=== PATIENT | male | born 1970 | race Caucasian/White ===

== ENCOUNTER → 2017-02-21 | Outpatient (CLI) | payer OTHER ==
--- NOTE | 2017-02-21 12:41 | US ---
EXAMINATION TYPE: US venous doppler duplex LE LT DATE OF EXAM: 02/21/2017 12:27 PM COMPARISON: NONE CLINICAL HISTORY: L03.116 CELLULITIS OF LOWER EXT,R60.9 EDEMA. SIDE PERFORMED: Left TECHNIQUE: The lower extremity deep venous system is examined utilizing real time linear array sonog brandy with graded compression, doppler sonography and color-flow sonography. VESSELS IMAGED: External Iliac Vein (EIV) Common Femoral Vein Deep Femoral Vein Greater Saphenous Vein * Femoral Vein Popliteal Vein Small Saphenous Vein * Proximal Calf Veins (* superficial vessels) Also, looked at varices in calf. All were compressible. * Note: attempted to call Number provided, office closed. Left Leg: Grayscale, color doppler, spectral doppler imaging performed of the deep veins of the left lower extr emity. There is normal flow, compressibility, vascular waveforms. IMPRESSION: No ultrasound evidence for acute DVT in the left lower extremity.
== END | disposition home or self-care (01) ==
LOC: RADUSWWP 11:55
PROVIDERS: ATTEND Family Medicine
DX: R60.9 Edema, unspecified (principal); L03.116 Cellulitis of left lower limb
CPT/HCPCS: 80048; 85025

== ENCOUNTER 2017-02-22 14:12 | Observation (INO) | payer OTHER ==
--- NOTE | 2017-02-22 14:55 | ED ---
Extremity Problem HPI - General Chief complaint: Extremity Problem,Nontraumatic Stated complaint: Cellulitis Time Seen by Provider: 02/22/17 14:38 Source: patient, RN notes reviewed Mode of arrival: ambulatory Limitations: no limitations - History of Present Illness Initial comments: Patient is a 46-year-old male presents to the emergency room for evaluation of left leg cellulitis. Patient states he noticed yesterday a red streak going up his anterior bland. Patient states he went to his primary care provider and they did blood work and a venous Doppler ultrasound. Patient states ultrasound was negative for a DVT. Patient states he was supposed to be placed on antibiotics but they never called into the pharmacy. Patient states today he noticed that the redness is starting to circumferentiate around his ankle. Patient states that the area is very warm to touch. Patient denies history of cellulitis. Patient denies history of MRSA or any other type of skin infection. Patient denies injuring the area. Patient states he's had a low- grade fever over the past 3 days. Patient states he had nausea and vomiting yesterday. Patient denies numbness or tingling in his toes. Patient denies calf pain. - Related Data Home Medications Medication Instructions Recorded Confirmed No Known Home Medications [No 02/22/17 02/22/17 Known Home Medications] Allergies Allergy/AdvReac Type Severity Reaction Status Date / Time No Known Allergies Allergy Verified 02/22/17 14:49 Review of Systems ROS Statement: Those systems with pertinent positive or pertinent negative responses have been documented in the HPI. ROS Other: All systems not noted in ROS Statement are negative. Past Medical History Past Medical History: No Reported History History of Any Multi-Drug Resistant Organisms: None Reported Past Surgical History: No Surgical Hx Reported Past Psychological History: No Psychological Hx Reported Smoking Status: Former smoker Past Alcohol Use History: None Reported Past Drug Use History: None Reported General Exam - General Exam Comments Initial Comments: Laying in exam room, no distress. Limitations: no limitations General appearance: alert, in no apparent distress Head exam: Present: atraumatic, normocephalic, normal inspection Eye exam: Present: normal appearance ENT exam: Present: normal exam Neck exam: Present: normal inspection Respiratory exam: Present: normal lung sounds bilaterally. Absent: respiratory distress Cardiovascular Exam: Present: regular rate, normal rhythm, normal heart sounds Extremities exam: Present: full ROM, other (Erythema and redness over the anterior bland radiating from the ankle to the inferior portion of the knee, erythema circumferentially radiating around the ankle.). Absent: tenderness Back exam: Present: normal inspection Neurological exam: Present: alert, oriented X3, CN II-XII intact Psychiatric exam: Present: normal affect, normal mood Skin exam: Present: warm, dry, intact Course Vital Signs 02/22/17 02/22/17 14:24 16:25 Temperature 98.6 F 98.0 F Pulse Rate 103 H 89 Respiratory 20 20 Rate Blood Pressure 133/83 137/72 O2 Sat by Pulse 96 98 Oximetry Medical Decision Making - Medical Decision Making Patient is a 46-year-old male presents emergency room for evaluation of left leg cellulitis. Patient states that he was have worsened since yesterday. Patient's WBC is actually lower than it was yesterday. Due to symptoms of spreading, will start patient on Vanco and have him admitted for further evaluation. Case discussed with Dr. Hay. Dr. Hay discussed case with Dr. Hoff who agreed to admit patient. - Lab Data Result diagrams: 02/22/17 15:15 02/22/17 15:15 Lab Results 02/22/17 02/22/17 02/22/17 Range/Units 15:15 15:15 15:15 WBC 11.0 H (3.8-10.6) k/uL RBC 5.56 (4.30-5.90) m/uL Hgb 16.0 (13.0-17.5) gm/dL Hct 46.4 (39.0-53.0) % MCV 83.4 (80.0-100.0) fL MCH 28.8 (25.0-35.0) pg MCHC 34.5 (31.0-37.0) g/dL RDW 13.4 (11.5-15.5) % Plt Count 138 L (150-450) k/uL Neutrophils % 80 % Lymphocytes % 14 % Monocytes % 4 % Eosinophils % 2 % Basophils % 0 % Neutrophils # 8.7 H (1.3-7.7) k/uL Lymphocytes # 1.5 (1.0-4.8) k/uL Monocytes # 0.4 (0-1.0) k/uL Eosinophils # 0.2 (0-0.7) k/uL Basophils # 0.0 (0-0.2) k/uL Sodium 138 (137-145) mmol/L Potassium 3.7 (3.5-5.1) mmol/L Chloride 106 (98-107) mmol/L Carbon Dioxide 22 (22-30) mmol/L Anion Gap 10 mmol/L BUN 13 (9-20) mg/dL Creatinine 1.02 (0.66-1.25) mg/dL Est GFR (MDRD) Af Amer >60 (>60 ml/min/1.73 sqM) Est GFR (MDRD) Non-Af >60 (>60 ml/min/1.73 sqM) Glucose 148 H (74-99) mg/dL Plasma Lactic Acid Milind 0.9 (0.7-2.0) mmol/L Calcium 8.5 (8.4-10.2) mg/dL Total Bilirubin 0.8 (0.2-1.3) mg/dL AST 26 (17-59) U/L ALT 36 (21-72) U/L Alkaline Phosphatase 71 (38-126) U/L Total Protein 6.5 (6.3-8.2) g/dL Albumin 3.5 (3.5-5.0) g/dL Disposition Clinical Impression: Left leg cellulitis Disposition: ADMITTED IP TO THIS [facility] Condition: Stable Decision Date: 02/22/17
[2017-02-22 15:25] LABS: Basophils % (A) 0 %; CH 29.2; CHCM 35.1; Eosinophils # (A) 0.2 k/uL (0-0.7); Eosinophils % (A) 2 %; HCT 46.4 % (39.0-53.0); HDW 2.52; Luc # (Auto) 0.13; Luc % (Auto) 1; Lymphocytes # (A) 1.5 k/uL (1.0-4.8); Lymphocytes % (A) 14 %; MCH 28.8 pg (25.0-35.0); MCHC 34.5 g/dL (31.0-37.0); MCV 83.4 fL (80.0-100.0); Mean Platelet Volume 7.2; Monocytes # (A) 0.4 k/uL (0-1.0); Monocytes % (A) 4 %; Neutrophils # (A) 8.7 k/uL (1.3-7.7); Neutrophils % (A) 80 %; RBC 5.56 m/uL (4.30-5.90); RDW 13.4 % (11.5-15.5); WBC (Perox) 10.26
[2017-02-22 15:38] LABS: ALT 36 U/L (21-72); AST 26 U/L (17-59); Alkaline Phosphatase 71 U/L (38-126); Anion Gap 10 mmol/L; Blood Urea Nitrogen 13 mg/dL (9-20); Calcium 8.5 mg/dL (8.4-10.2); Carbon Dioxide 22 mmol/L (22-30); Chloride 106 mmol/L (98-107); Glucose 148 mg/dL (74-99); Non-African American GFR(MDRD) >60 (>60 ml/min/1.73 sqM); Potassium 3.7 mmol/L (3.5-5.1); Sodium 138 mmol/L (137-145); Total Bilirubin 0.8 mg/dL (0.2-1.3); Total Protein 6.5 g/dL (6.3-8.2)
[2017-02-22] MEDS ORDERED: VANCOMYCIN IV PER PHARMACY 1 EACH MISC MISCELLANE PRN (16:00)
[2017-02-22] MEDS ORDERED: KETOROLAC 30 MG/ML 1 ML VIAL IVP PRN ×2 (16:02→18:52)
[2017-02-22] MEDS ORDERED: NALOXONE 0.4 MG/ML 1 ML VIAL IV PRN (16:02)
[2017-02-22] MEDS ORDERED: ACETAMINOPHEN TAB 325 MG TAB PO PRN (16:02)
[2017-02-22] MEDS ORDERED: ONDANSETRON 4 MG/2 ML VIAL IVP PRN (16:02)
[2017-02-22] MEDS ORDERED: VANCOMYCIN 2,000 MG in SODIUM CHLORIDE 0.9% 500 ML IVPB STA (16:04)
[2017-02-22] MEDS: SODIUM CHLORIDE 0.9% 1,000 ML IV SCH (18:40)
[2017-02-22] MEDS ORDERED: ALPRAZolam 0.25 MG TAB PO PRN (18:51)
[2017-02-22] MEDS ORDERED: TEMAZEPAM 15 MG CAP PO PRN (18:51)
[2017-02-22 20:01] VITALS: BMI 35.9
[2017-02-22] MEDS: IBUPROFEN 400 MG TAB PO PRN (21:01)
[2017-02-22] MEDS: HEPARIN SODIUM,PORCINE 5,000 UNIT/ML 1 ML VIAL SQ SCH (23:14)
[2017-02-22] MEDS: ceFAZolin 2 GM in SODIUM CHLORIDE 0.9% 100 ML IVPB SCH (23:23)
[2017-02-23] MEDS ORDERED: VANCOMYCIN 1,750 MG in SODIUM CHLORIDE 0.9% 250 ML IVPB SCH ×2
[2017-02-23] MEDS: SODIUM CHLORIDE 0.9% 1,000 ML IV SCH ×2 (04:09→14:24)
[2017-02-23 06:56] LABS: Basophils % (A) 1 %; CH 29.6; CHCM 34.7; Eosinophils # (A) 0.4 k/uL (0-0.7); Eosinophils % (A) 4 %; HCT 45.9 % (39.0-53.0); HDW 2.54; HGB 15.4 gm/dL (13.0-17.5); Luc # (Auto) 0.23; Luc % (Auto) 3; Lymphocytes # (A) 2.2 k/uL (1.0-4.8); Lymphocytes % (A) 25 %; MCH 28.7 pg (25.0-35.0); MCHC 33.5 g/dL (31.0-37.0); MCV 85.8 fL (80.0-100.0); Mean Platelet Volume 7.5; Monocytes # (A) 0.5 k/uL (0-1.0); Monocytes % (A) 6 %; Neutrophils # (A) 5.6 k/uL (1.3-7.7); Neutrophils % (A) 62 %; RBC 5.34 m/uL (4.30-5.90); RDW 14.9 % (11.5-15.5); WBC 8.9 k/uL (3.8-10.6); WBC (Perox) 9.06
[2017-02-23 07:18] LABS: Anion Gap 7 mmol/L; Blood Urea Nitrogen 13 mg/dL (9-20); Calcium 8.4 mg/dL (8.4-10.2); Carbon Dioxide 21 mmol/L (22-30); Chloride 109 mmol/L (98-107); Glucose 97 mg/dL (74-99); Non-African American GFR(MDRD) >60 (>60 ml/min/1.73 sqM); Potassium 3.9 mmol/L (3.5-5.1); Sodium 137 mmol/L (137-145)
[2017-02-23 07:52] LABS: Hemoglobin A1C 5.7 % (4.2-6.1)
[2017-02-23] MEDS: ceFAZolin 2 GM in SODIUM CHLORIDE 0.9% 100 ML IVPB SCH ×2 (08:42→16:10)
[2017-02-23] MEDS: HEPARIN SODIUM,PORCINE 5,000 UNIT/ML 1 ML VIAL SQ SCH ×2 (08:44→21:43)
[2017-02-23] MEDS: PANTOPRAZOLE 40 MG TABLET PO SCH (08:44)
[2017-02-23] MEDS: HYDROcodone/APAP 5-325MG 1 EACH TAB PO PRN ×2 (09:32→16:05)
--- NOTE | 2017-02-23 10:28 | HP ---
HISTORY AND PHYSICAL DATE OF SERVICE: 02/22/2002. CHIEF COMPLAINT: Pain and swelling of the left leg. HISTORY: This 46-year-old gentleman with past medical history of no significant illness, nicotine dependence, being followed by Dr. 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 In December the patient had an episode of cellulitis treated with antibiotics and improved significantly on the left leg. Currently for the last couple of days the patient was noted to have pain, redness, and swelling of the left leg. The patient came to [facility] and was admitted for further evaluation. The patient also had some nausea, vomiting, and abdominal symptoms also. Ultrasound was negative for DVT. There is no history of fevers or rigors. No history of headache, loss of consciousness, or seizures at this time. PAST MEDICAL HISTORY: History of a cellulitis, history of nicotine dependence. MEDICATIONS: None prior to admission. ALLERGIES: None. FAMILY HISTORY: No h/o stroke or mi in the family. SOCIAL HISTORY: Previous history of smoking. No alcohol. REVIEW OF SYSTEMS: ENT: No diminished vision or hearing. CARDIOVASCULAR: No angina. RESPIRATORY: No cough or hemoptysis. GI: No nausea. : No dysuria. NERVOUS SYSTEM: No numbness or weakness. MUSCULOSKELETAL: As mentioned. HEMATOLOGY: No anemia. ENDOCRINE: No history of diabetes or hypothyroidism. CONSTITUTIONAL: As mentioned. HEMATOLOGY: Negative. PSYCHIATRY: As mentioned earlier. PHYSICAL EXAMINATION: VITAL SIGNS: The patient is alert and oriented x3. Pulse is 89, blood pressure 137/72, respiratory rate 20, temperature 98 degrees, pulse ox 98% on room air. HEENT: Conjunctivae normal. NECK: No JVD. CARDIOVASCULAR: S1 and S2 muffled. LUNGS: Breath sounds diminished at the bases. No rhonchi no crackles. ABDOMEN: Soft, nontender. No mass palpable. EXTREMITIES: Left leg has significant dryness of skin as well as erythema, tenderness, and warmth to the touch in the right mid part of the leg circumferentially. Otherwise pulses normal. NERVOUS SYSTEM: Higher functions as mentioned. Moves all limbs equally. No focal motor or sensory defects. SKIN: As mentioned. LABS: WBC 11, platelets 130. ASSESSMENT: 1. Acute left leg cellulitis with systemic inflammatory response syndrome. 2. Mild thrombocytopenia. 3. Increased random blood sugar. 4. History of nicotine dependence. RECOMMENDATIONS AND DISCUSSION: In this 46-year-old gentleman who presented with multiple complex medical issues , we will monitor the patient closely. Continue the current management and start on broad- spectrum IV antibiotics. Otherwise I would also recommend repeat labs. Symptomatic treatment of the same. DVT prophylaxis. Otherwise I would also recommend a hemoglobin A1c. Symptomatic treatment for pain. Otherwise prognosis is guarded because of multiple complex medical issues. Further recommendations to follow. EMIR / KYLEEN: [id number] / MTDYvan
[2017-02-23] MEDS: IBUPROFEN 400 MG TAB PO PRN (12:58)
--- NOTE | 2017-02-23 21:33 | PN ---
PROGRESS NOTE DATE OF SERVICE: 02/23/2017 This is a progress note. INTERVAL HISTORY: This 46-year-old gentleman admitted with left leg cellulitis and SARS is being closely monitored. The erythema is slightly better and distribution of pain and warmth over the area on the left leg cellulitis. No chest pain. No palpitations. No fever. PHYSICAL EXAM: Alert, oriented times three. Pulse 88, blood pressure 110/60, respiration 18, temperature 97.9, pulse ox 94% room air. HEENT: Conjunctivae normal. Neck: No jugular venous distention. CARDIOVASCULAR: S1, S2. Respiratory: Breath sounds diminished in the bases. No rhonchi. No crackles. ABDOMEN: Soft, nontender. No mass palpable. Legs no edema. No swelling. Central nervous system: No focal deficits. Left leg erythema, tenderness and evidence cellulitis present. LABS: WBC 8.2, hemoglobin 15.1, platelets 140. ASSESSMENT: 1. Acute left leg cellulitis with severe acute respiratory syndrome. 2. Mild thrombocytopenia. 3. Increased random blood sugar. 4. History of nicotine dependence. RECOMMENDATIONS AND DISCUSSION: 1. Recommend to continue current medications. 2. Continue with broad-spectrum IV antibiotics. 3. I would also recommend Silvadene for local application also. 4. Guarded prognosis. 5. Further recommendations to follow. MMODL / IJN: [id number] /
[2017-02-24] MEDS: ceFAZolin 2 GM in SODIUM CHLORIDE 0.9% 100 ML IVPB SCH ×4 (00:17→23:36)
[2017-02-24] MEDS: SODIUM CHLORIDE 0.9% 1,000 ML IV SCH ×3 (03:21→18:19)
[2017-02-24 07:35] LABS: Anion Gap 8 mmol/L; Blood Urea Nitrogen 12 mg/dL (9-20); Calcium 8.3 mg/dL (8.4-10.2); Carbon Dioxide 23 mmol/L (22-30); Chloride 106 mmol/L (98-107); Glucose 97 mg/dL (74-99); Non-African American GFR(MDRD) >60 (>60 ml/min/1.73 sqM); Potassium 3.9 mmol/L (3.5-5.1); Sodium 137 mmol/L (137-145)
[2017-02-24] MEDS: PANTOPRAZOLE 40 MG TABLET PO SCH (07:35)
[2017-02-24] MEDS: HEPARIN SODIUM,PORCINE 5,000 UNIT/ML 1 ML VIAL SQ SCH ×3 (09:05→23:47)
[2017-02-24] MEDS: IBUPROFEN 400 MG TAB PO PRN (15:06)
--- NOTE | 2017-02-24 19:09 | P.PN ---
Subjective Date of service 02/24/2017. Personal being dictated for Dr. Hoff. Interval history: This a 46-year-old gentleman admitted with left leg cellulitis , and multiple other medical issues. Maintained on antibiotics, Silvadene dressings with improvement noted. Denies chest pain, palpitations. Afebrile. Objective - Vital Signs Vital signs: Vital Signs Temp 98.3 F 02/24/17 15:00 Pulse 88 02/24/17 16:00 Resp 14 02/24/17 16:00 BP 137/71 02/24/17 15:00 Pulse Ox 95 02/24/17 15:00 Intake & Output 02/24/17 02/24/17 02/25/17 06:59 18:59 06:59 Intake Total 800 240 Output Total 2 Balance 800 238 Intake: Oral 800 240 Output: Urine 2 Other: Voiding Method Toilet Toilet # Voids 1 1 - Exam PHYSICAL EXAM: VITAL SIGNS: As above GENERAL: During up in bed, no acute distress HEENT: Conjunctivae normal. eyes normal. NECK: No JVD. No thyroid enlargement. No LNs CARDIOVASCULAR: S1, S2 muffled. No murmur RESPIRATION: Breath sounds diminished in the bases. No rhonchi or crackles. No bronchial breathing. ABDOMEN: Soft, nontender . No guarding. no masses palpable. No ascites, No hepatosplenomegaly.Bowel sounds heard. LEGS: No edema. no swelling PSYCHIATRY: Alert and oriented -3, mood and affect normal. NERVOUS SYSTEM: Cranial N 2-12 grossly normal. Moves all 4 limbs. Diffuse weakness No focal deficits. No sensory deficit. No signs of cerebellar dysfucntion. Skin: Left leg cellulitis erythema,tenderness improving Joints: No active swelling. No inflammation. Lymphatic system. No LN neck axilla or groin. - Labs CBC & Chem 7: 02/23/17 06:09 02/24/17 06:44 Labs: Abnormal Lab Results - Last 24 Hours (Table) 02/24/17 Range/Units 06:44 Calcium 8.3 L (8.4-10.2) mg/dL Microbiology - Last 24 Hours (Table) 02/22/17 16:00 Blood Culture - Preliminary Blood No Growth after 48 hours Assessment and Plan Plan: 1. Acute left leg cellulitis with SIRS. 2. [ Mild thrombocytopenia]. 3. [] History of nicotine dependence.]. Plan: Continue on current medication regime ,monitoring and symptomatic treatment. Maintain antibiotics, Silvadene dressings as ordered. Discharge planning in progress for tomorrow. The impression and plan of care has been dictated as directed. : I performed a H&P examination of this patient and discussed the same with the dictator. I agree with the dictator's note. Any additional findings/opinions/ etc. will be noted.
[2017-02-24 22:22] VITALS: RESP 16
[2017-02-25 07:36] VITALS: BP 145/88; PULSE 83; TEMP 98
[2017-02-25] MEDS: ceFAZolin 2 GM in SODIUM CHLORIDE 0.9% 100 ML IVPB SCH (07:36)
[2017-02-25] MEDS: HEPARIN SODIUM,PORCINE 5,000 UNIT/ML 1 ML VIAL SQ SCH (07:37)
[2017-02-25] MEDS: PANTOPRAZOLE 40 MG TABLET PO SCH (07:37)
[2017-02-25] MEDS: SODIUM CHLORIDE 0.9% 1,000 ML IV SCH (07:38)
[2017-02-25 08:32] LABS: Anion Gap 7 mmol/L; Blood Urea Nitrogen 15 mg/dL (9-20); Calcium 8.5 mg/dL (8.4-10.2); Carbon Dioxide 25 mmol/L (22-30); Chloride 106 mmol/L (98-107); Glucose 106 mg/dL (74-99); Non-African American GFR(MDRD) >60 (>60 ml/min/1.73 sqM); Potassium 4.4 mmol/L (3.5-5.1); Sodium 138 mmol/L (137-145)
--- NOTE | 2017-02-25 16:23 | P.DS ---
Providers Date of admission: 02/22/17 16:57 Expected date of discharge: 02/25/17 Attending physician: Nalini Hoff Primary care physician: Nicholas Holder [facility] Course: Final Diagnoses: 1. Acute left leg cellulitis with SIRS. 2. [Mild thrombocytopenia]. 3. History of nicotine dependence.]. Hospital course:This a 46-year-old gentleman admitted with left leg cellulitis, and multiple other medical issues. Maintained on antibiotics, Silvadene dressings with significant clinical improvement. Patient is being discharged home in a stable condition with guarded prognosis. The impression and plan of care has been dictated as directed as a scribe. Dr.: I performed a H&P examination of this patient and discussed the same with the dictator. I agree with the dictator's note. Any additional findings/opinions/ etc. will be noted. Patient Condition at Discharge: Stable Plan - Discharge Summary New Discharge Prescriptions: New Cephalexin [Keflex] 500 mg PO Q6HR #28 cap HYDROcodone/APAP 5-325MG [[place] 5-325] 1 each PO Q4HR PRN #20 tab PRN Reason: Moderate Pain Pantoprazole [Protonix] 40 mg PO AC-BRKFST #30 tab SILVER sulfADIAZINE CREAM [Silvadene Cream] 1 applic TOPICAL DAILY #50 gm Discharge Medication List Cephalexin [Keflex] 500 mg PO Q6HR #28 cap 02/24/17 [Rx] HYDROcodone/APAP 5-325MG [[place] 5-325] 1 each PO Q4HR PRN #20 tab 02/24/17 [Rx] Pantoprazole [Protonix] 40 mg PO AC-BRKFST #30 tab 02/24/17 [Rx] SILVER sulfADIAZINE CREAM [Silvadene Cream] 1 applic TOPICAL DAILY #50 gm [Rx] Follow up Appointment(s)/Referral(s): Nicholas Holder DO [Primary Care Provider] - 03/03/17 8:20 am Ambulatory/Diagnostic Orders: Complete Blood Count w/diff [LAB.AMB] Time Frame: 3 Days, Location: Determined By Patient Patient Instructions/Handouts: Cephalexin (By mouth), Silver Sulfadiazine (On the skin), Hydrocodone/Acetaminophen (By mouth), Pantoprazole (By mouth), Cellulitis (DC) Activity/Diet/Wound Care/Special Instructions: Diet: Cardiac Activity: Limited until follow up Silvadene Amrik wrap change daily. Discharge Disposition: HOME SELF-CARE
== END 2017-02-25 15:30 | disposition home or self-care (01) ==
LOC: EC 14:12 → 5MS5E 16:57
PROVIDERS: ADMIT Hospitalist; ATTEND Hospitalist
DX: L03.116 Cellulitis of left lower limb (principal); Z87.891 Personal history of nicotine dependence; D69.6 Thrombocytopenia, unspecified
CPT/HCPCS: 96366 ×3; 96367; 96372 ×3; 96365; 99284; 36415; 80053; 80048 ×3; 83036; 83605; 85025 ×2; 87040; G0378 ×4; J3370 ×2; J1644 ×3; J0690 ×4

== ENCOUNTER 2018-04-08 09:00 | Observation (INO) | payer OTHER ==
[2018-04-08] MEDS ORDERED: MECLIZINE 12.5 MG TAB PO STA (11:20)
[2018-04-08 11:40] LABS: Basophils # (A) 0.1 k/uL (0-0.2); Basophils % (A) 1 %; Eosinophils # (A) 0.3 k/uL (0-0.7); Eosinophils % (A) 4 %; HCT 49.7 % (39.0-53.0); HGB 16.8 gm/dL (13.0-17.5); Lymphocytes # (A) 2.1 k/uL (1.0-4.8); Lymphocytes % (A) 27 %; MCH 28.5 pg (25.0-35.0); MCHC 33.8 g/dL (31.0-37.0); MCV 84.4 fL (80.0-100.0); Monocytes # (A) 0.4 k/uL (0-1.0); Monocytes % (A) 5 %; Neutrophils % (A) 62 %; Platelet Count 189 k/uL (150-450); RBC 5.89 m/uL (4.30-5.90)
[2018-04-08 11:45] LABS: ALT 24 U/L (21-72); AST 21 U/L (17-59); Albumin 3.4 g/dL (3.5-5.0); Alkaline Phosphatase 76 U/L (38-126); Anion Gap 6 mmol/L; Blood Urea Nitrogen 15 mg/dL (9-20); Calcium 8.8 mg/dL (8.4-10.2); Carbon Dioxide 24 mmol/L (22-30); Chloride 109 mmol/L (98-107); Glucose 104 mg/dL (74-99); Magnesium 2.1 mg/dL (1.6-2.3); Potassium 4.6 mmol/L (3.5-5.1); Sodium 139 mmol/L (137-145); Total Bilirubin 0.6 mg/dL (0.2-1.3); Total Protein 6.3 g/dL (6.3-8.2)
--- NOTE | 2018-04-08 12:58 | ED ---
General Adult HPI - General Chief complaint: Dizziness Stated complaint: DIZZINESS Time Seen by Provider: 04/08/18 10:07 Source: patient, RN notes reviewed, old records reviewed Mode of arrival: wheelchair Limitations: no limitations - History of Present Illness Initial comments: 47-year-old male patient presents to ED with new onset dizziness. Patient says that he felt dizziness during his sleep last night, and woke up dizziness this morning. Patient states the dizziness is worse when he moves his head side to side. Patient has no other complaints besides dizziness. Patient reports no cardiac history. She reports no chronic health conditions. She takes no medications. Systemic: Pt denies fatigue, myalgia, fever/chills, rash. Pt denies weakness, night sweats, weight loss. Neuro: Pt denies headache, visual disturbances, syncope or pre-syncope. HEENT: Pt denies ocular discharge or irritation, otalgia, rhinorrhea, pharyngitis or notable lymphadenopathy. Cardiopulmonary: Pt denies chest pain, SOB, heart palpitations. Abdominal/GI: Pt denies abdominal pain, n/v/d. : Pt denies dysuria, burning w/ urination, frequency/urgency. MSK: Pt denies myalgia, loss of strength or function in extremities. - Related Data Home Medications Medication Instructions Recorded Confirmed Calcium Carbonate [Tums] 1,500 mg PO TID PRN 04/08/18 04/08/18 Allergies Allergy/AdvReac Type Severity Reaction Status Date / Time No Known Allergies Allergy Verified 04/08/18 09:17 Review of Systems ROS Statement: Those systems with pertinent positive or pertinent negative responses have been documented in the HPI. ROS Other: All systems not noted in ROS Statement are negative. Past Medical History Past Medical History: No Reported History History of Any Multi-Drug Resistant Organisms: None Reported Past Surgical History: No Surgical Hx Reported Past Anesthesia/Blood Transfusion Reactions: No Reported Reaction Past Psychological History: No Psychological Hx Reported Smoking Status: Current every day smoker Past Alcohol Use History: None Reported Past Drug Use History: None Reported General Exam - General Exam Comments Initial Comments: Constitutional: NAD, AOX3, Pt has pleasant affect. HEENT: NC/AT, trachea midline, neck supple, no lymphadenopathy. Posterior pharynx non erythematous, without exudates. External ears appear normal, without discharge. Mucous membranes moist. Eyes PERRLA. Extraocular movements intact, no nystagmus. There is no scleral icterus. No pallor noted. Cardiopulmonary: RRR, II/ systolic murmur noted in right upper sternal border , no JVD noted. Lungs CTAB in anterior and posterior fontanez. No peripheral edema. Abdominal exam: Abdomen soft and non-distended. Abdomen non-tender to palpation in all 4 quadrants. Bowel sounds active in LLQ. No hepatosplenomegaly. Neuro: Cranial nerves II through XII grossly intact. Limitations: no limitations Course Vital Signs 04/08/18 09:03 Temperature 97.6 F Pulse Rate 78 Respiratory 18 Rate Blood Pressure 138/94 O2 Sat by Pulse 95 Oximetry Medical Decision Making - Medical Decision Making Initial EKG of patient displayed some P wave inversion. No other old EKGs available for comparison. Troponin negative. ECG and BMP unremarkable. Murmur noted in right upper sternal border not previously identified. Physical exam otherwise benign. Patient dizziness much improved with Antivert. Patient no longer experiencing nausea. Patient to be admitted into observation for continued monitoring. - Lab Data Result diagrams: 04/08/18 11:16 04/08/18 11:16 Lab Results 04/08/18 04/08/18 Range/Units 11:16 11:16 WBC 8.0 (3.8-10.6) k/uL RBC 5.89 (4.30-5.90) m/uL Hgb 16.8 (13.0-17.5) gm/dL Hct 49.7 (39.0-53.0) % MCV 84.4 (80.0-100.0) fL MCH 28.5 (25.0-35.0) pg MCHC 33.8 (31.0-37.0) g/dL RDW 13.0 (11.5-15.5) % Plt Count 189 (150-450) k/uL Neutrophils % 62 % Lymphocytes % 27 % Monocytes % 5 % Eosinophils % 4 % Basophils % 1 % Neutrophils # 5.0 (1.3-7.7) k/uL Lymphocytes # 2.1 (1.0-4.8) k/uL Monocytes # 0.4 (0-1.0) k/uL Eosinophils # 0.3 (0-0.7) k/uL Basophils # 0.1 (0-0.2) k/uL Sodium 139 (137-145) mmol/L Potassium 4.6 (3.5-5.1) mmol/L Chloride 109 H (98-107) mmol/L Carbon Dioxide 24 (22-30) mmol/L Anion Gap 6 mmol/L BUN 15 (9-20) mg/dL Creatinine 0.93 (0.66-1.25) mg/dL Est GFR (CKD-EPI)AfAm >90 (>60 ml/min/1.73 sqM) Est GFR (CKD-EPI)NonAf >90 (>60 ml/min/1.73 sqM) Glucose 104 H (74-99) mg/dL Calcium 8.8 (8.4-10.2) mg/dL Magnesium 2.1 (1.6-2.3) mg/dL Total Bilirubin 0.6 (0.2-1.3) mg/dL AST 21 (17-59) U/L ALT 24 (21-72) U/L Alkaline Phosphatase 76 (38-126) U/L Total Protein 6.3 (6.3-8.2) g/dL Albumin 3.4 L (3.5-5.0) g/dL - EKG Data -: EKG Interpreted by Me EKG Comments: Inverted P and T waves in lead 3. Ventricular rate 67. MI interval 178 QRS 100 QT/QTc 438/462QT prolongation. Normal sinus rhythm When compared to previous EKG there are: previous EKG unavailable Disposition Clinical Impression: Dizziness, nonspecific, Abnormal EKG Disposition: ADMITTED IP TO THIS HOSP Condition: Good Instructions: Vertigo (ED), Dizziness (ED) Additional Instructions: Admit to observation unit. Is patient prescribed a controlled substance at d/c from ED?: No Referrals: Shan Arnold MD [Primary Care Provider] - 1-2 days Time of Disposition: 14:00 Decision to Admit Reason: Admit from EC
[2018-04-08] MEDS ORDERED: NITROGLYCERIN SL TABS 0.4 MG TAB SUBLINGUAL PRN (14:04)
[2018-04-08 16:12] VITALS: BMI 34.7
[2018-04-08 17:34] LABS: Creatine Kinase MB 0.8 ng/mL (0.0-2.4); Troponin I 0.016 ng/mL (0.000-0.034)
[2018-04-08] MEDS ORDERED: ACETAMINOPHEN TAB 325 MG TAB PO PRN (20:02)
[2018-04-09 01:24] LABS: Creatine Kinase MB 0.8 ng/mL (0.0-2.4); Troponin I 0.033 ng/mL (0.000-0.034)
[2018-04-09 02:46] LABS: Cholesterol 172 mg/dL (<200); HDL Cholesterol 30 mg/dL (40-60); LDL Cholesterol,Calculated 109 mg/dL (0-99); Triglycerides 165 mg/dL (<150)
[2018-04-09 03:20] VITALS: RESP 18
[2018-04-09] MEDS ORDERED: ASPIRIN 325 MG TAB PO SCH (09:00)
[2018-04-09] MEDS ORDERED: LOSARTAN 25 MG TAB PO SCH (12:15)
--- NOTE | 2018-04-09 15:18 | P.CRDCN ---
History of Present Illness History of present illness: Mr. Munoz is a pleasant 47-year-old male with history of hypertension and is currently untreated and he has a heavy smoker. He denies history of coronary artery disease, dyslipidemia or diabetes mellitus. 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 We've been asked to see him in consultation secondary to abnormal EKG. He states he woke up this morning feeling acutely dizzy and the room was spinning. He also felt nauseated. He never vomited. He denies having chest pain, shortness of breath, palpitations or diaphoresis. The dizziness persisted and he was unable to ambulate with bracing himself. Once coming to ED he was given antivert and his symptoms improved immensely. He denies any further dizziness since receiving antivert. He is seen and examined sitting up in bed with his spouse at the bedside in no acute distress. Blood pressures have been fluctuating and elevated as high as 180 systolic on admission 138/94. EKG on arrival reveals sinus mechanism with non-specific T-wave inversions noted inferior leads and non-specific ST abnormalities. No old for comparison. Laboratory data reviewed, hemoglobin 16.8 platelets 189, sodium 139, potassium 4.6, magnesium 2.1, creatinine 0.93, cardiac enzymes negative 3, LDL 109, HDL 30, triglycerides 165 and total cholesterol 172. At the time of my exam: CONSTITUTIONAL: Denies fever. Denies chills. EYES: Denies blurred vision. Denies vision changes. Denies eye pain. EARS, NOSE, MOUTH & THROAT: Denies headache. Denies sore throat. Denies ear pain. CARDIOVASCULAR: Denies chest pain. Denies shortness of breath. Denies orthopnea. Denies PND. Denies palpitations. RESPIRATORY: Denies cough. GASTROINTESTINAL: Denies abdominal pain. Denies diarrhea. Denies constipation. Denies nausea. Denies vomiting. MUSCULOSKELETAL: Denies myalgias. INTEGUMENTARY: Denies pruitis. Denies rash. NEUROLOGIC: Denies numbness. Denies tingling. Denies weakness. PSYCHIATRIC: Denies anxiety. Denies depression. ENDOCRINE: Denies fatigue. Denies weight change. Denies polydipsia. Denies polyurina. GENITOURINARY: Denies burning, hematuria or urgency with micturation. HEMATOLOGIC: Denies history of anemia. Denies bleeding. Blood pressure 131/82 heart rate 70 afebrile maintaining oxygen saturation on room air GENERAL: This is a 47-year-old male in no apparent distress at the time of my examination. HEENT: Head is atraumatic, normocephalic. Pupils are equal, round. Sclerae anicteric. Conjunctivae are clear. Mucous membranes of the mouth are moist. Neck is supple. There is no jugular venous distention. No carotid bruit is heard. LUNGS: Clear to auscultation no wheezes, rales or rhonchi. No chest wall tenderness is noted on palpation or with deep breathing. HEART: Regular rate and rhythm with systolic ejection murmur at the base, no rubs or gallops. S1 and S2 heard. ABDOMEN: Soft, nontender. Bowel sounds are heard. No organomegaly noted. EXTREMITIES: No evidence of peripheral edema and no calf tenderness noted. VASCULAR: Radial and dorsalis pedis pulses palpated, no evidence of clubbing. NEUROLOGIC: Patient is awake, alert and oriented x3. ASSESSMENT Vertigo, resolved with Antivert. Hypertension, untreated Abnormal EKG with T-wave inversions Chronic nicotine dependence PLAN An acute coronary event has been ruled out. Obtain 2-D echocardiogram and Doppler study to assess cardiac structure and function. Add on losartan 25 mg daily for blood pressure control. Suggest further evaluation of his vertigo possible CT of his brain or neurology evaluation. Further recommendations to follow based upon clinical course. Thank you kindly for this consultation. Nurse Practitioner note has been reviewed, I agree with a documented findings and plan of care. Patient was seen and examined. Past Medical History Past Medical History: No Reported History History of Any Multi-Drug Resistant Organisms: None Reported Past Surgical History: No Surgical Hx Reported Additional Past Surgical History / Comment(s): left leg cellulitis 2017. Past Anesthesia/Blood Transfusion Reactions: No Reported Reaction Past Psychological History: No Psychological Hx Reported Smoking Status: Current every day smoker Past Alcohol Use History: None Reported Additional Past Alcohol Use History / Comment(s): pt smokes 1.5 packs a day. Past Drug Use History: None Reported Medications and Allergies Home Medications Medication Instructions Recorded Confirmed Type Calcium Carbonate [Tums] 1,500 mg PO TID PRN 04/08/18 04/08/18 History Allergies Allergy/AdvReac Type Severity Reaction Status Date / Time No Known Allergies Allergy Verified 04/08/18 09:17 Physical Exam Vitals: Vital Signs Temp Pulse Pulse Pulse Pulse Pulse Resp 04/09/18 12:00 98.0 F 70 18 04/09/18 07:30 97.7 F 70 18 04/09/18 04:00 18 04/09/18 03:19 98.3 F 70 18 04/08/18 23:43 16 04/08/18 23:42 98.2 F 68 16 04/08/18 20:00 16 04/08/18 19:31 98.2 F 64 16 04/08/18 17:03 73 80 66 04/08/18 16:00 16 04/08/18 15:48 98.9 F 74 18 04/08/18 15:30 64 16 04/08/18 14:30 71 16 BP BP BP BP BP Pulse Ox 04/09/18 12:00 131/82 97 04/09/18 07:30 139/80 95 04/09/18 04:00 04/09/18 03:19 151/78 97 04/08/18 23:43 04/08/18 23:42 159/85 94 L 04/08/18 20:00 04/08/18 19:31 147/79 98 04/08/18 17:03 146/88 142/92 149/83 04/08/18 16:00 04/08/18 15:48 179/87 98 04/08/18 15:30 104/72 95 04/08/18 14:30 123/87 Intake and Output 04/08/18 04/09/18 04/09/18 22:59 06:59 14:59 Intake Total 676 Balance 676 Intake: Oral 476 Other 200 Other: Voiding Method Toilet Toilet Toilet # Voids 1 Weight 100.698 kg Results 04/08/18 11:16 04/08/18 11:16 Cardiac Enzymes 04/08/18 04/08/18 Range/Units 16:45 23:59 CK-MB (CK-2) 0.8 0.8 (0.0-2.4) ng/mL Troponin I 0.016 0.033 (0.000-0.034) ng/mL Lipids 04/08/18 Range/Units 11:16 Triglycerides 165 H (<150) mg/dL Cholesterol 172 (<200) mg/dL HDL Cholesterol 30 L (40-60) mg/dL Current Medications Generic Name Dose Route Start Last Admin Trade Name Freq PRN Reason Stop Dose Admin Acetaminophen 650 mg 04/08/18 20:02 Tylenol Tab PO Q4HR PRN Fever and/ or MILD Pain Aspirin 81 mg 04/10/18 09:00 Aspirin PO DAILY BETHANY Losartan Potassium 25 mg 04/09/18 12:15 04/09/18 12:56 Cozaar PO 25 mg DAILY BETHANY Administration Nitroglycerin 0.4 mg 04/08/18 14:04 Nitrostat SUBLINGUAL Q5M PRN Chest Pain Intake and Output 04/08/18 04/09/18 04/09/18 22:59 06:59 14:59 Intake Total 676 Balance 676 Intake: Oral 476 Other 200 Other: Voiding Method Toilet Toilet Toilet # Voids 1 Weight 100.698 kg 04/08/18 11:16 04/08/18 11:16
[2018-04-09 16:18] VITALS: BP 123/74; PULSE 71; TEMP 98.3
--- NOTE | 2018-04-09 17:42 | HP ---
HISTORY AND PHYSICAL CHIEF COMPLAINT: Dizziness. HISTORY OF PRESENT ILLNESS: This is the first known admission for this 47-year-old white male. He is overweight. He woke up in the morning with dizziness. Whenever he moved his head or turned it from side to side, he had vertigo. He had no chest pain, shortness of breath, diaphoresis, etc. He came to the emergency room, where it was determined by the ER physician that he should be admitted for observation. He does have a family history of heart disease. REVIEW OF SYSTEMS: He has had no diplopia, change in the vision or the hearing, neurologic changes, cough, hemoptysis, pleurisy, sputum production, history of hypertension, murmurs, rheumatic fever, orthopnea, PND, abdominal pain, nausea, vomiting, hematemesis, melena, hematochezia, jaundice, hematuria, frequency, urgency, renal disease, diabetes, etc. He had no shortness of breath or diaphoresis. He had no chest pain. Past medical history, family history, and personal and social histories reveal that he is NOT ALLERGIC TO ANY MEDICATION and not taking any. He has had no surgery. His family history is significant in that his father had heart disease and his mother had a carotid stenosis. He smokes more than a pack a day but does not use any drugs and he does not drink. He has never been told that he is diabetic, has hypertension or hyperlipidemia. PHYSICAL EXAMINATION: Blood pressure is 138/80 with a pulse of 80, respirations 16. He is afebrile. In general he appeared to be overweight, in no acute distress. Skin color is normal. Skin is warm and dry. Lymph nodes are not enlarged. Head, ears, eyes, nose, mouth and throat are normal. Neck veins are not distended. Thyroid is not enlarged. Chest is clear. Cardiac exam is normal and the abdomen soft and nontender. Extremities are normal. Neurologically he is intact. IMPRESSION: 1. Vertigo. 2. Labyrinthitis. PLAN: 1. Bed rest. 2. IV fluids. 3. Serial EKGs and enzymes. MMODL / IJN: [id number] /
--- NOTE | 2018-04-09 19:38 | ECHOF ---
Referral Reason:ekg abnormalities MEASUREMENTS -------- HEIGHT: 170.2 cm WEIGHT: 100.7 kg BP: IVSd: 1.6 cm (0.6 - 1.1) LVIDd: 4.4 cm (3.9 - 5.3) LVPWd: 1.6 cm (0.6 - 1.1) IVSs: 1.9 cm LVIDs: 3.2 cm LVPWs: 1.9 cm LA Diam: 3.8 cm (2.7 - 3.8) Ao Diam: 2.8 cm (2.0 - 3.7) LA Diam: 3.9 cm (2.7 - 3.8) AV Cusp: 2.4 cm (1.5 - 2.6) EPSS: 1.2 cm MV E Nader: 0.44 m/s MV DecT: 210 ms MV A Nader: 0.63 m/s MV E/A Ratio: 0.70 AV maxP.59 mmHg AV meanP.56 mmHg AR PHT: 312 ms RAP: 5.00 mmHg RVSP: 28.07 mmHg MV EF SLOPE: 85.05 mm/s (70 - 150) MV EXCURSION: 1.15 cm (> 18.000) FINDINGS -------- Sinus rhythm. This was a technically adequate study. The left ventricular size is normal. There is moderate concentric left ventricular hypertrophy. The right ventricle is normal in size. The left atrial size is normal. The right atrial size is normal. There is mild aortic valve sclerosis. There is [id number] aortic regurgitation. There is mo derate aortic stenosis present. Peak/mean gradient across the Aortic Valve is 40.59mmHg / 22.56mmHg . Functionally bicuspid aortic valve. Aortic valve is functionally bicuspid and is mildly thicken ed. Mild mitral annular calcification present. No mitral regurgitation. Mild tricuspid regurgitation present. There is no evidence of pulmonary hypertension. The right v entricular systolic pressure, as measured by Doppler, is 28.07mmHg. There is no pulmonic regurgitation present. The aortic root size is normal. There is no pericardial effusion. CONCLUSIONS -------- 1. Sinus rhythm. 2. The left ventricular size is normal. 3. There is moderate concentric left ventricular hypertrophy. 4. The right ventricle is normal in size. 5. The left atrial size is normal. 6. The right atrial size is normal. 7. There is mild aortic valve sclerosis. 8. There is [id number] aortic regurgitation. 9. There is moderate aortic stenosis present. 10. Peak/mean gradient across the Aortic Valve is 40.59mmHg / 22.56mmHg. 11. Functionally bicuspid aortic valve. 12. Aortic valve is functionally bicuspid and is mildly thickened. 13. Mild mitral annular calcification present. 14. No mitral regurgitation. 15. Mild tricuspid regurgitation present. 16. There is no evidence of pulmonary hypertension. 17. The right ventricular systolic pressure, as measured by Doppler, is 28.07mmHg. 18. There is no pulmonic regurgitation present. 19. The aortic root size is normal. 20. There is no pericardial effusion. [employer] SALES ADVISOR: Ashley Cope RDCS
--- NOTE | 2018-04-09 21:25 | DS ---
DISCHARGE SUMMARY CHIEF COMPLAINT: Labyrinthitis. HISTORY OF PRESENT ILLNESS AND PHYSICAL EXAM: Details of this man's history and physical can be found in the initial workup. LABORATORY STUDIES: While he was in a hospital he had laboratory studies, details of which can be found in the laboratory section of his chart. COURSE IN THE HOSPITAL: After admission, he was placed on bedrest, started on intravenous fluids and he had serial EKGs and enzymes. These were all normal. He had no further difficulties or abnormalities while he was in the hospital. It was felt he could go home. He will follow up in the office where further workup will be carried out. FINAL DIAGNOSES: 1. Labyrinthitis. 2. Family history of heart disease. OPERATIONS: None. CONSULTATIONS: Cardiology. He is improved. EMIR / ASHLEE: [id number] /
[2018-04-10] MEDS ORDERED: ASPIRIN 81 MG PO SCH (09:00)
== END 2018-04-09 16:41 | disposition home or self-care (01) ==
LOC: EC 09:00 → 1SOBS 15:23
PROVIDERS: ADMIT Family Medicine; ATTEND Family Medicine
DX: H83.09 Labyrinthitis, unspecified ear (principal); R94.31 Abnormal electrocardiogram [ECG] [EKG]; I10 Essential (primary) hypertension; R01.1 Cardiac murmur, unspecified; F17.210 Nicotine dependence, cigarettes, uncomplicated; E66.3 Overweight; Z68.34 Body mass index [BMI] 34.0-34.9, adult; Z86.19 Personal history of other infectious and parasitic diseases; Z82.49 Family history of ischemic heart disease and other diseases of the circulatory system
CPT/HCPCS: 99285; 36415; 93306; 80061; 80053; 82550; 82553; 83735; 84484; 85025; G0378 ×2

== ENCOUNTER 2019-01-19 05:55 | Observation (INO) | payer OTHER ==
[2019-01-19] MEDS ORDERED: SODIUM CHLORIDE 0.9% 1,000 ML IV STA (06:15)
--- NOTE | 2019-01-19 06:40 | ED ---
Chest Pain HPI <Amaury Reddy - Last Filed: 01/19/19 08:24> - General Source: patient Mode of arrival: wheelchair Limitations: no limitations <Kirstin Acosta - Last Filed: 01/19/19 12:56> - General Chief Complaint: Chest Pain Stated Complaint: Chest pain Time Seen by Provider: 01/19/19 06:06 - History of Present Illness Initial Comments: Patient is a 48-year-old male presenting to the emergency Department with complaints of left-sided chest pain 3 hours. Patient states he was having trouble sleeping and woke up about 3 AM with left-sided chest pain. Patient states he also feels slightly short of breath. Patient admits to having cough, chest congestion for the last 1-2 weeks. Patient denies any fevers, chills. Patient states the pain is staying in the left side of his chest. No radiation. 6/10 pain scale. Patient denies any history of heart disease. Patient denies any other significant past medical history. Patient denies taking medication for anything. Patient does admit to smoking about a pack a day. Admits to family history of mother and father with heart disease. Patient denies any nausea, vomiting, abdominal pain. (Kirstin Acosta) - Related Data Home Medications Medication Instructions Recorded Confirmed No Known Home Medications 01/19/19 01/19/19 Allergies Allergy/AdvReac Type Severity Reaction Status Date / Time No Known Allergies Allergy Verified 01/19/19 07:24 Review of Systems ROS Other: All systems not noted in ROS Statement are negative. <Amaury Reddy - Last Filed: 01/19/19 08:24> ROS Other: All systems not noted in ROS Statement are negative. <Kirstin Acosta - Last Filed: 01/19/19 12:56> ROS Statement: Those systems with pertinent positive or pertinent negative responses have been documented in the HPI. EKG Findings - EKG Comments: EKG Findings:: Ventricular rate 68, AZ interval 174, QTC 444. Normal sinus rhythm. No acute ST segment elevations. No T-wave inversions. Q wave noted in lead 3. <Kirstin Acosta - Last Filed: 01/19/19 12:56> Past Medical History Past Medical History: No Reported History History of Any Multi-Drug Resistant Organisms: None Reported Past Surgical History: No Surgical Hx Reported Additional Past Surgical History / Comment(s): left leg cellulitis 2017. Past Anesthesia/Blood Transfusion Reactions: No Reported Reaction Past Psychological History: No Psychological Hx Reported Smoking Status: Current every day smoker Past Alcohol Use History: None Reported Past Drug Use History: None Reported <Kirstin Acosta - Last Filed: 01/19/19 12:56> General Exam Limitations: no limitations <Kirstin Acosta - Last Filed: 01/19/19 12:56> - General Exam Comments Initial Comments: GENERAL: Well-appearing, well-nourished and in no acute distress. HEAD: Atraumatic, normocephalic. EYES: Pupils equal round and reactive to light, extraocular movements intact, sclera anicteric, conjunctiva are normal. ENT: TMs normal, nares patent, oropharynx clear without exudates. Moist mucous membranes. NECK: Normal range of motion, supple without lymphadenopathy or JVD. LUNGS: Breath sounds clear to auscultation bilaterally and equal. Mild wheezes in the upper left lobe. No rales or rhonchi. HEART: Regular rate and rhythm without murmurs, rubs or gallops. No pain with palpation of the sternum. ABDOMEN: Soft, nontender, normoactive bowel sounds. No guarding, no rebound. No masses appreciated. : Deferred EXTREMITIES: Normal range of motion, no pitting or edema. No clubbing or cyanosis. NEUROLOGICAL: Cranial nerves II through XII grossly intact. Normal speech, normal gait. PSYCH: Normal mood, normal affect. SKIN: Warm, Dry, normal turgor, no rashes or lesions noted. (Kirstin Acosta) Course Vital Signs 01/19/19 01/19/19 01/19/19 05:59 07:03 07:30 Temperature 97.8 F Pulse Rate 69 68 70 Respiratory 20 18 20 Rate Blood Pressure 173/99 144/74 155/82 O2 Sat by Pulse 97 98 99 Oximetry 01/19/19 08:32 Temperature Pulse Rate 65 Respiratory 20 Rate Blood Pressure 98/62 O2 Sat by Pulse 99 Oximetry Chest Pain MDM <Amaury Reddy - Last Filed: 01/19/19 08:24> <Kirstin Acosta - Last Filed: 01/19/19 12:56> - Nabor MARTÍNEZt, personally saw and examined the patient. I have reviewed and agree with the PA findings, including all diagnostic interpretations and treatment plans as written unless otherwise stated. I was present for the negron portions of any procedures performed and the inclusive time noted for any critical care statement. Chest x-ray showed possible pneumonia started the patient on Rocephin because of this. Because of the patient's history and EKG changes I started the patient on heparin and I did a repeat EKG. I also call cardiology and Dr. Amaya cardiology came down immediately to see the patient and Dr. Amaya and he agreed to admit the patient. I wrote admitting orders I continued heparin Nitropaste and aspirin on the floor. EKG shows a marked sinus bradycardia at 45 bpm AZ interval is 206 QRS is 98 QT interval 46 QTC is 420. Recent EKG shows some biphasic T waves in 3 and aVF that were there earlier and some inverted T waves in V5 and V6 that are more pronounced now than before and also some ST segment depression in 1 and aVL. (Amaury Reddy) Patient is a 48-year-old male presenting with left-sided chest pain 3 hours. Patient denies radiation but states the pain has been consistent and was having trouble sleeping last night. Patient denies any significant past medical history. Patient is a poor historian and does not seem to have regular physicals. Patient's exam is within normal limits. CBC, CMP are within normal limits. Lactic acid 1.2. Troponin did come back high at 0.116. Chest x-ray shows some segmental changes in the left region and left lower lobe. Possible pneumonia over atelectasis. Patient was given aspirin and nitro. Case discussed with Dr. Reddy. (Kirstin Acosta) Critical Care Time Critical Care Time: Yes Total Critical Care Time: 30 <Amaury Reddy - Last Filed: 01/19/19 08:24> Disposition Time of Disposition: 08:26 <Amaury Reddy - Last Filed: 01/19/19 08:24> Is patient prescribed a controlled substance at d/c from ED?: No Decision Date: 01/19/19 Decision Time: 08:30 <Kirstin Acosta - Last Filed: 01/19/19 12:56> Clinical Impression: Non-STEMI (non-ST elevated myocardial infarction) Disposition: ADMITTED IP TO THIS HOSP Condition: Good
[2019-01-19 06:42] LABS: Basophils # (A) 0.1 k/uL (0-0.2); Basophils % (A) 1 %; Eosinophils # (A) 0.4 k/uL (0-0.7); Eosinophils % (A) 4 %; HCT 46.8 % (39.0-53.0); HGB 16.2 gm/dL (13.0-17.5); Lymphocytes # (A) 2.7 k/uL (1.0-4.8); Lymphocytes % (A) 27 %; MCH 28.9 pg (25.0-35.0); MCHC 34.6 g/dL (31.0-37.0); MCV 83.4 fL (80.0-100.0); Mean Platelet Volume 7.1; Monocytes # (A) 0.5 k/uL (0-1.0); Monocytes % (A) 4 %; Neutrophils # (A) 6.4 k/uL (1.3-7.7); Neutrophils % (A) 63 %; Platelet Count 205 k/uL (150-450); RBC 5.61 m/uL (4.30-5.90); RDW 12.7 % (11.5-15.5); WBC 10.1 k/uL (3.8-10.6)
[2019-01-19 06:47] LABS: ALT 22 U/L (21-72); AST 21 U/L (17-59); African American GFR (CKD) >90 (>60 ml/min/1.73 sqM); Albumin 3.8 g/dL (3.5-5.0); Alkaline Phosphatase 91 U/L (38-126); Anion Gap 9 mmol/L; Blood Urea Nitrogen 12 mg/dL (9-20); Calcium 8.8 mg/dL (8.4-10.2); Carbon Dioxide 23 mmol/L (22-30); Chloride 107 mmol/L (98-107); Glucose 125 mg/dL (74-99); Potassium 3.8 mmol/L (3.5-5.1); Sodium 139 mmol/L (137-145); Total Bilirubin 0.5 mg/dL (0.2-1.3); Total Protein 6.7 g/dL (6.3-8.2)
[2019-01-19 06:58] LABS: Partial Thromboplastin Time 28.8 sec (22.0-30.0); Prothrombin Time 10.3 sec (9.0-12.0)
--- NOTE | 2019-01-19 07:07 | XR ---
EXAM: XR Chest, 2 Views CLINICAL HISTORY: ITS.REASON XR Reason: Pain TECHNIQUE: Frontal and lateral views of the chest. COMPARISON: 12/15/2015 FINDINGS: Lungs: There is subsegmental changes in the left perihilar region and left lower lobe. Diminished lung volumes are similar to the previous exam. Pleural space: Unremarkable. No pneumothorax. Heart: Unremarkable. No cardiomegaly. Mediastinum: Unremarkable. The trachea is midline. Bones/joints: Unremarkable. IMPRESSION: There is subsegmental changes in the left perihilar region and left lower lobe. Favor subsegmental pneumonia over atelectasis. Please correlate clinically. No large pleural effusion or pneumothorax.
[2019-01-19] MEDS ORDERED: ASPIRIN 81 MG PO STA (07:29)
[2019-01-19] MEDS ORDERED: HEPARIN SODIUM,PORCINE 5,000 UNIT/ML 1 ML VIAL IV ONE (08:02)
[2019-01-19] MEDS ORDERED: cefTRIAXone IN SWFI 1,000 MG/10 ML SYRINGE IVP STA (08:03)
[2019-01-19] MEDS ORDERED: HEPARIN SOD,PORK IN 0.45% NACL 25,000 UNIT in 0.45% NACL 1 250ML.BAG IV SCH (08:15)
[2019-01-19] MEDS ORDERED: NITROGLYCERIN SL TABS 0.4 MG TAB SUBLINGUAL PRN ×3 (08:31→10:21)
[2019-01-19] MEDS ORDERED: ALPRAZolam 0.25 MG TAB PO PRN (08:32)
[2019-01-19] MEDS ORDERED: ASPIRIN 325 MG TAB PO STA (08:32)
[2019-01-19] MEDS ORDERED: ALPRAZolam 0.5 MG TAB PO PRN (08:32)
[2019-01-19] MEDS ORDERED: ATORVASTATIN 80 MG TAB PO STA (08:32)
--- NOTE | 2019-01-19 08:35 | P.CRDCN ---
History of Present Illness Consult date: 01/19/19 Chief complaint: Chest pain History of present illness: This is a 48-year-old gentleman with no significant past medical history but significant history of smoking presented to the emergency room complaining of chest discomfort. The chest discomfort started last night and continued throughout the night. He described the discomfort as a pressure on the left upper chest as a pressure on the chest with radiation to the left arm and it was associated with sweating and shortness of breath. No nausea or vomiting, dizziness or lightheadedness, or syncope. 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 The EKG showed sinus rhythm with ST changes in the inferolateral leads was not accessed on the previous EKG when he presented initiated in the emergency room. The first set of cardiac enzymes came in to be abnormal. Clinically the patient continues to have a chest discomfort. Because of that, I decided to pursue with a heart catheterization to rule out severe underlying coronary artery disease, giving the ongoing chest discomfort as well as the dynamic EKG changes which is concerning for severe coronary artery disease. Please note that the patient does have any significant family history of coronary artery disease and also he is a smoker. Past Medical History Past Medical History: No Reported History History of Any Multi-Drug Resistant Organisms: None Reported Past Surgical History: No Surgical Hx Reported Additional Past Surgical History / Comment(s): left leg cellulitis 2017. Past Anesthesia/Blood Transfusion Reactions: No Reported Reaction Past Psychological History: No Psychological Hx Reported Smoking Status: Current every day smoker Past Alcohol Use History: None Reported Past Drug Use History: None Reported Medications and Allergies Home Medications Medication Instructions Recorded Confirmed Type No Known Home Medications 01/19/19 01/19/19 History Allergies Allergy/AdvReac Type Severity Reaction Status Date / Time No Known Allergies Allergy Verified 01/19/19 07:24 Physical Exam Vitals: Vital Signs Temp Pulse Resp BP Pulse Ox 01/19/19 07:30 70 20 155/82 99 01/19/19 07:03 68 18 144/74 98 01/19/19 05:59 97.8 F 69 20 173/99 97 Intake and Output 01/18/19 01/19/19 01/19/19 22:59 06:59 14:59 Other: Weight 104.326 kg - Constitutional General appearance: no acute distress - Respiratory Respiratory: bilateral: CTA - Cardiovascular Rhythm: regular Heart sounds: normal: S1, S2 Abnormal Heart Sounds: systolic murmur Results 01/19/19 06:16 01/19/19 06:16 Cardiac Enzymes 01/19/19 01/19/19 Range/Units 06:16 06:16 AST 21 (17-59) U/L Troponin I 0.116 H* (0.000-0.034) ng/mL Coagulation 01/19/19 Range/Units 06:16 PT 10.3 (9.0-12.0) sec APTT 28.8 (22.0-30.0) sec CBC 01/19/19 Range/Units 06:16 WBC 10.1 (3.8-10.6) k/uL RBC 5.61 (4.30-5.90) m/uL Hgb 16.2 (13.0-17.5) gm/dL Hct 46.8 (39.0-53.0) % Plt Count 205 (150-450) k/uL Comprehensive Metabolic Panel 01/19/19 Range/Units 06:16 Sodium 139 (137-145) mmol/L Potassium 3.8 (3.5-5.1) mmol/L Chloride 107 (98-107) mmol/L Carbon Dioxide 23 (22-30) mmol/L BUN 12 (9-20) mg/dL Creatinine 0.93 (0.66-1.25) mg/dL Glucose 125 H (74-99) mg/dL Calcium 8.8 (8.4-10.2) mg/dL AST 21 (17-59) U/L ALT 22 (21-72) U/L Alkaline Phosphatase 91 (38-126) U/L Total Protein 6.7 (6.3-8.2) g/dL Albumin 3.8 (3.5-5.0) g/dL Current Medications Generic Name Dose Route Start Last Admin Trade Name Freq PRN Reason Stop Dose Admin Heparin Sodium/Sodium Chloride 250 mls @ 10 mls/hr 01/19/19 08:15 01/19/19 08:23 25,000 unit/ Sodium Chloride IV 9.585 units/kg/hr .Q24H BETHANY 10 mls/hr Administration Protocol 9.585 UNITS/KG/HR Intake and Output 01/18/19 01/19/19 01/19/19 22:59 06:59 14:59 Other: Weight 104.326 kg 01/19/19 06:16 01/19/19 06:16 Assessment and Plan Assessment: Assessment #1 acute non-ST deviation myocardial infarction #2 significant history of smoking #3 significant family history of CAD Plan #1 antiplatelet and high intensity statin #2 an echocardiogram was Doppler #3 proceed with coronary angiogram Thank you for allowing us participate in his care and we will continue following up with the patient
[2019-01-19 09:00] LABS: Basophils # (A) 0.1 k/uL (0-0.2); Basophils % (A) 1 %; Eosinophils # (A) 0.3 k/uL (0-0.7); Eosinophils % (A) 3 %; HCT 44.5 % (39.0-53.0); HGB 14.8 gm/dL (13.0-17.5); Lymphocytes # (A) 2.2 k/uL (1.0-4.8); Lymphocytes % (A) 25 %; MCH 28.1 pg (25.0-35.0); MCHC 33.4 g/dL (31.0-37.0); Mean Platelet Volume 7.3; Monocytes # (A) 0.4 k/uL (0-1.0); Monocytes % (A) 4 %; Neutrophils % (A) 66 %; Platelet Count 181 k/uL (150-450); RBC 5.29 m/uL (4.30-5.90); RDW 12.7 % (11.5-15.5); WBC 9.1 k/uL (3.8-10.6)
[2019-01-19] MEDS ORDERED: IV FLUID CONTINUATION 1,000 ML IV ONE (09:11)
[2019-01-19 09:15] LABS: ALT 25 U/L (21-72); AST 19 U/L (17-59); African American GFR (CKD) >90 (>60 ml/min/1.73 sqM); Albumin 3.4 g/dL (3.5-5.0); Alkaline Phosphatase 89 U/L (38-126); Anion Gap 8 mmol/L; Blood Urea Nitrogen 10 mg/dL (9-20); Calcium 7.9 mg/dL (8.4-10.2); Carbon Dioxide 23 mmol/L (22-30); Chloride 109 mmol/L (98-107); Glucose 125 mg/dL (74-99); Magnesium 1.9 mg/dL (1.6-2.3); Potassium 3.8 mmol/L (3.5-5.1); Sodium 140 mmol/L (137-145); Total Bilirubin 0.4 mg/dL (0.2-1.3); Total Protein 6.2 g/dL (6.3-8.2)
[2019-01-19 09:23] LABS: INR 1.1 (<1.2); Prothrombin Time 11.4 sec (9.0-12.0)
[2019-01-19] MEDS ORDERED: MIDAZOLAM (PF) 2 MG/2 ML VIAL IV ONE ×3 (09:29→09:31)
[2019-01-19] MEDS ORDERED: LIDOCAINE 1% INJ 10MG/ML (20 ML MDV) SQ ONE ×2 (09:29)
[2019-01-19] MEDS: VERAPAMIL SYRINGE (5 MG/10 ML) INTRAARTER ONE ×2 (09:30→10:15)
[2019-01-19 09:32] LABS: Partial Thromboplastin Time 162.2 sec (22.0-30.0)
[2019-01-19] MEDS ORDERED: CLOPIDOGREL 75 MG TAB PO ONE (09:46)
[2019-01-19] MEDS ORDERED: BIVALIRUDIN BOLUS 250 MG/50 ML IV ONE (09:47)
[2019-01-19] MEDS ORDERED: BIVALIRUDIN 250 MG in SODIUM CHLORIDE 0.9% 50 ML IV ONE (09:49)
[2019-01-19] MEDS ORDERED: ATROPINE SULFATE 0.1 MG/ML 10ML SYRINGE IVP ONE ×2 (09:51→09:53)
[2019-01-19] MEDS ORDERED: NITROGLYCERIN 1000MCG/10ML SYRINGE IV ONE (09:55)
[2019-01-19] MEDS: NITROGLYCERIN 1000MCG/10ML SYRINGE INTRACORON ONE ×2 (09:55→10:05)
[2019-01-19] MEDS ORDERED: IOPAMIDOL-370 125ML BTL INJ ONE (09:57)
[2019-01-19] MEDS ORDERED: SODIUM CHLORIDE 0.9% 1,000 ML IV ONE (10:09)
[2019-01-19] MEDS ORDERED: IOPAMIDOL-370 100ML BTL INJ ONE (10:17)
[2019-01-19] MEDS ORDERED: MAG HYDROX/AL HYDROX/SIMETH 30 ML CUP PO PRN (10:21)
[2019-01-19] MEDS ORDERED: ATROPINE SULFATE 0.1 MG/ML 10ML SYRINGE IV PRN (10:21)
[2019-01-19] MEDS ORDERED: RX INFO: IV CONTRAST WAS GIVEN 1 EACH MISC MISCELLANE PRN (10:21)
[2019-01-19] MEDS ORDERED: ZOLPIDEM 5 MG TAB PO PRN (10:21)
[2019-01-19] MEDS ORDERED: SODIUM CHLORIDE 0.9% 1,000 ML IV SCH (10:30)
--- NOTE | 2019-01-19 11:00 | CC ---
CARDIAC CATHETERIZATION REPORT CARDIAC CATHETERIZATION AND PERCUTANEOUS CORONARY INTERVENTION: DATE OF SERVICE: January 19, 2019 PERFORMING PHYSICIAN: Lazaro Sandy MD, supervisor building maintenance. PROCEDURE PERFORMED: 1. Selective right and left coronary angiogram. 2. Aspiration thrombectomy from the right coronary artery. 3. Successful stenting of the proximal right coronary artery using 3.0 x 18 Xience drug-eluting stent which was post dilated using 3.5 mm NC balloon with an excellent angiographic result. 4. Successful stenting of the mid right coronary artery using 4.0 x 12 mm Xience SALINA with an excellent angiographic result as well. 5. Left heart catheterization. INDICATION: This is a 48-year-old gentleman with history of smoking and significant family history of coronary artery disease, presented to the emergency room with chest discomfort and was ruled in for acute non ST elevation myocardial infarction. The decision was made towards a heart catheterization to rule out severe underlying coronary artery disease. APPROACH: Right radial artery. COMPLICATION: None. LEVEL OF SEDATION: Moderate with sedation length of 38 minutes. PROCEDURE DESCRIPTION: After obtaining an informed consent, the patient was brought to cardiac labor relations worker. The right radial artery was cannulated using micropuncture technique, the micropuncture wire passed easily then I placed a 6-S[place] sheath in the right radial artery and subsequently I gave the patient 2 mg of verapamil IA. I did not give any heparin because the patient received heparin in the emergency room just immediately before he was brought to the cardiac labor relations worker. I did selective right and left coronary angiogram using JR4 and JL3.5 catheters. After that I did intervene on the right coronary artery. Please see separate paragraph for that. After that I did left heart catheterization as well. The procedure was completed without any complication. SELECTIVE CORONARY ANGIOGRAM: 1. The right coronary artery is 100% occluded in the proximal portion. 2. The left main is angiographically normal. It bifurcates into left circumflex and left anterior descending artery. 3. The left circumflex is a large caliber vessel. It is a nondominant vessel. The proximal circumflex appeared to be normal and gives rise into first and second obtuse marginal branches both appear to have mild disease only. The circumflex distally in the mid and distal portion appeared to be angiographically normal. 4. The LAD: The proximal LAD appeared to be normal. It gives rise into a diagonal branch which seems to be normal. The mid LAD is normal and gives rise into second diagonal branch which seems to be normal and the LAD distally appeared to be normal as well. HEMODYNAMICS: The left ventricular end-diastolic pressure was 8 to 12 mmHg without significant gradient across the aortic valve. PCI OF THE RCA: Anticoagulation was initiated using Angiomax after I checked the ACT and came subtherapeutic. After that, I did engage the RCA using JR4 guide. I did wire the right coronary artery using a run-through wire. After that I did aspiration thrombectomy with extraction of white thrombus from the right coronary artery. After that I did balloon angioplasty using 2.5 x 15 mm balloon before I deployed in the proximal right coronary artery 3.0 x 18 mm Xience drug-eluting stent where the stent was positioned under fluoroscopy guidance and deployed under its nominal pressure. After that, the following angiogram showed the lesion distal to the stent seems to be hazy and concerning and because of that I decided to cover that lesion with a stent so I deployed 4.0 x 12 mm Xience drug-eluting stent with about 2 mm overlap between the first and second stents. The second stent was deployed under 12 atmospheres for 20 seconds. The area of overlap between the 2 stents was dilated using the stent balloon. The following angiogram showed excellent angiographic results and the procedure was completed without any complication. CONCLUSION: 1. Acute non ST elevation myocardial infarction. 2. Occluded right coronary artery in the proximal portion. 3. Successful stenting of the proximal and mid right coronary artery with an excellent angiographic results and reduction of stenosis from 100% to 0%. 4. Mild disease involving the left coronary system. POSTPROCEDURE MANAGEMENT: 1. Maximize medical treatment. 2. Risk factors modifications. 3. Follow up with the patient. MMODL / IJN: [id number] /
--- NOTE | 2019-01-19 13:19 | ECHOF ---
Referral Reason:chest pain MEASUREMENTS -------- HEIGHT: 170.2 cm WEIGHT: 104.3 kg BP: IVSd: 1.3 cm (0.6 - 1.1) LVIDd: 3.9 cm (3.9 - 5.3) LVPWd: 1.9 cm (0.6 - 1.1) IVSs: 2.0 cm LVIDs: 2.9 cm LVPWs: 2.2 cm RVIDd: 2.7 cm (< 3.3) Ao Diam: 2.5 cm (2.0 - 3.7) LA Diam: 2.9 cm (2.7 - 3.8) AV Cusp: 1.7 cm (1.5 - 2.6) EPSS: 1.8 cm MV E Nader: 0.70 m/s MV DecT: 179 ms MV A Nader: 0.80 m/s MV E/A Ratio: 0.88 AV maxP.45 mmHg AV meanP.57 mmHg AR PHT: 436 ms RAP: 5.00 mmHg RVSP: 10.90 mmHg MV EF SLOPE: 46.16 mm/s (70 - 150) MV EXCURSION: 11.80 mm (> 18.000) FINDINGS -------- Sinus rhythm. This was a technically difficult study with suboptimal views. The left ventricular size is normal. There is mild concentric left ventricular hypertrophy. Overa ll left ventricular systolic function is normal with, an EF between 55 - 60 %. The right ventricle is normal in size. The left atrial size is normal. The right atrial size is normal. Lumason used Interatrial and interventricular septum intact. Aortic valve is trileaflet and is mildly thickened. There is mild aortic stenosis present. Peak/m shruthi gradient across the Aortic Valve is 28.45mmHg / 16.57mmHg. AOV is possible Bicuspid. The mitral valve is normal. There is trace mitral regurgitation. Trace tricuspid regurgitation present. Right ventricular systolic pressure is normal at < 35 mmHg. There is no pulmonic regurgitation present. The aortic root size is normal. IVC Not well visulized. There is no pericardial effusion. CONCLUSIONS -------- 1. Sinus rhythm. 2. This was a technically difficult study with suboptimal views. 3. The left ventricular size is normal. 4. There is mild concentric left ventricular hypertrophy. 5. Overall left ventricular systolic function is normal with, an EF between 55 - 60 %. 6. The right ventricle is normal in size. 7. The left atrial size is normal. 8. The right atrial size is normal. 9. Lumason used 10. Interatrial and interventricular septum intact. 11. Aortic valve is trileaflet and is mildly thickened. 12. There is mild aortic stenosis present. 13. Peak/mean gradient across the Aortic Valve is 28.45mmHg / 16.57mmHg. 14. AOV is possible Bicuspid. 15. The mitral valve is normal. 16. There is trace mitral regurgitation. 17. Trace tricuspid regurgitation present. 18. Right ventricular systolic pressure is normal at < 35 mmHg. 19. There is no pulmonic regurgitation present. 20. The aortic root size is normal. 21. IVC Not well visulized. 22. There is no pericardial effusion. X RAY NURSE: Yvonne Rincon RDCS
[2019-01-19 14:40] VITALS: BMI 36.0
--- NOTE | 2019-01-19 19:33 | HP ---
HISTORY AND PHYSICAL CHIEF COMPLAINT: Chest pain. HISTORY OF PRESENT ILLNESS: This 48-year-old white male presented to the emergency room with chest pain which was somewhat atypical and in other ways typical. He had a slightly elevated troponin. He has been in fairly good health and has not had any problems with hypertension, heart disease, diabetes, etc. Right after he was evaluated, he was taken to the dairy and food laboratory assistant. Review of systems was not obtained. He was going to surgery. Past medical history, family history, and personal and social histories reveal that he has NO ALLERGIES and he is not taking any medications. He has been hospitalized in the past for treatment of cellulitis of the leg, but no other significant health problems. He does smoke and he drinks alcohol occasionally. He has heart disease in his family as well as diabetes. PHYSICAL EXAMINATION: Blood pressure 120/78, pulse of 80, respirations 16. He is afebrile. In general he appeared to be well developed, well nourished, and in no acute distress. He was overweight. Head, ears, eyes, nose, mouth and throat were normal. Chest was clear. Cardiac exam was normal. Abdomen was soft, nontender. Extremities were normal. Neurologically he was intact. He is admitted to the hospital with diagnoses: 1. Chest pain. 2. Family history of heart disease. PLAN: 1. Bed rest. 2. IV fluids. 3. Serial EKGs and enzymes. 4. Cardiology consult. He is going to the dairy and food laboratory assistant. EMIR / ASHLEE: [id number] /
[2019-01-20 07:22] LABS: African American GFR (CKD) >90 (>60 ml/min/1.73 sqM); Cholesterol 139 mg/dL (<200); HDL Cholesterol 26 mg/dL (40-60); LDL Cholesterol,Calculated 80 mg/dL (0-99); Triglycerides 164 mg/dL (<150)
[2019-01-20] MEDS: CLOPIDOGREL 75 MG TAB PO SCH (08:13)
[2019-01-20] MEDS ORDERED: ASPIRIN 325 MG TAB PO SCH (09:00)
[2019-01-20] MEDS: METOPROLOL SUCCINATE (ER) 25 MG TAB.ER.24H PO SCH (17:07)
--- NOTE | 2019-01-20 19:46 | PN ---
PROGRESS NOTE CHIEF COMPLAINT: Acute UT. HISTORY OF PRESENT ILLNESS: This gentleman is doing well. He feels well. He has not had any chest pain, shortness of breath, palpitations etc. PHYSICAL EXAM: Chest is clear and he has a loud grade 3/6 systolic murmur heard toward the apex. S4 cannot be detected. Abdomen is soft, nontender. Extremities: Normal. IMPRESSION: 1. Acute myocardial infarction. 2. Cardiac murmur. PLAN: Progress activity and he can be discharged when cleared by Cardiology. MMODL / IJN: [id number] /
[2019-01-20 20:21] LABS: Hemoglobin A1C 5.7 % (4.0-6.0)
[2019-01-20] MEDS ORDERED: ATORVASTATIN 80 MG TAB PO SCH (21:00)
[2019-01-21] MEDS: METOPROLOL SUCCINATE (ER) 25 MG TAB.ER.24H PO SCH (09:00)
[2019-01-21] MEDS: CLOPIDOGREL 75 MG TAB PO SCH (09:00)
[2019-01-21] MEDS ORDERED: ASPIRIN 81 MG PO SCH (09:00)
[2019-01-21 09:02] VITALS: BP 125/73; PULSE 74; RESP 16; TEMP 98
[2019-01-21] MEDS ORDERED: NICOTINE 21MG/24HR PATCH TRANSDERM STA (10:49)
--- NOTE | 2019-01-21 12:46 | P.PN ---
Subjective Progress Note Date: 01/21/19 This is a 48-year-old gentleman with no significant past medical history but significant history of smoking presented to the emergency room complaining of chest discomfort. The chest discomfort started last night and continued throughout the night. He described the discomfort as a pressure on the left u pper chest as a pressure on the chest with radiation to the left arm and it was associated with sweating and shortness of breath. No nausea or vomiting, dizziness or lightheadedness, or syncope. No history of coronary artery disease or congestive heart failure or cardiac arrhythmia and the patient never seen by any email marketing processor in the past. The EKG showed sinus rhythm with ST changes in the inferolateral leads was not accessed on the previous EKG when he presented initiated in the emergency room. The first set of cardiac enzymes came in to be abnormal. Clinically the patient continues to have a chest discomfort. was taken to the cardiac catheterization lab where he underwent successful stenting of the proximal right coronary artery and successful stenting of the mid right coronary artery. He was seen and examined this morning, denied any chest pain or difficulty in breathing. A cardiogram with Doppler study was performed which revealed mild aortic stenosis with possible bicuspid aortic valve. Objective - Vital Signs Vital signs: Vital Signs Temp 98 F 01/21/19 08:00 Pulse 74 01/21/19 08:00 Resp 16 01/21/19 08:00 BP 125/73 01/21/19 08:00 Pulse Ox 94 L 01/21/19 08:00 Intake & Output 01/20/19 01/21/19 01/21/19 18:59 06:59 18:59 Intake Total 940 236 Balance 940 236 Weight 103.9 kg Intake: Oral 940 236 Other: Voiding Method Urinal Toilet Toilet Urinal Urinal # Voids 1 1 - Exam PHYSICAL EXAMINATION: GENERAL: 88-year-old gentleman in no acute distress at the time of my examination HEENT: Head is atraumatic, normocephalic. Pupils equal, round. Sclera anicteric. Conjunctiva are clear. Mucous membranes of the mouth are moist. Neck is supple. There is no elevated jugular venous pressure. No carotid bruit is heard. HEART EXAMINATION: [Heart S1 S2 1 systolic ejection murmur is heard. CHEST EXAMINATION:[Lungs are clear to auscultation and precussion. No chest wall tenderness is noted on palpation or with deep breathing.] ABDOMEN: [Soft, nontender. Bowel sounds are heard. No organomegaly noted] EXTREMITIES:[2+ peripheral pulses with no evidence of peripheral edema and no calf tenderness noted] right radial site clean and dry, good distal pulse. NEUROLOGIC [atient is awake, alert and oriented X3. . - Labs CBC & Chem 7: 01/19/19 08:45 01/20/19 06:32 Labs: Microbiology - Last 24 Hours (Table) 01/19/19 08:10 Blood Culture - Preliminary Blood No Growth after 48 hours Assessment and Plan Plan: Assessment #1 acute non-ST deviation myocardial infarction, status post successful stenting of the RCA #2 significant history of smoking #3 significant family history of CAD 4 hyperlipidemia Plan Patient may be discharged home today from cardiology's perspective, we will make him a follow-up appointment to see Dr. Diaz in the office post discharge. We will also start the patient on a nicotine patch. He will be discharged home on dual antiplatelet therapy in the form of aspirin and Plavix, along with Lipitor, metoprolol, and soon as needed for chest pain. DNP note has been reviewed, I agree with a documented findings and plan of care. Patient was seen and examined.
--- NOTE | 2019-01-22 02:24 | DS ---
DISCHARGE SUMMARY CHIEF COMPLAINT: Chest pain. HISTORY OF PRESENT ILLNESS AND PHYSICAL EXAM: Details of this man's history and physical can be found in the initial workup. LABORATORY STUDIES: While he was in the hospital, he had laboratory studies, details of which can be found laboratory section of his chart. COURSE IN HOSPITAL: After admission, he was placed on bedrest, started intravenous fluids and taken to the hatchery laborer. He underwent stenting of 2 vessels. Postoperatively he did well. He was stable enough to go home on the . He will go home on light activity about the house and he will follow up with us in the next few days. His cardiac murmur will be addressed as well. FINAL DIAGNOSES: 1. Acute myocardial infarction. 2. Cardiac murmur. OPERATIONS: Cardiac cath. CONSULTATIONS: Cardiology. He is improved. MMODL / IJN: [id number] /
[2019-01-22] MEDS ORDERED: NICOTINE 21MG/24HR PATCH TRANSDERM SCH (09:00)
== END 2019-01-21 14:14 | disposition home or self-care (01) ==
LOC: EC 05:55 → 3SCARD 08:31 → INTOOBSV 08:31 → 3SCARD 11:54 → UNDODISIN 01-21 14:14
PROVIDERS: ADMIT Family Medicine; ATTEND Family Medicine
PROC: 4A023N7 Measurement of Cardiac Sampling and Pressure, Left Heart, Percutaneous Approach (ICD-10-PCS; 2019-01-19)
PROC: B2111ZZ Fluoroscopy of Multiple Coronary Arteries using Low Osmolar Contrast (ICD-10-PCS; 2019-01-19)
PROC: 027035Z Dilation of Coronary Artery, One Artery with Two Drug-eluting Intraluminal Devices, Percutaneous Approach (ICD-10-PCS; principal; 2019-01-19 08:56)
PROC: 02C03ZZ Extirpation of Matter from Coronary Artery, One Artery, Percutaneous Approach (ICD-10-PCS; 2019-01-19 08:56)
DX: I21.4 Non-ST elevation (NSTEMI) myocardial infarction (principal); E78.5 Hyperlipidemia, unspecified; F17.210 Nicotine dependence, cigarettes, uncomplicated; I25.10 Atherosclerotic heart disease of native coronary artery without angina pectoris; Z87.2 Personal history of diseases of the skin and subcutaneous tissue; Z82.49 Family history of ischemic heart disease and other diseases of the circulatory system; Z83.3 Family history of diabetes mellitus; R01.1 Cardiac murmur, unspecified; I35.0 Nonrheumatic aortic (valve) stenosis
CPT/HCPCS: 96376; 96361; 96374; 96375; 99291; 36415; 93005; 93458; 85347; 80061; 80053; 82565; 83605; 83735; 84484; 85025; 85610; 85730; 87040; 83036; 71046; G0378 ×3; C8929; C9600; C1887; C1725 ×2; C1769 ×3; C1894 ×2; C1874; J1644 ×2; J2001; J0461; J0696; J0583; Q9967 ×2; J2250; 93306

== ENCOUNTER 2019-05-09 11:39 | Inpatient (IN) | payer OTHER ==
--- NOTE | 2019-05-09 12:01 | ED ---
General Adult HPI - General Chief complaint: Skin/Abscess/Foreign Body Stated complaint: Cellulitits Time Seen by Provider: 05/09/19 11:48 Source: patient, RN notes reviewed Mode of arrival: ambulatory Limitations: no limitations - History of Present Illness Initial comments: Patient is a pleasant 48-year-old male presenting to the emergency Department with complaints of cellulitis left leg. Patient has had similar episodes 3-4 times previously. Patient states symptoms started this time 4-5 days ago. Patient was started on antibiotics 2 days ago. Patient saw his doctor 2 days ago as well as yesterday. Symptoms continue to worsen. Patient had subjective fever. She did not take his temperature. No other area of involvement. No calf pain or swelling. - Related Data Previous Rx's Medication Instructions Recorded Aspirin 81 mg PO DAILY #30 chew 01/21/19 Atorvastatin [Lipitor] 80 mg PO HS #30 tab 01/21/19 Clopidogrel [Plavix] 75 mg PO DAILY #30 tab 01/21/19 Metoprolol Succinate (ER) [Toprol 25 mg PO DAILY #30 tab.er.24h 01/21/19 XL] Nicotine 21Mg/24Hr Patch [Habitrol] 1 patch TRANSDERM DAILY #30 patch 01/21/19 Nitroglycerin Sl Tabs [Nitrostat] 0.4 mg SUBLINGUAL Q5M PRN #25 tab 01/21/19 Allergies Allergy/AdvReac Type Severity Reaction Status Date / Time No Known Allergies Allergy Verified 05/09/19 11:46 Review of Systems ROS Statement: Those systems with pertinent positive or pertinent negative responses have been documented in the HPI. ROS Other: All systems not noted in ROS Statement are negative. Constitutional: Reports: as per HPI, fever Eyes: Denies: eye pain ENT: Denies: ear pain Respiratory: Denies: cough Cardiovascular: Denies: chest pain Endocrine: Denies: fatigue Gastrointestinal: Denies: abdominal pain Genitourinary: Denies: dysuria Musculoskeletal: Denies: back pain Skin: Reports: as per HPI, rash Past Medical History Past Medical History: No Reported History Additional Past Medical History / Comment(s): Bronchitis, gastric ulcer as a teen, 2017 L leg cellulitis, chronic low back pain, vertigo-thought d/t prescription bifocals. History of Any Multi-Drug Resistant Organisms: None Reported Past Surgical History: No Surgical Hx Reported, Heart Catheterization With Stent Additional Past Surgical History / Comment(s): Egd, colonoscopy Past Anesthesia/Blood Transfusion Reactions: No Reported Reaction Past Psychological History: No Psychological Hx Reported Smoking Status: Current every day smoker Past Alcohol Use History: None Reported Past Drug Use History: None Reported - Past Family History Father Family Medical History: Coronary Artery Disease (CAD), Myocardial Infarction (NM) Additional Family Medical History / Comment(s): Father of NM at the age of 71 yrs. Sister(s) Additional Family Medical History / Comment(s): Sister has a heart murmur. General Exam Limitations: no limitations General appearance: alert, in no apparent distress Head exam: Present: atraumatic Eye exam: Present: normal appearance, PERRL ENT exam: Present: normal oropharynx Neck exam: Present: normal inspection Respiratory exam: Present: normal lung sounds bilaterally Cardiovascular Exam: Present: regular rate, normal rhythm Expanded Peripheral pulses: 2+: Dorsalis Pedis (L) GI/Abdominal exam: Present: soft. Absent: tenderness Extremities exam: Absent: calf tenderness Neurological exam: Present: alert Psychiatric exam: Present: normal affect, normal mood Skin exam: Present: erythema (Left anterior bland cellulitis from the ankle to the knee. There is also medial involvement on the lower section.) Course Vital Signs 05/09/19 05/09/19 11:43 12:19 Temperature 98.2 F Pulse Rate 92 81 Respiratory 18 16 Rate Blood Pressure 137/77 111/75 O2 Sat by Pulse 95 95 Oximetry Medical Decision Making - Medical Decision Making Patient reevaluated. Patient and family updated. Case discussed in detail with Dr. Arnold who will admit his patient. He recommends IV Kefzol every 8 hours. No consults at this time. - Lab Data Result diagrams: 05/09/19 12:20 05/09/19 12:20 Lab Results 05/09/19 05/09/19 05/09/19 Range/Units 12:20 12:20 12:20 WBC 8.5 (3.8-10.6) k/uL RBC 5.23 (4.30-5.90) m/uL Hgb 15.5 (13.0-17.5) gm/dL Hct 44.3 (39.0-53.0) % MCV 84.7 (80.0-100.0) fL MCH 29.7 (25.0-35.0) pg MCHC 35.1 (31.0-37.0) g/dL RDW 12.7 (11.5-15.5) % Plt Count 175 (150-450) k/uL Neutrophils % 63 % Lymphocytes % 23 % Monocytes % 7 % Eosinophils % 3 % Basophils % 2 % Neutrophils # 5.3 (1.3-7.7) k/uL Lymphocytes # 1.9 (1.0-4.8) k/uL Monocytes # 0.6 (0-1.0) k/uL Eosinophils # 0.3 (0-0.7) k/uL Basophils # 0.2 (0-0.2) k/uL Sodium 138 (137-145) mmol/L Potassium 4.0 (3.5-5.1) mmol/L Chloride 107 (98-107) mmol/L Carbon Dioxide 20 L (22-30) mmol/L Anion Gap 11 mmol/L BUN 17 (9-20) mg/dL Creatinine 1.05 (0.66-1.25) mg/dL Est GFR (CKD-EPI)AfAm >90 (>60 ml/min/1.73 sqM) Est GFR (CKD-EPI)NonAf 84 (>60 ml/min/1.73 sqM) Glucose 137 H (74-99) mg/dL Plasma Lactic Acid Milind 1.1 (0.7-2.0) mmol/L Calcium 8.6 (8.4-10.2) mg/dL Total Bilirubin 0.9 (0.2-1.3) mg/dL AST 31 (17-59) U/L ALT 42 (21-72) U/L Alkaline Phosphatase 82 (38-126) U/L Total Protein 6.6 (6.3-8.2) g/dL Albumin 3.6 (3.5-5.0) g/dL - Radiology Data Radiology results: image reviewed (X-ray left tib-fib shows some soft tissue swelling and subcutaneous edema consistent with cellulitis.) Disposition Clinical Impression: Left leg cellulitis Disposition: ADMITTED IP TO THIS HOSP Is patient prescribed a controlled substance at d/c from ED?: No Referrals: Shan Arnold MD [Primary Care Provider] - 1-2 days Decision Time: 13:05
--- NOTE | 2019-05-09 12:27 | XR ---
EXAMINATION TYPE: XR tibia fibula 2 views LT DATE OF EXAM: 05/09/2019 COMPARISON: NONE HISTORY: 48-year-old male left lower leg cellulitis, pain TECHNIQUE: 2 views there is FINDINGS: There is soft tissue swelling and reticulations within the subcutaneous adipose of the mid to distal left leg. No underlying acute fracture. No periostitis or osteolysis. IMPRESSION: Soft tissue swelling and subcutaneous edema along the mid to distal left leg suggest cellulitis. No u nderlying acute osseous abnormality seen. No retained radiopaque foreign body material.
[2019-05-09 12:33] LABS: Basophils # (A) 0.2 k/uL (0-0.2); Basophils % (A) 2 %; Eosinophils # (A) 0.3 k/uL (0-0.7); Eosinophils % (A) 3 %; HCT 44.3 % (39.0-53.0); HGB 15.5 gm/dL (13.0-17.5); Lymphocytes # (A) 1.9 k/uL (1.0-4.8); Lymphocytes % (A) 23 %; MCH 29.7 pg (25.0-35.0); MCHC 35.1 g/dL (31.0-37.0); MCV 84.7 fL (80.0-100.0); Mean Platelet Volume 6.4; Monocytes # (A) 0.6 k/uL (0-1.0); Monocytes % (A) 7 %; Neutrophils # (A) 5.3 k/uL (1.3-7.7); Neutrophils % (A) 63 %; Platelet Count 175 k/uL (150-450); RBC 5.23 m/uL (4.30-5.90); RDW 12.7 % (11.5-15.5); WBC 8.5 k/uL (3.8-10.6)
[2019-05-09 12:41] LABS: ALT 42 U/L (21-72); AST 31 U/L (17-59); African American GFR (CKD) >90 (>60 ml/min/1.73 sqM); Albumin 3.6 g/dL (3.5-5.0); Alkaline Phosphatase 82 U/L (38-126); Anion Gap 11 mmol/L; Blood Urea Nitrogen 17 mg/dL (9-20); Calcium 8.6 mg/dL (8.4-10.2); Carbon Dioxide 20 mmol/L (22-30); Chloride 107 mmol/L (98-107); Glucose 137 mg/dL (74-99); Non-African American GFR(CKD) 84 (>60 ml/min/1.73 sqM); Sodium 138 mmol/L (137-145); Total Bilirubin 0.9 mg/dL (0.2-1.3); Total Protein 6.6 g/dL (6.3-8.2)
[2019-05-09] MEDS ORDERED: ACETAMINOPHEN TAB 325 MG TAB PO PRN (13:06)
[2019-05-09] MEDS ORDERED: NALOXONE 0.4 MG/ML 1 ML VIAL IV PRN (13:06)
[2019-05-09] MEDS: SODIUM CHLORIDE 0.9% 1,000 ML IV SCH ×2 (13:22→22:44)
[2019-05-09 20:52] LABS: Appearance,Urine Clear (Clear); Bilirubin,Urine Negative (Negative); Blood,Urine Negative (Negative); Color,Urine Yellow; Glucose,Urine (UA) Negative (Negative); Hyaline Casts,Urine 1 /lpf (0-2); Ketones,Urine Trace (Negative); Leukocyte Esterase,Urine Negative (Negative); Mucus,Urine Few /hpf; Nitrite,Urine Negative (Negative); PH, Urine 5.5 (5.0-8.0); Protein,Urine 1+ (Negative); RBC,Urine 1 /hpf (0-5); Specific Gravity,Urine 1.036 (1.001-1.035); Squamous Epithelial Cell,Urine <1 /hpf (0-4); Urobilinogen,Urine <2.0 mg/dL (<2.0)
[2019-05-10] MEDS: SODIUM CHLORIDE 0.9% 1,000 ML IV SCH ×3 (06:24→15:04)
[2019-05-10 10:09] LABS: Basophils % (A) 1 %; Eosinophils # (A) 0.2 k/uL (0-0.7); Eosinophils % (A) 3 %; HCT 38.6 % (39.0-53.0); Lymphocytes # (A) 1.4 k/uL (1.0-4.8); Lymphocytes % (A) 21 %; MCHC 33.8 g/dL (31.0-37.0); MCV 85.8 fL (80.0-100.0); Mean Platelet Volume 6.8; Monocytes # (A) 0.5 k/uL (0-1.0); Monocytes % (A) 7 %; Neutrophils # (A) 4.4 k/uL (1.3-7.7); Neutrophils % (A) 65 %; Platelet Count 143 k/uL (150-450); RDW 12.7 % (11.5-15.5); WBC 6.7 k/uL (3.8-10.6)
[2019-05-10] MEDS ORDERED: NITROGLYCERIN SL TABS 0.4 MG TAB SUBLINGUAL PRN (11:30)
--- NOTE | 2019-05-10 13:56 | HP ---
HISTORY AND PHYSICAL CHIEF COMPLAINT: Progressive cellulitis of the left lower extremity. HISTORY OF PRESENT ILLNESS: This 48-year-old white male has been in the hospital in the past for cellulitis left leg. He came to the office last week with a small amount of redness in the left bland. He was started on a cephalosporin and 2 to 3 days later came back and it was not any better. He had also then developed an area of redness, tenderness and induration on the posterior right lower leg. He has had no chills or fever. He was switched to clindamycin, but it grew worse over the weekend and he came to the emergency room. REVIEW OF SYSTEMS: He has had no chills, chest pain, shortness of breath, cough, hemoptysis, murmurs, rheumatic fever, abdominal pain, nausea, vomiting, hematemesis, melena, hematochezia, colitis, diverticulosis, diverticulitis, hemorrhoids, jaundice, hepatitis, cirrhosis, hematuria, frequency, urgency, dysuria, etc. PAST MEDICAL HISTORY, FAMILY HISTORY, PERSONAL AND SOCIAL HISTORIES Reveal he is not allergic to any medication. He is on metoprolol succinate 50 mg once a day, lisinopril 5 mg once a day, Nitrostat p.r.n., nicotine patch, clopidogrel 75 mg once a day, atorvastatin 80 mg once a day and aspirin 81 mg a day. The remainder of his history is significant in that he still continues to smoke. He drinks occasionally. PHYSICAL EXAMINATION: Blood pressure 130/70, pulse 64, respirations 16. He is afebrile. In general he appeared to be slightly overweight, in no acute distress. Skin color is normal, skin is warm, dry. Lymph nodes are not enlarged. Head, ears, eyes, nose, mouth, and throat were normal, neck veins not distended. Thyroid is not enlarged. Chest is clear and cardiac exam is normal. The abdomen is soft, nontender. The left lower leg was inflamed, tender and slightly edematous both in the bland and the calf. Pulses were good. Foot was normal with good pulses. No sign of infection. Neurologically he is intact. IMPRESSION: Cellulitis of the left lower leg. PLAN: 1. Bed rest. 2. Elevation. 3. IV fluids and antibiotics. MMODL / IJN: [id number] /
--- NOTE | 2019-05-10 13:59 | PN ---
PROGRESS NOTE DATE OF SERVICE: 05/10/2019 CHIEF COMPLAINT: Cellulitis left leg. HISTORY OF PRESENT ILLNESS: This gentleman does not feel like the leg is doing any better since he has come in. He still has redness and tenderness in the anterior left bland as well as posterior right lower leg. Pulses were good in the feet. Neurologically he is intact. IMPRESSION: Cellulitis of the left lower leg. PLAN: Continue with IV fluids and antibiotics and elevation. MMODL / IJN: [id number] /
[2019-05-10 22:28] VITALS: RESP 20
[2019-05-11 05:55] VITALS: BP 112/62; PULSE 75; TEMP 98.8
[2019-05-11] MEDS: SODIUM CHLORIDE 0.9% 1,000 ML IV SCH (06:58)
[2019-05-11] MEDS ORDERED: ASPIRIN 81 MG PO SCH (09:00)
[2019-05-11] MEDS ORDERED: CLOPIDOGREL 75 MG TAB PO SCH (09:00)
[2019-05-11] MEDS ORDERED: METOPROLOL SUCCINATE (ER) 25 MG TAB.ER.24H PO SCH (09:00)
[2019-05-11] MEDS ORDERED: LISINOPRIL 5 MG TAB PO SCH (09:00)
--- NOTE | 2019-05-11 12:27 | DS ---
DISCHARGE SUMMARY CHIEF COMPLAINT: Cellulitis of the left leg. HISTORY OF PRESENT ILLNESS AND PHYSICAL EXAM: Details of this man's history and physical can be found in the initial workup. LABORATORY STUDIES: While he was in a hospital he had laboratory studies, details of which can be found in the laboratory section of his chart. COURSE IN HOSPITAL: After admission he was placed on bedrest, started on intravenous fluids and IV antibiotics. Cellulitis improved . It was felt that he could probably benefit from a few more days in the hospital on IV antibiotics, but he had to leave and he was discharged home on Keflex 500 mg q.i.d. and he will come into the office in one day. FINAL DIAGNOSIS: Cellulitis of the left lower extremity. OPERATIONS: None. CONSULTATION: None. He is improved. MMTIAL / ASHLEE: [id number] /
[2019-05-11] MEDS ORDERED: CEPHALEXIN 500 MG CAP PO SCH (13:00)
== END 2019-05-11 11:28 | disposition home or self-care (01) | DRG 603 ==
LOC: EC 11:39 → 4MS4W 13:06 → OBSVTOIN 05-11 08:36
PROVIDERS: ADMIT Family Medicine; ATTEND Family Medicine
DX: L03.116 Cellulitis of left lower limb (principal); Z79.02 Long term (current) use of antithrombotics/antiplatelets; F17.200 Nicotine dependence, unspecified, uncomplicated; Z79.82 Long term (current) use of aspirin; Z82.49 Family history of ischemic heart disease and other diseases of the circulatory system; Z87.11 Personal history of peptic ulcer disease; Z95.5 Presence of coronary angioplasty implant and graft; Z79.899 Other long term (current) drug therapy
CPT/HCPCS: 36415; 80053; 81001; 83605; 85025; 87040; 99284

== ENCOUNTER 2021-03-26 19:59 | Inpatient (IN) | payer OTHER ==
[2021-03-26] MEDS ORDERED: MORPHINE SULFATE 4 MG/ML SYRINGE IV STA (21:27)
[2021-03-26] MEDS ORDERED: ASPIRIN 81 MG PO STA (21:27)
[2021-03-26 21:46] LABS: Basophils # (A) 0.1 k/uL (0-0.2); Basophils % (A) 1 %; Eosinophils # (A) 0.5 k/uL (0-0.7); Eosinophils % (A) 4 %; HCT 49.5 % (39.0-53.0); HGB 16.7 gm/dL (13.0-17.5); Lymphocytes # (A) 2.6 k/uL (1.0-4.8); Lymphocytes % (A) 22 %; MCH 29.2 pg (25.0-35.0); MCHC 33.7 g/dL (31.0-37.0); MCV 86.8 fL (80.0-100.0); Mean Platelet Volume 7.3; Monocytes # (A) 0.6 k/uL (0-1.0); Monocytes % (A) 5 %; Neutrophils % (A) 67 %; Platelet Count 201 k/uL (150-450); RBC 5.71 m/uL (4.30-5.90); RDW 12.9 % (11.5-15.5); WBC 11.9 k/uL (3.8-10.6)
[2021-03-26 22:02] LABS: INR 0.9 (<1.2); Partial Thromboplastin Time 26.5 sec (22.0-30.0); Prothrombin Time 9.8 sec (9.0-12.0)
[2021-03-26 22:17] LABS: ALT 27 U/L (4-49); AST 26 U/L (17-59); African American GFR (CKD) >90 (>60 ml/min/1.73 sqM); Albumin 3.9 g/dL (3.5-5.0); Alkaline Phosphatase 108 U/L (38-126); Anion Gap 8 mmol/L; Blood Urea Nitrogen 13 mg/dL (9-20); Carbon Dioxide 21 mmol/L (22-30); Chloride 106 mmol/L (98-107); Glucose 135 mg/dL (74-99); Magnesium 2.2 mg/dL (1.6-2.3); Non-African American GFR(CKD) >90 (>60 ml/min/1.73 sqM); Potassium 4.1 mmol/L (3.5-5.1); Sodium 135 mmol/L (137-145); Total Bilirubin 0.5 mg/dL (0.2-1.3); Total Protein 6.7 g/dL (6.3-8.2)
--- NOTE | 2021-03-26 22:22 | XR ---
EXAMINATION TYPE: XR chest 2V DATE OF EXAM: 03/26/2021 COMPARISON: NONE TECHNIQUE: PA and lateral views submitted. HISTORY: Chest pain. FINDINGS: The lungs are clear and there is no pneumothorax, pleural effusion, or focal pneumonia. Interstitia l pattern noted. Heart size normal. IMPRESSION: 1. Correlate for interstitial pneumonia. Venous congestion not excluded..
--- NOTE | 2021-03-26 23:09 | ED ---
General Adult HPI - General Chief complaint: Chest Pain Stated complaint: Chest Pain Time Seen by Provider: 03/26/21 21:14 Source: patient, RN notes reviewed, old records reviewed Mode of arrival: ambulatory Limitations: no limitations - History of Present Illness Initial comments: Patient was evaluated when he was placed in a room.Patient is a 50-year-old male with past medical history remarkable for multiple rights coronary artery cardiac stents who presents emergency Department complaining of a pleuritic left-sided axillary and back pain that has been ongoing for one day. Describes the pain as achy/stretching. Endorses very mild dyspnea associated this this. Patient does have a history of COPD as well as tobacco use. Denies any fevers, chills, cough, sick contacts. He is vaccinated for COVID-19. Denies any history of blood clots. He is compliant with his medications. Denies any abdominal pain, nausea, vomiting. States that the pain is somewhat reproducible on movement of his left arm, however is not reproducible on palpation. He presents tonight for further evaluation. He is on aspirin and Plavix at home. No other blood th inners. - Related Data Home Medications Medication Instructions Recorded Confirmed lisinopriL [Prinivil] 5 mg PO DAILY 05/09/19 03/26/21 Metoprolol Succinate [Toprol XL] 50 mg PO DAILY 03/26/21 03/26/21 Previous Rx's Medication Instructions Recorded Aspirin 81 mg PO DAILY #30 chew 01/21/19 Atorvastatin [Lipitor] 80 mg PO HS #30 tab 01/21/19 Clopidogrel [Plavix] 75 mg PO DAILY #30 tab 01/21/19 Nitroglycerin Sl Tabs [Nitrostat] 0.4 mg SUBLINGUAL Q5M PRN #25 tab 01/21/19 Allergies Allergy/AdvReac Type Severity Reaction Status Date / Time No Known Allergies Allergy Verified 03/26/21 21:49 Review of Systems ROS Statement: Those systems with pertinent positive or pertinent negative responses have been documented in the HPI. Review of Systems: CONST: Denies fever EYES: Denies blurry vision ENT: Denies nasal congestion C/V: Endorses chest pain, axillary pain, left shoulder pain RESP: Endorses mild dyspnea GI: Denies abdominal pain : Denies dysuria SKIN: Denies rash. MSK: Denies joint pain. NEURO: Denies headache ROS Other: All systems not noted in ROS Statement are negative. Past Medical History Past Medical History: No Reported History Additional Past Medical History / Comment(s): Bronchitis, gastric ulcer as a teen, 2016 L leg cellulitis, chronic low back pain, vertigo History of Any Multi-Drug Resistant Organisms: None Reported Past Surgical History: Heart Catheterization With Stent Additional Past Surgical History / Comment(s): Egd, colonoscopy Past Anesthesia/Blood Transfusion Reactions: No Reported Reaction Date of Last Stent Placement:: February of 2019 Past Psychological History: No Psychological Hx Reported Smoking Status: Current every day smoker Past Alcohol Use History: None Reported Past Drug Use History: None Reported - Past Family History Father Family Medical History: Coronary Artery Disease (CAD), Myocardial Infarction (DE) Additional Family Medical History / Comment(s): Father of [place] at the age of 71 yrs. Sister(s) Additional Family Medical History / Comment(s): Sister has a heart murmur. General Exam - General Exam Comments Initial Comments: General: Appears in no acute distress. HEAD: Normal with no signs of head trauma. EYES: PERRLA, EOMI, conjunctiva normal, no discharge. ENT: Hearing grossly intact, normal oropharynx. RESPIRATORY: Clear breath sounds bilaterally. No wheezes, rales, or rhonchi. C/V: Regular rate and rhythm. S1 and S2 auscultated, no edema, peripheral pulses 2+ and intact throughout. Patient's axillary, scapular pain is no nreproducible on palpation. ABD: Abd is soft, nontender, nondistended EXT: Normal range of motion, no obvious deformity SKIN: No rashes or lesions observed on exposed skin. NEURO: Alert and oriented 4. No focal deficits. Limitations: no limitations Course Vital Signs 03/26/21 03/26/21 03/26/21 20:09 21:43 22:20 Temperature 97.5 F L Pulse Rate 84 81 74 Respiratory 22 18 18 Rate Blood Pressure 112/69 119/81 102/69 O2 Sat by Pulse 92 L 96 96 Oximetry Medical Decision Making - Medical Decision Making Based on the patient's presentation and physical exam, is a 50-year-old male with a history of CAD multiple cardiac stents presenting with pleuritic left axillary and shoulder pain. He states he had mild dyspnea and symptoms started this morning. No history of blood clots. However I am concerned based on his symptoms for possible pulmonary embolism. Therefore we will obtain a d-dimer in addition to screening cardiac labs including troponin, EKG, chest x-ray. He will be connected to continuous cardiac monitoring. He was given an aspirin as well as morphine for analgesia. Patient was in agreement with this plan. Patient's EKG shows no signs of acute ischemia or acute changes compared to prior EKGs. Patient's chest x-ray reveals possible interstitial disease, however he has no cough, fevers. Laboratory studies were remarkable for mild leukocytosis of 11.9. Patient's d-dimer is elevated to 0.88. Troponin is indeterminate at 0.017, which does appear to be his baseline based on prior values. I spoke with the patient and explained To him the results of his imaging and laboratory studies. He states that his symptoms are somewhat improved, now his pain is down from a 5 to a 1. I did recommend that due to the elevated d-dimer we obtain a CT angiogram to rule the possibility of pulmonary embolus and he was in agreement this plan. CT angiogram was remarkable for findings concerning for small left upper lobe range pulmonary embolism. There is also COPD with suspected venous congestion or pneumonitis. There is also pulmonary nodule in the right upper lobe. I discussed the results of the imaging with the patient and explained that due to the area suspicious for pulmonary embolism aligning with the area where he is having pleuritic chest pain I did recommend that we treat him for his pulmonary embolus and with a heparin drip and admitted him to the hospital for further evaluation. He was in agreement with this plan. We will trend his troponins of the initial was indeterminate. I will order a cardiac echo. Cardiology as well as pulmonology (Dr. Ley) will be consulted for evaluation tomorrow as the patient is otherwise hemodynamically stable. He was started on a heparin drip. I spoke with the admitting physician under Dr. Arnold who was in agreement with this plan. Patient was therefore admitted in serious condition to telemetry bed. - Lab Data Result diagrams: 03/26/21 21:34 03/26/21 21:34 Lab Results 03/26/21 03/26/21 03/26/21 Range/Units 21:34 21:34 21:34 WBC 11.9 H (3.8-10.6) k/uL RBC 5.71 (4.30-5.90) m/uL Hgb 16.7 (13.0-17.5) gm/dL Hct 49.5 (39.0-53.0) % MCV 86.8 (80.0-100.0) fL MCH 29.2 (25.0-35.0) pg MCHC 33.7 (31.0-37.0) g/dL RDW 12.9 (11.5-15.5) % Plt Count 201 (150-450) k/uL MPV 7.3 Neutrophils % 67 % Lymphocytes % 22 % Monocytes % 5 % Eosinophils % 4 % Basophils % 1 % Neutrophils # 8.0 H (1.3-7.7) k/uL Lymphocytes # 2.6 (1.0-4.8) k/uL Monocytes # 0.6 (0-1.0) k/uL Eosinophils # 0.5 (0-0.7) k/uL Basophils # 0.1 (0-0.2) k/uL PT 9.8 (9.0-12.0) sec INR 0.9 (<1.2) APTT 26.5 (22.0-30.0) sec D-Dimer 0.88 H (<0.60) mg/L FEU Sodium 135 L (137-145) mmol/L Potassium 4.1 (3.5-5.1) mmol/L Chloride 106 (98-107) mmol/L Carbon Dioxide 21 L (22-30) mmol/L Anion Gap 8 mmol/L BUN 13 (9-20) mg/dL Creatinine 0.96 (0.66-1.25) mg/dL Est GFR (CKD-EPI)AfAm >90 (>60 ml/min/1.73 sqM) Est GFR (CKD-EPI)NonAf >90 (>60 ml/min/1.73 sqM) Glucose 135 H (74-99) mg/dL Calcium 9.0 (8.4-10.2) mg/dL Magnesium 2.2 (1.6-2.3) mg/dL Total Bilirubin 0.5 (0.2-1.3) mg/dL AST 26 (17-59) U/L ALT 27 (4-49) U/L Alkaline Phosphatase 108 (38-126) U/L Troponin I (0.000-0.034) ng/mL Total Protein 6.7 (6.3-8.2) g/dL Albumin 3.9 (3.5-5.0) g/dL 03/26/21 Range/Units 21:34 WBC (3.8-10.6) k/uL RBC (4.30-5.90) m/uL Hgb (13.0-17.5) gm/dL Hct (39.0-53.0) % MCV (80.0-100.0) fL MCH (25.0-35.0) pg MCHC (31.0-37.0) g/dL RDW (11.5-15.5) % Plt Count (150-450) k/uL MPV Neutrophils % % Lymphocytes % % Monocytes % % Eosinophils % % Basophils % % Neutrophils # (1.3-7.7) k/uL Lymphocytes # (1.0-4.8) k/uL Monocytes # (0-1.0) k/uL Eosinophils # (0-0.7) k/uL Basophils # (0-0.2) k/uL PT (9.0-12.0) sec INR (<1.2) APTT (22.0-30.0) sec D-Dimer (<0.60) mg/L FEU Sodium (137-145) mmol/L Potassium (3.5-5.1) mmol/L Chloride (98-107) mmol/L Carbon Dioxide (22-30) mmol/L Anion Gap mmol/L BUN (9-20) mg/dL Creatinine (0.66-1.25) mg/dL Est GFR (CKD-EPI)AfAm (>60 ml/min/1.73 sqM) Est GFR (CKD-EPI)NonAf (>60 ml/min/1.73 sqM) Glucose (74-99) mg/dL Calcium (8.4-10.2) mg/dL Magnesium (1.6-2.3) mg/dL Total Bilirubin (0.2-1.3) mg/dL AST (17-59) U/L ALT (4-49) U/L Alkaline Phosphatase (38-126) U/L Troponin I 0.017 (0.000-0.034) ng/mL Total Protein (6.3-8.2) g/dL Albumin (3.5-5.0) g/dL - EKG Data -: EKG Interpreted by Me EKG Comments: 12-lead Electrocardiogram Interpretation Note EKG was reviewed and interpreted by myself. 12-lead ECG performed at 2018 is interpreted by me as revealing normal sinus rhythm at a rate of 84 beats per minute. [place] is normal. IA interval is 164 ms, QRS duration is 92 ms, QTc is 449 ms.. There were no ST or T wave abnormalities to suggest myocardial ischemia or injury. R wave progression across the precordium was satisfactory. By my interpretation this EKG is non-diagnostic for acute ischemia. Disposition Clinical Impression: Pulmonary embolism, History of coronary artery disease Disposition: ADMITTED IP TO THIS HOSP Condition: Serious
--- NOTE | 2021-03-26 23:10 | CT ---
EXAMINATION TYPE: CT chest angio for PE DATE OF EXAM: 03/26/2021 COMPARISON: None HISTORY: elevated d-dimer CT DLP: 637.3 mGycm Automated exposure control for dose reduction was used. CONTRAST: CT Chest for pulmonary embolism performed with with IV Contrast, patient injected with 80 mL of Isovu e 370. FINDINGS: LUNGS: There are emphysematous changes with patchy groundglass infiltrates bilaterally. There is a no dule seen in the right upper lobe measuring approximately 7 mm. No sizable pleural effusion or pneumo thorax. A degree of chronic interstitial pulmonary fibrosis or lung disease suspected. Subpleural pun ctate calcification axial image 32. MEDIASTINUM: Artifact and suboptimal enhancement limits the exam. There is no evidence of central pul monary embolism. Artifact limits the secondary and distal branches. Could not exclude a left upper lo be small pulmonary artery embolism on axial image 60 correlate clinically. There is shotty lymphadeno marquita in the mediastinum including the subcarinal region and hilum. Heart is enlarged and there is atherosclerotic change of the aorta. Atherosclerotic change of the pul monary arteries. OTHER: Hypertrophic and degenerative changes of the spine noted. IMPRESSION: 1. No central pulmonary embolism. However, a small left upper lobe branch pulmonary embolism cannot b e excluded on axial image 60. Correlate clinically. 2. COPD with groundglass areas of infiltrate correlate for pneumonitis or venous congestion. 3. Shotty mediastinal and hilar lymphadenopathy. 4. There is a 7 mm right upper lobe pulmonary nodule 3 month follow-up CT scan recommended.
[2021-03-26] MEDS ORDERED: HEPARIN SODIUM 1,000 UN/ML (10ML VL) IV PRN (23:24)
[2021-03-26] MEDS ORDERED: HEPARIN SODIUM 1,000 UN/ML (10ML VL) IV ONE (23:24)
[2021-03-26] MEDS ORDERED: ACETAMINOPHEN TAB 325 MG TAB PO PRN (23:30)
[2021-03-26] MEDS ORDERED: NALOXONE 0.4 MG/ML 1 ML VIAL IV PRN (23:30)
[2021-03-26] MEDS ORDERED: KETOROLAC 15 MG/ML 1 ML VIAL IVP PRN (23:30)
[2021-03-26] MEDS ORDERED: MORPHINE SULFATE 4 MG/ML SYRINGE IV PRN (23:30)
[2021-03-27] MEDS: HEPARIN SOD,PORK IN 0.45% NACL 25,000 UNIT in 0.45% NACL 1 250ML.BAG IV SCH ×3 (00:08→22:50)
[2021-03-27] MEDS: CLOPIDOGREL 75 MG TAB PO SCH (08:05)
[2021-03-27] MEDS: METOPROLOL SUCCINATE (ER) 50 MG TAB.ER.24H PO SCH (08:05)
[2021-03-27] MEDS: lisinopriL 5 MG TAB PO SCH (08:05)
[2021-03-27] MEDS ORDERED: ASPIRIN 81 MG PO SCH (09:00)
[2021-03-27 09:17] LABS: Basophils # (A) 0.1 k/uL (0-0.2); Basophils % (A) 1 %; Eosinophils # (A) 0.6 k/uL (0-0.7); Eosinophils % (A) 6 %; HCT 45.7 % (39.0-53.0); HGB 15.9 gm/dL (13.0-17.5); Lymphocytes # (A) 3.4 k/uL (1.0-4.8); Lymphocytes % (A) 34 %; MCH 29.6 pg (25.0-35.0); MCHC 34.8 g/dL (31.0-37.0); MCV 85.1 fL (80.0-100.0); Mean Platelet Volume 7.7; Monocytes # (A) 0.5 k/uL (0-1.0); Monocytes % (A) 5 %; Neutrophils # (A) 5.3 k/uL (1.3-7.7); Neutrophils % (A) 53 %; Platelet Count 202 k/uL (150-450); RBC 5.37 m/uL (4.30-5.90); RDW 13.4 % (11.5-15.5); WBC 10.1 k/uL (3.8-10.6)
[2021-03-27] MEDS ORDERED: NITROGLYCERIN SL TABS 0.4 MG TAB SUBLINGUAL PRN (09:45)
[2021-03-27] MEDS ORDERED: ALPRAZolam 0.5 MG TAB PO PRN (09:45)
[2021-03-27] MEDS ORDERED: ALPRAZolam 0.25 MG TAB PO PRN (09:45)
--- NOTE | 2021-03-27 10:11 | P.CRDCN ---
History of Present Illness Consult date: 03/27/21 History of present illness: HISTORY OF PRESENT ILLNESS: This is a 50 year old male with a past medical history significant for coronary artery disease with PCI to RCA in 2019, hypertension, and hyperlipidemia. Patient used to follow with Dr. Sandy but has not seen him in awhile. We have been asked to see the patient in consultation for PE. Patient examined at the bedside. Patient states yesterday he began having pain in between his shoulder blades that radiated to his left axillary area. He also reports some mild shortness of breath. Patient states he had about 3 episodes yesterday of this discomfort. He states the pain occurred while he was at rest. He states the pain would resolve on its own. Patient denies chest pain or pressure this morning. He denies SOB. Patient states he is unsure of exactly what medications he is taking at home. He also reports there are days where he does not take his medications. EKG reveals sinus mechanism with nonspecific ST-T wave changes Chest xray correlate for interstitial pneumonia. Venous congestion not excluded. Chest CTA: no central pulmonary embolism. However a small left upper lobe bran ch pulmonary embolism cannot be excluded. Laboratory data: WBC 10.1. Hemoglobin 15.9. Platelet count 202. D-dimer 0.88. Sodium 135. Potassium 4.1. BUN 13. Creatinine 0.96. Magnesium 2.2. troponin 0.017. 0.022. 0.029. Current home cardiac medications include lisinopril 5 mg daily, metoprolol succinate 50 mg daily, Plavix 75 mg daily, Lipitor 80 mg daily, aspirin 81 mg daily Most recent echocardiogram obtained in January 2019 revealed ejection fraction 55-60%, mild aortic stenosis, trace mitral regurgitation, trace tricuspid regurgitation Cardiac catheterization history: January 2018 with aspiration thrombectomy from the right coronary artery, successful stenting of the proximal right coronary artery and successful stenting of the mid right coronary artery REVIEW OF SYSTEMS: At the time of my exam: CONSTITUTIONAL: Denies fever or chills. HEENT: Denies blurred vision, vision changes, or eye pain. Denies hemoptysis CARDIOVASCULAR: Denies chest pain. Denies orthopnea. Denies PND. Denies palpitations RESPIRATORY: Denies shortness of breath. GASTROINTESTINAL: Denies abdominal pain. Denies nausea or vomiting. HEMATOLOGIC: Denies bleeding disorders. GENITOURINARY: Denies any blood in urine. SKIN: Denies pruitis. Denies rash. PHYSICAL EXAM: VITAL SIGNS: Reviewed. GENERAL: Well-developed in no acute distress. HEENT: Head is normocephalic. Pupils are equal, round. Sclerae anicteric. Mucous membranes of the mouth are moist. Neck supple. No JVD or thyromegaly LUNGS: Respirations even and unlabored. Lungs essentially clear to auscultation bilaterally. HEART: Regular rate and rhythm. S1 and S2 heard. systolic murmur noted. ABDOMEN: Soft. Nondistended. Nontender. EXTREMITIES: Normal range of motion. No clubbing or cyanosis. Peripheral pulses intact. No lower extremity edema NEUROLOGIC: Awake and alert. Oriented x 3. ASSESSMENT: Possible unstable angina Possible small left upper lobe branch pulmonary embolism Coronary artery disease with previous PCI to RCA 2018 Hypertension Hyperlipidemia Nicotine dependence PLAN: Obtain 2D echo to assess cardiac structure and function Continue IV heparin Await pulmonary evaluation Continue additional cardiac medications Patient to undergo cardiac cath tomorrow with Dr. Sandy pending pulmonary evaluation and clearance Further recommendations pending patient course Nurse practitioner note has been reviewed by physician. Signing provider agrees with the documented findings, assessment, and plan of care. Past Medical History Past Medical History: Coronary Artery Disease (CAD), Myocardial Infarction (MS) Additional Past Medical History / Comment(s): Bronchitis, gastric ulcer as a teen, 2016 L leg cellulitis, chronic low back pain, vertigo Last Myocardial Infarction Date:: February 2019 History of Any Multi-Drug Resistant Organisms: None Reported Past Surgical History: Heart Catheterization With Stent Additional Past Surgical History / Comment(s): Egd, colonoscopy Past Anesthesia/Blood Transfusion Reactions: No Reported Reaction Date of Last Stent Placement:: February of 2019 Past Psychological History: No Psychological Hx Reported Smoking Status: Current every day smoker Past Alcohol Use History: None Reported Additional Past Alcohol Use History / Comment(s): Pt started smoking in 1979 and is a ppd smoker. Past Drug Use History: None Reported - Past Family History Father Family Medical History: Coronary Artery Disease (CAD), Myocardial Infarction (MS) Additional Family Medical History / Comment(s): Father of [place] at the age of 71 yrs. Sister(s) Additional Family Medical History / Comment(s): Sister has a heart murmur. Medications and Allergies Home Medications Medication Instructions Recorded Confirmed Type Aspirin 81 mg PO DAILY #30 chew 01/21/19 03/26/21 Rx Atorvastatin [Lipitor] 80 mg PO HS #30 tab 01/21/19 03/26/21 Rx Clopidogrel [Plavix] 75 mg PO DAILY #30 tab 01/21/19 03/26/21 Rx Nitroglycerin Sl Tabs [Nitrostat] 0.4 mg SUBLINGUAL Q5M PRN #25 tab 01/21/19 03/26/21 Rx lisinopriL [Prinivil] 5 mg PO DAILY 05/09/19 03/26/21 History Metoprolol Succinate [Toprol XL] 50 mg PO DAILY 03/26/21 03/26/21 History Allergies Allergy/AdvReac Type Severity Reaction Status Date / Time No Known Allergies Allergy Verified 03/26/21 21:49 Physical Exam Vitals: Vital Signs Temp Pulse Pulse Resp BP BP Pulse Ox 03/27/21 08:00 97.9 F 68 18 124/66 97 03/27/21 04:00 97.9 F 75 16 116/58 98 03/27/21 01:00 98.0 F 75 16 122/67 97 03/26/21 22:20 74 18 102/69 96 03/26/21 21:43 81 18 119/81 96 03/26/21 20:09 97.5 F L 84 22 112/69 92 L Intake and Output 03/26/21 03/27/21 03/27/21 22:59 06:59 14:59 Intake Total 10 357 Balance 10 357 Intake: IV 10 Invasive Line 1 10 Oral 357 Other: Voiding Method Toilet Toilet # Voids 1 Weight 108.862 kg 107.5 kg Results 03/27/21 08:03 03/26/21 21:34 Cardiac Enzymes 03/26/21 03/26/21 03/27/21 Range/Units 21:34 21:34 00:16 AST 26 (17-59) U/L Troponin I 0.017 0.022 (0.000-0.034) ng/mL 03/27/21 Range/Units 08:03 AST (17-59) U/L Troponin I 0.029 (0.000-0.034) ng/mL Coagulation 03/26/21 Range/Units 21:34 PT 9.8 (9.0-12.0) sec APTT 26.5 (22.0-30.0) sec CBC 03/26/21 03/27/21 Range/Units 21:34 08:03 WBC 11.9 H 10.1 (3.8-10.6) k/uL RBC 5.71 5.37 (4.30-5.90) m/uL Hgb 16.7 15.9 (13.0-17.5) gm/dL Hct 49.5 45.7 (39.0-53.0) % Plt Count 201 202 (150-450) k/uL Comprehensive Metabolic Panel 03/26/21 Range/Units 21:34 Sodium 135 L (137-145) mmol/L Potassium 4.1 (3.5-5.1) mmol/L Chloride 106 (98-107) mmol/L Carbon Dioxide 21 L (22-30) mmol/L BUN 13 (9-20) mg/dL Creatinine 0.96 (0.66-1.25) mg/dL Glucose 135 H (74-99) mg/dL Calcium 9.0 (8.4-10.2) mg/dL AST 26 (17-59) U/L ALT 27 (4-49) U/L Alkaline Phosphatase 108 (38-126) U/L Total Protein 6.7 (6.3-8.2) g/dL Albumin 3.9 (3.5-5.0) g/dL Current Medications Generic Name Dose Route Start Last Admin Trade Name Freq PRN Reason Stop Dose Admin Acetaminophen 650 mg 03/26/21 23:30 Acetaminophen Tab 325 Mg Tab PO Q6HR PRN Mild Pain or Fever > 100.5 Alprazolam 0.25 mg 03/27/21 09:45 Alprazolam 0.25 Mg Tab PO Q6HR PRN Mild Anxiety Alprazolam 0.5 mg 03/27/21 09:45 Alprazolam 0.5 Mg Tab PO Q6HR PRN Moderate Anxiety Aspirin 81 mg 03/27/21 09:00 03/27/21 08:05 Aspirin 81 Mg PO 81 mg DAILY [facility] Administration Aspirin 325 mg 03/28/21 07:00 Aspirin 325 Mg Tab PO 03/28/21 07:01 ONCE ONE Atorvastatin Calcium 80 mg 03/27/21 21:00 Atorvastatin 80 Mg Tab PO [facility] Atorvastatin Calcium 80 mg 03/28/21 07:00 Atorvastatin 80 Mg Tab PO 03/28/21 07:01 ONCE ONE Clopidogrel Bisulfate 75 mg 03/27/21 09:00 03/27/21 08:05 Clopidogrel 75 Mg Tab PO 75 mg DAILY [facility] Administration Heparin Sodium (Porcine) 0 unit 03/26/21 23:24 Heparin Sodium 1,000 Un/Ml (10ml Vl) IV PER PROTOCOL PRN Low PTT Protocol Heparin Sodium/Sodium Chloride 250 mls @ 19.595 mls/hr 03/26/21 23:30 03/27/21 00:08 25,000 unit/ Sodium Chloride IV 18 units/kg/hr .[id number] [facility] 19.595 mls/hr Administration Protocol 18 UNITS/KG/HR Sodium Chloride 1,000 ml/ IV 1,000 mls @ 107.5 mls/hr 03/27/21 23:00 Solution IV .[id number] [facility] 1 ML/KG/HR Heparin Sodium (Porcine) 10, 1,001 mls @ 999 mls/hr 03/28/21 07:00 000 unit/ Sodium Chloride IRRIGATION 03/28/21 23:00 ONCE PRN INTRA-OP Heparin Sodium (Porcine) 2,500 250.5 mls @ 250 mls/hr 03/28/21 07:00 unit/ Sodium Chloride IRRIGATION 03/28/21 23:00 ONCE PRN INTRA-OP Lisinopril 5 mg 03/27/21 09:00 03/27/21 08:05 Lisinopril 5 Mg Tab PO 5 mg DAILY [facility] Administration Metoprolol Succinate 50 mg 03/27/21 09:00 03/27/21 08:05 Metoprolol Succinate (Er) 50 Mg Tab.Er.24h PO 50 mg DAILY [facility] Administration Morphine Sulfate 4 mg 03/26/21 23:30 Morphine Sulfate 4 Mg/Ml Syringe IV Q4HR PRN Severe Pain Naloxone HCl 0.2 mg 03/26/21 23:30 Naloxone 0.4 Mg/Ml 1 Ml Vial IV Q2M PRN Opioid Reversal Nitroglycerin 0.4 mg 03/27/21 09:45 Nitroglycerin Sl Tabs 0.4 Mg Tab SUBLINGUAL Q5M PRN Chest Pain Intake and Output 03/26/21 03/27/21 03/27/21 22:59 06:59 14:59 Intake Total 10 357 Balance 10 357 Intake: IV 10 Invasive Line 1 10 Oral 357 Other: Voiding Method Toilet Toilet # Voids 1 Weight 108.862 kg 107.5 kg 03/27/21 08:03 03/26/21 21:34
--- NOTE | 2021-03-27 12:18 | ECHOF ---
Referral Reason:left pulmonary embolism MEASUREMENTS -------- HEIGHT: 170.2 cm WEIGHT: 107.0 kg BP: IVSd: 1.4 cm (0.6 - 1.1) LVIDd: 4.5 cm (3.9 - 5.3) LVPWd: 1.7 cm (0.6 - 1.1) IVSs: 1.6 cm LVIDs: 3.7 cm LVPWs: 1.6 cm Ao Diam: 3.0 cm (2.0 - 3.7) AV Cusp: 1.7 cm (1.5 - 2.6) LA Diam: 4.4 cm (2.7 - 3.8) MV EXCURSION: 20.694 mm (> 18.000) MV EF SLOPE: 103 mm/s (70 - 150) EPSS: 0.3 cm MV E Nader: 0.49 m/s MV DecT: 247 ms MV A Nader: 0.58 m/s MV E/A Ratio: 0.85 AV maxP.58 mmHg AV meanP.76 mmHg RAP: 5.00 mmHg RVSP: 13.49 mmHg FINDINGS -------- Sinus rhythm. This was a technically adequate study. The left ventricular size is normal. There is moderate concentric left ventricular hypertrophy. O verall left ventricular systolic function is low-normal with, an EF between 50 - 55 %. Basal inferi or LV wall motion is hypokinetic. The right ventricle is normal in size. The left atrial size is normal. The right atrial size is normal. The aortic valve was not well visualized. There is mild aortic regurgitation. There is moderate-t o-severe aortic stenosis present. Peak/mean gradient across the Aortic Valve is 71.58mmHg / 42.76mm Hg. The valve opening appears fair but there is turbulence and high gradient. Mild mitral annular calcification present. Mild mitral regurgitation is present. Mild tricuspid regurgitation present. Right ventricular systolic pressure is normal at < 35 mmHg. There is mild pulmonary hypertension. The pulmonic valve was not well visualized. CONCLUSIONS -------- 1. The left ventricular size is normal. 2. There is moderate concentric left ventricular hypertrophy. 3. Overall left ventricular systolic function is low-normal with, an EF between 50 - 55 %. 4. Basal inferior LV wall motion is hypokinetic. 5. The right ventricle is normal in size. 6. The left atrial size is normal. 7. The right atrial size is normal. 8. The aortic valve was not well visualized. 9. There is mild aortic regurgitation. 10. Peak/mean gradient across the Aortic Valve is 71.58mmHg / 42.76mmHg. 11. Mild mitral annular calcification present. 12. Mild mitral regurgitation is present. 13. There is mild pulmonary hypertension. 14. The pulmonic valve was not well visualized. BED WORKER: Ashley Cope RDCS
--- NOTE | 2021-03-27 15:57 | P.CNPUL ---
History of Present Illness Consult date: 03/27/21 Requesting physician: Shan Arnold Reason for consult: chest pain, pulmonary embolism, abnormal CXR/CT Chief complaint: Rule out pulmonary embolism. History of present illness: Pulmonary/critical care consultation dated 03/27/2021 50-year-old male, seen in the emergency department, on 03/26/2021. The patient apparently presented with chest, shoulder, and arm pain. He does have a past medical history positive for cardiac stents, and complained of sharp pleuritic type chest pain, noted particularly in the shoulder and arm area. It also appeared to be in his back. The patient apparently complained of mild shortness of breath as well. He denied any fever, chills, cough, or contact with any sick individuals. He also denied all abdominal and genitourinary complaints. In part of the workup, the patient had a CT angiogram, and we were asked to comment as to whether or not the patient had a pulmonary embolism. Current vital signs are very stable including her room air saturation of 97%, blood pressure 124/66, heart rate 68, respiratory rate 18, with a normal temperature. Lab data includes a white count of 10.1, normal hemoglobin, hematocrit, and platelet count. D-dimer was 0.88. Sodium was 135, potassium 4.1, chlorides 106, CO2 21, anion gap 8, E1 13, and creatinine 0.96. Troponins were 0.017 0.022 and 0.029. Chest x-ray showed some mild interstitial changes. CT angiogram showed no central pulmonary emboli, but there may be a small left upper lobe branch pul monary embolism on one of the images. In addition, there was some mediastinal and hilar adenopathy, a 7 mm right upper lobe pulmonary nodule, and some groundglass infiltrates, consistent with either pneumonitis or venous congestion. Review of Systems REVIEW OF SYSTEMS: CONSTITUTIONAL: [Negative.] NEUROLOGIC: [ Negative.] HEENT: [ Negative.] CARDIAC: Chest pain. PULMONARY: Minimal shortness of breath. GI: [Negative.] : [Negative.] RHEUMATOLOGIC: [ Negative.] IMMUNOLOGIC: [ Negative.] ENDOCRINE: [Negative. ] DERMATOLOGIC: [Negative.] Past Medical History Past Medical History: Coronary Artery Disease (CAD), Myocardial Infarction (SD) Additional Past Medical History / Comment(s): Bronchitis, gastric ulcer as a teen, 2016 L leg cellulitis, chronic low back pain, vertigo Last Myocardial Infarction Date:: February 2019 History of Any Multi-Drug Resistant Organisms: None Reported Past Surgical History: Heart Catheterization With Stent Additional Past Surgical History / Comment(s): Egd, colonoscopy Past Anesthesia/Blood Transfusion Reactions: No Reported Reaction Date of Last Stent Placement:: February of 2019 Past Psychological History: No Psychological Hx Reported Smoking Status: Current every day smoker Past Alcohol Use History: None Reported Additional Past Alcohol Use History / Comment(s): Pt started smoking in 1979 and is a ppd smoker. Past Drug Use History: None Reported - Past Family History Father Family Medical History: Coronary Artery Disease (CAD), Myocardial Infarction (SD) Additional Family Medical History / Comment(s): Father of SD at the age of 71 yrs. Sister(s) Additional Family Medical History / Comment(s): Sister has a heart murmur. Medications and Allergies Home Medications Medication Instructions Recorded Confirmed Type Aspirin 81 mg PO DAILY #30 chew 01/21/19 03/26/21 Rx Atorvastatin [Lipitor] 80 mg PO HS #30 tab 01/21/19 03/26/21 Rx Clopidogrel [Plavix] 75 mg PO DAILY #30 tab 01/21/19 03/26/21 Rx Nitroglycerin Sl Tabs [Nitrostat] 0.4 mg SUBLINGUAL Q5M PRN #25 tab 01/21/19 03/26/21 Rx lisinopriL [Prinivil] 5 mg PO DAILY 05/09/19 03/26/21 History Metoprolol Succinate [Toprol XL] 50 mg PO DAILY 03/26/21 03/26/21 History Allergies Allergy/AdvReac Type Severity Reaction Status Date / Time No Known Allergies Allergy Verified 03/26/21 21:49 Physical Exam Osteopathic Statement: *. No significant issues noted on an osteopathic structural exam other than those noted in the History and Physical/Consult. Vitals: Vital Signs Temp Pulse Pulse Resp BP BP Pulse Ox 03/27/21 08:00 97.9 F 68 18 124/66 97 03/27/21 04:00 97.9 F 75 16 116/58 98 03/27/21 01:00 98.0 F 75 16 122/67 97 03/26/21 22:20 74 18 102/69 96 03/26/21 21:43 81 18 119/81 96 03/26/21 20:09 97.5 F L 84 22 112/69 92 L Intake and Output 03/27/21 03/27/21 03/27/21 06:59 14:59 22:59 Intake Total 10 727.000 Balance 10 727.000 Intake: IV 10 Invasive Line 1 10 Intake, IV Titration 250.000 Amount Heparin Sod,Pork in 0.45% 250.000 NaCl 25,000 unit In 0.45 % NaCl 1 250ml.bag @ 18 UNITS/KG/HR 19.595 mls/hr IV .[id number] [facility] Rx#: [id number] Oral 477 Other: Voiding Method Toilet Toilet # Voids 1 1 Weight 107.5 kg No acute distress, oriented 3. Currently on room air. Saturations 97-98%. HEENT examination is grossly unremarkable. Neck supple. Full range of motion. No adenopathy thyromegaly or neck vein distention. Cardiovascular examination reveals regular rhythm rate. S1-S2 normal. No S3 or S4. No discernible murmur noted. Heart rate 60 bpm. Lungs reveal scattered mild rhonchi. No wheezes or crackles. Breath sounds equal bilaterally. The patient is not demonstrating any respiratory difficulty or distress. Abdomen soft bowel sounds are heard. No masses or tenderness. Extremities are intact. No cyanosis clubbing or edema. No pain or tenderness. Skin is without rash or lesion. Neurologic examination is brief but nonfocal. Results - Laboratory Findings CBC and BMP: 03/27/21 08:03 03/26/21 21:34 PT/INR, D-dimer PT 9.8 sec (9.0-12.0) 03/26/21 21:34 INR 0.9 (<1.2) 03/26/21 21:34 D-Dimer 0.88 mg/L FEU (<0.60) H 03/26/21 21:34 Abnormal lab findings: Abnormal Labs 03/26/21 03/26/21 03/26/21 21:34 21:34 21:34 WBC 11.9 H Neutrophils # 8.0 H APTT D-Dimer 0.88 H Sodium 135 L Carbon Dioxide 21 L Glucose 135 H 03/27/21 08:03 WBC Neutrophils # APTT 135.5 H* D-Dimer Sodium Carbon Dioxide Glucose - Diagnostic Findings Chest x-ray: image reviewed CT scan - chest: image reviewed Assessment and Plan Assessment: Possible small left upper lobe subsegmental pulmonary embolism. Chest pain, currently being evaluated by cardiology, with possible catheterization down the road. History of hyperlipidemia. History of coronary artery disease, status post catheterization with PCI. History of hypertension. History of ongoing tobacco use with nicotine addiction. Plan: Plan dated 03/27/2021. The computed tomography scan was reviewed, and in my opinion, it's hard to imagine, a clot, in the left upper lobe, but certainly, there are no large central pulmonary emboli. That should not preclude the cardiology service from proceeding with catheterization. We will continue to follow and make r ecommendations where appropriate. Some recent data would suggest that there is no need to treat the small subsegmental pulmonary emboli. Dopplers of the lower extremities would be beneficial in my opinion. Time with Patient: Greater than 30
--- NOTE | 2021-03-27 18:22 | HP ---
HISTORY AND PHYSICAL CHIEF COMPLAINT: Left-sided chest pain. HISTORY OF PRESENT ILLNESS: This is another admission for this 50-year-old white male. He presented to the emergency room with left lateral chest wall pain. He had a minimally elevated D-dimer and a CTA was probably normal. He has had a history of recurrent episodes of cellulitis of the left lower extremity. He had no associated radiation of the pain, diaphoresis, nausea, syncope, significant shortness of breath, etc. REVIEW OF SYSTEMS: Otherwise normal. He has had no pleuritic component to the pain, hemoptysis, palpitations, abdominal pain, nausea, vomiting, hematemesis, renal failure, urinary complaints, etc. Past medical history, family history, personal and social histories reveal that he is not allergic to any medication. He has a history of hypertension and ADHD. MEDICATIONS: Ibuprofen 800 mg, 81 mg of aspirin, lisinopril 5 mg, clopidogrel 75 once a day, atorvastatin 80 once a day, sildenafil, metoprolol succinate 50 mg once a day, vitamin D. He has had no surgery. He is a smoker. PHYSICAL EXAMINATION: Blood pressure 120/66, pulse 78, respirations of 18. He is afebrile. In general, he appeared to be slightly overweight in no acute distress. Skin color is normal. Skin is warm, dry. Lymph nodes are not enlarged. Head, ears, eyes, nose, mouth and throat were normal. Neck veins are not distended. Thyroid not enlarged. Chest is clear. There are no rubs. Cardiac exam is normal. Normal sinus rhythm and no murmurs or extra sounds. Abdomen is soft and nontender without visceromegaly or masses. Bowel sounds present. Extremities normal. Neurologically he is intact. IMPRESSION: 1. Left lateral chest wall pain, probably due to pleurisy. 2. Slightly elevated D-dimer. 3. Hypertension. PLAN: 1. Bedrest. 2. IV fluids. 3. Serial EKGs and enzymes. 4. Consult with Cardiology, pulmonology. MMODL / IJN: [id number] /
--- NOTE | 2021-03-27 18:28 | PN ---
PROGRESS NOTE DATE OF SERVICE: 03/27/2021. CHIEF COMPLAINT: Chest pain. HISTORY OF PRESENT ILLNESS: This gentleman feels fine today and the pain is gone. He has had no shortness of breath. Troponin is normal. PHYSICAL EXAMINATION: Chest is clear. Cardiac exam is normal. Abdomen is soft, nontender. IMPRESSION: Left lateral chest wall pain. PLAN: He can probably go home, but he understands that he is being taken for cardiac cath tomorrow. MMODL / IJN: [id number] /
[2021-03-27] MEDS ORDERED: ATORVASTATIN 80 MG TAB PO SCH (21:00)
[2021-03-27] MEDS: SODIUM CHLORIDE 0.9% 1,000 ML in EMPTY BAG 1 BAG IV SCH (22:49)
[2021-03-28] MEDS ORDERED: HEPARIN SODIUM,PORCINE 2,500 UNIT in SODIUM CHLORIDE 0.9% 250 ML IRRIGATION PRN (07:00)
[2021-03-28] MEDS ORDERED: ASPIRIN 325 MG TAB PO ONE (07:00)
[2021-03-28] MEDS ORDERED: ATORVASTATIN 80 MG TAB PO ONE (07:00)
[2021-03-28] MEDS ORDERED: HEPARIN SODIUM,PORCINE 10,000 UNIT in SODIUM CHLORIDE 0.9% 1,000 ML IRRIGATION PRN (07:00)
[2021-03-28] MEDS: CLOPIDOGREL 75 MG TAB PO SCH (08:33)
[2021-03-28] MEDS: METOPROLOL SUCCINATE (ER) 50 MG TAB.ER.24H PO SCH (08:34)
[2021-03-28] MEDS: lisinopriL 5 MG TAB PO SCH (08:34)
[2021-03-28] MEDS ORDERED: LIDOCAINE 1% INJ 10MG/ML (20 ML MDV) ONE (11:06)
[2021-03-28] MEDS ORDERED: HEPARIN SODIUM 1,000 UN/ML (10ML VL) ONE (11:06)
[2021-03-28] MEDS ORDERED: VERAPAMIL 2.5 MG/ML 2 ML AMP ONE (11:07)
[2021-03-28] MEDS ORDERED: IV FLUID CONTINUATION 1,000 ML IV ONE (11:20)
[2021-03-28] MEDS ORDERED: MIDAZOLAM 2 MG/2 ML VIAL IV ONE (11:30)
[2021-03-28] MEDS ORDERED: LIDOCAINE 1% INJ 10MG/ML (20 ML MDV) SQ ONE (11:34)
[2021-03-28] MEDS ORDERED: VERAPAMIL SYRINGE (5 MG/10 ML) INTRAARTER ONE (11:36)
[2021-03-28] MEDS ORDERED: IOPAMIDOL-370 125ML BTL INJ ONE (11:48)
[2021-03-28] MEDS ORDERED: RX INFO: IV CONTRAST WAS GIVEN 1 EACH MISC MISCELLANE PRN (11:55)
[2021-03-28] MEDS ORDERED: SODIUM CHLORIDE 0.9% 1,000 ML IV SCH (12:00)
--- NOTE | 2021-03-28 13:23 | P.PN ---
Subjective Progress Note Date: 03/28/21 Principal diagnosis: Chest pain 50-year-old male, seen in the emergency department, on 03/26/2021. The patient apparently presented with chest, shoulder, and arm pain. He does have a past medical history positive for cardiac stents, and complained of sharp pleuritic type chest pain, noted particularly in the shoulder and arm area. It also appeared to be in his back. The patient apparently complained of mild shortness of breath as well. He denied any fever, chills, cough, or contact with any sick individuals. He also denied all abdominal and genitourinary complaints. In part of the workup, the patient had a CT angiogram, and we were asked to comment as to whether or not the patient had a pulmonary embolism. Current vital signs are very stable including her room air saturation of 97%, blood pressure 124/66, heart rate 68, respiratory rate 18, with a normal temperature. Lab data includes a white count of 10.1, normal hemoglobin, hematocrit, and platelet count. D-dimer was 0.88. Sodium was 135, potassium 4.1, chlorides 106, CO2 21, anion gap 8, E1 13, and creatinine 0.96. Troponins were 0.017 0.022 and 0.029. Chest x-ray showed some mild interstitial changes. CT angiogram showed no central pulmonary emboli, but there may be a small left upper lobe branch pulmonary embolism on one of the images. In addition, there was some mediastinal and hilar adenopathy, a 7 mm right upper lobe pulmonary nodule, and some groundglass infiltrates, consistent with either pneumonitis or venous congestion. The patient is seen today 03/28/2021 in follow-up. He is currently resting comfortably in bed. Awake and alert in no acute distress or continues to mainta in O2 saturations in the 90s on room air. He did undergo cardiac catheterization today and reported as no significant blockage according to staff. To be treated medically. Remain off heparin. No significant PE. Objective - Vital Signs Vital signs: Vital Signs Temp 97.9 F 03/28/21 11:00 Pulse 76 03/28/21 11:00 Resp 16 03/28/21 11:00 BP 113/62 03/28/21 11:00 Pulse Ox 97 03/28/21 11:00 Intake & Output 03/27/21 03/28/21 03/28/21 18:59 06:59 18:59 Intake Total 1019.253 67.221 308.936 Balance 1019.253 67.221 308.936 Weight 108.5 kg Intake: IV 150 Intake, IV Titration 302.253 67.221 158.936 Amount Heparin Sod,Pork in 0.45% 302.253 67.221 158.936 NaCl 25,000 unit In 0.45 % NaCl 1 250ml.bag @ 18 UNITS/KG/HR 19.595 mls/hr IV .[id number] [facility] [place] Rx#: [id number] Oral 717 Other: Voiding Method Toilet Toilet Toilet # Voids 1 1 - Exam GENERAL EXAM: Alert, pleasant 50-year-old gentleman, on room air, comfortable in no apparent distress. HEAD: Normocephalic. EYES: Normal reaction of pupils, equal size. NOSE: Clear with pink turbinates. THROAT: No erythema or exudates. NECK: No masses, no JVD. CHEST: No chest wall deformity. LUNGS: Equal air entry with no crackles, wheeze, rhonchi or dullness. CVS: S1 and S2 normal with no audible murmur, regular rhythm. ABDOMEN: No hepatosplenomegaly, normal bowel sounds, no guarding or rigidity. SPINE: No scoliosis or deformity SKIN: No rashes CENTRAL NERVOUS SYSTEM: No focal deficits, tone is normal in all 4 extremities. EXTREMITIES: There is no peripheral edema. No clubbing, no cyanosis. Peripheral pulses are intact. - Labs CBC & Chem 7: 03/27/21 08:03 03/26/21 21:34 Labs: Abnormal Lab Results - Last 24 Hours (Table) 03/27/21 Range/Units 18:10 APTT 58.4 H (22.0-30.0) sec Assessment and Plan Assessment: 1 Possible small left upper lobe subsegmental pulmonary embolism. No anticoagulation recommended at this time 2 Chest pain, currently being evaluated by cardiology, no significant stenosis per cardiac catheterization 3 History of hyperlipidemia 4 History of coronary artery disease, status post catheterization with PCI 5 History of hypertension 6 History of ongoing tobacco use with nicotine addiction Plan: The patient was seen and evaluated by Dr. Jil Lomax for discharge from the pulmonary standpoint No anticoagulation recommended, doubt PE Educated regarding the importance of complete smoking cessation I, the cosigning physician, performed a history & physical examination of the patient. Lungs sounds are clear. Maintaining good O2 saturations in the 90s on room air. I discussed the assessment and plan of care with my nurse practitioner, Chloe Ghosh. I attest to the above note as dictated by her.
--- NOTE | 2021-03-28 15:21 | CC ---
CARDIAC CATHETERIZATION REPORT DATE OF SERVICE: March 28, 2021. PERFORMING PHYSICIAN: Lazaro Sandy M.D. PROCEDURE PERFORMED: Selective right and left coronary angiogram. INDICATION: Acute pyv-[id number] myocardial infarction. COMPLICATION: None. LEVEL OF SEDATION: Moderate with sedation length of 16 minutes. PROCEDURE DESCRIPTION: After obtaining informed consent, the patient was brought to the cardiac engineer geophysical laboratory. The right radial artery was cannulated using micropuncture technique and a micropuncture wire passed easily. Then I placed a 6-Filipino sheath at the right radial artery. I gave the patient 2 mg of verapamil IA and 6000 units of heparin IV. Selective right and left coronary angiogram performed with JR4 and JL3.5 catheters. Left heart catheterization was not performed. The procedure was completed without any complication. SELECTIVE CORONARY ANGIOGRAM: 1. The RCA is a large caliber vessel. It is a dominant vessel. The proximal RCA has about 30% disease. The mid RCA is stented and the stent is patent. The RCA distally bifurcates into PDA and PLV branches and both appeared to be angiographically normal. 2. The left main is angiographically normal. Bifurcates into left circumflex and left anterior descending artery. 3. The left circumflex is a large caliber vessel. It is a nondominant vessel. The left circumflex appeared to be angiographically normal. It gives rise into first and second obtuse marginal branches. Both appeared to be angiographically normal. 4. The LAD is angiographically normal. It gives rise into first and second diagonal branches, both appeared to be angiographically normal. CONCLUSION: 1. Patent stent in the mid RCA. 2. Mild disease involving the proximal RCA appeared to be in the range of 30%. 3. Normal left coronary system. POSTPROCEDURE MANAGEMENT: Medical treatment and follow up with the patient. MMODL / IJN: [id number] /
[2021-03-28] MEDS: SODIUM CHLORIDE 0.9% 1,000 ML in EMPTY BAG 1 BAG IV SCH ×2 (20:06→20:12)
--- NOTE | 2021-03-28 20:39 | PN ---
PROGRESS NOTE DATE OF SERVICE: 03/28/2021 CHIEF COMPLAINT: Chest pain. HISTORY OF PRESENT ILLNESS: Currently been stable. He has had no further pain. He is going for cardiac cath. PHYSICAL EXAMINATION: Chest is clear. Cardiac exam is normal. Abdomen is soft, nontender. IMPRESSION: Left lateral chest wall pain. PLAN: Await further evaluation by Cardiology. MMODL / IJN: [id number] /
[2021-03-29] MEDS ORDERED: ASPIRIN 81 MG PO SCH (09:00)
[2021-03-29 09:57] VITALS: BP 115/71; PULSE 72; RESP 15; TEMP 98
[2021-03-29] MEDS: CLOPIDOGREL 75 MG TAB PO SCH (09:57)
[2021-03-29] MEDS: METOPROLOL SUCCINATE (ER) 50 MG TAB.ER.24H PO SCH (09:57)
[2021-03-29] MEDS: lisinopriL 5 MG TAB PO SCH (09:57)
--- NOTE | 2021-03-29 12:02 | P.PN ---
Subjective Progress Note Date: 03/29/21 HISTORY OF PRESENT ILLNESS: This is a 50 year old male with a past medical history significant for coronary artery disease with PCI to RCA in 2019, hypertension, and hyperlipidemia. Patient used to follow with Dr. Sandy but has not seen him in awhile. We have been asked to see the patient in consultation for PE. Patient examined at the bedside. Patient states yesterday he began having pain in between his shoulder blades that radiated to his left axillary area. He also reports some mild shortness of breath. Patient states he had about 3 episodes yesterday of this discomfort. He states the pain occurred while he was at rest. He states the pain would resolve on its own. Patient denies chest pain or pressure this morning. He denies SOB. Patient states he is unsure of exactly what medications he is taking at home. He also reports there are days where he does not take his medications. EKG reveals sinus mechanism with nonspecific ST-T wave changes Chest xray correlate for interstitial pneumonia. Venous congestion not excluded. Chest CTA: no central pulmonary embolism. However a small left upper lobe branch pulmonary embolism cannot be excluded. Laboratory data: WBC 10.1. Hemoglobin 15.9. Platelet count 202. D-dimer 0.88. Sodium 135. Potassium 4.1. BUN 13. Creatinine 0.96. Magnesium 2.2. troponin 0.017. 0.022. 0.029. Current home cardiac medications include lisinopril 5 mg daily, metoprolol succinate 50 mg daily, Plavix 75 mg daily, Lipitor 80 mg daily, aspirin 81 mg daily Most recent echocardiogram obtained in January 2019 revealed ejection fraction 55-60%, mild aortic stenosis, trace mitral regurgitation, trace tricuspid regurgitation Cardiac catheterization history: January 2018 with aspiration thrombectomy from the right coronary artery, successful stenting of the proximal right coronary artery and successful stenting of the mid right coronary artery 03/29/2021 Patient underwent cardiac catheterization revealing patent stent to the RCA. Mild disease of the proximal RCA with a 30% lesion. Medical management was inez mmended. Patient examined this morning at the bedside. Patient denies chest pain or pressure. He denies shortness of breath. Echocardiogram completed revealed ejection fraction 50-55%. Vital signs are stable. PHYSICAL EXAM: VITAL SIGNS: Reviewed. GENERAL: Well-developed in no acute distress. HEENT: Head is normocephalic. Pupils are equal, round. Sclerae anicteric. Mucous membranes of the mouth are moist. Neck supple. No JVD or thyromegaly LUNGS: Respirations even and unlabored. Lungs essentially clear to auscultation bilaterally. HEART: Regular rate and rhythm. S1 and S2 heard. systolic murmur noted. ABDOMEN: Soft. Nondistended. Nontender. EXTREMITIES: Normal range of motion. No clubbing or cyanosis. Peripheral pulses intact. No lower extremity edema. Right radial cath site with pulse present. NEUROLOGIC: Awake and alert. Oriented x 3. ASSESSMENT: Possible unstable angina Possible small left upper lobe branch pulmonary embolism Coronary artery disease with previous PCI to RCA 2018 Hypertension Hyperlipidemia Nicotine dependence PLAN: Continue current cardiac medications Patient is stable for discharge home today from a cardiac standpoint. Patient to follow up on an outpatient basis with Dr. Sandy Nurse practitioner note has been reviewed by physician. Signing provider agrees with the documented findings, assessment, and plan of care. Objective - Vital Signs Vital signs: Vital Signs Temp 98.0 F 03/29/21 09:55 Pulse 72 03/29/21 09:55 Resp 15 03/29/21 09:55 BP 115/71 03/29/21 09:55 Pulse Ox 96 03/29/21 09:55 Intake & Output 03/28/21 03/29/21 03/29/21 18:59 06:59 18:59 Intake Total 1128.936 240 Balance 1128.936 240 Weight 109.5 kg Intake: IV 150 Intake, IV Titration 258.936 Amount Heparin Sod,Pork in 0.45% 158.936 NaCl 25,000 unit In 0.45 % NaCl 1 250ml.bag @ 18 UNITS/KG/HR 19.595 mls/hr IV .[id number] [facility] Rx#: [id number] Sodium Chloride 0.9% 1, 100 000 ml @ 75 mls/hr IV . [id number] [facility] Rx#:[id number] Oral 720 240 Other: Voiding Method Toilet Toilet Toilet # Voids 3 2 - Labs CBC & Chem 7: 03/27/21 08:03 03/26/21 21:34
[2021-03-29] MEDS: SODIUM CHLORIDE 0.9% 1,000 ML in EMPTY BAG 1 BAG IV SCH (12:55)
--- NOTE | 2021-03-29 13:32 | P.PN ---
Subjective Progress Note Date: 03/29/21 Principal diagnosis: Chest pain. Chest pain 50-year-old male, seen in the emergency department, on 03/26/2021. The patient apparently presented with chest, shoulder, and arm pain. He does have a past medical history positive for cardiac stents, and complained of sharp pleuritic type chest pain, noted particularly in the shoulder and arm area. It also appeared to be in his back. The patient apparently complained of mild shortness of breath as well. He denied any fever, chills, cough, or contact with any sick individuals. He also denied all abdominal and genitourinary complaints. In part of the workup, the patient had a CT angiogram, and we were asked to comment as to whether or not the patient had a pulmonary embolism. Current vital signs are very stable including her room air saturation of 97%, blood pressure 124/66, heart rate 68, respiratory rate 18, with a normal temperature. Lab data includes a white count of 10.1, normal hemoglobin, hematocrit, and platelet count. D-dimer was 0.88. Sodium was 135, potassium 4.1, chlorides 106, CO2 21, anion gap 8, E1 13, and creatinine 0.96. Troponins were 0.017 0.022 and 0.029. Chest x-ray showed some mild interstitial changes. CT angiogram showed no central pulmonary emboli, but there may be a small left upper lobe branch pulmonary embolism on one of the images. In addition, there was some mediastinal and hilar adenopathy, a 7 mm right upper lobe pulmonary nodule, and some groundglass infiltrates, consistent with either pneumonitis or venous congestion. The patient is seen today 03/28/2021 in follow-up. He is currently resting comfortably in bed. Awake and alert in no acute distress or continues to maintain O2 saturations in the 90s on room air. He did undergo cardiac catheterization today and reported as no significant blockage according to staff. To be treated medically. Remain off heparin. No significant PE. Progress note dated 03/29/2021. The patient was initially seen for chest pain. He was thought to have a pulmonary embolism. The patient underwent cardiac catheterization. That was normal. The patient's initial presentation was that of chest pain, pleuritic in nature. Clinically he is doing well. He denies being short of breath. Denies any additional chest pain. No new laboratory data to speak of. Discharge planning is underway. Objective - Vital Signs Vital signs: Vital Signs Temp 98.0 F 03/29/21 09:55 Pulse 72 03/29/21 09:55 Resp 15 03/29/21 09:55 BP 115/71 03/29/21 09:55 Pulse Ox 96 03/29/21 09:55 Intake & Output 03/28/21 03/29/21 03/29/21 18:59 06:59 18:59 Intake Total 1128.936 240 Balance 1128.936 240 Weight 109.5 kg Intake: IV 150 Intake, IV Titration 258.936 Amount Heparin Sod,Pork in 0.45% 158.936 NaCl 25,000 unit In 0.45 % NaCl 1 250ml.bag @ 18 UNITS/KG/HR 19.595 mls/hr IV .[id number] [facility] Rx#: [id number] Sodium Chloride 0.9% 1, 100 000 ml @ 75 mls/hr IV . [id number] [facility] Rx#:[id number] Oral 720 240 Other: Voiding Method Toilet Toilet Toilet # Voids 3 2 - Exam No acute distress, oriented 3. Room air saturation is 96-97%. No respiratory distress, use of accessory muscles, or conversational dyspnea. HEENT examination is grossly unremarkable. Neck supple. Full range of motion. No adenopathy thyromegaly or neck vein distention. Cardiovascular examination reveals regular rhythm rate. S1-S2 normal. No S3 or S4. No discernible murmur noted. Heart rate 72 bpm. Lungs reveal clear breath sounds. Breath sounds are equal bilaterally. No adventitious lung sounds including wheezes rhonchi or crackles. Abdomen soft bowel sounds are heard. No masses or tenderness. Extremities are intact. No cyanosis clubbing or edema. Skin is without rash or lesion. Neurologic examination is brief but nonfocal. - Labs CBC & Chem 7: 03/27/21 08:03 03/26/21 21:34 Assessment and Plan Assessment: Doubt small left upper lobe subsegmental pulmonary embolism. Chest pain, currently being evaluated by cardiology, status post cardiac catheterization showing patent stent in the mid RCA, and mild disease involving the proximal RCA, and a normal left coronary system. History of hyperlipidemia. History of coronary artery disease, status post catheterization with PCI. History of hypertension. History of ongoing tobacco use with nicotine addiction. Plan: Plan dated 03/27/2021. The computed tomography scan was reviewed, and in my opinion, it's hard to imagine, a clot, in the left upper lobe, but certainly, there are no large central pulmonary emboli. That should not preclude the cardiology service from proceeding with catheterization. We will continue to follow and make recommendations where appropriate. Some recent data would suggest that there is no need to treat the small subsegmental pulmonary emboli. Dopplers of the lower extremities would be beneficial in my opinion. Plan dated 03/29/2021. The patient's cardiac catheterization was reviewed. The patient is apparently being possibly evaluated for discharge by the primary service and by cardiology. We do not think that the abnormality noted in the left upper lobe is of any significance. The patient denies any shortness of breath or any additional chest pain. We will continue to follow make recommendations where appropriate. Prognosis is good. Time with Patient: Less than 30
--- NOTE | 2021-03-29 20:08 | DS ---
DISCHARGE SUMMARY CHIEF COMPLAINT: Left lateral chest wall pain. HISTORY OF PRESENT ILLNESS AND PHYSICAL EXAMINATION: Details of this man's history and physical can be found in the initial workup. LABORATORY STUDIES: While he was in the hospital, he had laboratory studies, details of which can be found in the laboratory section of his chart. COURSE IN THE HOSPITAL: After admission, he was placed on bedrest, started on intravenous fluids and seen by Cardiology. Cardiac exam is normal. His D-dimer is elevated and he might have had a small left lateral upper lobe embolus. He was taken to the [facility] and he had no new or additional coronary artery lesions. It is felt that he could go home on March 29 and he will go home on light activity about the house and his usual diet. He will be placed on apixaban 10 mg twice a day for 21 days and then drop down to 5 mg twice a day. This will be in addition to his aspirin and clopidogrel. FINAL DIAGNOSES: 1. Left upper lobe pulmonary embolism. 2. Coronary artery disease. 3. Hypertension. OPERATIONS: Cardiac cath. CONSULTATIONS: Cardiology. He is improved. MMODL / IJN: [id number] /
[2021-03-29] MEDS ORDERED: APIXABAN 5 MG TAB PO SCH (21:00)
[2021-03-29] MEDS ORDERED: ATORVASTATIN 80 MG TAB PO SCH (21:00)
== END 2021-03-29 14:50 | disposition home or self-care (01) | DRG 176 ==
LOC: EC 19:59 → 3SCARD 23:30
PROVIDERS: ADMIT Family Medicine; ATTEND Family Medicine
PROC: B2111ZZ Fluoroscopy of Multiple Coronary Arteries using Low Osmolar Contrast (ICD-10-PCS; 2021-03-28)
PROC: 4A023N7 Measurement of Cardiac Sampling and Pressure, Left Heart, Percutaneous Approach (ICD-10-PCS; principal; 2021-03-28 11:30)
DX: I26.99 Other pulmonary embolism without acute cor pulmonale (principal); I10 Essential (primary) hypertension; Z20.822 Contact with and (suspected) exposure to COVID-19; E78.5 Hyperlipidemia, unspecified; F17.200 Nicotine dependence, unspecified, uncomplicated; I25.10 Atherosclerotic heart disease of native coronary artery without angina pectoris; Z95.5 Presence of coronary angioplasty implant and graft; Z87.11 Personal history of peptic ulcer disease; Z82.49 Family history of ischemic heart disease and other diseases of the circulatory system; Z79.899 Other long term (current) drug therapy; Z79.82 Long term (current) use of aspirin; Z79.02 Long term (current) use of antithrombotics/antiplatelets; Z79.01 Long term (current) use of anticoagulants; G89.29 Other chronic pain; J44.9 Chronic obstructive pulmonary disease, unspecified; I25.2 Old myocardial infarction; D72.829 Elevated white blood cell count, unspecified; R09.1 Pleurisy; M54.50 Low back pain, unspecified
CPT/HCPCS: 36415; 71046; 71275; 80053; 83735; 84484; 85025; 85379; 85610; 85730; 87635; 93005; 93306; 93454; 94760; 99285

== ENCOUNTER 2021-10-01 09:32 | Inpatient (IN) | payer BC, OTHER ==
[2021-10-01] MEDS ORDERED: ASPIRIN 81 MG PO STA (09:46)
[2021-10-01] MEDS ORDERED: NITROGLYCERIN OINT 1 INCH/GM PACKET TOPICAL STA (09:46)
--- NOTE | 2021-10-01 09:51 | ED ---
General Adult HPI - General Chief complaint: Chest Pain Stated complaint: chest pain Time Seen by Provider: 10/01/21 09:40 Source: patient, RN notes reviewed Mode of arrival: wheelchair Limitations: no limitations - History of Present Illness Initial comments: Patient is a pleasant 50-year-old male presenting to the emergency Department with chest discomfort. Onset of symptoms was a past several days. Symptoms are mostly noticed at work while walking steps. Patient has mild discomfort in his chest with associated palpitations. Patient does become somewhat short of breath. Patient has had some sweating. No nausea. Patient does have previous cardiac stent history however symptoms were not quite similar to this. Symptoms are mild at this time. No radiation. No leg pain or leg swelling. - Related Data Home Medications Medication Instructions Recorded Confirmed lisinopriL [Prinivil] 5 mg PO DAILY 05/09/19 03/26/21 Metoprolol Succinate [Toprol XL] 50 mg PO DAILY 03/26/21 03/26/21 Previous Rx's Medication Instructions Recorded Aspirin 81 mg PO DAILY #30 chew 01/21/19 Atorvastatin [Lipitor] 80 mg PO HS #30 tab 01/21/19 Clopidogrel [Plavix] 75 mg PO DAILY #30 tab 01/21/19 Nitroglycerin Sl Tabs [Nitrostat] 0.4 mg SUBLINGUAL Q5M PRN #25 tab 01/21/19 Apixaban [Eliquis] 10 mg PO BID #60 tab 03/29/21 Allergies Allergy/AdvReac Type Severity Reaction Status Date / Time No Known Allergies Allergy Verified 10/01/21 09:38 Review of Systems ROS Statement: Those systems with pertinent positive or pertinent negative responses have been documented in the HPI. ROS Other: All systems not noted in ROS Statement are negative. Constitutional: Denies: fever Eyes: Denies: eye pain ENT: Denies: ear pain Respiratory: Reports: as per HPI Cardiovascular: Reports: as per HPI, chest pain, palpitations Endocrine: Denies: fatigue Gastrointestinal: Denies: abdominal pain, nausea Genitourinary: Denies: urgency Musculoskeletal: Denies: back pain Skin: Denies: rash Neurological: Denies: weakness Past Medical History Past Medical History: Coronary Artery Disease (CAD), Myocardial Infarction (DE) Additional Past Medical History / Comment(s): Bronchitis, gastric ulcer as a teen, 2017 L leg cellulitis, chronic low back pain, vertigo Last Myocardial Infarction Date:: February 2019 History of Any Multi-Drug Resistant Organisms: None Reported Past Surgical History: Heart Catheterization With Stent Additional Past Surgical History / Comment(s): Egd, colonoscopy Past Anesthesia/Blood Transfusion Reactions: No Reported Reaction Date of Last Stent Placement:: February of 2019 Past Psychological History: No Psychological Hx Reported Smoking Status: Current every day smoker Past Alcohol Use History: None Reported Past Drug Use History: None Reported - Past Family History Father Family Medical History: Coronary Artery Disease (CAD), Myocardial Infarction (DE) Additional Family Medical History / Comment(s): Father of [place] at the age of 71 yrs. Sister(s) Additional Family Medical History / Comment(s): Sister has a heart murmur. General Exam Limitations: no limitations General appearance: alert, in no apparent distress Head exam: Present: normocephalic Eye exam: Present: normal appearance Neck exam: Present: normal inspection Respiratory exam: Present: normal lung sounds bilaterally. Absent: chest wall tenderness Cardiovascular Exam: Present: regular rate, normal rhythm, normal heart sounds Expanded Peripheral pulses: 2+: Radial (R), Radial (L), Posterior Tibialis (R), Posterior Tibialis (L), Dorsalis Pedis (R), Dorsalis Pedis (L) GI/Abdominal exam: Present: soft. Absent: tenderness Extremities exam: Present: normal inspection. Absent: pedal edema, calf tenderness Neurological exam: Present: alert Psychiatric exam: Present: normal affect, normal mood Skin exam: Present: normal color Course Vital Signs 10/01/21 09:35 Temperature 97.9 F Pulse Rate 91 Respiratory 18 Rate Blood Pressure 138/88 O2 Sat by Pulse 96 Oximetry EKG Findings - EKG Comments: EKG Findings:: Sinus rhythm rate 84. MS 183. QRS 94. QT 365. QTC 406. Normal axis. Normal QRS. Nonspecific ST-T. Medical Decision Making - Medical Decision Making Patient reevaluated and resting comfortably in bed. Computed tomography scan will be ordered. Patient updated on results and plan. Dr. malgorzata david paged for admission covering Dr. Salbador lopez. - Lab Data Result diagrams: 10/01/21 09:54 10/01/21 09:54 Lab Results 10/01/21 10/01/21 10/01/21 Range/Units 09:54 09:54 09:54 WBC 7.9 (3.8-10.6) k/uL RBC 5.48 (4.30-5.90) m/uL Hgb 15.9 (13.0-17.5) gm/dL Hct 47.4 (39.0-53.0) % MCV 86.5 (80.0-100.0) fL MCH 29.0 (25.0-35.0) pg MCHC 33.5 (31.0-37.0) g/dL RDW 13.5 (11.5-15.5) % Plt Count 190 (150-450) k/uL MPV 7.5 Neutrophils % 57 % Lymphocytes % 31 % Monocytes % 4 % Eosinophils % 5 % Basophils % 1 % Neutrophils # 4.5 (1.3-7.7) k/uL Lymphocytes # 2.4 (1.0-4.8) k/uL Monocytes # 0.3 (0-1.0) k/uL Eosinophils # 0.4 (0-0.7) k/uL Basophils # 0.1 (0-0.2) k/uL PT 10.0 (9.0-12.0) sec INR 0.9 (<1.2) APTT 26.8 (22.0-30.0) sec D-Dimer 0.75 H (<0.60) mg/L FEU Sodium 136 L (137-145) mmol/L Potassium 4.0 (3.5-5.1) mmol/L Chloride 107 (98-107) mmol/L Carbon Dioxide 21 L (22-30) mmol/L Anion Gap 8 mmol/L BUN 15 (9-20) mg/dL Creatinine 0.87 (0.66-1.25) mg/dL Est GFR (CKD-EPI)AfAm >90 (>60 ml/min/1.73 sqM) Est GFR (CKD-EPI)NonAf >90 (>60 ml/min/1.73 sqM) Glucose 121 H (74-99) mg/dL Calcium 8.5 (8.4-10.2) mg/dL Magnesium 1.9 (1.6-2.3) mg/dL Total Bilirubin 0.6 (0.2-1.3) mg/dL AST 27 (17-59) U/L ALT 32 (4-49) U/L Alkaline Phosphatase 108 (38-126) U/L Troponin I (0.000-0.034) ng/mL Total Protein 6.7 (6.3-8.2) g/dL Albumin 3.8 (3.5-5.0) g/dL 10/01/21 Range/Units 09:54 WBC (3.8-10.6) k/uL RBC (4.30-5.90) m/uL Hgb (13.0-17.5) gm/dL Hct (39.0-53.0) % MCV (80.0-100.0) fL MCH (25.0-35.0) pg MCHC (31.0-37.0) g/dL RDW (11.5-15.5) % Plt Count (150-450) k/uL MPV Neutrophils % % Lymphocytes % % Monocytes % % Eosinophils % % Basophils % % Neutrophils # (1.3-7.7) k/uL Lymphocytes # (1.0-4.8) k/uL Monocytes # (0-1.0) k/uL Eosinophils # (0-0.7) k/uL Basophils # (0-0.2) k/uL PT (9.0-12.0) sec INR (<1.2) APTT (22.0-30.0) sec D-Dimer (<0.60) mg/L FEU Sodium (137-145) mmol/L Potassium (3.5-5.1) mmol/L Chloride (98-107) mmol/L Carbon Dioxide (22-30) mmol/L Anion Gap mmol/L BUN (9-20) mg/dL Creatinine (0.66-1.25) mg/dL Est GFR (CKD-EPI)AfAm (>60 ml/min/1.73 sqM) Est GFR (CKD-EPI)NonAf (>60 ml/min/1.73 sqM) Glucose (74-99) mg/dL Calcium (8.4-10.2) mg/dL Magnesium (1.6-2.3) mg/dL Total Bilirubin (0.2-1.3) mg/dL AST (17-59) U/L ALT (4-49) U/L Alkaline Phosphatase (38-126) U/L Troponin I 0.025 (0.000-0.034) ng/mL Total Protein (6.3-8.2) g/dL Albumin (3.5-5.0) g/dL Disposition Clinical Impression: Chest pain Disposition: ADMITTED IP TO THIS HOSP Is patient prescribed a controlled substance at d/c from ED?: No Referrals: Nicholas Holder DO [Primary Care Provider] - 1-2 days Time of Disposition: 11:03
--- NOTE | 2021-10-01 10:09 | XR ---
EXAMINATION TYPE: XR chest 2V DATE OF EXAM: 10/01/2021 COMPARISON: X-ray dated 03/26/2021 HISTORY: Chest pain TECHNIQUE: Frontal and lateral views of the chest are obtained. FINDINGS: Prominent interstitial lung markings, appreciated previously and could be related to interstitial anthony ma or mild fibrotic changes/interstitial lung disease. Possible subtle small infiltration in the left lower lung zone. Grossly unremarkable lungs otherwise. No sizable pleural effusion or definite pneumothorax. No gross cardiomegaly. No gross aggressive bone lesion. IMPRESSION: As above.
[2021-10-01 10:10] LABS: Basophils # (A) 0.1 k/uL (0-0.2); Basophils % (A) 1 %; Eosinophils # (A) 0.4 k/uL (0-0.7); Eosinophils % (A) 5 %; HCT 47.4 % (39.0-53.0); HGB 15.9 gm/dL (13.0-17.5); Lymphocytes # (A) 2.4 k/uL (1.0-4.8); Lymphocytes % (A) 31 %; MCHC 33.5 g/dL (31.0-37.0); MCV 86.5 fL (80.0-100.0); Mean Platelet Volume 7.5; Monocytes # (A) 0.3 k/uL (0-1.0); Monocytes % (A) 4 %; Neutrophils # (A) 4.5 k/uL (1.3-7.7); Neutrophils % (A) 57 %; Platelet Count 190 k/uL (150-450); RBC 5.48 m/uL (4.30-5.90); RDW 13.5 % (11.5-15.5); WBC 7.9 k/uL (3.8-10.6)
[2021-10-01 10:18] LABS: ALT 32 U/L (4-49); AST 27 U/L (17-59); African American GFR (CKD) >90 (>60 ml/min/1.73 sqM); Albumin 3.8 g/dL (3.5-5.0); Alkaline Phosphatase 108 U/L (38-126); Anion Gap 8 mmol/L; Blood Urea Nitrogen 15 mg/dL (9-20); Calcium 8.5 mg/dL (8.4-10.2); Carbon Dioxide 21 mmol/L (22-30); Chloride 107 mmol/L (98-107); Glucose 121 mg/dL (74-99); INR 0.9 (<1.2); Magnesium 1.9 mg/dL (1.6-2.3); Non-African American GFR(CKD) >90 (>60 ml/min/1.73 sqM); Partial Thromboplastin Time 26.8 sec (22.0-30.0); Sodium 136 mmol/L (137-145); Total Bilirubin 0.6 mg/dL (0.2-1.3); Total Protein 6.7 g/dL (6.3-8.2)
[2021-10-01] MEDS ORDERED: NITROGLYCERIN SL TABS 0.4 MG TAB SUBLINGUAL PRN ×2 (11:03→14:40)
--- NOTE | 2021-10-01 11:52 | CT ---
EXAMINATION TYPE: CT angio chest DATE OF EXAM: 10/01/2021 COMPARISON: CT dated 03/26/2021 HISTORY: Chest Pain CT DLP: 627 mGy.cm. Automated Exposure Control for Dose Reduction was Utilized. TECHNIQUE AND CONTRAST: CTA scan of the thorax is performed with IV Contrast, patient injected with 78 mL of Isovue 370, pulm onary angiogram protocol. MIP Images are created on an independent workstation and reviewed. FINDINGS: Suboptimal CTA with artifactual images and venous contamination. No definite filling defect within th e pulmonary trunk, main pulmonary arteries, lobar and segmental branches to suggest pulmonary embolis m. Subsegmental branches are suboptimally assessed. The pulmonary trunk measures 3.2 cm which may sug gest pulmonary hypertension. Coronary and arterial atherosclerotic calcifications. No sizable pericar dial or pleural effusion. Stable enlarged hilar and mediastinal lymph nodes measuring up to 18 mm in subcarinal group without i nterval progression. Stable 8mm nodule along the transverse fissure. Persistent prominent interstitia l lung markings with diffuse subtle pulmonary infiltration, groundglass opacities and peripheral reti culations, not significantly progressed compared to the previous CT scan. Patent trachea and main bro nchi. Bulky spleen. No gross aggressive bone lesion. IMPRESSION: No major or central pulmonary embolism with the limitation of the artifactual CT scan. Slightly dilat ed pulmonary trunk which may suggest a pulmonary hypertension. The above described pulmonary changes are persistent yet stable and nonspecific. Underlying chronic i nflammatory/infectious process (including atypical infection) or interstitial lung disease cannot be excluded. Recommend clinical correlation, pulmonology consultation and further workup. Other incident al findings as described above.
[2021-10-01] MEDS: NITROGLYCERIN OINT 1 INCH/GM PACKET TOPICAL SCH ×3 (12:23→23:21)
[2021-10-01] MEDS ORDERED: ALBUTEROL NEBULIZED 2.5 MG/3 ML INHALATION PRN (14:40)
--- NOTE | 2021-10-01 15:18 | P.HPIM ---
History of Present Illness H&P Date: 10/01/21 History of Presenting Illness: Patient is a very pleasant 50-year-old male with a past medical history of CAD with previous stents on aspirin and Plavix, hypertension, hyperlipidemia, previous PE on anticoagulation with Eliquis, and chronic low back pain. Patient presented to the emergency department with a chief complaint of chest pain. Patient reports he has been experiencing intermittent chest discomfort on and off for the past week. Patient states today he woke up feeling just fine and drove to work. Patient reports by the time he got to work he was feeling some slight tightness in his chest. Patient states he takes the stairs 5 flights every day to get to his job and this morning he was not even able to get up 1 flight. Patient reports he felt significant tightness throughout his chest, shortness of breath and became diaphoretic. Patient reports he then felt almost a "big thud" in his heart accompanied by a really cold sensation in his chest. Pt states this is when he knew he needed to be evaluated so he left work and drove himself to the hospital. Pt states that he also recently had COVID infection back in July and has since been having problems with shortness of breath with exertion. Patient denies any recent fevers, chills, lightheadedness , dizziness, palpitations, abdominal pain, nausea, vomiting, or experiencing any numbness/tingling/weakness in his extremities. Patient denies missing any of his medications including aspirin, Plavix, and Eliquis. This was seen and fully evaluated in the emergency department. EKG was completed showing normal sinus rhythm at 84 bpm, no ST elevation showing no signs of acute ischemia. Chest x-ray negative for acute cardiopulmonary process showing prominent interstitial lung marking possibly secondary to fibrotic changes/interstitial lung disease (patient did recently recover from Covid 19 virus infection). Initial troponin was 0.025 with repeat troponin of 0.029. CBC and CMP were unremarkable. D- dimer elevated at 0.75. CTA chest negative for pulmonary emboli revealing a slightly dilated pulmonary trunk possibly suggestive of pulmonary hypertension (Patient reports he underwent an echocardiogram at [facility] last week, will send for results). Patient admitted under our services with consultation to cardiology. Review of systems: Pertinent positives and negatives as discussed in HPI, a complete review of systems was performed and all other systems are negative. Physical exam: Vital signs reviewed and stable. General: Nontoxic, no distress and appears stated age. Derm: Skin warm and dry, normal coloration for ethnicity. Head: Atraumatic, normocephalic and symmetric. Eyes: EOMs intact, no lid lag, and anicteric sclera Mouth: no lip lesions, mucus membranes moist Cardiovascular: regular rate and rhythm with normal S1S2, no murmur, positive posterior tibial pulses bilaterally, and cap refill < 2 seconds. Lungs: Respirations even, regular, and unlabored on room air. Lungs CTA bilaterally, no rhonchi, no rales, no wheezing, and no accessory muscle usage. Abdominal: soft, nontender to palpation, no guarding, no appreciable organomegaly Ext: ROM intact. No gross muscle atrophy, no edema, no contractures Neuro: Speech clear, face symmetrical and CN II-XII grossly intact with no noted focal neuro deficits Psych: Alert and oriented to person, place, time, and situation. Appropriate and pleasant affect. Assessment and Plan of Care: Chest pain, rule out acute coronary event -Cardiology consult, appreciate further recommendations -Telemetry monitoring -Trend troponins -Cardiac diet, NPO at midnight -Aspirin, Plavix, atorvastatin,lisinopril, losartan, and metoprolol -Lipid profile with a.m. labs. -Echocardiogram completed 1 week ago at [facility], will send for results -Continue anticoagulation with Eliquis. Hypertension Monitor vital signs and continue daily medication regimen. Hyperlipidemia Continue daily medication regimen with atorvastatin 80 mg nightly. Lipid profile with a.m. labs. History of PE on anticoagulation with Eliquis Continue anticoagulation with Eliquis. The patient is admitted with an anticipated less than 2 midnight stay for evaluation of chest pain. CODE STATUS: Full code DVT prophylaxis: Eliquis Discussed with: Patient and patient's Anticipated discharge date: 1-[address]: Home A total of 40 minutes was spent on the care of this complex patient more than 50% of the time was spent in counseling and care coordination. Ricardo Mcgovern NP rendered care for this patient independently, reviewed the findings and plan as documented in the note above. I did not physically speak with or examine the patient on this date. Past Medical History Past Medical History: Coronary Artery Disease (CAD), Myocardial Infarction (CT) Additional Past Medical History / Comment(s): Bronchitis, gastric ulcer as a teen, 2017 L leg cellulitis, chronic low back pain, vertigo Last Myocardial Infarction Date:: February 2019 History of Any Multi-Drug Resistant Organisms: None Reported Past Surgical History: Heart Catheterization With Stent Additional Past Surgical History / Comment(s): Egd, colonoscopy Past Anesthesia/Blood Transfusion Reactions: No Reported Reaction Date of Last Stent Placement:: February of 2019 Past Psychological History: No Psychological Hx Reported Smoking Status: Current every day smoker Past Alcohol Use History: None Reported Past Drug Use History: None Reported - Past Family History Father Family Medical History: Coronary Artery Disease (CAD), Myocardial Infarction (CT) Additional Family Medical History / Comment(s): Father of [place] at the age of 71 yrs. Sister(s) Additional Family Medical History / Comment(s): Sister has a heart murmur. Mother Family Medical History: Cancer Medications and Allergies Home Medications Medication Instructions Recorded Confirmed Type Aspirin 81 mg PO DAILY #30 chew 01/21/19 10/01/21 Rx Atorvastatin [Lipitor] 80 mg PO HS #30 tab 01/21/19 10/01/21 Rx Clopidogrel [Plavix] 75 mg PO DAILY #30 tab 01/21/19 10/01/21 Rx Nitroglycerin Sl Tabs [Nitrostat] 0.4 mg SUBLINGUAL Q5M PRN #25 tab 01/21/19 10/01/21 Rx lisinopriL [Prinivil] 5 mg PO DAILY 05/09/19 10/01/21 History Metoprolol Succinate [Toprol XL] 50 mg PO DAILY 03/26/21 10/01/21 History Albuterol Inhaler [Ventolin Hfa 2 puff INHALATION RT-QID PRN 10/01/21 10/01/21 History Inhaler] Apixaban [Eliquis] 5 mg PO DAILY 10/01/21 10/01/21 History Ergocalciferol [Vitamin D2 (1250 1,250 mcg PO MO 10/01/21 10/01/21 History Mcg = 72451 Iu)] Losartan [Cozaar] 25 mg PO DAILY 10/01/21 10/01/21 History Allergies Allergy/AdvReac Type Severity Reaction Status Date / Time No Known Allergies Allergy Verified 10/01/21 11:08 Physical Exam Osteopathic Statement: *. No significant issues noted on an osteopathic structural exam other than those noted in the History and Physical/Consult. Vitals: Vital Signs Temp Pulse Resp BP Pulse Ox 10/01/21 09:35 97.9 F 91 18 138/88 96 Intake and Output 09/30/21 10/01/21 10/01/21 22:59 06:59 14:59 Other: Weight 108.409 kg Results CBC & Chem 7: 10/01/21 09:54 10/01/21 09:54 Labs: Abnormal Lab Results - Last 24 Hours (Table) 10/01/21 10/01/21 Range/Units 09:54 09:54 D-Dimer 0.75 H (<0.60) mg/L FEU Sodium 136 L (137-145) mmol/L Carbon Dioxide 21 L (22-30) mmol/L Glucose 121 H (74-99) mg/dL
[2021-10-01] MEDS: ERGOCALCIFEROL 1,250 MCG (50,000 IU) CAPSULE PO SCH ×2 (15:19→18:58)
[2021-10-01] MEDS: ATORVASTATIN 80 MG TAB PO SCH (21:12)
[2021-10-02] MEDS: NITROGLYCERIN OINT 1 INCH/GM PACKET TOPICAL SCH ×2 (06:01→12:55)
[2021-10-02] MEDS ORDERED: HEPARIN SODIUM,PORCINE 10,000 UNIT in SODIUM CHLORIDE 0.9% 1,000 ML IRRIGATION PRN (07:00)
[2021-10-02] MEDS ORDERED: HEPARIN SODIUM,PORCINE 2,500 UNIT in SODIUM CHLORIDE 0.9% 250 ML IRRIGATION PRN (07:00)
[2021-10-02] MEDS ORDERED: lisinopriL 5 MG TAB PO SCH (09:00)
[2021-10-02] MEDS ORDERED: ASPIRIN 325 MG TAB PO SCH (09:00)
[2021-10-02] MEDS ORDERED: APIXABAN 5 MG TAB PO SCH (09:00)
[2021-10-02] MEDS ORDERED: ALPRAZolam 0.5 MG TAB PO PRN (09:09)
[2021-10-02] MEDS ORDERED: ALPRAZolam 0.25 MG TAB PO PRN (09:09)
[2021-10-02] MEDS: LOSARTAN 25 MG TAB PO SCH (09:22)
[2021-10-02] MEDS: METOPROLOL SUCCINATE (ER) 50 MG TAB.ER.24H PO SCH (09:22)
[2021-10-02] MEDS: CLOPIDOGREL 75 MG TAB PO SCH (09:22)
[2021-10-02] MEDS: ASPIRIN 81 MG PO SCH (09:22)
--- NOTE | 2021-10-02 10:20 | P.CRDCN ---
History of Present Illness History of present illness: This is a 50 year old male with a past medical history significant for coronary artery disease with PCI to RCA in 2019, hypertension, hyperlipidemia, pulmonary embolism, Covid-19 in July. Patient used to follow with Dr. Sandy. We have been asked to see the patient in consultation for chest pain. Patient presents to the ER with complaints of chest discomfort. Started yesterday early afternoon at work. He describes as a tightness, pressure and pounding. It is located in the left side of his chest and mid sternal area of his chest. He states that he began to have chest tightness after he walked 5 flight of stairs. He states the pain continued and was intermittent throughout the day. He has associated shortness of breath and some diaphoresis. He felt a pounding in his chest and had a cold sensation across his chest. He presented to the emergency department for further evaluation. He denies any leg numbness, dizziness, syncope and near syncope, nausea, vomiting. He did have a Lexiscan stress test scheduled on 09/28/2021 in the office however he missed this appointment. He did recently undergo echocardiogram in the office on 09/21/2021 which revealed EF 50%, moderate LVH, mild mitral regurgitation and moderate to severe aortic stenosis with a peak/mean gradient of 56 mmHg/35 mmHg, mild tricuspid regurgitation, mild pulmonary hypertension. DIAGNOSTICS -EKG reveals sinus mechanism HR 84, with nonspecific ST-T wave abnormalities, occasional PVCs. Prior EKG in 2020 with similar findings -Chest CT revealed no major central pulmonary embolism, etc. dilated pulmonary trunk with may suggest pulmonary hypertension, coronary arterial atherosclerotic calcifications. Persistent prominent interstitial lung markings, groundglass opacities, peripheral deterioration not significantly progressed compared to previous computed tomography scan -Laboratory data: CBC unremarkable, D-dimer 0.75, Sodium 136, K 4.0, BUN 15 sCr 0.87, Mag 1.9, Troponin negative x2-->0.04-->0.039 -Current home cardiac medications include lisinopril 5 mg daily, metoprolol succinate 50 mg daily, Plavix 75 mg daily, Lipitor 80 mg daily, aspirin 81 mg daily, losartan 25mg daily -Recent cardiac catheterization 03/28/21 revealed patent stent in the mid RCA, mild disease involving the proximal RCA 30%, normal left coronary system. Left heart catheterization was not performed. -Cardiac catheterization January 2018 with aspiration thrombectomy from the right coronary artery, successful stenting of the proximal right coronary artery and successful stenting of the mid right coronary artery REVIEW OF SYSTEMS: At the time of my exam: CONSTITUTIONAL: Denies fever or chills. HEENT: Denies blurred vision, vision changes, or eye pain. Denies hemoptysis CARDIOVASCULAR: Denies chest pain. Denies orthopnea. Denies PND. Denies palpitations RESPIRATORY: Denies shortness of breath. GASTROINTESTINAL: Denies abdominal pain. Denies nausea or vomiting. HEMATOLOGIC: Denies bleeding disorders. GENITOURINARY: Denies any blood in urine. SKIN: Denies pruitis. Denies rash. PHYSICAL EXAM: VITAL SIGNS: Reviewed. GENERAL: Well-developed in no acute distress. HEENT: Head is normocephalic. Pupils are equal, round. Sclerae anicteric. Mucous membranes of the mouth are moist. Neck supple. No JVD or thyromegaly LUNGS: Respirations even and unlabored. Lungs essentially clear to auscultation bilaterally. HEART: Regular rate and rhythm. S1 and S2 heard. Systolic murmur noted at base. ABDOMEN: Soft. Nondistended. Nontender. EXTREMITIES: Normal range of motion. No clubbing or cyanosis. Peripheral pulses intact. No lower extremity edema NEUROLOGIC: Awake and alert. Oriented x 3. ASSESSMENT: NSTEMI History of pulmonary embolism Coronary artery disease with previous PCI to RCA 2018 Hypertension Hyperlipidemia Nicotine dependence PLAN: Hold Eliquis and start IV heparin Continue Aspirin, statin, Plavix, Lisinopril, losartan, metoprolol succinate PRN nitroglycerin and Nitroglycerin ointment ordered Recommend cardiac catheterization, patient is agreeable. Cardiac catheterization tomorrow with Dr. Jin secondary to patient taking Eliquis. NPO after midnight I have discussed the risks, benefits and alternative therapies for the above- mentioned procedure and for both sedation/analgesia as well as necessary blood product administration, if indicated, as they pertain to this patient. The patient has indicated understanding and acceptance of the risks and procedures discussed. Questions have been answered appropriately and he is agreeable to move forward with the above-stated procedure. Further recommendations based on clinical course Nurse practitioner note has been reviewed by physician. Signing provider agrees with the documented findings, assessment, and plan of care. Past Medical History Past Medical History: Coronary Artery Disease (CAD), Myocardial Infarction ([place]) Additional Past Medical History / Comment(s): Bronchitis, gastric ulcer as a teen, 2017 L leg cellulitis, chronic low back pain, vertigo Last Myocardial Infarction Date:: February 2019 History of Any Multi-Drug Resistant Organisms: None Reported Past Surgical History: Heart Catheterization With Stent Additional Past Surgical History / Comment(s): Egd, colonoscopy Past Anesthesia/Blood Transfusion Reactions: No Reported Reaction Date of Last Stent Placement:: February of 2019 Past Psychological History: No Psychological Hx Reported Smoking Status: Current every day smoker Past Alcohol Use History: None Reported Past Drug Use History: None Reported - Past Family History Father Family Medical History: Coronary Artery Disease (CAD), Myocardial Infarction ([place]) Additional Family Medical History / Comment(s): Father of [place] at the age of 71 yrs. Sister(s) Additional Family Medical History / Comment(s): Sister has a heart murmur. Mother Family Medical History: Cancer Medications and Allergies Home Medications Medication Instructions Recorded Confirmed Type Aspirin 81 mg PO DAILY #30 chew 01/21/19 10/01/21 Rx Atorvastatin [Lipitor] 80 mg PO HS #30 tab 01/21/19 10/01/21 Rx Clopidogrel [Plavix] 75 mg PO DAILY #30 tab 01/21/19 10/01/21 Rx Nitroglycerin Sl Tabs [Nitrostat] 0.4 mg SUBLINGUAL Q5M PRN #25 tab 01/21/19 10/01/21 Rx lisinopriL [Prinivil] 5 mg PO DAILY 05/09/19 10/01/21 History Metoprolol Succinate [Toprol XL] 50 mg PO DAILY 03/26/21 10/01/21 History Albuterol Inhaler [Ventolin Hfa 2 puff INHALATION RT-QID PRN 10/01/21 10/01/21 History Inhaler] Apixaban [Eliquis] 5 mg PO DAILY 10/01/21 10/01/21 History Ergocalciferol [Vitamin D2 (1250 1,250 mcg PO MO 10/01/21 10/01/21 History Mcg = 82476 Iu)] Losartan [Cozaar] 25 mg PO DAILY 10/01/21 10/01/21 History Allergies Allergy/AdvReac Type Severity Reaction Status Date / Time No Known Allergies Allergy Verified 10/01/21 11:08 Physical Exam Vitals: Vital Signs Temp Pulse Resp BP Pulse Ox 10/01/21 09:35 97.9 F 91 18 138/88 96 Intake and Output 09/30/21 10/01/21 10/01/21 22:59 06:59 14:59 Other: Weight 108.409 kg Results 10/01/21 09:54 10/01/21 09:54 Cardiac Enzymes 10/01/21 10/01/21 Range/Units 09:54 09:54 AST 27 (17-59) U/L Troponin I 0.025 (0.000-0.034) ng/mL Coagulation 10/01/21 Range/Units 09:54 PT 10.0 (9.0-12.0) sec APTT 26.8 (22.0-30.0) sec CBC 10/01/21 Range/Units 09:54 WBC 7.9 (3.8-10.6) k/uL RBC 5.48 (4.30-5.90) m/uL Hgb 15.9 (13.0-17.5) gm/dL Hct 47.4 (39.0-53.0) % Plt Count 190 (150-450) k/uL Comprehensive Metabolic Panel 10/01/21 Range/Units 09:54 Sodium 136 L (137-145) mmol/L Potassium 4.0 (3.5-5.1) mmol/L Chloride 107 (98-107) mmol/L Carbon Dioxide 21 L (22-30) mmol/L BUN 15 (9-20) mg/dL Creatinine 0.87 (0.66-1.25) mg/dL Glucose 121 H (74-99) mg/dL Calcium 8.5 (8.4-10.2) mg/dL AST 27 (17-59) U/L ALT 32 (4-49) U/L Alkaline Phosphatase 108 (38-126) U/L Total Protein 6.7 (6.3-8.2) g/dL Albumin 3.8 (3.5-5.0) g/dL Current Medications Generic Name Dose Route Start Last Admin Trade Name Freq PRN Reason Stop Dose Admin Aspirin 325 mg 10/02/21 09:00 Aspirin 325 Mg Tab PO DAILY BETHANY Nitroglycerin 0.4 mg 10/01/21 11:03 Nitroglycerin Sl Tabs 0.4 Mg Tab SUBLINGUAL Q5M PRN Chest Pain Nitroglycerin 1 inch 10/01/21 12:00 Nitroglycerin Oint 1 Inch/Gm Packet TOPICAL Q6HR BETHANY Sodium Chloride 10 ml 10/01/21 21:00 Sodium Chloride 0.9% Flush 10 Ml Syringe IV BID BETHANY Intake and Output 09/30/21 10/01/21 10/01/21 22:59 06:59 14:59 Other: Weight 108.409 kg Patient Weight 10/02/21 06:59 Weight 108.409 kg 10/01/21 09:54 10/01/21 09:54
[2021-10-02] MEDS: HEPARIN SOD,PORK IN 0.45% NACL 25,000 UNIT in 0.45% NACL 1 250ML.BAG IV SCH (11:07)
[2021-10-02 11:32] LABS: INR 0.9 (<1.2); Partial Thromboplastin Time 26.4 sec (22.0-30.0); Prothrombin Time 10.3 sec (9.0-12.0)
[2021-10-02] MEDS ORDERED: SODIUM CHLORIDE 0.9% 1,000 ML IV ONE (13:55)
--- NOTE | 2021-10-02 14:43 | P.PN ---
Subjective Progress Note Date: 10/02/21 Hospital course: Patient is a very pleasant 50-year-old male with a past medical history of CAD with previous stents on aspirin and Plavix, hypertension, hyperlipidemia, previous PE on anticoagulation with Eliquis, and chronic low back pain. Patient presented to the emergency department with a chief complaint of chest pain. Patient reports he has been experiencing intermittent chest discomfort on and off for the past week. Patient states today he woke up feeling just fine and d rove to work. Patient reports by the time he got to work he was feeling some slight tightness in his chest. Patient states he takes the stairs 5 flights every day to get to his job and this morning he was not even able to get up 1 flight. Patient reports he felt significant tightness throughout his chest, shortness of breath and became diaphoretic. Patient reports he then felt almost a "big thud" in his heart accompanied by a really cold sensation in his chest. Pt states this is when he knew he needed to be evaluated so he left work and drove himself to the hospital. Pt states that he also recently had COVID infection back in July and has since been having problems with shortness of breath with exertion. Patient denies any recent fevers, chills, lightheadedness, dizziness, palpitations, abdominal pain, nausea, vomiting, or experiencing any numbness/tingling/weakness in his extremities. Patient denies missing any of his medications including aspirin, Plavix, and Eliquis. This was seen and fully evaluated in the emergency department. EKG was completed showing normal sinus rhythm at 84 bpm, no ST elevation showing no signs of acute ischemia. Chest x-ray negative for acute cardiopulmonary process showing prominent interstitial lung marking possibly secondary to fibrotic changes/interstitial lung disease (patient did recently recover from Covid 19 virus infection). Initial troponin was 0.025 with repeat troponin of 0.029. CBC and CMP were unremarkable. D-dimer elevated at 0.75. CTA chest negative for pulmonary emboli revealing a slightly dilated pulmonary trunk possibly suggestive of pulmonary hypertension (Patient reports he underwent an echocardiogram at [facility] last week, will send for results). Patient admitted under our services with consultation to cardiology. Physical exam: Patient was monitored throughout the night. Troponins increased from 0.025- 0.029, 0.040, and 0.039. Patient diagnosed as NSTEMI and was evaluated by cardiology. Eliquis held at this time and patient was started on IV anticoagulant with heparin with plans to undergo cardiac catheterization tomorrow morning. Upon assessment at bedside this morning patient reports feeling great this morning and denies having any chest pain, palpitations, shortness of breath, or experiencing any numbness/tingling/weakness in his extremities. Patient was updated on plan and all questions answered at this time. Lipid profile resulting showing elevated triglycerides of 288.0, LDL is 57.60 and low HDL of 29.40. Patient does take atorvastatin 80 mg nightly and fenofibrate was added in addition to his daily medication regimen to aid in lowering triglyceride levels. Vital signs reviewed and stable. General: Nontoxic, no distress and appears stated age. Derm: Skin warm and dry, normal coloration for ethnicity. Head: Atraumatic, normocephalic and symmetric. Eyes: EOMs intact, no lid lag, and anicteric sclera Mouth: no lip lesions, mucus membranes moist Cardiovascular: regular rate and rhythm with normal S1S2, systolic murmur positive posterior tibial pulses bilaterally, and cap refill < 2 seconds. Lungs: Respirations even, regular, and unlabored on room air. Lungs CTA bilaterally, no rhonchi, no rales, no wheezing, and no accessory muscle usage. Abdominal: soft, nontender to palpation, no guarding, no appreciable organomegaly Ext: ROM intact. No gross muscle atrophy, no edema, no contractures Neuro: Speech clear, face symmetrical and CN II-XII grossly intact with no noted focal neuro deficits Psych: Alert and oriented to person, place, time, and situation. Appropriate and pleasant affect. Assessment and Plan of Care: NSTEMI -Cardiology following, plans for cardiac catheterization tomorrow morning. -Telemetry monitoring -Troponins increased from 0.025-0.029, 0.040, and 0.039 -Cardiac diet, NPO at midnight -Aspirin, Plavix, atorvastatin,lisinopril, losartan, and metoprolol -Lipid profile revealed hypertriglyceridemia with triglycerides of 288, fenofibrate added on to daily medication regimen with atorvastatin 80 mg nightly. -Echocardiogram completed in office at [facility] reported EF of 50% with moderate left ventricular hypertrophy, mild mitral regurgitation, moderate to severe aortic stenosis, mild tricuspid regurgitation, and mild pulmonary hypertension. -Eliquis was held and patient started on heparin infusion with plans to undergo cardiac catheterization tomorrow morning.. Hypertension Monitor vital signs and continue daily medication regimen. Hyperlipidemia Continue daily medication regimen with atorvastatin 80 mg nightly. Lipid profile revealed hypertriglyceridemia with triglycerides of 288.0. Pat ient started on fenofibrate in addition to daily atorvastatin. History of PE on anticoagulation with Eliquis Resume anticoagulation with Eliquis once off of heparin infusion and when cleared by cardiology. CODE STATUS: Full code DVT prophylaxis: Heparin Discussed with: Patient and patient's Anticipated discharge date: 1-[address]: Home A total of 38 minutes was spent on the care of this complex patient more than 50% of the time was spent in counseling and care coordination. Objective - Vital Signs Vital signs: Vital Signs Temp 98.3 F 10/02/21 13:40 Pulse 76 10/02/21 14:28 Resp 18 10/02/21 14:28 BP 100/63 10/02/21 14:28 Pulse Ox 96 10/02/21 13:40 Intake & Output 10/01/21 10/02/21 10/02/21 18:59 06:59 18:59 Intake Total 0 Balance 0 Weight 108.409 kg Intake: Oral 0 Other: Voiding Method Toilet # Voids 1 1 - Labs CBC & Chem 7: 10/01/21 09:54 10/01/21 09:54 Labs: Abnormal Lab Results - Last 24 Hours (Table) 10/01/21 10/01/21 10/01/21 Range/Units 09:54 15:27 19:04 Troponin I 0.040 H* 0.039 H* (0.000-0.034) ng/mL Triglycerides 288.00 H (0.00-149.00) mg/dL VLDL Cholesterol, Calc 57.60 H (5.00-40.00) mg/dL HDL Cholesterol 29.40 L (40.00-60.00) mg/dL
[2021-10-02] MEDS: HEPARIN SODIUM 1,000 UN/ML (10ML VL) IV PRN (17:17)
[2021-10-02] MEDS: ATORVASTATIN 80 MG TAB PO SCH (20:10)
[2021-10-03] MEDS: HEPARIN SODIUM 1,000 UN/ML (10ML VL) IV PRN ×2 (00:42→07:44)
[2021-10-03] MEDS: SODIUM CHLORIDE 0.9% 1,000 ML in EMPTY BAG 1 BAG IV SCH ×2 (00:44→08:07)
[2021-10-03 06:59] LABS: Basophils # (A) 0.1 k/uL (0-0.2); Basophils % (A) 1 %; Eosinophils # (A) 0.5 k/uL (0-0.7); Eosinophils % (A) 7 %; HCT 45.5 % (39.0-53.0); HGB 15.1 gm/dL (13.0-17.5); Lymphocytes % (A) 37 %; MCH 29.3 pg (25.0-35.0); MCHC 33.3 g/dL (31.0-37.0); MCV 88.1 fL (80.0-100.0); Mean Platelet Volume 7.6; Monocytes # (A) 0.3 k/uL (0-1.0); Monocytes % (A) 4 %; Neutrophils % (A) 49 %; Platelet Count 186 k/uL (150-450); RBC 5.16 m/uL (4.30-5.90); RDW 13.6 % (11.5-15.5); WBC 8.2 k/uL (3.8-10.6)
[2021-10-03 07:06] VITALS: RESP 18
[2021-10-03 07:11] LABS: African American GFR (CKD) >90 (>60 ml/min/1.73 sqM); Anion Gap 3 mmol/L; Blood Urea Nitrogen 10 mg/dL (9-20); Calcium 8.1 mg/dL (8.4-10.2); Carbon Dioxide 23 mmol/L (22-30); Chloride 111 mmol/L (98-107); Glucose 114 mg/dL (74-99); Non-African American GFR(CKD) >90 (>60 ml/min/1.73 sqM); Potassium 4.3 mmol/L (3.5-5.1); Sodium 137 mmol/L (137-145)
[2021-10-03] MEDS: HEPARIN SOD,PORK IN 0.45% NACL 25,000 UNIT in 0.45% NACL 1 250ML.BAG IV SCH (07:42)
[2021-10-03] MEDS ORDERED: VERAPAMIL 2.5 MG/ML 2 ML AMP ONE (08:07)
[2021-10-03] MEDS: CLOPIDOGREL 75 MG TAB PO SCH (08:14)
[2021-10-03] MEDS: LOSARTAN 25 MG TAB PO SCH (08:14)
[2021-10-03] MEDS: METOPROLOL SUCCINATE (ER) 50 MG TAB.ER.24H PO SCH (08:14)
[2021-10-03] MEDS: ASPIRIN 81 MG PO SCH (08:14)
[2021-10-03] MEDS ORDERED: IV FLUID CONTINUATION 1,000 ML IV ONE ×2 (08:25)
[2021-10-03] MEDS ORDERED: fentaNYL (PF) 50 MCG/ML 2 ML AMP ONE (08:34)
[2021-10-03] MEDS ORDERED: HEPARIN SODIUM 1,000 UN/ML (10ML VL) ONE (08:34)
[2021-10-03] MEDS ORDERED: MIDAZOLAM 2 MG/2 ML VIAL IV ONE (08:47)
[2021-10-03] MEDS ORDERED: LIDOCAINE 1% INJ 10MG/ML (20 ML MDV) SQ ONE (08:47)
[2021-10-03] MEDS ORDERED: VERAPAMIL SYRINGE (5 MG/10 ML) INTRAARTER ONE (08:48)
[2021-10-03] MEDS ORDERED: fentaNYL (PF) 50 MCG/ML 2 ML AMP IV ONE (08:56)
[2021-10-03] MEDS ORDERED: FENOFIBRATE 160 MG TAB PO SCH (09:00)
[2021-10-03] MEDS ORDERED: IOPAMIDOL-370 125ML BTL INJ ONE (09:10)
[2021-10-03] MEDS ORDERED: RX INFO: IV CONTRAST WAS GIVEN 1 EACH MISC MISCELLANE PRN (09:19)
--- NOTE | 2021-10-03 09:23 | P.PCN ---
Date of Procedure: 10/03/21 Operative Findings: CARDIAC CATHETERIZATION PERFORMING PHYSICIAN: Lazaro Sandy MD, RPVI PROCEDURE PERFORMED: 1. Selective right and left coronary angiogram 2. Ultrasound-guided access of the right radial artery INDICATION: This is a 50-year-old gentleman with history of coronary artery disease and prior stenting of the RCA presented to the hospital with chest discomfort and ruled in for acute coronary event COMPLICATION: None APPROACH: Right radial artery LEVEL OF SEDATION: Moderate with a sedation length of 16 minutes PROCEDURE DESCRIPTION: After obtaining an informed consent, the patient was brought to cardiac organic lab worker. Local anesthesia was performed using lidocaine subcutaneously. The right radial artery was cannulated using Seldinger technique, the guidewire passed easily, following that we advanced a 5-[place] sheath dilator assembly, the wire and dilator were removed and sheath was flushed. Following that, 2 mg of verapamil. Selective right and left coronary angiogram using a 6-[place] JR4 and JL 3.5 catheters. The procedure was completed there was no complication. SELECTIVE CORONARY ANGIOGRAM: The right coronary artery: Is a large caliber vessel and dominant vessel. The proximal RCA has disease appears to be in the range of 30-40% only. The mid RCA is a stented and the stent is patent. The RCA distally bifurcates into PDA and PLV branches and both appeared to be angiographically normal. Left main: It is angiographically normal. Bifurcates into a CXR and LAD The left circumflex: Is a large caliber vessel nondominant vessel. The proximal circumflex is ang iographically normal. It gives rises into the first obtuse marginal branch which bifurcates into 2 subbranches. First OM is angiographically normal. The circumflex distally appears to have mild disease only The left anterior descending artery: Is a large caliber vessel. The LAD is angiographically normal. Gives rises into the first and second diagonal branches both appeared to be angiographically normal. CONCLUSION: 1. Mild disease involving the proximal RCA. Patent stent in the mid RCA 2. Normal left-sided filling pressure POSTPROCEDURE MANAGEMENT: Medical treatment and follow-up with the patient
[2021-10-03 09:24] VITALS: TEMP 97.6
[2021-10-03] MEDS ORDERED: SODIUM CHLORIDE 0.9% 1,000 ML IV SCH (09:30)
[2021-10-03 10:19] LABS: INR 0.93 (0.90-1.11); Prothrombin Time 10.5 sec (9.9-11.9)
[2021-10-03 13:08] VITALS: BP 128/69; PULSE 82
--- NOTE | 2021-10-03 19:24 | P.DS ---
Providers Date of admission: 10/02/21 11:46 Expected date of discharge: 10/03/21 Attending physician: Ciarra Joseph DO Consults: 10/01/21 11:03 Consult Physician Urgent Consulting Provider: Lazaro Sandy Consult Reason/Comments: cp Do you want consulting provider notified?: Yes Primary care physician: ERNESTO Javed Hospital Course: Discharge Diagnosis: Chest pain, acute coronary event ruled out Hypertension, Monitor vital signs and continue daily medication regimen. Hyperlipidemia, continue daily medication regimen with atorvastatin 80 mg nightly and fenofibrate also added to daily medication regimen secondary to elevated triglycerides of 280.00 History of PE on anticoagulation with Eliquis, Continue anticoagulation with Eliquis. Hospital Course: Patient is a very pleasant 50-year-old male with a past medical history of CAD with previous stents on aspirin and Plavix, hypertension, hyperlipidemia, previous PE on anticoagulation with Eliquis, and chronic low back pain. Patient presented to the emergency department with a chief complaint of chest pain. Patient reports he has been experiencing intermittent chest discomfort on and off for the past week. Patient states today he woke up feeling just fine and drove to work. Patient reports by the time he got to work he was feeling some slight tightness in his chest. Patient states he takes the stairs 5 flights every day to get to his job and this morning he was not even able to get up 1 flight. Patient reports he felt significant tightness throughout his chest, shortness of breath and became diaphoretic. Patient reports he then felt almost a "big thud" in his heart accompanied by a really cold sensation in his chest. Pt states this is when he knew he needed to be evaluated so he left work and drove himself to the hospital. Pt states that he also recently had COVID infection back in July and has since been having problems with shortness of breath with exertion. Patient denies any recent fevers, chills, lightheadedness, dizziness, palpitations, abdominal pain, nausea, vomiting, or experiencing any numbness/tingling/weakness in his extremities. Patient denies missing any of his medications including aspirin, Plavix, and Eliquis. This was seen and fully evaluated in the emergency department. EKG was completed showing normal sinus rhythm at 84 bpm, no ST elevation showing no signs of acute ischemia. Chest x-ray negative for acute cardiopulmonary process showing prominent interstitial lung marking possibly secondary to fibrotic changes/interstitial lung disease (patient did recently recover from Covid 19 virus infection). Initial troponin was 0.025 with repeat troponin of 0.029. CBC and CMP were unremarkable. D-dimer elevated at 0.75. CTA chest negative for pulmonary emboli revealing a slightly dilated pulmonary trunk possibly suggestive of pulmonary hypertension (Patient reports he underwent an echocardiogram at [facility] last week, will send for results). Patient admitted under our services with consultation to cardiology. Troponins trended throughout the night resulting at 0.025, 0.029, 0.040, and 0.039. Patient underwent cardiac catheterization revealing mild disease involving the proximal RCA with a patent stent in the mid RCA and normal left-sided filling pressures. Cardiology recommended outpatient follow-up and continued medical treatment. Patient's chest pain and fully subsided and he denies having any other complaints or concerns at this time. Patient is medically stable for discharge home and to follow up outpatient with PCP and cardiology as recommended. Review of systems: Pertinent positives and negatives as discussed in HPI, a complete review of systems was performed and all other systems are negative. Physical exam: Vital signs reviewed and stable. General: Nontoxic, no distress and appears stated age. Derm: Skin warm and dry, normal coloration for ethnicity. Head: Atraumatic, normocephalic and symmetric. Eyes: EOMs intact, no lid lag, and anicteric sclera Mouth: no lip lesions, mucus membranes moist Cardiovascular: regular rate and rhythm with normal S1S2, no murmur, positive posterior tibial pulses bilaterally, and cap refill < 2 seconds. Lungs: Respirations even, regular, and unlabored on room air. Lungs CTA bilaterally, no rhonchi, no rales, no wheezing, and no accessory muscle usage. Abdominal: soft, nontender to palpation, no guarding, no appreciable organomegaly Ext: ROM intact. No gross muscle atrophy, no edema, no contractures Neuro: Speech clear, face symmetrical and CN II-XII grossly intact with no noted focal neuro deficits Psych: Alert and oriented to person, place, time, and situation. Appropriate and pleasant affect. A total of 38 minutes of time were spent preparing this complex discharge summary. Pt was discharged on 10/03/21 at 11:24 AM Patient Condition at Discharge: Stable Plan - Discharge Summary Discharge Rx Participant: No New Discharge Prescriptions: New Fenofibrate [Lofibra] 160 mg PO DAILY 30 Days #30 tab Continue Aspirin 81 mg PO DAILY #30 chew Atorvastatin [Lipitor] 80 mg PO HS #30 tab Nitroglycerin Sl Tabs [Nitrostat] 0.4 mg SUBLINGUAL Q5M PRN #25 tab PRN Reason: Chest Pain Clopidogrel [Plavix] 75 mg PO DAILY #30 tab Metoprolol Succinate [Toprol XL] 50 mg PO DAILY Ergocalciferol [Vitamin D2 (1250 Mcg = 17532 Iu)] 1,250 mcg PO MO Albuterol Inhaler [Ventolin Hfa Inhaler] 2 puff INHALATION RT-QID PRN PRN Reason: Shortness Of Breath Apixaban [Eliquis] 5 mg PO DAILY Losartan [Cozaar] 25 mg PO DAILY Discontinued lisinopriL [Prinivil] 5 mg PO DAILY Discharge Medication List Aspirin 81 mg PO DAILY #30 chew 01/21/19 [Rx] Atorvastatin [Lipitor] 80 mg PO HS #30 tab 01/21/19 [Rx] Clopidogrel [Plavix] 75 mg PO DAILY #30 tab 01/21/19 [Rx] Nitroglycerin Sl Tabs [Nitrostat] 0.4 mg SUBLINGUAL Q5M PRN #25 tab 01/21/19 [Rx] Metoprolol Succinate [Toprol XL] 50 mg PO DAILY 03/26/21 [History] Albuterol Inhaler [Ventolin Hfa Inhaler] 2 puff INHALATION RT-QID PRN 10/01/21 [History] Apixaban [Eliquis] 5 mg PO DAILY 10/01/21 [History] Ergocalciferol [Vitamin D2 (1250 Mcg = 03140 Iu)] 1,250 mcg PO MO 10/01/21 [History] Losartan [Cozaar] 25 mg PO DAILY 10/01/21 [History] Fenofibrate [Lofibra] 160 mg PO DAILY 30 Days #30 tab 10/03/21 [Rx] Follow up Appointment(s)/Referral(s): Nicholas Holder DO [Doctor of Osteopathic Medicine] - 1-2 days Gonzales Jin MD [STAFF PHYSICIAN] - 10/10/21 3:30 pm Patient Instructions/Handouts: *Surgery [facility] - After Heart Catheterization - [employer] Instructions Activity/Diet/Wound Care/Special Instructions: Activity: As tolerated. Take breaks as needed. Diet: Heart healthy and carb consistent diet. Avoid salts, or foods with hidden salts such as canned or boxed foods and frozen dinners. Extra salt makes your heart work harder and traps the fluid in your body for longer. Special Instructions: Take all of your medications as directed and remember to keep all of your doctor's appointments and follow-up as needed. It is very important for you to follow up with cardiology as you'll need to undergo a transesophageal echocardiogram (YASH) which after discussion with cardiology is planned to be done on an outpatient basis. Thank you for allowing us to participate in your care, it was truly a pleasure having you for our patient!!! Discharge Disposition: HOME SELF-CARE
[2021-10-04] MEDS ORDERED: APIXABAN 5 MG TAB PO SCH (09:00)
== END 2021-10-03 14:27 | disposition home or self-care (01) | DRG 287 ==
LOC: EC 09:32 → 6NMEDSUR 11:03 → OBSVTOIN 10-02 11:46
PROVIDERS: ADMIT Internal Medicine; ATTEND Internal Medicine
PROC: B2111ZZ Fluoroscopy of Multiple Coronary Arteries using Low Osmolar Contrast (ICD-10-PCS; principal; 2021-10-03 08:30)
PROC: 4A023N7 Measurement of Cardiac Sampling and Pressure, Left Heart, Percutaneous Approach (ICD-10-PCS; principal; 2021-10-03 08:30)
DX: R07.9 Chest pain, unspecified (principal); Z28.311 Partially vaccinated for COVID-19; F17.210 Nicotine dependence, cigarettes, uncomplicated; E78.5 Hyperlipidemia, unspecified; I10 Essential (primary) hypertension; I25.10 Atherosclerotic heart disease of native coronary artery without angina pectoris; I25.2 Old myocardial infarction; E78.1 Pure hyperglyceridemia; M54.9 Dorsalgia, unspecified; I27.20 Pulmonary hypertension, unspecified; I08.3 Combined rheumatic disorders of mitral, aortic and tricuspid valves; G89.29 Other chronic pain; I49.3 Ventricular premature depolarization; Z86.16 Personal history of COVID-19; Z79.01 Long term (current) use of anticoagulants; Z79.02 Long term (current) use of antithrombotics/antiplatelets; Z79.82 Long term (current) use of aspirin; Z79.899 Other long term (current) drug therapy; Z82.49 Family history of ischemic heart disease and other diseases of the circulatory system; Z86.711 Personal history of pulmonary embolism; Z87.11 Personal history of peptic ulcer disease; Z95.5 Presence of coronary angioplasty implant and graft; Z98.890 Other specified postprocedural states; Z80.9 Family history of malignant neoplasm, unspecified
CPT/HCPCS: 36415; 71046; 71275; 80048; 80053; 80061; 83735; 84484; 85025; 85379; 85610; 85730; 93005; 93454; 99285

== ENCOUNTER 2021-10-15 06:17 | Day surgery (SDC) | payer BC, OTHER ==
[2021-10-11 15:36] VITALS: BMI 37.9
[2021-10-15 06:50] VITALS: TEMP 98.2
[2021-10-15] MEDS ORDERED: SODIUM CHLORIDE 0.9% 500 ML 500 ML IV ONE (06:50)
[2021-10-15] MEDS ORDERED: fentaNYL (PF) 50 MCG/ML 2 ML AMP ONE (07:14)
[2021-10-15] MEDS: BENZOCAINE SPRAY 1 CAN MUCOUS MEM ONE ×2 (07:40→07:46)
[2021-10-15] MEDS ORDERED: MIDAZOLAM 2 MG/2 ML VIAL IV ONE (07:46)
[2021-10-15] MEDS: fentaNYL (PF) 50 MCG/ML 2 ML AMP IV ONE ×2 (07:46→07:51)
[2021-10-15 07:57] VITALS: RESP 26
[2021-10-15 08:58] VITALS: BP 144/75; PULSE 79
--- NOTE | 2021-10-15 10:24 | ECHOT ---
TRANSESOPHAGEAL ECHOCARDIOGRAM INDICATION: Aortic stenosis. PROCEDURE NOTE: After obtaining informed consent, transesophageal echocardiogram was performed in left lateral position using an Omniplane probe. Local and IV sedation were obtained with Xylocaine spray, 2 mg of Versed and 50 mcg of fentanyl. The patient tolerated the procedure well without any obvious immediate complications. Patient received moderate conscious sedation. Total sedation time was 9 minutes. FINDINGS: 1. Aortic valve seems to be a bicuspid valve, heavily calcified with moderate to severe restriction in leaflet mobility. By planimetry, the valve area seems to be around 1.2 cm2, consistent with moderate aortic stenosis. There is mild to moderate aortic regurgitation noted. 2. Left atrium appears enlarged. Right atrium and right ventricle seen within normal limits. 3. Aortic root is not aneurysmally dilated. 4. Left ventricle has normal size and systolic function. 5. Mitral valve is anatomically normal. There is mild mitral regurgitation noted. There is mild tricuspid regurgitation noted. 6. Interatrial septum: There is no evidence of [id number] shunt by color-flow Doppler or [id number] shunt by agitated saline contrast study. CONCLUSIONS: 1. Normal LV systolic function. 2. Moderate aortic stenosis with mild to moderate aortic regurgitation involving a heavily calcified bicuspid aortic valve. 3. Aortic root measures within normal limits. MMODL / IJN: [id number] /
== END 2021-10-15 09:08 | disposition home or self-care (01) ==
LOC: CATHCVL 06:17
PROVIDERS: ATTEND Internal Medicine Cardiovascular Disease
DX: I35.0 Nonrheumatic aortic (valve) stenosis (principal); I34.0 Nonrheumatic mitral (valve) insufficiency; I07.1 Rheumatic tricuspid insufficiency
CPT/HCPCS: 93312; 93320; 93325; J2250; J3010

== ENCOUNTER → 2021-12-31 | Outpatient (CLI) | payer OTHER, BC ==
--- NOTE | 2021-12-31 09:06 | CT ---
EXAMINATION TYPE: CT chest w con CT DLP: 793 mGycm, Automated exposure control for dose reduction was used. DATE OF EXAM: 12/31/2021 8:40 AM COMPARISON: CT 10/01/2021, 03/26/2021. CLINICAL INDICATION:Male, 51 years old with history of R91.8 ABNORMAL FINDING OF LUNG FIELD; TECHNIQUE: Multiple axial images were obtained through the chest. Contrast used:70 ML mL of Isovue 300 with IV Contrast, Oral contrast used: without Oral Contrast FINDINGS: LUNGS/ PLEURA: The lung parenchyma appears unremarkable. Right minor fissure intrafissural lymph nod e. There is no demonstration of air trapping within the right upper lobe anterior segment. There zenobia ins prominent interstitial lung markings with groundglass opacities and peripheral reticulations. The se have not significantly progressed compared to the previous CT scan on 10/01/2021 cord edema to 03/16. AIRWAY: Patent and unremarkable. HEART: Heart is within normal limits for size. There is moderate to severe aortic valve leaflet calci fications. MEDIASTINUM: Stable prevascular, AP window and subcarinal prominent and borderline enlarged lymph nod es. The subcarinal lymph node now measuring 12 mm in short axis previously 18 mm in short axis on 04/2021 and 10/01/2021. VASCULATURE: No aortic aneurysm. Scattered atherosclerosis of the arterial vasculature. MUSCULOSKELETAL: No acute osseous abnormalities, multilevel disc degeneration changes are seen throug hout the spine. SOFT TISSUES/LYMPH NODES: Unremarkable. LOWER NECK: No significant findings. UPPER ABDOMEN: No significant findings. IMPRESSION: 1. Persistent mild air trapping in the anterior aspect of the of the right upper lobe. 2. Stable or decrease in size of mediastinal lymph nodes. 3. Similar increased interstitial lung markings with scattered groundglass opacities and peripheral r eticulation. Findings may represent sequela from prior infection and/or interstitial lung disease yoseph nges. 4. Moderate to severe aortic valve leaflet calcifications.
== END | disposition home or self-care (01) ==
LOC: RADCTMAIN 07:55
PROVIDERS: ATTEND Internal Medicine Critical Care Medicine
DX: J44.9 Chronic obstructive pulmonary disease, unspecified (principal)
CPT/HCPCS: 71260; Q9967

== ENCOUNTER → 2022-01-29 | Outpatient (CLI) | payer OTHER, BC ==
[2022-01-29 08:09] LABS: Partial Thromboplastin Time 24.8 sec (22.0-30.0); Prothrombin Time 10.6 sec (9.0-12.0)
--- NOTE | 2022-01-29 08:29 | US ---
EXAMINATION TYPE: US carotid duplex BILAT DATE OF EXAM: 01/29/2022 COMPARISON: US 2018 CLINICAL HISTORY: I25.10 CAD. Pre op cardiac surgery TECHNIQUE: Carotid duplex ultrasound examination. Indirect Doppler criteria was utilized. FINDINGS: EXAM MEASUREMENTS: RIGHT: Peak Systolic Velocity (PSV) cm/sec ----- Right CCA: 118.9 ----- Right ICA: 71.0 ----- Right ECA: 139.9 ICA/CCA ratio: 0.6 RIGHT: End Diastole cm/sec ----- Right CCA: 20.4 ----- Right ICA: 21.5 ----- Right ECA: 23.6 LEFT: Peak Systolic Velocity (PSV) cm/sec ----- Left CCA: 82.3 ----- Left ICA: 98.8 ----- Left ECA: 112.8 ICA/CCA ratio: 1.2 LEFT: End Diastole cm/sec ----- Left CCA: 16.3 ----- Left ICA: 25.9 ----- Left ECA: 13.2 VERTEBRALS (direction of flow): Right Vertebral: Antegrade Left Vertebral: Antegrade Rhythm: Normal No significant stenosis IMPRESSION: Less than 50% stenosis of bilateral carotid bifurcations. Criteria for Assigning % of Stenosis / Diameter reduction (Estimation based on the indirect measurements of the internal carotid artery velocities (ICA PSV). 1. Normal (no stenosis)=ICA PSV < 125 cm/s: ratio < 2.0: ICA EDV<40 cm/s. 2. Less than 50% stenosis=ICA PSV < 125 cm/s: ratio < 2.0: ICA EDV<40 cm/s. 3. 50 to 69% stenosis=ICA PSV of 125 to 230 cm/s: ration 2.0 ? 4.0: ICA EDV 40-100 cm/s. 4. Greater than 70% stenosis to near occlusion= ICA PSV > 230 cm/s: ratio > 4.0: ICA EDV > 100 cm/s. 5. Near occlusion= ICA PSV velocities may be low or undetectable: variable ratio and ICA EDV. 6. Total occlusion=unable to detect flow.
--- NOTE | 2022-01-29 09:42 | XR ---
EXAMINATION TYPE: XR chest 2V DATE OF EXAM: 01/29/2022 COMPARISON: 10/01/2021 TECHNIQUE: PA and lateral views submitted. HISTORY: Preop FINDINGS: The lungs are clear and there is no pneumothorax, pleural effusion, or focal pneumonia. Coarsened i nterstitium. Heart size normal. Biapical pleural thickening. IMPRESSION: 1. Correlate for bronchitis or interstitial pneumonitis. Chronic interstitial pulmonary lung disease such as fibrosis also in the differential diagnosis.
[2022-01-29 10:56] LABS: Basophils # (A) 0.04 X 10*3/uL (0.00-0.10); Basophils % (A) 0.4 %; Eosinophils # (A) 0.39 X 10*3/uL (0.04-0.35); Eosinophils % (A) 4.3 %; HCT 45.7 % (39.6-50.0); HGB 15.4 g/dL (13.0-17.0); Immature Grans, Automated 0.7 %; Lymphocytes # (A) 3.16 X 10*3/uL (0.90-5.00); Lymphocytes % (A) 35.2 %; MCH 28.6 pg (27.0-32.0); MCHC 33.7 g/dL (32.0-37.0); MCV 84.9 fL (80.0-97.0); Mean Platelet Volume 10.2 fL (9.5-12.2); Monocytes # (A) 0.43 X 10*3/uL (0.20-1.00); Monocytes % (A) 4.8 %; NRBC Per 100 WBC 0 /100 WBCS (0.0-0.0); Neutrophils # (A) 4.91 X 10*3/uL (1.80-7.70); Neutrophils % (A) 54.6 %; Platelet Count 254 X 10*3/uL (140-440); RBC 5.38 X 10*6/uL (4.40-5.60); RDW 13.2 % (11.5-14.5); WBC 8.99 X 10*3/uL (4.50-10.00)
[2022-01-29 11:02] LABS: ALT 21 U/L (10-49); AST 21 U/L (14-35); African American GFR (CKD) 80.7 (60.0-200.0); Albumin 4.1 g/dL (3.8-4.9); Albumin/Globulin Ratio 1.58 (1.60-3.17); Alkaline Phosphatase 78 U/L (41-126); BUN/Creat Ratio 11.33 Ratio (12.00-20.00); Blood Urea Nitrogen 13.6 mg/dL (9.0-27.0); Calcium 8.9 mg/dL (8.7-10.3); Carbon Dioxide 22.7 mmol/L (20.0-27.5); Chloride 104 mmol/L (96-109); Chol/HDL Ratio 4.13 Ratio; Globulin 2.6 g/dL (1.6-3.3); Glucose 191 mg/dL (70-110); Magnesium 2.2 mg/dL (1.5-2.4); Non-African American GFR(CKD) 69.6 (60.0-200.0); Potassium 3.6 mmol/L (3.5-5.5); Sodium 137 mmol/L (135-145); Total Protein 6.7 g/dL (6.2-8.2)
[2022-01-29 11:49] LABS: Hepatitis A Antibody IgM Nonreactive (Nonreactive); Hepatitis B Core IgM Nonreactive (Nonreactive); Hepatitis B Surface Antigen Nonreactive (Nonreactive); Hepatitis C IgG Antibody Nonreactive (Nonreactive)
[2022-01-29 12:18] LABS: Appearance,Urine Clear (Clear); Bilirubin,Urine Negative (Negative); Blood,Urine Negative (Negative); Color,Urine Yellow (Yellow); Ketones,Urine Negative (Negative); Nitrite,Urine Negative (Negative); PH, Urine 5.5 (5.0-8.0); Specific Gravity,Urine 1.018 (1.001-1.030); Urobilinogen,Urine 0.2 (0.2,1.0)
--- NOTE | 2022-01-30 13:49 | US ---
EXAMINATION TYPE: US vein mapping BILAT DATE OF EXAM: 01/29/2022 8:17 AM COMPARISON: NONE CLINICAL HISTORY: I25.10 CAD. Pre op cardiac surgery SIDE PERFORMED: Bilateral TECHNIQUE: Lower extremity saphenous vein is examined and measured utilizing real time linear array sonography. DUPLEX FINDINGS: Greater Saphenous: Color flow seen Measurements in mm: Right Greater Saphenous: Groin: 7.3 x 7.1 mm High Thigh: 7.1 x 7.1 mm Mid Thigh: 5.5 x 6.4 mm Above Knee: 5.0 x 5.3 mm Knee: 4.4 x 4.7 mm Below Knee: 5.2 x 5.1 mm Mid Calf: 4.7 x 4.9 mm At Ankle: 4.1 x 4.2 mm Left Greater Saphenous: Groin: 9.0 x 8.7 mm High Thigh: 6.4 x 7.7 mm Mid Thigh: 6.3 x 7.1 mm Above Knee: 6.2 x 6.6 mm Knee: 6.0 x 6.8 mm Below Knee: 6.1 x 7.4 mm Mid Calf: 4.7 x 5.3 mm At Ankle: 3.8 x 4.7 mm IMPRESSION: 1. Bilateral GSV measurements listed above. 2. Performing surgeon to determine viability as conduit.
== END | disposition home or self-care (01) ==
LOC: RADUSWWP 06:57
PROVIDERS: ATTEND Surgery
DX: I24.0 Acute coronary thrombosis not resulting in myocardial infarction (principal)
CPT/HCPCS: 71046; 80053; 80061; 80074; 81003; 83036; 83735; 84443; 85025; 85610; 85730; 87070; 87086; 93005; 93880; 93970

== ENCOUNTER 2022-01-31 05:35 | Inpatient (IN) | payer BC, OTHER ==
[~2022-01-31 05:35] MED LIST: ALBUMIN HUMAN 25% 50 ML IV ONE; ALBUMIN HUMAN 5% 250 ML IVPB ONE; ALBUMIN HUMAN 5% 500 ML IVPB ONE; ASPIRIN 325 MG TAB PO ONE; ATORVASTATIN 10 MG TAB PO ONE; CALCIUM CHLORIDE 100 MG/ML 10 ML SYRINGE IV ONE; CARDIOPLEGIC SOLN (K+ 16 MEQ/L 1,000 ML with SODIUM BICARB (1 MEQ/ML) 20 ML, LIDOCAINE ... PERFUSION ONE; CHLORHEXIDINE GLUCONATE 15 ML CUP MUCOUS MEM ONE; CLEVIDIPINE BUTYRATE 25 MG in EMPTY BAG 1 BAG IV ONE; HEPARIN SODIUM 1,000 UN/ML (10ML VL) IV ONE; HEPARIN SODIUM,PORCINE 5,000 UNIT in SODIUM CHLORIDE 0.9% 500 ML 500 ML IV ONE; INSULIN REGULAR 100 UNIT in SODIUM CHLORIDE 0.9% 100 ML IV ONE; LACTATED RINGERS 1,000 ML IV ONE; MAGNESIUM SULFATE 16.24 MEQ in EMPTY SYRINGE 1 SYR IV ONE; MANNITOL 25% 12.5 GM/50 ML VIAL IV ONE; METOPROLOL TARTRATE 12.5 MG TAB PO ONE; NITROGLYCERIN SL TABS 0.4 MG TAB SUBLINGUAL ONE; NITROGLYCERIN-D5W PMX 25 MG/250 ML BTL IV ONE; NITROGLYCERIN-D5W PMX 50 MG in DEXTROSE/WATER 1 250ML.BAG IV ONE; NOREPINEPHRINE 4 MG in SODIUM CHLORIDE 0.9% 250 ML IV ONE; PAPAVERINE 360 MG in SODIUM CHLORIDE 0.9% 90 ML IV ONE; PHENYLEPHRINE 10 MG/ML VIAL IV ONE; PHENYLEPHRINE 40 MG in SODIUM CHLORIDE 0.9% 250 ML IV ONE; PROTAMINE SULFATE 10 MG/ML 25 ML VIAL IV ONE; PROTAMINE SULFATE 250 MG in EMPTY BAG 1 BAG IV ONE; SODIUM BICARB 8.4% 50 ML SYR (1 MEQ/ML) IV ONE; SODIUM CHLORIDE 0.9% 1,000 ML IV ONE; TRANEXAMIC ACID 2,000 MG in SODIUM CHLORIDE 0.9% 80 ML IV ONE; ceFAZolin 1,000 MG in SODIUM CHLORIDE 0.9% IRRIGATIO 1,000 ML IRRIGATION ONE; propofoL 1,000 MG/100 ML VIAL IV ONE
[2022-01-31] MEDS ORDERED: LIDOCAINE 1% (10MG/ML) FOR IV START INTRADERMA ONE (06:25)
[2022-01-31 06:40] LABS: Glucose,Whole Blood 110 mg/dL (70-110)
[2022-01-31] MEDS ORDERED: SUCCINYLCHOLINE CHLORIDE 200 MG/10 ML VIAL IV ONE (08:10)
[2022-01-31] MEDS ORDERED: ELECTROLYTE-R (PH 7.4) 1,000 ML IV.SOLN IV ONE (08:10)
[2022-01-31] MEDS ORDERED: TRANEXAMIC ACID IN NACL,ISO-OS 1,000 MG/100 ML BAG ONE (08:10)
[2022-01-31] MEDS ORDERED: fentaNYL (PF) 50 MCG/ML 50 ML VIAL ONE (08:10)
[2022-01-31] MEDS ORDERED: VECURONIUM 10 MG VIAL IV ONE (08:10)
[2022-01-31] MEDS ORDERED: SODIUM CHLORIDE 0.9% 100 ML BAG ONE (08:10)
[2022-01-31] MEDS ORDERED: HEPARIN SODIUM,PORCINE 5,000 UNIT/ML 1 ML VIAL ONE (08:10)
[2022-01-31] MEDS ORDERED: MIDAZOLAM HCL 10 MG/10 ML VIAL ONE (08:10)
[2022-01-31] MEDS ORDERED: PROPOFOL 10 MG/ML 20 ML VIAL IV ONE (08:10)
[2022-01-31] MEDS ORDERED: HEPARIN SODIUM,PORCINE 10,000 UNIT/ML 1 ML VIAL ONE (08:10)
[2022-01-31] MEDS ORDERED: SODIUM CHLORIDE 0.9% IRRIG 1,000 ML BTL IRRIGATION ONE (08:10)
[2022-01-31] MEDS ORDERED: ceFAZolin 1,000 MG VIAL ONE (08:10)
[2022-01-31] MEDS ORDERED: PROTAMINE SULFATE 10 MG/ML 25 ML VIAL IV ONE (08:10)
--- NOTE | 2022-01-31 09:23 | P.PN ---
Progress Note - Text Progress Note Date: 01/29/22 5 meter walk test was completed: #1 2.82 sec #2 3.15 sec #3 3.28 sec Patient tolerated well without difficulty. STS risk score was calculated and discussed with patient. Nasal swab positive for MSSA-placed on mupirocin.
[2022-01-31 09:31] LABS: ABG Base Excess -3.4 mmol/L; ABG Glucose Whole Blood 134 mg/dL (75-99); ABG HCO3 24 mmol/L (21-25); ABG Hematocrit 45 % (34.0-46.0); ABG Ionized Calcium 4.7 mg/dL (4.5-5.3); ABG Lactic Acid Whole Blood 1.2 mmol/L (0.5-1.6); ABG Oxygen Saturation 99.1 % (94-97); ABG PCO2 54 mmHg (35-45); ABG PH 7.26 (7.35-7.45); ABG PO2 194 mmHg (83-108); ABG Potassium Whole Blood 4.1 mmol/L (3.4-4.5); ABG Sodium Whole Blood 138 mmol/L (135-146); ABG TCO2 26 mmol/L (19-24)
[2022-01-31 10:12] LABS: ABG Base Excess -2.1 mmol/L; ABG Glucose Whole Blood 142 mg/dL (75-99); ABG HCO3 24 mmol/L (21-25); ABG Hematocrit 43 % (34.0-46.0); ABG Ionized Calcium 4.6 mg/dL (4.5-5.3); ABG Oxygen Saturation 96.8 % (94-97); ABG PCO2 47 mmHg (35-45); ABG PH 7.32 (7.35-7.45); ABG PO2 89 mmHg (83-108); ABG Potassium Whole Blood 4.5 mmol/L (3.4-4.5); ABG Sodium Whole Blood 137 mmol/L (135-146); ABG TCO2 26 mmol/L (19-24)
[2022-01-31 10:48] LABS: ABG Base Excess -5.1 mmol/L; ABG Glucose Whole Blood 150 mg/dL (75-99); ABG HCO3 23 mmol/L (21-25); ABG Hematocrit 33 % (34.0-46.0); ABG Ionized Calcium 4.4 mg/dL (4.5-5.3); ABG Lactic Acid Whole Blood 1.4 mmol/L (0.5-1.6); ABG Oxygen Saturation 97.2 % (94-97); ABG PCO2 55 mmHg (35-45); ABG PH 7.23 (7.35-7.45); ABG PO2 99 mmHg (83-108); ABG Potassium Whole Blood 5.1 mmol/L (3.4-4.5); ABG Sodium Whole Blood 133 mmol/L (135-146); ABG TCO2 25 mmol/L (19-24)
[2022-01-31 10:57] LABS: ABG Base Excess -5.8 mmol/L; ABG Glucose Whole Blood 162 mg/dL (75-99); ABG HCO3 22 mmol/L (21-25); ABG Hematocrit 33 % (34.0-46.0); ABG Ionized Calcium 4.5 mg/dL (4.5-5.3); ABG Lactic Acid Whole Blood 1.5 mmol/L (0.5-1.6); ABG Oxygen Saturation 99.3 % (94-97); ABG PCO2 52 mmHg (35-45); ABG PH 7.23 (7.35-7.45); ABG PO2 231 mmHg (83-108); ABG Sodium Whole Blood 134 mmol/L (135-146); ABG TCO2 24 mmol/L (19-24)
[2022-01-31 11:10] LABS: ABG Base Excess -5.5 mmol/L; ABG Glucose Whole Blood 161 mg/dL (75-99); ABG HCO3 22 mmol/L (21-25); ABG Hematocrit 33 % (34.0-46.0); ABG Ionized Calcium 4.4 mg/dL (4.5-5.3); ABG Lactic Acid Whole Blood 1.6 mmol/L (0.5-1.6); ABG Oxygen Saturation 99.7 % (94-97); ABG PCO2 49 mmHg (35-45); ABG PH 7.25 (7.35-7.45); ABG PO2 297 mmHg (83-108); ABG Potassium Whole Blood 5.2 mmol/L (3.4-4.5); ABG Sodium Whole Blood 133 mmol/L (135-146); ABG TCO2 23 mmol/L (19-24)
[2022-01-31 11:41] LABS: ABG Base Excess -1.8 mmol/L; ABG Glucose Whole Blood 161 mg/dL (75-99); ABG HCO3 24 mmol/L (21-25); ABG Hematocrit 32 % (34.0-46.0); ABG Ionized Calcium 4.3 mg/dL (4.5-5.3); ABG Lactic Acid Whole Blood 1.8 mmol/L (0.5-1.6); ABG Oxygen Saturation 99.8 % (94-97); ABG PCO2 42 mmHg (35-45); ABG PH 7.36 (7.35-7.45); ABG PO2 257 mmHg (83-108); ABG Potassium Whole Blood 5.5 mmol/L (3.4-4.5); ABG Sodium Whole Blood 134 mmol/L (135-146); ABG TCO2 25 mmol/L (19-24)
[2022-01-31] MEDS ORDERED: IPRATROPIUM-ALBUTEROL 3 ML NEB INHALATION PRN (13:38)
[2022-01-31] MEDS ORDERED: Magnesium Replacement Protocol 1 EACH MISC MISCELLANE PRN (13:38)
[2022-01-31] MEDS ORDERED: AMIODARONE 360 MG in DEXTROSE 5% IN WATER 200 ML IV ONE ×2 (13:38)
[2022-01-31] MEDS ORDERED: DEXMEDETOMIDINE/0.9% NACL(PMX) 400 MCG in EMPTY BAG 1 BAG IV SCH (13:38)
[2022-01-31] MEDS ORDERED: CALCIUM GLUCONATE IN NACL 2 GM in SALINE 1 100ML.BAG IVPB PRN (13:38)
[2022-01-31] MEDS ORDERED: INSULIN REGULAR 100 UNIT in SODIUM CHLORIDE 0.9% 100 ML IV SCH (13:38)
[2022-01-31] MEDS ORDERED: hydrALAZINE HCL 20 MG/ML 1 ML VIAL IVP PRN (13:38)
[2022-01-31] MEDS ORDERED: Potassium Replacement Protocol 1 EACH MISC MISCELLANE PRN (13:38)
[2022-01-31] MEDS ORDERED: ALBUMIN HUMAN 5% 250 ML in EMPTY BAG 1 BAG IVPB PRN (13:38)
[2022-01-31] MEDS ORDERED: BENZOCAINE/MENTHOL LOZENG 1 EACH LOZENGE MUCOUS MEM PRN (13:38)
[2022-01-31] MEDS ORDERED: CLEVIDIPINE BUTYRATE 25 MG in EMPTY BAG 1 BAG IV SCH (13:38)
[2022-01-31] MEDS ORDERED: DEXTROSE 5% IN WATER 100 ML with AMIODARONE 150 MG IV PRN (13:38)
[2022-01-31] MEDS ORDERED: DEXTROSE 50% SYRINGE 50 ML IVP PRN ×2 (13:38)
[2022-01-31 13:39] LABS: Glucose,Whole Blood 137 mg/dL (70-110)
--- NOTE | 2022-01-31 13:41 | P.OP ---
Date of Procedure: 01/31/22 Preoperative Diagnosis: Bicuspid calcific aortic stenosis/insufficiency Postoperative Diagnosis: Same Procedure(s) Performed: Aortic valve replacement with 25 mm On-X mechanical valve, ligation of the left atrial appendage with a 35 mm AtriCure clip, epi-aortic ultrasonography, patch closure of aortotomy with Bovie pericardium. Implants: 25 mm On-X aortic valve, 35 mm AtriCure clip Surgeon: Stan Carroll Accountant Auditor #1: Venkat Sy Accountant Auditor #2: Lucho Hilton Pathology: other (Aortic valve) Condition: stable Disposition: ICU Indications for Procedure: 51-year-old male with severe symptomatic aortic disease including moderate to severe aortic stenosis and moderate aortic insufficiency with documented bicuspid aortic valve. Operative Findings: The ascending aorta was relatively normal by epi-aortic ultrasonography. The aortic valve was bicuspid with fusion of the left and right cusps and heavily calcific through the leaflets and the annulus. After excision of the valve, the annulus sized appropriately for a 25 mm On-X valve. Upon attempting to seat the valve it was very tight. Once the valve was seated the aortotomy extended to the annulus and was quite snug. Was decided to patch the aortotomy in order to avoid any tension and this proceeded without event. Postoperative YASH demonstrated normal ventricular function, trace mitral regurgitation, trace aortic regurgitation between the leaflets, no evidence of paravalvular leak. Following reversal of heparinization with protamine the patient had good hemostasis and required no intraoperative blood transfusion Description of Procedure: Patient was brought to the operating room and placed supine on the operating table. Monitoring lines been placed in preoperative holding. General anesthesia was induced and YASH probe was placed. The anterior torso and bilateral lower extremities were prepped and draped. Midline sternotomy was performed. The left pleural space was opened widely and the right pleural space was opened minimally. Midline pericardiotomy was performed and the heart was exposed with pericardial sutures. Epi-aortic ultrasonography was performed with findings as noted above. The patient was systemically heparinized for cardiopulmonary bypass. Patient was cannulated for cardiopulmonary bypass with an 8 mm soft flow cannula in the distal ascending aorta and a two-stage venous cannula through the right atrial appendage into the inferior vena cava. Antegrade and retrograde cardioplegia lines were placed in standard fashion. The patient was placed on cardiopulmonary bypass and stabilized. Prolene pursestring suture was placed in the right superior pulmonary vein. Aorta was also clamped and the heart arrested with cold antegrade and retrograde cardioplegia. Left atrial vent was placed through the pursestring in the right superior pulmonary vein. Dissection was carried out at the base of the left atrial appendage to completely free of and a 35 mm AtriCure clip was placed at the base of the left atrial appendage. Transverse a total aortotomy was performed and carried down into the noncoronary cusp sinus of Valsalva. The aortic valve was explored with findings as noted above. The valve was excised and the annulus was decalcified. Circumferential sutures of 2-0 Tycron were placed with pledgets on the ventricular side to allow a supra-annular implantation of the valve. The annulus was sized and a 25 mm On-X mechanical valve was chosen and brought up on the field. Annular sutures were passed through the sewing ring of the valve and the valve was seated. The seating was quite tight we were able to sew down the left and right coronary sinuses without difficulty. On trying to seat the noncoronary sinus one of the sutures pulled out and was retrieved along with its pledgeted. We ultimately were able to seat the valve and placed the broken suture with a 4-0 Prolene placed through the aorta through the valve sewing ring and back out the aorta and tied externally. In seating the valve, the aorta to 4 down to the level of the annulus. The valve was noted to have seated well and the leaflets both removed without any difficulty. There was no obstruction to the coronary ostia. There was concern that if we try to close the aorta primarily it might be very tight and might leak and it was decided to patch the closure with bovine pericardium. No B pericardium was washed on the back field and brought up onto the table. A strip 1.2 cm and width was created and was sewn into the base of the aortotomy adjacent to the sewing ring of the valve at the annular level. Suture was then used to close the entire aortotomy with running 4-0 Prolene suture in single layer. On completion, the patient was placed in Trendelenburg and the left atrial vent was removed and the pursestring tied. Clamp was removed. The patient required a single defibrillation and a single conversion from A. fib into sinus rhythm and then remained stable. Atrial and ventricular pacing wires were replaced and the retrograde coronary sinus line was removed. Heart was de- aired under YASH guidance with a 16-gauge Angiocath in the apex of the left ventricle. This was oversewn with a 6-0 Prolene suture and then the aortic vent line was removed and the 4-0 Prolene suture tied. The patient was weaned from cardioplegic bypass without the use of inotropic support. Once from cardioplegic bypass and stable the patient was decannulated in standard fashion and heparin was reversed with protamine. Good hemostasis resulted. The left pleural space was drained with a 32-Albanian chest tube in the mediastinum with a 36-Albanian chest tube. Chest was irrigated with antibiotic solution prior to closure. Sternum was closed with 4 sternal wires and 3 cable-plates. An auxiliary plate was placed in the manubrium and 2 box plates on the sternal body. Fascia was closed with 0 Ethibond. Cutaneous and subcuticular layers were closed in layers with Vicryl suture. There is no significant drainage from the chest tubes. Patient was hemodynamically stable. He required no blood transfusions. Final YASH notes are described above but demonstrated only trivial AI trivial MR and no paravalvular leak with good ventricular function.
[2022-01-31 13:55] LABS: ABG Base Excess -2.9 mmol/L; ABG HCO3 25 mmol/L (21-25); ABG Oxygen Saturation 98.4 % (94-97); ABG PCO2 61 mmHg (35-45); ABG PH 7.22 (7.35-7.45); ABG PO2 116 mmHg (83-108); ABG TCO2 27 mmol/L (19-24); Allen Test Performed? Yes
[2022-01-31 13:59] LABS: Basophils # (A) 0.1 k/uL (0-0.2); Basophils % (A) 1 %; Eosinophils # (A) 0.1 k/uL (0-0.7); Eosinophils % (A) 1 %; HCT 40.2 % (39.0-53.0); HGB 13.2 gm/dL (13.0-17.5); Lymphocytes # (A) 1.9 k/uL (1.0-4.8); Lymphocytes % (A) 11 %; MCH 29.1 pg (25.0-35.0); MCHC 32.9 g/dL (31.0-37.0); MCV 88.4 fL (80.0-100.0); Mean Platelet Volume 7.7; Monocytes # (A) 0.7 k/uL (0-1.0); Monocytes % (A) 4 %; Neutrophils # (A) 14.2 k/uL (1.3-7.7); Neutrophils % (A) 83 %; Platelet Count 231 k/uL (150-450); RBC 4.54 m/uL (4.30-5.90); RDW 13.2 % (11.5-15.5)
[2022-01-31 14:03] LABS: Glucose,Whole Blood 135 mg/dL (70-110)
[2022-01-31 14:09] LABS: INR 1.1 (<1.2); Partial Thromboplastin Time 34.1 sec (22.0-30.0); Prothrombin Time 11.3 sec (9.0-12.0)
--- NOTE | 2022-01-31 14:11 | XR ---
EXAMINATION TYPE: XR chest 1V portable DATE OF EXAM: 01/31/2022 CLINICAL HISTORY: Postopen cardiac surgery. TECHNIQUE: Single AP portable supine view of the chest is obtained. COMPARISON: Chest x-ray from 2 days earlier FINDINGS: There is new endotracheal tube at the inferior clavicular margin approximately 3 to 4 cm a amber the maryanne. There is new orogastric tube projecting below diaphragm. There is new right internal jugular Whitfield-Charisma catheter with tip projecting into the right lower lobe pulmonary artery. There is new mediastinal drainage catheter along with left-sided chest tube. Overlying sternal wires along wit h left atrial appendage clipping and cardiac metallic valve are identified. Cyst and low lung volumes and diminished inspiration with increased markings bilaterally. No visualiz ed pneumothorax. More prominent cardiac silhouette. Osseous structures are intact. IMPRESSION: 1. There are new tubes and lines as detailed above. No pneumothorax seen bilaterally. 2. New mild to moderate interstitial edema.
[2022-01-31 14:19] LABS: Ionized Calcium 4.8 mg/dL (4.5-5.3)
[2022-01-31] MEDS: LACTATED RINGERS 1,000 ML IV SCH (14:22)
[2022-01-31 14:26] LABS: ALT 18 U/L (4-49); AST 49 U/L (17-59); African American GFR (CKD) >90 (>60 ml/min/1.73 sqM); Alkaline Phosphatase 62 U/L (38-126); Anion Gap 9 mmol/L; Blood Urea Nitrogen 12 mg/dL (9-20); Carbon Dioxide 21 mmol/L (22-30); Chloride 108 mmol/L (98-107); Glucose 126 mg/dL (74-99); Magnesium 3.7 mg/dL (1.6-2.3); Non-African American GFR(CKD) 82 (>60 ml/min/1.73 sqM); Potassium 5.1 mmol/L (3.5-5.1); Sodium 138 mmol/L (137-145); Total Bilirubin 0.4 mg/dL (0.2-1.3); Total Protein 4.9 g/dL (6.3-8.2)
--- NOTE | 2022-01-31 14:58 | P.CNPUL ---
History of Present Illness Consult date: 01/31/22 Requesting physician: Stan Carroll Reason for consult: other Chief complaint: Bicuspid calcific aortic stenosis History of present illness: This is a 51-year-old male with history of aortic stenosis and aortic insufficiency. Patient has been having symptoms of dyspnea on exertion that began 6 months to a year ago but got progressively worse and is significantly worse after the diagnosis of COVID 19 in June 2021. Despite recovering from COVID-19 he remained severely dyspneic with activity and could barely climb one flight of stairs. Transesophageal echocardiogram demonstrated a bicuspid aortic valve and surface echocardiography has shown moderate to severe stenosis. Patient does have a history of CAD with a previous stent placement to the RCA in 2019. Repeat heart catheterization showed no significant stenosis with patent stent in the RCA. Medical history includes hypertension, hyperlipidemia, history of pulmonary embolism on Eliquis. Patient was referred to cardiac jason gail, and patient opted for a mechanical valve. Today on 01/31/2022 patient underwent aortic valve replacement with a 25 mm mechanical valve, ligation of the left atrial appendage, patch closure of the aortotomy. Patient is seen in the postoperative period in the intensive care unit, sedated, and intubated, on assist control mode of ventilation with a rate of 12, tidal arms 500, FiO2 100% and PEEP of 10. Hemodynamically patient is stable, not on any vasopressor support, he is in sinus mechanism, left pleural and mediastinal chest tubes with scant amount of sanguinous output, to wall suction. He is on Diprivan at 25 mics per kilo per minute, and lactated Ringer's at 50 ML per hour, PEEP p ressures 45/33, CVP is 29, cardiac output is 4.9 and cardiac index is 2.2. Postoperative blood gas has been reviewed and show pO2 116, pCO2 of 61, and pH of 7.22. Chest x-ray showed ET tube approximately 3-4 cm above the maryanne, Montfort-Charisma catheter in the right lower lobe pulmonary artery, no pneumothorax bilaterally, new mild to moderate interstitial edema. Postop blood work is pending. Review of Systems All systems: negative Constitutional: Denies chills, Denies fever Eyes: denies blurred vision, denies pain Ears, nose, mouth and throat: Denies headache, Denies sore throat Cardiovascular: Denies chest pain, Denies shortness of breath Respiratory: Reports dyspnea, Denies cough Gastrointestinal: Denies abdominal pain, Denies diarrhea, Denies nausea, Denies vomiting Musculoskeletal: Denies myalgias Integumentary: Denies pruritus, Denies rash Neurological: Denies numbness, Denies weakness Psychiatric: Denies anxiety, Denies depression Endocrine: Denies fatigue, Denies weight change Past Medical History Past Medical History: Coronary Artery Disease (CAD), COPD, Diabetes Mellitus, GERD/Reflux, Hyperlipidemia, Hypertension, Myocardial Infarction (OR), Osteoarthritis (OA), Pulmonary Embolus (PE) Additional Past Medical History / Comment(s): Bronchitis, gastric ulcer as a teen, hx. L leg cellulitis but not currently, chronic low back pain, vertigo, ?hx. of PE but discrepancy between & morteza if had, just had sleep study for possible sleep apnea, possible diabetes, states recent elevated HgbA1C Last Myocardial Infarction Date:: September 2021 History of Any Multi-Drug Resistant Organisms: None Reported Past Surgical History: Heart Catheterization With Stent Additional Past Surgical History / Comment(s): Egd, colonoscopy, YASH Past Anesthesia/Blood Transfusion Reactions: No Reported Reaction Date of Last Stent Placement:: February of 2019 Smoking Status: Current every day smoker - Past Family History Father Family Medical History: Coronary Artery Disease (CAD), Myocardial Infarction (OR) Additional Family Medical History / Comment(s): Father of OR at the age of 71 yrs. Sister(s) Family Medical History: No Reported History Additional Family Medical History / Comment(s): Sister has a heart murmur. Mother Family Medical History: Cancer Medications and Allergies Home Medications Medication Instructions Recorded Confirmed Type Aspirin 81 mg PO DAILY #30 chew 01/21/19 01/29/22 Rx Atorvastatin [Lipitor] 80 mg PO HS #30 tab 01/21/19 01/29/22 Rx Clopidogrel [Plavix] 75 mg PO DAILY #30 tab 01/21/19 01/29/22 Rx Nitroglycerin Sl Tabs [Nitrostat] 0.4 mg SUBLINGUAL Q5M PRN #25 tab 01/21/19 01/29/22 Rx Metoprolol Succinate [Toprol XL] 50 mg PO DAILY 03/26/21 01/29/22 History Albuterol Inhaler [Ventolin Hfa 2 puff INHALATION RT-QID PRN 10/01/21 01/29/22 History Inhaler] Ergocalciferol [Vitamin D2 (1250 1,250 mcg PO MO 10/01/21 01/29/22 History Mcg = 40563 Iu)] Losartan [Cozaar] 25 mg PO DAILY 10/01/21 01/29/22 History Fenofibrate [Lofibra] 160 mg PO DAILY 30 Days #30 tab 10/03/21 01/29/22 Rx lisinopriL [Zestril] 5 mg PO DAILY 01/29/22 01/29/22 History Fluticasone/Umeclidin/Vilanter 1 inhalation INHALATION DAILY 01/30/22 01/30/22 History [Trelegy Ellipta 100-62.5-25] Mupirocin [Mupirocin 2%] 1 applic NASAL BID #1 tub 01/30/22 Rx Allergies Allergy/AdvReac Type Severity Reaction Status Date / Time No Known Allergies Allergy Verified 01/29/22 09:21 Physical Exam Vitals: Vital Signs Temp Pulse Pulse Resp BP BP Pulse Ox 01/31/22 14:10 82 16 93 L 01/31/22 14:00 86 16 96 01/31/22 13:50 85 12 97 01/31/22 13:40 97.3 F L 77 12 97 01/31/22 06:06 97.9 F 73 16 140/79 130/69 97 FiO2 01/31/22 14:10 80 01/31/22 14:00 100 01/31/22 13:50 100 01/31/22 13:40 100 01/31/22 06:06 Intake and Output 01/30/22 01/31/22 01/31/22 22:59 06:59 14:59 Intake Total 100 131 Output Total 2136 Balance Intake: IV 100 81 0.9 ns pressure bag 9 cardiac outpt 20 Intake, IV Titration 50 Amount Lactated Ringers 1,000 ml 50 @ 50 mls/hr IV .Q20H [facility] Rx#:[id number] Output: Chest Tube Drainage 41 Chest Tube Left Pleural/ 41 Mediastinal Urine 595 Estimated Blood Loss 1500 Other: Weight 114.2 kg ABP, PAP, CO, CI - Last 8 Hours Arterial Blood Pressure 92/52 Arterial Blood Pressure 106/73 Arterial Blood Pressure 105/56 Pulmonary Artery Pressure 35/23 Pulmonary Artery Pressure 47/30 Pulmonary Artery Pressure 43/30 Pulmonary Artery Pressure 45/16 Cardiac Output 4.9 Cardiac Index 2.2 GENERAL EXAM: Sedated, intubated, 51-year-old white male, comfortable in no apparent distress. HEAD: Normocephalic/atraumatic. EYES: Normal reaction of pupils, equal size. Conjunctiva pink, sclera white. NOSE: Clear with pink turbinates. THROAT: No erythema or exudates. NECK: No masses, no JVD, no thyroid enlargement, no adenopathy. CHEST: No chest wall deformity. Symmetrical expansion. Midsternal incision is clean dry and intact, left pleural and mediastinal chest tube in place, with scant amount of sanguinous output in the Pleur-evac LUNGS: Equal air entry with no crackles, wheeze, rhonchi or dullness. CVS: Regular rate and rhythm, normal S1 and S2, no gallops, no murmurs, no rubs ABDOMEN: Soft, nontender. No hepatosplenomegaly, normal bowel sounds, no guarding or rigidity. EXTREMITIES: No clubbing, no edema, no cyanosis, 2+ pulses and upper and lower extremities. MUSCULOSKELETAL: Muscle strength and tone normal. SPINE: No scoliosis or deformity SKIN: No rashes CENTRAL NERVOUS SYSTEM: Sedated, intubated No focal deficits, tone is normal in all 4 extremities. Results - Laboratory Findings CBC and BMP: 01/31/22 13:40 01/31/22 13:40 ABG ABG pH 7.22 (7.35-7.45) L 01/31/22 13:50 ABG pCO2 61 mmHg (35-45) H 01/31/22 13:50 ABG pO2 116 mmHg (83-108) H 01/31/22 13:50 ABG O2 Saturation 98.4 % (94-97) H 01/31/22 13:50 PT/INR, D-dimer PT 11.3 sec (9.0-12.0) 01/31/22 13:40 INR 1.1 (<1.2) 01/31/22 13:40 Abnormal lab findings: Abnormal Labs 01/29/22 01/31/22 01/31/22 07:25 09:34 10:15 WBC Neutrophils # APTT ABG pH 7.26 L 7.32 L ABG pCO2 54 H 47 H ABG pO2 194 H ABG Total CO2 26 H 26 H ABG O2 Saturation 99.1 H ABG Hematocrit ABG Sodium ABG Potassium ABG Ionized Calcium ABG Glucose 134 H 142 H ABG Lactic Acid Hemoglobin Chloride Carbon Dioxide Glucose POC Glucose (mg/dL) Calcium Magnesium Total Protein Albumin Arterial Blood Potassium Arterial Blood Glucose 134 H 142 H Crossmatch See Detail 01/31/22 01/31/22 01/31/22 10:51 11:00 11:13 WBC Neutrophils # APTT ABG pH 7.23 L 7.23 L 7.25 L ABG pCO2 55 H 52 H 49 H ABG pO2 231 H 297 H ABG Total CO2 25 H ABG O2 Saturation 97.2 H 99.3 H 99.7 H ABG Hematocrit 33 L 33 L 33 L ABG Sodium 133 L 134 L 133 L ABG Potassium 5.1 H 5.0 H 5.2 H ABG Ionized Calcium 4.4 L 4.4 L ABG Glucose 150 H 162 H 161 H ABG Lactic Acid Hemoglobin 10.8 L 10.7 L 10.8 L Chloride Carbon Dioxide Glucose POC Glucose (mg/dL) Calcium Magnesium Total Protein Albumin Arterial Blood Potassium 5.1 H 5.0 H 5.2 H Arterial Blood Glucose 150 H 162 H 161 H Crossmatch 01/31/22 01/31/22 01/31/22 11:43 13:38 13:40 WBC 17.0 H Neutrophils # 14.2 H APTT ABG pH ABG pCO2 ABG pO2 257 H ABG Total CO2 25 H ABG O2 Saturation 99.8 H ABG Hematocrit 32 L ABG Sodium 134 L ABG Potassium 5.5 H ABG Ionized Calcium 4.3 L ABG Glucose 161 H ABG Lactic Acid 1.8 H Hemoglobin 10.4 L Chloride Carbon Dioxide Glucose POC Glucose (mg/dL) 137 H Calcium Magnesium Total Protein Albumin Arterial Blood Potassium 5.5 H Arterial Blood Glucose 161 H Crossmatch 01/31/22 01/31/22 01/31/22 13:40 13:40 13:50 WBC Neutrophils # APTT 34.1 H ABG pH 7.22 L ABG pCO2 61 H ABG pO2 116 H ABG Total CO2 27 H ABG O2 Saturation 98.4 H ABG Hematocrit ABG Sodium ABG Potassium ABG Ionized Calcium ABG Glucose ABG Lactic Acid Hemoglobin Chloride 108 H Carbon Dioxide 21 L Glucose 126 H POC Glucose (mg/dL) Calcium 8.0 L Magnesium 3.7 H Total Protein 4.9 L Albumin 3.0 L Arterial Blood Potassium Arterial Blood Glucose Crossmatch 01/31/22 14:01 WBC Neutrophils # APTT ABG pH ABG pCO2 ABG pO2 ABG Total CO2 ABG O2 Saturation ABG Hematocrit ABG Sodium ABG Potassium ABG Ionized Calcium ABG Glucose ABG Lactic Acid Hemoglobin Chloride Carbon Dioxide Glucose POC Glucose (mg/dL) 135 H Calcium Magnesium Total Protein Albumin Arterial Blood Potassium Arterial Blood Glucose Crossmatch - Diagnostic Findings Chest x-ray: report reviewed, image reviewed Assessment and Plan Plan: Assessment: #1. Assessment: #1. Symptomatic calcific bicuspid aortic stenosis and insufficiency, status post aortic valve replacement with a mechanical valve, ligation of the left atrial appendage on 01/31/2022 #2. Routine ventilator management #3. History of hypertension #4. History of hyperlipidemia #5. Obesity with BMI of 39.4 kg/m #6. History of COVID19 infection #7. Coronary artery disease with previous stenting of the RCA Plan: Patient was seen and evaluated at the bedside Chest x-ray and blood gas reviewed Labs reviewed Ventilator adjustments have been made Continue weaning FiO2 per protocol Allow the patient to wake up and proceed with spontaneous breathing trials and extubation if weaning parameters are satisfactory Continue breathing treatments every 4 hours [id number] while on the vent and 4 times a day after extubation Incentive spirometer to the bedside Continue close hemodynamic monitoring GI and DVT prophylaxis and prophylactic antibiotics per cardiology and CT surgery Daily labs, and chest x-rays Anticoagulation initiation timing per CT surgery We'll continue to closely following the patient in the intensive care unit along with CT surgery and cardiology I have personally seen and examined the patient, performed the documentation and the assessment and plan as written. Number of minutes spent on the visit: [15] Time with Patient: Greater than 30
[2022-01-31 15:03] LABS: Glucose,Whole Blood 130 mg/dL (70-110)
[2022-01-31] MEDS ORDERED: IPRATROPIUM-ALBUTEROL 3 ML NEB INHALATION SCH (16:00)
[2022-01-31 16:06] LABS: Glucose,Whole Blood 133 mg/dL (70-110)
[2022-01-31] MEDS: HEPARIN SODIUM,PORCINE/PF 5,000 UNIT/0.5 ML SYRINGE SQ SCH (16:40)
[2022-01-31 16:58] LABS: Glucose,Whole Blood 142 mg/dL (70-110)
[2022-01-31 17:01] LABS: ABG Base Excess -3.1 mmol/L; ABG HCO3 24 mmol/L (21-25); ABG Oxygen Saturation 95.5 % (94-97); ABG PCO2 52 mmHg (35-45); ABG PH 7.27 (7.35-7.45); ABG PO2 79 mmHg (83-108); ABG TCO2 25 mmol/L (19-24); Allen Test Performed? Yes
[2022-01-31 17:22] LABS: Basophils % (A) 0 %; Eosinophils % (A) 0 %; HCT 39.2 % (39.0-53.0); HGB 13.3 gm/dL (13.0-17.5); Lymphocytes # (A) 1.6 k/uL (1.0-4.8); Lymphocytes % (A) 12 %; MCH 30.3 pg (25.0-35.0); MCHC 33.9 g/dL (31.0-37.0); MCV 89.5 fL (80.0-100.0); Mean Platelet Volume 7.9; Monocytes # (A) 0.6 k/uL (0-1.0); Monocytes % (A) 4 %; Neutrophils # (A) 11.4 k/uL (1.3-7.7); Neutrophils % (A) 82 %; Platelet Count 221 k/uL (150-450); RBC 4.38 m/uL (4.30-5.90); RDW 13.7 % (11.5-15.5); WBC 13.8 k/uL (3.8-10.6)
[2022-01-31] MEDS: KETOROLAC 15 MG/ML 1 ML VIAL IVP SCH (17:43)
[2022-01-31] MEDS: ACETAMINOPHEN IV (For NPO) 1,000 MG in EMPTY BAG 1 BAG IVPB SCH ×2 (17:43→23:20)
[2022-01-31] MEDS ORDERED: KETOROLAC 15 MG/ML 1 ML VIAL IVP SCH (18:00)
[2022-01-31 18:07] LABS: ABG Base Excess -3.7 mmol/L; ABG HCO3 23 mmol/L (21-25); ABG Oxygen Saturation 96.3 % (94-97); ABG PCO2 46 mmHg (35-45); ABG PO2 80 mmHg (83-108); ABG TCO2 24 mmol/L (19-24); Allen Test Performed? Yes
[2022-01-31 18:08] LABS: Glucose,Whole Blood 155 mg/dL (70-110)
[2022-01-31] MEDS ORDERED: MUPIROCIN 2% OINT 22 GM TUBE NASAL ONE (18:30)
[2022-01-31 19:00] LABS: Glucose,Whole Blood 155 mg/dL (70-110)
[2022-01-31 20:06] LABS: Glucose,Whole Blood 158 mg/dL (70-110)
[2022-01-31 20:25] LABS: Basophils % (A) 0 %; Eosinophils % (A) 0 %; HCT 38.1 % (39.0-53.0); HGB 12.7 gm/dL (13.0-17.5); Lymphocytes # (A) 0.9 k/uL (1.0-4.8); Lymphocytes % (A) 7 %; MCH 29.3 pg (25.0-35.0); MCHC 33.3 g/dL (31.0-37.0); Mean Platelet Volume 7.7; Monocytes # (A) 0.6 k/uL (0-1.0); Monocytes % (A) 5 %; Neutrophils # (A) 11.1 k/uL (1.3-7.7); Neutrophils % (A) 88 %; Platelet Count 187 k/uL (150-450); RBC 4.33 m/uL (4.30-5.90); RDW 13.3 % (11.5-15.5); WBC 12.6 k/uL (3.8-10.6)
[2022-01-31] MEDS: IPRATROPIUM-ALBUTEROL 3 ML NEB INHALATION SCH (20:43)
[2022-01-31] MEDS: ATORVASTATIN 80 MG TAB PO SCH (21:00)
[2022-01-31 21:22] LABS: ABG HCO3 23 mmol/L (21-25); ABG Oxygen Saturation 97.1 % (94-97); ABG PCO2 42 mmHg (35-45); ABG PH 7.34 (7.35-7.45); ABG PO2 83 mmHg (83-108); ABG TCO2 24 mmol/L (19-24); Allen Test Performed? Yes
[2022-01-31 21:24] LABS: Glucose,Whole Blood 159 mg/dL (70-110)
[2022-01-31] MEDS: AMIODARONE 450 MG in DEXTROSE 5% IN WATER 250 ML IV SCH ×2 (22:18)
[2022-01-31 22:19] LABS: Glucose,Whole Blood 141 mg/dL (70-110)
[2022-01-31 23:28] LABS: Glucose,Whole Blood 146 mg/dL (70-110)
[2022-02-01 00:04] LABS: Glucose,Whole Blood 144 mg/dL (70-110)
[2022-02-01] MEDS: HEPARIN SODIUM,PORCINE/PF 5,000 UNIT/0.5 ML SYRINGE SQ SCH ×3 (00:14→16:10)
[2022-02-01] MEDS: KETOROLAC 15 MG/ML 1 ML VIAL IVP SCH ×2 (00:15→06:38)
[2022-02-01] MEDS: MUPIROCIN 2% OINT 22 GM TUBE NASAL SCH ×3 (00:33→20:25)
[2022-02-01 01:10] LABS: Glucose,Whole Blood 149 mg/dL (70-110)
[2022-02-01] MEDS ORDERED: HYDROcodone/APAP 5-325MG 1 EACH TAB PO PRN (01:29)
[2022-02-01 02:16] LABS: Glucose,Whole Blood 146 mg/dL (70-110)
[2022-02-01 03:02] LABS: Glucose,Whole Blood 143 mg/dL (70-110)
[2022-02-01 04:06] LABS: Glucose,Whole Blood 137 mg/dL (70-110)
[2022-02-01 04:25] LABS: Basophils % (A) 0 %; Eosinophils % (A) 0 %; HCT 37.4 % (39.0-53.0); HGB 12.4 gm/dL (13.0-17.5); Lymphocytes # (A) 1.1 k/uL (1.0-4.8); Lymphocytes % (A) 10 %; MCH 29.6 pg (25.0-35.0); MCHC 33.1 g/dL (31.0-37.0); MCV 89.4 fL (80.0-100.0); Mean Platelet Volume 8.2; Monocytes # (A) 0.5 k/uL (0-1.0); Monocytes % (A) 5 %; Neutrophils # (A) 9.7 k/uL (1.3-7.7); Neutrophils % (A) 85 %; Platelet Count 164 k/uL (150-450); RBC 4.18 m/uL (4.30-5.90); RDW 13.7 % (11.5-15.5); WBC 11.4 k/uL (3.8-10.6)
[2022-02-01 05:59] LABS: Ionized Calcium 4.6 mg/dL (4.5-5.3)
[2022-02-01 06:01] LABS: Albumin 3.4 g/dL (3.5-5.0); Calcium 7.8 mg/dL (8.4-10.2); Magnesium 2.8 mg/dL (1.6-2.3); Potassium 4.6 mmol/L (3.5-5.1); Total Bilirubin 0.4 mg/dL (0.2-1.3); Total Protein 5.3 g/dL (6.3-8.2)
[2022-02-01 06:15] LABS: Glucose,Whole Blood 149 mg/dL (70-110)
[2022-02-01 07:12] LABS: Glucose,Whole Blood 148 mg/dL (70-110)
[2022-02-01] MEDS ORDERED: fentaNYL (PF) 50 MCG/ML 2 ML AMP IVP ONE ×2 (07:15→09:45)
--- NOTE | 2022-02-01 07:39 | P.CRDCN ---
History of Present Illness History of present illness: HISTORY OF PRESENTING ILLNESS Patient is a pleasant 51-year-old male with history of tobacco abuse, CAD status post stenting of the RCA, borderline diabetes mellitus type 2, hypertension, bi cuspid valve with moderate to severe aortic stenosis and moderate aortic insufficiency. He has had progressive dyspnea since June attributed to the aortic valve and therefore evaluated for valve surgery. Heart catheterization showed mild disease of the proximal RCA and a patent stent in the mid RCA. He underwent aortic valve replacement 01/31/2022 with a 25 mm On-X mechanical valve, ligation of the left atrial appendage. He still has mild chest discomfort around the incision. Denies any significant shortness breath. Not on any vasopressors. REVIEW OF SYSTEMS At the time of my exam: CONSTITUTIONAL: Denies fever or chills. CARDIOVASCULAR: Denies chest pain, +chronic shortness of breath, no orthopnea, PND or palpitations. RESPIRATORY: Denies cough. GASTROINTESTINAL: Denies abdominal pain, diarrhea, constipation, nausea or vomiting. MUSCULOSKELETAL: Denies myalgias. NEUROLOGIC: Denies numbness, tingling or weakness. ENDOCRINE: Denies fatigue, weight change, polydipsia or polyurina. GENITOURINARY: Denies burning, hematuria or urgency with micturation. HEMATOLOGIC: Denies history of anemia or bleeding. PHYSICAL EXAMINATION Vital signs reviewed. CONSTITUTIONAL: No apparent distress. HEENT: Head is normocephalic. Pupils are equal, round. Sclerae anicteric. Mucous membranes of the mouth are moist. No JVD. No carotid bruit. CHEST EXAMINATION: Lungs are clear to auscultation. No chest wall tenderness is noted on palpation or with deep breathing. HEART EXAMINATION: Regular rate and rhythm. S1, S2 heard. No murmurs, gallops or rub. ABDOMEN: Soft, nontender. Positive bowel sounds. EXTREMITIES: 2+ peripheral pulses, no lower extremity edema and no calf tenderness. NEUROLOGIC EXAMINATION: Patient is awake, alert and oriented x3. ASSESSMENT 1. Aortic stenosis and aortic insufficiency status post mechanical aortic valve 01/31 2. Hypertension 3. CAD with prior history of RCA stents with only mild disease by recent heart catheterization 4. Borderline diabetes mellitus 2 PLAN Continue supportive care. Patient appears to be progressing well. Aspirin and Plavix. Continue metoprolol and amiodarone for A. fib prophylaxis. Past Medical History Past Medical History: Coronary Artery Disease (CAD), COPD, Diabetes Mellitus, GERD/Reflux, Hyperlipidemia, Hypertension, Myocardial Infarction (ID), Osteoarthritis (OA), Pulmonary Embolus (PE) Additional Past Medical History / Comment(s): Bronchitis, gastric ulcer as a teen, hx. L leg cellulitis but not currently, chronic low back pain, vertigo, ?h x. of PE but discrepancy between & morteza if had, just had sleep study for possible sleep apnea, possible diabetes, states recent elevated HgbA1C Last Myocardial Infarction Date:: September 2021 History of Any Multi-Drug Resistant Organisms: None Reported Past Surgical History: Heart Catheterization With Stent Additional Past Surgical History / Comment(s): Egd, colonoscopy, YASH Past Anesthesia/Blood Transfusion Reactions: No Reported Reaction Date of Last Stent Placement:: February of 2019 Smoking Status: Current every day smoker - Past Family History Father Family Medical History: Coronary Artery Disease (CAD), Myocardial Infarction (ID) Additional Family Medical History / Comment(s): Father of ID at the age of 71 yrs. Sister(s) Family Medical History: No Reported History Additional Family Medical History / Comment(s): Sister has a heart murmur. Mother Family Medical History: Cancer Medications and Allergies Home Medications Medication Instructions Recorded Confirmed Type Aspirin 81 mg PO DAILY #30 chew 01/21/19 01/29/22 Rx Atorvastatin [Lipitor] 80 mg PO HS #30 tab 01/21/19 01/29/22 Rx Clopidogrel [Plavix] 75 mg PO DAILY #30 tab 01/21/19 01/29/22 Rx Nitroglycerin Sl Tabs [Nitrostat] 0.4 mg SUBLINGUAL Q5M PRN #25 tab 01/21/19 01/29/22 Rx Metoprolol Succinate [Toprol XL] 50 mg PO DAILY 03/26/21 01/29/22 History Albuterol Inhaler [Ventolin Hfa 2 puff INHALATION RT-QID PRN 10/01/21 01/29/22 History Inhaler] Ergocalciferol [Vitamin D2 (1250 1,250 mcg PO MO 10/01/21 01/29/22 History Mcg = 30697 Iu)] Losartan [Cozaar] 25 mg PO DAILY 10/01/21 01/29/22 History Fenofibrate [Lofibra] 160 mg PO DAILY 30 Days #30 tab 10/03/21 01/29/22 Rx lisinopriL [Zestril] 5 mg PO DAILY 01/29/22 01/29/22 History Fluticasone/Umeclidin/Vilanter 1 inhalation INHALATION DAILY 01/30/22 01/30/22 History [Trelegy Ellipta 100-62.5-25] Mupirocin [Mupirocin 2%] 1 applic NASAL BID #1 tub 01/30/22 Rx Allergies Allergy/AdvReac Type Severity Reaction Status Date / Time No Known Allergies Allergy Verified 01/29/22 09:21 Physical Exam Vitals: Vital Signs Temp Pulse Resp Pulse Ox FiO2 02/01/22 07:00 78 26 H 92 L 02/01/22 06:30 78 24 94 L 02/01/22 06:24 70 02/01/22 06:00 75 24 93 L 02/01/22 05:30 82 36 H 96 02/01/22 05:00 76 27 H 93 L 02/01/22 04:30 74 16 92 L 02/01/22 04:29 50 02/01/22 04:00 74 18 93 L 02/01/22 03:30 72 18 92 L 02/01/22 03:00 70 16 93 L 02/01/22 02:30 74 19 93 L 02/01/22 02:00 75 14 92 L 02/01/22 01:30 74 17 94 L 02/01/22 01:00 75 16 93 L 02/01/22 00:30 75 16 93 L 02/01/22 00:00 74 17 93 L 01/31/22 23:51 50 01/31/22 23:30 74 19 94 L 01/31/22 23:00 75 25 H 93 L 01/31/22 22:30 78 18 93 L 01/31/22 22:00 75 18 94 L 01/31/22 21:30 76 23 92 L 01/31/22 21:00 80 15 97 01/31/22 20:45 78 50 01/31/22 20:30 79 18 94 L 01/31/22 20:00 80 20 94 L 01/31/22 19:30 85 26 H 94 L 01/31/22 19:00 82 21 95 50 01/31/22 18:30 87 22 95 50 01/31/22 18:21 50 08/18/22 18:14 50 01/31/22 18:00 83 23 92 L 50 01/31/22 17:30 86 23 94 L 50 01/31/22 17:10 50 01/31/22 17:00 87 22 93 L 50 01/31/22 16:38 87 20 01/31/22 16:30 87 22 93 L 60 01/31/22 16:28 89 21 01/31/22 16:15 60 01/31/22 16:00 98.6 F 98 21 92 L 60 01/31/22 15:30 92 17 94 L 60 01/31/22 15:06 70 01/31/22 15:00 87 15 94 L 80 01/31/22 14:30 89 16 94 L 80 01/31/22 14:10 82 16 93 L 80 01/31/22 14:06 80 01/31/22 14:00 86 16 96 100 01/31/22 13:50 85 12 97 100 01/31/22 13:40 97.3 F L 77 12 97 100 01/31/22 13:35 100 Intake and Output 01/31/22 02/01/22 02/01/22 22:59 06:59 14:59 Intake Total 1307.012 765.225 Output Total 553 563 Balance 754.012 202.225 Intake: IV 402 651 0.9 ns pressure bag 72 81 Lactated Ringers 1,000 ml 150 450 @ 50 mls/hr IV .Q20H [facility] Rx#:[id number] cardiac outpt 180 120 Intake, IV Titration 305.012 14.225 Amount Dexmedetomidine/0.9% NaCl 23.934 (Pmx) 400 mcg In Empty Bag 1 bag @ Titrate IV . Q0M [facility] Rx#:[id number] Insulin Regular 100 unit 14.234 14.225 In Sodium Chloride 0.9% 100 ml @ Per Protocol IV .Q0M [facility] Rx#:[id number] Lactated Ringers 1,000 ml 250 @ 50 mls/hr IV .Q20H [facility] Rx#:[id number] propofoL 1,000 mg In 16.844 Empty Bag 1 bag @ Titrate IV .Q0M [facility] Rx#: [id number] Oral 600 100 Output: Chest Tube Drainage 109 272 Chest Tube Left Pleural/ 109 272 Mediastinal Urine 444 291 Other: Voiding Method Indwelling Catheter Indwelling Catheter Weight 119.1 kg ABP, PAP, CO, CI - Last 8 Hours Arterial Blood Pressure 127/66 Arterial Blood Pressure 114/72 Arterial Blood Pressure 110/61 Arterial Blood Pressure 137/56 Arterial Blood Pressure 122/63 Arterial Blood Pressure 123/61 Arterial Blood Pressure 141/63 Arterial Blood Pressure 137/63 Arterial Blood Pressure 97/64 Arterial Blood Pressure 126/64 Arterial Blood Pressure 122/61 Arterial Blood Pressure 118/59 Arterial Blood Pressure 133/61 Arterial Blood Pressure 127/58 Arterial Blood Pressure 119/63 Pulmonary Artery Pressure 29/13 Pulmonary Artery Pressure 30/18 Pulmonary Artery Pressure 30/16 Pulmonary Artery Pressure 45/15 Pulmonary Artery Pressure 35/21 Pulmonary Artery Pressure 31/10 Pulmonary Artery Pressure 33/19 Pulmonary Artery Pressure 27/16 Pulmonary Artery Pressure 29/16 Pulmonary Artery Pressure 30/20 Pulmonary Artery Pressure 30/18 Pulmonary Artery Pressure 29/18 Pulmonary Artery Pressure 32/13 Pulmonary Artery Pressure 33/16 Pulmonary Artery Pressure 32/17 Cardiac Output 5.5 Cardiac Output 5.1 Cardiac Output 6.6 Cardiac Output 5.2 Cardiac Index 2.5 Cardiac Index 2.3 Cardiac Index 3 Cardiac Index 2.3 Results 02/01/22 04:00 02/01/22 04:00 Cardiac Enzymes 01/31/22 02/01/22 Range/Units 13:40 04:00 AST 49 53 (17-59) U/L Coagulation 01/31/22 Range/Units 13:40 PT 11.3 (9.0-12.0) sec APTT 34.1 H (22.0-30.0) sec CBC 01/31/22 01/31/22 01/31/22 Range/Units 13:40 16:53 20:00 WBC 17.0 H 13.8 H 12.6 H (3.8-10.6) k/uL RBC 4.54 4.38 4.33 (4.30-5.90) m/uL Hgb 13.2 13.3 12.7 L (13.0-17.5) gm/dL Hct 40.2 39.2 38.1 L (39.0-53.0) % Plt Count 231 221 187 (150-450) k/uL 02/01/22 Range/Units 04:00 WBC 11.4 H (3.8-10.6) k/uL RBC 4.18 L (4.30-5.90) m/uL Hgb 12.4 L (13.0-17.5) gm/dL Hct 37.4 L (39.0-53.0) % Plt Count 164 (150-450) k/uL Comprehensive Metabolic Panel 01/31/22 02/01/22 Range/Units 13:40 04:00 Sodium 138 135 L (137-145) mmol/L Potassium 5.1 4.6 (3.5-5.1) mmol/L Chloride 108 H 106 (98-107) mmol/L Carbon Dioxide 21 L 21 L (22-30) mmol/L BUN 12 17 (9-20) mg/dL Creatinine 1.06 1.23 (0.66-1.25) mg/dL Glucose 126 H 135 H (74-99) mg/dL Calcium 8.0 L 7.8 L (8.4-10.2) mg/dL AST 49 53 (17-59) U/L ALT 18 21 (4-49) U/L Alkaline Phosphatase 62 58 (38-126) U/L Total Protein 4.9 L 5.3 L (6.3-8.2) g/dL Albumin 3.0 L 3.4 L (3.5-5.0) g/dL Current Medications Generic Name Dose Route Start Last Admin Trade Name Freq PRN Reason Stop Dose Admin Hydrocodone Bitart/Acetaminophen 2 each 02/01/22 01:29 Hydrocodone/Apap 5-325mg 1 Each Tab PO Q4HR PRN Severe Pain Hydrocodone Bitart/Acetaminophen 1 each 02/01/22 01:29 02/01/22 03:18 Hydrocodone/Apap 5-325mg 1 Each Tab PO 1 each Q4HR PRN Administration Moderate Pain Albuterol/Ipratropium 3 ml 01/31/22 13:38 Ipratropium-Albuterol 3 Ml Neb INHALATION RT-Q2H PRN Shortness Of Breath Or Wheezing Albuterol/Ipratropium 3 ml 01/31/22 20:00 01/31/22 20:43 Ipratropium-Albuterol 3 Ml Neb INHALATION 3 ml RT-QID [facility] Administration Amiodarone HCl 400 mg 02/01/22 09:00 Amiodarone 200 Mg Tab PO 02/08/22 09:01 BID [facility] Aspirin 325 mg 02/01/22 09:00 Aspirin 325 Mg Tab PO DAILY [facility] Atorvastatin Calcium 80 mg 01/31/22 21:00 01/31/22 21:00 Atorvastatin 80 Mg Tab PO 80 mg HS [facility] Administration Benzocaine/Menthol 1 each 01/31/22 13:38 Benzocaine/Menthol Lozeng 1 Each Lozenge MUCOUS MEM Q2H PRN Sore Throat Bisacodyl 10 mg 02/01/22 09:00 Bisacodyl 10 Mg Supp RECTAL DAILY PRN Constipation Budesonide/Formoterol Fumarate 2 puff 02/01/22 09:00 Symbicort 80-4.5 Mcg Inhaler INHALATION BID [facility] Clopidogrel Bisulfate 75 mg 02/01/22 09:00 Clopidogrel 75 Mg Tab PO DAILY [facility] Dextrose/Water 25 ml 01/31/22 13:38 Dextrose 50% Syringe 50 Ml IVP PER PROTOCOL PRN Hypoglycemia Protocol Dextrose/Water 50 ml 01/31/22 13:38 Dextrose 50% Syringe 50 Ml IVP PER PROTOCOL PRN Hypoglycemia Protocol Ergocalciferol 1,250 mcg 02/04/22 09:00 Ergocalciferol 1,250 Mcg (50,000 Iu) Capsule PO MO [facility] Fenofibrate 160 mg 02/01/22 09:00 Fenofibrate 160 Mg Tab PO DAILY [facility] Heparin Sodium (Porcine) 5,000 unit 01/31/22 16:00 02/01/22 00:14 Heparin Sodium,Porcine/Pf 5,000 Unit/0.5 Ml Syringe SQ 5,000 unit Q8HR [facility] Administration Hydralazine HCl 10 mg 01/31/22 13:38 Hydralazine Hcl 20 Mg/Ml 1 Ml Vial IVP Q1H PRN Blood Pressure - High Albumin Human 250 ml/ IV 250 mls @ 250 mls/hr 01/31/22 13:38 01/31/22 14:53 Solution IVPB 02/02/22 13:39 250 mls/hr Q1HR PRN Administration For Volume Protocol Lactated Ringer's 1,000 mls @ 50 mls/hr 01/31/22 13:38 01/31/22 14:22 Lactated Ringers IV 50 mls/hr .Q20H [facility] Administration Cefazolin Sodium 2 gm/ Sodium 50 mls @ 100 mls/hr 01/31/22 16:00 02/01/22 00:30 Chloride IVPB 02/01/22 08:29 100 mls/hr Q8HR [facility] Administration Protocol Calcium Gluconate/Sodium 100 mls @ 100 mls/hr 01/31/22 13:38 Chloride 2 gm/ IV Solution IVPB 02/03/22 13:39 ONCE PRN Ionized Calcium less than 4.4 Insulin Human Regular 100 unit 101 mls @ 0 mls/hr 01/31/22 13:38 02/01/22 04:31 / Sodium Chloride IV 2 ml/hr .Q0M [facility] 2 mls/hr Titration Protocol Per Protocol Ketorolac Tromethamine 15 mg 01/31/22 18:00 02/01/22 06:38 Ketorolac 15 Mg/Ml 1 Ml Vial IVP 02/03/22 15:42 15 mg Q6HR [facility] Administration Magnesium Hydroxide 2,400 mg 02/01/22 09:00 Magnesium Hydroxide 2,400 Mg/10 Ml Cup PO BID PRN Constipation Metoclopramide HCl 10 mg 01/31/22 13:38 Metoclopramide 5 Mg/Ml 2 Ml Vial IVP Q4H PRN Nausea And Vomiting Metoprolol Tartrate 25 mg 02/01/22 09:00 Metoprolol Tartrate 25 Mg Tab PO BID [facility] Miscellaneous Information 1 each 01/31/22 13:38 Potassium Replacement Protocol 1 Each Misc MISCELLANE DAILY PRN Per Protocol Protocol Miscellaneous Information 1 each 01/31/22 13:38 Magnesium Replacement Protocol 1 Each Misc MISCELLANE DAILY PRN Per Protocol Protocol Mupirocin 1 applic 01/31/22 21:00 02/01/22 00:33 Mupirocin 2% Oint 22 Gm Tube NASAL 02/03/22 21:01 1 applic BID [facility] Administration Ondansetron HCl 4 mg 01/31/22 13:38 Ondansetron 4 Mg/2 Ml Vial IVP Q6HR PRN Nausea And Vomiting Pantoprazole Sodium 40 mg 02/01/22 09:00 Pantoprazole 40 Mg/10 Ml Vial IVP DAILY [facility] Senna/Docusate Sodium 2 each 02/01/22 21:00 Sennosides-Docusate Sodium 1 Each Tab PO HS [facility] Sodium Chloride 10 ml 01/31/22 21:00 01/31/22 23:21 Sodium Chloride 0.9% Flush 10 Ml Syringe IV Not Given BID [facility] Intake and Output 01/31/22 02/01/22 02/01/22 22:59 06:59 14:59 Intake Total 1307.012 765.225 Output Total 553 563 Balance 754.012 202.225 Intake: IV 402 651 0.9 ns pressure bag 72 81 Lactated Ringers 1,000 ml 150 450 @ 50 mls/hr IV .Q20H [facility] Rx#:[id number] cardiac outpt 180 120 Intake, IV Titration 305.012 14.225 Amount Dexmedetomidine/0.9% NaCl 23.934 (Pmx) 400 mcg In Empty Bag 1 bag @ Titrate IV . Q0M [facility] Rx#:[id number] Insulin Regular 100 unit 14.234 14.225 In Sodium Chloride 0.9% 100 ml @ Per Protocol IV .Q0M [facility] Rx#:[id number] Lactated Ringers 1,000 ml 250 @ 50 mls/hr IV .Q20H [facility] Rx#:[id number] propofoL 1,000 mg In 16.844 Empty Bag 1 bag @ Titrate IV .Q0M [facility] Rx#: [id number] Oral 600 100 Output: Chest Tube Drainage 109 272 Chest Tube Left Pleural/ 109 272 Mediastinal Urine 444 291 Other: Voiding Method Indwelling Catheter Indwelling Catheter Weight 119.1 kg 02/01/22 04:00 02/01/22 04:00
[2022-02-01] MEDS ORDERED: FUROSEMIDE 10 MG/ML 2 ML VIAL IV ONE (08:00)
--- NOTE | 2022-02-01 08:02 | XR ---
EXAMINATION TYPE: XR chest 1V portable DATE OF EXAM: 02/01/2022 COMPARISON: 01/31/2022 HISTORY: Post Operative Cardiac Surgery TECHNIQUE: Single view of the chest is submitted. FINDINGS: Endotracheal tube and NG tube have been removed. SG catheter, mediastinal drains and chest tubes are appropriately placed. Post operative changes of CABG. No sizeable pneumothorax. Scattered Pleural-parenchymal opacities may reflect atelectasis. The heart mildly enlarged. IMPRESSION: 1. Post operative changes of CABG.
[2022-02-01] MEDS: HYDROcodone/APAP 5-325MG 1 EACH TAB PO PRN ×2 (08:14→12:19)
[2022-02-01] MEDS: METOPROLOL TARTRATE 25 MG TAB PO SCH ×2 (08:14→20:24)
[2022-02-01] MEDS: ASPIRIN 325 MG TAB PO SCH (08:14)
[2022-02-01] MEDS: AMIODARONE 200 MG TAB PO SCH ×2 (08:14→20:24)
[2022-02-01] MEDS: FENOFIBRATE 160 MG TAB PO SCH (08:19)
[2022-02-01] MEDS ORDERED: CALCIUM GLUCONATE IN NACL 1 GM in SALINE 1 100ML.BAG IVPB ONE (08:30)
[2022-02-01 08:32] LABS: Glucose,Whole Blood 148 mg/dL (70-110)
[2022-02-01] MEDS: IPRATROPIUM-ALBUTEROL 3 ML NEB INHALATION SCH ×4 (08:35→20:24)
[2022-02-01] MEDS: SYMBICORT 80-4.5 MCG INHALER INHALATION SCH ×2 (08:38→20:24)
[2022-02-01] MEDS ORDERED: MAGNESIUM HYDROXIDE 2,400 MG/10 ML CUP PO PRN (09:00)
[2022-02-01] MEDS ORDERED: CLOPIDOGREL 75 MG TAB PO SCH (09:00)
[2022-02-01] MEDS ORDERED: PANTOPRAZOLE 40 MG/10 ML VIAL IVP SCH (09:00)
[2022-02-01] MEDS ORDERED: METOPROLOL TARTRATE 12.5 MG TAB PO SCH (09:00)
[2022-02-01] MEDS: ONDANSETRON 4 MG/2 ML VIAL IVP PRN (09:28)
--- NOTE | 2022-02-01 09:52 | P.PN ---
Subjective Progress Note Date: 02/01/22 Principal diagnosis: Bicuspid calcific aortic stenosis/insufficiency. Past medical history significant for hypertension, hyperlipidemia, COPD, obstructive sleep apnea without home CPAP use, COVID-19 in June 2021, coronary artery disease with history of stent placement to his right coronary artery in 2018, occasional tobacco use smokes an occasional cigar, family history of coronary artery disease with his father having a myocardial infarction, chronic lower back pain and history of pulmonary embolus in which he was on Eliquis for anticoagulation. POD #1 aortic valve replacement with a 25 mm On-X mechanical valve, ligation of the left atrial appendage with a 35 mm Atricure clip, it aortic ultrasonography, patch closure of aortotomy with bovine pericardium area Postoperative acute blood loss anemia, expected given hemodilution and no pulmonary bypass. The patient was seen and examined in follow-up today 02/01/2022 at his bedside in the intensive care unit. He was successfully extubated at 6:15 PM last evening, was placed on BiPAP 14/6 with FiO2 60% and oxygen saturations 95%. Currently he is on high flow nasal cannula at 15 L with oxygen saturation 92%. He is achieving 1000 mL on his incentive spirometry. He denies any complaints of shortness of breath at this time although is complaining of some surgical type pain to his chest tube insertion site. He rates his pain 6 out of 10 on the pain scale with just sitting still and 10 out of 10 on the pain scale with taking a deep breath. He denies any nausea or vomiting. He remains hemodynamically stable and is currently on no inotropic pressor support. Right IJ Fallbrook-Charisma catheter and Cordis in place with current hemodynamic showing a cardiac output of 5.5, cardiac index 2.5, PA pressures 28/13 and CVP 14 mmHg. Bedside telemetry showing normal sinus rhythm heart rate 78 BPM. Amiodarone drip remains in place at 0.5 mg/m per protocol. Mediastinal and left pleural chest tube remained in place to low continuous wall suction -20 cm H2O. No air leak is present. Draining thin serosanguineous drainage with 250 mL output in the last 8 hours and 360 mL output since surgery. Laboratory results this morning show a WBC count of 11.4, hemoglobin 12.4, hematocrit 37.4, platelets 164, sodium 135, potassium 4.6, chloride 108, CO2 21, BUN 17, creatinine 1.23, glucose 135, calcium 7.8, ionized calcium 4.6 and magnesium 2.8. He is currently sitting up to the bedside chair, is awake, alert, oriented 3 and is in no apparent acute distress. Objective - Vital Signs Vital signs: Vital Signs Temp 98.6 F 02/01/22 08:00 Pulse 70 02/01/22 08:00 Resp 22 02/01/22 08:00 BP 130/69 01/31/22 06:06 Pulse Ox 92 L 02/01/22 08:00 FiO2 70 02/01/22 06:24 Intake & Output 01/31/22 02/01/22 02/01/22 18:59 06:59 18:59 Intake Total 745.288 7543.517 59 Output Total 2470 782 40 Balance -1958.280 909.517 19 Weight 119.1 kg Intake: IV 217 917 59 0.9 ns pressure bag 45 117 9 Lactated Ringers 1,000 ml 600 50 @ 20 mls/hr IV .Q24H [facility] Rx#:[id number] cardiac outpt 120 200 Intake, IV Titration 294.720 74.517 Amount Dexmedetomidine/0.9% NaCl 23.934 (Pmx) 400 mcg In Empty Bag 1 bag @ Titrate IV . Q0M [facility] Rx#:[id number] Insulin Regular 100 unit 3.942 24.517 In Sodium Chloride 0.9% 100 ml @ Per Protocol IV .Q0M [facility] Rx#:[id number] Lactated Ringers 1,000 ml 250 50 @ 20 mls/hr IV .Q24H [facility] Rx#:[id number] propofoL 1,000 mg In 16.844 Empty Bag 1 bag @ Titrate IV .Q0M [facility] Rx#: [id number] Oral 700 Output: Chest Tube Drainage 100 322 20 Chest Tube Left Pleural/ 100 322 20 Mediastinal Urine 870 460 20 Estimated Blood Loss 1500 Other: Voiding Method Indwelling Catheter Indwelling Catheter ABP, PAP, CO, CI - Last Documented Arterial Blood Pressure 125/58 Pulmonary Artery Pressure 27/10 Cardiac Output 5.5 Cardiac Index 2.5 - Exam CONSTITUTIONAL: Sitting up to the bedside chair in the intensive care unit, appears comfortable, cooperative, no apparent acute distress. HEENT: Neck is supple, no JVD, no lymphadenopathy. Right IJ Cordis and Fallbrook- Charisma catheter in place and functioning. RESPIRATORY: Lungs sounds essentially clear throughout, diminished to his bilateral bases. Respirations are symmetrical and nonlabored. Currently on 15 L high flow nasal cannula with oxygen saturations 92%. Able to achieve 1000 mL on his incentive spirometry. Strong cough. CARDIOVASCULAR: Regular rhythm and rate. S1 and S2 present with mechanical valvular click, negative for S3, gallop or murmur. Sternum is stable. Pa lpable peripheral pulses bilaterally, no edema to his bilateral lower extremities. No calf pain or tenderness noted. Heart hugger in place with patient demonstrating appropriate use. Knee-high MICHELLE hose and sequential compression devices in place to his bilateral lower extremities. GASTROINTESTINAL: Abdomen soft, nontender, nondistended. Hypoactive bowel sounds present 4 quadrants. Tolerating diet. Denies passing flatus. No guarding or rigidity. GENITOURINARY: Garcia present draining clear, yellow urine. Urine output 270 mL in the last 8 hours. INTEGUMENTARY: Skin is warm and dry with no evidence of clubbing or cyanosis. Midline sternal incision clean dry and well approximated, covered with dry intact dressing. NEUROLOGIC: Cranial nerves II through XII intact. No focal deficits. MUSKULOSKELETAL: Able to move all extremities, strength equal bilaterally, generalized weakness. PSYCHIATRIC: Alert and oriented to person place and time, appropriate affect, intact judgment and insight. INVASIVE LINES AND TUBES: Mediastinal/left pleural chest tubes present and connected to low continuous wall suction, no air leaks present. Mediastinal/left pleural chest tubes with 250 mL of thin serosanguineous drainage overnight, 360 mL output since surgery. Atrial and ventricular epi cardial pacemaker wires present, connected to generator, VVI backup rate 50 bpm. Right internal jugular Fallbrook/Cordis, right radial arterial line present. Last CO 5.5, CI 2.5, PA 28/13 and CVP 14 mmHg. - Allied health notes Allied health notes reviewed: nursing - Labs CBC & Chem 7: 02/01/22 04:00 02/01/22 04:00 Labs: Abnormal Lab Results - Last 24 Hours (Table) 01/29/22 01/31/22 01/31/22 Range/Units 07:25 09:34 10:15 WBC (3.8-10.6) k/uL RBC (4.30-5.90) m/uL Hgb (13.0-17.5) gm/dL Hct (39.0-53.0) % Neutrophils # (1.3-7.7) k/uL Lymphocytes # (1.0-4.8) k/uL APTT (22.0-30.0) sec ABG pH 7.26 L 7.32 L (7.35-7.45) ABG pCO2 54 H 47 H (35-45) mmHg ABG pO2 194 H (83-108) mmHg ABG Total CO2 26 H 26 H (19-24) mmol/L ABG O2 Saturation 99.1 H (94-97) % ABG Hematocrit (34.0-46.0) % ABG Sodium (135-146) mmol/L ABG Potassium (3.4-4.5) mmol/L ABG Ionized Calcium (4.5-5.3) mg/dL ABG Glucose 134 H 142 H (75-99) mg/dL ABG Lactic Acid (0.5-1.6) mmol/L Hemoglobin (13.0-17.5) gm/dL Sodium (137-145) mmol/L Chloride (98-107) mmol/L Carbon Dioxide (22-30) mmol/L Glucose (74-99) mg/dL POC Glucose (mg/dL) (70-110) mg/dL Calcium (8.4-10.2) mg/dL Magnesium (1.6-2.3) mg/dL Total Protein (6.3-8.2) g/dL Albumin (3.5-5.0) g/dL Arterial Blood Potassium (3.4-4.5) mmol/L Arterial Blood Glucose 134 H 142 H (75-99) mg/dL Crossmatch See Detail 01/31/22 01/31/22 01/31/22 Range/Units 10:51 11:00 11:13 WBC (3.8-10.6) k/uL RBC (4.30-5.90) m/uL Hgb (13.0-17.5) gm/dL Hct (39.0-53.0) % Neutrophils # (1.3-7.7) k/uL Lymphocytes # (1.0-4.8) k/uL APTT (22.0-30.0) sec ABG pH 7.23 L 7.23 L 7.25 L (7.35-7.45) ABG pCO2 55 H 52 H 49 H (35-45) mmHg ABG pO2 231 H 297 H (83-108) mmHg ABG Total CO2 25 H (19-24) mmol/L ABG O2 Saturation 97.2 H 99.3 H 99.7 H (94-97) % ABG Hematocrit 33 L 33 L 33 L (34.0-46.0) % ABG Sodium 133 L 134 L 133 L (135-146) mmol/L ABG Potassium 5.1 H 5.0 H 5.2 H (3.4-4.5) mmol/L ABG Ionized Calcium 4.4 L 4.4 L (4.5-5.3) mg/dL ABG Glucose 150 H 162 H 161 H (75-99) mg/dL ABG Lactic Acid (0.5-1.6) mmol/L Hemoglobin 10.8 L 10.7 L 10.8 L (13.0-17.5) gm/dL Sodium (137-145) mmol/L Chloride (98-107) mmol/L Carbon Dioxide (22-30) mmol/L Glucose (74-99) mg/dL POC Glucose (mg/dL) (70-110) mg/dL Calcium (8.4-10.2) mg/dL Magnesium (1.6-2.3) mg/dL Total Protein (6.3-8.2) g/dL Albumin (3.5-5.0) g/dL Arterial Blood Potassium 5.1 H 5.0 H 5.2 H (3.4-4.5) mmol/L Arterial Blood Glucose 150 H 162 H 161 H (75-99) mg/dL Crossmatch 01/31/22 01/31/22 01/31/22 Range/Units 11:43 13:38 13:40 WBC 17.0 H (3.8-10.6) k/uL RBC (4.30-5.90) m/uL Hgb (13.0-17.5) gm/dL Hct (39.0-53.0) % Neutrophils # 14.2 H (1.3-7.7) k/uL Lymphocytes # (1.0-4.8) k/uL APTT (22.0-30.0) sec ABG pH (7.35-7.45) ABG pCO2 (35-45) mmHg ABG pO2 257 H (83-108) mmHg ABG Total CO2 25 H (19-24) mmol/L ABG O2 Saturation 99.8 H (94-97) % ABG Hematocrit 32 L (34.0-46.0) % ABG Sodium 134 L (135-146) mmol/L ABG Potassium 5.5 H (3.4-4.5) mmol/L ABG Ionized Calcium 4.3 L (4.5-5.3) mg/dL ABG Glucose 161 H (75-99) mg/dL ABG Lactic Acid 1.8 H (0.5-1.6) mmol/L Hemoglobin 10.4 L (13.0-17.5) gm/dL Sodium (137-145) mmol/L Chloride (98-107) mmol/L Carbon Dioxide (22-30) mmol/L Glucose (74-99) mg/dL POC Glucose (mg/dL) 137 H (70-110) mg/dL Calcium (8.4-10.2) mg/dL Magnesium (1.6-2.3) mg/dL Total Protein (6.3-8.2) g/dL Albumin (3.5-5.0) g/dL Arterial Blood Potassium 5.5 H (3.4-4.5) mmol/L Arterial Blood Glucose 161 H (75-99) mg/dL Crossmatch 01/31/22 01/31/22 01/31/22 Range/Units 13:40 13:40 13:50 WBC (3.8-10.6) k/uL RBC (4.30-5.90) m/uL Hgb (13.0-17.5) gm/dL Hct (39.0-53.0) % Neutrophils # (1.3-7.7) k/uL Lymphocytes # (1.0-4.8) k/uL APTT 34.1 H (22.0-30.0) sec ABG pH 7.22 L (7.35-7.45) ABG pCO2 61 H (35-45) mmHg ABG pO2 116 H (83-108) mmHg ABG Total CO2 27 H (19-24) mmol/L ABG O2 Saturation 98.4 H (94-97) % ABG Hematocrit (34.0-46.0) % ABG Sodium (135-146) mmol/L ABG Potassium (3.4-4.5) mmol/L ABG Ionized Calcium (4.5-5.3) mg/dL ABG Glucose (75-99) mg/dL ABG Lactic Acid (0.5-1.6) mmol/L Hemoglobin (13.0-17.5) gm/dL Sodium (137-145) mmol/L Chloride 108 H (98-107) mmol/L Carbon Dioxide 21 L (22-30) mmol/L Glucose 126 H (74-99) mg/dL POC Glucose (mg/dL) (70-110) mg/dL Calcium 8.0 L (8.4-10.2) mg/dL Magnesium 3.7 H (1.6-2.3) mg/dL Total Protein 4.9 L (6.3-8.2) g/dL Albumin 3.0 L (3.5-5.0) g/dL Arterial Blood Potassium (3.4-4.5) mmol/L Arterial Blood Glucose (75-99) mg/dL Crossmatch 01/31/22 01/31/22 01/31/22 Range/Units 14:01 15:01 16:04 WBC (3.8-10.6) k/uL RBC (4.30-5.90) m/uL Hgb (13.0-17.5) gm/dL Hct (39.0-53.0) % Neutrophils # (1.3-7.7) k/uL Lymphocytes # (1.0-4.8) k/uL APTT (22.0-30.0) sec ABG pH (7.35-7.45) ABG pCO2 (35-45) mmHg ABG pO2 (83-108) mmHg ABG Total CO2 (19-24) mmol/L ABG O2 Saturation (94-97) % ABG Hematocrit (34.0-46.0) % ABG Sodium (135-146) mmol/L ABG Potassium (3.4-4.5) mmol/L ABG Ionized Calcium (4.5-5.3) mg/dL ABG Glucose (75-99) mg/dL ABG Lactic Acid (0.5-1.6) mmol/L Hemoglobin (13.0-17.5) gm/dL Sodium (137-145) mmol/L Chloride (98-107) mmol/L Carbon Dioxide (22-30) mmol/L Glucose (74-99) mg/dL POC Glucose (mg/dL) 135 H 130 H 133 H (70-110) mg/dL Calcium (8.4-10.2) mg/dL Magnesium (1.6-2.3) mg/dL Total Protein (6.3-8.2) g/dL Albumin (3.5-5.0) g/dL Arterial Blood Potassium (3.4-4.5) mmol/L Arterial Blood Glucose (75-99) mg/dL Crossmatch 01/31/22 01/31/22 01/31/22 Range/Units 16:53 16:55 16:57 WBC 13.8 H (3.8-10.6) k/uL RBC (4.30-5.90) m/uL Hgb (13.0-17.5) gm/dL Hct (39.0-53.0) % Neutrophils # 11.4 H (1.3-7.7) k/uL Lymphocytes # (1.0-4.8) k/uL APTT (22.0-30.0) sec ABG pH 7.27 L (7.35-7.45) ABG pCO2 52 H (35-45) mmHg ABG pO2 79 L (83-108) mmHg ABG Total CO2 25 H (19-24) mmol/L ABG O2 Saturation (94-97) % ABG Hematocrit (34.0-46.0) % ABG Sodium (135-146) mmol/L ABG Potassium (3.4-4.5) mmol/L ABG Ionized Calcium (4.5-5.3) mg/dL ABG Glucose (75-99) mg/dL ABG Lactic Acid (0.5-1.6) mmol/L Hemoglobin (13.0-17.5) gm/dL Sodium (137-145) mmol/L Chloride (98-107) mmol/L Carbon Dioxide (22-30) mmol/L Glucose (74-99) mg/dL POC Glucose (mg/dL) 142 H (70-110) mg/dL Calcium (8.4-10.2) mg/dL Magnesium (1.6-2.3) mg/dL Total Protein (6.3-8.2) g/dL Albumin (3.5-5.0) g/dL Arterial Blood Potassium (3.4-4.5) mmol/L Arterial Blood Glucose (75-99) mg/dL Crossmatch 01/31/22 01/31/22 01/31/22 Range/Units 18:03 18:06 18:59 WBC (3.8-10.6) k/uL RBC (4.30-5.90) m/uL Hgb (13.0-17.5) gm/dL Hct (39.0-53.0) % Neutrophils # (1.3-7.7) k/uL Lymphocytes # (1.0-4.8) k/uL APTT (22.0-30.0) sec ABG pH 7.30 L (7.35-7.45) ABG pCO2 46 H (35-45) mmHg ABG pO2 80 L (83-108) mmHg ABG Total CO2 (19-24) mmol/L ABG O2 Saturation (94-97) % ABG Hematocrit (34.0-46.0) % ABG Sodium (135-146) mmol/L ABG Potassium (3.4-4.5) mmol/L ABG Ionized Calcium (4.5-5.3) mg/dL ABG Glucose (75-99) mg/dL ABG Lactic Acid (0.5-1.6) mmol/L Hemoglobin (13.0-17.5) gm/dL Sodium (137-145) mmol/L Chloride (98-107) mmol/L Carbon Dioxide (22-30) mmol/L Glucose (74-99) mg/dL POC Glucose (mg/dL) 155 H 155 H (70-110) mg/dL Calcium (8.4-10.2) mg/dL Magnesium (1.6-2.3) mg/dL Total Protein (6.3-8.2) g/dL Albumin (3.5-5.0) g/dL Arterial Blood Potassium (3.4-4.5) mmol/L Arterial Blood Glucose (75-99) mg/dL Crossmatch 01/31/22 01/31/22 01/31/22 Range/Units 20:00 20:03 21:20 WBC 12.6 H (3.8-10.6) k/uL RBC (4.30-5.90) m/uL Hgb 12.7 L (13.0-17.5) gm/dL Hct 38.1 L (39.0-53.0) % Neutrophils # 11.1 H (1.3-7.7) k/uL Lymphocytes # 0.9 L (1.0-4.8) k/uL APTT (22.0-30.0) sec ABG pH 7.34 L (7.35-7.45) ABG pCO2 (35-45) mmHg ABG pO2 (83-108) mmHg ABG Total CO2 (19-24) mmol/L ABG O2 Saturation 97.1 H (94-97) % ABG Hematocrit (34.0-46.0) % ABG Sodium (135-146) mmol/L ABG Potassium (3.4-4.5) mmol/L ABG Ionized Calcium (4.5-5.3) mg/dL ABG Glucose (75-99) mg/dL ABG Lactic Acid (0.5-1.6) mmol/L Hemoglobin (13.0-17.5) gm/dL Sodium (137-145) mmol/L Chloride (98-107) mmol/L Carbon Dioxide (22-30) mmol/L Glucose (74-99) mg/dL POC Glucose (mg/dL) 158 H (70-110) mg/dL Calcium (8.4-10.2) mg/dL Magnesium (1.6-2.3) mg/dL Total Protein (6.3-8.2) g/dL Albumin (3.5-5.0) g/dL Arterial Blood Potassium (3.4-4.5) mmol/L Arterial Blood Glucose (75-99) mg/dL Crossmatch 01/31/22 01/31/22 01/31/22 Range/Units 21:23 22:17 23:26 WBC (3.8-10.6) k/uL RBC (4.30-5.90) m/uL Hgb (13.0-17.5) gm/dL Hct (39.0-53.0) % Neutrophils # (1.3-7.7) k/uL Lymphocytes # (1.0-4.8) k/uL APTT (22.0-30.0) sec ABG pH (7.35-7.45) ABG pCO2 (35-45) mmHg ABG pO2 (83-108) mmHg ABG Total CO2 (19-24) mmol/L ABG O2 Saturation (94-97) % ABG Hematocrit (34.0-46.0) % ABG Sodium (135-146) mmol/L ABG Potassium (3.4-4.5) mmol/L ABG Ionized Calcium (4.5-5.3) mg/dL ABG Glucose (75-99) mg/dL ABG Lactic Acid (0.5-1.6) mmol/L Hemoglobin (13.0-17.5) gm/dL Sodium (137-145) mmol/L Chloride (98-107) mmol/L Carbon Dioxide (22-30) mmol/L Glucose (74-99) mg/dL POC Glucose (mg/dL) 159 H 141 H 146 H (70-110) mg/dL Calcium (8.4-10.2) mg/dL Magnesium (1.6-2.3) mg/dL Total Protein (6.3-8.2) g/dL Albumin (3.5-5.0) g/dL Arterial Blood Potassium (3.4-4.5) mmol/L Arterial Blood Glucose (75-99) mg/dL Crossmatch 02/01/22 02/01/22 02/01/22 Range/Units 00:02 01:07 02:14 WBC (3.8-10.6) k/uL RBC (4.30-5.90) m/uL Hgb (13.0-17.5) gm/dL Hct (39.0-53.0) % Neutrophils # (1.3-7.7) k/uL Lymphocytes # (1.0-4.8) k/uL APTT (22.0-30.0) sec ABG pH (7.35-7.45) ABG pCO2 (35-45) mmHg ABG pO2 (83-108) mmHg ABG Total CO2 (19-24) mmol/L ABG O2 Saturation (94-97) % ABG Hematocrit (34.0-46.0) % ABG Sodium (135-146) mmol/L ABG Potassium (3.4-4.5) mmol/L ABG Ionized Calcium (4.5-5.3) mg/dL ABG Glucose (75-99) mg/dL ABG Lactic Acid (0.5-1.6) mmol/L Hemoglobin (13.0-17.5) gm/dL Sodium (137-145) mmol/L Chloride (98-107) mmol/L Carbon Dioxide (22-30) mmol/L Glucose (74-99) mg/dL POC Glucose (mg/dL) 144 H 149 H 146 H (70-110) mg/dL Calcium (8.4-10.2) mg/dL Magnesium (1.6-2.3) mg/dL Total Protein (6.3-8.2) g/dL Albumin (3.5-5.0) g/dL Arterial Blood Potassium (3.4-4.5) mmol/L Arterial Blood Glucose (75-99) mg/dL Crossmatch 02/01/22 02/01/22 02/01/22 Range/Units 03:00 04:00 04:00 WBC 11.4 H (3.8-10.6) k/uL RBC 4.18 L (4.30-5.90) m/uL Hgb 12.4 L (13.0-17.5) gm/dL Hct 37.4 L (39.0-53.0) % Neutrophils # 9.7 H (1.3-7.7) k/uL Lymphocytes # (1.0-4.8) k/uL APTT (22.0-30.0) sec ABG pH (7.35-7.45) ABG pCO2 (35-45) mmHg ABG pO2 (83-108) mmHg ABG Total CO2 (19-24) mmol/L ABG O2 Saturation (94-97) % ABG Hematocrit (34.0-46.0) % ABG Sodium (135-146) mmol/L ABG Potassium (3.4-4.5) mmol/L ABG Ionized Calcium (4.5-5.3) mg/dL ABG Glucose (75-99) mg/dL ABG Lactic Acid (0.5-1.6) mmol/L Hemoglobin (13.0-17.5) gm/dL Sodium 135 L (137-145) mmol/L Chloride (98-107) mmol/L Carbon Dioxide 21 L (22-30) mmol/L Glucose 135 H (74-99) mg/dL POC Glucose (mg/dL) 143 H (70-110) mg/dL Calcium 7.8 L (8.4-10.2) mg/dL Magnesium 2.8 H (1.6-2.3) mg/dL Total Protein 5.3 L (6.3-8.2) g/dL Albumin 3.4 L (3.5-5.0) g/dL Arterial Blood Potassium (3.4-4.5) mmol/L Arterial Blood Glucose (75-99) mg/dL Crossmatch 02/01/22 02/01/22 02/01/22 Range/Units 04:04 06:14 07:11 WBC (3.8-10.6) k/uL RBC (4.30-5.90) m/uL Hgb (13.0-17.5) gm/dL Hct (39.0-53.0) % Neutrophils # (1.3-7.7) k/uL Lymphocytes # (1.0-4.8) k/uL APTT (22.0-30.0) sec ABG pH (7.35-7.45) ABG pCO2 (35-45) mmHg ABG pO2 (83-108) mmHg ABG Total CO2 (19-24) mmol/L ABG O2 Saturation (94-97) % ABG Hematocrit (34.0-46.0) % ABG Sodium (135-146) mmol/L ABG Potassium (3.4-4.5) mmol/L ABG Ionized Calcium (4.5-5.3) mg/dL ABG Glucose (75-99) mg/dL ABG Lactic Acid (0.5-1.6) mmol/L Hemoglobin (13.0-17.5) gm/dL Sodium (137-145) mmol/L Chloride (98-107) mmol/L Carbon Dioxide (22-30) mmol/L Glucose (74-99) mg/dL POC Glucose (mg/dL) 137 H 149 H 148 H (70-110) mg/dL Calcium (8.4-10.2) mg/dL Magnesium (1.6-2.3) mg/dL Total Protein (6.3-8.2) g/dL Albumin (3.5-5.0) g/dL Arterial Blood Potassium (3.4-4.5) mmol/L Arterial Blood Glucose (75-99) mg/dL Crossmatch - Imaging and Cardiology Chest x-ray: report reviewed, image reviewed Assessment and Plan Assessment: 1. Bicuspid calcific aortic stenosis/insufficiency, status post aortic valve replacement with 25 mm On-X mechanical valve 2. Coronary artery disease status post stent placement to his right coronary artery in 2018 3. History of Hypertension 4. History of Hyperlipidemia, on atorvastatin 80 mg by mouth daily at bedtime on an outpatient basis 5. History of pulmonary embolus, was on Eliquis for anticoagulation on an outpatient basis 6. Chronic obstructive pulmonary disease, with a preoperative FEV1 57% of p redicted value with a base of 2.01 L 7. Severe symptomatic obstructive sleep apnea, currently does not use CPAP therapy at home 8. Chronic ongoing tobacco dependence, smokes an occasional cigar 9. History of COVID-19 in June 2021 10. Morbid obesity with a BMI of 41.1 kg/m 11. Borderline diabetes mellitus type 2 with a preoperative hemoglobin A1c of 6.4%, diet-controlled 12. Family history of coronary artery disease with his father having a myocardial infarction at age 48 Plan: 1. Continue to maximize medical therapy with aspirin, statin, Plavix, and beta milton. Will increase metoprolol tartrate 25 mg by mouth twice a day 2. Discontinue amiodarone drip and start on amiodarone 400 mg by mouth twice a day per protocol. 3. Wean oxygen as tolerated. Encourage incentive spirometry 10 times every hour while awake. Bronchodilators per pulmonology/critical care medicine. Continue Symbicort 804 0.5 g 2 puffs twice a day. 4. Increase activity, ambulate as tolerated. PT/OT/cardiac rehab consulted. 5. Will monitor daily labs and chest x-rays. Electrolyte replacement per protocol. 6. GI and DVT prophylaxis. 7. Pain control with current medication regimen. Discontinue Toradol as his creatinine today is 1.23. 8. Insulin management per primary care service. Borderline diabetic with a preoperative hemoglobin A1c 6.4%. 9. Discontinue [place] Dayna catheter. Connect right IJ Cordis to continuous CVP monitoring. 10. Continue chest tubes for another 24 hours. 11. Continue Garcia catheter for another 24 hours for strict accurate intake and output. Daily weights 12. Continue right radial arterial line for another 24 hours. 13. May ground atrial and ventricular epicardial pacemaker wires. 14. Lasix 20 mg IV 1 now. 15. More recommendations to follow based on patient's clinical course. Time with Patient: Greater than 30
[2022-02-01] MEDS: AMIODARONE 450 MG in DEXTROSE 5% IN WATER 250 ML IV SCH ×2 (10:39)
[2022-02-01 11:48] LABS: Glucose,Whole Blood 152 mg/dL (70-110)
[2022-02-01] MEDS ORDERED: DEXTROSE 50% SYRINGE 50 ML IVP PRN ×2 (11:48)
[2022-02-01] MEDS: LACTATED RINGERS 1,000 ML IV SCH (12:15)
[2022-02-01] MEDS: INSULIN ASPART (NovoLOG) 100 UNIT/ML VIAL SQ SCH ×3 (12:19→20:24)
[2022-02-01 12:33] VITALS: BMI 41.1
--- NOTE | 2022-02-01 13:23 | P.PN ---
Subjective Progress Note Date: 02/01/22 Principal diagnosis: POD #1 aortic valve replacement with a 25 mm On-X mechanical valve, ligation of the left atrial appendage with a 35 mm Atricure clip, it aortic ultrasonography, patch closure of aortotomy with bovine pericardium area Patient was reevaluated today on 02/01/22, patient was successfully extubated at 6:15 p.m. last evening. Initially extubated to BiPAP, and he is now on high flow nasal cannula at 15 L/m. Doing fairly well with incentive spirometry achieving about 1000 mL. Patient continues to have some pain from his chest tube, and he continues to have right IJ Bristow-Charisma catheter and Cordis in place. He is hemodynamically stable, cardiac output is 5.5 and cardiac index is 2.5 his PA pressure 28/13 and CVP is 14. Remains on amiodarone drip at 0.5 mg/m as per protocol. Chest x-ray showed mostly postoperative changes, and scattered pleural parenchymal opacities reflecting mostly atelectasis. Expected. W scan is 13.7 hemoglobin 8.2, basic metabolic profile is normal creatinine is up to 1.23 today, was 1.06 yesterday. Blood sugars were 35 rest of the metabolic panel is normal Objective - Vital Signs Vital signs: Vital Signs Temp 98.3 F 02/01/22 12:00 Pulse 80 02/01/22 12:00 Resp 20 02/01/22 12:00 BP 130/69 01/31/22 06:06 Pulse Ox 93 L 02/01/22 12:00 FiO2 70 02/01/22 06:24 Intake & Output 01/31/22 02/01/22 02/01/22 18:59 06:59 18:59 Intake Total 527.999 6876.517 480 Output Total 2470 782 885 Balance -1958.280 909.517 -405 Weight 119.1 kg 119.1 kg Intake: IV 217 917 230 0.9 ns pressure bag 45 117 30 Lactated Ringers 1,000 ml 600 200 @ 20 mls/hr IV .Q24H [facility] Rx#:[id number] cardiac outpt 120 200 Intake, IV Titration 294.720 74.517 Amount Dexmedetomidine/0.9% NaCl 23.934 (Pmx) 400 mcg In Empty Bag 1 bag @ Titrate IV . Q0M [facility] Rx#:[id number] Insulin Regular 100 unit 3.942 24.517 In Sodium Chloride 0.9% 100 ml @ Per Protocol IV .Q0M [facility] Rx#:[id number] Lactated Ringers 1,000 ml 250 50 @ 20 mls/hr IV .Q24H [facility] Rx#:[id number] propofoL 1,000 mg In 16.844 Empty Bag 1 bag @ Titrate IV .Q0M [facility] Rx#: [id number] Oral 700 250 Output: Chest Tube Drainage 100 322 120 Chest Tube Left Pleural/ 100 322 120 Mediastinal Urine 870 460 515 Emesis 250 Estimated Blood Loss 1500 Other: Voiding Method Indwelling Catheter Indwelling Catheter Indwelling Catheter ABP, PAP, CO, CI - Last Documented Arterial Blood Pressure 117/59 Pulmonary Artery Pressure 27/10 Cardiac Output 5.5 Cardiac Index 2.5 - Exam Physical exam revealed a 51-year-old white male obese in no distress. HEENT: PERRLA, EOMI, anicteric, right IJ cordis noted in place. RESPIRATORY: Symmetrical chest expansion diminished breath sounds at the bases CARDIOVASCULAR: Normal S1 and S2, no S3 gallop, no murmur. Abdomen: Obese soft, nontender, nondistended. Diminished bowel sounds. INTEGUMENTARY: Skin is warm no rashes. Midline incision is clean. NEUROLOGIC: Alert oriented 3 no focal deficit. MUSKULOSKELETAL: No deformities and no limitation in range of motion PSYCHIATRIC: Normal mood affect and normal mental status examination. - Labs CBC & Chem 7: 02/01/22 04:00 02/01/22 04:00 Labs: Abnormal Lab Results - Last 24 Hours (Table) 01/29/22 01/31/22 01/31/22 Range/Units 07:25 13:38 13:40 WBC 17.0 H (3.8-10.6) k/uL RBC (4.30-5.90) m/uL Hgb (13.0-17.5) gm/dL Hct (39.0-53.0) % Neutrophils # 14.2 H (1.3-7.7) k/uL Lymphocytes # (1.0-4.8) k/uL APTT (22.0-30.0) sec ABG pH (7.35-7.45) ABG pCO2 (35-45) mmHg ABG pO2 (83-108) mmHg ABG Total CO2 (19-24) mmol/L ABG O2 Saturation (94-97) % Sodium (137-145) mmol/L Chloride (98-107) mmol/L Carbon Dioxide (22-30) mmol/L Glucose (74-99) mg/dL POC Glucose (mg/dL) 137 H (70-110) mg/dL Calcium (8.4-10.2) mg/dL Magnesium (1.6-2.3) mg/dL Total Protein (6.3-8.2) g/dL Albumin (3.5-5.0) g/dL Crossmatch See Detail 01/31/22 01/31/22 01/31/22 Range/Units 13:40 13:40 13:50 WBC (3.8-10.6) k/uL RBC (4.30-5.90) m/uL Hgb (13.0-17.5) gm/dL Hct (39.0-53.0) % Neutrophils # (1.3-7.7) k/uL Lymphocytes # (1.0-4.8) k/uL APTT 34.1 H (22.0-30.0) sec ABG pH 7.22 L (7.35-7.45) ABG pCO2 61 H (35-45) mmHg ABG pO2 116 H (83-108) mmHg ABG Total CO2 27 H (19-24) mmol/L ABG O2 Saturation 98.4 H (94-97) % Sodium (137-145) mmol/L Chloride 108 H (98-107) mmol/L Carbon Dioxide 21 L (22-30) mmol/L Glucose 126 H (74-99) mg/dL POC Glucose (mg/dL) (70-110) mg/dL Calcium 8.0 L (8.4-10.2) mg/dL Magnesium 3.7 H (1.6-2.3) mg/dL Total Protein 4.9 L (6.3-8.2) g/dL Albumin 3.0 L (3.5-5.0) g/dL Crossmatch 01/31/22 01/31/22 01/31/22 Range/Units 14:01 15:01 16:04 WBC (3.8-10.6) k/uL RBC (4.30-5.90) m/uL Hgb (13.0-17.5) gm/dL Hct (39.0-53.0) % Neutrophils # (1.3-7.7) k/uL Lymphocytes # (1.0-4.8) k/uL APTT (22.0-30.0) sec ABG pH (7.35-7.45) ABG pCO2 (35-45) mmHg ABG pO2 (83-108) mmHg ABG Total CO2 (19-24) mmol/L ABG O2 Saturation (94-97) % Sodium (137-145) mmol/L Chloride (98-107) mmol/L Carbon Dioxide (22-30) mmol/L Glucose (74-99) mg/dL POC Glucose (mg/dL) 135 H 130 H 133 H (70-110) mg/dL Calcium (8.4-10.2) mg/dL Magnesium (1.6-2.3) mg/dL Total Protein (6.3-8.2) g/dL Albumin (3.5-5.0) g/dL Crossmatch 01/31/22 01/31/22 01/31/22 Range/Units 16:53 16:55 16:57 WBC 13.8 H (3.8-10.6) k/uL RBC (4.30-5.90) m/uL Hgb (13.0-17.5) gm/dL Hct (39.0-53.0) % Neutrophils # 11.4 H (1.3-7.7) k/uL Lymphocytes # (1.0-4.8) k/uL APTT (22.0-30.0) sec ABG pH 7.27 L (7.35-7.45) ABG pCO2 52 H (35-45) mmHg ABG pO2 79 L (83-108) mmHg ABG Total CO2 25 H (19-24) mmol/L ABG O2 Saturation (94-97) % Sodium (137-145) mmol/L Chloride (98-107) mmol/L Carbon Dioxide (22-30) mmol/L Glucose (74-99) mg/dL POC Glucose (mg/dL) 142 H (70-110) mg/dL Calcium (8.4-10.2) mg/dL Magnesium (1.6-2.3) mg/dL Total Protein (6.3-8.2) g/dL Albumin (3.5-5.0) g/dL Crossmatch 01/31/22 01/31/22 01/31/22 Range/Units 18:03 18:06 18:59 WBC (3.8-10.6) k/uL RBC (4.30-5.90) m/uL Hgb (13.0-17.5) gm/dL Hct (39.0-53.0) % Neutrophils # (1.3-7.7) k/uL Lymphocytes # (1.0-4.8) k/uL APTT (22.0-30.0) sec ABG pH 7.30 L (7.35-7.45) ABG pCO2 46 H (35-45) mmHg ABG pO2 80 L (83-108) mmHg ABG Total CO2 (19-24) mmol/L ABG O2 Saturation (94-97) % Sodium (137-145) mmol/L Chloride (98-107) mmol/L Carbon Dioxide (22-30) mmol/L Glucose (74-99) mg/dL POC Glucose (mg/dL) 155 H 155 H (70-110) mg/dL Calcium (8.4-10.2) mg/dL Magnesium (1.6-2.3) mg/dL Total Protein (6.3-8.2) g/dL Albumin (3.5-5.0) g/dL Crossmatch 01/31/22 01/31/22 01/31/22 Range/Units 20:00 20:03 21:20 WBC 12.6 H (3.8-10.6) k/uL RBC (4.30-5.90) m/uL Hgb 12.7 L (13.0-17.5) gm/dL Hct 38.1 L (39.0-53.0) % Neutrophils # 11.1 H (1.3-7.7) k/uL Lymphocytes # 0.9 L (1.0-4.8) k/uL APTT (22.0-30.0) sec ABG pH 7.34 L (7.35-7.45) ABG pCO2 (35-45) mmHg ABG pO2 (83-108) mmHg ABG Total CO2 (19-24) mmol/L ABG O2 Saturation 97.1 H (94-97) % Sodium (137-145) mmol/L Chloride (98-107) mmol/L Carbon Dioxide (22-30) mmol/L Glucose (74-99) mg/dL POC Glucose (mg/dL) 158 H (70-110) mg/dL Calcium (8.4-10.2) mg/dL Magnesium (1.6-2.3) mg/dL Total Protein (6.3-8.2) g/dL Albumin (3.5-5.0) g/dL Crossmatch 01/31/22 01/31/22 01/31/22 Range/Units 21:23 22:17 23:26 WBC (3.8-10.6) k/uL RBC (4.30-5.90) m/uL Hgb (13.0-17.5) gm/dL Hct (39.0-53.0) % Neutrophils # (1.3-7.7) k/uL Lymphocytes # (1.0-4.8) k/uL APTT (22.0-30.0) sec ABG pH (7.35-7.45) ABG pCO2 (35-45) mmHg ABG pO2 (83-108) mmHg ABG Total CO2 (19-24) mmol/L ABG O2 Saturation (94-97) % Sodium (137-145) mmol/L Chloride (98-107) mmol/L Carbon Dioxide (22-30) mmol/L Glucose (74-99) mg/dL POC Glucose (mg/dL) 159 H 141 H 146 H (70-110) mg/dL Calcium (8.4-10.2) mg/dL Magnesium (1.6-2.3) mg/dL Total Protein (6.3-8.2) g/dL Albumin (3.5-5.0) g/dL Crossmatch 02/01/22 02/01/22 02/01/22 Range/Units 00:02 01:07 02:14 WBC (3.8-10.6) k/uL RBC (4.30-5.90) m/uL Hgb (13.0-17.5) gm/dL Hct (39.0-53.0) % Neutrophils # (1.3-7.7) k/uL Lymphocytes # (1.0-4.8) k/uL APTT (22.0-30.0) sec ABG pH (7.35-7.45) ABG pCO2 (35-45) mmHg ABG pO2 (83-108) mmHg ABG Total CO2 (19-24) mmol/L ABG O2 Saturation (94-97) % Sodium (137-145) mmol/L Chloride (98-107) mmol/L Carbon Dioxide (22-30) mmol/L Glucose (74-99) mg/dL POC Glucose (mg/dL) 144 H 149 H 146 H (70-110) mg/dL Calcium (8.4-10.2) mg/dL Magnesium (1.6-2.3) mg/dL Total Protein (6.3-8.2) g/dL Albumin (3.5-5.0) g/dL Crossmatch 02/01/22 02/01/22 02/01/22 Range/Units 03:00 04:00 04:00 WBC 11.4 H (3.8-10.6) k/uL RBC 4.18 L (4.30-5.90) m/uL Hgb 12.4 L (13.0-17.5) gm/dL Hct 37.4 L (39.0-53.0) % Neutrophils # 9.7 H (1.3-7.7) k/uL Lymphocytes # (1.0-4.8) k/uL APTT (22.0-30.0) sec ABG pH (7.35-7.45) ABG pCO2 (35-45) mmHg ABG pO2 (83-108) mmHg ABG Total CO2 (19-24) mmol/L ABG O2 Saturation (94-97) % Sodium 135 L (137-145) mmol/L Chloride (98-107) mmol/L Carbon Dioxide 21 L (22-30) mmol/L Glucose 135 H (74-99) mg/dL POC Glucose (mg/dL) 143 H (70-110) mg/dL Calcium 7.8 L (8.4-10.2) mg/dL Magnesium 2.8 H (1.6-2.3) mg/dL Total Protein 5.3 L (6.3-8.2) g/dL Albumin 3.4 L (3.5-5.0) g/dL Crossmatch 02/01/22 02/01/22 02/01/22 Range/Units 04:04 06:14 07:11 WBC (3.8-10.6) k/uL RBC (4.30-5.90) m/uL Hgb (13.0-17.5) gm/dL Hct (39.0-53.0) % Neutrophils # (1.3-7.7) k/uL Lymphocytes # (1.0-4.8) k/uL APTT (22.0-30.0) sec ABG pH (7.35-7.45) ABG pCO2 (35-45) mmHg ABG pO2 (83-108) mmHg ABG Total CO2 (19-24) mmol/L ABG O2 Saturation (94-97) % Sodium (137-145) mmol/L Chloride (98-107) mmol/L Carbon Dioxide (22-30) mmol/L Glucose (74-99) mg/dL POC Glucose (mg/dL) 137 H 149 H 148 H (70-110) mg/dL Calcium (8.4-10.2) mg/dL Magnesium (1.6-2.3) mg/dL Total Protein (6.3-8.2) g/dL Albumin (3.5-5.0) g/dL Crossmatch 02/01/22 02/01/22 Range/Units 08:31 11:46 WBC (3.8-10.6) k/uL RBC (4.30-5.90) m/uL Hgb (13.0-17.5) gm/dL Hct (39.0-53.0) % Neutrophils # (1.3-7.7) k/uL Lymphocytes # (1.0-4.8) k/uL APTT (22.0-30.0) sec ABG pH (7.35-7.45) ABG pCO2 (35-45) mmHg ABG pO2 (83-108) mmHg ABG Total CO2 (19-24) mmol/L ABG O2 Saturation (94-97) % Sodium (137-145) mmol/L Chloride (98-107) mmol/L Carbon Dioxide (22-30) mmol/L Glucose (74-99) mg/dL POC Glucose (mg/dL) 148 H 152 H (70-110) mg/dL Calcium (8.4-10.2) mg/dL Magnesium (1.6-2.3) mg/dL Total Protein (6.3-8.2) g/dL Albumin (3.5-5.0) g/dL Crossmatch Assessment and Plan Assessment: Impression: POD #1 aortic valve replacement with a 25 mm On-X mechanical valve Bicuspid calcific aortic stenosis/insufficiency Benign essential hypertension History of pulmonary embolism Chronic obstructive pulmonary disease FEV1 of 57% Severe obstructive sleep apnea syndrome with AHI of 60 Morbid obesity. History of COVID-19 infection back in June of 2021. Type 2 diabetes. Family history of coronary artery disease. Recommendation: Continue maximal medical therapy including Plavix beta milotn statin and aspirin Transition to oral amiodarone. Continue incentive spirometry Continue oxygen and titrate accordingly Continue GI and DVT prophylaxis. Continue pain management Discontinue unnecessary lines and catheters as soon as possible. Early ambulation. We'll continue to follow Time with Patient: Less than 30
--- NOTE | 2022-02-01 14:02 | P.CONS ---
History of Present Illness - Reason for Consult Consult date: 02/01/22 Medical management Requesting physician: Stan Carroll - Chief Complaint Bicuspid calcified aortic stenosis/insufficiency status post AVR - History of Present Illness This is a 51-year-old gentleman with past medical history of CAD, PA, stenting of RCA ,PE on Eliquis, COPD, obstructive sleep apnea ,diabetes mellitus, gastroesophageal reflux disease, hypertension, hyperlipidemia, nicotine dependence, morbid obesity, Covid June 2021-continued to have progressive exertional shortness of breath, YASH reported normal LV function, moderate aortic stenosis with [id number] aortic regurgitation involving heavily calcified bicuspid aortic valve. Patient is status post Bicuspid calcified aortic stenosis/insufficiency status post AVR, ligation of left atrial appendage, postop day #1, tolerated procedure well. Extubated last night and currently maintaining O2 sats in the 90s on 15 L high flow nasal cannula. Incentive spirometer 7-800. Complains of chest tube discomfort. Chest x-ray reporting postop changes, scattered pleural progression multiple PACs, most likely atelectasis. Afebrile, WBC 11.4, hemoglobin 12.4, platelets 164 creatinine increased to 1.23, blood sugars controlled on insulin drip. CO/CI 5.5/2.5. Transitioned to oral amiodarone. Telemetry sinus rhythm. Review of Systems ROS Statement: Those systems with pertinent positive or pertinent negative responses have been documented in the HPI. ROS Other: All systems not noted in ROS Statement are negative. Past Medical History Past Medical History: Coronary Artery Disease (CAD), COPD, Diabetes Mellitus, GERD/Reflux, Hyperlipidemia, Hypertension, Myocardial Infarction (PA), Osteoarthritis (OA), Pulmonary Embolus (PE) Additional Past Medical History / Comment(s): Bronchitis, gastric ulcer as a teen, hx. L leg cellulitis but not currently, chronic low back pain, vertigo, ?hx. of PE but discrepancy between & rad if had, just had sleep study for possible sleep apnea, possible diabetes, states recent elevated HgbA1C Last Myocardial Infarction Date:: September 2021 History of Any Multi-Drug Resistant Organisms: None Reported Past Surgical History: Heart Catheterization With Stent Additional Past Surgical History / Comment(s): Egd, colonoscopy, YASH Past Anesthesia/Blood Transfusion Reactions: No Reported Reaction Date of Last Stent Placement:: February of 2019 Smoking Status: Current every day smoker - Past Family History Father Family Medical History: Coronary Artery Disease (CAD), Myocardial Infarction (PA) Additional Family Medical History / Comment(s): Father of PA at the age of 71 yrs. Sister(s) Family Medical History: No Reported History Additional Family Medical History / Comment(s): Sister has a heart murmur. Mother Family Medical History: Cancer Medications and Allergies Home Medications Medication Instructions Recorded Confirmed Type Aspirin 81 mg PO DAILY #30 chew 01/21/19 01/29/22 Rx Atorvastatin [Lipitor] 80 mg PO HS #30 tab 01/21/19 01/29/22 Rx Clopidogrel [Plavix] 75 mg PO DAILY #30 tab 01/21/19 01/29/22 Rx Nitroglycerin Sl Tabs [Nitrostat] 0.4 mg SUBLINGUAL Q5M PRN #25 tab 01/21/19 01/29/22 Rx Metoprolol Succinate [Toprol XL] 50 mg PO DAILY 03/26/21 01/29/22 History Albuterol Inhaler [Ventolin Hfa 2 puff INHALATION RT-QID PRN 10/01/21 01/29/22 History Inhaler] Ergocalciferol [Vitamin D2 (1250 1,250 mcg PO MO 10/01/21 01/29/22 History Mcg = 65502 Iu)] Losartan [Cozaar] 25 mg PO DAILY 10/01/21 01/29/22 History Fenofibrate [Lofibra] 160 mg PO DAILY 30 Days #30 tab 10/03/21 01/29/22 Rx lisinopriL [Zestril] 5 mg PO DAILY 01/29/22 01/29/22 History Fluticasone/Umeclidin/Vilanter 1 inhalation INHALATION DAILY 01/30/22 01/30/22 History [Trelegy Ellipta 100-62.5-25] Mupirocin [Mupirocin 2%] 1 applic NASAL BID #1 tub 01/30/22 Rx Allergies Allergy/AdvReac Type Severity Reaction Status Date / Time No Known Allergies Allergy Verified 01/29/22 09:21 Physical Exam Vitals: Vital Signs Temp Pulse Resp Pulse Ox FiO2 02/01/22 12:00 98.3 F 80 20 93 L 02/01/22 11:50 80 02/01/22 11:18 82 32 H 89 L 02/01/22 10:00 78 34 H 90 L 02/01/22 09:00 77 21 90 L 02/01/22 08:49 77 02/01/22 08:40 75 02/01/22 08:00 98.6 F 70 22 92 L 02/01/22 07:30 76 23 92 L 02/01/22 07:00 78 26 H 92 L 02/01/22 06:30 78 24 94 L 02/01/22 06:24 70 02/01/22 06:00 75 24 93 L 02/01/22 05:30 82 36 H 96 02/01/22 05:00 76 27 H 93 L 02/01/22 04:30 74 16 92 L 02/01/22 04:29 50 02/01/22 04:00 74 18 93 L 02/01/22 03:30 72 18 92 L 02/01/22 03:00 70 16 93 L 02/01/22 02:30 74 19 93 L 02/01/22 02:00 75 14 92 L 02/01/22 01:30 74 17 94 L 02/01/22 01:00 75 16 93 L 02/01/22 00:30 75 16 93 L 02/01/22 00:00 74 17 93 L 01/31/22 23:51 50 01/31/22 23:30 74 19 94 L 01/31/22 23:00 75 25 H 93 L 01/31/22 22:30 78 18 93 L 01/31/22 22:00 75 18 94 L 01/31/22 21:30 76 23 92 L 01/31/22 21:00 80 15 97 01/31/22 20:45 78 50 01/31/22 20:30 79 18 94 L 01/31/22 20:00 80 20 94 L 01/31/22 19:30 85 26 H 94 L 01/31/22 19:00 82 21 95 50 01/31/22 18:30 87 22 95 50 01/31/22 18:21 50 01/31/22 18:14 50 01/31/22 18:00 83 23 92 L 50 01/31/22 17:30 86 23 94 L 50 01/31/22 17:10 50 01/31/22 17:00 87 22 93 L 50 01/31/22 16:38 87 20 08/18/22 16:30 87 22 93 L 60 01/31/22 16:28 89 21 01/31/22 16:15 60 01/31/22 16:00 98.6 F 98 21 92 L 60 01/31/22 15:30 92 17 94 L 60 01/31/22 15:06 70 01/31/22 15:00 87 15 94 L 80 01/31/22 14:30 89 16 94 L 80 01/31/22 14:10 82 16 93 L 80 01/31/22 14:06 80 01/31/22 14:00 86 16 96 100 01/31/22 13:50 85 12 97 100 01/31/22 13:40 97.3 F L 77 12 97 100 01/31/22 13:35 100 Intake and Output 01/31/22 02/01/22 02/01/22 22:59 06:59 14:59 Intake Total 1307.012 765.225 480 Output Total 553 563 885 Balance 754.012 202.225 -405 Intake: IV 402 651 230 0.9 ns pressure bag 72 81 30 Lactated Ringers 1,000 ml 150 450 200 @ 20 mls/hr IV .Q24H [facility] Rx#:[id number] cardiac outpt 180 120 Intake, IV Titration 305.012 14.225 Amount Dexmedetomidine/0.9% NaCl 23.934 (Pmx) 400 mcg In Empty Bag 1 bag @ Titrate IV . Q0M [facility] Rx#:[id number] Insulin Regular 100 unit 14.234 14.225 In Sodium Chloride 0.9% 100 ml @ Per Protocol IV .Q0M [facility] Rx#:[id number] Lactated Ringers 1,000 ml 250 @ 20 mls/hr IV .Q24H [facility] Rx#:[id number] propofoL 1,000 mg In 16.844 Empty Bag 1 bag @ Titrate IV .Q0M [facility] Rx#: [id number] Oral 600 100 250 Output: Chest Tube Drainage 109 272 120 Chest Tube Left Pleural/ 109 272 120 Mediastinal Urine 444 291 515 Emesis 250 Other: Voiding Method Indwelling Catheter Indwelling Catheter Indwelling Catheter Weight 119.1 kg 119.1 kg ABP, PAP, CO, CI - Last 8 Hours Arterial Blood Pressure 117/59 Arterial Blood Pressure 118/68 Arterial Blood Pressure 105/61 Arterial Blood Pressure 144/63 Arterial Blood Pressure 125/58 Arterial Blood Pressure 107/60 Arterial Blood Pressure 127/66 Arterial Blood Pressure 114/72 Arterial Blood Pressure 110/61 Arterial Blood Pressure 137/56 Arterial Blood Pressure 122/63 Pulmonary Artery Pressure 27/10 Pulmonary Artery Pressure 29/11 Pulmonary Artery Pressure 29/13 Pulmonary Artery Pressure 30/18 Pulmonary Artery Pressure 30/16 Pulmonary Artery Pressure 45/15 Pulmonary Artery Pressure 35/21 Cardiac Output 5.5 Cardiac Index 2.5 PHYSICAL EXAM: VITAL SIGNS: [As above] GENERAL: Sitting up in chair, no acute distress HEENT: Conjunctivae normal. eyes normal. MMM. Right IJ Cordis/Buxton zack present NECK: Supple, No JVD. No thyroid enlargement. No LNs CARDIOVASCULAR: S1, S2 regular. mechanical click, wearing heart hugger. RESPIRATION: Clear to auscultation, Breath sounds diminished in the bases. No rhonchi or crackles. No bronchial breathing. Left pleural mediastinal chest tubes present. ABDOMEN: Soft, nontender . No guarding. no masses palpable. No ascites, No hepatosplenomegaly.Hypoactive Bowel sounds. LEGS: No edema. no swelling PSYCHIATRY: Alert and oriented X3, mood and affect normal. NERVOUS SYSTEM: Cranial N 2-12 grossly normal. Moves all 4 limbs. Diffuse weakness No focal deficits. Strength and sensation grossly intact.. Skin: Warm and dry, no rash Results CBC & Chem 7: 02/01/22 04:00 02/01/22 04:00 Labs: Abnormal Lab Results - Last 24 Hours (Table) 01/29/22 01/31/22 01/31/22 Range/Units 07:25 13:38 13:40 WBC 17.0 H (3.8-10.6) k/uL RBC (4.30-5.90) m/uL Hgb (13.0-17.5) gm/dL Hct (39.0-53.0) % Neutrophils # 14.2 H (1.3-7.7) k/uL Lymphocytes # (1.0-4.8) k/uL APTT (22.0-30.0) sec ABG pH (7.35-7.45) ABG pCO2 (35-45) mmHg ABG pO2 (83-108) mmHg ABG Total CO2 (19-24) mmol/L ABG O2 Saturation (94-97) % Sodium (137-145) mmol/L Chloride (98-107) mmol/L Carbon Dioxide (22-30) mmol/L Glucose (74-99) mg/dL POC Glucose (mg/dL) 137 H (70-110) mg/dL Calcium (8.4-10.2) mg/dL Magnesium (1.6-2.3) mg/dL Total Protein (6.3-8.2) g/dL Albumin (3.5-5.0) g/dL Crossmatch See Detail 01/31/22 01/31/22 01/31/22 Range/Units 13:40 13:40 13:50 WBC (3.8-10.6) k/uL RBC (4.30-5.90) m/uL Hgb (13.0-17.5) gm/dL Hct (39.0-53.0) % Neutrophils # (1.3-7.7) k/uL Lymphocytes # (1.0-4.8) k/uL APTT 34.1 H (22.0-30.0) sec ABG pH 7.22 L (7.35-7.45) ABG pCO2 61 H (35-45) mmHg ABG pO2 116 H (83-108) mmHg ABG Total CO2 27 H (19-24) mmol/L ABG O2 Saturation 98.4 H (94-97) % Sodium (137-145) mmol/L Chloride 108 H (98-107) mmol/L Carbon Dioxide 21 L (22-30) mmol/L Glucose 126 H (74-99) mg/dL POC Glucose (mg/dL) (70-110) mg/dL Calcium 8.0 L (8.4-10.2) mg/dL Magnesium 3.7 H (1.6-2.3) mg/dL Total Protein 4.9 L (6.3-8.2) g/dL Albumin 3.0 L (3.5-5.0) g/dL Crossmatch 01/31/22 01/31/22 01/31/22 Range/Units 14:01 15:01 16:04 WBC (3.8-10.6) k/uL RBC (4.30-5.90) m/uL Hgb (13.0-17.5) gm/dL Hct (39.0-53.0) % Neutrophils # (1.3-7.7) k/uL Lymphocytes # (1.0-4.8) k/uL APTT (22.0-30.0) sec ABG pH (7.35-7.45) ABG pCO2 (35-45) mmHg ABG pO2 (83-108) mmHg ABG Total CO2 (19-24) mmol/L ABG O2 Saturation (94-97) % Sodium (137-145) mmol/L Chloride (98-107) mmol/L Carbon Dioxide (22-30) mmol/L Glucose (74-99) mg/dL POC Glucose (mg/dL) 135 H 130 H 133 H (70-110) mg/dL Calcium (8.4-10.2) mg/dL Magnesium (1.6-2.3) mg/dL Total Protein (6.3-8.2) g/dL Albumin (3.5-5.0) g/dL Crossmatch 01/31/22 01/31/22 01/31/22 Range/Units 16:53 16:55 16:57 WBC 13.8 H (3.8-10.6) k/uL RBC (4.30-5.90) m/uL Hgb (13.0-17.5) gm/dL Hct (39.0-53.0) % Neutrophils # 11.4 H (1.3-7.7) k/uL Lymphocytes # (1.0-4.8) k/uL APTT (22.0-30.0) sec ABG pH 7.27 L (7.35-7.45) ABG pCO2 52 H (35-45) mmHg ABG pO2 79 L (83-108) mmHg ABG Total CO2 25 H (19-24) mmol/L ABG O2 Saturation (94-97) % Sodium (137-145) mmol/L Chloride (98-107) mmol/L Carbon Dioxide (22-30) mmol/L Glucose (74-99) mg/dL POC Glucose (mg/dL) 142 H (70-110) mg/dL Calcium (8.4-10.2) mg/dL Magnesium (1.6-2.3) mg/dL Total Protein (6.3-8.2) g/dL Albumin (3.5-5.0) g/dL Crossmatch 01/31/22 01/31/22 01/31/22 Range/Units 18:03 18:06 18:59 WBC (3.8-10.6) k/uL RBC (4.30-5.90) m/uL Hgb (13.0-17.5) gm/dL Hct (39.0-53.0) % Neutrophils # (1.3-7.7) k/uL Lymphocytes # (1.0-4.8) k/uL APTT (22.0-30.0) sec ABG pH 7.30 L (7.35-7.45) ABG pCO2 46 H (35-45) mmHg ABG pO2 80 L (83-108) mmHg ABG Total CO2 (19-24) mmol/L ABG O2 Saturation (94-97) % Sodium (137-145) mmol/L Chloride (98-107) mmol/L Carbon Dioxide (22-30) mmol/L Glucose (74-99) mg/dL POC Glucose (mg/dL) 155 H 155 H (70-110) mg/dL Calcium (8.4-10.2) mg/dL Magnesium (1.6-2.3) mg/dL Total Protein (6.3-8.2) g/dL Albumin (3.5-5.0) g/dL Crossmatch 01/31/22 01/31/22 01/31/22 Range/Units 20:00 20:03 21:20 WBC 12.6 H (3.8-10.6) k/uL RBC (4.30-5.90) m/uL Hgb 12.7 L (13.0-17.5) gm/dL Hct 38.1 L (39.0-53.0) % Neutrophils # 11.1 H (1.3-7.7) k/uL Lymphocytes # 0.9 L (1.0-4.8) k/uL APTT (22.0-30.0) sec ABG pH 7.34 L (7.35-7.45) ABG pCO2 (35-45) mmHg ABG pO2 (83-108) mmHg ABG Total CO2 (19-24) mmol/L ABG O2 Saturation 97.1 H (94-97) % Sodium (137-145) mmol/L Chloride (98-107) mmol/L Carbon Dioxide (22-30) mmol/L Glucose (74-99) mg/dL POC Glucose (mg/dL) 158 H (70-110) mg/dL Calcium (8.4-10.2) mg/dL Magnesium (1.6-2.3) mg/dL Total Protein (6.3-8.2) g/dL Albumin (3.5-5.0) g/dL Crossmatch 01/31/22 01/31/22 01/31/22 Range/Units 21:23 22:17 23:26 WBC (3.8-10.6) k/uL RBC (4.30-5.90) m/uL Hgb (13.0-17.5) gm/dL Hct (39.0-53.0) % Neutrophils # (1.3-7.7) k/uL Lymphocytes # (1.0-4.8) k/uL APTT (22.0-30.0) sec ABG pH (7.35-7.45) ABG pCO2 (35-45) mmHg ABG pO2 (83-108) mmHg ABG Total CO2 (19-24) mmol/L ABG O2 Saturation (94-97) % Sodium (137-145) mmol/L Chloride (98-107) mmol/L Carbon Dioxide (22-30) mmol/L Glucose (74-99) mg/dL POC Glucose (mg/dL) 159 H 141 H 146 H (70-110) mg/dL Calcium (8.4-10.2) mg/dL Magnesium (1.6-2.3) mg/dL Total Protein (6.3-8.2) g/dL Albumin (3.5-5.0) g/dL Crossmatch 02/01/22 02/01/22 02/01/22 Range/Units 00:02 01:07 02:14 WBC (3.8-10.6) k/uL RBC (4.30-5.90) m/uL Hgb (13.0-17.5) gm/dL Hct (39.0-53.0) % Neutrophils # (1.3-7.7) k/uL Lymphocytes # (1.0-4.8) k/uL APTT (22.0-30.0) sec ABG pH (7.35-7.45) ABG pCO2 (35-45) mmHg ABG pO2 (83-108) mmHg ABG Total CO2 (19-24) mmol/L ABG O2 Saturation (94-97) % Sodium (137-145) mmol/L Chloride (98-107) mmol/L Carbon Dioxide (22-30) mmol/L Glucose (74-99) mg/dL POC Glucose (mg/dL) 144 H 149 H 146 H (70-110) mg/dL Calcium (8.4-10.2) mg/dL Magnesium (1.6-2.3) mg/dL Total Protein (6.3-8.2) g/dL Albumin (3.5-5.0) g/dL Crossmatch 02/01/22 02/01/22 02/01/22 Range/Units 03:00 04:00 04:00 WBC 11.4 H (3.8-10.6) k/uL RBC 4.18 L (4.30-5.90) m/uL Hgb 12.4 L (13.0-17.5) gm/dL Hct 37.4 L (39.0-53.0) % Neutrophils # 9.7 H (1.3-7.7) k/uL Lymphocytes # (1.0-4.8) k/uL APTT (22.0-30.0) sec ABG pH (7.35-7.45) ABG pCO2 (35-45) mmHg ABG pO2 (83-108) mmHg ABG Total CO2 (19-24) mmol/L ABG O2 Saturation (94-97) % Sodium 135 L (137-145) mmol/L Chloride (98-107) mmol/L Carbon Dioxide 21 L (22-30) mmol/L Glucose 135 H (74-99) mg/dL POC Glucose (mg/dL) 143 H (70-110) mg/dL Calcium 7.8 L (8.4-10.2) mg/dL Magnesium 2.8 H (1.6-2.3) mg/dL Total Protein 5.3 L (6.3-8.2) g/dL Albumin 3.4 L (3.5-5.0) g/dL Crossmatch 02/01/22 02/01/22 02/01/22 Range/Units 04:04 06:14 07:11 WBC (3.8-10.6) k/uL RBC (4.30-5.90) m/uL Hgb (13.0-17.5) gm/dL Hct (39.0-53.0) % Neutrophils # (1.3-7.7) k/uL Lymphocytes # (1.0-4.8) k/uL APTT (22.0-30.0) sec ABG pH (7.35-7.45) ABG pCO2 (35-45) mmHg ABG pO2 (83-108) mmHg ABG Total CO2 (19-24) mmol/L ABG O2 Saturation (94-97) % Sodium (137-145) mmol/L Chloride (98-107) mmol/L Carbon Dioxide (22-30) mmol/L Glucose (74-99) mg/dL POC Glucose (mg/dL) 137 H 149 H 148 H (70-110) mg/dL Calcium (8.4-10.2) mg/dL Magnesium (1.6-2.3) mg/dL Total Protein (6.3-8.2) g/dL Albumin (3.5-5.0) g/dL Crossmatch 02/01/22 02/01/22 Range/Units 08:31 11:46 WBC (3.8-10.6) k/uL RBC (4.30-5.90) m/uL Hgb (13.0-17.5) gm/dL Hct (39.0-53.0) % Neutrophils # (1.3-7.7) k/uL Lymphocytes # (1.0-4.8) k/uL APTT (22.0-30.0) sec ABG pH (7.35-7.45) ABG pCO2 (35-45) mmHg ABG pO2 (83-108) mmHg ABG Total CO2 (19-24) mmol/L ABG O2 Saturation (94-97) % Sodium (137-145) mmol/L Chloride (98-107) mmol/L Carbon Dioxide (22-30) mmol/L Glucose (74-99) mg/dL POC Glucose (mg/dL) 148 H 152 H (70-110) mg/dL Calcium (8.4-10.2) mg/dL Magnesium (1.6-2.3) mg/dL Total Protein (6.3-8.2) g/dL Albumin (3.5-5.0) g/dL Crossmatch Assessment and Plan Assessment: Symptomatic Bicuspid calcified aortic stenosis and insufficiency status post AVR with mechanical valve, ligation of left atrial appendage Acute Hypoxic respiratory failure,post extubation, requiring 15 L high flow nasal cannula Atelactasis, postoperative, expected CAD, history of PA, stents History of COVID June 2021 COPD Obstructive sleep apnea, Diabetes mellitus hemoglobin A1c 6.4 Gastroesophageal reflux disease Hypertension Hyperlipidemia Nicotine dependence Morbid obesity, BMI 41.1 Plan: Continue on current medication regime ,monitoring and symptomatic treatment. Pain management. Aggressive pulmonary toileting with nebulized bronchodilators, incentive spirometer reinforced. Increase ambulation as tolerated. Transition off insulin drip to long acting insulin in addition to sliding scale. The impression and plan of care has been dictated as directed. : I performed a history and examination of this patient, discussed the same with the dictator. I agree with the dictator's note ,documented as a scribe. Any additional findings or plans will be noted.
[2022-02-01] MEDS: HYDROcodone/APAP 7.5-325MG 1 EACH TAB PO PRN ×2 (16:10→20:41)
[2022-02-01 17:43] LABS: Glucose,Whole Blood 127 mg/dL (70-110)
[2022-02-01] MEDS: SENNOSIDES-DOCUSATE SODIUM 1 EACH TAB PO SCH (20:23)
[2022-02-01] MEDS: ATORVASTATIN 80 MG TAB PO SCH (20:24)
[2022-02-01 20:26] LABS: Glucose,Whole Blood 130 mg/dL (70-110)
[2022-02-02] MEDS: HEPARIN SODIUM,PORCINE/PF 5,000 UNIT/0.5 ML SYRINGE SQ SCH ×4 (00:48→23:45)
[2022-02-02] MEDS: HYDROcodone/APAP 7.5-325MG 1 EACH TAB PO PRN ×2 (02:06→20:41)
[2022-02-02] MEDS: ONDANSETRON 4 MG/2 ML VIAL IVP PRN (05:41)
[2022-02-02 06:03] LABS: Basophils % (A) 0 %; Eosinophils # (A) 0.1 k/uL (0-0.7); Eosinophils % (A) 0 %; HCT 39.4 % (39.0-53.0); HGB 12.8 gm/dL (13.0-17.5); Lymphocytes # (A) 1.7 k/uL (1.0-4.8); Lymphocytes % (A) 7 %; MCH 28.5 pg (25.0-35.0); MCHC 32.3 g/dL (31.0-37.0); MCV 88.3 fL (80.0-100.0); Mean Platelet Volume 8.3; Monocytes # (A) 1.2 k/uL (0-1.0); Monocytes % (A) 5 %; Neutrophils % (A) 87 %; Platelet Count 204 k/uL (150-450); RBC 4.47 m/uL (4.30-5.90); RDW 13.5 % (11.5-15.5); WBC 25.1 k/uL (3.8-10.6)
[2022-02-02 06:41] LABS: Glucose,Whole Blood 154 mg/dL (70-110)
[2022-02-02 07:31] LABS: Ionized Calcium 4.7 mg/dL (4.5-5.3)
--- NOTE | 2022-02-02 07:39 | XR ---
EXAMINATION TYPE: XR chest 1V portable DATE OF EXAM: 02/02/2022 5:37 AM COMPARISON: Chest radiographs from 02/01/2022 TECHNIQUE: XR chest 1V portable Frontal view of the chest. CLINICAL INDICATION:Male, 51 years old with history of Post Operative Cardiac Surgery; FINDINGS: Lungs/Pleura: There is no evidence of pleural effusion, focal consolidation, or pneumothorax. Pulmonary vascularity: Unremarkable. Heart/mediastinum: Cardiomediastinal silhouette is enlarged and stable. Musculoskeletal: No acute osseous pathology. Midline sternotomy wires are noted. Other findings: None Lines/Tubes: Interval removal of right IJ central venous catheter Drainage tubes with tips projecting over the mediastinum. Left thoracotomy tube is present without evidence of pneumothorax. IMPRESSION: Postsurgical changes with tubes in place. No evidence of pneumothorax.
[2022-02-02 07:46] LABS: Albumin 3.5 g/dL (3.5-5.0); Calcium 8.3 mg/dL (8.4-10.2); Total Protein 5.6 g/dL (6.3-8.2)
[2022-02-02] MEDS: INSULIN ASPART (NovoLOG) 100 UNIT/ML VIAL SQ SCH ×4 (07:47→20:27)
[2022-02-02] MEDS: INSULIN DETEMIR (LEVEMIR) 100 UNIT/ML SYR SQ SCH (07:48)
[2022-02-02] MEDS: METOCLOPRAMIDE 5 MG/ML 2 ML VIAL IVP PRN (07:59)
[2022-02-02] MEDS: IPRATROPIUM-ALBUTEROL 3 ML NEB INHALATION SCH ×4 (08:04→20:15)
[2022-02-02] MEDS: SYMBICORT 80-4.5 MCG INHALER INHALATION SCH ×2 (08:04→20:16)
[2022-02-02] MEDS: PANTOPRAZOLE 40 MG TABLET PO SCH (08:29)
[2022-02-02] MEDS: AMIODARONE 200 MG TAB PO SCH ×2 (08:29→20:33)
[2022-02-02] MEDS: FENOFIBRATE 160 MG TAB PO SCH (08:29)
[2022-02-02] MEDS: ASPIRIN 325 MG TAB PO SCH (08:29)
[2022-02-02] MEDS: METOPROLOL TARTRATE 25 MG TAB PO SCH ×2 (08:36→20:33)
[2022-02-02] MEDS: MUPIROCIN 2% OINT 22 GM TUBE NASAL SCH ×2 (08:36→20:33)
--- NOTE | 2022-02-02 10:35 | P.PN ---
Subjective Progress Note Date: 02/02/22 Principal diagnosis: POD #2 aortic valve replacement with a 25 mm On-X mechanical valve, ligation of the left atrial appendage with a 35 mm Atricure clip, it aortic ultrasonography, patch closure of aortotomy with bovine pericardium area Patient was reevaluated today on 02/01/22, patient was successfully extubated at 6:15 p.m. last evening. Initially extubated to BiPAP, and he is now on high flow nasal cannula at 15 L/m. Doing fairly well with incentive spirometry achieving about 1000 mL. Patient continues to have some pain from his chest tube, and he continues to have right IJ Lyerly-Charisma catheter and Cordis in place. He is hemodynamically stable, cardiac output is 5.5 and cardiac index is 2.5 his PA pressure 28/13 and CVP is 14. Remains on amiodarone drip at 0.5 mg/m as per protocol. Chest x-ray showed mostly postoperative changes, and scattered pleural parenchymal opacities reflecting mostly atelectasis. Expected. W scan is 13.7 hemoglobin 8.2, basic metabolic profile is normal creatinine is up to 1.23 today, was 1.06 yesterday. Blood sugars were 35 rest of the metabolic panel is normal Reevaluated today on 02/02/22, remains in the ICU, he is presently on BiPAP with IPAP of 14/6/60% O2 saturation is in the mid 90s. He is on IV fluid to KVO. He is postoperative day #2 doing fairly well, he is relatively asymptomatic, improving with his incentive spirometer. Nonetheless his O2 saturation remains marginal on 60% FiO2. Chest x-ray showed postsurgical changes no evidence of active disease noted. Left hemidiaphragm seems to be elevated Objective - Vital Signs Vital signs: Vital Signs Temp 97.9 F 02/02/22 08:00 Pulse 80 02/02/22 10:00 Resp 15 02/02/22 10:00 BP 124/89 02/02/22 10:00 Pulse Ox 89 L 02/02/22 10:00 FiO2 60 02/02/22 09:00 Intake & Output 02/01/22 02/02/22 02/02/22 18:59 06:59 18:59 Intake Total 892 1686 86 Output Total 1335 526 80 Balance -443 1160 6 Weight 119.1 kg 118.9 kg Intake: IV 442 286 86 0.9 ns pressure bag 72 66 6 Lactated Ringers 1,000 ml 370 220 80 @ 20 mls/hr IV .Q24H [facility] Rx#:[id number] Oral 450 1400 Output: Chest Tube Drainage 345 301 Chest Tube Left Pleural/ 200 Mediastinal Chest Tube Mediastinal 85 81 Pleural Catheter Left 60 220 Urine 740 225 80 Emesis 250 Other: Voiding Method Indwelling Catheter Indwelling Catheter Indwelling Catheter ABP, PAP, CO, CI - Last Documented Arterial Blood Pressure 102/63 Pulmonary Artery Pressure 27/10 Cardiac Output 5.5 Cardiac Index 2.5 - Exam Physical exam revealed a 51-year-old white male obese in no distress. Presently on BiPAP HEENT: PERRLA, EOMI, anicteric, right IJ cordis noted in place. RESPIRATORY: Symmetrical chest expansion diminished breath sounds at the bases CARDIOVASCULAR: Normal S1 and S2, no S3 gallop, no murmur. Abdomen: Obese soft, nontender, nondistended. Diminished bowel sounds. INTEGUMENTARY: Skin is warm no rashes. Midline incision is clean. NEUROLOGIC: Alert oriented 3 no focal deficit. MUSKULOSKELETAL: No deformities and no limitation in range of motion PSYCHIATRIC: Normal mood affect and normal mental status examination. - Labs CBC & Chem 7: 02/02/22 05:45 02/02/22 05:45 Labs: Abnormal Lab Results - Last 24 Hours (Table) 02/01/22 02/01/22 02/01/22 Range/Units 11:46 17:42 20:24 WBC (3.8-10.6) k/uL Hgb (13.0-17.5) gm/dL Neutrophils # (1.3-7.7) k/uL Monocytes # (0-1.0) k/uL Sodium (137-145) mmol/L Carbon Dioxide (22-30) mmol/L BUN (9-20) mg/dL Creatinine (0.66-1.25) mg/dL Glucose (74-99) mg/dL POC Glucose (mg/dL) 152 H 127 H 130 H (70-110) mg/dL Calcium (8.4-10.2) mg/dL AST (17-59) U/L Total Protein (6.3-8.2) g/dL 02/02/22 02/02/2222 Range/Units 05:45 05:45 06:39 WBC 25.1 H (3.8-10.6) k/uL Hgb 12.8 L (13.0-17.5) gm/dL Neutrophils # 22.0 H (1.3-7.7) k/uL Monocytes # 1.2 H (0-1.0) k/uL Sodium 134 L (137-145) mmol/L Carbon Dioxide 20 L (22-30) mmol/L BUN 30 H (9-20) mg/dL Creatinine 1.77 H (0.66-1.25) mg/dL Glucose 139 H (74-99) mg/dL POC Glucose (mg/dL) 154 H (70-110) mg/dL Calcium 8.3 L (8.4-10.2) mg/dL AST 87 H (17-59) U/L Total Protein 5.6 L (6.3-8.2) g/dL Assessment and Plan Assessment: Impression: POD #2 aortic valve replacement with a 25 mm On-X mechanical valve Bicuspid calcific aortic stenosis/insufficiency Benign essential hypertension History of pulmonary embolism Chronic obstructive pulmonary disease FEV1 of 57% Severe obstructive sleep apnea syndrome with AHI of 60 Morbid obesity. History of COVID-19 infection back in June of 2021. Type 2 diabetes. Family history of coronary artery disease. Recommendation: Continue Plavix beta milton statin and aspirin Continue amiodarone BiPAP as needed Continue incentive spirometry Continue oxygen and titrate accordingly Continue GI and DVT prophylaxis. ambulation. We'll continue to follow Time with Patient: Less than 30
--- NOTE | 2022-02-02 10:42 | P.PN ---
Subjective Progress Note Date: 02/02/22 Principal diagnosis: Bicuspid calcific aortic stenosis/insufficiency. Past medical history significant for hypertension, hyperlipidemia, COPD, obstructive sleep apnea without home CPAP use, COVID-19 in June 2021, coronary artery disease with history of stent placement to his right coronary artery in 2018, occasional tobacco use smokes an occasional cigar, family history of coronary artery disease with his father having a myocardial infarction, chronic lower back pain and history of pulmonary embolus in which he was on Eliquis for anticoagulation. POD #2 aortic valve replacement with a 25 mm On-X mechanical valve, ligation of the left atrial appendage with a 35 mm Atricure clip, it aortic ultrasonography, patch closure of aortotomy with bovine pericardium area Postoperative acute blood loss anemia, expected given hemodilution and no pulmonary bypass. The patient was seen and examined in follow-up today 02/02/2022 at his bedside in the intensive care unit. Currently he is sitting up to the bedside chair, is awake, alert, oriented 3 and is in no acute apparent distress. Oxygen saturations are 90% on 15 L high flow nasal cannula and he is achieving 1250 mL on his incentive spirometry. According to the patient's night nurse the patient refused to wear BiPAP throughout the night. Bedside telemetry showing normal sinus rhythm heart rate 83 BPM. Mediastinal and left pleural chest tube to remain in place to low continuous wall suction -20 cm H2O. No air leak is present. Draining thin serosanguineous drainage. Mediastinal chest tube drained 140 mL output in the last 24 hours and his left pleural chest tube drained 180 mL output in the last 24 hours. Garcia catheter remains in place for accurate I's and O's. Urine output 195 mL in the last 8 hours. He remains hemodynamically stable and is currently on no inotropic pressor support. Laboratory results this morning show a WBC count of 25.1, hemoglobin 12.8, hematocrit 39.4, platelets 204, sodium 134, potassium 5.0, chloride 102, CO2 20, BUN 30, creatinine 1.77, glucose 139, calcium 8.3, AST 87 and ALT 47. The patient ambulated in the intensive care unit following this morning with standby assistance from 2 nursing staff and tolerated well with some complaints of shortness of breath while walking. Objective - Vital Signs Vital signs: Vital Signs Temp 98.9 F 02/01/22 20:00 Pulse 87 02/02/22 07:00 Resp 20 02/02/22 07:00 BP 103/72 02/02/22 07:00 Pulse Ox 88 L 02/02/22 07:00 FiO2 70 02/01/22 06:24 Intake & Output 02/01/22 02/02/22 02/02/22 18:59 06:59 18:59 Intake Total 892 1686 26 Output Total 1335 526 30 Balance -443 1160 -4 Weight 119.1 kg 118.9 kg Intake: IV 442 286 26 0.9 ns pressure bag 72 66 6 Lactated Ringers 1,000 ml 370 220 20 @ 20 mls/hr IV .Q24H [facility] Rx#:[id number] Oral 450 1400 Output: Chest Tube Drainage 345 301 Chest Tube Left Pleural/ 200 Mediastinal Chest Tube Mediastinal 85 81 Pleural Catheter Left 60 220 Urine 740 225 30 Emesis 250 Other: Voiding Method Indwelling Catheter Indwelling Catheter ABP, PAP, CO, CI - Last Documented Arterial Blood Pressure 102/63 Pulmonary Artery Pressure 27/10 Cardiac Output 5.5 Cardiac Index 2.5 - Exam CONSTITUTIONAL: Sitting up to the bedside chair in the intensive care unit, appears comfortable, cooperative, no apparent acute distress. HEENT: Neck is supple, no JVD, no lymphadenopathy. Right IJ Cordis catheter in place and functioning. RESPIRATORY: Lungs sounds essentially clear throughout, diminished to his bilateral bases, few expiratory wheezes. Respirations are symmetrical and nonlabored. Currently on 15 L high flow nasal cannula with oxygen saturations 90%. Able to achieve 1250 mL on his incentive spirometry. Strong cough. CARDIOVASCULAR: Regular rhythm and rate. S1 and S2 present with mechanical valvular click, negative for S3, gallop or murmur. Sternum is stable. Palpable peripheral pulses bilaterally, no edema to his bilateral lower extremities. No calf pain or tenderness noted. Heart hugger in place with patient demonstrating appropriate use. Knee-high MICHELLE hose and sequential compression devices in place to his bilateral lower extremities. GASTROINTESTINAL: Abdomen soft, nontender, nondistended. Hypoactive bowel sounds present 4 quadrants. Tolerating diet. Passing flatus. No guarding or rigidity. GENITOURINARY: Garcia present draining clear, yellow urine. Urine output 195 mL in the last 8 hours. INTEGUMENTARY: Skin is warm and dry with no evidence of clubbing or cyanosis. Midline sternal incision clean dry and well approximated, covered with dry intact dressing. NEUROLOGIC: Cranial nerves II through XII intact. No focal deficits. MUSKULOSKELETAL: Able to move all extremities, strength equal bilaterally, generalized weakness. PSYCHIATRIC: Alert and oriented to person place and time, appropriate affect, intact judgment and insight. INVASIVE LINES AND TUBES: Mediastinal/left pleural chest tubes present and connected to low continuous wall suction, no air leaks present. Mediastinal chest tube with 140 in the last 24 hours. Left pleural chest tube with 180 mL output in the last 24 hours. Atrial and ventricular epicardial pacemaker wires present and are grounded. Right internal jugular Cordis, and right radial arterial line present. - Allied health notes Allied health notes reviewed: nursing - Labs CBC & Chem 7: 02/02/22 05:45 02/02/22 05:45 Labs: Abnormal Lab Results - Last 24 Hours (Table) 02/01/22 02/01/22 02/01/22 Range/Units 08:31 11:46 17:42 WBC (3.8-10.6) k/uL Hgb (13.0-17.5) gm/dL Neutrophils # (1.3-7.7) k/uL Monocytes # (0-1.0) k/uL Sodium (137-145) mmol/L Carbon Dioxide (22-30) mmol/L BUN (9-20) mg/dL Creatinine (0.66-1.25) mg/dL Glucose (74-99) mg/dL POC Glucose (mg/dL) 148 H 152 H 127 H (70-110) mg/dL Calcium (8.4-10.2) mg/dL AST (17-59) U/L Total Protein (6.3-8.2) g/dL 02/01/22 02/02/22 02/02/22 Range/Units 20:24 05:45 05:45 WBC 25.1 H (3.8-10.6) k/uL Hgb 12.8 L (13.0-17.5) gm/dL Neutrophils # 22.0 H (1.3-7.7) k/uL Monocytes # 1.2 H (0-1.0) k/uL Sodium 134 L (137-145) mmol/L Carbon Dioxide 20 L (22-30) mmol/L BUN 30 H (9-20) mg/dL Creatinine 1.77 H (0.66-1.25) mg/dL Glucose 139 H (74-99) mg/dL POC Glucose (mg/dL) 130 H (70-110) mg/dL Calcium 8.3 L (8.4-10.2) mg/dL AST 87 H (17-59) U/L Total Protein 5.6 L (6.3-8.2) g/dL 02/02/22 Range/Units 06:39 WBC (3.8-10.6) k/uL Hgb (13.0-17.5) gm/dL Neutrophils # (1.3-7.7) k/uL Monocytes # (0-1.0) k/uL Sodium (137-145) mmol/L Carbon Dioxide (22-30) mmol/L BUN (9-20) mg/dL Creatinine (0.66-1.25) mg/dL Glucose (74-99) mg/dL POC Glucose (mg/dL) 154 H (70-110) mg/dL Calcium (8.4-10.2) mg/dL AST (17-59) U/L Total Protein (6.3-8.2) g/dL - Imaging and Cardiology Chest x-ray: report reviewed, image reviewed Assessment and Plan Assessment: 1. Bicuspid calcific aortic stenosis/insufficiency, status post aortic valve replacement with 25 mm On-X mechanical valve 2. Coronary artery disease status post stent placement to his right coronary artery in 2018 3. History of Hypertension 4. History of Hyperlipidemia, on atorvastatin 80 mg by mouth daily at bedtime on an outpatient basis 5. History of pulmonary embolus, was on Eliquis for anticoagulation on an outpatient basis 6. Chronic obstructive pulmonary disease, with a preoperative FEV1 57% of predicted value with a base of 2.01 L 7. Severe symptomatic obstructive sleep apnea, currently does not use CPAP therapy at home 8. Chronic ongoing tobacco dependence, smokes an occasional cigar 9. History of COVID-19 in June 2021 10. Morbid obesity with a BMI of 41.1 kg/m 11. Borderline diabetes mellitus type 2 with a preoperative hemoglobin A1c of 6.4%, diet-controlled 12. Family history of coronary artery disease with his father having a myocardial infarction at age 48 Plan: 1. Continue to maximize medical therapy with aspirin, statin, and beta imlton. Will increase metoprolol tartrate as tolerated. 2. Continue amiodarone 400 mg by mouth twice a day per protocol. 3. Wean oxygen as tolerated. Encourage incentive spirometry 10 times every hour while awake. Bronchodilators per pulmonology/critical care medicine. Continue Symbicort 804 0.5 g 2 puffs twice a day. 4. Increase activity, ambulate as tolerated. PT/OT/cardiac rehab consulted. 5. Will monitor daily labs and chest x-rays. Electrolyte replacement per protocol. 6. GI and DVT prophylaxis. 7. Pain control with current medication regimen. Continue to hold Toradol, avoid nephrotoxic agents. 8. Insulin management per primary care service. Borderline diabetic with a preoperative hemoglobin A1c 6.4%. 9. Discontinue right IJ Cordis. 10. Mediastinal and left pleural chest tube was removed without incident this a.m. 11. Continue Garcia catheter for another 24 hours for strict accurate intake and output. Daily weights. 12. Discontinue right radial arterial line. 13. We will remove his atrial and ventricular epicardial pacemaker wires today. 14. Patient will be started on Coumadin 5 mg by mouth 1 today after all lines and tubes have been discontinued, will stop Plavix and decrease aspirin to 81 mg by mouth daily once we start Coumadin. Goal INR for first 3 months 2.5-2.8, after 3 months goal INR 1.5-2. Daily PT and INR have been ordered. 15. More recommendations to follow based on patient's clinical course. Time with Patient: Greater than 30
[2022-02-02 12:12] LABS: Glucose,Whole Blood 146 mg/dL (70-110)
[2022-02-02] MEDS ORDERED: ALBUMIN HUMAN 5% 250 ML IVPB ONE (12:41)
[2022-02-02 13:17] LABS: INR 1.2 (<1.2); Prothrombin Time 12.6 sec (9.0-12.0)
--- NOTE | 2022-02-02 13:52 | P.PN ---
Subjective HISTORY OF PRESENTING ILLNESS Patient is a pleasant 51-year-old male with history of tobacco abuse, CAD status post stenting of the RCA, borderline diabetes mellitus type 2, hypertension, bicuspid valve with moderate to severe aortic stenosis and moderate aortic insufficiency. He has had progressive dyspnea since June attributed to the aortic valve and therefore evaluated for valve surgery. Heart catheterization showed mild disease of the proximal RCA and a patent stent in the mid RCA. He underwent aortic valve replacement 01/31/2022 with a 25 mm On-X mechanical valve, ligation of the left atrial appendage. He still has mild chest discomfort around the incision. Denies any significant shortness breath. Not on any vasopressors. 02/02 Patient seen and examined. Patient did have mild increase in creatinine up to 1.7. Denies any chest pain or pressure. No shortness breath. White blood cell up to 25.1, blood pressures stable in the 120s over 80s. Coumadin then ordered to start tonight. PHYSICAL EXAMINATION Vital signs reviewed. CONSTITUTIONAL: No apparent distress. HEENT: Head is normocephalic. Pupils are equal, round. Sclerae anicteric. Mucous membranes of the mouth are moist. No JVD. No carotid bruit. CHEST EXAMINATION: Lungs are clear to auscultation. No chest wall tenderness is noted on palpation or with deep breathing. HEART EXAMINATION: Regular rate and rhythm. S1, S2 heard. No murmurs, gallops or rub. ABDOMEN: Soft, nontender. Positive bowel sounds. EXTREMITIES: 2+ peripheral pulses, no lower extremity edema and no calf tenderness. NEUROLOGIC EXAMINATION: Patient is awake, alert and oriented x3. ASSESSMENT 1. Aortic stenosis and aortic insufficiency status post mechanical aortic valve 01/31 2. Hypertension 3. CAD with prior history of RCA stents with only mild disease by recent heart catheterization 4. Borderline diabetes mellitus 2 5. [employer] Aspirin and Plavix. Continue metoprolol and amiodarone for A. fib prophylaxis. Coumadin ordered for tonight. Monitor for any hypotensive episodes with acute kidney injury noted. Further recommendations to follow. Objective - Vital Signs Vital signs: Vital Signs Temp 97.9 F 02/02/22 12:08 Pulse 82 02/02/22 12:08 Resp 16 02/02/22 12:08 BP 122/75 02/02/22 12:08 Pulse Ox 92 L 02/02/22 12:08 FiO2 60 02/02/22 12:08 Intake & Output 02/01/22 02/02/22 02/02/22 18:59 06:59 18:59 Intake Total 892 1686 109 Output Total 1335 526 80 Balance -443 1160 29 Weight 119.1 kg 118.9 kg Intake: IV 442 286 109 0.9 ns pressure bag 72 66 9 Lactated Ringers 1,000 ml 370 220 100 @ 20 mls/hr IV .Q24H [facility] Rx#:[id number] Oral 450 1400 Output: Chest Tube Drainage 345 301 Chest Tube Left Pleural/ 200 Mediastinal Chest Tube Mediastinal 85 81 Pleural Catheter Left 60 220 Urine 740 225 80 Emesis 250 Other: Voiding Method Indwelling Catheter Indwelling Catheter Indwelling Catheter ABP, PAP, CO, CI - Last Documented Arterial Blood Pressure 102/63 Pulmonary Artery Pressure 27/10 Cardiac Output 5.5 Cardiac Index 2.5 - Labs CBC & Chem 7: 02/02/22 05:45 02/02/22 05:45 Labs: Abnormal Lab Results - Last 24 Hours (Table) 02/01/22 02/01/22 02/02/22 Range/Units 17:42 20:24 05:45 WBC 25.1 H (3.8-10.6) k/uL Hgb 12.8 L (13.0-17.5) gm/dL Neutrophils # 22.0 H (1.3-7.7) k/uL Monocytes # 1.2 H (0-1.0) k/uL PT (9.0-12.0) sec INR (<1.2) Sodium (137-145) mmol/L Carbon Dioxide (22-30) mmol/L BUN (9-20) mg/dL Creatinine (0.66-1.25) mg/dL Glucose (74-99) mg/dL POC Glucose (mg/dL) 127 H 130 H (70-110) mg/dL Calcium (8.4-10.2) mg/dL AST (17-59) U/L Total Protein (6.3-8.2) g/dL 02/02/22 02/02/22 02/02/22 Range/Units 05:45 06:39 12:10 WBC (3.8-10.6) k/uL Hgb (13.0-17.5) gm/dL Neutrophils # (1.3-7.7) k/uL Monocytes # (0-1.0) k/uL PT (9.0-12.0) sec INR (<1.2) Sodium 134 L (137-145) mmol/L Carbon Dioxide 20 L (22-30) mmol/L BUN 30 H (9-20) mg/dL Creatinine 1.77 H (0.66-1.25) mg/dL Glucose 139 H (74-99) mg/dL POC Glucose (mg/dL) 154 H 146 H (70-110) mg/dL Calcium 8.3 L (8.4-10.2) mg/dL AST 87 H (17-59) U/L Total Protein 5.6 L (6.3-8.2) g/dL 02/02/22 Range/Units 12:59 WBC (3.8-10.6) k/uL Hgb (13.0-17.5) gm/dL Neutrophils # (1.3-7.7) k/uL Monocytes # (0-1.0) k/uL PT 12.6 H (9.0-12.0) sec INR 1.2 H (<1.2) Sodium (137-145) mmol/L Carbon Dioxide (22-30) mmol/L BUN (9-20) mg/dL Creatinine (0.66-1.25) mg/dL Glucose (74-99) mg/dL POC Glucose (mg/dL) (70-110) mg/dL Calcium (8.4-10.2) mg/dL AST (17-59) U/L Total Protein (6.3-8.2) g/dL
--- NOTE | 2022-02-02 14:35 | P.PN ---
Subjective Progress Note Date: 02/02/22 - Reason for Consult Consult date: 02/01/22 Medical management Requesting physician: Stan Carroll - Chief Complaint Bicuspid calcified aortic stenosis/insufficiency status post AVR - History of Present Illness This is a 51-year-old gentleman with past medical history of CAD, OR, stenting of RCA ,PE on Eliquis, COPD, obstructive sleep apnea ,diabetes mellitus, gastroesophageal reflux disease, hypertension, hyperlipidemia, nicotine dependence, morbid obesity, Covid June 2021-continued to have progressive exertional shortness of breath, YASH reported normal LV function, moderate aortic stenosis with [id number] aortic regurgitation involving heavily calcified bicuspid aortic valve. Patient is status post Bicuspid calcified aortic stenosis/insufficiency status post AVR, ligation of left atrial appendage, postop day #1, tolerated procedure well. Extubated last night and currently maintaining O2 sats in the 90s on 15 L high flow nasal cannula. Incentive spirometer 7-800. Complains of chest tube discomfort. Chest x-ray reporting postop changes, scattered pleural progression multiple PACs, most likely atelectasis. Afebrile, WBC 11.4, hemoglobin 12.4, platelets 164 creatinine increased to 1.23, blood sugars controlled on insulin drip. CO/CI 5.5/2.5. Transitioned to oral amiodarone. Telemetry sinus rhythm. 02/02/2022 Patient is seen today in the ICU with multiple medical consultations following. Patient was maintained on 15L Non-rebreather and being placed on BIpap. Patient cotninues with chest tubes and chest xray shows no pneumothorax. Patient with a spike in wBC to 25 and is being closely monitored. Patient is afebrile. Patient reports shortness of breath and also some chest wall discomfort. Kidney functions worsening and is1.7 today and will continue to closely monitor. Patient is also maintained on oral amiodarone and metoprolol. REcommend chest xr ay and labs in the am. Recommend to continue to monitor accuchecks and continue with sliding scale and long acting. PhYSICAL EXAM: GENERAL: Sitting up in no acute distress on Bipap HEENT: Conjunctivae normal. eyes normal. MMM. NECK: Supple, No JVD. No thyroid enlargement. No LNs CARDIOVASCULAR: S1, S2 regular. mechanical click, wearing heart hugger. RESPIRATION: Clear to auscultation, Breath sounds diminished in the bases. No rhonchi or crackles. No bronchial breathing. Left pleural mediastinal chest tubes present. ABDOMEN: Soft, nontender . No guarding. no masses palpable. No ascites, No hepatosplenomegaly.Hypoactive Bowel sounds. LEGS: No edema. no swelling PSYCHIATRY: Alert and oriented X3, mood and affect normal. NERVOUS SYSTEM: Cranial N 2-12 grossly normal. Moves all 4 limbs. Diffuse weakness No focal deficits. Strength and sensation grossly intact.. Skin: Warm and dry, no rash Assessment: Symptomatic Bicuspid calcified aortic stenosis and insufficiency status post AVR with mechanical valve, ligation of left atrial appendage Acute Hypoxic respiratory failure,post extubation, requiring 15 L high flow nasal cannula and now bipap Atelectasis, postoperative, expected CAD, history of OR, stents History of COVID June 2021 COPD Obstructive sleep apnea, Diabetes mellitus hemoglobin A1c 6.4 Gastroesophageal reflux disease Hypertension Hyperlipidemia Nicotine dependence Morbid obesity, BMI 41.1 GI and DVT prophylaxis Full code Plan: Continue on current medication regimen with cardiology, CT surgery, and pulmonary following. Patient is on oral amidarone and metoprolo. Recommend to continue with accuchecks achs and sliding scale and long acting. Recommend to continue with nebulized bronchodilators, incentive spirometer encouraged and instructed to continue doing at least 10 times per hour. Increase ambulation as tolerated with PT and cardiac rehab. Recommend chest xray and labs in the am. The impression and plan of care has been dictated as directed by nurse practitioner, ERNESTO Hardin. : I performed a history and examination of this patient, discussed the same with the dictator. I agree with the dictator's note ,documented as a scribe. A total of 50% of the visit was spent by me. Objective - Vital Signs Vital signs: Vital Signs Temp 97.9 F 02/02/22 08:00 Pulse 80 02/02/22 08:17 Resp 23 02/02/22 08:00 BP 147/86 02/02/22 08:00 Pulse Ox 89 L 02/02/22 08:00 FiO2 70 02/01/22 06:24 Intake & Output 02/01/22 02/02/22 02/02/22 18:59 06:59 18:59 Intake Total 892 1686 46 Output Total 1335 526 50 Balance -443 1160 -4 Weight 119.1 kg 118.9 kg Intake: IV 442 286 46 0.9 ns pressure bag 72 66 6 Lactated Ringers 1,000 ml 370 220 40 @ 20 mls/hr IV .Q24H [facility] Rx#:[id number] Oral 450 1400 Output: Chest Tube Drainage 345 301 Chest Tube Left Pleural/ 200 Mediastinal Chest Tube Mediastinal 85 81 Pleural Catheter Left 60 220 Urine 740 225 50 Emesis 250 Other: Voiding Method Indwelling Catheter Indwelling Catheter ABP, PAP, CO, CI - Last Documented Arterial Blood Pressure 102/63 Pulmonary Artery Pressure 27/10 Cardiac Output 5.5 Cardiac Index 2.5 - Labs CBC & Chem 7: 02/02/22 05:45 02/02/22 05:45 Labs: Abnormal Lab Results - Last 24 Hours (Table) 02/01/22 02/01/22 02/01/22 Range/Units 11:46 17:42 20:24 WBC (3.8-10.6) k/uL Hgb (13.0-17.5) gm/dL Neutrophils # (1.3-7.7) k/uL Monocytes # (0-1.0) k/uL Sodium (137-145) mmol/L Carbon Dioxide (22-30) mmol/L BUN (9-20) mg/dL Creatinine (0.66-1.25) mg/dL Glucose (74-99) mg/dL POC Glucose (mg/dL) 152 H 127 H 130 H (70-110) mg/dL Calcium (8.4-10.2) mg/dL AST (17-59) U/L Total Protein (6.3-8.2) g/dL 02/02/22 02/02/22 02/02/22 Range/Units 05:45 05:45 06:39 WBC 25.1 H (3.8-10.6) k/uL Hgb 12.8 L (13.0-17.5) gm/dL Neutrophils # 22.0 H (1.3-7.7) k/uL Monocytes # 1.2 H (0-1.0) k/uL Sodium 134 L (137-145) mmol/L Carbon Dioxide 20 L (22-30) mmol/L BUN 30 H (9-20) mg/dL Creatinine 1.77 H (0.66-1.25) mg/dL Glucose 139 H (74-99) mg/dL POC Glucose (mg/dL) 154 H (70-110) mg/dL Calcium 8.3 L (8.4-10.2) mg/dL AST 87 H (17-59) U/L Total Protein 5.6 L (6.3-8.2) g/dL
[2022-02-02 16:52] LABS: Glucose,Whole Blood 150 mg/dL (70-110)
[2022-02-02] MEDS ORDERED: WARFARIN 5 MG TAB PO ONE (18:00)
[2022-02-02 20:15] LABS: Glucose,Whole Blood 118 mg/dL (70-110)
[2022-02-02] MEDS: ATORVASTATIN 80 MG TAB PO SCH (20:32)
[2022-02-02] MEDS: SENNOSIDES-DOCUSATE SODIUM 1 EACH TAB PO SCH (20:33)
[2022-02-03] MEDS: HYDROcodone/APAP 7.5-325MG 1 EACH TAB PO PRN (02:10)
[2022-02-03] MEDS ORDERED: DEXTROSE 5% IN WATER 100 ML with AMIODARONE 150 MG IV ONE ×4 (04:15→10:59)
[2022-02-03 06:18] LABS: Basophils % (A) 0 %; Eosinophils # (A) 0.3 k/uL (0-0.7); Eosinophils % (A) 2 %; HCT 35.7 % (39.0-53.0); HGB 11.5 gm/dL (13.0-17.5); Lymphocytes # (A) 1.8 k/uL (1.0-4.8); Lymphocytes % (A) 11 %; MCH 28.6 pg (25.0-35.0); MCHC 32.3 g/dL (31.0-37.0); MCV 88.5 fL (80.0-100.0); Mean Platelet Volume 8.4; Monocytes # (A) 0.9 k/uL (0-1.0); Monocytes % (A) 5 %; Neutrophils # (A) 13.5 k/uL (1.3-7.7); Neutrophils % (A) 81 %; Platelet Count 183 k/uL (150-450); RBC 4.04 m/uL (4.30-5.90); RDW 13.8 % (11.5-15.5); WBC 16.8 k/uL (3.8-10.6)
[2022-02-03 06:27] LABS: Albumin 3.1 g/dL (3.5-5.0); Calcium 8.5 mg/dL (8.4-10.2); Potassium 4.4 mmol/L (3.5-5.1); Total Bilirubin 0.7 mg/dL (0.2-1.3); Total Protein 5.3 g/dL (6.3-8.2)
[2022-02-03 06:43] LABS: Glucose,Whole Blood 124 mg/dL (70-110)
[2022-02-03 06:51] LABS: INR 1.4 (<1.2); Prothrombin Time 14.3 sec (9.0-12.0)
[2022-02-03] MEDS: INSULIN ASPART (NovoLOG) 100 UNIT/ML VIAL SQ SCH ×4 (06:52→20:41)
[2022-02-03] MEDS ORDERED: MAG HYDROX/AL HYDROX/SIMETH 30 ML CUP PO PRN (06:53)
--- NOTE | 2022-02-03 07:08 | XR ---
EXAMINATION TYPE: XR chest 2V DATE OF EXAM: 02/03/2022 5:58 AM COMPARISON: X-ray 02/02/2022, chest x-ray 02/01/2022 TECHNIQUE: XR chest 2V . CLINICAL INDICATION:Male, 51 years old with history of post op AVR; FINDINGS: Lungs/Pleura: Interval development of predominant perihilar airspace opacities as well as patchy airs pace opacity in the left upper lobe. No evidence for pneumothorax or sizable pleural effusion. Pulmonary vascularity: Unremarkable. Heart/mediastinum: Cardiomediastinal silhouette is enlarged and minimally improved from one day prior . Musculoskeletal: No acute osseous pathology. Midline sternotomy wires are noted and stable. Other findings: None Lines/Tubes: External cardiac leads project over the upper abdomen and lower chest. Interval removal of mediastina l drainage tube and left thoracotomy tube.. IMPRESSION: 1. Bilateral interstitial airspace opacities, new from one day prior and may relate to interstitial e rupali with superimposed infection thought to be less likely. 2. Postsurgical changes redemonstrated. Interval removal of mediastinal drain and thoracotomy tube.
[2022-02-03] MEDS: METOCLOPRAMIDE 5 MG/ML 2 ML VIAL IVP PRN (07:14)
[2022-02-03] MEDS: IPRATROPIUM-ALBUTEROL 3 ML NEB INHALATION SCH ×4 (07:55→19:33)
[2022-02-03] MEDS: SYMBICORT 80-4.5 MCG INHALER INHALATION SCH ×2 (07:55→19:33)
[2022-02-03 08:28] LABS: Glucose,Whole Blood 129 mg/dL (70-110)
[2022-02-03] MEDS: HEPARIN SODIUM,PORCINE/PF 5,000 UNIT/0.5 ML SYRINGE SQ SCH ×2 (08:29→16:27)
[2022-02-03] MEDS: METOPROLOL TARTRATE 25 MG TAB PO SCH ×2 (08:29→20:41)
[2022-02-03] MEDS: PANTOPRAZOLE 40 MG TABLET PO SCH (08:29)
[2022-02-03] MEDS: AMIODARONE 200 MG TAB PO SCH ×2 (08:29→20:40)
[2022-02-03] MEDS: guaiFENesin 600 MG TABLET.ER PO SCH ×2 (08:29→20:41)
[2022-02-03] MEDS: FENOFIBRATE 160 MG TAB PO SCH (08:30)
[2022-02-03] MEDS: ASPIRIN 325 MG TAB PO SCH (08:30)
[2022-02-03] MEDS: MUPIROCIN 2% OINT 22 GM TUBE NASAL SCH ×2 (08:31→20:41)
--- NOTE | 2022-02-03 09:00 | P.PN ---
Subjective Progress Note Date: 02/03/22 Principal diagnosis: Bicuspid calcific aortic stenosis/insufficiency. Past medical history significant for hypertension, hyperlipidemia, COPD, obstructive sleep apnea without home CPAP use, COVID-19 in June 2021, coronary artery disease with history of stent placement to his right coronary artery in 2018, occasional tobacco use smokes an occasional cigar, family history of coronary artery disease with his father having a myocardial infarction, chronic lower back pain and history of pulmonary embolus in which he was on Eliquis for anticoagulation. POD #3 aortic valve replacement with a 25 mm On-X mechanical valve, ligation of the left atrial appendage with a 35 mm Atricure clip, it aortic ultrasonography, patch closure of aortotomy with bovine pericardium area Postoperative acute blood loss anemia, expected given hemodilution and no pulmonary bypass. The patient was seen and examined in follow-up today 02/03/2022 at his bedside in the intensive care unit. Currently sitting up to the bedside chair, was awake, alert, oriented 3 and is in no acute distress. Denies any complaints of pain or shortness of breath at this time although is reporting that he feels somewhat irritable this morning due to some lack of sleep. Oxygen saturations are 93% on 13 L high flow nasal cannula and he is achieving 1000 mL on his incentive spirometry with encouragement. He remained hemodynamically stable and is currently on no inotropic or pressor support. Bedside telemetry showing atrial fibrillation heart rate 93 BPM and he remains on metoprolol tartrate 25 mg by mouth twice a day and amiodarone 400 mg by mouth twice a day. He is also received 2 boluses of 150 mg amiodarone IV piggyback. He reports he has been up ambulating in the hallway of the intensive care unit yesterday 4 and tolerated it well with some complaints of shortness of breath with ambulation. Laboratory results this morning show his WBC count trending down at 16.8, hemoglobin 11.5, hematocrit 35.7, platelets 183, sodium 130, potassium 4.4, BUN 41, creatinine 1.59, glucose 117, calcium 8.5, AST 58 and ALT 45. INR yesterday was 1.2 and he was given a dose of Coumadin 5 mg by mouth 1 and today his INR is 1.4 and his PT is 14.3. He remains afebrile the last 24 hours. Atrial and ventricular epicardial pacemaker wires were removed yesterday without incident. Objective - Vital Signs Vital signs: Vital Signs Temp 98.4 F 02/03/22 04:00 Pulse 92 02/03/22 08:08 Resp 20 02/03/22 07:00 BP 115/74 02/03/22 07:00 Pulse Ox 93 L 02/03/22 07:00 FiO2 60 02/02/22 23:00 Intake & Output 02/02/22 02/03/22 02/03/22 18:59 06:59 18:59 Intake Total 629 640 Output Total 380 540 40 Balance 249 100 -40 Weight 118.7 kg Intake: IV 129 0.9 ns pressure bag 9 Lactated Ringers 1,000 ml 120 @ 20 mls/hr IV .Q24H [facility] Rx#:[id number] Intake, IV Titration 100 Amount Dextrose 5% in Water 100 100 ml @ 618 mls/hr IV .Q10M ONE with Amiodarone 150 mg Rx#:[id number] Oral 500 540 Output: Urine 380 540 40 Other: Voiding Method Indwelling Catheter Indwelling Catheter ABP, PAP, CO, CI - Last Documented Arterial Blood Pressure 102/63 Pulmonary Artery Pressure 27/10 Cardiac Output 5.5 Cardiac Index 2.5 - Exam CONSTITUTIONAL: Sitting up to the bedside chair in the intensive care unit, appears comfortable, cooperative, no apparent acute distress. HEENT: Neck is supple, no JVD, no lymphadenopathy. RESPIRATORY: Lungs sounds essentially clear throughout, diminished to his bilateral bases, few expiratory wheezes. Respirations are symmetrical and nonlabored. Currently on 13 L high flow nasal cannula with oxygen saturations 93%. Able to achieve 1000 mL on his incentive spirometry. Strong cough. CARDIOVASCULAR: Irregular rhythm and controlled rate. S1 and S2 present with mechanical valvular click, negative for S3, gallop or murmur. Sternum is stable. Palpable peripheral pulses bilaterally, trace edema to his bilateral lower extremities. No calf pain or tenderness noted. Heart hugger in place with patient demonstrating appropriate use. Knee-high MICHELLE hose and sequential compression devices in place to his bilateral lower extremities. Bedside telemetry showing atrial fibrillation heart rate 93 BPM. GASTROINTESTINAL: Abdomen soft, nontender, nondistended. Active bowel sounds present 4 quadrants. Tolerating diet. Passing flatus. No guarding or rigidity. GENITOURINARY: Garcia present draining clear, yellow urine. Urine output 365 mL in the last 8 hours. INTEGUMENTARY: Skin is warm and dry with no evidence of clubbing or cyanosis. Midline sternal incision clean dry and well approximated, covered with dry intact dressing. NEUROLOGIC: Cranial nerves II through XII intact. No focal deficits. MUSKULOSKELETAL: Able to move all extremities, strength equal bilaterally. PSYCHIATRIC: Alert and oriented to person place and time, appropriate affect, intact judgment and insight. Irritable. - Allied health notes Allied health notes reviewed: nursing - Labs CBC & Chem 7: 02/03/22 05:40 02/03/22 05:40 Labs: Abnormal Lab Results - Last 24 Hours (Table) 02/02/22 02/02/22 02/02/22 Range/Units 12:10 12:59 16:50 WBC (3.8-10.6) k/uL RBC (4.30-5.90) m/uL Hgb (13.0-17.5) gm/dL Hct (39.0-53.0) % Neutrophils # (1.3-7.7) k/uL PT 12.6 H (9.0-12.0) sec INR 1.2 H (<1.2) Sodium (137-145) mmol/L BUN (9-20) mg/dL Creatinine (0.66-1.25) mg/dL Glucose (74-99) mg/dL POC Glucose (mg/dL) 146 H 150 H (70-110) mg/dL Total Protein (6.3-8.2) g/dL Albumin (3.5-5.0) g/dL 02/02/22 02/03/22 02/03/22 Range/Units 20:14 05:40 05:40 WBC 16.8 H (3.8-10.6) k/uL RBC 4.04 L (4.30-5.90) m/uL Hgb 11.5 L (13.0-17.5) gm/dL Hct 35.7 L (39.0-53.0) % Neutrophils # 13.5 H (1.3-7.7) k/uL PT 14.3 H (9.0-12.0) sec INR 1.4 H (<1.2) Sodium (137-145) mmol/L BUN (9-20) mg/dL Creatinine (0.66-1.25) mg/dL Glucose (74-99) mg/dL POC Glucose (mg/dL) 118 H (70-110) mg/dL Total Protein (6.3-8.2) g/dL Albumin (3.5-5.0) g/dL 02/03/22 02/03/22 02/03/22 Range/Units 05:40 06:41 08:26 WBC (3.8-10.6) k/uL RBC (4.30-5.90) m/uL Hgb (13.0-17.5) gm/dL Hct (39.0-53.0) % Neutrophils # (1.3-7.7) k/uL PT (9.0-12.0) sec INR (<1.2) Sodium 130 L (137-145) mmol/L BUN 41 H (9-20) mg/dL Creatinine 1.59 H (0.66-1.25) mg/dL Glucose 117 H (74-99) mg/dL POC Glucose (mg/dL) 124 H 129 H (70-110) mg/dL Total Protein 5.3 L (6.3-8.2) g/dL Albumin 3.1 L (3.5-5.0) g/dL - Imaging and Cardiology Chest x-ray: report reviewed, image reviewed Assessment and Plan Assessment: 1. Bicuspid calcific aortic stenosis/insufficiency, status post aortic valve replacement with 25 mm On-X mechanical valve 2. Coronary artery disease status post stent placement to his right coronary artery in 2018 3. History of Hypertension 4. History of Hyperlipidemia, on atorvastatin 80 mg by mouth daily at bedtime on an outpatient basis 5. History of pulmonary embolus, was on Eliquis for anticoagulation on an outpatient basis 6. Chronic obstructive pulmonary disease, with a preoperative FEV1 57% of predicted value with a base of 2.01 L 7. Severe symptomatic obstructive sleep apnea, currently does not use CPAP therapy at home 8. Chronic ongoing tobacco dependence, smokes an occasional cigar 9. History of COVID-19 in June 2021 10. Morbid obesity with a BMI of 41.1 kg/m 11. Borderline diabetes mellitus type 2 with a preoperative hemoglobin A1c of 6.4%, diet-controlled 12. Family history of coronary artery disease with his father having a myocardial infarction at age 48 13. Postoperative acute blood loss anemia, expected given hemodilution and cardiopulmonary bypass 14. Acute kidney injury, possibly secondary to hypotension Plan: 1. Continue to maximize medical therapy with aspirin, statin, and beta milton. Will increase metoprolol tartrate as tolerated. 2. Continue amiodarone 400 mg by mouth twice a day per protocol. Amiodarone 150 mg IV piggyback bolus 1 now. 3. Wean oxygen as tolerated. Encourage incentive spirometry 10 times every hour while awake. Bronchodilators per pulmonology/critical care medicine. Continue Symbicort 804 0.5 g 2 puffs twice a day. 4. Increase activity, ambulate as tolerated. PT/OT/cardiac rehab following. 5. Will monitor daily labs and chest x-rays. Electrolyte replacement per protocol. 6. GI and DVT prophylaxis. 7. Pain control with current medication regimen. Avoid nephrotoxic agents. 8. Insulin management per primary care service. Borderline diabetic with a preoperative hemoglobin A1c 6.4%. 9. Start Mucinex 1200 mg by mouth every 12 hours. 10. Remove Garcia catheter. Continue to monitor BUN and creatinine. May b ladder scan every 6 hours and when necessary post void residual. 11. Continue to record strict accurate intake and output. Daily weights. 12. The importance of risk modification including smoking cessation have been discussed with the patient. Smoking cessation education and counseling was provided, patient was strongly encouraged to quit smoking. 13. First postoperative shower today. Shower daily. 14. Coumadin 5 mg by mouth 1 today, INR today was 1.4. He was given Coumadin 5 mg by mouth 1 yesterday for an INR of 1.2. Once his INR is therapeutic we will decrease aspirin to 81 mg by mouth daily and discontinue his subcu heparin. Goal INR for first 3 months 2.5-2.8, after 3 months goal INR 1.5-2. Continue to monitor daily PT and INR. 15. More recommendations to follow based on patient's clinical course. Time with Patient: Greater than 30
[2022-02-03] MEDS ORDERED: FUROSEMIDE 10 MG/ML 4 ML VIAL IV STA (09:08)
--- NOTE | 2022-02-03 11:27 | P.PN ---
Subjective HISTORY OF PRESENTING ILLNESS Patient is a pleasant 51-year-old male with history of tobacco abuse, CAD status post stenting of the RCA, borderline diabetes mellitus type 2, hypertension, bicuspid valve with moderate to severe aortic stenosis and moderate aortic insufficiency. He has had progressive dyspnea since June attributed to the aortic valve and therefore evaluated for valve surgery. Heart catheterization showed mild disease of the proximal RCA and a patent stent in the mid RCA. He underwent aortic valve replacement 01/31/2022 with a 25 mm On-X mechanical valve, ligation of the left atrial appendage. He still has mild chest discomfort around the incision. Denies any significant shortness breath. Not on any vasopressors. 02/02 Patient seen and examined. Patient did have mild increase in creatinine up to 1.7. Denies any chest pain or pressure. No shortness breath. White blood cell up to 25.1, blood pressures stable in the 120s over 80s. Coumadin then ordered to start tonight. 02/03 Patient seen and examined. Patient went into A. fib with mild RVR heart rates in the 100-110 range. He was placed on amiodarone drip. Has noted to be more hyponatremic. Creatinine improving. He was given dose of IV Lasix this morning and chest x-ray shows more fluid congestion. Does admit to similar shortness breath as well as orthopnea. PHYSICAL EXAMINATION Vital signs reviewed. CONSTITUTIONAL: No apparent distress. HEENT: Head is normocephalic. Pupils are equal, round. Sclerae anicteric. Mucous membranes of the mouth are moist. No JVD. No carotid bruit. CHEST EXAMINATION: Lungs are clear to auscultation. No chest wall tenderness is noted on palpation or with deep breathing. HEART EXAMINATION: Regular rate and rhythm. S1, S2 heard. No murmurs, gallops or rub. ABDOMEN: Soft, nontender. Positive bowel sounds. EXTREMITIES: 2+ peripheral pulses, no lower extremity edema and no calf tenderness. NEUROLOGIC EXAMINATION: Patient is awake, alert and oriented x3. ASSESSMENT 1. Aortic stenosis and aortic insufficiency status post mechanical aortic valve 01/31 2. Hypertension 3. CAD with prior history of RCA stents with only mild disease by recent heart catheterization 4. Borderline diabetes mellitus 2 5. BARRON 6. Acute on chronic diastolic heart failure PLAN Remote history of stenting and agree with stopping Plavix and continue aspirin. Coumadin for his mechanical aortic valve. Patient noted to be in A. fib and continue with amiodarone. Additionally appears volume overloaded with chest x- ray showing volume overload as well as worsening hyponatremia. Lasix 40 mg twice a day and monitor response. Check repeat kidney function this afternoon. Further recommendations to follow. Objective - Vital Signs Vital signs: Vital Signs Temp 98.1 F 02/03/22 08:00 Pulse 93 02/03/22 11:22 Resp 24 02/03/22 09:00 BP 121/90 02/03/22 09:00 Pulse Ox 93 L 02/03/22 09:00 FiO2 60 02/02/22 23:00 Intake & Output 02/02/22 02/03/22 02/03/22 18:59 06:59 18:59 Intake Total 629 640 Output Total 380 540 135 Balance 249 100 -135 Weight 118.7 kg Intake: IV 129 0.9 ns pressure bag 9 Lactated Ringers 1,000 ml 120 @ 20 mls/hr IV .Q24H [facility] Rx#:[id number] Intake, IV Titration 100 Amount Dextrose 5% in Water 100 100 ml @ 618 mls/hr IV .Q10M ONE with Amiodarone 150 mg Rx#:[id number] Oral 500 540 Output: Urine 380 540 135 Other: Voiding Method Indwelling Catheter Indwelling Catheter ABP, PAP, CO, CI - Last Documented Arterial Blood Pressure 102/63 Pulmonary Artery Pressure 27/10 Cardiac Output 5.5 Cardiac Index 2.5 - Labs CBC & Chem 7: 02/03/22 05:40 02/03/22 05:40 Labs: Abnormal Lab Results - Last 24 Hours (Table) 02/02/22 02/02/22 02/02/22 Range/Units 12:10 12:59 16:50 WBC (3.8-10.6) k/uL RBC (4.30-5.90) m/uL Hgb (13.0-17.5) gm/dL Hct (39.0-53.0) % Neutrophils # (1.3-7.7) k/uL PT 12.6 H (9.0-12.0) sec INR 1.2 H (<1.2) Sodium (137-145) mmol/L BUN (9-20) mg/dL Creatinine (0.66-1.25) mg/dL Glucose (74-99) mg/dL POC Glucose (mg/dL) 146 H 150 H (70-110) mg/dL Total Protein (6.3-8.2) g/dL Albumin (3.5-5.0) g/dL 02/02/22 02/03/22 02/03/22 Range/Units 20:14 05:40 05:40 WBC 16.8 H (3.8-10.6) k/uL RBC 4.04 L (4.30-5.90) m/uL Hgb 11.5 L (13.0-17.5) gm/dL Hct 35.7 L (39.0-53.0) % Neutrophils # 13.5 H (1.3-7.7) k/uL PT 14.3 H (9.0-12.0) sec INR 1.4 H (<1.2) Sodium (137-145) mmol/L BUN (9-20) mg/dL Creatinine (0.66-1.25) mg/dL Glucose (74-99) mg/dL POC Glucose (mg/dL) 118 H (70-110) mg/dL Total Protein (6.3-8.2) g/dL Albumin (3.5-5.0) g/dL 02/03/22 02/03/22 02/03/22 Range/Units 05:40 06:41 08:26 WBC (3.8-10.6) k/uL RBC (4.30-5.90) m/uL Hgb (13.0-17.5) gm/dL Hct (39.0-53.0) % Neutrophils # (1.3-7.7) k/uL PT (9.0-12.0) sec INR (<1.2) Sodium 130 L (137-145) mmol/L BUN 41 H (9-20) mg/dL Creatinine 1.59 H (0.66-1.25) mg/dL Glucose 117 H (74-99) mg/dL POC Glucose (mg/dL) 124 H 129 H (70-110) mg/dL Total Protein 5.3 L (6.3-8.2) g/dL Albumin 3.1 L (3.5-5.0) g/dL
--- NOTE | 2022-02-03 11:31 | P.PN ---
Subjective Progress Note Date: 02/03/22 Principal diagnosis: POD #3aortic valve replacement with a 25 mm On-X mechanical valve, ligation of the left atrial appendage with a 35 mm Atricure clip, it aortic ultrasonography, patch closure of aortotomy with bovine pericardium area Patient was reevaluated today on 02/01/22, patient was successfully extubated at 6:15 p.m. last evening. Initially extubated to BiPAP, and he is now on high flow nasal cannula at 15 L/m. Doing fairly well with incentive spirometry achieving about 1000 mL. Patient continues to have some pain from his chest tube, and he continues to have right IJ [place]-Char[place] catheter and Cordis in place. He is hemodynamically stable, cardiac output is 5.5 and cardiac index is 2.5 his PA pressure 28/13 and CVP is 14. Remains on amiodarone drip at 0.5 mg/m as per protocol. Chest x-ray showed mostly postoperative changes, and scattered pleural parenchymal opacities reflecting mostly atelectasis. Expected. W scan is 13.7 hemoglobin 8.2, basic metabolic profile is normal creatinine is up to 1.23 today, was 1.06 yesterday. Blood sugars were 35 rest of the metabolic panel is normal Reevaluated today on 02/02/22, remains in the ICU, he is presently on BiPAP with IPAP of 14/6/60% O2 saturation is in the mid 90s. He is on IV fluid to KVO. He is postoperative day #2 doing fairly well, he is relatively asymptomatic, improving with his incentive spirometer. Nonetheless his O2 saturation remains marginal on 60% FiO2. Chest x-ray showed postsurgical changes no evidence of active disease noted. Left hemidiaphragm seems to be elevated Reevaluated today on 02/03/22, patient remains in the ICU, sitting up in the bedside chair, awake, alert oriented 3, in no distress. Patient seems to be doing great. However he remains on 15 L high flow nasal cannula and his chest x-ray is showing evidence of interstitial edema hence I'm recommending a dose of Lasix 40 mg IV push today. His bedside telemetry showing atrial fibrillation rate of 93/m, patient is on metoprolol is also on amiodarone orally. He received 2 boluses of amiodarone 150 mg IV piggyback. Overall the patient is doing well otherwise. WBC count 16.8 hemoglobin is 11.5. Electrolytes are normal BUN is 41 and creatinine 1.59 Objective - Vital Signs Vital signs: Vital Signs Temp 98.1 F 02/03/22 08:00 Pulse 93 02/03/22 11:22 Resp 24 02/03/22 09:00 BP 121/90 02/03/22 09:00 Pulse Ox 93 L 02/03/22 09:00 FiO2 60 02/02/22 23:00 Intake & Output 02/02/22 02/03/22 02/03/22 18:59 06:59 18:59 Intake Total 629 640 Output Total 380 540 135 Balance 249 100 -135 Weight 118.7 kg Intake: IV 129 0.9 ns pressure bag 9 Lactated Ringers 1,000 ml 120 @ 20 mls/hr IV .Q24H [facility] Rx#:[id number] Intake, IV Titration 100 Amount Dextrose 5% in Water 100 100 ml @ 618 mls/hr IV .Q10M ONE with Amiodarone 150 mg Rx#:[id number] Oral 500 540 Output: Urine 380 540 135 Other: Voiding Method Indwelling Catheter Indwelling Catheter ABP, PAP, CO, CI - Last Documented Arterial Blood Pressure 102/63 Pulmonary Artery Pressure 27/10 Cardiac Output 5.5 Cardiac Index 2.5 - Exam Physical exam revealed a 51-year-old white male obese in no distress. On 13 L high flow nasal cannula HEENT: PERRLA, EOMI, anicteric, right IJ cordis noted in place. RESPIRATORY: Diminished breath sounds at the bases no rhonchi no wheezes CARDIOVASCULAR: Irregular irregular rhythm. Normal S1 and S2, no S3 gallop, no murmur. Abdomen: Obese soft, nontender, nondistended. Diminished bowel sounds. INTEGUMENTARY: Skin is warm no rashes. Midline incision is clean. NEUROLOGIC: Alert oriented 3 no focal deficit. MUSKULOSKELETAL: No deformities and no limitation in range of motion PSYCHIATRIC: Normal mood affect and normal mental status examination. - Labs CBC & Chem 7: 02/03/22 05:40 02/03/22 05:40 Labs: Abnormal Lab Results - Last 24 Hours (Table) 02/02/22 02/02/22 02/02/22 Range/Units 12:10 12:59 16:50 WBC (3.8-10.6) k/uL RBC (4.30-5.90) m/uL Hgb (13.0-17.5) gm/dL Hct (39.0-53.0) % Neutrophils # (1.3-7.7) k/uL PT 12.6 H (9.0-12.0) sec INR 1.2 H (<1.2) Sodium (137-145) mmol/L BUN (9-20) mg/dL Creatinine (0.66-1.25) mg/dL Glucose (74-99) mg/dL POC Glucose (mg/dL) 146 H 150 H (70-110) mg/dL Total Protein (6.3-8.2) g/dL Albumin (3.5-5.0) g/dL 02/02/22 02/03/22 02/03/22 Range/Units 20:14 05:40 05:40 WBC 16.8 H (3.8-10.6) k/uL RBC 4.04 L (4.30-5.90) m/uL Hgb 11.5 L (13.0-17.5) gm/dL Hct 35.7 L (39.0-53.0) % Neutrophils # 13.5 H (1.3-7.7) k/uL PT 14.3 H (9.0-12.0) sec INR 1.4 H (<1.2) Sodium (137-145) mmol/L BUN (9-20) mg/dL Creatinine (0.66-1.25) mg/dL Glucose (74-99) mg/dL POC Glucose (mg/dL) 118 H (70-110) mg/dL Total Protein (6.3-8.2) g/dL Albumin (3.5-5.0) g/dL 02/03/22 02/03/22 02/03/22 Range/Units 05:40 06:41 08:26 WBC (3.8-10.6) k/uL RBC (4.30-5.90) m/uL Hgb (13.0-17.5) gm/dL Hct (39.0-53.0) % Neutrophils # (1.3-7.7) k/uL PT (9.0-12.0) sec INR (<1.2) Sodium 130 L (137-145) mmol/L BUN 41 H (9-20) mg/dL Creatinine 1.59 H (0.66-1.25) mg/dL Glucose 117 H (74-99) mg/dL POC Glucose (mg/dL) 124 H 129 H (70-110) mg/dL Total Protein 5.3 L (6.3-8.2) g/dL Albumin 3.1 L (3.5-5.0) g/dL Assessment and Plan Assessment: Impression: POD #3 aortic valve replacement with a 25 mm On-X mechanical valve Bicuspid calcific aortic stenosis/insufficiency Benign essential hypertension History of pulmonary embolism Chronic obstructive pulmonary disease FEV1 of 57% Severe obstructive sleep apnea syndrome with AHI of 60 Morbid obesity. History of COVID-19 infection back in June of 2021. Type 2 diabetes. Family history of coronary artery disease. Recommendation: Continue Plavix beta milton statin and aspirin Continue amiodarone, patient is on oral amiodarone. Gentle diuresis. BiPAP at night or as needed Continue incentive spirometry Continue oxygen and titrate accordingly Continue GI and DVT prophylaxis. ambulation. We'll continue to follow Time with Patient: Less than 30
[2022-02-03 11:53] LABS: Glucose,Whole Blood 248 mg/dL (70-110)
[2022-02-03] MEDS: INSULIN DETEMIR (LEVEMIR) 100 UNIT/ML SYR SQ SCH (11:58)
[2022-02-03] MEDS ORDERED: LACTULOSE 20 GM/30 ML CUP PO ONE (11:59)
[2022-02-03] MEDS: FUROSEMIDE 10 MG/ML 4 ML VIAL IV SCH (16:27)
[2022-02-03 16:33] LABS: Glucose,Whole Blood 123 mg/dL (70-110)
[2022-02-03] MEDS ORDERED: WARFARIN 5 MG TAB PO ONE (18:00)
--- NOTE | 2022-02-03 18:05 | P.PN ---
Subjective Progress Note Date: 02/03/22 - Reason for Consult Consult date: 02/01/22 Medical management Requesting physician: Stan Carroll - Chief Complaint Bicuspid calcified aortic stenosis/insufficiency status post AVR - History of Present Illness This is a 51-year-old gentleman with past medical history of CAD, NM, stenting of RCA ,PE on Eliquis, COPD, obstructive sleep apnea ,diabetes mellitus, gastroesophageal reflux disease, hypertension, hyperlipidemia, nicotine dependence, morbid obesity, Covid June 2021-continued to have progressive exertional shortness of breath, YASH reported normal LV function, moderate aortic stenosis with [id number] aortic regurgitation involving heavily calcified bicuspid aortic valve. Patient is status post Bicuspid calcified aortic stenosis/insufficiency status post AVR, ligation of left atrial appendage, postop day #1, tolerated procedure well. Extubated last night and currently maintaining O2 sats in the 90s on 15 L high flow nasal cannula. Incentive spirometer 7-800. Complains of chest tube discomfort. Chest x-ray reporting postop changes, scattered pleural progression multiple PACs, most likely atelectasis. Afebrile, WBC 11.4, hemoglobin 12.4, platelets 164 creatinine increased to 1.23, blood sugars controlled on insulin drip. CO/CI 5.5/2.5. Transitioned to oral amiodarone. Telemetry sinus rhythm. 02/02/2022 Patient is seen today in the ICU with multiple medical consultations following. Patient was maintained on 15L Non-rebreather and being placed on BIpap. Patient cotninues with chest tubes and chest xray shows no pneumothorax. Patient with a spike in wBC to 25 and is being closely monitored. Patient is afebrile. Patient reports shortness of breath and also some chest wall discomfort. Kidney functions worsening and is1.7 today and will continue to closely monitor. Patient is also maintained on oral amiodarone and metoprolol. REcommend chest xr ay and labs in the am. Recommend to continue to monitor accuchecks and continue with sliding scale and long acting. 02/03/2022 Patient is seen sitting up in the chair in the ICU and currently maintained on 13L via NC. Bipap as needed. Patient has had chest tubes and drains removed and chest xray show bilateral patchy densities and was given a dose of lasix. Patient is continued on sliding scale and long acting and blood sugars have been controlled. Patient not eating much yet. Patient reports to passing gas and voiding but no bowel movement as of yet. Patient is afebrile and denies worsening shortness of breath. Patient reports some chest wall discomfort and continued heart hugger use. IS at the bedside and encouraged to continue using at least 10 times per hour while awake. Patient reports occasional nausea, no vomiting today. Sodium trending down at 130 today and kidney functions are improving. PhYSICAL EXAM: GENERAL: Sitting up in no acute distress on 13L via NC HEENT: Conjunctivae normal. eyes normal. MMM. NECK: Supple, No JVD. No thyroid enlargement. No LNs CARDIOVASCULAR: S1, S2 regular. muffled wearing heart hugger. RESPIRATION: Clear to auscultation, Breath sounds diminished in the bases. No rhonchi or crackles. No bronchial breathing. ABDOMEN: Soft, nontender . No guarding. no masses palpable. No ascites, No hepatosplenomegaly.Hypoactive Bowel sounds. LEGS: No edema. no swelling PSYCHIATRY: Alert and oriented X3, mood and affect normal. NERVOUS SYSTEM: Cranial N 2-12 grossly normal. Moves all 4 limbs. Diffuse weakness No focal deficits. Strength and sensation grossly intact.. Skin: Warm and dry, no rash Assessment: Symptomatic Bicuspid calcified aortic stenosis and insufficiency status post AVR with mechanical valve, ligation of left atrial appendage Acute Hypoxic respiratory failure,post extubation, requiring 13 L high flow nasal cannula with intermittent bipap Atelectasis, postoperative, expected CAD, history of NM, stents History of COVID June 2021 COPD Obstructive sleep apnea, Diabetes mellitus hemoglobin A1c 6.4 Gastroesophageal reflux disease Hypertension Hyperlipidemia Nicotine dependence Morbid obesity, BMI 41.1 GI and DVT prophylaxis Full code Plan: Continue on current medication regimen with cardiology, CT surgery, and pulmonary following. Patient is on oral amidarone and metoprolol. Recommend to continue with accuchecks achs and sliding scale and long acting. Recommend to continue with nebulized bronchodilators, incentive spirometer encouraged and instructed to continue doing at least 10 times per hour. Increase ambulation as tolerated with PT and cardiac rehab. Recommend chest xray and labs in the am. We will continue to follow during hospitalization. Thank you for this consultation. The impression and plan of care has been dictated as directed by nurse practitioner, ERNESTO Hardin. : I performed a history and examination of this patient, discussed the same with the dictator. I agree with the dictator's note ,documented as a scribe. A total of 50% of the visit was spent by me. Objective - Vital Signs Vital signs: Vital Signs Temp 98.1 F 02/03/22 08:00 Pulse 109 H 02/03/22 09:00 Resp 24 02/03/22 09:00 BP 121/90 02/03/22 09:00 Pulse Ox 93 L 02/03/22 09:00 FiO2 60 02/02/22 23:00 Intake & Output 02/02/22 02/03/22 02/03/22 18:59 06:59 18:59 Intake Total 629 640 Output Total 380 540 135 Balance 249 100 -135 Weight 118.7 kg Intake: IV 129 0.9 ns pressure bag 9 Lactated Ringers 1,000 ml 120 @ 20 mls/hr IV .Q24H [facility] Rx#:[id number] Intake, IV Titration 100 Amount Dextrose 5% in Water 100 100 ml @ 618 mls/hr IV .Q10M ONE with Amiodarone 150 mg Rx#:[id number] Oral 500 540 Output: Urine 380 540 135 Other: Voiding Method Indwelling Catheter Indwelling Catheter ABP, PAP, CO, CI - Last Documented Arterial Blood Pressure 102/63 Pulmonary Artery Pressure 27/10 Cardiac Output 5.5 Cardiac Index 2.5 - Labs CBC & Chem 7: 02/03/22 05:40 02/03/22 05:40 Labs: Abnormal Lab Results - Last 24 Hours (Table) 02/02/22 02/02/22 02/02/22 Range/Units 12:10 12:59 16:50 WBC (3.8-10.6) k/uL RBC (4.30-5.90) m/uL Hgb (13.0-17.5) gm/dL Hct (39.0-53.0) % Neutrophils # (1.3-7.7) k/uL PT 12.6 H (9.0-12.0) sec INR 1.2 H (<1.2) Sodium (137-145) mmol/L BUN (9-20) mg/dL Creatinine (0.66-1.25) mg/dL Glucose (74-99) mg/dL POC Glucose (mg/dL) 146 H 150 H (70-110) mg/dL Total Protein (6.3-8.2) g/dL Albumin (3.5-5.0) g/dL 02/02/22 02/03/22 02/03/22 Range/Units 20:14 05:40 05:40 WBC 16.8 H (3.8-10.6) k/uL RBC 4.04 L (4.30-5.90) m/uL Hgb 11.5 L (13.0-17.5) gm/dL Hct 35.7 L (39.0-53.0) % Neutrophils # 13.5 H (1.3-7.7) k/uL PT 14.3 H (9.0-12.0) sec INR 1.4 H (<1.2) Sodium (137-145) mmol/L BUN (9-20) mg/dL Creatinine (0.66-1.25) mg/dL Glucose (74-99) mg/dL POC Glucose (mg/dL) 118 H (70-110) mg/dL Total Protein (6.3-8.2) g/dL Albumin (3.5-5.0) g/dL 02/03/22 02/03/22 02/03/22 Range/Units 05:40 06:41 08:26 WBC (3.8-10.6) k/uL RBC (4.30-5.90) m/uL Hgb (13.0-17.5) gm/dL Hct (39.0-53.0) % Neutrophils # (1.3-7.7) k/uL PT (9.0-12.0) sec INR (<1.2) Sodium 130 L (137-145) mmol/L BUN 41 H (9-20) mg/dL Creatinine 1.59 H (0.66-1.25) mg/dL Glucose 117 H (74-99) mg/dL POC Glucose (mg/dL) 124 H 129 H (70-110) mg/dL Total Protein 5.3 L (6.3-8.2) g/dL Albumin 3.1 L (3.5-5.0) g/dL
[2022-02-03 18:44] LABS: Albumin 3.1 g/dL (3.5-5.0); Calcium 8.2 mg/dL (8.4-10.2); Potassium 3.8 mmol/L (3.5-5.1)
[2022-02-03 20:10] LABS: Glucose,Whole Blood 156 mg/dL (70-110)
[2022-02-03] MEDS: MELATONIN 3 MG TABLET PO SCH (20:40)
[2022-02-03] MEDS: SENNOSIDES-DOCUSATE SODIUM 1 EACH TAB PO SCH (20:40)
[2022-02-03] MEDS: ATORVASTATIN 80 MG TAB PO SCH (20:40)
[2022-02-03] MEDS: ACETAMINOPHEN TAB 325 MG TAB PO PRN (22:32)
[2022-02-04] MEDS: HEPARIN SODIUM,PORCINE/PF 5,000 UNIT/0.5 ML SYRINGE SQ SCH (00:37)
[2022-02-04 06:02] LABS: Basophils % (A) 0 %; Eosinophils # (A) 0.2 k/uL (0-0.7); Eosinophils % (A) 2 %; HCT 33.2 % (39.0-53.0); HGB 10.8 gm/dL (13.0-17.5); Lymphocytes % (A) 18 %; MCH 28.8 pg (25.0-35.0); MCHC 32.6 g/dL (31.0-37.0); MCV 88.3 fL (80.0-100.0); Mean Platelet Volume 8.6; Monocytes # (A) 0.6 k/uL (0-1.0); Monocytes % (A) 5 %; Neutrophils # (A) 8.1 k/uL (1.3-7.7); Neutrophils % (A) 73 %; Platelet Count 180 k/uL (150-450); RBC 3.75 m/uL (4.30-5.90); RDW 13.8 % (11.5-15.5); WBC 11.1 k/uL (3.8-10.6)
[2022-02-04 06:11] LABS: Prothrombin Time 70.8 sec (9.0-12.0)
[2022-02-04 06:28] LABS: Albumin 2.9 g/dL (3.5-5.0); Calcium 8.4 mg/dL (8.4-10.2); Potassium 3.8 mmol/L (3.5-5.1); Total Bilirubin 0.6 mg/dL (0.2-1.3); Total Protein 5.2 g/dL (6.3-8.2)
[2022-02-04 06:35] LABS: Glucose,Whole Blood 139 mg/dL (70-110)
[2022-02-04] MEDS: INSULIN ASPART (NovoLOG) 100 UNIT/ML VIAL SQ SCH ×4 (06:47→20:12)
--- NOTE | 2022-02-04 07:32 | P.PN ---
Subjective Progress Note Date: 02/04/22 Principal diagnosis: Status post aortic valve replacement The patient is a 51-year-old gentleman who underwent recently an aortic valve replacement for severe aortic stenosis/aortic regurgitation and also he is known to have coronary artery disease with prior RCA stenting as well as borderline diabetes as well as chronic kidney disease. The patient was admitted to the hospital with volume overload. He presented with increasing shortness of breath but no symptoms of chest pain or chest discomfort. The patient was seen at this morning. He seems to be overload as well on examination was diminished breathing sounds bilaterally and crackles bilaterally as well. He has mild bilateral lower extremity edema. He is on Lasix IV which I will suggest to continue on continue monitor the kidney function and electrolytes. He is on Coumadin for the mechanical aortic valve. Beside that would continue the current medical regimen and continue following up with the patient. The patient is also on amiodarone for paroxysmal atrial fibrillation which could be contributing to elevated the INR level. He seems to be maintaining normal sinus mechanism. Objective - Vital Signs Vital signs: Vital Signs Temp 98.0 F 02/04/22 00:00 Pulse 86 02/04/22 07:00 Resp 23 02/04/22 07:00 BP 138/87 02/04/22 07:00 Pulse Ox 94 L 02/04/22 07:00 FiO2 60 02/02/22 23:00 Intake & Output 02/03/22 02/04/22 02/04/22 18:59 06:59 18:59 Intake Total 220 500 Output Total 860 1350 0 Balance -640 -850 0 Weight 117 kg Intake: Oral 220 500 Output: Urine 860 1350 0 Other: Voiding Method Toilet Toilet Urinal Urinal # Voids 1 1 ABP, PAP, CO, CI - Last Documented Arterial Blood Pressure 102/63 Pulmonary Artery Pressure 27/10 Cardiac Output 5.5 Cardiac Index 2.5 - Constitutional General appearance: Present: no acute distress - Respiratory Respiratory: bilateral: rhonchi - Cardiovascular Rhythm: regular Heart sounds: normal: S1, S2 Abnormal Heart Sounds: Present: systolic murmur - Labs CBC & Chem 7: 02/04/22 05:27 02/04/22 05:27 Labs: Abnormal Lab Results - Last 24 Hours (Table) 02/03/22 02/03/22 02/03/22 Range/Units 05:40 08:26 11:50 WBC (3.8-10.6) k/uL RBC (4.30-5.90) m/uL Hgb (13.0-17.5) gm/dL Hct (39.0-53.0) % Neutrophils # (1.3-7.7) k/uL PT (9.0-12.0) sec INR (<1.2) Sodium (137-145) mmol/L Chloride (98-107) mmol/L Carbon Dioxide (22-30) mmol/L BUN (9-20) mg/dL Creatinine (0.66-1.25) mg/dL Glucose (74-99) mg/dL POC Glucose (mg/dL) 129 H 248 H (70-110) mg/dL Calcium (8.4-10.2) mg/dL AST (17-59) U/L ALT (4-49) U/L Total Protein (6.3-8.2) g/dL Albumin (3.5-5.0) g/dL Procalcitonin 4.15 H (0.02-0.09) ng/mL 02/03/22 02/03/22 02/03/22 Range/Units 16:32 18:09 20:07 WBC (3.8-10.6) k/uL RBC (4.30-5.90) m/uL Hgb (13.0-17.5) gm/dL Hct (39.0-53.0) % Neutrophils # (1.3-7.7) k/uL PT (9.0-12.0) sec INR (<1.2) Sodium 131 L (137-145) mmol/L Chloride (98-107) mmol/L Carbon Dioxide 21 L (22-30) mmol/L BUN 44 H (9-20) mg/dL Creatinine 1.49 H (0.66-1.25) mg/dL Glucose 132 H (74-99) mg/dL POC Glucose (mg/dL) 123 H 156 H (70-110) mg/dL Calcium 8.2 L (8.4-10.2) mg/dL AST (17-59) U/L ALT (4-49) U/L Total Protein (6.3-8.2) g/dL Albumin 3.1 L (3.5-5.0) g/dL Procalcitonin (0.02-0.09) ng/mL 02/04/22 02/04/22 02/04/22 Range/Units 05:27 05:27 05:27 WBC 11.1 H (3.8-10.6) k/uL RBC 3.75 L (4.30-5.90) m/uL Hgb 10.8 L (13.0-17.5) gm/dL Hct 33.2 L (39.0-53.0) % Neutrophils # 8.1 H (1.3-7.7) k/uL PT 70.8 H (9.0-12.0) sec INR 7.0 H* (<1.2) Sodium 132 L (137-145) mmol/L Chloride 96 L (98-107) mmol/L Carbon Dioxide (22-30) mmol/L BUN 44 H (9-20) mg/dL Creatinine 1.45 H (0.66-1.25) mg/dL Glucose (74-99) mg/dL POC Glucose (mg/dL) (70-110) mg/dL Calcium (8.4-10.2) mg/dL AST 61 H (17-59) U/L ALT 60 H (4-49) U/L Total Protein 5.2 L (6.3-8.2) g/dL Albumin 2.9 L (3.5-5.0) g/dL Procalcitonin (0.02-0.09) ng/mL 02/04/22 Range/Units 06:33 WBC (3.8-10.6) k/uL RBC (4.30-5.90) m/uL Hgb (13.0-17.5) gm/dL Hct (39.0-53.0) % Neutrophils # (1.3-7.7) k/uL PT (9.0-12.0) sec INR (<1.2) Sodium (137-145) mmol/L Chloride (98-107) mmol/L Carbon Dioxide (22-30) mmol/L BUN (9-20) mg/dL Creatinine (0.66-1.25) mg/dL Glucose (74-99) mg/dL POC Glucose (mg/dL) 139 H (70-110) mg/dL Calcium (8.4-10.2) mg/dL AST (17-59) U/L ALT (4-49) U/L Total Protein (6.3-8.2) g/dL Albumin (3.5-5.0) g/dL Procalcitonin (0.02-0.09) ng/mL Assessment and Plan Assessment: Assessment #1 status post aortic valve replacement using mechanical valve #2 CAD with prior stenting of the RCA #3 fluid overload secondary to heart failure with preserved ejection fraction #4 chronic renal disease #5 paroxysmal atrial fibrillation Plan #1 continue moniton the INR #2 continue the current medical regimen #3 I would advise continue IV diuretics. He continues to be fluid overload was evidence of right and left failure #4 monitor the kidney function and electrolytes #5 follow-up with the patient
--- NOTE | 2022-02-04 07:44 | XR ---
EXAMINATION TYPE: XR chest 1V portable DATE OF EXAM: 02/04/2022 6:12 AM COMPARISON: Chest radiographs from 02/03/2022 TECHNIQUE: XR chest 1V portable Portable AP radiograph of the chest. CLINICAL INDICATION:Male, 51 years old with history of Post op AVR; FINDINGS: Lungs/Pleura: Multifocal airspace opacities. No evidence of pneumothorax or pleural effusion. Pulmonary vascularity: Unremarkable. Heart/mediastinum: Cardiomediastinal silhouette is enlarged and stable. Aortic valve replacement yoseph nges. atrial appendage occlusion device is present. Musculoskeletal: No acute osseous pathology. IMPRESSION: Multifocal airspace opacities not significantly changed from one day prior. Findings suggestive of pu lmonary edema.
[2022-02-04] MEDS: FUROSEMIDE 10 MG/ML 4 ML VIAL IV SCH ×2 (08:04→20:14)
[2022-02-04] MEDS: AMIODARONE 200 MG TAB PO SCH ×2 (08:04→20:14)
[2022-02-04] MEDS: PANTOPRAZOLE 40 MG TABLET PO SCH (08:04)
[2022-02-04] MEDS: ERGOCALCIFEROL 1,250 MCG (50,000 IU) CAPSULE PO SCH (08:05)
[2022-02-04] MEDS: guaiFENesin 600 MG TABLET.ER PO SCH (08:05)
[2022-02-04] MEDS: ASPIRIN 81 MG PO SCH (08:05)
[2022-02-04] MEDS: FENOFIBRATE 160 MG TAB PO SCH (08:05)
[2022-02-04] MEDS: METOPROLOL TARTRATE 25 MG TAB PO SCH ×2 (08:05→20:14)
[2022-02-04 08:30] LABS: Prothrombin Time 87.1 sec (9.0-12.0)
[2022-02-04 08:32] LABS: INR 8.5 (<1.2)
[2022-02-04] MEDS: IPRATROPIUM-ALBUTEROL 3 ML NEB INHALATION SCH ×4 (09:05→20:14)
[2022-02-04] MEDS: SYMBICORT 80-4.5 MCG INHALER INHALATION SCH ×2 (09:06→20:14)
--- NOTE | 2022-02-04 09:31 | P.PN ---
Subjective Progress Note Date: 02/04/22 Principal diagnosis: Bicuspid calcific aortic stenosis/insufficiency. Past medical history significant for hypertension, hyperlipidemia, COPD, obstructive sleep apnea without home CPAP use, COVID-19 in June 2021, coronary artery disease with history of stent placement to his right coronary artery in 2018, occasional tobacco use smokes an occasional cigar, family history of coronary artery disease with his father having a myocardial infarction, chronic lower back pain and history of pulmonary embolus in which he was on Eliquis for anticoagulation. POD #4 aortic valve replacement with a 25 mm On-X mechanical valve, ligation of the left atrial appendage with a 35 mm Atricure clip, it aortic ultrasonography, patch closure of aortotomy with bovine pericardium area Postoperative acute blood loss anemia, expected given hemodilution and no pulmonary bypass. Postoperative paroxysmal atrial fibrillation, a known, recurrent after cardiac surgery. The patient was seen and examined today 02/04/2022 at his bedside in the intensive care unit. The patient is sitting up to the bedside chair and reports he slept in the chair last night. Denies any complaints of shortness of breath or pain at this time. He does report that during his walk this morning he did have an episode of shortness of breath. Oxygen saturations are 94% on 4 L nasal cannula and he is achieving 7606-0824 mL on his incentive spirometry with encouragement. He was started on Lasix 40 mg IV twice a day yesterday. The patient did have some episodes of paroxysmal atrial fibrillation yesterday and continues on amiodarone by mouth. Currently his bedside telemetry is showing normal sinus rhythm heart rate 87 BPM. The patient's INR yesterday was 1.4 and was given a dose of Coumadin 5 mg by mouth 1 due to his mechanical On-X aortic valve. Today his INR is 7.0. The patient's other labs show a WBC count of 11.1, hemoglobin 10.8, hematocrit 33.2, platelets 180, sodium 132, potassium 3.8, chloride 96, CO2 25, BUN 44, creatinine 1.45, glucose 98, calcium 8.4, AST 61 and ALT 60. He reports he ambulated several times in the hallway of the ICU yesterday with standby assistance from nursing and therapy staff and had his first postoperative shower. He remains hemodynamically stable and is currently on no inotropic pressor support. The Garcia catheter was removed yesterday and he is urinating without difficulty with 650 mL of urine output in the last 8 hours. Due to the patient's INR of 7.0 he will be In the intensive care unit today for further monitoring. Objective - Vital Signs Vital signs: Vital Signs Temp 96.7 F L 02/04/22 08:00 Pulse 87 02/04/22 09:06 Resp 20 02/04/22 09:00 BP 113/85 02/04/22 09:00 Pulse Ox 95 02/04/22 09:06 FiO2 60 02/02/22 23:00 Intake & Output 02/03/22 02/04/22 02/04/22 18:59 06:59 18:59 Intake Total 220 500 100 Output Total 860 1350 250 Balance -640 -850 -150 Weight 117 kg Intake: Oral 220 500 100 Output: Urine 860 1350 250 Other: Voiding Method Toilet Toilet Urinal Urinal # Voids 1 1 1 ABP, PAP, CO, CI - Last Documented Arterial Blood Pressure 102/63 Pulmonary Artery Pressure 27/10 Cardiac Output 5.5 Cardiac Index 2.5 - Exam CONSTITUTIONAL: Sitting up to the bedside chair in the intensive care unit, appears comfortable, cooperative, no apparent acute distress. HEENT: Neck is supple, no JVD, no lymphadenopathy. RESPIRATORY: Lungs sounds essentially clear throughout, diminished to his bilateral bases, few expiratory wheezes and crackles to his bilateral bases. Respirations are symmetrical and nonlabored. Currently on 4 L nasal cannula with oxygen saturations 94%. Able to achieve 1250 mL -1500 mL on his incentive spirometry. Strong cough. CARDIOVASCULAR: Regular rhythm and rate. S1 and S2 present with mechanical valvular click, negative for S3, gallop or murmur. Sternum is stable. Palpable peripheral pulses bilaterally, trace edema to his bilateral lower extremities. No calf pain or tenderness noted. Heart hugger in place with patient demonstrating appropriate use. Knee-high MICHELLE hose and sequential compression devices in place to his bilateral lower extremities. Bedside telemetry showing normal sinus rhythm with heart rate 87 BPM. GASTROINTESTINAL: Abdomen soft, nontender, nondistended. Active bowel sounds present 4 quadrants. Tolerating diet. Passing flatus. No guarding or rigidi ty. GENITOURINARY: Continues to void. Urine output 650 mL in the last 8 hours. INTEGUMENTARY: Skin is warm and dry with no evidence of clubbing or cyanosis. Midline sternal incision clean dry and well approximated, covered with dry intact dressing. NEUROLOGIC: Cranial nerves II through XII intact. No focal deficits. MUSKULOSKELETAL: Able to move all extremities, strength equal bilaterally. PSYCHIATRIC: Alert and oriented to person place and time, appropriate affect, intact judgment and insight. - Allied health notes Allied health notes reviewed: nursing - Labs CBC & Chem 7: 02/04/22 05:27 02/04/22 05:27 Labs: Abnormal Lab Results - Last 24 Hours (Table) 02/03/22 02/03/22 02/03/22 Range/Units 05:40 11:50 16:32 WBC (3.8-10.6) k/uL RBC (4.30-5.90) m/uL Hgb (13.0-17.5) gm/dL Hct (39.0-53.0) % Neutrophils # (1.3-7.7) k/uL PT (9.0-12.0) sec INR (<1.2) Sodium (137-145) mmol/L Chloride (98-107) mmol/L Carbon Dioxide (22-30) mmol/L BUN (9-20) mg/dL Creatinine (0.66-1.25) mg/dL Glucose (74-99) mg/dL POC Glucose (mg/dL) 248 H 123 H (70-110) mg/dL Calcium (8.4-10.2) mg/dL AST (17-59) U/L ALT (4-49) U/L Total Protein (6.3-8.2) g/dL Albumin (3.5-5.0) g/dL Procalcitonin 4.15 H (0.02-0.09) ng/mL 02/03/22 02/03/22 02/04/22 Range/Units 18:09 20:07 05:27 WBC (3.8-10.6) k/uL RBC (4.30-5.90) m/uL Hgb (13.0-17.5) gm/dL Hct (39.0-53.0) % Neutrophils # (1.3-7.7) k/uL PT 70.8 H (9.0-12.0) sec INR 7.0 H* (<1.2) Sodium 131 L (137-145) mmol/L Chloride (98-107) mmol/L Carbon Dioxide 21 L (22-30) mmol/L BUN 44 H (9-20) mg/dL Creatinine 1.49 H (0.66-1.25) mg/dL Glucose 132 H (74-99) mg/dL POC Glucose (mg/dL) 156 H (70-110) mg/dL Calcium 8.2 L (8.4-10.2) mg/dL AST (17-59) U/L ALT (4-49) U/L Total Protein (6.3-8.2) g/dL Albumin 3.1 L (3.5-5.0) g/dL Procalcitonin (0.02-0.09) ng/mL 02/04/22 02/04/22 02/04/22 Range/Units 05:27 05:27 06:33 WBC 11.1 H (3.8-10.6) k/uL RBC 3.75 L (4.30-5.90) m/uL Hgb 10.8 L (13.0-17.5) gm/dL Hct 33.2 L (39.0-53.0) % Neutrophils # 8.1 H (1.3-7.7) k/uL PT (9.0-12.0) sec INR (<1.2) Sodium 132 L (137-145) mmol/L Chloride 96 L (98-107) mmol/L Carbon Dioxide (22-30) mmol/L BUN 44 H (9-20) mg/dL Creatinine 1.45 H (0.66-1.25) mg/dL Glucose (74-99) mg/dL POC Glucose (mg/dL) 139 H (70-110) mg/dL Calcium (8.4-10.2) mg/dL AST 61 H (17-59) U/L ALT 60 H (4-49) U/L Total Protein 5.2 L (6.3-8.2) g/dL Albumin 2.9 L (3.5-5.0) g/dL Procalcitonin (0.02-0.09) ng/mL 02/04/22 Range/Units 08:01 WBC (3.8-10.6) k/uL RBC (4.30-5.90) m/uL Hgb (13.0-17.5) gm/dL Hct (39.0-53.0) % Neutrophils # (1.3-7.7) k/uL PT 87.1 H (9.0-12.0) sec INR 8.5 H* (<1.2) Sodium (137-145) mmol/L Chloride (98-107) mmol/L Carbon Dioxide (22-30) mmol/L BUN (9-20) mg/dL Creatinine (0.66-1.25) mg/dL Glucose (74-99) mg/dL POC Glucose (mg/dL) (70-110) mg/dL Calcium (8.4-10.2) mg/dL AST (17-59) U/L ALT (4-49) U/L Total Protein (6.3-8.2) g/dL Albumin (3.5-5.0) g/dL Procalcitonin (0.02-0.09) ng/mL - Imaging and Cardiology Chest x-ray: report reviewed, image reviewed Assessment and Plan Assessment: 1. Bicuspid calcific aortic stenosis/insufficiency, status post aortic valve replacement with 25 mm On-X mechanical valve 2. Coronary artery disease status post stent placement to his right coronary artery in 2018 3. History of Hypertension 4. History of Hyperlipidemia, on atorvastatin 80 mg by mouth daily at bedtime on an outpatient basis 5. History of pulmonary embolus, was on Eliquis for anticoagulation on an outpatient basis 6. Chronic obstructive pulmonary disease, with a preoperative FEV1 57% of predicted value with a base of 2.01 L 7. Severe symptomatic obstructive sleep apnea, currently does not use CPAP therapy at home 8. Chronic ongoing tobacco dependence, smokes an occasional cigar 9. History of COVID-19 in June 2021 10. Morbid obesity with a BMI of 41.1 kg/m 11. Borderline diabetes mellitus type 2 with a preoperative hemoglobin A1c of 6.4%, diet-controlled 12. Family history of coronary artery disease with his father having a myocardial infarction at age 48 13. Postoperative acute blood loss anemia, expected given hemodilution and cardiopulmonary bypass 14. Acute kidney injury, possibly secondary to hypotension 15. Postoperative paroxysmal atrial fibrillation, a known common occurrence after cardiac surgery Plan: 1. Continue to maximize medical therapy with low-dose aspirin, statin, and beta milton. Will increase metoprolol tartrate as tolerated. 2. Decrease amiodarone to 200 mg by mouth twice a day. 3. Wean oxygen as tolerated. Encourage incentive spirometry 10 times every hour while awake. Bronchodilators per pulmonology/critical care medicine. Continue Symbicort 804 0.5 g 2 puffs twice a day. 4. Increase activity, ambulate as tolerated. PT/OT/cardiac rehab following. 5. Will monitor daily labs and chest x-rays. Electrolyte replacement per protocol. 6. GI and DVT prophylaxis. 7. Pain control with current medication regimen. Avoid nephrotoxic agents. 8. Insulin management per primary care service. Borderline diabetic with a preoperative hemoglobin A1c 6.4%. 9. Continue Mucinex 1200 mg by mouth every 12 hours. 10. Continue to monitor BUN and creatinine. May bladder scan every 6 hours and when necessary post void residual. 11. Continue to record strict accurate intake and output. Daily weights. 12. The importance of risk modification including smoking cessation have been discussed with the patient. Smoking cessation education and counseling was provided, patient was strongly encouraged to quit smoking. 13. Shower daily. 14. No Coumadin today as his INR is 8.5. He was given Coumadin 5 mg by mouth 1 yesterday for an INR of 1.4. Goal INR for first 3 months 2.5-2.8, after 3 months goal INR 1.5-2. Continue to monitor daily PT and INR. 15. Discontinue subcu heparin. 16. Keep in the intensive care unit today for further monitoring due to his INR of 8.5 17. Continue Lasix 40 mg IV twice a day, and potassium chloride 10 mEq by mouth twice a day while on Lasix. 18. More recommendations to follow based on patient's clinical course. Time with Patient: Greater than 30
[2022-02-04] MEDS: INSULIN DETEMIR (LEVEMIR) 100 UNIT/ML SYR SQ SCH (10:29)
[2022-02-04] MEDS: POTASSIUM CHLORIDE ER 10 MEQ TAB.ER.PRT PO SCH ×2 (10:36→20:14)
--- NOTE | 2022-02-04 10:38 | P.PN ---
Subjective Progress Note Date: 02/04/22 Principal diagnosis: Aortic valve replacement. POD #3aortic valve replacement with a 25 mm On-X mechanical valve, ligation of the left atrial appendage with a 35 mm Atricure clip, it aortic ultrasonography, patch closure of aortotomy with bovine pericardium area Patient was reevaluated today on 02/01/22, patient was successfully extubated at 6:15 p.m. last evening. Initially extubated to BiPAP, and he is now on high flow nasal cannula at 15 L/m. Doing fairly well with incentive spirometry achieving about 1000 mL. Patient continues to have some pain from his chest tube, and he continues to have right IJ [place]-Charisma catheter and Cordis in place. He is hemodynamically stable, cardiac output is 5.5 and cardiac index is 2.5 his PA pressure 28/13 and CVP is 14. Remains on amiodarone drip at 0.5 mg/m as per protocol. Chest x-ray showed mostly postoperative changes, and scattered pleural parenchymal opacities reflecting mostly atelectasis. Expected. W scan is 13.7 hemoglobin 8.2, basic metabolic profile is normal creatinine is up to 1.23 today, was 1.06 yesterday. Blood sugars were 35 rest of the metabolic panel is normal Reevaluated today on 02/02/22, remains in the ICU, he is presently on BiPAP with IPAP of 14/6/60% O2 saturation is in the mid 90s. He is on IV fluid to KVO. He is postoperative day #2 doing fairly well, he is relatively asymptomatic, impr oving with his incentive spirometer. Nonetheless his O2 saturation remains marginal on 60% FiO2. Chest x-ray showed postsurgical changes no evidence of active disease noted. Left hemidiaphragm seems to be elevated Reevaluated today on 02/03/22, patient remains in the ICU, sitting up in the bedside chair, awake, alert oriented 3, in no distress. Patient seems to be doing great. However he remains on 15 L high flow nasal cannula and his chest x-ray is showing evidence of interstitial edema hence I'm recommending a dose of Lasix 40 mg IV push today. His bedside telemetry showing atrial fibrillation rate of 93/m, patient is on metoprolol is also on amiodarone orally. He received 2 boluses of amiodarone 150 mg IV piggyback. Overall the patient is doing well otherwise. WBC count 16.8 hemoglobin is 11.5. Electrolytes are normal BUN is 41 and creatinine 1.59 Progress note dated 02/04/2022. Postop day #4, status post aortic valve replacement for aortic stenosis. The patient had a mechanical valve placed. He is currently on 4 L nasal O2. He's not receiving any IV fluids. His INR this morning was 8.5. Coumadin is on hold. White count 11.1, hemoglobin 10.8, normal platelet count. Sodium 132, potassium 3.8, chlorides 96, CO2 25, BUN 44, creatinine 1.45. Chest x-ray shows diffuse bilateral infiltrates, likely related to fluid overload/CHF. Objective - Vital Signs Vital signs: Vital Signs Temp 96.7 F L 02/04/22 08:00 Pulse 86 02/04/22 09:15 Resp 20 02/04/22 09:00 BP 113/85 02/04/22 09:00 Pulse Ox 95 02/04/22 09:06 FiO2 60 02/02/22 23:00 Intake & Output 02/03/22 02/04/22 02/04/22 18:59 06:59 18:59 Intake Total 220 500 100 Output Total 860 1350 675 Balance -640 -850 -575 Weight 117 kg Intake: Oral 220 500 100 Output: Urine 860 1350 675 Other: Voiding Method Toilet Toilet Urinal Urinal # Voids 1 1 1 ABP, PAP, CO, CI - Last Documented Arterial Blood Pressure 102/63 Pulmonary Artery Pressure 27/10 Cardiac Output 5.5 Cardiac Index 2.5 - Exam No acute distress, oriented 3. No respiratory distress. Currently on 4 L of oxygen. HEENT examination is grossly unremarkable. Neck supple. Full range of motion. No adenopathy thyromegaly or neck vein distention. Cardiovascular examination reveals regular rhythm rate. S1-S2 normal. No S3 or S4. No discernible murmur noted. Heart rate 89 bpm. Lungs reveal mostly clear breath sounds. Minimal to moderate scattered rhonchi. No wheezes or crackles. Breath sounds equal bilaterally. Saturations 93%. Abdomen soft bowel sounds are heard. No masses or tenderness. Extremities are intact. No cyanosis clubbing or edema. Skin is without rash or lesion. Neurologic examination is brief but nonfocal. - Labs CBC & Chem 7: 02/04/22 05:27 02/04/22 05:27 Labs: Abnormal Lab Results - Last 24 Hours (Table) 02/03/22 02/03/22 02/03/22 Range/Units 05:40 11:50 16:32 WBC (3.8-10.6) k/uL RBC (4.30-5.90) m/uL Hgb (13.0-17.5) gm/dL Hct (39.0-53.0) % Neutrophils # (1.3-7.7) k/uL PT (9.0-12.0) sec INR (<1.2) Sodium (137-145) mmol/L Chloride (98-107) mmol/L Carbon Dioxide (22-30) mmol/L BUN (9-20) mg/dL Creatinine (0.66-1.25) mg/dL Glucose (74-99) mg/dL POC Glucose (mg/dL) 248 H 123 H (70-110) mg/dL Calcium (8.4-10.2) mg/dL AST (17-59) U/L ALT (4-49) U/L Total Protein (6.3-8.2) g/dL Albumin (3.5-5.0) g/dL Procalcitonin 4.15 H (0.02-0.09) ng/mL 02/03/22 02/03/22 02/04/22 Range/Units 18:09 20:07 05:27 WBC (3.8-10.6) k/uL RBC (4.30-5.90) m/uL Hgb (13.0-17.5) gm/dL Hct (39.0-53.0) % Neutrophils # (1.3-7.7) k/uL PT 70.8 H (9.0-12.0) sec INR 7.0 H* (<1.2) Sodium 131 L (137-145) mmol/L Chloride (98-107) mmol/L Carbon Dioxide 21 L (22-30) mmol/L BUN 44 H (9-20) mg/dL Creatinine 1.49 H (0.66-1.25) mg/dL Glucose 132 H (74-99) mg/dL POC Glucose (mg/dL) 156 H (70-110) mg/dL Calcium 8.2 L (8.4-10.2) mg/dL AST (17-59) U/L ALT (4-49) U/L Total Protein (6.3-8.2) g/dL Albumin 3.1 L (3.5-5.0) g/dL Procalcitonin (0.02-0.09) ng/mL 02/04/22 02/04/22 02/04/22 Range/Units 05:27 05:27 06:33 WBC 11.1 H (3.8-10.6) k/uL RBC 3.75 L (4.30-5.90) m/uL Hgb 10.8 L (13.0-17.5) gm/dL Hct 33.2 L (39.0-53.0) % Neutrophils # 8.1 H (1.3-7.7) k/uL PT (9.0-12.0) sec INR (<1.2) Sodium 132 L (137-145) mmol/L Chloride 96 L (98-107) mmol/L Carbon Dioxide (22-30) mmol/L BUN 44 H (9-20) mg/dL Creatinine 1.45 H (0.66-1.25) mg/dL Glucose (74-99) mg/dL POC Glucose (mg/dL) 139 H (70-110) mg/dL Calcium (8.4-10.2) mg/dL AST 61 H (17-59) U/L ALT 60 H (4-49) U/L Total Protein 5.2 L (6.3-8.2) g/dL Albumin 2.9 L (3.5-5.0) g/dL Procalcitonin (0.02-0.09) ng/mL 02/04/22 Range/Units 08:01 WBC (3.8-10.6) k/uL RBC (4.30-5.90) m/uL Hgb (13.0-17.5) gm/dL Hct (39.0-53.0) % Neutrophils # (1.3-7.7) k/uL PT 87.1 H (9.0-12.0) sec INR 8.5 H* (<1.2) Sodium (137-145) mmol/L Chloride (98-107) mmol/L Carbon Dioxide (22-30) mmol/L BUN (9-20) mg/dL Creatinine (0.66-1.25) mg/dL Glucose (74-99) mg/dL POC Glucose (mg/dL) (70-110) mg/dL Calcium (8.4-10.2) mg/dL AST (17-59) U/L ALT (4-49) U/L Total Protein (6.3-8.2) g/dL Albumin (3.5-5.0) g/dL Procalcitonin (0.02-0.09) ng/mL Assessment and Plan Assessment: Postop day #4, status post aortic valve replacement, with mechanical valve, for aortic stenosis. Bicuspid aortic valve, aortic stenosis/insufficiency. Hypertension. History of pulmonary embolism. 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 Severe obstructive sleep apnea syndrome, with an apnea/hypoxia index of 60. Obesity. History of coronavirus infection, June 2021. Type 2 diabetes mellitus. Family history of CAD. Plan: Plan dated 02/04/2022. The patient continues to do well. He continues with deep breathing, coughing, clearing of secretions. The patient also continues to use the incentive spirometer, every hour. The patient's INR this morning was 8.5. Either they will hold Coumadin, give the patient some fresh frozen plasma. The patient did not use BiPAP last night. The patient continues on amiodarone. Prognosis is guarded. We will continue to follow and make recommendations along the way. Time with Patient: Less than 30
[2022-02-04 11:17] LABS: Glucose,Whole Blood 129 mg/dL (70-110)
[2022-02-04] MEDS: ACETAMINOPHEN TAB 325 MG TAB PO PRN ×2 (11:22→18:17)
--- NOTE | 2022-02-04 12:56 | P.PN ---
Subjective Progress Note Date: 02/04/22 - History of Present Illness 02/01/22 This is a 51-year-old gentleman with past medical history of CAD, [place], stenting of RCA ,PE on Eliquis, COPD, obstructive sleep apnea ,diabetes mellitus, gastroesophageal reflux disease, hypertension, hyperlipidemia, nicotine dependence, morbid obesity, Covid June 2021-continued to have progressive exertional shortness of breath, YASH reported normal LV function, moderate aortic stenosis with [id number] aortic regurgitation involving heavily calcified bicuspid aortic valve. Patient is status post Bicuspid calcified aortic stenosi s/insufficiency status post AVR, ligation of left atrial appendage, postop day #1, tolerated procedure well. Extubated last night and currently maintaining O2 sats in the 90s on 15 L high flow nasal cannula. Incentive spirometer 7-800. Complains of chest tube discomfort. Chest x-ray reporting postop changes, scattered pleural progression multiple PACs, most likely atelectasis. Afebrile, WBC 11.4, hemoglobin 12.4, platelets 164 creatinine increased to 1.23, blood sugars controlled on insulin drip. CO/CI 5.5/2.5. Transitioned to oral amiodarone. Telemetry sinus rhythm. 02/04/2022 diuresing well on IV push Lasix with 24-hour I&O reflecting a negative fluid balance, weight down 1.7 kg. sitting up in chair, reports pain better controlled. Minimal exertional shortness of breath, slept in the chair last night. Requiring 4 L nasal cannula O2 to maintain O2 sats in the 90s. Chest x-ray reporting multifocal airspace opacity's, suggestive of pulmonary edema, not significantly changed from prior.Creatinine 1.45. Blood sugars controlled. Sodium 132. INR elevated,7, repeated level 8.5. anticoagulated on Coumadin for mechanical aortic valve,continues on amiodarone for paroximal A. fi b, currently sinus rhythm. Afebrile, WBC 11.1. Objective - Vital Signs Vital signs: Vital Signs Temp 96.7 F L 02/04/22 08:00 Pulse 89 02/04/22 10:00 Resp 18 02/04/22 10:00 BP 111/70 02/04/22 10:00 Pulse Ox 93 L 02/04/22 10:00 FiO2 60 02/02/22 23:00 Intake & Output 02/03/22 02/04/22 02/04/22 18:59 06:59 18:59 Intake Total 220 500 100 Output Total 860 1350 1075 Balance -889 -956 -403 Weight 117 kg Intake: Oral 220 500 100 Output: Urine 860 1350 1075 Other: Voiding Method Toilet Toilet Urinal Urinal # Voids 1 1 1 ABP, PAP, CO, CI - Last Documented Arterial Blood Pressure 102/63 Pulmonary Artery Pressure 27/10 Cardiac Output 5.5 Cardiac Index 2.5 - Exam PHYSICAL EXAM: VITAL SIGNS: [As above] GENERAL: Sitting up in chair, no acute distress HEENT: Conjunctivae normal. eyes normal. MMM. NECK: Supple, No JVD. No thyroid enlargement. No LNs CARDIOVASCULAR: S1, S2 regular. mechanical click, wearing heart hugger. RESPIRATION: Equal air entry, Breath sounds diminished in the bases. ABDOMEN: Soft, nontender . No guarding. no masses palpable.+BS LEGS: No edema. no swelling PSYCHIATRY: Alert and oriented X3, mood and affect normal. NERVOUS SYSTEM: Cranial N 2-12 grossly normal. Moves all 4 limbs.No focal deficits. Strength and sensation grossly intact. Skin: Warm and dry, no rash - Labs CBC & Chem 7: 02/04/22 05:27 02/04/22 05:27 Labs: Abnormal Lab Results - Last 24 Hours (Table) 02/03/22 02/03/22 02/03/22 Range/Units 05:40 16:32 18:09 WBC (3.8-10.6) k/uL RBC (4.30-5.90) m/uL Hgb (13.0-17.5) gm/dL Hct (39.0-53.0) % Neutrophils # (1.3-7.7) k/uL PT (9.0-12.0) sec INR (<1.2) Sodium 131 L (137-145) mmol/L Chloride (98-107) mmol/L Carbon Dioxide 21 L (22-30) mmol/L BUN 44 H (9-20) mg/dL Creatinine 1.49 H (0.66-1.25) mg/dL Glucose 132 H (74-99) mg/dL POC Glucose (mg/dL) 123 H (70-110) mg/dL Calcium 8.2 L (8.4-10.2) mg/dL AST (17-59) U/L ALT (4-49) U/L Total Protein (6.3-8.2) g/dL Albumin 3.1 L (3.5-5.0) g/dL Procalcitonin 4.15 H (0.02-0.09) ng/mL 02/03/22 02/04/22 02/04/22 Range/Units 20:07 05:27 05:27 WBC 11.1 H (3.8-10.6) k/uL RBC 3.75 L (4.30-5.90) m/uL Hgb 10.8 L (13.0-17.5) gm/dL Hct 33.2 L (39.0-53.0) % Neutrophils # 8.1 H (1.3-7.7) k/uL PT 70.8 H (9.0-12.0) sec INR 7.0 H* (<1.2) Sodium (137-145) mmol/L Chloride (98-107) mmol/L Carbon Dioxide (22-30) mmol/L BUN (9-20) mg/dL Creatinine (0.66-1.25) mg/dL Glucose (74-99) mg/dL POC Glucose (mg/dL) 156 H (70-110) mg/dL Calcium (8.4-10.2) mg/dL AST (17-59) U/L ALT (4-49) U/L Total Protein (6.3-8.2) g/dL Albumin (3.5-5.0) g/dL Procalcitonin (0.02-0.09) ng/mL 02/04/22 02/04/22 02/04/22 Range/Units 05:27 06:33 08:01 WBC (3.8-10.6) k/uL RBC (4.30-5.90) m/uL Hgb (13.0-17.5) gm/dL Hct (39.0-53.0) % Neutrophils # (1.3-7.7) k/uL PT 87.1 H (9.0-12.0) sec INR 8.5 H* (<1.2) Sodium 132 L (137-145) mmol/L Chloride 96 L (98-107) mmol/L Carbon Dioxide (22-30) mmol/L BUN 44 H (9-20) mg/dL Creatinine 1.45 H (0.66-1.25) mg/dL Glucose (74-99) mg/dL POC Glucose (mg/dL) 139 H (70-110) mg/dL Calcium (8.4-10.2) mg/dL AST 61 H (17-59) U/L ALT 60 H (4-49) U/L Total Protein 5.2 L (6.3-8.2) g/dL Albumin 2.9 L (3.5-5.0) g/dL Procalcitonin (0.02-0.09) ng/mL 02/04/22 Range/Units 11:16 WBC (3.8-10.6) k/uL RBC (4.30-5.90) m/uL Hgb (13.0-17.5) gm/dL Hct (39.0-53.0) % Neutrophils # (1.3-7.7) k/uL PT (9.0-12.0) sec INR (<1.2) Sodium (137-145) mmol/L Chloride (98-107) mmol/L Carbon Dioxide (22-30) mmol/L BUN (9-20) mg/dL Creatinine (0.66-1.25) mg/dL Glucose (74-99) mg/dL POC Glucose (mg/dL) 129 H (70-110) mg/dL Calcium (8.4-10.2) mg/dL AST (17-59) U/L ALT (4-49) U/L Total Protein (6.3-8.2) g/dL Albumin (3.5-5.0) g/dL Procalcitonin (0.02-0.09) ng/mL Assessment and Plan Assessment: Symptomatic Bicuspid calcified aortic stenosis and insufficiency status post AVR with mechanical valve, ligation of left atrial appendage Acute Hypoxic respiratory failure,post extubation, requiring 15 L high flow nasal cannula, improving, currently down to 4 L NC Atelactasis, postoperative, expected Postoperative paroxysmal atrial fibrillation, postop, expected outcome Hypercoagulopathy, on Coumadin, postop CAD, history of [place], stents History of COVID June 2021 COPD Obstructive sleep apnea, Diabetes mellitus hemoglobin A1c 6.4 Gastroesophageal reflux disease Hypertension Hyperlipidemia Nicotine dependence Morbid obesity, BMI 41.1 Plan: Continue on current medication regime ,monitoring and symptomatic treatment. Coumadin on hold today, close monintoring of PT/INR.Aggressive pulmonary toileting with nebulized bronchodilators, incentive spirometer reinforced. Increase ambulation as tolerated. Blood sugars controlled, continue close monitoring of Accu-Cheks. The impression and plan of care has been dictated as directed. : I performed a history and examination of this patient, discussed the same with the dictator. I agree with the dictator's note ,documented as a scribe. Any additional findings or plans will be noted.
[2022-02-04 16:26] LABS: Glucose,Whole Blood 135 mg/dL (70-110)
[2022-02-04 20:06] LABS: Glucose,Whole Blood 119 mg/dL (70-110)
[2022-02-04] MEDS: SENNOSIDES-DOCUSATE SODIUM 1 EACH TAB PO SCH (20:14)
[2022-02-04] MEDS: ATORVASTATIN 80 MG TAB PO SCH (20:14)
[2022-02-04] MEDS: bisacodyL 10 MG SUPP RECTAL PRN (20:29)
[2022-02-04 20:58] LABS: Glucose,Whole Blood 129 mg/dL (70-110)
[2022-02-04] MEDS: MELATONIN 3 MG TABLET PO SCH (21:20)
[2022-02-05] MEDS ORDERED: DEXTROSE 5% IN WATER 100 ML with AMIODARONE 150 MG IV ONE (00:03)
[2022-02-05] MEDS ORDERED: FUROSEMIDE 10 MG/ML 2 ML VIAL IV ONE (00:03)
[2022-02-05] MEDS: ACETAMINOPHEN TAB 325 MG TAB PO PRN ×2 (02:32→16:14)
[2022-02-05] MEDS: bisacodyL 10 MG SUPP RECTAL PRN (06:26)
[2022-02-05] MEDS: INSULIN ASPART (NovoLOG) 100 UNIT/ML VIAL SQ SCH ×4 (06:34→20:05)
[2022-02-05 06:35] LABS: Glucose,Whole Blood 129 mg/dL (70-110)
[2022-02-05 06:51] LABS: Basophils % (A) 0 %; Eosinophils # (A) 0.2 k/uL (0-0.7); Eosinophils % (A) 2 %; HCT 32.5 % (39.0-53.0); HGB 10.8 gm/dL (13.0-17.5); Lymphocytes % (A) 22 %; MCH 28.9 pg (25.0-35.0); MCHC 33.1 g/dL (31.0-37.0); MCV 87.6 fL (80.0-100.0); Mean Platelet Volume 8.8; Monocytes # (A) 0.8 k/uL (0-1.0); Monocytes % (A) 8 %; Neutrophils # (A) 6.1 k/uL (1.3-7.7); Neutrophils % (A) 66 %; Platelet Count 205 k/uL (150-450); RBC 3.71 m/uL (4.30-5.90); RDW 14.1 % (11.5-15.5); WBC 9.2 k/uL (3.8-10.6)
--- NOTE | 2022-02-05 06:52 | P.PN ---
Subjective Progress Note Date: 02/05/22 Principal diagnosis: Aortic valve replacement. POD #3aortic valve replacement with a 25 mm On-X mechanical valve, ligation of the left atrial appendage with a 35 mm Atricure clip, it aortic ultrasonography, patch closure of aortotomy with bovine pericardium area Patient was reevaluated today on 02/01/22, patient was successfully extubated at 6:15 p.m. last evening. Initially extubated to BiPAP, and he is now on high flow nasal cannula at 15 L/m. Doing fairly well with incentive spirometry achieving about 1000 mL. Patient continues to have some pain from his chest tube, and he continues to have right IJ [place]-Charisma catheter and Cordis in place. He is hemodynamically stable, cardiac output is 5.5 and cardiac index is 2.5 his PA pressure 28/13 and CVP is 14. Remains on amiodarone drip at 0.5 mg/m as per protocol. Chest x-ray showed mostly postoperative changes, and scattered pleural parenchymal opacities reflecting mostly atelectasis. Expected. W scan is 13.7 hemoglobin 8.2, basic metabolic profile is normal creatinine is up to 1.23 today, was 1.06 yesterday. Blood sugars were 35 rest of the metabolic panel is normal Reevaluated today on 02/02/22, remains in the ICU, he is presently on BiPAP with IPAP of 14/6/60% O2 saturation is in the mid 90s. He is on IV fluid to KVO. He is postoperative day #2 doing fairly well, he is relatively asymptomatic, impr oving with his incentive spirometer. Nonetheless his O2 saturation remains marginal on 60% FiO2. Chest x-ray showed postsurgical changes no evidence of active disease noted. Left hemidiaphragm seems to be elevated Reevaluated today on 02/03/22, patient remains in the ICU, sitting up in the bedside chair, awake, alert oriented 3, in no distress. Patient seems to be doing great. However he remains on 15 L high flow nasal cannula and his chest x-ray is showing evidence of interstitial edema hence I'm recommending a dose of Lasix 40 mg IV push today. His bedside telemetry showing atrial fibrillation rate of 93/m, patient is on metoprolol is also on amiodarone orally. He received 2 boluses of amiodarone 150 mg IV piggyback. Overall the patient is doing well otherwise. WBC count 16.8 hemoglobin is 11.5. Electrolytes are normal BUN is 41 and creatinine 1.59 Progress note dated 02/04/2022. Postop day #4, status post aortic valve replacement for aortic stenosis. The patient had a mechanical valve placed. He is currently on 4 L nasal O2. He's not receiving any IV fluids. His INR this morning was 8.5. Coumadin is on hold. White count 11.1, hemoglobin 10.8, normal platelet count. Sodium 132, potassium 3.8, chlorides 96, CO2 25, BUN 44, creatinine 1.45. Chest x-ray shows diffuse bilateral infiltrates, likely related to fluid overload/CHF. Progress note dated 02/05/2022. Postop day #5, status post aortic valve replacement for aortic stenosis. The patient is again seen in the intensive care unit, room 265. Currently, he's on 3 L nasal cannula. He did have some atrial fibrillation last night, and was given some amiodarone. He's not receiving any IV fluids. He seems to be relatively stable this morning. Morning labs are currently pending. Morning chest x-ray is currently pending as well. Objective - Vital Signs Vital signs: Vital Signs Temp 98.3 F 02/05/22 04:00 Pulse 118 H 02/05/22 06:08 Resp 23 02/05/22 06:08 BP 129/91 02/05/22 06:08 Pulse Ox 96 02/05/22 06:08 FiO2 60 02/02/22 23:00 Intake & Output 02/04/22 02/04/22 02/05/22 06:59 18:59 06:59 Intake Total 500 994 540 Output Total 1350 1725 2375 Balance -407 -845 -2339 Weight 117 kg 116 kg Intake: Oral 500 994 540 Output: Urine 1350 1725 2375 Other: Voiding Method Toilet Urinal Urinal Urinal # Voids 1 1 1 ABP, PAP, CO, CI - Last Documented Arterial Blood Pressure 102/63 Pulmonary Artery Pressure 27/10 Cardiac Output 5.5 Cardiac Index 2.5 - Exam No acute distress, oriented 3. No respiratory distress. Currently on 3 L of oxygen. HEENT examination is grossly unremarkable. Neck supple. Full range of motion. No adenopathy thyromegaly or neck vein distention. Cardiovascular examination reveals an irregular rhythm and rate. S1-S2 normal. No S3 or S4. No discernible murmur noted. Heart rate 100 bpm. Lungs reveal mostly clear breath sounds. Minimal to moderate scattered rhonchi. No wheezes or crackles. Breath sounds equal bilaterally. Saturations 96 %. Abdomen soft bowel sounds are heard. No masses or tenderness. Extremities are intact. No cyanosis clubbing or edema. Skin is without rash or lesion. Neurologic examination is brief but nonfocal. - Labs CBC & Chem 7: 02/04/22 05:27 02/04/22 05:27 Labs: Abnormal Lab Results - Last 24 Hours (Table) 02/04/22 02/04/22 02/04/22 Range/Units 08:01 11:16 16:23 PT 87.1 H (9.0-12.0) sec INR 8.5 H* (<1.2) POC Glucose (mg/dL) 129 H 135 H (70-110) mg/dL 02/04/22 02/04/22 02/05/22 Range/Units 20:05 20:56 06:33 PT (9.0-12.0) sec INR (<1.2) POC Glucose (mg/dL) 119 H 129 H 129 H (70-110) mg/dL Assessment and Plan Assessment: Postop day #5, status post aortic valve replacement, with mechanical valve, for aortic stenosis. Bicuspid aortic valve, with aortic stenosis/insufficiency. Postoperative atrial fibrillation. Hypertension. History of pulmonary embolism. 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 Severe obstructive sleep apnea syndrome, with an apnea/hypoxia index of 60. Obesity. History of coronavirus infection, June 2021. Type 2 diabetes mellitus. Family history of CAD. Plan: Plan dated 02/04/2022. The patient continues to do well. He continues with deep breathing, coughing, clearing of secretions. The patient also continues to use the incentive spirometer, every hour. The patient's INR this morning was 8.5. Either they will hold Coumadin, give the patient some fresh frozen plasma. The patient did not use BiPAP last night. The patient continues on amiodarone. Prognosis is guarded. We will continue to follow and make recommendations along the way. Plan dated 02/05/2022. The patient did develop some atrial fibrillation last night. He was given amiodarone. He is currently still in atrial fibrillation with a rate of about 100 bpm. His oxygen is at 3 L/m. His respiratory status appears stable. Morning labs in morning chest x-ray currently pending. We will continue to follow make recommendations were appropriate. We do recommend the patient continue to deep breathe, cough, and clear secretions, and use his incentive spirometer, hourly. Time with Patient: Less than 30
--- NOTE | 2022-02-05 06:53 | XR ---
EXAMINATION TYPE: XR chest 2V DATE OF EXAM: 02/05/2022 6:03 AM COMPARISON: Chest radiographs from 02/04/2022. TECHNIQUE: XR chest 2V Frontal and lateral views of the chest. CLINICAL INDICATION:Male, 51 years old with history of post op AVR; FINDINGS: Lungs/Pleura: There is no evidence of pleural effusion or pneumothorax. Improved multifocal intersti tial opacities. Heart/mediastinum: Cardiomediastinal silhouette is enlarged and stable. Postsurgical changes from ao rtic valve repair and left atrial appendage occlusion device. Musculoskeletal: No acute osseous pathology. Midline sternotomy wires are noted and stable. IMPRESSION: Improvement in bilateral interstitial opacities from prior examination.
--- NOTE | 2022-02-05 07:02 | P.PN ---
Subjective Progress Note Date: 02/05/22 Principal diagnosis: Status post aortic valve replacement The patient is a 51-year-old gentleman who underwent recently an aortic valve replacement for severe aortic stenosis/aortic regurgitation and also he is known to have coronary artery disease with prior RCA stenting as well as borderline diabetes as well as chronic kidney disease. The patient was admitted to the hospital with volume overload. He presented with increasing shortness of breath but no symptoms of chest pain or chest discomfort. The patient was seen this morning he is back in atrial fibrillation with overall controlled heart rate. He was given amiodarone IV. Currently he is on amiodarone by mouth as well as beta milton. Clinically he continues to be in fluid overload. Definitely he is better on examination was less wheezing and less crackles. I will suggest continue IV Lasix for additional 24 hours. Reassess the kidney function and electrolytes tomorrow. Reassess the clinical situation tomorrow as well. Beside that I would advise increasing the dose of metoprolol to 25 mg by mouth 3 times a day. If he remains in atrial fibrillation more than 48 hours need to be on oral anticoagulation Objective - Vital Signs Vital signs: Vital Signs Temp 98.3 F 02/05/22 04:00 Pulse 118 H 02/05/22 06:08 Resp 23 02/05/22 06:08 BP 129/91 02/05/22 06:08 Pulse Ox 96 02/05/22 06:08 FiO2 60 02/02/22 23:00 Intake & Output 02/04/22 02/05/22 02/05/22 18:59 06:59 18:59 Intake Total 994 540 Output Total 1725 2375 Balance -731 -1835 Weight 116 kg Intake: Oral 994 540 Output: Urine 1725 2375 Other: Voiding Method Urinal Urinal # Voids 1 1 ABP, PAP, CO, CI - Last Documented Arterial Blood Pressure 102/63 Pulmonary Artery Pressure 27/10 Cardiac Output 5.5 Cardiac Index 2.5 - Constitutional General appearance: Present: no acute distress - Respiratory Respiratory: bilateral: rales - Cardiovascular Rhythm: irregularly irregular - Labs CBC & Chem 7: 02/05/22 05:45 02/04/22 05:27 Labs: Abnormal Lab Results - Last 24 Hours (Table) 02/04/22 02/04/22 02/04/22 Range/Units 08:01 11:16 16:23 RBC (4.30-5.90) m/uL Hgb (13.0-17.5) gm/dL Hct (39.0-53.0) % PT 87.1 H (9.0-12.0) sec INR 8.5 H* (<1.2) POC Glucose (mg/dL) 129 H 135 H (70-110) mg/dL 02/04/22 02/04/22 02/05/22 Range/Units 20:05 20:56 05:45 RBC 3.71 L (4.30-5.90) m/uL Hgb 10.8 L (13.0-17.5) gm/dL Hct 32.5 L (39.0-53.0) % PT (9.0-12.0) sec INR (<1.2) POC Glucose (mg/dL) 119 H 129 H (70-110) mg/dL 02/05/22 Range/Units 06:33 RBC (4.30-5.90) m/uL Hgb (13.0-17.5) gm/dL Hct (39.0-53.0) % PT (9.0-12.0) sec INR (<1.2) POC Glucose (mg/dL) 129 H (70-110) mg/dL Assessment and Plan Assessment: Assessment #1 status post aortic valve replacement using mechanical valve #2 CAD with prior stenting of the RCA #3 fluid overload secondary to heart failure with preserved ejection fraction #4 chronic renal disease #5 paroxysmal atrial fibrillation Plan #1 I would suggest continue the current dose of Lasix IV as #2 I'll suggest increasing the dose of metoprolol as well #3 continue monitor the kidney function and electrolytes #4 follow-up with the patient
[2022-02-05 07:07] LABS: Calcium 7.7 mg/dL (8.4-10.2); Magnesium 2.2 mg/dL (1.6-2.3); Potassium 3.6 mmol/L (3.5-5.1); Total Bilirubin 0.5 mg/dL (0.2-1.3); Total Protein 5.3 g/dL (6.3-8.2)
[2022-02-05 07:30] LABS: Prothrombin Time 107.5 sec (9.0-12.0)
[2022-02-05] MEDS ORDERED: POTASSIUM CHLORIDE ER 20 MEQ TAB.ER PO ONE ×2 (07:30→13:30)
[2022-02-05] MEDS: PANTOPRAZOLE 40 MG TABLET PO SCH (07:45)
[2022-02-05] MEDS: ASPIRIN 81 MG PO SCH (07:46)
[2022-02-05] MEDS: POTASSIUM CHLORIDE ER 10 MEQ TAB.ER.PRT PO SCH (07:46)
[2022-02-05] MEDS: ONDANSETRON 4 MG/2 ML VIAL IVP PRN (07:47)
[2022-02-05] MEDS: FUROSEMIDE 10 MG/ML 4 ML VIAL IV SCH ×2 (07:47→21:02)
[2022-02-05] MEDS: AMIODARONE 200 MG TAB PO SCH ×2 (07:47→21:01)
[2022-02-05 07:56] LABS: INR >10.0 (<1.2)
[2022-02-05] MEDS: INSULIN DETEMIR (LEVEMIR) 100 UNIT/ML SYR SQ SCH (08:13)
[2022-02-05] MEDS: IPRATROPIUM-ALBUTEROL 3 ML NEB INHALATION SCH ×4 (08:22→19:46)
[2022-02-05] MEDS: SYMBICORT 80-4.5 MCG INHALER INHALATION SCH ×2 (08:25→20:01)
[2022-02-05] MEDS ORDERED: METOPROLOL TARTRATE 25 MG TAB PO SCH (09:00)
[2022-02-05] MEDS ORDERED: PHYTONADIONE 2 MG in SODIUM CHLORIDE 0.9% 50 ML IVPB STA (10:53)
[2022-02-05 11:31] LABS: Glucose,Whole Blood 123 mg/dL (70-110)
--- NOTE | 2022-02-05 12:00 | P.PN ---
Subjective Progress Note Date: 02/05/22 - History of Present Illness 02/01/22 This is a 51-year-old gentleman with past medical history of CAD, [place], stenting of RCA ,PE on Eliquis, COPD, obstructive sleep apnea ,diabetes mellitus, gastroesophageal reflux disease, hypertension, hyperlipidemia, nicotine dependence, morbid obesity, Covid June 2021-continued to have progressive exertional shortness of breath, YASH reported normal LV function, moderate aortic stenosis with [id number] aortic regurgitation involving heavily calcified bicuspid aortic valve. Patient is status post Bicuspid calcified aortic stenosi s/insufficiency status post AVR, ligation of left atrial appendage, postop day #1, tolerated procedure well. Extubated last night and currently maintaining O2 sats in the 90s on 15 L high flow nasal cannula. Incentive spirometer 7-800. Complains of chest tube discomfort. Chest x-ray reporting postop changes, scattered pleural progression multiple PACs, most likely atelectasis. Afebrile, WBC 11.4, hemoglobin 12.4, platelets 164 creatinine increased to 1.23, blood sugars controlled on insulin drip. CO/CI 5.5/2.5. Transitioned to oral amiodarone. Telemetry sinus rhythm. 02/04/2022 diuresing well on IV push Lasix with 24-hour I&O reflecting a negative fluid balance, weight down 1.7 kg. sitting up in chair, reports pain better controlled. Minimal exertional shortness of breath, slept in the chair last night. Requiring 4 L nasal cannula O2 to maintain O2 sats in the 90s. Chest x-ray reporting multifocal airspace opacity's, suggestive of pulmonary edema, not significantly changed from prior.Creatinine 1.45. Blood sugars controlled. Sodium 132. INR elevated,7, repeated level 8.5. anticoagulated on Coumadin for mechanical aortic valve,continues on amiodarone for paroximal A. fi b, currently sinus rhythm. Afebrile, WBC 11.1. 02/05/2022 diuresing well, on Lasix IV push with 24-hour I&O reflecting a negative fluid balance, oxygen further weaned down to 2 L nasal cannula. Re ports IS up to 2000. Chest x-ray reporting improvement in bilateral interstitial opacity's from prior exam.Tachycardia, telemetry atrial fibrillation, received amiodarone in addition to beta milton. INR greater than 10, vitamin K ,platelets ordered as per cardiothoracic surgery. Tbili 0.5, AST 53, ALT 54, alk phos 77, Renal function improving. Diet intake 25% this am. Denies nausea or vomiting. Reports positive bowel movement this morning. Denies chills or sweats. Objective - Vital Signs Vital signs: Vital Signs Temp 98.2 F 02/05/22 08:00 Pulse 114 H 02/05/22 11:35 Resp 23 02/05/22 11:05 BP 96/72 02/05/22 11:05 Pulse Ox 93 L 02/05/22 11:05 FiO2 60 02/02/22 23:00 Intake & Output 02/04/22 02/05/22 02/05/22 18:59 06:59 18:59 Intake Total 994 540 50 Output Total 1725 2375 675 Balance -731 -1835 -634 Weight 116 kg Intake: IV 50 Phytonadione 2 mg In 50 Sodium Chloride 0.9% 50 ml @ 100 mls/hr IVPB ONCE STA Rx#:[id number] Oral 994 540 Output: Urine 1725 2375 675 Other: Voiding Method Urinal Urinal Urinal # Voids 1 1 # Bowel Movements 1 ABP, PAP, CO, CI - Last Documented Arterial Blood Pressure 102/63 Pulmonary Artery Pressure 27/10 Cardiac Output 5.5 Cardiac Index 2.5 - Exam PHYSICAL EXAM: VITAL SIGNS: [As above] GENERAL: Sitting up in chair, no acute distress HEENT: Conjunctivae normal. eyes normal. MMM. NECK: Supple, No JVD. No thyroid enlargement. No LNs CARDIOVASCULAR: S1, S2 regular. mechanical click, wearing heart hugger. RESPIRATION: Equal air entry, bilateral bases diminished. ABDOMEN: Soft, nontender . No guarding. no masses palpable.+BS LEGS: No edema. no swelling PSYCHIATRY: Alert and oriented X3, mood and affect normal. NERVOUS SYSTEM: Cranial N 2-12 grossly normal.No focal deficits.Strength and sensation grossly intact. Skin: Warm and dry, no rash - Labs CBC & Chem 7: 02/05/22 05:45 02/05/22 05:45 Labs: Abnormal Lab Results - Last 24 Hours (Table) 02/04/22 02/04/22 02/04/22 Range/Units 16:23 20:05 20:56 RBC (4.30-5.90) m/uL Hgb (13.0-17.5) gm/dL Hct (39.0-53.0) % PT (9.0-12.0) sec INR (<1.2) Sodium (137-145) mmol/L Chloride (98-107) mmol/L BUN (9-20) mg/dL Glucose (74-99) mg/dL POC Glucose (mg/dL) 135 H 119 H 129 H (70-110) mg/dL Calcium (8.4-10.2) mg/dL ALT (4-49) U/L Total Protein (6.3-8.2) g/dL Albumin (3.5-5.0) g/dL 02/05/22 02/05/22 02/05/22 Range/Units 05:45 05:45 05:45 RBC 3.71 L (4.30-5.90) m/uL Hgb 10.8 L (13.0-17.5) gm/dL Hct 32.5 L (39.0-53.0) % PT 107.5 H (9.0-12.0) sec INR >10.0 H* (<1.2) Sodium 132 L (137-145) mmol/L Chloride 94 L (98-107) mmol/L BUN 37 H (9-20) mg/dL Glucose 115 H (74-99) mg/dL POC Glucose (mg/dL) (70-110) mg/dL Calcium 7.7 L (8.4-10.2) mg/dL ALT 54 H (4-49) U/L Total Protein 5.3 L (6.3-8.2) g/dL Albumin 3.0 L (3.5-5.0) g/dL 02/05/22 02/05/22 Range/Units 06:33 11:31 RBC (4.30-5.90) m/uL Hgb (13.0-17.5) gm/dL Hct (39.0-53.0) % PT (9.0-12.0) sec INR (<1.2) Sodium (137-145) mmol/L Chloride (98-107) mmol/L BUN (9-20) mg/dL Glucose (74-99) mg/dL POC Glucose (mg/dL) 129 H 123 H (70-110) mg/dL Calcium (8.4-10.2) mg/dL ALT (4-49) U/L Total Protein (6.3-8.2) g/dL Albumin (3.5-5.0) g/dL Assessment and Plan Assessment: Symptomatic Bicuspid calcified aortic stenosis and insufficiency status post AVR with mechanical valve, ligation of left atrial appendage Acute Hypoxic respiratory failure,post extubation, requiring 15 L high flow nasal cannula, improving, currently down to 4 L NC Atelactasis, postoperative, expected Postoperative paroxysmal atrial fibrillation, postop, expected outcome Hypercoagulopathy, on Coumadin, postop CAD, history of [place], stents History of COVID June 2021 COPD Obstructive sleep apnea, Diabetes mellitus hemoglobin A1c 6.4 Gastroesophageal reflux disease Hypertension Hyperlipidemia Nicotine dependence Morbid obesity, BMI 41.1 Plan: Continue on current medication regime ,monitoring and symptomatic treatment. Anticoagulation on hold, receiving platelets and vitamin K as per CTS. Close monintoring of PT/INR.Maintain aggressive pulmonary toileting with nebulized bronchodilators, incentive spirometer reinforced. Blood sugars controlled, continue close monitoring of Accu-Cheks. The impression and plan of care has been dictated as directed. : I performed a history and examination of this patient, discussed the same with the dictator. I agree with the dictator's note ,documented as a scribe. Any additional findings or plans will be noted.
[2022-02-05] MEDS ORDERED: METOPROLOL TARTRATE 25 MG TAB PO STA (13:00)
[2022-02-05 16:45] LABS: Glucose,Whole Blood 153 mg/dL (70-110)
[2022-02-05 19:56] LABS: Glucose,Whole Blood 129 mg/dL (70-110)
[2022-02-05] MEDS: SENNOSIDES-DOCUSATE SODIUM 1 EACH TAB PO SCH (20:59)
[2022-02-05] MEDS: MELATONIN 3 MG TABLET PO SCH (20:59)
[2022-02-05] MEDS: ATORVASTATIN 80 MG TAB PO SCH (21:00)
[2022-02-05] MEDS: METOPROLOL TARTRATE 50 MG TAB PO SCH (21:00)
[2022-02-05] MEDS: POTASSIUM CHLORIDE ER 20 MEQ TAB.ER PO SCH (21:01)
[2022-02-06] MEDS: ACETAMINOPHEN TAB 325 MG TAB PO PRN ×3 (01:23→15:43)
[2022-02-06 06:32] LABS: Glucose,Whole Blood 352 mg/dL (70-110)
[2022-02-06 06:48] LABS: Glucose,Whole Blood 118 mg/dL (70-110)
[2022-02-06] MEDS: PANTOPRAZOLE 40 MG TABLET PO SCH (07:04)
[2022-02-06] MEDS: INSULIN DETEMIR (LEVEMIR) 100 UNIT/ML SYR SQ SCH (07:04)
[2022-02-06 07:05] LABS: HGB 10.9 gm/dL (13.0-17.5); MCH 28.8 pg (25.0-35.0); MCHC 33.1 g/dL (31.0-37.0); Mean Platelet Volume 8.3; Platelet Count 228 k/uL (150-450); RBC 3.79 m/uL (4.30-5.90); RDW 14.1 % (11.5-15.5); WBC 10.3 k/uL (3.8-10.6)
--- NOTE | 2022-02-06 07:05 | P.PN ---
Subjective Progress Note Date: 02/05/22 Principal diagnosis: Bicuspid calcific aortic stenosis/insufficiency. Past medical history significant for hypertension, hyperlipidemia, COPD, obstructive sleep apnea without home CPAP use, COVID-19 in June 2021, coronary artery disease with history of stent placement to his right coronary artery in 2018, occasional tobacco use smokes an occasional cigar, family history of coronary artery disease with his father having a myocardial infarction, chronic lower back pain and history of pulmonary embolus in which he was on Eliquis for anticoagulation. POD #5 aortic valve replacement with a 25 mm On-X mechanical valve, ligation of the left atrial appendage with a 35 mm Atricure clip, it aortic ultrasonography, patch closure of aortotomy with bovine pericardium area Postoperative acute blood loss anemia, expected given hemodilution and no pulmonary bypass. Postoperative paroxysmal atrial fibrillation, a known, recurrent after cardiac surgery. The patient was seen and examined today 02/05/2022 at his bedside in the intensive care unit. He denies any complaints of pain or shortness of breath at this time. He is sitting up to the bedside chair, is awake, alert, oriented 3 and is in no acute distress. He reports he feels much improved today from yesterday. He remains hemodynamically stable and is currently on no inotropic pressor support. Oxygen saturations are 94% on room air and he is achieving 2000 mL on his incentive spirometry. Bedside telemetry showing atrial fibrillation heart rate 103 bpm, he was given 1 dose of amiodarone 150 mg IV piggyback bolus throughout the night and was given and next her dose of Lasix 20 mg IV 1. The patient reports he had a bowel movement this morning and his urine output in the last 8 hours was 1575 mL. Laboratory results this morning show a WBC count of 9.2, hemoglobin 10.8, hematocrit 32.5, sodium 132, potassium 3.6, chloride 94, CO2 28, BUN 37, creatinine 1.25, glucose 115, calcium 7.7, magnesium 2.2, AST 53 and ALT 54. His INR this morning is greater than 10 and his PT is 107.5. His chest x-ray this morning shows improvement in his multifocal interstitial opacities. The patient has been up walking in the intensive care unit hallway with standby assistance from nursing staff and tolerating well. Objective - Vital Signs Vital signs: Vital Signs Temp 98.3 F 02/05/22 04:00 Pulse 112 H 02/05/22 07:00 Resp 18 02/05/22 07:00 BP 140/97 02/05/22 07:00 Pulse Ox 95 02/05/22 07:00 FiO2 60 02/02/22 23:00 Intake & Output 02/04/22 02/05/22 02/05/22 18:59 06:59 18:59 Intake Total 994 540 Output Total 1725 2375 0 Balance -731 -1835 0 Weight 116 kg Intake: Oral 994 540 Output: Urine 1725 2375 0 Other: Voiding Method Urinal Urinal # Voids 1 1 ABP, PAP, CO, CI - Last Documented Arterial Blood Pressure 102/63 Pulmonary Artery Pressure 27/10 Cardiac Output 5.5 Cardiac Index 2.5 - Exam CONSTITUTIONAL: Sitting up to the bedside chair in the intensive care unit, appears comfortable, cooperative, no apparent acute distress. HEENT: Neck is supple, no JVD, no lymphadenopathy. RESPIRATORY: Lungs sounds essentially clear throughout, diminished to his bilateral bases. No wheezes, rhonchi or crackles. Respirations are symmetrical and nonlabored. Currently on room air with oxygen saturations 94%. Able to achieve 2000 mL on his incentive spirometry. Strong cough. CARDIOVASCULAR: Irregular rhythm and controlled rate. S1 and S2 present with mechanical valvular click, negative for S3, gallop or murmur. Sternum is stable. Palpable peripheral pulses bilaterally, trace edema to his bilateral lower extremities. No calf pain or tenderness noted. Heart hugger in place with patient demonstrating appropriate use. Knee-high MICHELLE hose and sequential compression devices in place to his bilateral lower extremities. Bedside telemetry showing atrial fibrillation with a heart rate of 120 bpm. GASTROINTESTINAL: Abdomen soft, nontender, nondistended. Active bowel sounds present 4 quadrants. Tolerating diet. Passing flatus. No guarding or rigidity. Bowel movement this a.m. GENITOURINARY: Continues to void. Urine output 1575 mL in the last 8 hours. INTEGUMENTARY: Skin is warm and dry with no evidence of clubbing or cyanosis. Midline sternal incision clean dry and well approximated, covered with dry intact dressing. NEUROLOGIC: Cranial nerves II through XII intact. No focal deficits. MUSKULOSKELETAL: Able to move all extremities, strength equal bilaterally. PSYCHIATRIC: Alert and oriented to person place and time, appropriate affect, intact judgment and insight. - Allied health notes Allied health notes reviewed: nursing - Labs CBC & Chem 7: 02/05/22 05:45 02/05/22 11:52 Labs: Abnormal Lab Results - Last 24 Hours (Table) 02/04/22 02/04/22 02/04/22 Range/Units 08:01 11:16 16:23 RBC (4.30-5.90) m/uL Hgb (13.0-17.5) gm/dL Hct (39.0-53.0) % PT 87.1 H (9.0-12.0) sec INR 8.5 H* (<1.2) Sodium (137-145) mmol/L Chloride (98-107) mmol/L BUN (9-20) mg/dL Glucose (74-99) mg/dL POC Glucose (mg/dL) 129 H 135 H (70-110) mg/dL Calcium (8.4-10.2) mg/dL ALT (4-49) U/L Total Protein (6.3-8.2) g/dL Albumin (3.5-5.0) g/dL 02/04/22 02/04/22 02/05/22 Range/Units 20:05 20:56 05:45 RBC 3.71 L (4.30-5.90) m/uL Hgb 10.8 L (13.0-17.5) gm/dL Hct 32.5 L (39.0-53.0) % PT (9.0-12.0) sec INR (<1.2) Sodium (137-145) mmol/L Chloride (98-107) mmol/L BUN (9-20) mg/dL Glucose (74-99) mg/dL POC Glucose (mg/dL) 119 H 129 H (70-110) mg/dL Calcium (8.4-10.2) mg/dL ALT (4-49) U/L Total Protein (6.3-8.2) g/dL Albumin (3.5-5.0) g/dL 02/05/22 02/05/22 Range/Units 05:45 06:33 RBC (4.30-5.90) m/uL Hgb (13.0-17.5) gm/dL Hct (39.0-53.0) % PT (9.0-12.0) sec INR (<1.2) Sodium 132 L (137-145) mmol/L Chloride 94 L (98-107) mmol/L BUN 37 H (9-20) mg/dL Glucose 115 H (74-99) mg/dL POC Glucose (mg/dL) 129 H (70-110) mg/dL Calcium 7.7 L (8.4-10.2) mg/dL ALT 54 H (4-49) U/L Total Protein 5.3 L (6.3-8.2) g/dL Albumin 3.0 L (3.5-5.0) g/dL - Imaging and Cardiology Chest x-ray: report reviewed, image reviewed Assessment and Plan Assessment: 1. Bicuspid calcific aortic stenosis/insufficiency, status post aortic valve replacement with 25 mm On-X mechanical valve 2. Coronary artery disease status post stent placement to his right coronary artery in 2018 3. History of Hypertension 4. History of Hyperlipidemia, on atorvastatin 80 mg by mouth daily at bedtime on an outpatient basis 5. History of pulmonary embolus, was on Eliquis for anticoagulation on an outpatient basis 6. Chronic obstructive pulmonary disease, with a preoperative FEV1 57% of predicted value with a base of 2.01 L 7. Severe symptomatic obstructive sleep apnea, currently does not use CPAP therapy at home 8. Chronic ongoing tobacco dependence, smokes an occasional cigar 9. History of COVID-19 in June 2021 10. Morbid obesity with a BMI of 41.1 kg/m 11. Borderline diabetes mellitus type 2 with a preoperative hemoglobin A1c of 6.4%, diet-controlled 12. Family history of coronary artery disease with his father having a myocardial infarction at age 48 13. Postoperative acute blood loss anemia, expected given hemodilution and cardiopulmonary bypass 14. Acute kidney injury, possibly secondary to hypotension 15. Postoperative paroxysmal atrial fibrillation, a known common occurrence after cardiac surgery Plan: 1. Continue to maximize medical therapy with low-dose aspirin, statin, and beta milton. Will increase metoprolol tartrate 25 mg by mouth 3 times a day. 2. Decrease amiodarone to 200 mg by mouth twice a day. 3. Encourage incentive spirometry 10 times every hour while awake. Bronchodilators per pulmonology/critical care medicine. Continue Symbicort 804 0.5 g 2 puffs twice a day. 4. Increase activity, ambulate as tolerated. PT/OT/cardiac rehab following. 5. Will monitor daily labs and chest x-rays. Electrolyte replacement per protocol. 6. GI and DVT prophylaxis. 7. Pain control with current medication regimen. Avoid nephrotoxic agents. 8. Insulin management per primary care service. Borderline diabetic with a preoperative hemoglobin A1c 6.4%. 9. No Coumadin today as his INR is greater than 10. Goal INR for first 3 months 2-3, after 3 months goal INR 1.5-2. Continue to monitor daily PT and INR. Constance muller has an On-X mechanical aortic valve. 10. Continue to monitor BUN and creatinine. BUN 37 and creatinine 1.25 today. May bladder scan every 6 hours and when necessary post void residual. 11. Continue to record strict accurate intake and output. Daily weights. 12. The importance of risk modification including smoking cessation have been discussed with the patient. Smoking cessation education and counseling was provided, patient was strongly encouraged to quit smoking. 13. Shower daily. 14. Continue Lasix 40 mg IV twice a day, and potassium chloride 10 mEq by mouth twice a day while on Lasix. 15. Keep in the intensive care unit today for further monitoring due to his INR of greater than 10. Vitamin K 2 mg IV piggyback times one has been ordered. 16. More recommendations to follow based on patient's clinical course. Time with Patient: Greater than 30
[2022-02-06] MEDS: INSULIN ASPART (NovoLOG) 100 UNIT/ML VIAL SQ SCH ×4 (07:06→21:16)
[2022-02-06 07:09] LABS: INR 1.7 (<1.2); Prothrombin Time 17.3 sec (9.0-12.0)
[2022-02-06 07:33] LABS: Calcium 8.2 mg/dL (8.4-10.2)
--- NOTE | 2022-02-06 07:42 | P.PN ---
Subjective Progress Note Date: 02/06/22 Principal diagnosis: Aortic valve replacement. POD #3aortic valve replacement with a 25 mm On-X mechanical valve, ligation of the left atrial appendage with a 35 mm Atricure clip, it aortic ultrasonography, patch closure of aortotomy with bovine pericardium area Patient was reevaluated today on 02/01/22, patient was successfully extubated at 6:15 p.m. last evening. Initially extubated to BiPAP, and he is now on high flow nasal cannula at 15 L/m. Doing fairly well with incentive spirometry achieving about 1000 mL. Patient continues to have some pain from his chest tube, and he continues to have right IJ Sullivan-Charisma catheter and Cordis in place. He is hemodynamically stable, cardiac output is 5.5 and cardiac index is 2.5 his PA pressure 28/13 and CVP is 14. Remains on amiodarone drip at 0.5 mg/m as per protocol. Chest x-ray showed mostly postoperative changes, and scattered pleural parenchymal opacities reflecting mostly atelectasis. Expected. W scan is 13.7 hemoglobin 8.2, basic metabolic profile is normal creatinine is up to 1.23 today, was 1.06 yesterday. Blood sugars were 35 rest of the metabolic panel is normal Reevaluated today on 02/02/22, remains in the ICU, he is presently on BiPAP with IPAP of 14/6/60% O2 saturation is in the mid 90s. He is on IV fluid to KVO. He is postoperative day #2 doing fairly well, he is relatively asymptomatic, impr oving with his incentive spirometer. Nonetheless his O2 saturation remains marginal on 60% FiO2. Chest x-ray showed postsurgical changes no evidence of active disease noted. Left hemidiaphragm seems to be elevated Reevaluated today on 02/03/22, patient remains in the ICU, sitting up in the bedside chair, awake, alert oriented 3, in no distress. Patient seems to be doing great. However he remains on 15 L high flow nasal cannula and his chest x-ray is showing evidence of interstitial edema hence I'm recommending a dose of Lasix 40 mg IV push today. His bedside telemetry showing atrial fibrillation rate of 93/m, patient is on metoprolol is also on amiodarone orally. He received 2 boluses of amiodarone 150 mg IV piggyback. Overall the patient is doing well otherwise. WBC count 16.8 hemoglobin is 11.5. Electrolytes are normal BUN is 41 and creatinine 1.59 Progress note dated 02/04/2022. Postop day #4, status post aortic valve replacement for aortic stenosis. The patient had a mechanical valve placed. He is currently on 4 L nasal O2. He's not receiving any IV fluids. His INR this morning was 8.5. Coumadin is on hold. White count 11.1, hemoglobin 10.8, normal platelet count. Sodium 132, potassium 3.8, chlorides 96, CO2 25, BUN 44, creatinine 1.45. Chest x-ray shows diffuse bilateral infiltrates, likely related to fluid overload/CHF. Progress note dated 02/05/2022. Postop day #5, status post aortic valve replacement for aortic stenosis. The patient is again seen in the intensive care unit, room 265. Currently, he's on 3 L nasal cannula. He did have some atrial fibrillation last night, and was given some amiodarone. He's not receiving any IV fluids. He seems to be relatively stable this morning. Morning labs are currently pending. Morning chest x-ray is currently pending as well. Progress note dated 02/06/2022. Postop day #6, status post aortic valve replacement for aortic stenosis. The patient remains on 3 L nasal cannula. He did use BiPAP last night for only 1.5 hours. Not receiving any IV fluids. BiPAP settings were 14/5 and 50%. The patient's INR was elevated, and he did receive vitamin K yesterday. Clinically, he looks reasonably stable. Labs today include a white count 10.3, hemoglobin 10.9, hematocrit 33, platelet count 228,000. PT/INR was 17.3 and 1.7 respectively. That's in the near therapeutic range. Sodium 131, potassium 4, chlorides 94, CO2 27, BUN 39, creatinine 1.21. Calcium is 8.2. Chest x-ray has not yet been done. Objective - Vital Signs Vital signs: Vital Signs Temp 97 F L 02/06/22 04:00 Pulse 80 02/06/22 07:00 Resp 22 02/06/22 07:00 BP 115/87 02/06/22 07:00 Pulse Ox 94 L 02/06/22 06:00 FiO2 50 02/06/22 04:00 Intake & Output 02/05/22 02/06/22 02/06/22 18:59 06:59 18:59 Intake Total 50 1360 Output Total 1525 2750 0 Balance -1475 -1390 0 Weight 116.6 kg Intake: IV 50 Phytonadione 2 mg In 50 Sodium Chloride 0.9% 50 ml @ 100 mls/hr IVPB ONCE STA Rx#:[id number] Oral 1360 Output: Urine 1525 2750 0 Other: Voiding Method Urinal Urinal # Bowel Movements 1 ABP, PAP, CO, CI - Last Documented Arterial Blood Pressure 102/63 Pulmonary Artery Pressure 27/10 Cardiac Output 5.5 Cardiac Index 2.5 - Exam No acute distress, oriented 3. No respiratory distress. Currently on 3 L of oxygen. HEENT examination is grossly unremarkable. Neck supple. Full range of motion. No adenopathy thyromegaly or neck vein distention. Cardiovascular examination reveals a regular rhythm and rate. S1-S2 normal. No S3 or S4. No discernible murmur noted. Heart rate 80 bpm. Lungs reveal mostly clear breath sounds. Minimal to moderate scattered rhonchi. No wheezes or crackles. Breath sounds equal bilaterally. Saturations 94 %. Abdomen soft bowel sounds are heard. No masses or tenderness. Extremities are intact. No cyanosis clubbing or edema. Skin is without rash or lesion. Neurologic examination is brief but nonfocal. - Labs CBC & Chem 7: 02/06/22 06:40 02/06/22 06:40 Labs: Abnormal Lab Results - Last 24 Hours (Table) 02/05/22 02/05/22 02/05/22 Range/Units 05:45 11:31 16:43 RBC (4.30-5.90) m/uL Hgb (13.0-17.5) gm/dL Hct (39.0-53.0) % PT 107.5 H (9.0-12.0) sec INR >10.0 H* (<1.2) Sodium (137-145) mmol/L Chloride (98-107) mmol/L BUN (9-20) mg/dL Glucose (74-99) mg/dL POC Glucose (mg/dL) 123 H 153 H (70-110) mg/dL Calcium (8.4-10.2) mg/dL 02/05/22 02/06/22 02/06/22 Range/Units 19:55 06:31 06:40 RBC (4.30-5.90) m/uL Hgb (13.0-17.5) gm/dL Hct (39.0-53.0) % PT 17.3 H (9.0-12.0) sec INR 1.7 H (<1.2) Sodium (137-145) mmol/L Chloride (98-107) mmol/L BUN (9-20) mg/dL Glucose (74-99) mg/dL POC Glucose (mg/dL) 129 H 352 H (70-110) mg/dL Calcium (8.4-10.2) mg/dL 02/06/22 02/06/22 02/06/22 Range/Units 06:40 06:40 06:46 RBC 3.79 L (4.30-5.90) m/uL Hgb 10.9 L (13.0-17.5) gm/dL Hct 33.0 L (39.0-53.0) % PT (9.0-12.0) sec INR (<1.2) Sodium 131 L (137-145) mmol/L Chloride 94 L (98-107) mmol/L BUN 39 H (9-20) mg/dL Glucose 116 H (74-99) mg/dL POC Glucose (mg/dL) 118 H (70-110) mg/dL Calcium 8.2 L (8.4-10.2) mg/dL Assessment and Plan Assessment: Postop day #6, status post aortic valve replacement, with mechanical valve, for aortic stenosis. Bicuspid aortic valve, with aortic stenosis/insufficiency. Routine postoperative ventilator management. Postoperative atrial fibrillation. Hypertension. History of pulmonary embolism. 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 Severe obstructive sleep apnea syndrome, with an apnea/hypoxia index of 60. Obesity. History of coronavirus infection, June 2021. Type 2 diabetes mellitus. Family history of CAD. Plan: Plan dated 02/04/2022. The patient continues to do well. He continues with deep breathing, coughing, clearing of secretions. The patient also continues to use the incentive spirometer, every hour. The patient's INR this morning was 8.5. Either they will hold Coumadin, give the patient some fresh frozen plasma. The patient did not use BiPAP last night. The patient continues on amiodarone. Prognosis is guarded. We will continue to follow and make recommendations along the way. Plan dated 02/05/2022. The patient did develop some atrial fibrillation last night. He was given amiodarone. He is currently still in atrial fibrillation with a rate of about 100 bpm. His oxygen is at 3 L/m. His respiratory status appears stable. Morning labs in morning chest x-ray currently pending. We will continue to follow make recommendations were appropriate. We do recommend the patient continue to deep breathe, cough, and clear secretions, and use his incentive spirometer, hourly. Plan dated 02/06/2022. Currently, the patient's doing reasonably well. We will continue to follow. Today's postop day #6. He only wore the BiPAP last night for 1.5 hours. Currently on 3 L nasal cannula. She's in a normal sinus rhythm. Labs, x-rays, and medications are all reviewed. Prognosis is guarded. We will continue to follow make recommendations along the way. He needs to continue doing his incentive spirometer, every hour. Time with Patient: Less than 30
[2022-02-06] MEDS: SYMBICORT 80-4.5 MCG INHALER INHALATION SCH ×2 (07:51→19:30)
[2022-02-06] MEDS: IPRATROPIUM-ALBUTEROL 3 ML NEB INHALATION SCH ×4 (07:51→19:30)
--- NOTE | 2022-02-06 08:08 | XR ---
EXAMINATION TYPE: XR chest 1V portable DATE OF EXAM: 02/06/2022 COMPARISON: 02/05/2022 INDICATION: Postoperative TECHNIQUE: Single frontal view of the chest is obtained. FINDINGS: The heart size is mildly prominent. The pulmonary vasculature is prominent. No focal consolidations are evident. Mild bilateral scattered alveolar infiltrate may be present. Cor relate for some congestive heart failure IMPRESSION: 1. Clinical correlation recommended for congestive heart failure.
[2022-02-06] MEDS: POTASSIUM CHLORIDE ER 20 MEQ TAB.ER PO SCH ×2 (08:09→21:13)
[2022-02-06] MEDS: FUROSEMIDE 10 MG/ML 4 ML VIAL IV SCH ×2 (08:10→21:14)
[2022-02-06] MEDS: ASPIRIN 81 MG PO SCH (08:10)
[2022-02-06] MEDS: METOPROLOL TARTRATE 50 MG TAB PO SCH ×2 (08:10→21:14)
[2022-02-06] MEDS: AMIODARONE 200 MG TAB PO SCH ×2 (08:10→21:14)
[2022-02-06] MEDS ORDERED: metOLazone 2.5 MG TAB PO ONE (09:15)
[2022-02-06 11:26] LABS: Glucose,Whole Blood 119 mg/dL (70-110)
--- NOTE | 2022-02-06 11:50 | P.PN ---
Subjective Progress Note Date: 02/06/22 - History of Present Illness 02/01/22 This is a 51-year-old gentleman with past medical history of CAD, MT, stenting of RCA ,PE on Eliquis, COPD, obstructive sleep apnea ,diabetes mellitus, gastroesophageal reflux disease, hypertension, hyperlipidemia, nicotine dependence, morbid obesity, Covid June 2021-continued to have progressive exertional shortness of breath, YASH reported normal LV function, moderate aortic stenosis with [id number] aortic regurgitation involving heavily calcified bicuspid aortic valve. Patient is status post Bicuspid calcified aortic stenosi s/insufficiency status post AVR, ligation of left atrial appendage, postop day #1, tolerated procedure well. Extubated last night and currently maintaining O2 sats in the 90s on 15 L high flow nasal cannula. Incentive spirometer 7-800. Complains of chest tube discomfort. Chest x-ray reporting postop changes, scattered pleural progression multiple PACs, most likely atelectasis. Afebrile, WBC 11.4, hemoglobin 12.4, platelets 164 creatinine increased to 1.23, blood sugars controlled on insulin drip. CO/CI 5.5/2.5. Transitioned to oral amiodarone. Telemetry sinus rhythm. 02/04/2022 diuresing well on IV push Lasix with 24-hour I&O reflecting a negative fluid balance, weight down 1.7 kg. sitting up in chair, reports pain better controlled. Minimal exertional shortness of breath, slept in the chair last night. Requiring 4 L nasal cannula O2 to maintain O2 sats in the 90s. Chest x-ray reporting multifocal airspace opacity's, suggestive of pulmonary edema, not significantly changed from prior.Creatinine 1.45. Blood sugars controlled. Sodium 132. INR elevated,7, repeated level 8.5. anticoagulated on Coumadin for mechanical aortic valve,continues on amiodarone for paroximal A. fi b, currently sinus rhythm. Afebrile, WBC 11.1. 02/05/2022 diuresing well, on Lasix IV push with 24-hour I&O reflecting a negative fluid balance, oxygen further weaned down to 2 L nasal cannula. Re ports IS up to 2000. Chest x-ray reporting improvement in bilateral interstitial opacity's from prior exam.Tachycardia, telemetry atrial fibrillation, received amiodarone in addition to beta milton. INR greater than 10, vitamin K ,platelets ordered as per cardiothoracic surgery. Tbili 0.5, AST 53, ALT 54, alk phos 77, Renal function improving. Diet intake 25% this am. Denies nausea or vomiting. Reports positive bowel movement this morning. Denies chills or sweats. 02/06/2022 required BiPAP for a couple hours during the night, currently maintaining O2 sats in the mid 90s on 3 L nasal cannula. Chest x-ray pending.Sinus rhythm. INR decreased to 1.7 today, post vitamin K yesterday. Re ports increased diet intake with no nausea or vomiting. Blood sugars controlled. BUN 39, creatinine 1.21 .Reports he ambulated yesterday, tolerating exertion well. Objective - Vital Signs Vital signs: Vital Signs Temp 97.9 F 02/06/22 08:00 Pulse 85 02/06/22 08:06 Resp 12 02/06/22 08:00 BP 117/88 02/06/22 08:00 Pulse Ox 96 02/06/22 08:00 FiO2 50 02/06/22 04:00 Intake & Output 02/05/22 02/06/22 02/06/22 18:59 06:59 18:59 Intake Total 50 1360 Output Total 1525 2750 1350 Balance -1475 -1390 -1350 Weight 116.6 kg Intake: IV 50 Phytonadione 2 mg In 50 Sodium Chloride 0.9% 50 ml @ 100 mls/hr IVPB ONCE STA Rx#:[id number] Oral 1360 Output: Urine 1525 2750 1350 Other: Voiding Method Urinal Urinal Urinal # Bowel Movements 1 ABP, PAP, CO, CI - Last Documented Arterial Blood Pressure 102/63 Pulmonary Artery Pressure 27/10 Cardiac Output 5.5 Cardiac Index 2.5 - Exam PHYSICAL EXAM: VITAL SIGNS: [As above] GENERAL: Sitting up in chair, no acute distress. HEENT: Conjunctivae normal. eyes normal. MMM. NECK: Supple, No JVD. No thyroid enlargement. No LNs CARDIOVASCULAR: S1, S2 regular. mechanical click, wearing heart hugger. RESPIRATION: Equal air entry, bilateral bases diminished. ABDOMEN: Soft, nontender . No guarding. no masses palpable.+BS LEGS: No edema. no swelling PSYCHIATRY: Alert and oriented X3, mood and affect normal. NERVOUS SYSTEM: Cranial N 2-12 grossly normal.No focal deficits.Strength and sensation grossly intact. Skin: Warm and dry, no rash - Labs CBC & Chem 7: 02/06/22 06:40 02/06/22 06:40 Labs: Abnormal Lab Results - Last 24 Hours (Table) 02/05/22 02/05/22 02/06/22 Range/Units 16:43 19:55 06:31 RBC (4.30-5.90) m/uL Hgb (13.0-17.5) gm/dL Hct (39.0-53.0) % PT (9.0-12.0) sec INR (<1.2) Sodium (137-145) mmol/L Chloride (98-107) mmol/L BUN (9-20) mg/dL Glucose (74-99) mg/dL POC Glucose (mg/dL) 153 H 129 H 352 H (70-110) mg/dL Calcium (8.4-10.2) mg/dL 02/06/22 02/06/22 02/06/22 Range/Units 06:40 06:40 06:40 RBC 3.79 L (4.30-5.90) m/uL Hgb 10.9 L (13.0-17.5) gm/dL Hct 33.0 L (39.0-53.0) % PT 17.3 H (9.0-12.0) sec INR 1.7 H (<1.2) Sodium 131 L (137-145) mmol/L Chloride 94 L (98-107) mmol/L BUN 39 H (9-20) mg/dL Glucose 116 H (74-99) mg/dL POC Glucose (mg/dL) (70-110) mg/dL Calcium 8.2 L (8.4-10.2) mg/dL 02/06/22 02/06/22 Range/Units 06:46 11:24 RBC (4.30-5.90) m/uL Hgb (13.0-17.5) gm/dL Hct (39.0-53.0) % PT (9.0-12.0) sec INR (<1.2) Sodium (137-145) mmol/L Chloride (98-107) mmol/L BUN (9-20) mg/dL Glucose (74-99) mg/dL POC Glucose (mg/dL) 118 H 119 H (70-110) mg/dL Calcium (8.4-10.2) mg/dL Assessment and Plan Assessment: Symptomatic Bicuspid calcified aortic stenosis and insufficiency status post AVR with mechanical valve, ligation of left atrial appendage Acute Hypoxic respiratory failure,post extubation, requiring 15 L high flow nasal cannula, improving, currently down to 4 L NC Atelactasis, postoperative, expected Postoperative paroxysmal atrial fibrillation, postop, expected outcome Hypercoagulopathy, on Coumadin, postop, status post vitamin K CAD, history of MT, stents History of COVID June 2021 COPD Obstructive sleep apnea, Diabetes mellitus hemoglobin A1c 6.4 Gastroesophageal reflux disease Hypertension Hyperlipidemia Nicotine dependence Morbid obesity, BMI 41.1 Plan: Continue on current medication regime ,monitoring and symptomatic treatment. Chest x-ray pending.Continue aggressive pulmonary toileting with nebulized bronchodilators, incentive spirometer reinforced. Increase ambulation as tolerated. The impression and plan of care has been dictated as directed. : I performed a history and examination of this patient, discussed the same with the dictator. I agree with the dictator's note ,documented as a scribe. Any additional findings or plans will be noted.
--- NOTE | 2022-02-06 12:47 | P.PN ---
Subjective Progress Note Date: 02/06/22 Principal diagnosis: Bicuspid calcific aortic stenosis/insufficiency. Past medical history significant for hypertension, hyperlipidemia, COPD, obstructive sleep apnea without home CPAP use, COVID-19 in June 2021, coronary artery disease with history of stent placement to his right coronary artery in 2018, occasional tobacco use smokes an occasional cigar, family history of coronary artery disease with his father having a myocardial infarction, chronic lower back pain and history of pulmonary embolus in which he was on Eliquis for anticoagulation. POD #6 aortic valve replacement with a 25 mm On-X mechanical valve, ligation of the left atrial appendage with a 35 mm Atricure clip, it aortic ultrasonography, patch closure of aortotomy with bovine pericardium area Postoperative acute blood loss anemia, expected given hemodilution and no pulmonary bypass. Postoperative paroxysmal atrial fibrillation, a known, recurrent after cardiac surgery. The patient was seen and examined in follow-up today 02/06/2022 at his bedside in the intensive care unit. Currently his sitting up to the bedside chair, is awake, alert, oriented 3 and is in no acute apparent distress. His is present at his bedside. Currently the patient denies any complaints of pain or shortness of breath, although reports with ambulation he does get episodes of shortness of breath. Oxygen saturations are 94% on 3 L nasal cannula and he is achieving 2000 mL on his incentive spirometry with encouragement. He remains hemodynamically stable and is currently on no inotropic or pressor support. Bedside telemetry showing normal sinus rhythm heart rate 80 bpm, no further reported episodes of atrial fibrillation. He has been showering daily. He reports he has been up ambulating in the intensive care unit with standby assistance from nursing and therapy staff at least 4 times per day. His INR yesterday was greater than 10 and he was given vitamin K 2 mg IV piggyback times one. Laboratory results this morning show a WBC count of 10.3, hemoglobin 10.9, hematocrit 33.0, platelets 228, sodium 131, potassium 4.0, chloride 94, CO2 27, BUN 39, creatinine 1.21, glucose 116, calcium 8.2, PT 17.3 and INR 1.7. His been afebrile in the last 24 hours. Objective - Vital Signs Vital signs: Vital Signs Temp 97 F L 02/06/22 04:00 Pulse 80 08/24/22 06:00 Resp 8 L 02/06/22 06:00 BP 135/76 02/06/22 06:00 Pulse Ox 94 L 02/06/22 06:00 FiO2 50 02/06/22 04:00 Intake & Output 02/05/22 02/06/22 02/06/22 18:59 06:59 18:59 Intake Total 50 1360 Output Total 1525 2750 Balance -1475 -1390 Weight 116.6 kg Intake: IV 50 Phytonadione 2 mg In 50 Sodium Chloride 0.9% 50 ml @ 100 mls/hr IVPB ONCE STA Rx#:[id number] Oral 1360 Output: Urine 1525 2750 Other: Voiding Method Urinal Urinal # Bowel Movements 1 ABP, PAP, CO, CI - Last Documented Arterial Blood Pressure 102/63 Pulmonary Artery Pressure 27/10 Cardiac Output 5.5 Cardiac Index 2.5 - Exam CONSTITUTIONAL: Sitting up to the bedside chair in the intensive care unit, appears comfortable, cooperative, no apparent acute distress. HEENT: Neck is supple, no JVD, no lymphadenopathy. RESPIRATORY: Lungs sounds essentially clear throughout, scattered expiratory wheezes and rhonchi throughout, diminished to his bilateral bases. Respirations are symmetrical and nonlabored. Currently on 3 L nasal cannula with oxygen saturations 94%. Able to achieve 2000 mL on his incentive spirometry. Strong cough. CARDIOVASCULAR: Regular rhythm and rate. S1 and S2 present with mechanical valv ular click, negative for S3, gallop or murmur. Sternum is stable. Palpable peripheral pulses bilaterally, trace edema to his bilateral lower extremities. No calf pain or tenderness noted. Heart hugger in place with patient demonstrating appropriate use. Knee-high MICHELLE hose and sequential compression devices in place to his bilateral lower extremities. Bedside telemetry showing normal sinus rhythm with a heart rate of 80 bpm. GASTROINTESTINAL: Abdomen soft, nontender, nondistended. Active bowel sounds present 4 quadrants. Tolerating diet. Passing flatus. No guarding or rigidity. Bowel movement yesterday 02/05/2022. GENITOURINARY: Continues to void. Urine output 2200 mL in the last 8 hours. INTEGUMENTARY: Skin is warm and dry with no evidence of clubbing or cyanosis. Midline sternal incision clean dry and well approximated, covered with dry intact dressing. NEUROLOGIC: Cranial nerves II through XII intact. No focal deficits. MUSKULOSKELETAL: Able to move all extremities, strength equal bilaterally. PSYCHIATRIC: Alert and oriented to person place and time, appropriate affect, intact judgment and insight. - Allied health notes Allied health notes reviewed: nursing - Labs CBC & Chem 7: 02/06/22 06:40 02/06/22 06:40 Labs: Abnormal Lab Results - Last 24 Hours (Table) 02/05/22 02/05/22 02/05/22 Range/Units 05:45 05:45 11:31 PT 107.5 H (9.0-12.0) sec INR >10.0 H* (<1.2) Sodium 132 L (137-145) mmol/L Chloride 94 L (98-107) mmol/L BUN 37 H (9-20) mg/dL Glucose 115 H (74-99) mg/dL POC Glucose (mg/dL) 123 H (70-110) mg/dL Calcium 7.7 L (8.4-10.2) mg/dL ALT 54 H (4-49) U/L Total Protein 5.3 L (6.3-8.2) g/dL Albumin 3.0 L (3.5-5.0) g/dL 02/05/22 02/05/22 02/06/22 Range/Units 16:43 19:55 06:31 PT (9.0-12.0) sec INR (<1.2) Sodium (137-145) mmol/L Chloride (98-107) mmol/L BUN (9-20) mg/dL Glucose (74-99) mg/dL POC Glucose (mg/dL) 153 H 129 H 352 H (70-110) mg/dL Calcium (8.4-10.2) mg/dL ALT (4-49) U/L Total Protein (6.3-8.2) g/dL Albumin (3.5-5.0) g/dL 02/06/22 Range/Units 06:46 PT (9.0-12.0) sec INR (<1.2) Sodium (137-145) mmol/L Chloride (98-107) mmol/L BUN (9-20) mg/dL Glucose (74-99) mg/dL POC Glucose (mg/dL) 118 H (70-110) mg/dL Calcium (8.4-10.2) mg/dL ALT (4-49) U/L Total Protein (6.3-8.2) g/dL Albumin (3.5-5.0) g/dL - Imaging and Cardiology Chest x-ray: report reviewed, image reviewed Assessment and Plan Assessment: 1. Bicuspid calcific aortic stenosis/insufficiency, status post aortic valve replacement with 25 mm On-X mechanical valve 2. Coronary artery disease status post stent placement to his right coronary artery in 2018 3. History of Hypertension 4. History of Hyperlipidemia, on atorvastatin 80 mg by mouth daily at bedtime on an outpatient basis 5. History of pulmonary embolus, was on Eliquis for anticoagulation on an outpatient basis 6. Chronic obstructive pulmonary disease, with a preoperative FEV1 57% of predicted value with a base of 2.01 L 7. Severe symptomatic obstructive sleep apnea, currently does not use CPAP therapy at home 8. Chronic ongoing tobacco dependence, smokes an occasional cigar 9. History of COVID-19 in June 2021 10. Morbid obesity with a BMI of 41.1 kg/m 11. Borderline diabetes mellitus type 2 with a preoperative hemoglobin A1c of 6.4%, diet-controlled 12. Family history of coronary artery disease with his father having a myocardial infarction at age 48 13. Postoperative acute blood loss anemia, expected given hemodilution and cardiopulmonary bypass 14. Acute kidney injury, possibly secondary to hypotension 15. Postoperative paroxysmal atrial fibrillation, a known common occurrence after cardiac surgery Plan: 1. Continue to maximize medical therapy with low-dose aspirin, statin, and beta milton. Will increase metoprolol tartrate as tolerated. The metoprolol tartrate was increased to 50 mg by mouth twice a day yesterday a 2021. 2. Continue amiodarone to 200 mg by mouth twice a day. 3. Wean oxygen as tolerated. Encourage incentive spirometry 10 times every hour while awake. Bronchodilators per pulmonology/critical care medicine. Continue Symbicort 804 0.5 g 2 puffs twice a day. 4. Increase activity, ambulate as tolerated. PT/OT/cardiac rehab following. 5. Will monitor daily labs and chest x-rays. Electrolyte replacement per protocol. 6. GI and DVT prophylaxis. 7. Pain control with current medication regimen. Avoid nephrotoxic agents. 8. Insulin management per primary care service. Borderline diabetic with a preoperative hemoglobin A1c 6.4%. 9. INR is 1.7 today and will be given Coumadin2.5 mg by mouth 1 today. Continue to monitor daily PT and INR with goal INR for first 3 months 2-3, after 3 months goal INR 1.5-2. Continue to monitor daily PT and INR. Patient has an On-X mechanical aortic valve. 10. Continue to monitor BUN and creatinine. BUN 39 and creatinine 1.21 today. May bladder scan every 6 hours and when necessary post void residual. 11. Continue to record strict accurate intake and output. Daily weights. 12. The importance of risk modification including smoking cessation have been discussed with the patient. Smoking cessation education and counseling was provided, patient was strongly encouraged to quit smoking. 13. Shower daily. 14. Continue Lasix 40 mg IV twice a day, and potassium chloride 20 mEq by mouth twice a day while on Lasix. He has been placed on a 1500 mL fluid restriction daily. 15. Zaroxolyn 2.5 mg by mouth 1 now. 16. Transfer orders to third floor cardiac stepdown unit at been placed. Discharge planning is in place. 17. More recommendations to follow based on patient's clinical course. Time with Patient: Greater than 30
[2022-02-06] MEDS ORDERED: WARFARIN 2.5 MG TAB PO ONE (18:00)
--- NOTE | 2022-02-06 18:54 | CA ---
Transthoracic Echo Report Name: Ac Munoz Age: 51 Gender: M : 1970 Exam Date: 02/06/2022 11:09 Exam Location: [facility] Ht (in): 67 Wt (lb): 257 Ordering Physician: Syl Araujo MD ([id number]) Attending/Referring Phys: Leather Flesher Jahaira Fine RDCS Procedure CPT: Indications: LV function Cardiac Hx: Technical Quality: Technically difficult study Contrast 1: Lumason Total Dose (mL): 4 Contrast 2: Total Dose (mL): MEASUREMENTS (Male / Female) Normal Values 2D ECHO LV Diastolic Diameter PLAX 4.7 cm 4.2 - 5.9 / 3.9 - 5.3 cm LV Systolic Diameter PLAX 2.8 cm IVS Diastolic Thickness 1.5 cm 0.6 - 1.0 / 0.6 - 0.9 cm LVPW Diastolic Thickness 1.6 cm 0.6 - 1.0 / 0.6 - 0.9 cm LV Relative Wall Thickness 0.7 FINDINGS Left Ventricle Limited study, S/P AV replacement, preserved left ventricular systolic function. Moderately increased left ventricular wall thickness. Left ventricular ejection fraction is estimated at 50-55 %. Abnormal (paradoxical) septal motion consistent with postoperative state. Right Ventricle Right Atrium Left Atrium Mitral Valve Aortic Valve Tricuspid Valve Pulmonic Valve Pericardium Small pericardial effusion. Aorta CONCLUSIONS 1. Left ventricle systolic function borderline normal 2. Small pericardial effusion. Previewed by: Dr. Jeffy Guo MD (Electronically Signed) Final Date: 06 February 2022 18:54
[2022-02-06 21:00] LABS: Glucose,Whole Blood 132 mg/dL (70-110)
[2022-02-06] MEDS: MELATONIN 3 MG TABLET PO SCH (21:13)
[2022-02-06] MEDS: SENNOSIDES-DOCUSATE SODIUM 1 EACH TAB PO SCH (21:13)
[2022-02-06] MEDS: ATORVASTATIN 80 MG TAB PO SCH (21:14)
[2022-02-07] MEDS: ACETAMINOPHEN TAB 325 MG TAB PO PRN ×2 (02:42→13:09)
[2022-02-07 06:54] LABS: HCT 36.5 % (39.0-53.0); MCH 28.8 pg (25.0-35.0); MCHC 32.8 g/dL (31.0-37.0); MCV 87.7 fL (80.0-100.0); Mean Platelet Volume 8.5; Platelet Count 292 k/uL (150-450); RBC 4.17 m/uL (4.30-5.90); RDW 14.2 % (11.5-15.5); WBC 13.2 k/uL (3.8-10.6)
[2022-02-07 06:56] LABS: Glucose,Whole Blood 127 mg/dL (70-110)
[2022-02-07 07:01] LABS: INR 2.6 (<1.2)
[2022-02-07] MEDS: PANTOPRAZOLE 40 MG TABLET PO SCH (07:07)
[2022-02-07] MEDS: INSULIN DETEMIR (LEVEMIR) 100 UNIT/ML SYR SQ SCH (07:07)
[2022-02-07 07:08] LABS: Calcium 8.7 mg/dL (8.4-10.2); Potassium 3.9 mmol/L (3.5-5.1)
[2022-02-07] MEDS: INSULIN ASPART (NovoLOG) 100 UNIT/ML VIAL SQ SCH ×4 (07:08→20:40)
[2022-02-07] MEDS: SYMBICORT 80-4.5 MCG INHALER INHALATION SCH ×2 (08:00→20:53)
[2022-02-07] MEDS: IPRATROPIUM-ALBUTEROL 3 ML NEB INHALATION SCH ×4 (08:00→20:53)
--- NOTE | 2022-02-07 08:11 | XR ---
EXAMINATION TYPE: XR chest 2V DATE OF EXAM: 02/07/2022 COMPARISON: Chest x-ray from one day earlier and older studies. HISTORY: Postoperative open cardiac surgery TECHNIQUE: Frontal and lateral views of the chest are obtained. FINDINGS: Overlying sternal wires along with left atrial appendage clipping and cardiac valvular surg ical change are all redemonstrated. Persistent low lung volumes and mild cardiomegaly with mild central vascular congestion shows slight improvement. Tiny bilateral pleural effusions on lateral view are noted. The osseous structures are intact. IMPRESSION: Low lung volumes and mild cardiomegaly with mild central vascular congestion and tiny bi lateral pleural effusions. Some improvement from one day earlier. Findings consistent with improving CHF exacerbation.
[2022-02-07] MEDS: METOPROLOL TARTRATE 50 MG TAB PO SCH ×2 (08:23→20:28)
[2022-02-07] MEDS: AMIODARONE 200 MG TAB PO SCH ×2 (08:23→20:27)
[2022-02-07] MEDS: ASPIRIN 81 MG PO SCH (08:23)
[2022-02-07] MEDS: POTASSIUM CHLORIDE ER 20 MEQ TAB.ER PO SCH ×4 (08:23→20:29)
[2022-02-07] MEDS: FUROSEMIDE 10 MG/ML 4 ML VIAL IV SCH ×2 (08:24→09:58)
--- NOTE | 2022-02-07 08:44 | PN ---
PROGRESS NOTE SUBJECTIVE: Mr. Munoz is a 51-year-old gentleman status post aortic valve replacement. He has had some volume overload picture. He has been diuresed. He feels better. His breathing is easier. OBJECTIVE: VITAL SIGNS: Stable. He is maintaining sinus rhythm. NECK: JVD 1 cm. No carotid bruit. HEART: S1, S2 with prosthetic valve clicks. LUNGS: Reveal improved air entry without significant rales. ABDOMEN: Unchanged. EXTREMITIES: Exam unchanged. PLAN: To continue IV diuresis for now and hopefully tomorrow, switch him to oral Lasix and increase activity. He is status post aortic valve replacement for a bicuspid aortic valve with a mechanical valve and his volume overload picture has improved remarkably. MMODL / IJN: [id number] /
--- NOTE | 2022-02-07 08:47 | P.PN ---
Subjective Progress Note Date: 02/07/22 Principal diagnosis: Bicuspid calcific aortic stenosis/insufficiency. Past medical history significant for hypertension, hyperlipidemia, COPD, obstructive sleep apnea without home CPAP use, COVID-19 in June 2021, coronary artery disease with history of stent placement to his right coronary artery in 2018, occasional tobacco use smokes an occasional cigar, family history of coronary artery disease with his father having a myocardial infarction, chronic lower back pain and history of pulmonary embolus in which he was on Eliquis for anticoagulation. POD #7 aortic valve replacement with a 25 mm On-X mechanical valve, ligation of the left atrial appendage with a 35 mm Atricure clip, it aortic ultrasonography, patch closure of aortotomy with bovine pericardium area Postoperative acute blood loss anemia, expected given hemodilution and no pulmonary bypass. Postoperative paroxysmal atrial fibrillation, a known, recurrent after cardiac surgery. The patient was seen and examined in follow-up today 02/07/2022 at his bedside in the intensive care unit. Currently he is sitting up to the bedside chair, is awake, alert, oriented 3 and is in no acute distress. Denies any complaints of pain, shortness of breath or nausea at this time. He reports he had a good nig ht sleep and has been walking in the intensive care unit hallway with standby assistance from nursing and therapy staff. He is awaiting a bed on the cardiac stepdown unit. He remains hemodynamically stable and is currently on no inotropic or pressor support. Oxygen saturation are 92% on room air and he is achieving 2000 mL on his incentive spirometry with encouragement. He is been receiving Lasix 40 mg IV twice a day and was given a dose of Zaroxolyn 2.5 mg by mouth 1 yesterday with good diuresis. Bedside telemetry is showing normal sinus rhythm heart rate 85 bpm, no further episodes of atrial fibrillation reported. He is been afebrile the last 24 hours. Laboratory results this [facility] show a WBC count of 13.2, hemoglobin 12.0, hematocrit 36.5, platelets 292, sodium 132, potassium 3.9, chloride 90, CO2 31, BUN 35, creatinine 1.24, glucose 107, calcium 8.7, magnesium 2.0. PT 26.0 and INR 2.6 today, he was given Coumadin 2 mg by mouth 1 yesterday for an INR of 1.7. A limited transthoracic 2-D echocardiogram was completed yesterday which showed a preserved left ventricular systolic function, a left ventricular ejection fraction estimated at 50-55%, an abnormal paradoxical septal wall motion consistent with postoperative state and a small pericardial effusion. Objective - Vital Signs Vital signs: Vital Signs Temp 98.1 F 02/07/22 00:00 Pulse 94 02/07/22 08:11 Resp 29 H 02/07/22 06:00 BP 107/74 02/07/22 04:00 Pulse Ox 95 02/07/22 00:00 FiO2 50 02/07/22 03:53 Intake & Output 02/06/22 02/07/22 02/07/22 18:59 06:59 18:59 Intake Total 400 Output Total 2400 3050 Balance -2400 -2650 Weight 113.3 kg Intake: Oral 400 Output: Urine 2400 3050 Other: Voiding Method Urinal Urinal ABP, PAP, CO, CI - Last Documented Arterial Blood Pressure 102/63 Pulmonary Artery Pressure 27/10 Cardiac Output 5.5 Cardiac Index 2.5 - Exam CONSTITUTIONAL: Sitting up to the bedside chair in the intensive care unit, appears comfortable, cooperative, no apparent acute distress. HEENT: Neck is supple, no JVD, no lymphadenopathy. RESPIRATORY: Lungs sounds essentially clear throughout, diminished to his bilateral bases. Respirations are symmetrical and nonlabored. Currently on room air with oxygen saturations 92%. Able to achieve 2000 mL on his incentive spirometry. Strong cough. CARDIOVASCULAR: Regular rhythm and rate. S1 and S2 present with mechanical valvular click, negative for S3, gallop or murmur. Sternum is stable. Palpable peripheral pulses bilaterally, trace edema to his bilateral lower extremities. No calf pain or tenderness noted. Heart hugger in place with patient demonstrating appropriate use. Knee-high MICHELLE hose and sequential compression devices in place to his bilateral lower extremities. Bedside telemetry showing normal sinus rhythm with a heart rate of 85 bpm. GASTROINTESTINAL: Abdomen soft, nontender, nondistended. Active bowel sounds present 4 quadrants. Tolerating diet. Passing flatus. No guarding or rigidity. Bowel movement 02/05/2022. GENITOURINARY: Continues to void. Urine output 3050 mL in the last 8 hours. INTEGUMENTARY: Skin is warm and dry with no evidence of clubbing or cyanosis. Midline sternal incision clean dry and well approximated, covered with dry intact dressing. NEUROLOGIC: Cranial nerves II through XII intact. No focal deficits. MUSKULOSKELETAL: Able to move all extremities, strength equal bilaterally. PSYCHIATRIC: Alert and oriented to person place and time, appropriate affect, intact judgment and insight. - Allied health notes Allied health notes reviewed: nursing - Labs CBC & Chem 7: 02/07/22 06:11 02/07/22 06:11 Labs: Abnormal Lab Results - Last 24 Hours (Table) 02/06/22 02/06/22 02/07/22 Range/Units 11:24 20:58 06:11 WBC 13.2 H (3.8-10.6) k/uL RBC 4.17 L (4.30-5.90) m/uL Hgb 12.0 L (13.0-17.5) gm/dL Hct 36.5 L (39.0-53.0) % PT (9.0-12.0) sec INR (<1.2) Sodium (137-145) mmol/L Chloride (98-107) mmol/L Carbon Dioxide (22-30) mmol/L BUN (9-20) mg/dL Glucose (74-99) mg/dL POC Glucose (mg/dL) 119 H 132 H (70-110) mg/dL 02/07/22 02/07/22 02/07/22 Range/Units 06:11 06:11 06:54 WBC (3.8-10.6) k/uL RBC (4.30-5.90) m/uL Hgb (13.0-17.5) gm/dL Hct (39.0-53.0) % PT 26.0 H (9.0-12.0) sec INR 2.6 H (<1.2) Sodium 132 L (137-145) mmol/L Chloride 90 L (98-107) mmol/L Carbon Dioxide 31 H (22-30) mmol/L BUN 35 H (9-20) mg/dL Glucose 107 H (74-99) mg/dL POC Glucose (mg/dL) 127 H (70-110) mg/dL - Imaging and Cardiology Chest x-ray: report reviewed, image reviewed Assessment and Plan Assessment: 1. Bicuspid calcific aortic stenosis/insufficiency, status post aortic valve replacement with 25 mm On-X mechanical valve 2. Coronary artery disease status post stent placement to his right coronary artery in 2018 3. History of Hypertension 4. History of Hyperlipidemia, on atorvastatin 80 mg by mouth daily at bedtime on an outpatient basis 5. History of pulmonary embolus, was on Eliquis for anticoagulation on an outpatient basis 6. Chronic obstructive pulmonary disease, with a preoperative FEV1 57% of predicted value with a base of 2.01 L 7. Severe symptomatic obstructive sleep apnea, currently does not use CPAP therapy at home 8. Chronic ongoing tobacco dependence, smokes an occasional cigar 9. History of COVID-19 in June 2021 10. Morbid obesity with a BMI of 41.1 kg/m 11. Borderline diabetes mellitus type 2 with a preoperative hemoglobin A1c of 6.4%, diet-controlled 12. Family history of coronary artery disease with his father having a myocardial infarction at age 48 13. Postoperative acute blood loss anemia, expected given hemodilution and cardiopulmonary bypass 14. Acute kidney injury, possibly secondary to hypotension 15. Postoperative paroxysmal atrial fibrillation, a known common occurrence after cardiac surgery Plan: 1. Continue to maximize medical therapy with low-dose aspirin, statin, and beta milton. Will increase metoprolol tartrate as tolerated. 2. Continue amiodarone to 200 mg by mouth twice a day. 3. Encourage incentive spirometry 10 times every hour while awake. Bronchodilators per pulmonology/critical care medicine. Continue Symbicort 804 0.5 g 2 puffs twice a day. BiPAP management per pulmonary/critical care recommendations. 4. Increase activity, ambulate as tolerated. PT/OT/cardiac rehab following. 5. Will monitor daily labs and chest x-rays. Electrolyte replacement per pr otocol. 6. GI and DVT prophylaxis. 7. Pain control with current medication regimen. Avoid nephrotoxic agents. 8. Insulin management per primary care service. Borderline diabetic with a preoperative hemoglobin A1c 6.4%. 9. INR is 2.6 today and will be given Coumadin 1 mg by mouth 1 today. Con tinue to monitor daily PT and INR with goal INR for first 3 months 2-3, after 3 months goal INR 1.5-2. Continue to monitor daily PT and INR. Patient has an On-X mechanical aortic valve. 10. Continue to monitor BUN and creatinine. BUN 35 and creatinine 1.24 today. 11. Continue to record strict accurate intake and output. Daily weights. 12. The importance of risk modification including smoking cessation have been discussed with the patient. Smoking cessation education and counseling was provided, patient was strongly encouraged to quit smoking. 13. Shower daily. 14. Continue Lasix 40 mg IV daily, and potassium chloride 20 mEq by mouth daily while on Lasix. He has been placed on a 1500 mL fluid restriction daily. 15. Zaroxolyn 2.5 mg by mouth 1 now. 16. Transfer orders to third floor cardiac stepdown unit when bed is available. Discharge planning is in place. 17. More recommendations to follow based on patient's clinical course. Time with Patient: Greater than 30
[2022-02-07] MEDS ORDERED: metOLazone 2.5 MG TAB PO ONE (09:00)
--- NOTE | 2022-02-07 10:11 | P.PN ---
Subjective Progress Note Date: 02/07/22 Principal diagnosis: Aortic valve replacement. POD #3aortic valve replacement with a 25 mm On-X mechanical valve, ligation of the left atrial appendage with a 35 mm Atricure clip, it aortic ultrasonography, patch closure of aortotomy with bovine pericardium area Patient was reevaluated today on 02/01/22, patient was successfully extubated at 6:15 p.m. last evening. Initially extubated to BiPAP, and he is now on high flow nasal cannula at 15 L/m. Doing fairly well with incentive spirometry achieving about 1000 mL. Patient continues to have some pain from his chest tube, and he continues to have right IJ [place]-Charisma catheter and Cordis in place. He is hemodynamically stable, cardiac output is 5.5 and cardiac index is 2.5 his PA pressure 28/13 and CVP is 14. Remains on amiodarone drip at 0.5 mg/m as per protocol. Chest x-ray showed mostly postoperative changes, and scattered pleural parenchymal opacities reflecting mostly atelectasis. Expected. W scan is 13.7 hemoglobin 8.2, basic metabolic profile is normal creatinine is up to 1.23 today, was 1.06 yesterday. Blood sugars were 35 rest of the metabolic panel is normal Reevaluated today on 02/02/22, remains in the ICU, he is presently on BiPAP with IPAP of 14/6/60% O2 saturation is in the mid 90s. He is on IV fluid to KVO. He is postoperative day #2 doing fairly well, he is relatively asymptomatic, impr oving with his incentive spirometer. Nonetheless his O2 saturation remains marginal on 60% FiO2. Chest x-ray showed postsurgical changes no evidence of active disease noted. Left hemidiaphragm seems to be elevated Reevaluated today on 02/03/22, patient remains in the ICU, sitting up in the bedside chair, awake, alert oriented 3, in no distress. Patient seems to be doing great. However he remains on 15 L high flow nasal cannula and his chest x-ray is showing evidence of interstitial edema hence I'm recommending a dose of Lasix 40 mg IV push today. His bedside telemetry showing atrial fibrillation rate of 93/m, patient is on metoprolol is also on amiodarone orally. He received 2 boluses of amiodarone 150 mg IV piggyback. Overall the patient is doing well otherwise. WBC count 16.8 hemoglobin is 11.5. Electrolytes are normal BUN is 41 and creatinine 1.59 Progress note dated 02/04/2022. Postop day #4, status post aortic valve replacement for aortic stenosis. The patient had a mechanical valve placed. He is currently on 4 L nasal O2. He's not receiving any IV fluids. His INR this morning was 8.5. Coumadin is on hold. White count 11.1, hemoglobin 10.8, normal platelet count. Sodium 132, potassium 3.8, chlorides 96, CO2 25, BUN 44, creatinine 1.45. Chest x-ray shows diffuse bilateral infiltrates, likely related to fluid overload/CHF. Progress note dated 02/05/2022. Postop day #5, status post aortic valve replacement for aortic stenosis. The patient is again seen in the intensive care unit, room 265. Currently, he's on 3 L nasal cannula. He did have some atrial fibrillation last night, and was given some amiodarone. He's not receiving any IV fluids. He seems to be relatively stable this morning. Morning labs are currently pending. Morning chest x-ray is currently pending as well. Progress note dated 02/06/2022. Postop day #6, status post aortic valve replacement for aortic stenosis. The patient remains on 3 L nasal cannula. He did use BiPAP last night for only 1.5 hours. Not receiving any IV fluids. BiPAP settings were 14/5 and 50%. The patient's INR was elevated, and he did receive vitamin K yesterday. Clinically, he looks reasonably stable. Labs today include a white count 10.3, hemoglobin 10.9, hematocrit 33, platelet count 228,000. PT/INR was 17.3 and 1.7 respectively. That's in the near therapeutic range. Sodium 131, potassium 4, chlorides 94, CO2 27, BUN 39, creatinine 1.21. Calcium is 8.2. Chest x-ray has not yet been done. Progress note dated 02/07/2022. 51-year-old male, postop day #7, status post aortic valve replacement for aortic stenosis. Currently, he's on room air. He's not receiving any IV fluids. He did use BiPAP for 4 hours last night, with settings of 12/5 and 50%. He appears to be doing much better today. White count 13.2, hemoglobin 12, hematocrit 36.5, and platelet count 292,000. His INR is 2.6. Sodium 132, potassium 3.9, chlorides 90, CO2 31, BUN 35, and creatinine 1.25. Chest x-ray shows improving fluid overload. Objective - Vital Signs Vital signs: Vital Signs Temp 98.1 F 02/07/22 00:00 Pulse 94 02/07/22 08:11 Resp 29 H 02/07/22 06:00 BP 107/74 02/07/22 04:00 Pulse Ox 95 02/07/22 00:00 FiO2 50 02/07/22 03:53 Intake & Output 02/06/22 02/07/22 02/07/22 18:59 06:59 18:59 Intake Total 400 Output Total 2400 3050 Balance -2400 -2650 Weight 113.3 kg Intake: Oral 400 Output: Urine 2400 3050 Other: Voiding Method Urinal Urinal ABP, PAP, CO, CI - Last Documented Arterial Blood Pressure 102/63 Pulmonary Artery Pressure 27/10 Cardiac Output 5.5 Cardiac Index 2.5 - Exam No acute distress, oriented 3. No respiratory distress. Currently on room air . HEENT examination is grossly unremarkable. Neck supple. Full range of motion. No adenopathy thyromegaly or neck vein distention. Cardiovascular examination reveals a regular rhythm and rate. S1-S2 normal. No S3 or S4. No discernible murmur noted. Heart rate 94 bpm. Lungs reveal mostly clear breath sounds. Minimal to moderate scattered rhonchi. No wheezes or crackles. Breath sounds equal bilaterally. Saturations 96 %. Abdomen soft bowel sounds are heard. No masses or tenderness. Extremities are intact. No cyanosis clubbing or edema. Skin is without rash or lesion. Neurologic examination is brief but nonfocal. - Labs CBC & Chem 7: 02/07/22 06:11 02/07/22 06:11 Labs: Abnormal Lab Results - Last 24 Hours (Table) 02/06/22 02/06/22 02/07/22 Range/Units 11:24 20:58 06:11 WBC 13.2 H (3.8-10.6) k/uL RBC 4.17 L (4.30-5.90) m/uL Hgb 12.0 L (13.0-17.5) gm/dL Hct 36.5 L (39.0-53.0) % PT (9.0-12.0) sec INR (<1.2) Sodium (137-145) mmol/L Chloride (98-107) mmol/L Carbon Dioxide (22-30) mmol/L BUN (9-20) mg/dL Glucose (74-99) mg/dL POC Glucose (mg/dL) 119 H 132 H (70-110) mg/dL 02/07/22 02/07/22 02/07/22 Range/Units 06:11 06:11 06:54 WBC (3.8-10.6) k/uL RBC (4.30-5.90) m/uL Hgb (13.0-17.5) gm/dL Hct (39.0-53.0) % PT 26.0 H (9.0-12.0) sec INR 2.6 H (<1.2) Sodium 132 L (137-145) mmol/L Chloride 90 L (98-107) mmol/L Carbon Dioxide 31 H (22-30) mmol/L BUN 35 H (9-20) mg/dL Glucose 107 H (74-99) mg/dL POC Glucose (mg/dL) 127 H (70-110) mg/dL Assessment and Plan Assessment: Postop day #7, status post aortic valve replacement, with mechanical valve, for aortic stenosis. Bicuspid aortic valve, with aortic stenosis/insufficiency. Routine postoperative ventilator management. Postoperative atrial fibrillation. Hypertension. History of pulmonary embolism. 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 Severe obstructive sleep apnea syndrome, with an apnea/hypoxia index of 60. Obesity. History of coronavirus infection, June 2021. Type 2 diabetes mellitus. Family history of CAD. Plan: Plan dated 02/04/2022. The patient continues to do well. He continues with deep breathing, coughing, clearing of secretions. The patient also continues to use the incentive spirometer, every hour. The patient's INR this morning was 8.5. Either they will hold Coumadin, give the patient some fresh frozen plasma. The patient did not use BiPAP last night. The patient continues on amiodarone. Prognosis is guarded. We will continue to follow and make recommendations along the way. Plan dated 02/05/2022. The patient did develop some atrial fibrillation last night. He was given amiodarone. He is currently still in atrial fibrillation with a rate of about 100 bpm. His oxygen is at 3 L/m. His respiratory status appears stable. Morning labs in morning chest x-ray currently pending. We will continue to follow make recommendations were appropriate. We do recommend the patient continue to deep breathe, cough, and clear secretions, and use his incentive spirometer, hourly. Plan dated 02/06/2022. Currently, the patient's doing reasonably well. We will continue to follow. Today's postop day #6. He only wore the BiPAP last night for 1.5 hours. Currently on 3 L nasal cannula. She's in a normal sinus rhythm. Labs, x-rays, and medications are all reviewed. Prognosis is guarded. We will continue to follow make recommendations along the way. He needs to continue doing his incentive spirometer, every hour. Plan dated 02/07/2022. The patient appears be doing relatively well. He is currently on room air. He's not receiving any IV fluids. Labs, x-rays, and medications are all reviewed. He did use BiPAP last night for about 4 hours. Today is postop day #7. The patient will likely be discharged soon. No additional issues with atrial fibrillation. Prognosis is guarded. Time with Patient: Less than 30
--- NOTE | 2022-02-07 10:24 | CDI ---
Documentation Clarification Form Date: 02/07/2022 08:34:53 AM From: Gabriela House RN, CCDS Admit Date: 01/31/2022 05:35:00 AM Patient Name: Ac Munoz Visit Number: [id number] Discharge Date: ATTENTION: The Clinical Documentation Specialists (CDI) and [facility] Coding Staff appreciate your assistance in clarifying documentation. Please respond to the clarification below the line at the bottom and electronically sign. The CDI & [facility] Coding staff will review the response and follow-up if needed. Please note: Queries are made part of the Legal Health Record. If you have any questions, please contact the author of this message via ITS. Dr. Stan Carroll Acute hypoxic respiratory failure, post extubation requiring 15 L high flow nasal cannula is documented in the ongoing Internal medicine progress notes on 02/01/2022, and patient had aortic valve replacement on 01/31/2022. . Additional clarification is requested regarding the relationship, if any, that exists between the diagnosis and the procedure. Aortic valve replacement with Patients Admitting Diagnosis: Bicuspid calcific aortic stenosis/insufficiency Post-Operative Diagnosis: Same Procedure performed: Aortic valve replacement with a25 mm On-X mechanical valve, ligation of the left atrial appendage with a 35 mm Atricure clip, epi-aortic ultrasonography, patch closure of aortomtomy with bovine pericardium History/Risk Factors: Covid 19 (07/07), CAD, DM, Hypertension, PE, severe aortic stenosis, Sleep apnea Clinical Indicators: 51-year-old male with symptomatic bicuspid calcified aortic stenosis and insufficiency present for elective AVR. He was extubated to BiPAP, post procedure and on 02/01 was on high flow nasal cannula at 15 L/m. Chest x-ray with postoperative changes mostly atelectasis. Expected per pulmonary progress notes. 02/01 Vital signs (08:00)125/58 70 22, 98.6 92% on 15 L High Flow 02/01 (09:00 144/63 77 21 90 % on 15/L high Flow Treatment: ICU/Telemetry monitoring Incentive spirometry, Monitor oxygen Sat's and titrate Duoneb Inhalation QID Lasix 20 MG IV Once 02/01; 40 MG IV Once 02/02, LASIX 40 MG IV Q12 02/03-825 What relationship, if any, exists between the diagnosis of acute hypoxic respiratory failure post extubation and the procedure? [ ] Acute hypoxic respiratory failure post extubation is a complication of surgical procedure [ ] Acute hypoxic respiratory failure post extubation is an expected outcome of the surgical procedure [ ] Acute hypoxic respiratory failure post extubation is related to patients co-morbid condition(s) of [insert co-morbid dxs] & not a complication of the procedure [ x ] Other please specify ____ [ ] Unable to determine (Template Last Revised: August 2020) {Patient did NOT have respiratory failure. Oxygen requirements post op CABG for first few days is normal course. No complication. MTDD
--- NOTE | 2022-02-07 10:57 | CDI ---
Documentation Clarification Form Date: 02/07/2022 10:28:10 AM From: Gabriela House RN, CCDS Admit Date: 01/31/2022 05:35:00 AM Patient Name: Ac Munoz Visit Number: [id number] Discharge Date: ATTENTION: The Clinical Documentation Specialists (CDI) and [facility] Coding Staff appreciate your assistance in clarifying documentation. Please respond to the clarification below the line at the bottom and electronically sign. The CDI & [facility] Coding staff will review the response and follow-up if needed. Please note: Queries are made part of the Legal Health Record. If you have any questions, please contact the author of this message via ITS. Dr. Lazaro Sandy Your patient has the documented diagnosis of fluid overload causing heart failure in your progress note starting on 02/03/22. Additional information regarding the acuity of heart failure is requested. History/Risk Factors: Covid 19 (07/07), CAD, DM, Hypertension PE, severe aortic stenosis, Sleep apnea Clinical Indicators: 51-year-old male present for elective aortic valve replacement on 01/31/22. He has known severe aortic stenosis/aortic regurgitation and known to have coronary artery disease with prior RCA stenting. On 02/04/22 there is documentation of fluid overload, diminished breath sounds bilaterally and crackles bilaterally. He has mild bilateral lower extremity edema. 02/04 VS/Pulse OX: 138/87 86 23 94 % 95 % 4/L High flow 02/06 Echocardiogram Results: Moderately increased left ventricular wall thickness. EF is estimated at 50-55% Small pericardial effusion. 02/03 Chest X Ray: Bilateral interstitial airspace opacities, new from one day prior and my relate to interstitial edema with superimpose infection thought to be less likely. Post-surgical changes. Treatment: ICU/Telemetry monitoring Monitor kidney function and electrolytes Incentive spirometry, Monitor oxygen Sat's and titrate Duoneb Inhalation QID Lasix 20 MG IV Once 02/01; 40 MG IV Once 02/02, LASIX 40 MG IV Q12 02/03- Lopressor 30 MG PO BID In your professional opinion, can you please clarify the acuity of CHF if known? [ ] Acute Diastolic Heart Failure (preserved EF) [ ] Chronic Diastolic Heart Failure (preserved EF) [ ] Acute on Chronic Diastolic Heart Failure (preserved EF) [ ] Other, please specify [ ] Unable to determine (Template Last Revised: July 2020) MTDD
--- NOTE | 2022-02-07 11:19 | P.PN ---
Subjective Patient is sitting up comfortably in a chair. He did have some incisional chest discomfort last night Looks comfortable No breathing trouble On examination breath sounds are equal bilaterally S1 and S2 crisp normal White count 13.2 thousand, hemoglobin 12 Sodium 132 potassium 3.9 BUN 35 and creatinine 1.24 Impression Status post aortic valve replacement for aortic stenosis, bicuspid valve Hypertension Dyslipidemia For the sleep apnea using CPAP mask Coronary artery disease status post coronary stenting. Plan Continue current medications Continue oral amiodarone but short-term only Continue aspirin Continue atorvastatin intermittent continue beta blockers Continue IV Lasix Objective - Vital Signs Vital signs: Vital Signs Temp 97.8 F 02/07/22 08:00 Pulse 85 02/07/22 10:00 Resp 16 02/07/22 10:00 BP 122/68 02/07/22 10:00 Pulse Ox 92 L 02/07/22 10:00 FiO2 50 02/07/22 03:53 Intake & Output 02/06/22 02/07/22 02/07/22 18:59 06:59 18:59 Intake Total 400 300 Output Total 2400 3050 500 Balance -2400 -2650 -200 Weight 113.3 kg Intake: Oral 400 300 Output: Urine 2400 3050 500 Other: Voiding Method Urinal Urinal ABP, PAP, CO, CI - Last Documented Arterial Blood Pressure 102/63 Pulmonary Artery Pressure 27/10 Cardiac Output 5.5 Cardiac Index 2.5 - Labs CBC & Chem 7: 02/07/22 06:11 02/07/22 06:11 Labs: Abnormal Lab Results - Last 24 Hours (Table) 02/06/22 02/06/22 02/07/22 Range/Units 11:24 20:58 06:11 WBC 13.2 H (3.8-10.6) k/uL RBC 4.17 L (4.30-5.90) m/uL Hgb 12.0 L (13.0-17.5) gm/dL Hct 36.5 L (39.0-53.0) % PT (9.0-12.0) sec INR (<1.2) Sodium (137-145) mmol/L Chloride (98-107) mmol/L Carbon Dioxide (22-30) mmol/L BUN (9-20) mg/dL Glucose (74-99) mg/dL POC Glucose (mg/dL) 119 H 132 H (70-110) mg/dL 02/07/22 02/07/22 02/07/22 Range/Units 06:11 06:11 06:54 WBC (3.8-10.6) k/uL RBC (4.30-5.90) m/uL Hgb (13.0-17.5) gm/dL Hct (39.0-53.0) % PT 26.0 H (9.0-12.0) sec INR 2.6 H (<1.2) Sodium 132 L (137-145) mmol/L Chloride 90 L (98-107) mmol/L Carbon Dioxide 31 H (22-30) mmol/L BUN 35 H (9-20) mg/dL Glucose 107 H (74-99) mg/dL POC Glucose (mg/dL) 127 H (70-110) mg/dL
[2022-02-07 11:47] LABS: Glucose,Whole Blood 169 mg/dL (70-110)
--- NOTE | 2022-02-07 14:40 | P.PN ---
Subjective Progress Note Date: 02/07/22 - History of Present Illness 02/01/22 This is a 51-year-old gentleman with past medical history of CAD, DC, stenting of RCA ,PE on Eliquis, COPD, obstructive sleep apnea ,diabetes mellitus, gastroesophageal reflux disease, hypertension, hyperlipidemia, nicotine dependence, morbid obesity, Covid June 2021-continued to have progressive exertional shortness of breath, YASH reported normal LV function, moderate aortic stenosis with [id number] aortic regurgitation involving heavily calcified bicuspid aortic valve. Patient is status post Bicuspid calcified aortic stenosi s/insufficiency status post AVR, ligation of left atrial appendage, postop day #1, tolerated procedure well. Extubated last night and currently maintaining O2 sats in the 90s on 15 L high flow nasal cannula. Incentive spirometer 7-800. Complains of chest tube discomfort. Chest x-ray reporting postop changes, scattered pleural progression multiple PACs, most likely atelectasis. Afebrile, WBC 11.4, hemoglobin 12.4, platelets 164 creatinine increased to 1.23, blood sugars controlled on insulin drip. CO/CI 5.5/2.5. Transitioned to oral amiodarone. Telemetry sinus rhythm. 02/04/2022 diuresing well on IV push Lasix with 24-hour I&O reflecting a negative fluid balance, weight down 1.7 kg. sitting up in chair, reports pain better controlled. Minimal exertional shortness of breath, slept in the chair last night. Requiring 4 L nasal cannula O2 to maintain O2 sats in the 90s. Chest x-ray reporting multifocal airspace opacity's, suggestive of pulmonary edema, not significantly changed from prior.Creatinine 1.45. Blood sugars controlled. Sodium 132. INR elevated,7, repeated level 8.5. anticoagulated on Coumadin for mechanical aortic valve,continues on amiodarone for paroximal A. fi b, currently sinus rhythm. Afebrile, WBC 11.1. 02/05/2022 diuresing well, on Lasix IV push with 24-hour I&O reflecting a negative fluid balance, oxygen further weaned down to 2 L nasal cannula. Re ports IS up to 2000. Chest x-ray reporting improvement in bilateral interstitial opacity's from prior exam.Tachycardia, telemetry atrial fibrillation, received amiodarone in addition to beta milton. INR greater than 10, vitamin K ,platelets ordered as per cardiothoracic surgery. Tbili 0.5, AST 53, ALT 54, alk phos 77, Renal function improving. Diet intake 25% this am. Denies nausea or vomiting. Reports positive bowel movement this morning. Denies chills or sweats. 02/06/2022 required BiPAP for a couple hours during the night, currently maintaining O2 sats in the mid 90s on 3 L nasal cannula. Chest x-ray pending.Sinus rhythm. INR decreased to 1.7 today, post vitamin K yesterday. Re ports increased diet intake with no nausea or vomiting. Blood sugars controlled. BUN 39, creatinine 1.21 .Reports he ambulated yesterday, tolerating exertion well. 02/07/2022 significant clinical improvement. Oxygen weaned off, maintaining O2 sats 90-92%. Maintained on oral amiodarone, beta blockers, telemetry sinus rhythm. Transthoracic echo completed yesterday reporting limited study , moderately increased left ventricular wall thickness, EF estimated at 50-55%, paradoxical septal motion consistent with postoperative state, small pericardial effusion . INR 2.6. BUN 35, creatinine 1.24. Afebrile, WBC 13.2. Continues on Lasix IVP, 24-hour I&O reflecting a negative fluid balance. Chest x-ray reporting mild central vascular congestion with tiny bilateral pleural effusions, improving compared to prior exam. Reports he ambulated further yesterday, tolerating exertion well. Blood sugars controlled. Objective - Vital Signs Vital signs: Vital Signs Temp 97.9 F 02/07/22 13:00 Pulse 90 02/07/22 13:00 Resp 17 02/07/22 13:00 BP 121/84 02/07/22 13:00 Pulse Ox 92 L 02/07/22 13:00 FiO2 50 02/07/22 03:53 Intake & Output 02/06/22 02/07/22 02/07/22 18:59 06:59 18:59 Intake Total 400 300 Output Total 2400 3050 1600 Balance -2400 -2650 -1300 Weight 113.3 kg Intake: Oral 400 300 Output: Urine 2400 3050 1600 Other: Voiding Method Urinal Urinal Urinal ABP, PAP, CO, CI - Last Documented Arterial Blood Pressure 102/63 Pulmonary Artery Pressure 27/10 Cardiac Output 5.5 Cardiac Index 2.5 - Exam PHYSICAL EXAM: VITAL SIGNS: [As above] GENERAL: Sitting up in chair, no acute distress. HEENT: Conjunctivae normal. eyes normal. MMM. NECK: Supple, No JVD. CARDIOVASCULAR: S1, S2 regular. mechanical click, wearing heart hugger. RESPIRATION: Equal air entry, bilateral bases diminished. ABDOMEN: Soft, nontender . No guarding. no masses palpable.+BS LEGS: No edema. no swelling. PSYCHIATRY: Alert and oriented X3, mood and affect normal. NERVOUS SYSTEM: Cranial N 2-12 grossly normal.No focal deficits.Strength and sensation grossly intact. Skin: Warm and dry, no rash - Labs CBC & Chem 7: 02/07/22 06:11 02/07/22 06:11 Labs: Abnormal Lab Results - Last 24 Hours (Table) 02/06/22 02/07/22 02/07/22 Range/Units 20:58 06:11 06:11 WBC 13.2 H (3.8-10.6) k/uL RBC 4.17 L (4.30-5.90) m/uL Hgb 12.0 L (13.0-17.5) gm/dL Hct 36.5 L (39.0-53.0) % PT 26.0 H (9.0-12.0) sec INR 2.6 H (<1.2) Sodium (137-145) mmol/L Chloride (98-107) mmol/L Carbon Dioxide (22-30) mmol/L BUN (9-20) mg/dL Glucose (74-99) mg/dL POC Glucose (mg/dL) 132 H (70-110) mg/dL 02/07/22 02/07/22 02/07/22 Range/Units 06:11 06:54 11:43 WBC (3.8-10.6) k/uL RBC (4.30-5.90) m/uL Hgb (13.0-17.5) gm/dL Hct (39.0-53.0) % PT (9.0-12.0) sec INR (<1.2) Sodium 132 L (137-145) mmol/L Chloride 90 L (98-107) mmol/L Carbon Dioxide 31 H (22-30) mmol/L BUN 35 H (9-20) mg/dL Glucose 107 H (74-99) mg/dL POC Glucose (mg/dL) 127 H 169 H (70-110) mg/dL Assessment and Plan Assessment: Symptomatic Bicuspid calcified aortic stenosis and insufficiency status post AVR with mechanical valve, ligation of left atrial appendage Acute Hypoxic respiratory failure,post extubation, requiring 15 L high flow nasal cannula, improving, currently down to 4 L NC Atelactasis, postoperative, expected Postoperative paroxysmal atrial fibrillation, postop, expected outcome Hypercoagulopathy, on Coumadin, postop, status post vitamin K, resolved CAD, history of DC, stents History of COVID June 2021 COPD Obstructive sleep apnea, Diabetes mellitus hemoglobin A1c 6.4 Gastroesophageal reflux disease Hypertension Hyperlipidemia Nicotine dependence Morbid obesity, BMI 41.1 Plan: Continue on current medication regime ,monitoring and symptomatic treatment. Increase ambulation as tolerated. aggressive pulmonary toileting with nebulized bronchodilators, incentive spirometer reinforced. Patient reports he is probably being discharged tomorrow as per cardiothoracic surgery. Follow-up with PCP in one week. The impression and plan of care has been dictated as directed. : I performed a history and examination of this patient, discussed the same with the dictator. I agree with the dictator's note ,documented as a scribe. Any additional findings or plans will be noted.
[2022-02-07 17:55] LABS: Glucose,Whole Blood 141 mg/dL (70-110)
[2022-02-07] MEDS ORDERED: WARFARIN 1 MG TAB PO ONE (18:00)
[2022-02-07] MEDS: SENNOSIDES-DOCUSATE SODIUM 1 EACH TAB PO SCH (20:26)
[2022-02-07] MEDS: MELATONIN 3 MG TABLET PO SCH (20:27)
[2022-02-07] MEDS: ATORVASTATIN 80 MG TAB PO SCH (20:28)
[2022-02-07 20:39] LABS: Glucose,Whole Blood 154 mg/dL (70-110)
[2022-02-08 06:16] LABS: Glucose,Whole Blood 128 mg/dL (70-110)
[2022-02-08] MEDS: INSULIN ASPART (NovoLOG) 100 UNIT/ML VIAL SQ SCH ×4 (06:52→21:55)
[2022-02-08] MEDS: INSULIN DETEMIR (LEVEMIR) 100 UNIT/ML SYR SQ SCH (06:55)
[2022-02-08] MEDS: PANTOPRAZOLE 40 MG TABLET PO SCH (06:55)
[2022-02-08] MEDS: IPRATROPIUM-ALBUTEROL 3 ML NEB INHALATION SCH ×4 (07:59→20:13)
[2022-02-08] MEDS: SYMBICORT 80-4.5 MCG INHALER INHALATION SCH ×2 (07:59→20:13)
[2022-02-08 08:41] LABS: Basophils # (A) 0.1 k/uL (0-0.2); Basophils % (A) 1 %; Eosinophils # (A) 0.5 k/uL (0-0.7); Eosinophils % (A) 4 %; HCT 38.5 % (39.0-53.0); HGB 12.5 gm/dL (13.0-17.5); Hypochromasia Slight; Lymphocytes # (A) 2.5 k/uL (1.0-4.8); Lymphocytes % (A) 20 %; MCH 28.7 pg (25.0-35.0); MCHC 32.5 g/dL (31.0-37.0); MCV 88.4 fL (80.0-100.0); Monocytes # (A) 0.7 k/uL (0-1.0); Monocytes % (A) 5 %; Neutrophils # (A) 8.6 k/uL (1.3-7.7); Neutrophils % (A) 69 %; Platelet Count 303 k/uL (150-450); RBC 4.35 m/uL (4.30-5.90); RDW 14.2 % (11.5-15.5); WBC 12.5 k/uL (3.8-10.6)
[2022-02-08 08:51] LABS: Calcium 9.1 mg/dL (8.4-10.2); Potassium 4.1 mmol/L (3.5-5.1)
[2022-02-08 08:58] LABS: INR 3.4 (<1.2); Prothrombin Time 34.3 sec (9.0-12.0)
--- NOTE | 2022-02-08 09:09 | XR ---
EXAMINATION TYPE: XR chest 1V portable DATE OF EXAM: 02/08/2022 6:33 AM COMPARISON: Chest radiographs from 02/07/2022 TECHNIQUE: XR chest 1V portable Portable AP radiograph of the chest. CLINICAL INDICATION:Male, 51 years old with history of Postoperative cardiac surgery; FINDINGS: Lungs/Pleura: There is no evidence of pleural effusion, focal consolidation, or pneumothorax. Pulmonary vascularity: Mild pulmonary vascular congestion. Heart/mediastinum: Cardiomediastinal silhouette is enlarged and stable. Musculoskeletal: No acute osseous pathology. Midline sternotomy wires are noted. IMPRESSION: Cardiomegaly with stable mild pulmonary vascular congestion suggested.
[2022-02-08] MEDS ORDERED: metOLazone 2.5 MG TAB PO SCH (09:30)
--- NOTE | 2022-02-08 09:42 | P.PN ---
Subjective Progress Note Date: 02/08/22 Principal diagnosis: Bicuspid calcific aortic stenosis/insufficiency. Past medical history significant for hypertension, hyperlipidemia, COPD, obstructive sleep apnea without home CPAP use, COVID-19 in June 2021, coronary artery disease with history of stent placement to his right coronary artery in 2018, occasional tobacco use smokes an occasional cigar, family history of coronary artery disease with his father having a myocardial infarction, chronic lower back pain and history of pulmonary embolus in which he was on Eliquis for anticoagulation. POD #8 aortic valve replacement with a 25 mm On-X mechanical valve, ligation of the left atrial appendage with a 35 mm Atricure clip, it aortic ultrasonography, patch closure of aortotomy with bovine pericardium area Postoperative acute blood loss anemia, expected given hemodilution and no pulmonary bypass. Postoperative paroxysmal atrial fibrillation, a known, recurrent after cardiac surgery. Patient was seen and examined today 02/08/2022 at his bedside on the cardiac stepdown unit. Currently he is sitting up to the bedside chair, is awake, alert, oriented 3 and is in no acute apparent distress. Denies any complaints of pain or shortness of breath at this time and reports that he had a decent sleep throughout the night. Oxygen saturations are 94% on room air and he is achieving 2000 mL on incentive spirometry with much encouragement. He reports he has been up ambulating in the cardiac step down in the hallway with standby assistance from nursing and therapy staff and has been tolerating well. Remote telemetry is showing normal sinus rhythm heart rate 85 BPM. No further episodes of atrial fibrillation reported. The patient does report that he did wear his BiPAP throughout the night with settings of 12/5, rate of 12 and FiO2 50%. Laboratory results morning show a WBC count of 12.5, hemoglobin 12.5, hematocrit 30.5, platelets 303, sodium 132, potassium 4.1, BUN 33, creatinine 1.27, glucose 110. His PT is 34.3 and INR is 3.4 today, he was given 1 dose of Coumadin 1 mg by mouth yesterday for an INR of 2.6. No Coumadin will be given today. He remains on Lasix 40 mg IV daily and Zaroxolyn 2.5 mg by mouth 1 yesterday, his urine output in the last 8 hours is 1.2 L. Discharge planning is in place, although his has COVID-19, so he is looking for an alternative place to stay while she is quarantining at home. Objective - Vital Signs Vital signs: Vital Signs Temp 98.0 F 02/08/22 04:00 Pulse 92 02/08/22 08:10 Resp 14 02/08/22 04:00 BP 135/74 02/08/22 04:00 Pulse Ox 93 L 02/08/22 04:30 FiO2 21 02/08/22 04:30 Intake & Output 02/07/22 02/08/22 02/08/22 18:59 06:59 18:59 Intake Total 600 600 Output Total 1850 1200 Balance -1250 -1200 600 Weight 112.9 kg Intake: Oral 600 600 Output: Urine 1850 1200 Other: Voiding Method Urinal Urinal # Voids 1 # Bowel Movements 1 ABP, PAP, CO, CI - Last Documented Arterial Blood Pressure 102/63 Pulmonary Artery Pressure 27/10 Cardiac Output 5.5 Cardiac Index 2.5 - Exam CONSTITUTIONAL: Sitting up to the bedside chair on the cardiac stepdown unit, appears comfortable, cooperative, no apparent acute distress. HEENT: Neck is supple, no JVD, no lymphadenopathy. RESPIRATORY: Lungs sounds essentially clear throughout, diminished to his bilateral bases. Respirations are symmetrical and nonlabored. Currently on room air with oxygen saturations 94%. Able to achieve 2000 mL on his incentive spirometry. Strong cough. CARDIOVASCULAR: Regular rhythm and rate. S1 and S2 present with mechanical valvular click, negative for S3, gallop or murmur. Sternum is stable. Palpable peripheral pulses bilaterally, trace edema to his bilateral lower extremities. No calf pain or tenderness noted. Heart hugger in place with patient demonstrating appropriate use. Knee-high MICHELLE hose and sequential compression devices in place to his bilateral lower extremities. Remote telemetry showing normal sinus rhythm with a heart rate of 85 bpm. GASTROINTESTINAL: Abdomen soft, nontender, nondistended. Active bowel sounds present 4 quadrants. Tolerating diet. Passing flatus. No guarding or rigidity. Bowel movement 02/05/2022. GENITOURINARY: Continues to void. Urine output 1200 mL in the last 8 hours. INTEGUMENTARY: Skin is warm and dry with no evidence of clubbing or cyanosis. Midline sternal incision clean dry and well approximated, covered with dry intact dressing. NEUROLOGIC: Cranial nerves II through XII intact. No focal deficits. MUSKULOSKELETAL: Able to move all extremities, strength equal bilaterally. PSYCHIATRIC: Alert and oriented to person place and time, appropriate affect, intact judgment and insight. - Allied health notes Allied health notes reviewed: nursing - Labs CBC & Chem 7: 02/08/22 07:50 02/08/22 07:50 Labs: Abnormal Lab Results - Last 24 Hours (Table) 02/07/22 02/07/22 02/07/22 Range/Units 11:43 17:54 20:37 WBC (3.8-10.6) k/uL Hgb (13.0-17.5) gm/dL Hct (39.0-53.0) % Neutrophils # (1.3-7.7) k/uL PT (9.0-12.0) sec INR (<1.2) Sodium (137-145) mmol/L Chloride (98-107) mmol/L BUN (9-20) mg/dL Creatinine (0.66-1.25) mg/dL Glucose (74-99) mg/dL POC Glucose (mg/dL) 169 H 141 H 154 H (70-110) mg/dL 02/08/22 02/08/22 02/08/22 Range/Units 06:14 07:50 07:50 WBC 12.5 H (3.8-10.6) k/uL Hgb 12.5 L (13.0-17.5) gm/dL Hct 38.5 L (39.0-53.0) % Neutrophils # 8.6 H (1.3-7.7) k/uL PT (9.0-12.0) sec INR (<1.2) Sodium 132 L (137-145) mmol/L Chloride 93 L (98-107) mmol/L BUN 33 H (9-20) mg/dL Creatinine 1.27 H (0.66-1.25) mg/dL Glucose 110 H (74-99) mg/dL POC Glucose (mg/dL) 128 H (70-110) mg/dL 02/08/22 Range/Units 07:50 WBC (3.8-10.6) k/uL Hgb (13.0-17.5) gm/dL Hct (39.0-53.0) % Neutrophils # (1.3-7.7) k/uL PT 34.3 H (9.0-12.0) sec INR 3.4 H (<1.2) Sodium (137-145) mmol/L Chloride (98-107) mmol/L BUN (9-20) mg/dL Creatinine (0.66-1.25) mg/dL Glucose (74-99) mg/dL POC Glucose (mg/dL) (70-110) mg/dL - Imaging and Cardiology Chest x-ray: report reviewed, image reviewed Assessment and Plan Assessment: 1. Bicuspid calcific aortic stenosis/insufficiency, status post aortic valve replacement with 25 mm On-X mechanical valve 2. Coronary artery disease status post stent placement to his right coronary artery in 2018 3. History of Hypertension 4. History of Hyperlipidemia, on atorvastatin 80 mg by mouth daily at bedtime on an outpatient basis 5. History of pulmonary embolus, was on Eliquis for anticoagulation on an outpatient basis 6. Chronic obstructive pulmonary disease, with a preoperative FEV1 57% of predicted value with a base of 2.01 L 7. Severe symptomatic obstructive sleep apnea, currently does not use CPAP therapy at home 8. Chronic ongoing tobacco dependence, smokes an occasional cigar 9. History of COVID-19 in June 2021 10. Morbid obesity with a BMI of 41.1 kg/m 11. Borderline diabetes mellitus type 2 with a preoperative hemoglobin A1c of 6.4%, diet-controlled 12. Family history of coronary artery disease with his father having a myocardial infarction at age 48 13. Postoperative acute blood loss anemia, expected given hemodilution and cardiopulmonary bypass 14. Acute kidney injury, possibly secondary to hypotension 15. Postoperative paroxysmal atrial fibrillation, a known common occurrence after cardiac surgery Plan: 1. Continue to maximize medical therapy with low-dose aspirin, statin, and beta milton. Will increase metoprolol tartrate as tolerated. 2. Continue amiodarone to 200 mg by mouth twice a day. 3. Encourage incentive spirometry 10 times every hour while awake. Bronchodilators per pulmonology/critical care medicine. Continue Symbicort 804 0.5 g 2 puffs twice a day. BiPAP management per pulmonary/critical care recommendations. 4. Increase activity, ambulate as tolerated. PT/OT/cardiac rehab following. 5. Will monitor daily labs and chest x-rays. Electrolyte replacement per protocol. 6. GI and DVT prophylaxis. 7. Pain control with current medication regimen. Avoid nephrotoxic agents. 8. Insulin management per primary care service. Borderline diabetic with a preoperative hemoglobin A1c 6.4%. 9. INR is 3.4 today and no Coumadin will be given today. Continue to monitor daily PT and INR with goal INR for first 3 months 2-3, after 3 months goal INR 1.5-2. Continue to monitor daily PT and INR. Patient has an On-X mechanical aortic valve. 10. Continue to monitor BUN and creatinine. BUN 33 and creatinine 1.27 today. 11. Continue to record strict accurate intake and output. Daily weights. 12. The importance of risk modification including smoking cessation have been discussed with the patient. Smoking cessation education and counseling was provided, patient was strongly encouraged to quit smoking. 13. Shower daily. 14. Continue Lasix 40 mg IV daily, and potassium chloride 20 mEq by mouth daily while on Lasix. He has been placed on a 1500 mL fluid restriction daily. 15. Zaroxolyn 2.5 mg by mouth 1 now. 16. Discharge planning is in place and will be followed with [facility] home health care. 17. More recommendations to follow based on patient's clinical course. Time with Patient: Greater than 30
[2022-02-08] MEDS: AMIODARONE 200 MG TAB PO SCH ×2 (09:54→21:55)
[2022-02-08] MEDS: POTASSIUM CHLORIDE ER 20 MEQ TAB.ER PO SCH ×2 (09:54→09:55)
[2022-02-08] MEDS: METOPROLOL TARTRATE 50 MG TAB PO SCH ×2 (09:55→21:55)
[2022-02-08] MEDS: FUROSEMIDE 10 MG/ML 4 ML VIAL IV SCH (09:55)
[2022-02-08] MEDS: ASPIRIN 81 MG PO SCH (09:55)
[2022-02-08] MEDS: ACETAMINOPHEN TAB 325 MG TAB PO PRN (10:01)
[2022-02-08 12:04] LABS: Glucose,Whole Blood 122 mg/dL (70-110)
--- NOTE | 2022-02-08 12:46 | P.PN ---
Subjective Patient is a pleasant 51-year-old male with history of tobacco abuse, CAD status post stenting of the RCA in 2019, COPD, CONNIE, borderline diabetes mellitus type 2, hypertension, chronic nicotine dependence, history of pulmonary embolism on Eliquis, bicuspid valve with moderate to severe aortic stenosis and moderate aortic insufficiency. He follows with Dr. Jin. He has had progressive dyspnea since June attributed to the aortic valve and therefore evaluated for valve surgery. Heart catheterization showed mild disease of the proximal RCA and a patent stent in the mid RCA. He underwent aortic valve replacement 01/31/2022 with a 25 mm On-X mechanical valve, ligation of the left atrial appendage. 02/08/2022 Patient seen and examined at bedside, in the bedside chair. No acute distress. He denies any chest pain, shortness of breath, palpitations. He is alert and oriented x 3. Vitals signs are stable. Maintaining sinus mechanism on telemetry. Labs: INR 3.4, hemoglobin 12.5, WBC 12.5, sodium 132, potassium 4.1, BUN 33, serum creatinine 1.2 PHYSICAL EXAMINATION Vital signs reviewed. CONSTITUTIONAL: No apparent distress. HEENT: Neck Supple. No JVD. CHEST EXAMINATION: Lungs are clear to auscultation. No chest wall tenderness is noted on palpation or with deep breathing. HEART EXAMINATION: Regular rate and rhythm. S1, S2 heard. No murmurs, gallops or rub. ABDOMEN: Soft, nontender. Positive bowel sounds. EXTREMITIES: 2+ peripheral pulses, no lower extremity edema and no calf tenderness. NEUROLOGIC EXAMINATION: Patient is awake, alert and oriented x3. ASSESSMENT Bicuspid Aortic stenosis and aortic insufficiency status post On-X mechanical aortic valve 01/31 Postoperative paroxysmal atrial fibrillation Postoperative acute blood loss anemia Hypertension CAD with prior history of PCI RCA in 2019, with only mild disease by recent heart catheterization Borderline diabetes mellitus 2 COPD Obstructive sleep apnea Chronic nicotine dependence History of pulmonary embolism on Eliquis outpatient PLAN Continue supportive care Patient on coumadin, on hold today secondary to INR 3.4. Continue aspirin, statin, beta milton Continue PO amiodarone but short-term only Post operative management per CT Surgery Continue incentive spirometery Increase activity as tolerated Smoking cessation discussed and highly recommended Further recommendations based on clinical course Patient to follow up with Dr. Jin at an outpatient Nurse practitioner note has been reviewed by physician. Signing provider agrees with the documented findings, assessment, and plan of care. Objective - Vital Signs Vital signs: Vital Signs Temp 98.1 F 02/08/22 09:52 Pulse 88 02/08/22 11:53 Resp 18 02/08/22 09:52 BP 116/64 02/08/22 09:52 Pulse Ox 95 02/08/22 09:52 FiO2 21 02/08/22 04:30 Intake & Output 02/07/22 02/08/22 02/08/22 18:59 06:59 18:59 Intake Total 600 600 Output Total 1850 1200 Balance -1250 -1200 600 Weight 112.9 kg Intake: Oral 600 600 Output: Urine 1850 1200 Other: Voiding Method Urinal Urinal # Voids 1 # Bowel Movements 1 ABP, PAP, CO, CI - Last Documented Arterial Blood Pressure 102/63 Pulmonary Artery Pressure 27/10 Cardiac Output 5.5 Cardiac Index 2.5 - Labs CBC & Chem 7: 02/08/22 07:50 02/08/22 07:50 Labs: Abnormal Lab Results - Last 24 Hours (Table) 02/07/22 02/07/22 02/08/22 Range/Units 17:54 20:37 06:14 WBC (3.8-10.6) k/uL Hgb (13.0-17.5) gm/dL Hct (39.0-53.0) % Neutrophils # (1.3-7.7) k/uL PT (9.0-12.0) sec INR (<1.2) Sodium (137-145) mmol/L Chloride (98-107) mmol/L BUN (9-20) mg/dL Creatinine (0.66-1.25) mg/dL Glucose (74-99) mg/dL POC Glucose (mg/dL) 141 H 154 H 128 H (70-110) mg/dL 02/08/22 02/08/22 02/08/22 Range/Units 07:50 07:50 07:50 WBC 12.5 H (3.8-10.6) k/uL Hgb 12.5 L (13.0-17.5) gm/dL Hct 38.5 L (39.0-53.0) % Neutrophils # 8.6 H (1.3-7.7) k/uL PT 34.3 H (9.0-12.0) sec INR 3.4 H (<1.2) Sodium 132 L (137-145) mmol/L Chloride 93 L (98-107) mmol/L BUN 33 H (9-20) mg/dL Creatinine 1.27 H (0.66-1.25) mg/dL Glucose 110 H (74-99) mg/dL POC Glucose (mg/dL) (70-110) mg/dL 02/08/22 Range/Units 11:56 WBC (3.8-10.6) k/uL Hgb (13.0-17.5) gm/dL Hct (39.0-53.0) % Neutrophils # (1.3-7.7) k/uL PT (9.0-12.0) sec INR (<1.2) Sodium (137-145) mmol/L Chloride (98-107) mmol/L BUN (9-20) mg/dL Creatinine (0.66-1.25) mg/dL Glucose (74-99) mg/dL POC Glucose (mg/dL) 122 H (70-110) mg/dL
--- NOTE | 2022-02-08 13:01 | P.PN ---
Subjective Progress Note Date: 02/08/22 Patient was reevaluated today on 02/01/22, patient was successfully extubated at 6:15 p.m. last evening. Initially extubated to BiPAP, and he is now on high flow nasal cannula at 15 L/m. Doing fairly well with incentive spirometry achieving about 1000 mL. Patient continues to have some pain from his chest tube, and he continues to have right IJ Bryant-Charisma catheter and Cordis in place. He is hemodynamically stable, cardiac output is 5.5 and cardiac index is 2.5 his PA pressure 28/13 and CVP is 14. Remains on amiodarone drip at 0.5 mg/m as per protocol. Chest x-ray showed mostly postoperative changes, and scattered pleural parenchymal opacities reflecting mostly atelectasis. Expected. W scan is 13.7 hemoglobin 8.2, basic metabolic profile is normal creatinine is up to 1.23 today, was 1.06 yesterday. Blood sugars were 35 rest of the metabolic panel is normal Reevaluated today on 02/02/22, remains in the ICU, he is presently on BiPAP with IPAP of 14/6/60% O2 saturation is in the mid 90s. He is on IV fluid to KVO. He is postoperative day #2 doing fairly well, he is relatively asymptomatic, improving with his incentive spirometer. Nonetheless his O2 saturation remains marginal on 60% FiO2. Chest x-ray showed postsurgical changes no evidence of active disease noted. Left hemidiaphragm seems to be elevated Reevaluated today on 02/03/22, patient remains in the ICU, sitting up in the bedside chair, awake, alert oriented 3, in no distress. Patient seems to be doing great. However he remains on 15 L high flow nasal cannula and his chest x-ray is showing evidence of interstitial edema hence I'm recommending a dose of Lasix 40 mg IV push today. His bedside telemetry showing atrial fibrillation rate of 93/m, patient is on metoprolol is also on amiodarone orally. He received 2 boluses of amiodarone 150 mg IV piggyback. Overall the patient is doing well otherwise. WBC count 16.8 hemoglobin is 11.5. Electrolytes are normal BUN is 41 and creatinine 1.59 Progress note dated 02/04/2022. Postop day #4, status post aortic valve replacement for aortic stenosis. The patient had a mechanical valve placed. He is currently on 4 L nasal O2. He's not receiving any IV fluids. His INR this morning was 8.5. Coumadin is on hold. White count 11.1, hemoglobin 10.8, normal platelet count. Sodium 132, potassium 3.8, chlorides 96, CO2 25, BUN 44, creatinine 1.45. Chest x-ray shows diffuse bilateral infiltrates, likely related to fluid overload/CHF. Progress note dated 02/05/2022. Postop day #5, status post aortic valve replacement for aortic stenosis. The patient is again seen in the intensive care unit, room 265. Currently, he's on 3 L nasal cannula. He did have some atrial fibrillation last night, and was given some amiodarone. He's not receiving any IV fluids. He seems to be relatively stable this morning. Morning labs are currently pending. Morning c hest x-ray is currently pending as well. Progress note dated 02/06/2022. Postop day #6, status post aortic valve replacement for aortic stenosis. The patient remains on 3 L nasal cannula. He did use BiPAP last night for only 1.5 hours. Not receiving any IV fluids. BiPAP settings were 14/5 and 50%. The patient's INR was elevated, and he did receive vitamin K yesterday. Clinically, he looks reasonably stable. Labs today include a white count 10.3, hemoglobin 10.9, hematocrit 33, platelet count 228,000. PT/INR was 17.3 and 1.7 respectively. That's in the near therapeutic range. Sodium 131, potassium 4, chlorides 94, CO2 27, BUN 39, creatinine 1.21. Calcium is 8.2. Chest x-ray has not yet been done. Progress note dated 02/07/2022. 51-year-old male, postop day #7, status post aortic valve replacement for aortic stenosis. Currently, he's on room air. He's not receiving any IV fluids. He did use BiPAP for 4 hours last night, with settings of 12/5 and 50%. He appears to be doing much better today. White count 13.2, hemoglobin 12, hematocrit 36.5, and platelet count 292,000. His INR is 2.6. Sodium 132, potassium 3.9, chlorides 90, CO2 31, BUN 35, and creatinine 1.25. Chest x-ray shows improving fluid overload. The patient is seen today 02/08/2022 in follow-up on the selective care unit. Postoperative day #8 of aortic valve replacement for aortic stenosis. He s itting up in a chair at the bedside. Awake and alert in no acute distress. Continue O2 saturations in the 90s on room air. He's afebrile. Hemodynamically stable. Chest x-ray reveals cardiomegaly with stable mild pulmonary vascular congestion. White count 12.5. Hemoglobin 12.5. INR 3.4. Sodium 132. Potassium 4.1. BUN 33. Creatinine 1.27. Glucose 110. He remains on DuoNeb inhalations, Symbicort, IV diuretics. Warfarin for anticoagulation. Objective - Vital Signs Vital signs: Vital Signs Temp 98.2 F 02/08/22 12:00 Pulse 86 02/08/22 12:00 Resp 18 02/08/22 12:00 BP 115/66 02/08/22 12:00 Pulse Ox 96 02/08/22 12:00 FiO2 21 02/08/22 04:30 Intake & Output 02/07/22 02/08/22 02/08/22 18:59 06:59 18:59 Intake Total 600 600 Output Total 1850 1200 Balance -1250 -1200 600 Weight 112.9 kg Intake: Oral 600 600 Output: Urine 1850 1200 Other: Voiding Method Urinal Urinal # Voids 1 # Bowel Movements 1 ABP, PAP, CO, CI - Last Documented Arterial Blood Pressure 102/63 Pulmonary Artery Pressure 27/10 Cardiac Output 5.5 Cardiac Index 2.5 - Exam GENERAL EXAM: Alert, pleasant 51-year-old male patient, on room air, comfortable in no apparent distress. HEAD: Normocephalic. EYES: Normal reaction of pupils, equal size. NOSE: Clear with pink turbinates. THROAT: No erythema or exudates. NECK: No masses, no JVD. CHEST: Heart hugger place. Incision clean dry well approximated LUNGS: Equal air entry with faint crackles in the posterior bases. CVS: S1 and S2 normal with no audible murmur, regular rhythm. ABDOMEN: No hepatosplenomegaly, normal bowel sounds, no guarding or rigidity. SPINE: No scoliosis or deformity SKIN: No rashes CENTRAL NERVOUS SYSTEM: No focal deficits, tone is normal in all 4 extremities. EXTREMITIES: There is no peripheral edema. No clubbing, no cyanosis. Peripheral pulses are intact. - Labs CBC & Chem 7: 02/08/22 07:50 02/08/22 07:50 Labs: Abnormal Lab Results - Last 24 Hours (Table) 02/07/22 02/07/22 02/08/22 Range/Units 17:54 20:37 06:14 WBC (3.8-10.6) k/uL Hgb (13.0-17.5) gm/dL Hct (39.0-53.0) % Neutrophils # (1.3-7.7) k/uL PT (9.0-12.0) sec INR (<1.2) Sodium (137-145) mmol/L Chloride (98-107) mmol/L BUN (9-20) mg/dL Creatinine (0.66-1.25) mg/dL Glucose (74-99) mg/dL POC Glucose (mg/dL) 141 H 154 H 128 H (70-110) mg/dL 02/08/22 02/08/22 02/08/22 Range/Units 07:50 07:50 07:50 WBC 12.5 H (3.8-10.6) k/uL Hgb 12.5 L (13.0-17.5) gm/dL Hct 38.5 L (39.0-53.0) % Neutrophils # 8.6 H (1.3-7.7) k/uL PT 34.3 H (9.0-12.0) sec INR 3.4 H (<1.2) Sodium 132 L (137-145) mmol/L Chloride 93 L (98-107) mmol/L BUN 33 H (9-20) mg/dL Creatinine 1.27 H (0.66-1.25) mg/dL Glucose 110 H (74-99) mg/dL POC Glucose (mg/dL) (70-110) mg/dL 02/08/22 Range/Units 11:56 WBC (3.8-10.6) k/uL Hgb (13.0-17.5) gm/dL Hct (39.0-53.0) % Neutrophils # (1.3-7.7) k/uL PT (9.0-12.0) sec INR (<1.2) Sodium (137-145) mmol/L Chloride (98-107) mmol/L BUN (9-20) mg/dL Creatinine (0.66-1.25) mg/dL Glucose (74-99) mg/dL POC Glucose (mg/dL) 122 H (70-110) mg/dL Assessment and Plan Assessment: Postop day #8, status post aortic valve replacement, with mechanical valve, for aortic stenosis. Bicuspid aortic valve, with aortic stenosis/insufficiency. Routine postoperative ventilator management. Postoperative atrial fibrillation. Hypertension. History of pulmonary embolism. 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 Severe obstructive sleep apnea syndrome, with an apnea/hypoxia index of 60. Obesity. History of coronavirus infection, June 2021. Type 2 diabetes mellitus. Family history of CAD. Plan: The patient was seen and evaluated Stable and on room air Anticoagulated with warfarin Home once cleared by cardiothoracic services We will see as needed I have personally seen and examined the patient, performed the documentation and the assessment and plan as written. Number of minutes spent on the visit: 10.
--- NOTE | 2022-02-08 14:30 | P.PN ---
Subjective Progress Note Date: 02/08/22 - History of Present Illness 02/01/22 This is a 51-year-old gentleman with past medical history of CAD, MO, stenting of RCA ,PE on Eliquis, COPD, obstructive sleep apnea ,diabetes mellitus, gastroesophageal reflux disease, hypertension, hyperlipidemia, nicotine dependence, morbid obesity, Covid June 2021-continued to have progressive exertional shortness of breath, YASH reported normal LV function, moderate aortic stenosis with [id number] aortic regurgitation involving heavily calcified bicuspid aortic valve. Patient is status post Bicuspid calcified aortic stenosi s/insufficiency status post AVR, ligation of left atrial appendage, postop day #1, tolerated procedure well. Extubated last night and currently maintaining O2 sats in the 90s on 15 L high flow nasal cannula. Incentive spirometer 7-800. Complains of chest tube discomfort. Chest x-ray reporting postop changes, scattered pleural progression multiple PACs, most likely atelectasis. Afebrile, WBC 11.4, hemoglobin 12.4, platelets 164 creatinine increased to 1.23, blood sugars controlled on insulin drip. CO/CI 5.5/2.5. Transitioned to oral amiodarone. Telemetry sinus rhythm. 02/04/2022 diuresing well on IV push Lasix with 24-hour I&O reflecting a negative fluid balance, weight down 1.7 kg. sitting up in chair, reports pain better controlled. Minimal exertional shortness of breath, slept in the chair last night. Requiring 4 L nasal cannula O2 to maintain O2 sats in the 90s. Chest x-ray reporting multifocal airspace opacity's, suggestive of pulmonary edema, not significantly changed from prior.Creatinine 1.45. Blood sugars controlled. Sodium 132. INR elevated,7, repeated level 8.5. anticoagulated on Coumadin for mechanical aortic valve,continues on amiodarone for paroximal A. fi b, currently sinus rhythm. Afebrile, WBC 11.1. 02/05/2022 diuresing well, on Lasix IV push with 24-hour I&O reflecting a negative fluid balance, oxygen further weaned down to 2 L nasal cannula. Re ports IS up to 2000. Chest x-ray reporting improvement in bilateral interstitial opacity's from prior exam.Tachycardia, telemetry atrial fibrillation, received amiodarone in addition to beta milton. INR greater than 10, vitamin K ,platelets ordered as per cardiothoracic surgery. Tbili 0.5, AST 53, ALT 54, alk phos 77, Renal function improving. Diet intake 25% this am. Denies nausea or vomiting. Reports positive bowel movement this morning. Denies chills or sweats. 02/06/2022 required BiPAP for a couple hours during the night, currently maintaining O2 sats in the mid 90s on 3 L nasal cannula. Chest x-ray pending.Sinus rhythm. INR decreased to 1.7 today, post vitamin K yesterday. Re ports increased diet intake with no nausea or vomiting. Blood sugars controlled. BUN 39, creatinine 1.21 .Reports he ambulated yesterday, tolerating exertion well. 02/07/2022 significant clinical improvement. Oxygen weaned off, maintaining O2 sats 90-92%. Maintained on oral amiodarone, beta blockers, telemetry sinus rhythm. Transthoracic echo completed yesterday reporting limited study , moderately increased left ventricular wall thickness, EF estimated at 50-55%, paradoxical septal motion consistent with postoperative state, small pericardial effusion . INR 2.6. BUN 35, creatinine 1.24. Afebrile, WBC 13.2. Continues on Lasix IVP, 24-hour I&O reflecting a negative fluid balance. Chest x-ray reporting mild central vascular congestion with tiny bilateral pleural effusions, improving compared to prior exam. Reports he ambulated further yesterday, tolerating exertion well. Blood sugars controlled. 02/08/22 transferred out of ICU yesterday afternoon. Telemetry sinus rhythm, maintaining O2 sats in the 90s on room air. INR 3.4, Coumadin on hold for today. Creatinine 1.27. Blood sugars controlled. Afebrile, WBC 12.5. Chest x- ray reporting cardiomegaly with stable mild pulmonary vascular congestion. Objective - Vital Signs Vital signs: Vital Signs Temp 98.1 F 02/08/22 09:52 Pulse 96 02/08/22 09:52 Resp 18 02/08/22 09:52 BP 116/64 02/08/22 09:52 Pulse Ox 95 02/08/22 09:52 FiO2 21 02/08/22 04:30 Intake & Output 02/07/22 02/08/22 02/08/22 18:59 06:59 18:59 Intake Total 600 600 Output Total 1850 1200 Balance -1250 -1200 600 Weight 112.9 kg Intake: Oral 600 600 Output: Urine 1850 1200 Other: Voiding Method Urinal Urinal # Voids 1 # Bowel Movements 1 ABP, PAP, CO, CI - Last Documented Arterial Blood Pressure 102/63 Pulmonary Artery Pressure 27/10 Cardiac Output 5.5 Cardiac Index 2.5 - Exam PHYSICAL EXAM: VITAL SIGNS: [As above] GENERAL: Alert and oriented 3, Sitting up in chair, no acute distress. HEENT: Conjunctivae normal. eyes normal. MMM. NECK: Supple, No JVD. CARDIOVASCULAR: S1, S2 regular. mechanical click, wearing heart hugger. RESPIRATION: Equal air entry, bilateral bases diminished. ABDOMEN: Soft, nontender . No guarding. no masses palpable.+BS LEGS: No edema. no swelling. NERVOUS SYSTEM: Cranial N 2-12 grossly normal.No focal deficits.Strength and sensation grossly intact. Skin: Warm and dry, no rash - Labs CBC & Chem 7: 02/08/22 07:50 02/08/22 07:50 Labs: Abnormal Lab Results - Last 24 Hours (Table) 02/07/22 02/07/22 02/07/22 Range/Units 11:43 17:54 20:37 WBC (3.8-10.6) k/uL Hgb (13.0-17.5) gm/dL Hct (39.0-53.0) % Neutrophils # (1.3-7.7) k/uL PT (9.0-12.0) sec INR (<1.2) Sodium (137-145) mmol/L Chloride (98-107) mmol/L BUN (9-20) mg/dL Creatinine (0.66-1.25) mg/dL Glucose (74-99) mg/dL POC Glucose (mg/dL) 169 H 141 H 154 H (70-110) mg/dL 02/08/22 02/08/22 02/08/22 Range/Units 06:14 07:50 07:50 WBC 12.5 H (3.8-10.6) k/uL Hgb 12.5 L (13.0-17.5) gm/dL Hct 38.5 L (39.0-53.0) % Neutrophils # 8.6 H (1.3-7.7) k/uL PT (9.0-12.0) sec INR (<1.2) Sodium 132 L (137-145) mmol/L Chloride 93 L (98-107) mmol/L BUN 33 H (9-20) mg/dL Creatinine 1.27 H (0.66-1.25) mg/dL Glucose 110 H (74-99) mg/dL POC Glucose (mg/dL) 128 H (70-110) mg/dL 02/08/22 Range/Units 07:50 WBC (3.8-10.6) k/uL Hgb (13.0-17.5) gm/dL Hct (39.0-53.0) % Neutrophils # (1.3-7.7) k/uL PT 34.3 H (9.0-12.0) sec INR 3.4 H (<1.2) Sodium (137-145) mmol/L Chloride (98-107) mmol/L BUN (9-20) mg/dL Creatinine (0.66-1.25) mg/dL Glucose (74-99) mg/dL POC Glucose (mg/dL) (70-110) mg/dL Assessment and Plan Assessment: Symptomatic Bicuspid calcified aortic stenosis and insufficiency status post AVR with mechanical valve, ligation of left atrial appendage Acute Hypoxic respiratory failure,post extubation, requiring 15 L high flow nasal cannula, improving, currently down to 4 L NC Atelactasis, postoperative, expected Postoperative paroxysmal atrial fibrillation, postop, expected outcome Hypercoagulopathy, on Coumadin, postop, status post vitamin K, resolved CAD, history of MO, stents History of COVID June 2021 COPD Obstructive sleep apnea, Diabetes mellitus hemoglobin A1c 6.4 Gastroesophageal reflux disease Hypertension Hyperlipidemia Nicotine dependence Morbid obesity, BMI 41.1 Plan: Continue on current medication regime ,monitoring and symptomatic treatme nt. Patient reporting that his is now testing positive for COVID-he is researching alternative place to stay temporarily. Continue with aggressive pulmonary toileting with nebulized bronchodilators, incentive spirometer reinforced. Smoking cessation reinforced. Discharge planning in progress as per CTS .Follow-up with PCP in one week. The impression and plan of care has been dictated as directed. : I performed a history and examination of this patient, discussed the same with the dictator. I agree with the dictator's note ,documented as a scribe. Any additional findings or plans will be noted.
[2022-02-08 17:03] LABS: Glucose,Whole Blood 138 mg/dL (70-110)
[2022-02-08 21:17] LABS: Glucose,Whole Blood 126 mg/dL (70-110)
[2022-02-08] MEDS: MELATONIN 3 MG TABLET PO SCH (21:54)
[2022-02-08] MEDS: SENNOSIDES-DOCUSATE SODIUM 1 EACH TAB PO SCH (21:54)
[2022-02-08] MEDS: ATORVASTATIN 80 MG TAB PO SCH (21:55)
[2022-02-09 06:13] LABS: Glucose,Whole Blood 144 mg/dL (70-110)
[2022-02-09] MEDS: INSULIN DETEMIR (LEVEMIR) 100 UNIT/ML SYR SQ SCH (07:04)
[2022-02-09] MEDS: PANTOPRAZOLE 40 MG TABLET PO SCH (07:04)
[2022-02-09] MEDS: INSULIN ASPART (NovoLOG) 100 UNIT/ML VIAL SQ SCH ×6 (07:04→21:30)
--- NOTE | 2022-02-09 07:06 | XR ---
EXAMINATION TYPE: XR chest 1V portable DATE OF EXAM: 02/09/2022 6:30 AM COMPARISON: Chest radiographs from 02/08/2022 TECHNIQUE: XR chest 1V portable Frontal view of the chest. CLINICAL INDICATION:Male, 51 years old with history of Post-op AVR On-X valve; FINDINGS: Lungs/Pleura: There is no evidence of pleural effusion, focal consolidation, or pneumothorax. Pulmonary vascularity: Mild pulmonary vascular congestion. Heart/mediastinum: Cardiomediastinal silhouette is enlarged and stable. . Valve replacement change s Left atrial appendage occlusion device is present. Musculoskeletal: No acute osseous pathology. Sternotomy changes. IMPRESSION: Low lung volumes with cardiomegaly and mild pulmonary edema.
[2022-02-09] MEDS: IPRATROPIUM-ALBUTEROL 3 ML NEB INHALATION SCH ×4 (08:33→20:15)
[2022-02-09] MEDS: SYMBICORT 80-4.5 MCG INHALER INHALATION SCH ×2 (08:33→20:15)
[2022-02-09] MEDS ORDERED: metOLazone 2.5 MG TAB PO SCH ×2 (09:00→10:45)
[2022-02-09 10:15] LABS: HCT 40.5 % (39.0-53.0); HGB 13.1 gm/dL (13.0-17.5); Hypochromasia Slight; MCH 28.6 pg (25.0-35.0); MCHC 32.4 g/dL (31.0-37.0); MCV 88.1 fL (80.0-100.0); Mean Platelet Volume 8.1; Platelet Count 381 k/uL (150-450); RBC 4.59 m/uL (4.30-5.90); RDW 14.5 % (11.5-15.5); WBC 13.4 k/uL (3.8-10.6)
[2022-02-09 10:24] LABS: INR 2.5 (<1.2); Prothrombin Time 25.4 sec (9.0-12.0)
[2022-02-09 10:34] LABS: Calcium 8.9 mg/dL (8.4-10.2)
[2022-02-09] MEDS: FUROSEMIDE 10 MG/ML 4 ML VIAL IV SCH (10:47)
[2022-02-09] MEDS: ASPIRIN 81 MG PO SCH (10:48)
[2022-02-09] MEDS: METOPROLOL TARTRATE 25 MG TAB PO SCH ×2 (10:48→19:20)
[2022-02-09] MEDS: AMIODARONE 200 MG TAB PO SCH ×2 (10:48→19:20)
[2022-02-09] MEDS: POTASSIUM CHLORIDE ER 20 MEQ TAB.ER PO SCH (10:48)
--- NOTE | 2022-02-09 11:10 | P.PN ---
Subjective Progress Note Date: 02/09/22 Principal diagnosis: Bicuspid calcific aortic stenosis/insufficiency. Past medical history significant for hypertension, hyperlipidemia, COPD, obstructive sleep apnea without home CPAP use, COVID-19 in June 2021, coronary artery disease with history of stent placement to his right coronary artery in 2018, occasional tobacco use smokes an occasional cigar, family history of coronary artery disease with his father having a myocardial infarction, chronic lower back pain and history of pulmonary embolus in which he was on Eliquis for anticoagulation. POD #9 aortic valve replacement with a 25 mm On-X mechanical valve, ligation of the left atrial appendage with a 35 mm Atricure clip, it aortic ultrasonography, patch closure of aortotomy with bovine pericardium area Postoperative acute blood loss anemia, expected given hemodilution and no pulmonary bypass. Postoperative paroxysmal atrial fibrillation, a known, recurrent after cardiac surgery. The patient was seen and examined today 02/09/2022 at his bedside on the cardiac stepdown unit. He denies any complaints of pain or shortness of breath this time. Currently is sitting up to bedside chair, is awake, alert, oriented 3 and is in no acute distress. He reports he has been up ambulating in the cardiac stepdown unit hallway with standby assistance from nursing and therapy staff and tolerating well. Remote telemetry showing normal sinus rhythm heart rate 80 ppm. No further episodes of atrial fibrillation reported. He remains hemodynamically stable and is currently on no inotropic pressor support. Laboratory results this morning BUN 20, creatinine 1.23, glucose 178 calcium 8.9. His PT was 34.3 and INR 3.4 yesterday and was given no dose of Coumadin. PT 25.4 and INR 2.5 today. He's been afebrile the last 24 hours. Oxygen saturation are 95% on room air and he is achieving 2000 mL on his incentive spirometry with much encouragement. He remains on Lasix 40 mg IV daily and was given a dose of Zaroxolyn 2.5 mg by mouth 1 yesterday, his urine output has been 1225 mL in the last 8 hours. Objective - Vital Signs Vital signs: Vital Signs Temp 98.4 F 02/09/22 04:00 Pulse 88 02/09/22 04:00 Resp 16 02/09/22 04:00 BP 128/66 02/09/22 04:00 Pulse Ox 95 02/09/22 04:00 FiO2 50 02/09/22 03:19 Intake & Output 02/08/22 02/09/22 02/09/22 18:59 06:59 18:59 Intake Total 840 1080 Output Total 825 1475 Balance 15 -395 Weight 110 kg Intake: Oral 840 1080 Output: Urine 825 1475 Other: Voiding Method Urinal Urinal ABP, PAP, CO, CI - Last Documented Arterial Blood Pressure 102/63 Pulmonary Artery Pressure 27/10 Cardiac Output 5.5 Cardiac Index 2.5 - Exam CONSTITUTIONAL: Sitting up to the bedside chair on the cardiac stepdown unit, appears comfortable, cooperative, no apparent acute distress. HEENT: Neck is supple, no JVD, no lymphadenopathy. RESPIRATORY: Lungs sounds essentially clear throughout, diminished to his bilateral bases. Respirations are symmetrical and nonlabored. Currently on room air with oxygen saturations 95%. Able to achieve 2000 mL on his incentive spirometry. Strong cough. CARDIOVASCULAR: Regular rhythm and rate. S1 and S2 present with mechanical valvular click, negative for S3, gallop or murmur. Sternum is stable. Palpable peripheral pulses bilaterally, trace edema to his bilateral lower extremities. No calf pain or tenderness noted. Surgical support bra and Heart hugger in place with patient demonstrating appropriate use. Knee-high MICHELLE hose and sequential compression devices in place to his bilateral lower extremities. Remote telemetry showing normal sinus rhythm with a heart rate of 88 bpm. GASTROINTESTINAL: Abdomen soft, nontender, nondistended. Active bowel sounds present 4 quadrants. Tolerating diet. Passing flatus. No guarding or rigidity. GENITOURINARY: Continues to void. Urine output 1225 mL in the last 8 hours. INTEGUMENTARY: Skin is warm and dry with no evidence of clubbing or cyanosis. Midline sternal incision clean dry and well approximated, covered with dry intact dressing. NEUROLOGIC: Cranial nerves II through XII intact. No focal deficits. MUSKULOSKELETAL: Able to move all extremities, strength equal bilaterally. PSYCHIATRIC: Alert and oriented to person place and time, appropriate affect, intact judgment and insight. - Allied health notes Allied health notes reviewed: nursing - Labs CBC & Chem 7: 02/09/22 09:01 02/09/22 09:01 Labs: Abnormal Lab Results - Last 24 Hours (Table) 02/08/22 02/08/22 02/08/22 Range/Units 07:50 07:50 07:50 WBC 12.5 H (3.8-10.6) k/uL Hgb 12.5 L (13.0-17.5) gm/dL Hct 38.5 L (39.0-53.0) % Neutrophils # 8.6 H (1.3-7.7) k/uL PT 34.3 H (9.0-12.0) sec INR 3.4 H (<1.2) Sodium 132 L (137-145) mmol/L Chloride 93 L (98-107) mmol/L BUN 33 H (9-20) mg/dL Creatinine 1.27 H (0.66-1.25) mg/dL Glucose 110 H (74-99) mg/dL POC Glucose (mg/dL) (70-110) mg/dL 02/08/22 02/08/22 02/08/22 Range/Units 11:56 16:50 21:15 WBC (3.8-10.6) k/uL Hgb (13.0-17.5) gm/dL Hct (39.0-53.0) % Neutrophils # (1.3-7.7) k/uL PT (9.0-12.0) sec INR (<1.2) Sodium (137-145) mmol/L Chloride (98-107) mmol/L BUN (9-20) mg/dL Creatinine (0.66-1.25) mg/dL Glucose (74-99) mg/dL POC Glucose (mg/dL) 122 H 138 H 126 H (70-110) mg/dL 02/09/22 Range/Units 06:12 WBC (3.8-10.6) k/uL Hgb (13.0-17.5) gm/dL Hct (39.0-53.0) % Neutrophils # (1.3-7.7) k/uL PT (9.0-12.0) sec INR (<1.2) Sodium (137-145) mmol/L Chloride (98-107) mmol/L BUN (9-20) mg/dL Creatinine (0.66-1.25) mg/dL Glucose (74-99) mg/dL POC Glucose (mg/dL) 144 H (70-110) mg/dL - Imaging and Cardiology Chest x-ray: report reviewed, image reviewed Assessment and Plan Assessment: 1. Bicuspid calcific aortic stenosis/insufficiency, status post aortic valve replacement with 25 mm On-X mechanical valve 2. Coronary artery disease status post stent placement to his right coronary artery in 2018 3. History of Hypertension 4. History of Hyperlipidemia, on atorvastatin 80 mg by mouth daily at bedtime on an outpatient basis 5. History of pulmonary embolus, was on Eliquis for anticoagulation on an outpatient basis 6. Chronic obstructive pulmonary disease, with a preoperative FEV1 57% of predicted value with a base of 2.01 L 7. Severe symptomatic obstructive sleep apnea, currently does not use CPAP therapy at home 8. Chronic ongoing tobacco dependence, smokes an occasional cigar 9. History of COVID-19 in June 2021 10. Morbid obesity with a BMI of 41.1 kg/m 11. Borderline diabetes mellitus type 2 with a preoperative hemoglobin A1c of 6.4%, diet-controlled 12. Family history of coronary artery disease with his father having a myocardial infarction at age 48 13. Postoperative acute blood loss anemia, expected given hemodilution and cardiopulmonary bypass 14. Acute kidney injury, possibly secondary to hypotension 15. Postoperative paroxysmal atrial fibrillation, a known common occurrence after cardiac surgery, currently in normal sinus rhythm Plan: 1. Continue to maximize medical therapy with low-dose aspirin, statin, and beta milton. Will increase metoprolol tartrate as tolerated. 2. Continue amiodarone to 200 mg by mouth twice a day. 3. Encourage incentive spirometry 10 times every hour while awake. Bronchodilators per pulmonology/critical care medicine. Continue Symbicort 804 0.5 g 2 puffs twice a day. BiPAP management per pulmonary/critical care recommendations. 4. Increase activity, ambulate as tolerated. PT/OT/cardiac rehab following. 5. Will monitor daily labs. Electrolyte replacement per protocol. 6. GI and DVT prophylaxis. 7. Pain control with current medication regimen. Avoid nephrotoxic agents. 8. Insulin management per primary care service. Borderline diabetic with a preoperative hemoglobin A1c 6.4%. 9. INR is 2.5 today and we will give Coumadin 1 mg by mouth today. Continue to monitor daily PT and INR with goal INR for first 3 months 2-3, after 3 months go al INR 1.5-2. Continue to monitor daily PT and INR. Patient has an On-X mechanical aortic valve. 10. Continue to monitor BUN and creatinine. BUN 29 and creatinine 1.23 today. 11. Continue to record strict accurate intake and output. Daily weights. 12. The importance of risk modification including smoking cessation have been discussed with the patient. Smoking cessation education and counseling was provided, patient was strongly encouraged to quit smoking. 13. Shower daily. 14. Continue Lasix 40 mg IV daily, and potassium chloride 20 mEq by mouth daily while on Lasix. Continue 1500 mL fluid restriction daily. 15. Zaroxolyn 2.5 mg by mouth 1 now. 16. Discharge planning is in place and will be followed with [facility] home health care. 17. More recommendations to follow based on patient's clinical course. Time with Patient: Greater than 30
--- NOTE | 2022-02-09 11:21 | P.PN ---
Subjective Progress Note Date: 02/09/22 PROGRESS NOTE The patient is a 51-year-old male history of CAD status post aortic valve replacement. He is doing well this morning, ambulating without difficulties. He denies any dizziness, palpitations or syncope. He is doing well with incentive spirometry. He continues to be on amiodarone 200 mg twice a day, aspirin, Coumadin, insulin, Lasix 40 mg daily, metoprolol 75 g twice a day, Zaroxolyn 20 half milligrams daily PHYSICAL EXAMINATION: Blood pressure 128/60 heart rate 80 LUNGS: Mild decrease in the breath sounds at bases HEART: [Regular rate and rhythm, S1, S2. Prostatic aortic sound No S3. systolic ejection murmur] ABDOMEN: [Soft, nontender, no organomegaly] EXTREMETIES: [+1 edema] LAB INR 2.5 IMPREssion: 1. Status post aortic valve replacement 2. paroxysmal atrial fibrillation 3. history of pulmonary embolism 4. history of CAD PLAN: 1.Continue anticoagulation 2. continue incentive spirometry 3. increase physical activity 4. probable discharge in the next 24-48 hours Objective - Vital Signs Vital signs: Vital Signs Temp 98.4 F 02/09/22 04:00 Pulse 50 L 02/09/22 08:46 Resp 16 02/09/22 08:46 BP 128/66 02/09/22 04:00 Pulse Ox 93 L 02/09/22 08:33 FiO2 30 02/09/22 08:33 Intake & Output 02/08/22 02/09/22 02/09/22 18:59 06:59 18:59 Intake Total 840 1080 Output Total 825 1475 Balance 15 -395 Weight 110 kg Intake: Oral 840 1080 Output: Urine 825 1475 Other: Voiding Method Urinal Urinal ABP, PAP, CO, CI - Last Documented Arterial Blood Pressure 102/63 Pulmonary Artery Pressure 27/10 Cardiac Output 5.5 Cardiac Index 2.5 - Labs CBC & Chem 7: 02/09/22 09:01 02/09/22 09:01 Labs: Abnormal Lab Results - Last 24 Hours (Table) 02/08/22 02/08/22 02/08/22 Range/Units 11:56 16:50 21:15 WBC (3.8-10.6) k/uL PT (9.0-12.0) sec INR (<1.2) Sodium (137-145) mmol/L Chloride (98-107) mmol/L BUN (9-20) mg/dL Glucose (74-99) mg/dL POC Glucose (mg/dL) 122 H 138 H 126 H (70-110) mg/dL 02/09/22 02/09/22 02/09/22 Range/Units 06:12 09:01 09:01 WBC 13.4 H (3.8-10.6) k/uL PT 25.4 H (9.0-12.0) sec INR 2.5 H (<1.2) Sodium (137-145) mmol/L Chloride (98-107) mmol/L BUN (9-20) mg/dL Glucose (74-99) mg/dL POC Glucose (mg/dL) 144 H (70-110) mg/dL 02/09/22 Range/Units 09:01 WBC (3.8-10.6) k/uL PT (9.0-12.0) sec INR (<1.2) Sodium 133 L (137-145) mmol/L Chloride 94 L (98-107) mmol/L BUN 29 H (9-20) mg/dL Glucose 178 H (74-99) mg/dL POC Glucose (mg/dL) (70-110) mg/dL
--- NOTE | 2022-02-09 11:57 | P.PN ---
Subjective Progress Note Date: 02/09/22 Patient was reevaluated today on 02/01/22, patient was successfully extubated at 6:15 p.m. last evening. Initially extubated to BiPAP, and he is now on high flow nasal cannula at 15 L/m. Doing fairly well with incentive spirometry achieving about 1000 mL. Patient continues to have some pain from his chest tube, and he continues to have right IJ [place] catheter and Cordis in place. He is hemodynamically stable, cardiac output is 5.5 and cardiac index is 2.5 his PA pressure 28/13 and CVP is 14. Remains on amiodarone drip at 0.5 mg/m as per protocol. Chest x-ray showed mostly postoperative changes, and scattered pleural parenchymal opacities reflecting mostly atelectasis. Expected. W scan is 13.7 hemoglobin 8.2, basic metabolic profile is normal creatinine is up to 1.23 today, was 1.06 yesterday. Blood sugars were 35 rest of the metabolic panel is normal Reevaluated today on 02/02/22, remains in the ICU, he is presently on BiPAP with IPAP of 14/6/60% O2 saturation is in the mid 90s. He is on IV fluid to KVO. He is postoperative day #2 doing fairly well, he is relatively asymptomatic, improving with his incentive spirometer. Nonetheless his O2 saturation remains marginal on 60% FiO2. Chest x-ray showed postsurgical changes no evidence of active disease noted. Left hemidiaphragm seems to be elevated Reevaluated today on 02/03/22, patient remains in the ICU, sitting up in the bedside chair, awake, alert oriented 3, in no distress. Patient seems to be doing great. However he remains on 15 L high flow nasal cannula and his chest x-ray is showing evidence of interstitial edema hence I'm recommending a dose of Lasix 40 mg IV push today. His bedside telemetry showing atrial fibrillation rate of 93/m, patient is on metoprolol is also on amiodarone orally. He received 2 boluses of amiodarone 150 mg IV piggyback. Overall the patient is doing well otherwise. WBC count 16.8 hemoglobin is 11.5. Electrolytes are normal BUN is 41 and creatinine 1.59 Progress note dated 02/04/2022. Postop day #4, status post aortic valve replacement for aortic stenosis. The patient had a mechanical valve placed. He is currently on 4 L nasal O2. He's not receiving any IV fluids. His INR this morning was 8.5. Coumadin is on hold. White count 11.1, hemoglobin 10.8, normal platelet count. Sodium 132, potassium 3.8, chlorides 96, CO2 25, BUN 44, creatinine 1.45. Chest x-ray shows diffuse bilateral infiltrates, likely related to fluid overload/CHF. Progress note dated 02/05/2022. Postop day #5, status post aortic valve replacement for aortic stenosis. The patient is again seen in the intensive care unit, room 265. Currently, he's on 3 L nasal cannula. He did have some atrial fibrillation last night, and was given some amiodarone. He's not receiving any IV fluids. He seems to be relatively stable this morning. Morning labs are currently pending. Morning c hest x-ray is currently pending as well. Progress note dated 02/06/2022. Postop day #6, status post aortic valve replacement for aortic stenosis. The patient remains on 3 L nasal cannula. He did use BiPAP last night for only 1.5 hours. Not receiving any IV fluids. BiPAP settings were 14/5 and 50%. The patient's INR was elevated, and he did receive vitamin K yesterday. Clinically, he looks reasonably stable. Labs today include a white count 10.3, hemoglobin 10.9, hematocrit 33, platelet count 228,000. PT/INR was 17.3 and 1.7 respectively. That's in the near therapeutic range. Sodium 131, potassium 4, chlorides 94, CO2 27, BUN 39, creatinine 1.21. Calcium is 8.2. Chest x-ray has not yet been done. Progress note dated 02/07/2022. 51-year-old male, postop day #7, status post aortic valve replacement for aortic stenosis. Currently, he's on room air. He's not receiving any IV fluids. He did use BiPAP for 4 hours last night, with settings of 12/5 and 50%. He appears to be doing much better today. White count 13.2, hemoglobin 12, hematocrit 36.5, and platelet count 292,000. His INR is 2.6. Sodium 132, potassium 3.9, chlorides 90, CO2 31, BUN 35, and creatinine 1.25. Chest x-ray shows improving fluid overload. The patient is seen today 02/08/2022 in follow-up on the selective care unit. Postoperative day #8 of aortic valve replacement for aortic stenosis. He s itting up in a chair at the bedside. Awake and alert in no acute distress. Continue O2 saturations in the 90s on room air. He's afebrile. Hemodynamically stable. Chest x-ray reveals cardiomegaly with stable mild pulmonary vascular congestion. White count 12.5. Hemoglobin 12.5. INR 3.4. Sodium 132. Potassium 4.1. BUN 33. Creatinine 1.27. Glucose 110. He remains on DuoNeb inhalations, Symbicort, IV diuretics. Warfarin for anticoagulation. The patient is seen today 02/09/2022 in follow-up on the selective care unit. Postoperative day #9 of aortic valve replacement for aortic stenosis. Currently sitting up in the chair. Awake and alert in no acute distress. Maintaining O2 saturations in the 90s on room air. Afebrile. Chest x-ray shows low lung volumes with cardiomegaly and mild pulmonary edema. White count 13.4. Hemoglobin 13.1. INR 2.5. Sodium 133. Potassium 4.0. BUN 29. Creatinine 1.3. He remains on Symbicort, DuoNeb inhalations, diuretics. Anticoagulant wi th warfarin. Objective - Vital Signs Vital signs: Vital Signs Temp 98.4 F 02/09/22 04:00 Pulse 50 L 02/09/22 08:46 Resp 16 02/09/22 08:46 BP 128/66 02/09/22 04:00 Pulse Ox 93 L 02/09/22 08:33 FiO2 30 02/09/22 08:33 Intake & Output 02/08/22 02/09/22 02/09/22 18:59 06:59 18:59 Intake Total 840 1080 Output Total 825 1475 Balance 15 -395 Weight 110 kg Intake: Oral 840 1080 Output: Urine 825 1475 Other: Voiding Method Urinal Urinal ABP, PAP, CO, CI - Last Documented Arterial Blood Pressure 102/63 Pulmonary Artery Pressure 27/10 Cardiac Output 5.5 Cardiac Index 2.5 - Exam GENERAL EXAM: Alert, pleasant 51-year-old male patient, on room air, comfortable in no apparent distress. HEAD: Normocephalic. EYES: Normal reaction of pupils, equal size. NOSE: Clear with pink turbinates. THROAT: No erythema or exudates. NECK: No masses, no JVD. CHEST: Heart hugger place. Incision clean dry well approximated LUNGS: Equal air entry with faint crackles in the posterior bases. CVS: S1 and S2 normal with no audible murmur, regular rhythm. ABDOMEN: No hepatosplenomegaly, normal bowel sounds, no guarding or rigidity. SPINE: No scoliosis or deformity SKIN: No rashes CENTRAL NERVOUS SYSTEM: No focal deficits, tone is normal in all 4 extremities. EXTREMITIES: There is no peripheral edema. No clubbing, no cyanosis. Peripheral pulses are intact. - Labs CBC & Chem 7: 02/09/22 09:01 02/09/22 09:01 Labs: Abnormal Lab Results - Last 24 Hours (Table) 02/08/22 02/08/22 02/08/22 Range/Units 11:56 16:50 21:15 WBC (3.8-10.6) k/uL PT (9.0-12.0) sec INR (<1.2) Sodium (137-145) mmol/L Chloride (98-107) mmol/L BUN (9-20) mg/dL Glucose (74-99) mg/dL POC Glucose (mg/dL) 122 H 138 H 126 H (70-110) mg/dL 02/09/22 02/09/22 02/09/22 Range/Units 06:12 09:01 09:01 WBC 13.4 H (3.8-10.6) k/uL PT 25.4 H (9.0-12.0) sec INR 2.5 H (<1.2) Sodium (137-145) mmol/L Chloride (98-107) mmol/L BUN (9-20) mg/dL Glucose (74-99) mg/dL POC Glucose (mg/dL) 144 H (70-110) mg/dL 02/09/22 Range/Units 09:01 WBC (3.8-10.6) k/uL PT (9.0-12.0) sec INR (<1.2) Sodium 133 L (137-145) mmol/L Chloride 94 L (98-107) mmol/L BUN 29 H (9-20) mg/dL Glucose 178 H (74-99) mg/dL POC Glucose (mg/dL) (70-110) mg/dL Assessment and Plan Assessment: Postop day #9, status post aortic valve replacement, with mechanical valve, for aortic stenosis. Bicuspid aortic valve, with aortic stenosis/insufficiency. Routine postoperative ventilator management. Postoperative atrial fibrillation. Hypertension. History of pulmonary embolism. 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 Severe obstructive sleep apnea syndrome, with an apnea/hypoxia index of 60. Obesity. History of coronavirus infection, June 2021. Type 2 diabetes mellitus. Family history of CAD. Plan: The patient was seen and evaluated Stable and on room air Anticoagulated with warfarin Increase his activity as tolerated Home once cleared by CT services I have personally seen and examined the patient, performed the documentation and the assessment and plan as written. Number of minutes spent on the visit: 10.
[2022-02-09 12:24] LABS: Glucose,Whole Blood 174 mg/dL (70-110)
[2022-02-09] MEDS ORDERED: DEXTROSE 5% IN WATER 100 ML with AMIODARONE 150 MG IV ONE (14:45)
[2022-02-09 15:13] LABS: Glucose,Whole Blood 125 mg/dL (70-110)
--- NOTE | 2022-02-09 16:05 | P.PN ---
Subjective Progress Note Date: 02/09/22 This is a 51 year old male who is being monitored on step down unit today, postoperative day #9 AVR He is sitting up in chair and has been ambulating in the [address] way 2 times so far today. He is having bowel movements, no urinary complaints. He is wearing heart hugger appropriately does report some mild chest discomfort with cough. Reports mild intermittent dry cough. Using incentive spirometer. Labs reviewed today showing a white count of 13.4, hgb stable at 13.1, sodium 133, potassium 4.0, BUN 29, creatinine 1.23. INR today is 2.5, patient continues on coumadin. Blood glucose monitoring, continues on insulin. Chest xray this morning showing low lung volumes with cardiomegaly and mild pulmonary edema. Patient is receiving IV lasix daily and remains in negative fluid balance. Heart rate in the 60's normal sinus rhythm, afebrile. Blood pressure today 128/66, 95% on room air. Review of Systems Constitutional: Denied any fatigue denied any fever. Cardio vascular: denied any chest pain, palpitations Gastrointestinal: denied any nausea, vomiting, diarrhea Pulmonary: Denied any shortness of breath, has mild dry intermittent cough Neurologic denied any new focal deficits All inpatient medications were reviewed and appropriate changes in these medications as dictated in the interval history and assessment and plan. PHYSICAL EXAMINATION: GENERAL: The patient is alert and oriented x3, not in any acute distress. Well developed, well nourished. HEENT: Pupils are round and equally reacting to light. EOMI. No scleral icterus. No conjunctival pallor. Normocephalic, atraumatic. No pharyngeal erythema. No thyromegaly. CARDIOVASCULAR: S1 and S2 present. No murmurs, rubs, or gallops. Wearing Heart Hugger. Regular rate and rhythm. PULMONARY: Equal air entry, diminished bases bilaterally. ABDOMEN: Soft, nontender, nondistended, normoactive bowel sounds. No palpable organomegaly. Post surgical sites in tact. MUSCULOSKELETAL: No joint swelling or deformity. EXTREMITIES: No cyanosis, clubbing, or pedal edema. NEUROLOGICAL: Gross neurological examination did not reveal any focal deficits. SKIN: No rashes. Assessment and Plan Assessment Symptomatic Bicuspid calcified aortic stenosis and insufficiency status post AVR with mechanical valve, ligation of left atrial appendage Acute Hypoxic respiratory failure post extubation, requiring 15 L nasal cannula initially patient is now down to room air. Postoperative paroxysmal atrial fibrillation, postop, expected outcome currently maintaining sinus mechanism Hypercoagulopathy, on Coumadin, postop, status post vitamin K, resolved INR today 2.5 CAD, history of OH, stents History of COVID June 2021 History of pulmonary embolism COPD Obstructive sleep apnea Diabetes mellitus hemoglobin A1c 6.4 Gastroesophageal reflux disease Hypertension Hyperlipidemia Nicotine dependence Morbid obesity, BMI 41.1 GI Prophylaxis DVT Prophylaxis; on Coumadin Full Code Plan Continue with current medications as per primary team Continue IV lasix and strict intake and output monitoring Patient is on 1500 CC fluid restriction Continues on oral amiodarone, maintaining normal sinus rhythm Continue bronchodilators Blood glucose monitoring, patient on insulin Patient wearing incentive spirometer appropriately and ambulating in hallways Repeat labs in AM PT/OT following the patient, discharge planning in place The impression and plan of care has been dictated by Sobeida Rutledge Nurse Practitioner as directed. Dr. Francisco MD I have performed a history and physical examination and medical decision making of this patient, discussed the same with the dictator, and agree with the dictators assessment and plan as written, documented as a scribe. Based on total visit time, I have performed more than 50% of this visit. Objective - Vital Signs Vital signs: Vital Signs Temp 98.4 F 02/09/22 04:00 Pulse 96 02/09/22 12:04 Resp 16 02/09/22 08:46 BP 128/66 02/09/22 04:00 Pulse Ox 93 L 02/09/22 08:33 FiO2 30 02/09/22 08:33 Intake & Output 02/08/22 02/09/22 02/09/22 18:59 06:59 18:59 Intake Total 840 1080 840 Output Total 825 1475 1100 Balance 28 -047 -837 Weight 110 kg Intake: Oral 840 1080 840 Output: Urine 825 1475 1100 Other: Voiding Method Urinal Urinal # Bowel Movements 1 ABP, PAP, CO, CI - Last Documented Arterial Blood Pressure 102/63 Pulmonary Artery Pressure 27/10 Cardiac Output 5.5 Cardiac Index 2.5 - Labs CBC & Chem 7: 02/09/22 09:01 02/09/22 09:01 Labs: Abnormal Lab Results - Last 24 Hours (Table) 02/08/22 02/08/22 02/09/22 Range/Units 16:50 21:15 06:12 WBC (3.8-10.6) k/uL PT (9.0-12.0) sec INR (<1.2) Sodium (137-145) mmol/L Chloride (98-107) mmol/L BUN (9-20) mg/dL Glucose (74-99) mg/dL POC Glucose (mg/dL) 138 H 126 H 144 H (70-110) mg/dL 02/09/22 02/09/22 02/09/22 Range/Units 09:01 09:01 09:01 WBC 13.4 H (3.8-10.6) k/uL PT 25.4 H (9.0-12.0) sec INR 2.5 H (<1.2) Sodium 133 L (137-145) mmol/L Chloride 94 L (98-107) mmol/L BUN 29 H (9-20) mg/dL Glucose 178 H (74-99) mg/dL POC Glucose (mg/dL) (70-110) mg/dL 02/09/22 02/09/22 Range/Units 12:01 15:11 WBC (3.8-10.6) k/uL PT (9.0-12.0) sec INR (<1.2) Sodium (137-145) mmol/L Chloride (98-107) mmol/L BUN (9-20) mg/dL Glucose (74-99) mg/dL POC Glucose (mg/dL) 174 H 125 H (70-110) mg/dL Assessment and Plan Time with Patient: Less than 30
--- NOTE | 2022-02-09 16:11 | XR ---
EXAMINATION TYPE: XR chest 1V DATE OF EXAM: 02/09/2022 COMPARISON: Today HISTORY: Short of breath TECHNIQUE: Single view FINDINGS: There is no heart failure nor confluent pneumonic infiltrate. Costophrenic angles are clear . There sternal wires. No pleural effusion. There are chest leads. IMPRESSION: No active cardiopulmonary disease. No change
[2022-02-09 16:37] LABS: Basophils # (A) 0.2 k/uL (0-0.2); Basophils % (A) 1 %; Eosinophils # (A) 0.3 k/uL (0-0.7); Eosinophils % (A) 1 %; HCT 42.9 % (39.0-53.0); HGB 13.9 gm/dL (13.0-17.5); Hypochromasia Slight; Lymphocytes # (A) 1.6 k/uL (1.0-4.8); Lymphocytes % (A) 6 %; MCH 28.2 pg (25.0-35.0); MCHC 32.4 g/dL (31.0-37.0); MCV 87.1 fL (80.0-100.0); Mean Platelet Volume 7.9; Monocytes # (A) 0.7 k/uL (0-1.0); Monocytes % (A) 3 %; Neutrophils # (A) 21.5 k/uL (1.3-7.7); Neutrophils % (A) 89 %; Platelet Count 440 k/uL (150-450); RBC 4.93 m/uL (4.30-5.90); RDW 13.9 % (11.5-15.5); WBC 24.2 k/uL (3.8-10.6)
[2022-02-09 16:46] LABS: VBG PH 7.48 (7.31-7.41)
[2022-02-09 16:50] LABS: Albumin 3.5 g/dL (3.5-5.0); Calcium 8.9 mg/dL (8.4-10.2); Magnesium 1.8 mg/dL (1.6-2.3); Potassium 4.6 mmol/L (3.5-5.1); Total Bilirubin 0.8 mg/dL (0.2-1.3)
[2022-02-09 17:21] LABS: Glucose,Whole Blood 136 mg/dL (70-110)
--- NOTE | 2022-02-09 17:31 | P.PN ---
Progress Note - Text Progress Note Date: 02/09/22 A Team Progress Note Update 51-year-old man who is status post surgical aortic valve replacement with paroxysmal atrial fibrillation, severe obstructive sleep apnea, CAD status post previous PCI, heart failure with preserved ejection fraction who is postop day 9 after his surgical aortic valve replacement. I was called the patient bedside to evaluate him for developing chest pain, shortness of breath, hypoxia. Patient tells me that he started developing chills this morning, worsening shor tness of breath gradually throughout the day, then later started to develop sharp chest pain, worse with inspiration just underneath the sternotomy site. I evaluated the patient bedside, and he was afebrile, 93/47, heart rate irregular but controlled, 93% on 4 L of nasal cannula. Patient appeared in mild distress from respiratory distress, no accessory muscle use, low lung volumes on inspiration, symmetric chest expansion, bilateral breath sounds with diminished breath sounds in the bases, irregular heart rate with no appreciable murmurs, bilateral pitting edema, JVD, no abdominal pain, nondistended, alert and oriented 3, cooperative, pleasant, insight and judgment are intact, cranial nerves II through XII are intact, no focal deficits appreciated. Stat lab work: CBC shows an increase in white blood cell count to 24.2 from 13.4. Chemistries show hyponatremia to 131, chloride of 93, bicarbonate 26, BUN/creatinine of 33/1.55 increased from 29/1.23 earlier today. Liver function tests show elevated AST and ALT to 74, 69. Initial troponin is 0.497, BNP is 2170. VBG shows pH of 7.48, pCO2 of 39 in a patient who is likely a chronic retainer of CO2 concerning for hypoxemia driven process. ABG cannot be done after several attempts. Stat imaging: EKG demonstrated atrial fibrillation with rapid ventricular response in the 120 range, ST changes in leads 2, 3, aVF which appears similar in appearance to EKG done post op day four after SAVR. Chest x-ray demonstrates increased coronary vascular congestion, and also to my eye, subtle appearance of new lucency with extension into the abdominal cavity which follows the sternotomy wires, concerning for possible anterior mediastinum. Assessment/plan: Acute hypoxemic respiratory failure -If possible, ABG should be reattempted to confirm pO2 level -Stat CT chest to rule out anterior pneumomediastinum -Primary team is updated on patient's medical condition, I defer to them whether patient would benefit from antibiotics given white blood cell count -Repeat troponin in 6 hours to follow trend -Uptitrate oxygen as needed, avoid BiPAP until pneumo-mediastinum ruled out -CT surgery and pulmonology should be included in updates I spent 55 minutes of critical care time with this patient, not including procedures
[2022-02-09] MEDS ORDERED: WARFARIN 1 MG TAB PO ONE (18:00)
--- NOTE | 2022-02-09 19:36 | CT ---
EXAMINATION TYPE: CT chest wo con DATE OF EXAM: 02/09/2022 COMPARISON: 12/31/2021 HISTORY: open heart sx JAN 31, concern for pneumomediastinum CT DLP: 707.9 mGycm Automated exposure control for dose reduction was used. There is some patchy atelectasis and linear infiltrate at the lung bases bilaterally. There is modera te pericardial effusion that measures up to 1.8 cm in thickness. Heart size is normal. No mediastinal adenopathy. There are no hilar masses. No evidence of pneumomediastinum. No pneumothorax. There are sternal wires. The thoracic spine is intact. No compression fracture. IMPRESSION: There is moderate pericardial effusion which appears new compared to old exam. There is a small air b ubble in the right side of the pericardial fluid which is consistent with recent surgery. There is li near infiltrate and atelectasis at the lung bases which is new compared to the old exam. Cardiac surg bria.
[2022-02-09 21:04] LABS: Appearance,Urine Clear (Clear); Bilirubin,Urine Negative (Negative); Blood,Urine Negative (Negative); Color,Urine Yellow; Glucose,Urine (UA) Negative (Negative); Ketones,Urine Negative (Negative); Leukocyte Esterase,Urine Negative (Negative); Nitrite,Urine Negative (Negative); PH, Urine 5.5 (5.0-8.0); Protein,Urine Negative (Negative); Specific Gravity,Urine 1.018 (1.001-1.035); Urobilinogen,Urine <2.0 mg/dL (<2.0)
[2022-02-09 21:17] LABS: Glucose,Whole Blood 121 mg/dL (70-110)
[2022-02-09] MEDS: SENNOSIDES-DOCUSATE SODIUM 1 EACH TAB PO SCH (22:35)
[2022-02-09] MEDS: ATORVASTATIN 40 MG TAB PO SCH (22:39)
[2022-02-09] MEDS: MELATONIN 3 MG TABLET PO SCH (22:40)
[2022-02-10 06:21] LABS: INR 2.3 (<1.2)
[2022-02-10 06:22] LABS: Prothrombin Time 22.7 sec (9.0-12.0)
[2022-02-10 06:27] LABS: Basophils # (A) 0.1 k/uL (0-0.2); Basophils % (A) 1 %; Eosinophils # (A) 0.6 k/uL (0-0.7); Eosinophils % (A) 4 %; HCT 39.6 % (39.0-53.0); HGB 13.2 gm/dL (13.0-17.5); Hypochromasia Slight; Lymphocytes % (A) 20 %; MCH 29.4 pg (25.0-35.0); MCHC 33.3 g/dL (31.0-37.0); MCV 88.1 fL (80.0-100.0); Mean Platelet Volume 7.9; Monocytes # (A) 0.7 k/uL (0-1.0); Monocytes % (A) 5 %; Neutrophils # (A) 10.7 k/uL (1.3-7.7); Neutrophils % (A) 69 %; Platelet Count 397 k/uL (150-450); RBC 4.49 m/uL (4.30-5.90); RDW 14.3 % (11.5-15.5); WBC 15.4 k/uL (3.8-10.6)
[2022-02-10 06:39] LABS: Albumin 3.4 g/dL (3.5-5.0); Calcium 8.5 mg/dL (8.4-10.2); Magnesium 1.8 mg/dL (1.6-2.3); Potassium 3.6 mmol/L (3.5-5.1); Total Bilirubin 0.6 mg/dL (0.2-1.3); Total Protein 5.9 g/dL (6.3-8.2)
[2022-02-10 06:49] LABS: Glucose,Whole Blood 113 mg/dL (70-110)
[2022-02-10] MEDS: INSULIN DETEMIR (LEVEMIR) 100 UNIT/ML SYR SQ SCH (07:05)
[2022-02-10] MEDS: PANTOPRAZOLE 40 MG TABLET PO SCH (07:05)
[2022-02-10] MEDS: INSULIN ASPART (NovoLOG) 100 UNIT/ML VIAL SQ SCH ×7 (07:17→20:26)
--- NOTE | 2022-02-10 07:38 | XR ---
EXAMINATION TYPE: XR chest 2V DATE OF EXAM: 02/10/2022 5:33 AM COMPARISON: Chest radiograph from one day prior. TECHNIQUE: XR chest 2V Frontal view of the chest. CLINICAL INDICATION:Male, 51 years old with history of SOB; FINDINGS: Lungs/Pleura: Low lung volumes are present. There is no evidence of pleural effusion, focal consolida tion, or pneumothorax. Pulmonary vascularity: Unremarkable. Heart/mediastinum: Cardiomediastinal silhouette is enlarged and stable. Post aortic valve repair yoseph nges. Left atrial appendage occlusion device is present. Musculoskeletal: No acute osseous pathology. IMPRESSION: Low lung volumes with a generalized hazy appearance which could represent atelectasis versus pulmonar y edema correlate with serum BNP.
[2022-02-10] MEDS: MAGNESIUM SULFATE-D5W PMX 1 GM in DEXTROSE/WATER 1 100ML.BAG IVPB SCH ×2 (07:51→08:59)
[2022-02-10] MEDS: IPRATROPIUM-ALBUTEROL 3 ML NEB INHALATION SCH ×4 (07:55→19:08)
[2022-02-10] MEDS: SYMBICORT 80-4.5 MCG INHALER INHALATION SCH ×2 (07:56→19:08)
[2022-02-10] MEDS ORDERED: POTASSIUM CHLORIDE ER 20 MEQ TAB.ER PO SCH (08:00)
[2022-02-10] MEDS: METOPROLOL TARTRATE 25 MG TAB PO SCH ×2 (08:04→20:27)
[2022-02-10] MEDS: AMIODARONE 200 MG TAB PO SCH ×2 (08:04→20:28)
[2022-02-10] MEDS: ASPIRIN 81 MG PO SCH (08:04)
--- NOTE | 2022-02-10 09:28 | P.PN ---
Subjective Progress Note Date: 02/10/22 PROGRESS NOTE The patient is a 51-year-old male history of CAD status post aortic valve replacement. He is doing well this morning, ambulating without difficulties. He denies any dizziness, palpitations or syncope. He is doing well with incentive spirometry. He continues to be on amiodarone 200 mg twice a day, aspirin, Coumadin, insulin, Lasix 40 mg daily, metoprolol 75 g twice a day, Zaroxolyn 20 half milligrams daily February 10: The patient had atrial flutter patient was rapid ventricle response yesterday associated with dyspnea, chest discomfort. A CAT scan was performed that showed evidence of pericardial effusion. He is back in sinus mechanism today, ambulating without difficulty, feels well. He denies any chest discomfort or dizziness at this time. He denies any nausea or vomiting. He is scheduled to undergo an echocardiogram with Doppler. Medications include amiodarone 200 mg twice a day, aspirin once a day, insulin, metoprolol tartrate 75 mg twice a day. He did not receive Coumadin today PHYSICAL EXAMINATION: Blood pressure 109/70, heart rate 90 LUNGS: Mild decrease in the breath sounds at bases HEART: [Regular rate and rhythm, S1, S2. Prosthetic aortic sound No S3. systolic ejection murmur] ABDOMEN: [Soft, nontender, no organomegaly] EXTREMETIES: [Trace edema] LAB INR 2.3, BUN 36, creatinine 1.45, white blood cells 15.4 IMPREssion: 1. Status post aortic valve replacement 2. paroxysmal atrial fibrillation, back in sinus mechanism 3. history of pulmonary embolism 4. history of CAD 5. Pericardial effusion 6. Chronic kidney disease PLAN: 1. Proceed with echocardiogram to evaluate pericardial effusion, clinically there is no evidence to suggest temponade 2. Hold Coumadin until echocardiogram done 3. Continue beta milton and amiodarone Objective - Vital Signs Vital signs: Vital Signs Temp 97.2 F L 02/10/22 04:00 Pulse 90 02/10/22 08:00 Resp 20 02/10/22 08:00 BP 109/72 02/10/22 08:00 Pulse Ox 94 L 02/10/22 08:00 FiO2 30 02/10/22 00:09 Intake & Output 02/09/22 02/10/22 02/10/22 18:59 06:59 18:59 Intake Total 1545 130 460 Output Total 1100 300 Balance 445 -170 460 Weight 109.996 kg Intake: IV 30 10 Invasive Line 7 10 Invasive Line 8 20 10 Intake, IV Titration 100 Amount Magnesium Sulfate-D5w Pmx 100 1 gm In Dextrose/Water 1 100ml.bag @ 100 mls/hr IVPB Q1H [facility] Rx#: [id number] Oral 1515 120 360 Output: Urine 1100 300 Post Void Residual 0 Other: Voiding Method Urinal Urinal Urinal # Voids 0 # Bowel Movements 1 1 ABP, PAP, CO, CI - Last Documented Arterial Blood Pressure 102/63 Pulmonary Artery Pressure 11/04 Cardiac Output 5.5 Cardiac Index 2.5 - Labs CBC & Chem 7: 02/10/22 05:50 02/10/22 05:50 Labs: Abnormal Lab Results - Last 24 Hours (Table) 02/09/22 02/09/22 02/09/22 Range/Units 09:01 09:01 09:01 WBC 13.4 H (3.8-10.6) k/uL Neutrophils # (1.3-7.7) k/uL PT 25.4 H (9.0-12.0) sec INR 2.5 H (<1.2) VBG pH (7.31-7.41) VBG HCO3 (24-28) mmol/L Sodium 133 L (137-145) mmol/L Chloride 94 L (98-107) mmol/L Carbon Dioxide (22-30) mmol/L BUN 29 H (9-20) mg/dL Creatinine (0.66-1.25) mg/dL Glucose 178 H (74-99) mg/dL POC Glucose (mg/dL) (70-110) mg/dL AST (17-59) U/L ALT (4-49) U/L Troponin I (0.000-0.034) ng/mL Total Protein (6.3-8.2) g/dL Albumin (3.5-5.0) g/dL 02/09/22 02/09/22 02/09/22 Range/Units 12:01 15:11 16:15 WBC (3.8-10.6) k/uL Neutrophils # (1.3-7.7) k/uL PT (9.0-12.0) sec INR (<1.2) VBG pH (7.31-7.41) VBG HCO3 (24-28) mmol/L Sodium (137-145) mmol/L Chloride (98-107) mmol/L Carbon Dioxide (22-30) mmol/L BUN (9-20) mg/dL Creatinine (0.66-1.25) mg/dL Glucose (74-99) mg/dL POC Glucose (mg/dL) 174 H 125 H (70-110) mg/dL AST (17-59) U/L ALT (4-49) U/L Troponin I 0.497 H* (0.000-0.034) ng/mL Total Protein (6.3-8.2) g/dL Albumin (3.5-5.0) g/dL 02/09/22 02/09/22 02/09/22 Range/Units 16:15 16:15 16:15 WBC 24.2 H (3.8-10.6) k/uL Neutrophils # 21.5 H (1.3-7.7) k/uL PT (9.0-12.0) sec INR (<1.2) VBG pH 7.48 H (7.31-7.41) VBG HCO3 29 H (24-28) mmol/L Sodium 131 L (137-145) mmol/L Chloride 93 L (98-107) mmol/L Carbon Dioxide (22-30) mmol/L BUN 33 H (9-20) mg/dL Creatinine 1.55 H (0.66-1.25) mg/dL Glucose 133 H (74-99) mg/dL POC Glucose (mg/dL) (70-110) mg/dL AST 74 H (17-59) U/L ALT 69 H (4-49) U/L Troponin I (0.000-0.034) ng/mL Total Protein 6.0 L (6.3-8.2) g/dL Albumin (3.5-5.0) g/dL 02/09/22 02/09/22 02/09/22 Range/Units 17:15 21:16 22:15 WBC (3.8-10.6) k/uL Neutrophils # (1.3-7.7) k/uL PT (9.0-12.0) sec INR (<1.2) VBG pH (7.31-7.41) VBG HCO3 (24-28) mmol/L Sodium (137-145) mmol/L Chloride (98-107) mmol/L Carbon Dioxide (22-30) mmol/L BUN (9-20) mg/dL Creatinine (0.66-1.25) mg/dL Glucose (74-99) mg/dL POC Glucose (mg/dL) 136 H 121 H (70-110) mg/dL AST (17-59) U/L ALT (4-49) U/L Troponin I 0.485 H* (0.000-0.034) ng/mL Total Protein (6.3-8.2) g/dL Albumin (3.5-5.0) g/dL 02/10/22 02/10/22 02/10/22 Range/Units 05:50 05:50 05:50 WBC 15.4 H (3.8-10.6) k/uL Neutrophils # 10.7 H (1.3-7.7) k/uL PT 22.7 H (9.0-12.0) sec INR 2.3 H (<1.2) VBG pH (7.31-7.41) VBG HCO3 (24-28) mmol/L Sodium (137-145) mmol/L Chloride (98-107) mmol/L Carbon Dioxide (22-30) mmol/L BUN (9-20) mg/dL Creatinine (0.66-1.25) mg/dL Glucose (74-99) mg/dL POC Glucose (mg/dL) (70-110) mg/dL AST (17-59) U/L ALT (4-49) U/L Troponin I 0.441 H* (0.000-0.034) ng/mL Total Protein (6.3-8.2) g/dL Albumin (3.5-5.0) g/dL 02/10/22 02/10/22 Range/Units 05:50 06:47 WBC (3.8-10.6) k/uL Neutrophils # (1.3-7.7) k/uL PT (9.0-12.0) sec INR (<1.2) VBG pH (7.31-7.41) VBG HCO3 (24-28) mmol/L Sodium 134 L (137-145) mmol/L Chloride 93 L (98-107) mmol/L Carbon Dioxide 31 H (22-30) mmol/L BUN 36 H (9-20) mg/dL Creatinine 1.45 H (0.66-1.25) mg/dL Glucose 109 H (74-99) mg/dL POC Glucose (mg/dL) 113 H (70-110) mg/dL AST 63 H (17-59) U/L ALT 67 H (4-49) U/L Troponin I (0.000-0.034) ng/mL Total Protein 5.9 L (6.3-8.2) g/dL Albumin 3.4 L (3.5-5.0) g/dL
--- NOTE | 2022-02-10 10:54 | P.PN ---
Subjective Progress Note Date: 02/10/22 Patient was reevaluated today on 02/01/22, patient was successfully extubated at 6:15 p.m. last evening. Initially extubated to BiPAP, and he is now on high flow nasal cannula at 15 L/m. Doing fairly well with incentive spirometry achieving about 1000 mL. Patient continues to have some pain from his chest tube, and he continues to have right IJ De Young-Charisma catheter and Cordis in place. He is hemodynamically stable, cardiac output is 5.5 and cardiac index is 2.5 his PA pressure 28/13 and CVP is 14. Remains on amiodarone drip at 0.5 mg/m as per protocol. Chest x-ray showed mostly postoperative changes, and scattered pleural parenchymal opacities reflecting mostly atelectasis. Expected. W scan is 13.7 hemoglobin 8.2, basic metabolic profile is normal creatinine is up to 1.23 today, was 1.06 yesterday. Blood sugars were 35 rest of the metabolic panel is normal Reevaluated today on 02/02/22, remains in the ICU, he is presently on BiPAP with IPAP of 14/6/60% O2 saturation is in the mid 90s. He is on IV fluid to KVO. He is postoperative day #2 doing fairly well, he is relatively asymptomatic, improving with his incentive spirometer. Nonetheless his O2 saturation remains marginal on 60% FiO2. Chest x-ray showed postsurgical changes no evidence of active disease noted. Left hemidiaphragm seems to be elevated Reevaluated today on 02/03/22, patient remains in the ICU, sitting up in the bedside chair, awake, alert oriented 3, in no distress. Patient seems to be doing great. However he remains on 15 L high flow nasal cannula and his chest x-ray is showing evidence of interstitial edema hence I'm recommending a dose of Lasix 40 mg IV push today. His bedside telemetry showing atrial fibrillation rate of 93/m, patient is on metoprolol is also on amiodarone orally. He received 2 boluses of amiodarone 150 mg IV piggyback. Overall the patient is doing well otherwise. WBC count 16.8 hemoglobin is 11.5. Electrolytes are normal BUN is 41 and creatinine 1.59 Progress note dated 02/04/2022. Postop day #4, status post aortic valve replacement for aortic stenosis. The patient had a mechanical valve placed. He is currently on 4 L nasal O2. He's not receiving any IV fluids. His INR this morning was 8.5. Coumadin is on hold. White count 11.1, hemoglobin 10.8, normal platelet count. Sodium 132, potassium 3.8, chlorides 96, CO2 25, BUN 44, creatinine 1.45. Chest x-ray shows diffuse bilateral infiltrates, likely related to fluid overload/CHF. Progress note dated 02/05/2022. Postop day #5, status post aortic valve replacement for aortic stenosis. The patient is again seen in the intensive care unit, room 265. Currently, he's on 3 L nasal cannula. He did have some atrial fibrillation last night, and was given some amiodarone. He's not receiving any IV fluids. He seems to be relatively stable this morning. Morning labs are currently pending. Morning c hest x-ray is currently pending as well. Progress note dated 02/06/2022. Postop day #6, status post aortic valve replacement for aortic stenosis. The patient remains on 3 L nasal cannula. He did use BiPAP last night for only 1.5 hours. Not receiving any IV fluids. BiPAP settings were 14/5 and 50%. The patient's INR was elevated, and he did receive vitamin K yesterday. Clinically, he looks reasonably stable. Labs today include a white count 10.3, hemoglobin 10.9, hematocrit 33, platelet count 228,000. PT/INR was 17.3 and 1.7 respectively. That's in the near therapeutic range. Sodium 131, potassium 4, chlorides 94, CO2 27, BUN 39, creatinine 1.21. Calcium is 8.2. Chest x-ray has not yet been done. Progress note dated 02/07/2022. 51-year-old male, postop day #7, status post aortic valve replacement for aortic stenosis. Currently, he's on room air. He's not receiving any IV fluids. He did use BiPAP for 4 hours last night, with settings of 12/5 and 50%. He appears to be doing much better today. White count 13.2, hemoglobin 12, hematocrit 36.5, and platelet count 292,000. His INR is 2.6. Sodium 132, potassium 3.9, chlorides 90, CO2 31, BUN 35, and creatinine 1.25. Chest x-ray shows improving fluid overload. The patient is seen today 02/08/2022 in follow-up on the selective care unit. Postoperative day #8 of aortic valve replacement for aortic stenosis. He s itting up in a chair at the bedside. Awake and alert in no acute distress. Continue O2 saturations in the 90s on room air. He's afebrile. Hemodynamically stable. Chest x-ray reveals cardiomegaly with stable mild pulmonary vascular congestion. White count 12.5. Hemoglobin 12.5. INR 3.4. Sodium 132. Potassium 4.1. BUN 33. Creatinine 1.27. Glucose 110. He remains on DuoNeb inhalations, Symbicort, IV diuretics. Warfarin for anticoagulation. The patient is seen today 02/09/2022 in follow-up on the selective care unit. Postoperative day #9 of aortic valve replacement for aortic stenosis. Currently sitting up in the chair. Awake and alert in no acute distress. Maintaining O2 saturations in the 90s on room air. Afebrile. Chest x-ray shows low lung volumes with cardiomegaly and mild pulmonary edema. White count 13.4. Hemoglobin 13.1. INR 2.5. Sodium 133. Potassium 4.0. BUN 29. Creatinine 1.3. He remains on Symbicort, DuoNeb inhalations, diuretics. Anticoagulant wi th warfarin. The patient is seen today 02/10/2022 in follow-up in the intensive care unit. Yesterday about 3:30 in the afternoon the patient developed chest pain, hypotension and shortness of breath and atrial fibrillation with a rapid ventricular response. Computed tomography scan of the chest revealed moderate pericardial effusion. There is a small air bubble and right-sided pericardial effusion consistent with recent surgery. Linear infiltrate and atelectasis at lung bases. He did receive amiodarone and converted to sinus rhythm approximately 1:30 this morning. He is seen today in follow-up in the intensive care unit. He did wear BiPAP to over 5-50% FiO2 for approximate 6 hours. He is currently sitting up in a chair at the bedside. Awake and alert in no acute distress. States he is feeling well. He is maintaining O2 saturations in the 90s on room air. Afebrile. Hemodynamically stable. Chest x-ray reveals low lung volumes with atelectasis. White count 1415.4. Hemoglobin 13.2. Platelets 397. INR 2.3. Sodium 134. Potassium 3.6. Bicarb 31. BUN 36. Creatinine 1. 45. Glucose 109. Troponin 0.48, 0.44. ProBNP 2170. Rahman virus by PCR not detected. He remains on DuoNeb inhalations, Symbicort. Anticoagulated with warfarin. Now on oral amiodarone. Objective - Vital Signs Vital signs: Vital Signs Temp 97.2 F L 02/10/22 04:00 Pulse 87 02/10/22 09:00 Resp 16 02/10/22 09:00 BP 124/79 02/10/22 09:00 Pulse Ox 94 L 02/10/22 08:00 FiO2 30 02/10/22 00:09 Intake & Output 02/09/22 02/10/22 02/10/22 18:59 06:59 18:59 Intake Total 1545 130 560 Output Total 1100 300 Balance 445 -170 560 Weight 109.996 kg Intake: IV 30 10 Invasive Line 7 10 Invasive Line 8 20 10 Intake, IV Titration 200 Amount Magnesium Sulfate-D5w Pmx 200 1 gm In Dextrose/Water 1 100ml.bag @ 100 mls/hr IVPB Q1H [facility] Rx#: [id number] Oral 1515 120 360 Output: Urine 1100 300 Post Void Residual 0 Other: Voiding Method Urinal Urinal Urinal # Voids 0 # Bowel Movements 1 1 ABP, PAP, CO, CI - Last Documented Arterial Blood Pressure 102/63 Pulmonary Artery Pressure 27/10 Cardiac Output 5.5 Cardiac Index 2.5 - Exam GENERAL EXAM: Alert, pleasant 51-year-old male patient, on room air, comfortable in no apparent distress. HEAD: Normocephalic. EYES: Normal reaction of pupils, equal size. NOSE: Clear with pink turbinates. THROAT: No erythema or exudates. NECK: No masses, no JVD. CHEST: Heart hugger place. Incision clean dry well approximated LUNGS: Equal air entry with faint crackles in the posterior bases. CVS: S1 and S2 normal with no audible murmur, regular rhythm. ABDOMEN: No hepatosplenomegaly, normal bowel sounds, no guarding or rigidity. SPINE: No scoliosis or deformity SKIN: No rashes CENTRAL NERVOUS SYSTEM: No focal deficits, tone is normal in all 4 extremities. EXTREMITIES: There is no peripheral edema. No clubbing, no cyanosis. Peripheral pulses are intact. - Labs CBC & Chem 7: 02/10/22 05:50 02/10/22 05:50 Labs: Abnormal Lab Results - Last 24 Hours (Table) 02/09/22 02/09/22 02/09/22 Range/Units 12:01 15:11 16:15 WBC (3.8-10.6) k/uL Neutrophils # (1.3-7.7) k/uL PT (9.0-12.0) sec INR (<1.2) VBG pH (7.31-7.41) VBG HCO3 (24-28) mmol/L Sodium (137-145) mmol/L Chloride (98-107) mmol/L Carbon Dioxide (22-30) mmol/L BUN (9-20) mg/dL Creatinine (0.66-1.25) mg/dL Glucose (74-99) mg/dL POC Glucose (mg/dL) 174 H 125 H (70-110) mg/dL AST (17-59) U/L ALT (4-49) U/L Troponin I 0.497 H* (0.000-0.034) ng/mL Total Protein (6.3-8.2) g/dL Albumin (3.5-5.0) g/dL 02/09/22 02/09/22 02/09/22 Range/Units 16:15 16:15 16:15 WBC 24.2 H (3.8-10.6) k/uL Neutrophils # 21.5 H (1.3-7.7) k/uL PT (9.0-12.0) sec INR (<1.2) VBG pH 7.48 H (7.31-7.41) VBG HCO3 29 H (24-28) mmol/L Sodium 131 L (137-145) mmol/L Chloride 93 L (98-107) mmol/L Carbon Dioxide (22-30) mmol/L BUN 33 H (9-20) mg/dL Creatinine 1.55 H (0.66-1.25) mg/dL Glucose 133 H (74-99) mg/dL POC Glucose (mg/dL) (70-110) mg/dL AST 74 H (17-59) U/L ALT 69 H (4-49) U/L Troponin I (0.000-0.034) ng/mL Total Protein 6.0 L (6.3-8.2) g/dL Albumin (3.5-5.0) g/dL 02/09/22 02/09/22 02/09/22 Range/Units 17:15 21:16 22:15 WBC (3.8-10.6) k/uL Neutrophils # (1.3-7.7) k/uL PT (9.0-12.0) sec INR (<1.2) VBG pH (7.31-7.41) VBG HCO3 (24-28) mmol/L Sodium (137-145) mmol/L Chloride (98-107) mmol/L Carbon Dioxide (22-30) mmol/L BUN (9-20) mg/dL Creatinine (0.66-1.25) mg/dL Glucose (74-99) mg/dL POC Glucose (mg/dL) 136 H 121 H (70-110) mg/dL AST (17-59) U/L ALT (4-49) U/L Troponin I 0.485 H* (0.000-0.034) ng/mL Total Protein (6.3-8.2) g/dL Albumin (3.5-5.0) g/dL 02/10/22 02/10/22 02/10/22 Range/Units 05:50 05:50 05:50 WBC 15.4 H (3.8-10.6) k/uL Neutrophils # 10.7 H (1.3-7.7) k/uL PT 22.7 H (9.0-12.0) sec INR 2.3 H (<1.2) VBG pH (7.31-7.41) VBG HCO3 (24-28) mmol/L Sodium (137-145) mmol/L Chloride (98-107) mmol/L Carbon Dioxide (22-30) mmol/L BUN (9-20) mg/dL Creatinine (0.66-1.25) mg/dL Glucose (74-99) mg/dL POC Glucose (mg/dL) (70-110) mg/dL AST (17-59) U/L ALT (4-49) U/L Troponin I 0.441 H* (0.000-0.034) ng/mL Total Protein (6.3-8.2) g/dL Albumin (3.5-5.0) g/dL 02/10/22 02/10/22 Range/Units 05:50 06:47 WBC (3.8-10.6) k/uL Neutrophils # (1.3-7.7) k/uL PT (9.0-12.0) sec INR (<1.2) VBG pH (7.31-7.41) VBG HCO3 (24-28) mmol/L Sodium 134 L (137-145) mmol/L Chloride 93 L (98-107) mmol/L Carbon Dioxide 31 H (22-30) mmol/L BUN 36 H (9-20) mg/dL Creatinine 1.45 H (0.66-1.25) mg/dL Glucose 109 H (74-99) mg/dL POC Glucose (mg/dL) 113 H (70-110) mg/dL AST 63 H (17-59) U/L ALT 67 H (4-49) U/L Troponin I (0.000-0.034) ng/mL Total Protein 5.9 L (6.3-8.2) g/dL Albumin 3.4 L (3.5-5.0) g/dL Assessment and Plan Assessment: Postop day #10, status post aortic valve replacement, with mechanical valve, for aortic stenosis. On warfarin Bicuspid aortic valve, with aortic stenosis/insufficiency. Routine postoperative ventilator management. Recovered and on room air Postoperative atrial fibrillation, recurrent on 02/09/2022, converted back to sinus rhythm on 02/02/2022. On oral amiodarone.. Hypertension. History of pulmonary embolism. 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 Severe obstructive sleep apnea syndrome, with an apnea/hypoxia index of 60. Obesity. History of coronavirus infection, June 2021. Type 2 diabetes mellitus. Family history of CAD. Plan: The patient was seen and evaluated Return to the ICU last evening with chest pain, A. fib RVR Converted back to sinus rhythm and currently stable and on room air Anticoagulated with warfarin Increase his activity as tolerated We will continue to follow I have personally seen and examined the patient, performed the documentation and the assessment and plan as written. Number of minutes spent on the visit: 10.
[2022-02-10 11:33] LABS: Glucose,Whole Blood 105 mg/dL (70-110)
--- NOTE | 2022-02-10 11:50 | P.PN ---
Subjective Progress Note Date: 02/10/22 Principal diagnosis: Bicuspid calcific aortic stenosis/insufficiency. Past medical history significant for hypertension, hyperlipidemia, COPD, obstructive sleep apnea without home CPAP use, COVID-19 in June 2021, coronary artery disease with history of stent placement to his right coronary artery in 2018, occasional tobacco use smokes an occasional cigar, family history of coronary artery disease with his father having a myocardial infarction, chronic lower back pain and history of pulmonary embolus in which he was on Eliquis for anticoagulation. POD #10 aortic valve replacement with a 25 mm On-X mechanical valve, ligation of the left atrial appendage with a 35 mm Atricure clip, it aortic ultrasonography, patch closure of aortotomy with bovine pericardium area Postoperative acute blood loss anemia, expected given hemodilution and no pulmonary bypass. Postoperative paroxysmal atrial fibrillation, a known, recurrent after cardiac surgery. The patient was seen and examined in follow-up today 02/10/2022 at his bedside in the intensive care unit. Yesterday they patient developed an episode of feeling chilled, had complaints of gradual shortness of breath which was worsening throughout the morning and subsequently developed some chest pressure which was worse on inspiration. Yesterday a.m. he was on room air with oxygen saturations 95%, although with complaints of his shortness of breath required 4 L of nasal cannula with oxygen saturations 93%. It was also reported the patient was in atrial fibrillation with RVR with a heart rate of 120 to 130s. An amiodarone bolus of 150 mg IV piggyback was given per physician's orders. Stat blood work was completed which demonstrated a WBC count of 24.2 from 13.4, hemoglobin 13.9, hematocrit 42.9, platelets 440, sodium 131, potassium 4.6, chloride 93, CO2 26, BUN 33, creatinine 1.55, AST 74, ALT 69, proBNP 2170 and a troponin of 0.497. Due to the patient's above-mentioned symptoms he was subsequently transferred to the intensive care unit for further evaluation and treatment recommendations. This morning the patient is sitting up to the bedside chair, is awake, alert, oriented 3 and is in no acute apparent distress. He reports that this is probably the best he has felt since his surgery and he feels good. Laboratory results this morning show a WBC count trending down at 15.4, hemoglobin 13.2, hematocrit 39.6, platelets 397, sodium 134, potassium 3.6, chloride 93, CO2 31, BUN 36, creatinine 1.45, magnesium 1.8, AST 63 and ALT 67. Pro-calcitonin level is pending. The patient's INR yes terday was 2.5 and he was given 1 mg of Coumadin. Today his INR is 2.3 with a PT of 22.7. Oxygen saturations are 96% on room air and he is achieving 2000 mL on his incentive spirometry. The patient's bedside might nurse reports the patient converted from atrial fibrillation about 1:00 in the morning and is currently in normal sinus rhythm with a heart rate of 76 bpm. Incision sites were evaluated with no redness or drainage present. Sternum is stable with a heart hugger and surgical support bra in place. T-max temperature in the last 24 hours is 98.1F. According to the patient, his is positive with COVID-19 and has been at home isolating and the patient's COVID-19 test showed not detected which was completed last evening. Objective - Vital Signs Vital signs: Vital Signs Temp 97.2 F L 02/10/22 04:00 Pulse 84 02/10/22 06:04 Resp 14 02/10/22 06:04 BP 108/86 02/10/22 06:04 Pulse Ox 89 L 02/10/22 06:04 FiO2 30 02/10/22 00:09 Intake & Output 02/09/22 02/10/22 02/10/22 18:59 06:59 18:59 Intake Total 1545 130 460 Output Total 1100 300 Balance 445 -170 460 Weight 109.996 kg Intake: IV 30 10 Invasive Line 7 10 Invasive Line 8 20 10 Intake, IV Titration 100 Amount Magnesium Sulfate-D5w Pmx 100 1 gm In Dextrose/Water 1 100ml.bag @ 100 mls/hr IVPB Q1H [facility] Rx#: [id number] Oral 1515 120 360 Output: Urine 1100 300 Post Void Residual 0 Other: Voiding Method Urinal Urinal # Voids 0 # Bowel Movements 1 1 ABP, PAP, CO, CI - Last Documented Arterial Blood Pressure 102/63 Pulmonary Artery Pressure 27/10 Cardiac Output 5.5 Cardiac Index 2.5 - Exam CONSTITUTIONAL: Sitting up to the bedside chair in the intensive care unit, appears comfortable, cooperative, no apparent acute distress. HEENT: Neck is supple, no JVD, no lymphadenopathy. RESPIRATORY: Lungs sounds essentially clear throughout, diminished to his bilateral bases. Respirations are symmetrical and nonlabored. Currently on room air with oxygen saturations 96%. Able to achieve 2000 mL on his incentive spirometry. Strong cough. CARDIOVASCULAR: Regular rhythm and rate. S1 and S2 present with mechanical valvular click, negative for S3, gallop or murmur. Sternum is stable. Palpable peripheral pulses bilaterally, trace edema to his bilateral lower extremities. No calf pain or tenderness noted. Surgical support bra and Heart hugger in place with patient demonstrating appropriate use. Knee-high MICHELLE hose and sequential compression devices in place to his bilateral lower extremities. Bedside telemetry showing normal sinus rhythm with a heart rate of 76 bpm. GASTROINTESTINAL: Abdomen soft, nontender, nondistended. Active bowel sounds present 4 quadrants. Tolerating diet. Passing flatus. No guarding or rigidity. Bowel movement yesterday 02/09/2022. GENITOURINARY: Continues to void. Urine output 300 mL in the last 8 hours. INTEGUMENTARY: Skin is warm and dry with no evidence of clubbing or cyanosis. Midline sternal incision clean dry and well approximated, covered with dry intact dressing. NEUROLOGIC: Cranial nerves II through XII intact. No focal deficits. MUSKULOSKELETAL: Able to move all extremities, strength equal bilaterally. PSYCHIATRIC: Alert and oriented to person place and time, appropriate affect, intact judgment and insight. - Allied health notes Allied health notes reviewed: nursing - Labs CBC & Chem 7: 02/10/22 05:50 02/10/22 05:50 Labs: Abnormal Lab Results - Last 24 Hours (Table) 02/09/22 02/09/22 02/09/22 Range/Units 09:01 09:01 09:01 WBC 13.4 H (3.8-10.6) k/uL Neutrophils # (1.3-7.7) k/uL PT 25.4 H (9.0-12.0) sec INR 2.5 H (<1.2) VBG pH (7.31-7.41) VBG HCO3 (24-28) mmol/L Sodium 133 L (137-145) mmol/L Chloride 94 L (98-107) mmol/L Carbon Dioxide (22-30) mmol/L BUN 29 H (9-20) mg/dL Creatinine (0.66-1.25) mg/dL Glucose 178 H (74-99) mg/dL POC Glucose (mg/dL) (70-110) mg/dL AST (17-59) U/L ALT (4-49) U/L Troponin I (0.000-0.034) ng/mL Total Protein (6.3-8.2) g/dL Albumin (3.5-5.0) g/dL 02/09/22 02/09/22 02/09/22 Range/Units 12:01 15:11 16:15 WBC (3.8-10.6) k/uL Neutrophils # (1.3-7.7) k/uL PT (9.0-12.0) sec INR (<1.2) VBG pH (7.31-7.41) VBG HCO3 (24-28) mmol/L Sodium (137-145) mmol/L Chloride (98-107) mmol/L Carbon Dioxide (22-30) mmol/L BUN (9-20) mg/dL Creatinine (0.66-1.25) mg/dL Glucose (74-99) mg/dL POC Glucose (mg/dL) 174 H 125 H (70-110) mg/dL AST (17-59) U/L ALT (4-49) U/L Troponin I 0.497 H* (0.000-0.034) ng/mL Total Protein (6.3-8.2) g/dL Albumin (3.5-5.0) g/dL 02/09/22 02/09/22 02/09/22 Range/Units 16:15 16:15 16:15 WBC 24.2 H (3.8-10.6) k/uL Neutrophils # 21.5 H (1.3-7.7) k/uL PT (9.0-12.0) sec INR (<1.2) VBG pH 7.48 H (7.31-7.41) VBG HCO3 29 H (24-28) mmol/L Sodium 131 L (137-145) mmol/L Chloride 93 L (98-107) mmol/L Carbon Dioxide (22-30) mmol/L BUN 33 H (9-20) mg/dL Creatinine 1.55 H (0.66-1.25) mg/dL Glucose 133 H (74-99) mg/dL POC Glucose (mg/dL) (70-110) mg/dL AST 74 H (17-59) U/L ALT 69 H (4-49) U/L Troponin I (0.000-0.034) ng/mL Total Protein 6.0 L (6.3-8.2) g/dL Albumin (3.5-5.0) g/dL 02/09/22 02/09/22 02/09/22 Range/Units 17:15 21:16 22:15 WBC (3.8-10.6) k/uL Neutrophils # (1.3-7.7) k/uL PT (9.0-12.0) sec INR (<1.2) VBG pH (7.31-7.41) VBG HCO3 (24-28) mmol/L Sodium (137-145) mmol/L Chloride (98-107) mmol/L Carbon Dioxide (22-30) mmol/L BUN (9-20) mg/dL Creatinine (0.66-1.25) mg/dL Glucose (74-99) mg/dL POC Glucose (mg/dL) 136 H 121 H (70-110) mg/dL AST (17-59) U/L ALT (4-49) U/L Troponin I 0.485 H* (0.000-0.034) ng/mL Total Protein (6.3-8.2) g/dL Albumin (3.5-5.0) g/dL 02/10/22 02/10/22 02/10/22 Range/Units 05:50 05:50 05:50 WBC 15.4 H (3.8-10.6) k/uL Neutrophils # 10.7 H (1.3-7.7) k/uL PT 22.7 H (9.0-12.0) sec INR 2.3 H (<1.2) VBG pH (7.31-7.41) VBG HCO3 (24-28) mmol/L Sodium (137-145) mmol/L Chloride (98-107) mmol/L Carbon Dioxide (22-30) mmol/L BUN (9-20) mg/dL Creatinine (0.66-1.25) mg/dL Glucose (74-99) mg/dL POC Glucose (mg/dL) (70-110) mg/dL AST (17-59) U/L ALT (4-49) U/L Troponin I 0.441 H* (0.000-0.034) ng/mL Total Protein (6.3-8.2) g/dL Albumin (3.5-5.0) g/dL 02/10/22 02/10/22 Range/Units 05:50 06:47 WBC (3.8-10.6) k/uL Neutrophils # (1.3-7.7) k/uL PT (9.0-12.0) sec INR (<1.2) VBG pH (7.31-7.41) VBG HCO3 (24-28) mmol/L Sodium 134 L (137-145) mmol/L Chloride 93 L (98-107) mmol/L Carbon Dioxide 31 H (22-30) mmol/L BUN 36 H (9-20) mg/dL Creatinine 1.45 H (0.66-1.25) mg/dL Glucose 109 H (74-99) mg/dL POC Glucose (mg/dL) 113 H (70-110) mg/dL AST 63 H (17-59) U/L ALT 67 H (4-49) U/L Troponin I (0.000-0.034) ng/mL Total Protein 5.9 L (6.3-8.2) g/dL Albumin 3.4 L (3.5-5.0) g/dL - Imaging and Cardiology Chest x-ray: report reviewed, image reviewed Assessment and Plan Assessment: 1. Bicuspid calcific aortic stenosis/insufficiency, status post aortic valve replacement with 25 mm On-X mechanical valve 2. Coronary artery disease status post stent placement to his right coronary artery in 2018 3. History of Hypertension 4. History of Hyperlipidemia, on atorvastatin 80 mg by mouth daily at bedtime on an outpatient basis 5. History of pulmonary embolus, was on Eliquis for anticoagulation on an outpatient basis 6. Chronic obstructive pulmonary disease, with a preoperative FEV1 57% of predicted value with a base of 2.01 L 7. Severe symptomatic obstructive sleep apnea, currently does not use CPAP therapy at home 8. Chronic ongoing tobacco dependence, smokes an occasional cigar 9. History of COVID-19 in June 2021 10. Morbid obesity with a BMI of 41.1 kg/m 11. Borderline diabetes mellitus type 2 with a preoperative hemoglobin A1c of 6 .4%, diet-controlled 12. Family history of coronary artery disease with his father having a myocard ial infarction at age 48 13. Postoperative acute blood loss anemia, expected given hemodilution and cardiopulmonary bypass 14. Acute kidney injury, possibly secondary to hypotension 15. Postoperative paroxysmal atrial fibrillation, a known common occurrence after cardiac surgery, currently in normal sinus rhythm 16. Leukocytosis, unexpected, unknown etiology Plan: 1. Continue to maximize medical therapy with low-dose aspirin, statin, and beta milton. Will increase metoprolol tartrate as tolerated. 2. Continue amiodarone to 200 mg by mouth twice a day for atrial fibrillation prophylaxis. 3. Encourage incentive spirometry 10 times every hour while awake. Bronchodilators per pulmonology/critical care medicine. Continue Symbicort 804 0.5 g 2 puffs twice a day. BiPAP management per pulmonary/critical care recommendations. 4. Increase activity, ambulate as tolerated. PT/OT/cardiac rehab following. 5. Will monitor daily labs. Electrolyte replacement per protocol. Awaiting results of pro-calcitonin level. 6. GI and DVT prophylaxis. 7. Pain control with current medication regimen. Avoid nephrotoxic agents. 8. Insulin management per primary care service. Borderline diabetic with a preoperative hemoglobin A1c 6.4%. 9. INR is 2.3 today and we will give Coumadin 2 mg by mouth today. Continue to monitor daily PT and INR with goal INR for first 3 months 2-3, after 3 months goal INR 1.5-2. Continue to monitor daily PT and INR. Patient has an On-X mechanical aortic valve. 10. Continue to monitor BUN and creatinine. BUN 36 and creatinine 1.45 today. Lasix discontinued. 11. Continue to record strict accurate intake and output. Daily weights. 12. The importance of risk modification including smoking cessation have been discussed with the patient. Smoking cessation education and counseling was provided, patient was strongly encouraged to quit smoking. 13. Shower daily. 14. Discharge planning is in place and will be followed with [facility] home health care. 15. Transthoracic 2-D echocardiogram today to evaluate pericardial effusion. 16. More recommendations to follow based on patient's clinical course. Time with Patient: Greater than 30
--- NOTE | 2022-02-10 14:52 | P.PN ---
Subjective Progress Note Date: 02/10/22 This is a 51 year old male who is being monitored on step down unit today, postoperative day #9 AVR He is sitting up in chair and has been ambulating in the [address] way 2 times so far today. He is having bowel movements, no urinary complaints. He is wearing heart hugger appropriately does report some mild chest discomfort with cough. Reports mild intermittent dry cough. Using incentive spirometer. Labs reviewed today showing a white count of 13.4, hgb stable at 13.1, sodium 133, potassium 4.0, BUN 29, creatinine 1.23. INR today is 2.5, patient continues on coumadin. Blood glucose monitoring, continues on insulin. Chest xray this morning showing low lung volumes with cardiomegaly and mild pulmonary edema. Patient is receiving IV lasix daily and remains in negative fluid balance. Heart rate in the 60's normal sinus rhythm, afebrile. Blood pressure today 128/66, 95% on room air. 02/10/2022 Patient monitored in the intensive care unit today, he was moved late last night from stepdown. Patient is postoperative day #10 Aortic valve replacement. While ambulating yesterday afternoon patient had went into atrial fibrillation with RVR with hypotension requiring amiodarone bolus, also required oxygen support with BiPAP. An ateam was called and patient had chest xray that was essentially negative. He was experiencing chest pain, sharp in nature during incident. EKG was completed and routine labs taken. White count had increased up to 24.2, and also creatinine up to 1.55. Follow up chest CT was completed showing moderate pericardial effusion with linear infiltrate and atelectasis at the lung base. Chest xray this morning shows atelectasis versus pulmonary edema. His labs have improved today, white count 15.4, hgb 13.2, sodium 134, potassium 3.6, BUN 36, creatinine 1.45, magnesium 1.8, AST 63, ALT 67. proBNP yesterday 2170, also has troponin elevation. Procalcitonin level is pending, Covid and urinalysis are both negative. Lasix and metolazone placed on hold yesterday due to increased c reatinine. He is evaluated today sitting up in chair, on room air with oxygen saturation of 98%. Patient reports no chest pain, no shortness of breath, and states that he is feeling well overall. Patient converted to sinus rhythm early this morning, transitioned to oral amiodarone, continues on coumadin. Review of Systems Constitutional: Denied any fatigue denied any fever. Cardio vascular: denied any chest pain, palpitations Gastrointestinal: denied any nausea, vomiting, diarrhea Pulmonary: Denied any shortness of breath, has mild dry intermittent cough Neurologic denied any new focal deficits All inpatient medications were reviewed and appropriate changes in these medications as dictated in the interval history and assessment and plan. PHYSICAL EXAMINATION: GENERAL: The patient is alert and oriented x3, not in any acute distress. Well developed, well nourished. HEENT: Pupils are round and equally reacting to light. EOMI. No scleral icterus. No conjunctival pallor. Normocephalic, atraumatic. No pharyngeal erythema. No thyromegaly. CARDIOVASCULAR: S1 and S2 present. No murmurs, rubs, or gallops. Wearing Heart Hugger. Regular rate and rhythm. PULMONARY: Equal air entry, diminished bases bilaterally. ABDOMEN: Soft, nontender, nondistended, normoactive bowel sounds. No palpable organomegaly. Post surgical sites in tact. MUSCULOSKELETAL: No joint swelling or deformity. EXTREMITIES: No cyanosis, clubbing, or pedal edema. NEUROLOGICAL: Gross neurological examination did not reveal any focal deficits. SKIN: No rashes. Assessment and Plan Assessment Symptomatic Bicuspid calcified aortic stenosis and insufficiency status post AVR with mechanical valve, ligation of left atrial appendage Acute Hypoxic respiratory failure post extubation, requiring 15 L nasal cannula initially patient is now down to room air. Postoperative paroxysmal atrial fibrillation, postop, expected outcome currently maintaining sinus mechanism Hypercoagulopathy, on Coumadin, postop, status post vitamin K, resolved CAD, history of NC, stents History of COVID June 2021 History of pulmonary embolism COPD Obstructive sleep apnea Diabetes mellitus hemoglobin A1c 6.4 Gastroesophageal reflux disease Hypertension Hyperlipidemia Nicotine dependence Morbid obesity, BMI 41.1 GI Prophylaxis DVT Prophylaxis; on Coumadin Full Code Plan Patient is monitored in the ICU Continue with current medications as per primary team Patient is on 1500 CC fluid restriction Lasix and metolazone placed on hold Transitioned back to oral amiodarone, continues in normal sinus rhythm Continue bronchodilators Blood glucose monitoring, patient on insulin Patient wearing incentive spirometer appropriately and ambulating in hallways Repeat labs in AM PT/OT following the patient, discharge planning in place The impression and plan of care has been dictated by Sobeida Rutledge Nurse Practitioner as directed. Dr. Francisco MD I have performed a history and physical examination and medical decision making of this patient, discussed the same with the dictator, and agree with the dictators assessment and plan as written, documented as a scribe. Based on total visit time, I have performed more than 50% of this visit. Objective - Vital Signs Vital signs: Vital Signs Temp 98.4 F 02/10/22 12:00 Pulse 85 02/10/22 13:00 Resp 16 02/10/22 13:00 BP 113/70 02/10/22 13:00 Pulse Ox 98 02/10/22 12:00 FiO2 30 02/10/22 00:09 Intake & Output 02/09/22 02/10/22 02/10/22 18:59 06:59 18:59 Intake Total 1545 130 800 Output Total 1100 300 Balance 445 -170 800 Weight 109.996 kg Intake: IV 30 10 Invasive Line 7 10 Invasive Line 8 20 10 Intake, IV Titration 200 Amount Magnesium Sulfate-D5w Pmx 200 1 gm In Dextrose/Water 1 100ml.bag @ 100 mls/hr [facility] Rx#: [id number] Oral 1515 120 600 Output: Urine 1100 300 Post Void Residual 0 Other: Voiding Method Urinal Urinal Urinal # Voids 0 1 # Bowel Movements 1 1 ABP, PAP, CO, CI - Last Documented Arterial Blood Pressure 102/63 Pulmonary Artery Pressure 27/10 Cardiac Output 5.5 Cardiac Index 2.5 - Labs CBC & Chem 7: 02/10/22 05:50 02/10/22 05:50 Labs: Abnormal Lab Results - Last 24 Hours (Table) 02/09/22 02/09/22 02/09/22 Range/Units 15:11 16:15 16:15 WBC 24.2 H (3.8-10.6) k/uL Neutrophils # 21.5 H (1.3-7.7) k/uL PT (9.0-12.0) sec INR (<1.2) VBG pH (7.31-7.41) VBG HCO3 (24-28) mmol/L Sodium (137-145) mmol/L Chloride (98-107) mmol/L Carbon Dioxide (22-30) mmol/L BUN (9-20) mg/dL Creatinine (0.66-1.25) mg/dL Glucose (74-99) mg/dL POC Glucose (mg/dL) 125 H (70-110) mg/dL AST (17-59) U/L ALT (4-49) U/L Troponin I 0.497 H* (0.000-0.034) ng/mL Total Protein (6.3-8.2) g/dL Albumin (3.5-5.0) g/dL 02/09/22 02/09/22 02/09/22 Range/Units 16:15 16:15 17:15 WBC (3.8-10.6) k/uL Neutrophils # (1.3-7.7) k/uL PT (9.0-12.0) sec INR (<1.2) VBG pH 7.48 H (7.31-7.41) VBG HCO3 29 H (24-28) mmol/L Sodium 131 L (137-145) mmol/L Chloride 93 L (98-107) mmol/L Carbon Dioxide (22-30) mmol/L BUN 33 H (9-20) mg/dL Creatinine 1.55 H (0.66-1.25) mg/dL Glucose 133 H (74-99) mg/dL POC Glucose (mg/dL) 136 H (70-110) mg/dL AST 74 H (17-59) U/L ALT 69 H (4-49) U/L Troponin I (0.000-0.034) ng/mL Total Protein 6.0 L (6.3-8.2) g/dL Albumin (3.5-5.0) g/dL 02/09/22 02/09/22 02/10/22 Range/Units 21:16 22:15 05:50 WBC (3.8-10.6) k/uL Neutrophils # (1.3-7.7) k/uL PT 22.7 H (9.0-12.0) sec INR 2.3 H (<1.2) VBG pH (7.31-7.41) VBG HCO3 (24-28) mmol/L Sodium (137-145) mmol/L Chloride (98-107) mmol/L Carbon Dioxide (22-30) mmol/L BUN (9-20) mg/dL Creatinine (0.66-1.25) mg/dL Glucose (74-99) mg/dL POC Glucose (mg/dL) 121 H (70-110) mg/dL AST (17-59) U/L ALT (4-49) U/L Troponin I 0.485 H* (0.000-0.034) ng/mL Total Protein (6.3-8.2) g/dL Albumin (3.5-5.0) g/dL 02/10/22 02/10/22 02/10/22 Range/Units 05:50 05:50 05:50 WBC 15.4 H (3.8-10.6) k/uL Neutrophils # 10.7 H (1.3-7.7) k/uL PT (9.0-12.0) sec INR (<1.2) VBG pH (7.31-7.41) VBG HCO3 (24-28) mmol/L Sodium 134 L (137-145) mmol/L Chloride 93 L (98-107) mmol/L Carbon Dioxide 31 H (22-30) mmol/L BUN 36 H (9-20) mg/dL Creatinine 1.45 H (0.66-1.25) mg/dL Glucose 109 H (74-99) mg/dL POC Glucose (mg/dL) (70-110) mg/dL AST 63 H (17-59) U/L ALT 67 H (4-49) U/L Troponin I 0.441 H* (0.000-0.034) ng/mL Total Protein 5.9 L (6.3-8.2) g/dL Albumin 3.4 L (3.5-5.0) g/dL 02/10/22 Range/Units 06:47 WBC (3.8-10.6) k/uL Neutrophils # (1.3-7.7) k/uL PT (9.0-12.0) sec INR (<1.2) VBG pH (7.31-7.41) VBG HCO3 (24-28) mmol/L Sodium (137-145) mmol/L Chloride (98-107) mmol/L Carbon Dioxide (22-30) mmol/L BUN (9-20) mg/dL Creatinine (0.66-1.25) mg/dL Glucose (74-99) mg/dL POC Glucose (mg/dL) 113 H (70-110) mg/dL AST (17-59) U/L ALT (4-49) U/L Troponin I (0.000-0.034) ng/mL Total Protein (6.3-8.2) g/dL Albumin (3.5-5.0) g/dL Assessment and Plan Time with Patient: Less than 30
--- NOTE | 2022-02-10 15:15 | CA ---
Transthoracic Echo Report Name: Ac Munoz Age: 51 Gender: M : 1970 Exam Date: 02/10/2022 10:27 Exam Location: [facility] Ht (in): 67 Wt (lb): 242 Ordering Physician: Mack Melchor MD Attending/Referring Phys: [facility] Jahaira Fine RDCS Procedure CPT: Indications: re-eval new hypoxia Cardiac Hx: Technical Quality: Poor Contrast 1: Total Dose (mL): Contrast 2: Total Dose (mL): MEASUREMENTS (Male / Female) Normal Values 2D ECHO LV Diastolic Diameter PLAX 3.7 cm 4.2 - 5.9 / 3.9 - 5.3 cm LV Systolic Diameter PLAX 2.1 cm IVS Diastolic Thickness 1.9 cm 0.6 - 1.0 / 0.6 - 0.9 cm LVPW Diastolic Thickness 1.8 cm 0.6 - 1.0 / 0.6 - 0.9 cm LV Relative Wall Thickness 1.0 FINDINGS Left Ventricle Severely increased left ventricular wall thickness. Normal left ventricular systolic function with no obvious regional wall motion abnormalities. Left ventricular ejection fraction is estimated at 45-50 %. Right Ventricle Normal right ventricular size. Right Atrium Right atrium not well visualized. Left Atrium Normal left atrial size. Mitral Valve No mitral stenosis. No mitral regurgitation. Aortic Valve Aortic valve not well visualized. Tricuspid Valve Tricuspid valve not well visualized. Pulmonic Valve Pulmonic valve not well visualized. Pericardium Small pericardial effusion. Aorta Normal size aortic root and proximal ascending aorta. CONCLUSIONS 1. Mildly impaired left ventricle systolic function 2. Small pericardial effusion with no evidence of tamponade Previewed by: Dr. Jeffy Guo MD (Electronically Signed) Final Date: 10 February 2022 15:14
[2022-02-10 17:00] LABS: Glucose,Whole Blood 150 mg/dL (70-110)
[2022-02-10] MEDS ORDERED: WARFARIN 2 MG TAB PO ONE (18:00)
[2022-02-10 20:20] LABS: Glucose,Whole Blood 201 mg/dL (70-110)
[2022-02-10] MEDS: SENNOSIDES-DOCUSATE SODIUM 1 EACH TAB PO SCH (20:22)
[2022-02-10] MEDS: MELATONIN 3 MG TABLET PO SCH (20:27)
[2022-02-10] MEDS: ATORVASTATIN 40 MG TAB PO SCH (20:27)
[2022-02-11 04:52] LABS: Albumin 3.3 g/dL (3.5-5.0); Calcium 8.8 mg/dL (8.4-10.2); Total Bilirubin 0.5 mg/dL (0.2-1.3); Total Protein 5.8 g/dL (6.3-8.2)
[2022-02-11 04:53] LABS: Basophils # (A) 0.1 k/uL (0-0.2); Basophils % (A) 1 %; Eosinophils # (A) 0.7 k/uL (0-0.7); Eosinophils % (A) 4 %; HCT 39.2 % (39.0-53.0); HGB 12.8 gm/dL (13.0-17.5); Hypochromasia Slight; Lymphocytes # (A) 3.3 k/uL (1.0-4.8); Lymphocytes % (A) 21 %; MCH 28.7 pg (25.0-35.0); MCHC 32.6 g/dL (31.0-37.0); Monocytes # (A) 0.7 k/uL (0-1.0); Monocytes % (A) 5 %; Neutrophils # (A) 10.7 k/uL (1.3-7.7); Neutrophils % (A) 68 %; Platelet Count 365 k/uL (150-450); Prothrombin Time 20.4 sec (9.0-12.0); RBC 4.45 m/uL (4.30-5.90); RDW 14.1 % (11.5-15.5); WBC 15.7 k/uL (3.8-10.6)
[2022-02-11 06:40] LABS: Glucose,Whole Blood 114 mg/dL (70-110)
[2022-02-11] MEDS: INSULIN ASPART (NovoLOG) 100 UNIT/ML VIAL SQ SCH ×4 (06:44→11:32)
[2022-02-11] MEDS: PANTOPRAZOLE 40 MG TABLET PO SCH (06:48)
[2022-02-11] MEDS: INSULIN DETEMIR (LEVEMIR) 100 UNIT/ML SYR SQ SCH (06:48)
[2022-02-11] MEDS: IPRATROPIUM-ALBUTEROL 3 ML NEB INHALATION SCH ×2 (07:24→11:10)
[2022-02-11] MEDS: SYMBICORT 80-4.5 MCG INHALER INHALATION SCH (07:25)
[2022-02-11] MEDS: METOPROLOL TARTRATE 25 MG TAB PO SCH (08:32)
[2022-02-11] MEDS: ERGOCALCIFEROL 1,250 MCG (50,000 IU) CAPSULE PO SCH (08:33)
[2022-02-11] MEDS: ASPIRIN 81 MG PO SCH (08:33)
[2022-02-11] MEDS: AMIODARONE 200 MG TAB PO SCH (08:33)
--- NOTE | 2022-02-11 08:54 | P.PN ---
Subjective Progress Note Date: 02/11/22 The patient is a 51-year-old male who is currently admitted to the hospital after undergoing aortic valve replacement on January [address] Carroll. The patient developed atrial fibrillation yesterday on the stepdown unit. He states he was very short of breath and had chest pain associated with his arrhythmia. He was subsequently transferred back to the ICU. Echocardiogram showed EF of 45-50% with small pericardial effusion and no evidence of tamponade on. The patient subsequently converted back to sinus mechanism with amiodarone. The patient was interviewed and examined sitting up comfortably in the recliner chair. He states he is feeling well and is ready to be discharged from the hospital. He denies any chest pain or chest pressure at rest. Mild discomfort with ambulation. No difficulty breathing. No dizziness or lightheadedness. GENERAL: Well-appearing, well-nourished and in no acute distress. NECK: Supple without JVD or thyromegaly. LUNGS: Breath sounds clear to auscultation bilaterally. Respiration equal and unlabored. No wheezes, rales or rhonchi. HEART: Regular rate and rhythm. Soft systolic murmur. Prosthetic sounds. S1 and S2 heard. EXTREMITIES: Normal range of motion, no edema. No clubbing or cyanosis. Peripheral pulses intact and strong. VITALS: Blood pressure 114/78, respiratory rate 16, pulse 92, temp 98.1F TELEMETRY: Sinus rhythm overnight LABS: WBC 15.7, hemoglobin 12.8, hematocrit 39.2, platelet 365, INR 2.0, sodium 134, potassium 4.0, BUN 34, creatinine 1.28, AST 66, ALT 71 IMPRESSION: Postoperative atrial fibrillation Aortic stenosis and aortic insufficiency, status post mechanical aortic valve replacement Hypertension History of coronary artery disease with prior stenting of the RCA Diabetes mellitus Obesity PLAN: Discharge on oral amiodarone 400 mg for 2 weeks, then reduce to 200 mg daily Follow-up with primary separator inserter, Dr Jin I am dictating on behalf of Dr Glen Vincent's history/physical and assessment/plan. Objective - Vital Signs Vital signs: Vital Signs Temp 98.1 F 02/11/22 08:00 Pulse 92 02/11/22 08:00 Resp 16 02/11/22 08:00 BP 114/78 02/11/22 08:00 Pulse Ox 97 02/11/22 08:00 FiO2 30 02/11/22 03:04 Intake & Output 02/10/22 02/11/22 02/11/22 18:59 06:59 18:59 Intake Total 1280 350 300 Balance 1280 350 300 Weight 109.6 kg Intake: Intake, IV Titration 200 Amount Magnesium Sulfate-D5w Pmx 200 1 gm In Dextrose/Water 1 100ml.bag @ 100 mls/hr IVPB Q1H [facility] Rx#: [id number] Oral 1080 350 300 Other: Voiding Method Toilet Toilet # Voids 1 1 1 ABP, PAP, CO, CI - Last Documented Arterial Blood Pressure 102/63 Pulmonary Artery Pressure 27/10 Cardiac Output 5.5 Cardiac Index 2.5 - Labs CBC & Chem 7: 02/11/22 04:07 02/11/22 04:07 Labs: Abnormal Lab Results - Last 24 Hours (Table) 02/09/22 02/09/22 02/10/22 Range/Units 09:01 22:15 16:58 WBC (3.8-10.6) k/uL Hgb (13.0-17.5) gm/dL Neutrophils # (1.3-7.7) k/uL PT (9.0-12.0) sec INR (<1.2) Sodium (137-145) mmol/L Chloride (98-107) mmol/L BUN (9-20) mg/dL Creatinine (0.66-1.25) mg/dL Glucose (74-99) mg/dL POC Glucose (mg/dL) 150 H (70-110) mg/dL Hemoglobin A1c 6.4 H (0.0-6.0) % AST (17-59) U/L ALT (4-49) U/L Total Protein (6.3-8.2) g/dL Albumin (3.5-5.0) g/dL Procalcitonin 0.31 H (0.02-0.09) ng/mL 02/10/22 02/11/22 02/11/22 Range/Units 20:17 04:07 04:07 WBC 15.7 H (3.8-10.6) k/uL Hgb 12.8 L (13.0-17.5) gm/dL Neutrophils # 10.7 H (1.3-7.7) k/uL PT (9.0-12.0) sec INR (<1.2) Sodium 134 L (137-145) mmol/L Chloride 94 L (98-107) mmol/L BUN 34 H (9-20) mg/dL Creatinine 1.28 H (0.66-1.25) mg/dL Glucose 115 H (74-99) mg/dL POC Glucose (mg/dL) 201 H (70-110) mg/dL Hemoglobin A1c (0.0-6.0) % AST 66 H (17-59) U/L ALT 71 H (4-49) U/L Total Protein 5.8 L (6.3-8.2) g/dL Albumin 3.3 L (3.5-5.0) g/dL Procalcitonin (0.02-0.09) ng/mL 02/11/22 02/11/22 Range/Units 04:07 06:39 WBC (3.8-10.6) k/uL Hgb (13.0-17.5) gm/dL Neutrophils # (1.3-7.7) k/uL PT 20.4 H (9.0-12.0) sec INR 2.0 H (<1.2) Sodium (137-145) mmol/L Chloride (98-107) mmol/L BUN (9-20) mg/dL Creatinine (0.66-1.25) mg/dL Glucose (74-99) mg/dL POC Glucose (mg/dL) 114 H (70-110) mg/dL Hemoglobin A1c (0.0-6.0) % AST (17-59) U/L ALT (4-49) U/L Total Protein (6.3-8.2) g/dL Albumin (3.5-5.0) g/dL Procalcitonin (0.02-0.09) ng/mL
[2022-02-11 11:23] LABS: Glucose,Whole Blood 98 mg/dL (70-110)
--- NOTE | 2022-02-11 12:04 | P.PN ---
Subjective Progress Note Date: 02/11/22 Principal diagnosis: Bicuspid calcific aortic stenosis/insufficiency. Past medical history significant for hypertension, hyperlipidemia, COPD, obstructive sleep apnea without home CPAP use, COVID-19 in June 2021, coronary artery disease with history of stent placement to his right coronary artery in 2018, occasional tobacco use smokes an occasional cigar, family history of coronary artery disease with his father having a myocardial infarction, chronic lower back pain and history of pulmonary embolus in which he was on Eliquis for anticoagulation. POD #11 aortic valve replacement with a 25 mm On-X mechanical valve, ligation of the left atrial appendage with a 35 mm Atricure clip, it aortic ultrasonography, patch closure of aortotomy with bovine pericardium area Postoperative acute blood loss anemia, expected given hemodilution and no pulmonary bypass. Postoperative paroxysmal atrial fibrillation, a known, recurrent after cardiac surgery. The patient was seen and examined in follow-up today 02/11/2022 at his bedside in the intensive care unit. The patient reports he feels much improved today, denies any complaints of pain, shortness of breath, nausea, diarrhea or lightheadedness. Currently sitting up to the bedside chair, is awake, alert, oriented 3 and is no acute distress. He remains hemodynamically stable and is currently on no inotropic or pressors support. Oxygen saturations are 97% on room air and he is achieving 2000 mL on his incentive spirometry. He reports he used his BiPAP throughout the night and tolerated it well. Bedside telemetry showing normal sinus rhythm heart rate 89 BPM, no further complaints of atrial fibrillation reported. Laboratory results this morning show a WBC count of 15.7, hemoglobin 12.8, hematocrit 39.2, platelets 365, sodium 134, potassium 4.0, BUN 34, creatinine 1.28, glucose 115, calcium 8.8, AST 66 and ALT 71. Yesterday his PT was 22.7 and INR 2.3 he was given 2 mg of Coumadin. Today his INR is 2.0 and PTT is 20.4 and will be given Coumadin 2.5 mg by mouth daily. Discharge planning is in place and discharge instructions have been reviewed with the patient and the patient's on the phone. A transthoracic 2-D echocardiogram was completed yesterday 02/10/2022 which demonstrated a mildly in the left ventricular systolic function with ejection fraction of 45-50%, a small pericardial effusion without evidence of tamponade. Objective - Vital Signs Vital signs: Vital Signs Temp 98.1 F 02/11/22 08:00 Pulse 93 02/11/22 09:00 Resp 16 02/11/22 09:00 BP 112/65 02/11/22 09:00 Pulse Ox 97 02/11/22 08:00 FiO2 30 02/11/22 03:04 Intake & Output 02/10/22 02/11/22 02/11/22 18:59 06:59 18:59 Intake Total 1280 350 300 Balance 1280 350 300 Weight 109.6 kg Intake: Intake, IV Titration 200 Amount Magnesium Sulfate-D5w Pmx 200 1 gm In Dextrose/Water 1 100ml.bag @ 100 mls/hr IVPB Q1H [facility] Rx#: [id number] Oral 1080 350 300 Other: Voiding Method Toilet Toilet Toilet # Voids 1 1 1 ABP, PAP, CO, CI - Last Documented Arterial Blood Pressure 102/63 Pulmonary Artery Pressure 27/10 Cardiac Output 5.5 Cardiac Index 2.5 - Exam CONSTITUTIONAL: Sitting up to the bedside chair in the intensive care unit, appears comfortable, cooperative, no apparent acute distress. HEENT: Neck is supple, no JVD, no lymphadenopathy. RESPIRATORY: Lungs sounds essentially clear throughout, diminished to his bilateral bases. Respirations are symmetrical and nonlabored. Currently on room air with oxygen saturations 97%. Able to achieve 2000 mL on his incentive spirometry. Strong cough. CARDIOVASCULAR: Regular rhythm and rate. S1 and S2 present with mechanical valvular click, negative for S3, gallop or murmur. Sternum is stable. Palpable peripheral pulses bilaterally, trace edema to his bilateral lower extremities. No calf pain or tenderness noted. Surgical support bra and Heart hugger in place with patient demonstrating appropriate use. Knee-high MICHELLE hose and sequential compression devices in place to his bilateral lower extremities. Bedside telemetry showing normal sinus rhythm with a heart rate of 89 bpm. GASTROINTESTINAL: Abdomen soft, nontender, nondistended. Active bowel sounds present 4 quadrants. Tolerating diet. Passing flatus. No guarding or rigidity. Bowel movement today 02/11/2022. GENITOURINARY: Continues to void. INTEGUMENTARY: Skin is warm and dry with no evidence of clubbing or cyanosis. Midline sternal incision clean dry and well approximated, covered with dry intact dressing. NEUROLOGIC: Cranial nerves II through XII intact. No focal deficits. MUSKULOSKELETAL: Able to move all extremities, strength equal bilaterally. PSYCHIATRIC: Alert and oriented to person place and time, appropriate affect, intact judgment and insight. - Allied health notes Allied health notes reviewed: nursing - Labs CBC & Chem 7: 02/11/22 04:07 02/11/22 04:07 Labs: Abnormal Lab Results - Last 24 Hours (Table) 02/09/22 02/09/22 02/10/22 Range/Units 09:01 22:15 16:58 WBC (3.8-10.6) k/uL Hgb (13.0-17.5) gm/dL Neutrophils # (1.3-7.7) k/uL PT (9.0-12.0) sec INR (<1.2) Sodium (137-145) mmol/L Chloride (98-107) mmol/L BUN (9-20) mg/dL Creatinine (0.66-1.25) mg/dL Glucose (74-99) mg/dL POC Glucose (mg/dL) 150 H (70-110) mg/dL Hemoglobin A1c 6.4 H (0.0-6.0) % AST (17-59) U/L ALT (4-49) U/L Total Protein (6.3-8.2) g/dL Albumin (3.5-5.0) g/dL Procalcitonin 0.31 H (0.02-0.09) ng/mL 02/10/22 02/11/22 02/11/22 Range/Units 20:17 04:07 04:07 WBC 15.7 H (3.8-10.6) k/uL Hgb 12.8 L (13.0-17.5) gm/dL Neutrophils # 10.7 H (1.3-7.7) k/uL PT (9.0-12.0) sec INR (<1.2) Sodium 134 L (137-145) mmol/L Chloride 94 L (98-107) mmol/L BUN 34 H (9-20) mg/dL Creatinine 1.28 H (0.66-1.25) mg/dL Glucose 115 H (74-99) mg/dL POC Glucose (mg/dL) 201 H (70-110) mg/dL Hemoglobin A1c (0.0-6.0) % AST 66 H (17-59) U/L ALT 71 H (4-49) U/L Total Protein 5.8 L (6.3-8.2) g/dL Albumin 3.3 L (3.5-5.0) g/dL Procalcitonin (0.02-0.09) ng/mL 02/11/22 02/11/22 Range/Units 04:07 06:39 WBC (3.8-10.6) k/uL Hgb (13.0-17.5) gm/dL Neutrophils # (1.3-7.7) k/uL PT 20.4 H (9.0-12.0) sec INR 2.0 H (<1.2) Sodium (137-145) mmol/L Chloride (98-107) mmol/L BUN (9-20) mg/dL Creatinine (0.66-1.25) mg/dL Glucose (74-99) mg/dL POC Glucose (mg/dL) 114 H (70-110) mg/dL Hemoglobin A1c (0.0-6.0) % AST (17-59) U/L ALT (4-49) U/L Total Protein (6.3-8.2) g/dL Albumin (3.5-5.0) g/dL Procalcitonin (0.02-0.09) ng/mL Assessment and Plan Assessment: 1. Bicuspid calcific aortic stenosis/insufficiency, status post aortic valve replacement with 25 mm On-X mechanical valve 2. Coronary artery disease status post stent placement to his right coronary artery in 2018 3. History of Hypertension 4. History of Hyperlipidemia, on atorvastatin 80 mg by mouth daily at bedtime on an outpatient basis 5. History of pulmonary embolus, was on Eliquis for anticoagulation on an outpatient basis 6. Chronic obstructive pulmonary disease, with a preoperative FEV1 57% of predicted value with a base of 2.01 L 7. Severe symptomatic obstructive sleep apnea, currently does not use CPAP therapy at home 8. Chronic ongoing tobacco dependence, smokes an occasional cigar 9. History of COVID-19 in June 2021 10. Morbid obesity with a BMI of 41.1 kg/m 11. Borderline diabetes mellitus type 2 with a preoperative hemoglobin A1c of 6.4%, diet-controlled 12. Family history of coronary artery disease with his father having a myocardial infarction at age 48 13. Postoperative acute blood loss anemia, expected given hemodilution and c ardiopulmonary bypass 14. Acute kidney injury, possibly secondary to hypotension 15. Postoperative paroxysmal atrial fibrillation, a known common occurrence after cardiac surgery, currently in normal sinus rhythm 16. Leukocytosis, unexpected, unknown etiology, trending down Plan: 1. Continue to maximize medical therapy with low-dose aspirin, statin, and beta milton. Will increase metoprolol tartrate as tolerated. 2. Continue amiodarone to 200 mg by mouth twice a day for atrial fibrillation prophylaxis. He will be discharged home on amiodarone 200 mg by mouth twice a day for 1 week until 02/18/2022, on 02/19/2022 he will decrease his amiodarone to 200 mg by mouth daily for 1 week 3 and then discontinue.. Encourage incentive spirometry 10 times every hour while awake. Bronchodilators per pulmonology/critical care medicine. Continue Symbicort 804 0.5 g 2 puffs twice a day. BiPAP management per pulmonary/critical care recommendations. 4. Increase activity, ambulate as tolerated. PT/OT/cardiac rehab following. 5. Will monitor daily labs. Electrolyte replacement per protocol. Pro- calcitonin level was 0.31. 6. GI and DVT prophylaxis. 7. Pain control with current medication regimen. Avoid nephrotoxic agents. 8. Insulin management per primary care service. Borderline diabetic with a preoperative hemoglobin A1c 6.4%. 9. INR is 2.0 today and we will give Coumadin 2.5 mg by mouth today and daily . Continue to monitor PT and INR every Friday and with goal INR for first 3 months 2-3, after 3 months goal INR 1.5-2. Patient has an On-X mechanical aortic valve. 10. He will be discharged home on Lasix 20 mg by mouth daily. Continue to record strict accurate intake and output. Daily weights. 12. The importance of risk modification including smoking cessation have been discussed with the patient. Smoking cessation education and counseling was provided, patient was strongly encouraged to quit smoking. 13. Shower daily. 14. Discharge planning is in place and will be followed with [facility] health care, anticipate discharge home within the next 24 hours. 15. More recommendations to follow based on patient's clinical course. Time with Patient: Greater than 30
--- NOTE | 2022-02-11 12:27 | P.PN ---
Subjective Progress Note Date: 02/11/22 On 02/11/2022, I'm seeing this patient for a follow-up. The patient is doing extremely well. The patient is currently intensive care unit as is recovering from his cardiac surgery. The patient is postop day #11 for an aortic valve replacement that was done for an underlying bicuspid aortic valve and the patient has a mechanical valve in place. He is known also to have COPD maintenance on November abdominal patient basis and the patient has advanced and severe COPD with an AHI of 60 and he has not received his CPAP/BiPAP machine yet. He is known to have coronary artery disease with previous coronary stent placed back in 2019. He has chronic back pain and previous history of pulmonary embolism treated with anticoagulation. Note that the patient got transferred to the intensive care unit again after he developed an atrial fibrillation with rapid ventricular response and the patient was also hypotensive and developed acute kidney injury. Note that the patient is improved considerably and his hemodynamics is improved and the patient converted into sinus rhythm again. The patient is using incentive spirometer. His bowling approximately 2000 on his incentive spirometer. He is using the BiPAP overnight and he is quite comfortable while using the BiPAP and is able to tolerate without any major difficulties. Currently is on room air oxygen. He is using incentive spirometer. His echocardiogram was repeated and the patient was found to have an ejection fraction of 45-50%. A small pericardial effusion without evidence of any temporal. His INR is therapeutic today and the patient was given articulation with warfarin. His INR level is at 2.0. No fever. No chills. Hemodynamically stable. His blood work shows a BUN of 34 with a creatinine of 1.28 and a sodium level of 134. His white cell count is 15.7 with a hemoglobin of 12.8. Chest x-ray showing post thoracotomy changes. No other acute abnormalities. No airspace disease. No altered mentation. No focal neurologic al deficits. Objective - Vital Signs Vital signs: Vital Signs Temp 98 F 02/11/22 12:00 Pulse 86 02/11/22 12:00 Resp 16 02/11/22 12:00 BP 97/54 02/11/22 12:00 Pulse Ox 95 02/11/22 12:00 FiO2 30 02/11/22 03:04 Intake & Output 02/10/22 02/11/22 02/11/22 18:59 06:59 18:59 Intake Total 1280 350 540 Balance 1280 350 540 Weight 109.6 kg Intake: Intake, IV Titration 200 Amount Magnesium Sulfate-D5w Pmx 200 1 gm In Dextrose/Water 1 100ml.bag @ 100 mls/hr IVPB Q1H [facility] Rx#: [id number] Oral 1080 350 540 Other: Voiding Method Toilet Toilet Toilet # Voids 1 1 1 ABP, PAP, CO, CI - Last Documented Arterial Blood Pressure 102/63 Pulmonary Artery Pressure 27/10 Cardiac Output 5.5 Cardiac Index 2.5 - Exam CONSTITUTIONAL: Sitting up to the bedside chair in the intensive care unit, appears comfortable, cooperative, no apparent acute distress. HEENT: Neck is supple, no JVD, no lymphadenopathy. RESPIRATORY: Lungs sounds essentially clear throughout, diminished to his bilateral bases. Respirations are symmetrical and nonlabored. Currently on room air with oxygen saturations 97%. Able to achieve 2000 mL on his incentive spirometry. Strong cough. CARDIOVASCULAR: Regular rhythm and rate. S1 and S2 present with mechanical valvular click, negative for S3, gallop or murmur. Sternum is stable. Palpable peripheral pulses bilaterally, trace edema to his bilateral lower extremities. No calf pain or tenderness noted. Surgical support bra and Heart hugger in place with patient demonstrating appropriate use. Knee-high MICHELLE hose and sequential compression devices in place to his bilateral lower extremities. Bedside telemetry showing normal sinus rhythm with a heart rate of 89 bpm. GASTROINTESTINAL: Abdomen soft, nontender, nondistended. Active bowel sounds present 4 quadrants. Tolerating diet. Passing flatus. No guarding or rigidity. Bowel movement today 02/11/2022. GENITOURINARY: Continues to void. INTEGUMENTARY: Skin is warm and dry with no evidence of clubbing or cyanosis. Midline sternal incision clean dry and well approximated, covered with dry intact dressing. NEUROLOGIC: Cranial nerves II through XII intact. No focal deficits. MUSKULOSKELETAL: Able to move all extremities, strength equal bilaterally. PSYCHIATRIC: Alert and oriented to person place and time, appropriate affect, intact judgment and insight. - Labs CBC & Chem 7: 02/11/22 04:07 02/11/22 04:07 Labs: Abnormal Lab Results - Last 24 Hours (Table) 02/09/22 02/09/22 02/10/22 Range/Units 09:01 22:15 16:58 WBC (3.8-10.6) k/uL Hgb (13.0-17.5) gm/dL Neutrophils # (1.3-7.7) k/uL PT (9.0-12.0) sec INR (<1.2) Sodium (137-145) mmol/L Chloride (98-107) mmol/L BUN (9-20) mg/dL Creatinine (0.66-1.25) mg/dL Glucose (74-99) mg/dL POC Glucose (mg/dL) 150 H (70-110) mg/dL Hemoglobin A1c 6.4 H (0.0-6.0) % AST (17-59) U/L ALT (4-49) U/L Total Protein (6.3-8.2) g/dL Albumin (3.5-5.0) g/dL Procalcitonin 0.31 H (0.02-0.09) ng/mL 02/10/22 02/11/22 02/11/22 Range/Units 20:17 04:07 04:07 WBC 15.7 H (3.8-10.6) k/uL Hgb 12.8 L (13.0-17.5) gm/dL Neutrophils # 10.7 H (1.3-7.7) k/uL PT (9.0-12.0) sec INR (<1.2) Sodium 134 L (137-145) mmol/L Chloride 94 L (98-107) mmol/L BUN 34 H (9-20) mg/dL Creatinine 1.28 H (0.66-1.25) mg/dL Glucose 115 H (74-99) mg/dL POC Glucose (mg/dL) 201 H (70-110) mg/dL Hemoglobin A1c (0.0-6.0) % AST 66 H (17-59) U/L ALT 71 H (4-49) U/L Total Protein 5.8 L (6.3-8.2) g/dL Albumin 3.3 L (3.5-5.0) g/dL Procalcitonin (0.02-0.09) ng/mL 02/11/22 02/11/22 Range/Units 04:07 06:39 WBC (3.8-10.6) k/uL Hgb (13.0-17.5) gm/dL Neutrophils # (1.3-7.7) k/uL PT 20.4 H (9.0-12.0) sec INR 2.0 H (<1.2) Sodium (137-145) mmol/L Chloride (98-107) mmol/L BUN (9-20) mg/dL Creatinine (0.66-1.25) mg/dL Glucose (74-99) mg/dL POC Glucose (mg/dL) 114 H (70-110) mg/dL Hemoglobin A1c (0.0-6.0) % AST (17-59) U/L ALT (4-49) U/L Total Protein (6.3-8.2) g/dL Albumin (3.5-5.0) g/dL Procalcitonin (0.02-0.09) ng/mL Assessment and Plan Plan: Postop day #11, status post aortic valve replacement, with mechanical valve, for aortic stenosis. On warfarin with a therapeutic PT/INR Bicuspid aortic valve, with aortic stenosis/insufficiency. Routine postoperative ventilator management. Recovered and on room air Postoperative atrial fibrillation, recurrent on 02/09/2022, converted back to sinus rhythm on 02/02/2022. On oral amiodarone.. The patient's cardiac rhythm remains sinus. The patient is also on IV correlation with warfarin with a therapeutic PT/INR. Hypertension. History of pulmonary embolism. 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 Severe obstructive sleep apnea syndrome, with an apnea/hypoxia index of 60. The patient will be undergoing a CPAP/BiPAP titration at a later stage on outpatient basis Obesity. History of coronavirus infection, June 2021. Type 2 diabetes mellitus. Family history of CAD. Acute kidney injury, improving and the creatinine is down to 1.28 Plan: The patient is doing extremely well Patient is on room air oxygen The patient normal sinus rhythm The patient is hemodynamically stable The patient is fully anticoagulated and INR is therapeutic Increase mobility Continues incentive spirometer Chest x-ray the blood work was noted We'll continue to follow
[2022-02-11 13:10] VITALS: TEMP 98
--- NOTE | 2022-02-11 13:25 | P.DS ---
Providers Date of admission: 01/31/22 05:35 Expected date of discharge: 02/11/22 Attending physician: Stan Carroll Consults: 01/31/22 13:38 Consult Physician Routine Consulting Provider: Dallin Hodges Consult Reason/Comments: Mastic Sprayer Consult: post cardiac surgery Do you want consulting provider notified?: Yes Consult Physician Routine Consulting Provider: Miguel Mejias Consult Reason/Comments: Accounting Director Consult: post cardiac surgery Do you want consulting provider notified?: Yes Consult Physician Routine Consulting Provider: Eber Wheeler Consult Reason/Comments: med rosie; Matt patient Do you want consulting provider notified?: Yes Primary care physician: Tiffany Gutierrez [facility] Course: FINAL DIAGNOSIS: 1. Bicuspid calcific aortic stenosis/insufficiency, status post aortic valve replacement with 25 mm On-X mechanical valve 2. Coronary artery disease status post stent placement to his right coronary artery in 2018 3. History of Hypertension 4. History of Hyperlipidemia, on atorvastatin 80 mg by mouth daily at bedtime on an outpatient basis 5. History of pulmonary embolus, was on Eliquis for anticoagulation on an outpatient basis 6. Chronic obstructive pulmonary disease, with a preoperative FEV1 57% of predicted value with a base of 2.01 L 7. Severe symptomatic obstructive sleep apnea, currently does not use CPAP therapy at home 8. Chronic ongoing tobacco dependence, smokes an occasional cigar 9. History of COVID-19 in June 2021 10. Morbid obesity with a BMI of 41.1 kg/m 11. Borderline diabetes mellitus type 2 with a preoperative hemoglobin A1c of 6.4%, diet-controlled as an outpatient 12. Family history of coronary artery disease with his father having a myocardial infarction at age 48 13. Postoperative acute blood loss anemia, expected given hemodilution and cardiopulmonary bypass 14. Acute kidney injury, possibly secondary to hypotension 15. Postoperative paroxysmal atrial fibrillation, a known common occurrence after cardiac surgery, currently in normal sinus rhythm, status post exclusion of the left atrial appendage with a 35 mm Atricure clip 16. Leukocytosis, unexpected, unknown etiology, trending down PRINCIPAL PROCEDURE: 1. Aortic valve replacement with a 25 mm On-X mechanical valve 2. Ligation of the left atrial appendage with a 35 mm Aticure clip 3. Epi-aortic ultrasonography 4. Patch closure of aortotomy with bovine pericardium HISTORY OF PRESENT ILLNESS: This is a 51-year-old gentleman who follows up for his primary care service with Tosha Carrillo nurse practitioner and Dr. Arroyo for his cardiology care on an outpatient basis. Recently, the patient has been having complaints of dyspnea on exertion which has been progressing over around a 6 month to year time frame. He did have a diagnosis of COVID-19 in June 2021, but despite recovering from COVID-19 he remained to have symptoms of severe dyspnea with activity and reports he could barely climb a flight of stairs. Due to his dyspnea has been off work since September [id number] since his diagnosis of severe bicuspid aortic valve stenosis. Due to the p atient's above-mentioned symptoms he underwent a transesophageal echocardiogram which demonstrated a bicuspid aortic valve and his transthoracic 2-D echocardiogram showed moderate to severe aortic valve stenosis with a valve area just below 1 cm, a mean gradient of 35 mmHg, and a peak gradient of 56 mmHg. It also showed that his valve is fairly heavily calcified and a fused left and right coronary cusps. On the transesophageal echocardiogram is non-coronary cusp was the only cusp that seemed to be moving. Also as part of his workup and due to his history of a stent placement to his right coronary artery he underwent a repeat coronary angiography which showed no significant stenosis with a patent stent in the right coronary artery. Subsequently, because of the patient's symptoms, and findings on the above-mentioned studies a consult was placed to Dr. Stan Carroll from cardiothoracic surgery for further evaluation and treatment recommendations. Dr. Carroll met with the patient and the patient's , discussed findings on the YASH, TTE and cardiac catheterization, discussed treatment options including surgical aortic valve replacement. Indications for valve surgery, risks versus benefits, possible complications, the STS risk score and lifelong Coumadin therapy issues were discussed with the patient by Dr. Carroll, and knowing and understanding the risks, the patient wished to proceed with the surgical option with a mechanical On-X valve. HOSPITAL COURSE: On 01/31/2022 the patient was admitted to the hospital, and after obtaining consent was taken to the operating room where Dr. Stan Carroll performed an aortic valve replacement with a 25 mm On-X mechanical valve, ligation of the left atrial appendage with a 35 mm Atricure clip, epi-aortic ultrasonography and patch closure of aortotomy with bovine pericardium. Upon completion of the surgery the patient was taken to the cardiovascular intensive care unit where he was recovered and monitored hemodynamically. He was extubated, all lines, tubes and supportive drips were discontinued when appropriate and he was transferred to the cardiac stepdown unit for further monitoring and rehabilitation. Subsequently due to some episodes of paroxysmal atrial fibrillation and hypotension the patient was transferred back to the intensive care unit for further monitoring and evaluation. His oxygen was titrated down, he continued to work with physical/occupational therapy and cardiac rehabilitation, he was tolerating an oral diet, his pain was well controlled without narcotics and he was ready to be discharged home with visiting nurses [facility] on postoperative day #11. He has received verbal and written instructions regarding his medications, activity restrictions, signs and symptoms requiring physician notification and his follow-up appointment. The importance of risk modification including smoking cessation have been discussed with the patient. Smoking cessation education and counseling was provided, patient was strongly encouraged to quit smoking. Plan - Discharge Summary Discharge Rx Participant: Yes New Discharge Prescriptions: New Warfarin [Coumadin] 2.5 mg PO DAILY@1800 #30 tab Atorvastatin [Lipitor] 40 mg PO HS #30 tab Pantoprazole [Protonix] 40 mg PO AC-BRKFST #30 tab Acetaminophen Tab [Tylenol] 650 mg PO Q4HR PRN tab PRN Reason: Fever And/ Or Pain Furosemide [Lasix] 20 mg PO DAILY #30 tab Metoprolol Tartrate [Lopressor] 75 mg PO BID #180 tab Glimepiride [Amaryl] 2 mg PO BID #120 tab Amiodarone [Cordarone] 200 mg PO BID #20 tab Continue Aspirin 81 mg PO DAILY #30 chew Nitroglycerin Sl Tabs [Nitrostat] 0.4 mg SUBLINGUAL Q5M PRN #25 tab PRN Reason: Chest Pain Ergocalciferol [Vitamin D2 (1250 Mcg = 75526 Iu)] 1,250 mcg PO MO Albuterol Inhaler [Ventolin Hfa Inhaler] 2 puff INHALATION RT-QID PRN PRN Reason: Shortness Of Breath Fluticasone/Umeclidin/Vilanter [Trelegy Ellipta 100-62.5-25] 1 inhalation INHALATION DAILY Fenofibrate [Lofibra] 160 mg PO DAILY 30 Days #30 tab Discontinued Atorvastatin [Lipitor] 80 mg PO HS #30 tab Clopidogrel [Plavix] 75 mg PO DAILY #30 tab Metoprolol Succinate [Toprol XL] 50 mg PO DAILY lisinopriL [Zestril] 5 mg PO DAILY Losartan [Cozaar] 25 mg PO DAILY Mupirocin [Mupirocin 2%] 1 applic NASAL BID #1 tub Discharge Medication List Aspirin 81 mg PO DAILY #30 chew 01/21/19 [Rx] Nitroglycerin Sl Tabs [Nitrostat] 0.4 mg SUBLINGUAL Q5M PRN #25 tab 01/21/19 [Rx] Albuterol Inhaler [Ventolin Hfa Inhaler] 2 puff INHALATION RT-QID PRN 10/01/21 [History] Ergocalciferol [Vitamin D2 (1250 Mcg = 25021 Iu)] 1,250 mcg PO MO 10/01/21 [History] Fenofibrate [Lofibra] 160 mg PO DAILY 30 Days #30 tab 10/03/21 [Rx] Fluticasone/Umeclidin/Vilanter [Trelegy Ellipta 100-62.5-25] 1 inhalation INHALATION DAILY 01/30/22 [History] Acetaminophen Tab [Tylenol] 650 mg PO Q4HR PRN tab 02/11/22 [Rx] Amiodarone [Cordarone] 200 mg PO BID #20 tab 02/11/22 [Rx] Atorvastatin [Lipitor] 40 mg PO HS #30 tab 02/11/22 [Rx] Furosemide [Lasix] 20 mg PO DAILY #30 tab 02/11/22 [Rx] Glimepiride [Amaryl] 2 mg PO BID #120 tab 02/11/22 [Rx] Metoprolol Tartrate [Lopressor] 75 mg PO BID #180 tab 02/11/22 [Rx] Pantoprazole [Protonix] 40 mg PO AC-BRKFST #30 tab 02/11/22 [Rx] Warfarin [Coumadin] 2.5 mg PO DAILY@1800 #30 tab 02/11/22 [Rx] Follow up Appointment(s)/Referral(s): Yvonne Negrete NPC [Nurse Practitioner] - 02/19/22 11:00 am Rehab Pradip PH,Cardiac [NON-STAFF] - 1 Week Eber Wheeler MD [STAFF PHYSICIAN] - 1 Week Stan Carroll MD [STAFF PHYSICIAN] - 03/07/22 10:00 am Tosha Carrillo NPC [Nurse Practitioner] - 02/15/22 12:45 pm Gonzales Jin MD [STAFF PHYSICIAN] - 02/25/22 11:30 am Giancarlo Garcia MD [STAFF PHYSICIAN] - 03/01/22 9:30 am [facility], [NON-STAFF] - ([facility] will call you to arrange a visit) Ambulatory/Diagnostic Orders: Complete Blood Count w/diff [LAB.AMB] Time Frame: 02/14/22, Facility: [facility], Location: Laboratory [facility] Comprehensive Metabolic Panel [LAB.AMB] Time Frame: 02/14/22, Facility: [facility], Location: Laboratory [facility] Prothrombin Time INR [LAB.AMB] Time Frame: 02/14/22, Facility: [facility], Location: [facility] Activity/Diet/Wound Care/Special Instructions: DISCHARGE INSTRUCTIONS: 1. No driving for 4 weeks, or until physician gives their ok. 2. The patient should sleep in their own bed, no medical bed needed. 3. Stairs are not an issue. If the bedroom is upstairs, it is advised that the patient go up at night and down in the morning for the first week. Go slowly, using handrail and take 1 step at a time. 4. MICHELLE hose are to be worn for 30 days or until physician discontinues. 5. Heart hugger is to be worn 100% of the time until physician discontinues.(except when showering) 6. No lifting, pushing, or pulling more than 10 pounds for 12 weeks. The physician will advise of any restriction changes. 7. The patient is expected to continue the prescribed walking program. 8. Continue pain control per as needed orders. 9. Continue with incentive spirometry and splinting/heart hugger until otherwise directed by the physician. 10. Must shower daily using liquid antibacterial soap and a separate white washcloth for each individual incision. 11. Routine sternal incision care. No powders, lotions, ointments on incisions. No dressings are necessary on incisions unless they are draining. Dermabond tape is to remain on sternal incision until surgeon follow-up. 12. Please call surgeon/ROUGHING MILL OPERATOR for temp greater than 101 F or purulent drainage from incisions. 13. All prescriptions given by surgeon for 30 days. Refills need to be filled through hazard waste handler/primary care physician. 14. A Red armband has been placed on the patient. It should be worn for 30 days post surgery and will be removed by the cardiac surgeons. If an ER visit is necessary, please make sure the number on the Red armband is called. 15. You have been referred to and are expected to begin Cardiac Rehab in approximately 4-6 weeks. 16. Check PT and INR every Mondays and for Coumadin dosing. Please fax results to [phone] Carroll. Goal INR for the first 3 months is 2-3, after the 3 months goal rate is 1.5-2. Coumadin 2.5 mg by mouth today and daily until PT and INR is checked on 02/14/2022. 17. Please check blood sugars before meals and at bedtime, make a log of your blood sugars and bring your log of the blood sugars on follow-up with your primary care Tosha Carrillo nurse practitioner. HOME HEALTH SERVICES TO PROVIDE: RN SKILLED HOME CARE SERVICES FOR POST-OP SURGICAL PATIENTS WITH THE FOLLOWING: Coronary Artery Bypass Surgery (CABG), Mitral Valve Replacem ent/Repair ( MVR), Aortic Valve Replacement/Repair (AVR) RN TO CONTINUE EDUCATION FROM ``ROAD TO A HEALTH HEART PATIENT EDUCATION MANUAL (GIVEN TO PATIENT IN THE HOSPITAL) MEDICATION RECONCILIATION WITH EDUCATION NEEDED ON FIRST HOME VISIT EMPHASIZE IMPORTANCE OF WEARING BREAST SUPPORT/HEART HUGGER ENCOURAGE USE OF INCENTIVE SPIROMETER 10 X EVERY HOUR WHILE AWAKE ENCOURAGE UTILIZATION OF LOWER EXTREMITY COMPRESSION STOCKINGS/MICHELLE HOSE and ELEVATE LEGS ABOVE LEVEL OF HEART WHILE AT REST. ENCOURAGE AMBULATION 3-5x/day INCREASING TOLERATES, WHILE AVOIDING EXTREMES IN TEMPERATURE FREQUENCY: RN TO OPEN THE PATIENT WITHIN 24 HOURS OF DISCHARGE FROM THE HOSPITAL WITH TELEHEALTH INSTALLED AT [facility], RN TO VISIT 2-3 X A WEEK FOR 4 WEEKS ESTABLISHED BY PATIENT NEEDS. LABORATORY: CBC, CMP TO BE DRAWN ON THE THIRD DAY HOME, (RAN STAT) FAX RESULTS TO [phone]. Check PT and INRs every Mondays and for Coumadin dosing. TELEHEALTH PARAMETERS: WEIGHT: NOTIFY MD OF WEIGHT GAIN OF 2 LBS IN 24 HOURS OR 5 LBS IN ONE WEEK HR: NOTIFY MD OF HR <55 BPM OR HR>100 BPM BP: NOTIFY MD IF BP <90/55 OR BP>140/100 O2 SAT: NOTIFY MD IF PO2<93% ON ROOM AIR SEND TELEHEALTH REPORT TO MANAGER IT SECURITY AND CARDIOVASCULAR SURGEON THE FIRST WEEK OF CARE AND THEN BI-WEEKLY. PLEASE ADDITIONALLY COMMUNICATE ANY ABNORMALS AND NEW FINDINGS TO THE SURGEONS OFFICE. For any questions or concerns please call flight test shop mechanic Yvonne @ or Joe @ Discharge Disposition: HOME WITH HOME HEALTH SERVICES
[2022-02-11 13:27] VITALS: BP 107/58; PULSE 87; RESP 14
--- NOTE | 2022-02-11 14:50 | P.PN ---
Subjective Progress Note Date: 02/11/22 - History of Present Illness 02/01/22 This is a 51-year-old gentleman with past medical history of CAD, SC, stenting of RCA ,PE on Eliquis, COPD, obstructive sleep apnea ,diabetes mellitus, gastroesophageal reflux disease, hypertension, hyperlipidemia, nicotine dependence, morbid obesity, Covid June 2021-continued to have progressive exertional shortness of breath, YASH reported normal LV function, moderate aortic stenosis with [id number] aortic regurgitation involving heavily calcified bicuspid aortic valve. Patient is status post Bicuspid calcified aortic stenosi s/insufficiency status post AVR, ligation of left atrial appendage, postop day #1, tolerated procedure well. Extubated last night and currently maintaining O2 sats in the 90s on 15 L high flow nasal cannula. Incentive spirometer 7-800. Complains of chest tube discomfort. Chest x-ray reporting postop changes, scattered pleural progression multiple PACs, most likely atelectasis. Afebrile, WBC 11.4, hemoglobin 12.4, platelets 164 creatinine increased to 1.23, blood sugars controlled on insulin drip. CO/CI 5.5/2.5. Transitioned to oral amiodarone. Telemetry sinus rhythm. 02/04/2022 diuresing well on IV push Lasix with 24-hour I&O reflecting a negative fluid balance, weight down 1.7 kg. sitting up in chair, reports pain better controlled. Minimal exertional shortness of breath, slept in the chair last night. Requiring 4 L nasal cannula O2 to maintain O2 sats in the 90s. Chest x-ray reporting multifocal airspace opacity's, suggestive of pulmonary edema, not significantly changed from prior.Creatinine 1.45. Blood sugars controlled. Sodium 132. INR elevated,7, repeated level 8.5. anticoagulated on Coumadin for mechanical aortic valve,continues on amiodarone for paroximal A. fi b, currently sinus rhythm. Afebrile, WBC 11.1. 02/05/2022 diuresing well, on Lasix IV push with 24-hour I&O reflecting a negative fluid balance, oxygen further weaned down to 2 L nasal cannula. Re ports IS up to 2000. Chest x-ray reporting improvement in bilateral interstitial opacity's from prior exam.Tachycardia, telemetry atrial fibrillation, received amiodarone in addition to beta milton. INR greater than 10, vitamin K ,platelets ordered as per cardiothoracic surgery. Tbili 0.5, AST 53, ALT 54, alk phos 77, Renal function improving. Diet intake 25% this am. Denies nausea or vomiting. Reports positive bowel movement this morning. Denies chills or sweats. 02/06/2022 required BiPAP for a couple hours during the night, currently maintaining O2 sats in the mid 90s on 3 L nasal cannula. Chest x-ray pending.Sinus rhythm. INR decreased to 1.7 today, post vitamin K yesterday. Re ports increased diet intake with no nausea or vomiting. Blood sugars controlled. BUN 39, creatinine 1.21 .Reports he ambulated yesterday, tolerating exertion well. 02/07/2022 significant clinical improvement. Oxygen weaned off, maintaining O2 sats 90-92%. Maintained on oral amiodarone, beta blockers, telemetry sinus rhythm. Transthoracic echo completed yesterday reporting limited study , moderately increased left ventricular wall thickness, EF estimated at 50-55%, paradoxical septal motion consistent with postoperative state, small pericardial effusion . INR 2.6. BUN 35, creatinine 1.24. Afebrile, WBC 13.2. Continues on Lasix IVP, 24-hour I&O reflecting a negative fluid balance. Chest x-ray reporting mild central vascular congestion with tiny bilateral pleural effusions, improving compared to prior exam. Reports he ambulated further yesterday, tolerating exertion well. Blood sugars controlled. 02/08/22 transferred out of ICU yesterday afternoon. Telemetry sinus rhythm, maintaining O2 sats in the 90s on room air. INR 3.4, Coumadin on hold for today. Creatinine 1.27. Blood sugars controlled. Afebrile, WBC 12.5. Chest x- ray reporting cardiomegaly with stable mild pulmonary vascular congestion. 02/11/2022 over the weekend patient required transfer back into the ICU secondary to recurrent A. fib with RVR, hypotension, worsening renal function. Chest CT reported new moderate pericardial effusion. Repeat echo reported small pericardial effusion with no evidence of tamponade, EF 45-50%. BiPAP overnight. Maintaining O2 sats in the 90s on room air, systolic blood pressures in the 90s to 100s. Telemetry sinus rhythm. Anticoagulated on Coumadin, INR 2. Incentive spirometer up to 1999. Consuming 50-75%, denies nausea vomiting or diarrhea. Positive bowel movement this morning. BUN 34, creatinine 1.28. Afebrile, WBC 15.7. Feels well. Denies palpitations, denies increased shortness of breath. Objective - Vital Signs Vital signs: Vital Signs Temp 98.1 F 02/11/22 08:00 Pulse 93 02/11/22 09:00 Resp 16 02/11/22 09:00 BP 112/65 02/11/22 09:00 Pulse Ox 97 02/11/22 08:00 FiO2 30 02/11/22 03:04 Intake & Output 02/10/22 02/11/22 02/11/22 18:59 06:59 18:59 Intake Total 1280 350 300 Balance 1280 350 300 Weight 109.6 kg Intake: Intake, IV Titration 200 Amount Magnesium Sulfate-D5w Pmx 200 1 gm In Dextrose/Water 1 100ml.bag @ 100 mls/hr IVPB Q1H [facility] Rx#: [id number] Oral 1080 350 300 Other: Voiding Method Toilet Toilet Toilet # Voids 1 1 1 ABP, PAP, CO, CI - Last Documented Arterial Blood Pressure 102/63 Pulmonary Artery Pressure 27/10 Cardiac Output 5.5 Cardiac Index 2.5 - Exam PHYSICAL EXAM: VITAL SIGNS: [As above] GENERAL: Alert and oriented 3, Sitting up in chair,NAD HEENT: Conjunctivae normal. eyes normal. MMM. NECK: Supple, No JVD. CARDIOVASCULAR: S1, S2 regular. mechanical click, wearing heart hugger. Minimal bilateral lower extremity edema, wearing knee-high MICHELLE hose. RESPIRATION: Unlabored, Equal air entry, bilateral bases diminished. ABDOMEN: Soft, nondistended, nontender . No guarding. +BS NERVOUS SYSTEM: Cranial N 2-12 grossly normal.No focal deficits.Strength and sensation grossly intact. Skin: Warm and dry, no rash - Labs CBC & Chem 7: 02/11/22 04:07 02/11/22 04:07 Labs: Abnormal Lab Results - Last 24 Hours (Table) 02/09/22 02/09/22 02/10/22 Range/Units 09:01 22:15 16:58 WBC (3.8-10.6) k/uL Hgb (13.0-17.5) gm/dL Neutrophils # (1.3-7.7) k/uL PT (9.0-12.0) sec INR (<1.2) Sodium (137-145) mmol/L Chloride (98-107) mmol/L BUN (9-20) mg/dL Creatinine (0.66-1.25) mg/dL Glucose (74-99) mg/dL POC Glucose (mg/dL) 150 H (70-110) mg/dL Hemoglobin A1c 6.4 H (0.0-6.0) % AST (17-59) U/L ALT (4-49) U/L Total Protein (6.3-8.2) g/dL Albumin (3.5-5.0) g/dL Procalcitonin 0.31 H (0.02-0.09) ng/mL 02/10/22 02/11/22 02/11/22 Range/Units 20:17 04:07 04:07 WBC 15.7 H (3.8-10.6) k/uL Hgb 12.8 L (13.0-17.5) gm/dL Neutrophils # 10.7 H (1.3-7.7) k/uL PT (9.0-12.0) sec INR (<1.2) Sodium 134 L (137-145) mmol/L Chloride 94 L (98-107) mmol/L BUN 34 H (9-20) mg/dL Creatinine 1.28 H (0.66-1.25) mg/dL Glucose 115 H (74-99) mg/dL POC Glucose (mg/dL) 201 H (70-110) mg/dL Hemoglobin A1c (0.0-6.0) % AST 66 H (17-59) U/L ALT 71 H (4-49) U/L Total Protein 5.8 L (6.3-8.2) g/dL Albumin 3.3 L (3.5-5.0) g/dL Procalcitonin (0.02-0.09) ng/mL 02/11/22 02/11/22 Range/Units 04:07 06:39 WBC (3.8-10.6) k/uL Hgb (13.0-17.5) gm/dL Neutrophils # (1.3-7.7) k/uL PT 20.4 H (9.0-12.0) sec INR 2.0 H (<1.2) Sodium (137-145) mmol/L Chloride (98-107) mmol/L BUN (9-20) mg/dL Creatinine (0.66-1.25) mg/dL Glucose (74-99) mg/dL POC Glucose (mg/dL) 114 H (70-110) mg/dL Hemoglobin A1c (0.0-6.0) % AST (17-59) U/L ALT (4-49) U/L Total Protein (6.3-8.2) g/dL Albumin (3.5-5.0) g/dL Procalcitonin (0.02-0.09) ng/mL Assessment and Plan Assessment: Symptomatic Bicuspid calcified aortic stenosis and insufficiency status post AVR with mechanical valve, ligation of left atrial appendage Acute Hypoxic respiratory failure,post extubation, requiring 15 L high flow nasal cannula, improving, currently down to 4 L NC Atelactasis, postoperative, expected Postoperative paroxysmal atrial fibrillation, postop, expected outcome Hypercoagulopathy, on Coumadin, postop, status post vitamin K, resolved CAD, history of SC, stents History of COVID June 2021 COPD Obstructive sleep apnea, Diabetes mellitus hemoglobin A1c 6.4 Gastroesophageal reflux disease Hypertension Hyperlipidemia Nicotine dependence Morbid obesity, BMI 41.1 Plan: Continue on current medication regime ,monitoring and symptomatic treatment. Discharge planning in progress as per cardiothoracic surgery.smoking cessation reinforced, continue using incentive spirometer every hour 10 while awake . No insulin required at discharge, will recommend/escribed glimepiride 2 mg twice a day with meals. Maintain log of Accu-Cheks before meals and at bedtime, bring to follow-up visit with PCP for further recommendations. Follow- up with PCP in one week. The impression and plan of care has been dictated as directed. : I performed a history and examination of this patient, discussed the same with the dictator. I agree with the dictator's note ,documented as a scribe. Any additional findings or plans will be noted.
[2022-02-11] MEDS ORDERED: WARFARIN 2.5 MG TAB PO SCH (18:00)
--- NOTE | 2022-02-12 14:27 | CDI ---
Documentation Clarification Form Date: 02/12/2022 02:09:19 PM From: Roxanna Hook Phone: Admit Date: 01/31/2022 05:35:00 AM Patient Name: Ac Munoz Visit Number: [id number] Discharge Date: 02/11/2022 02:14:00 PM ATTENTION: The Clinical Documentation Specialists (CDI) and [facility] Coding Staff appreciate your assistance in clarifying documentation. Please respond to the clarification below the line at the bottom and electronically sign. The CDI & [facility] Coding staff will review the response and follow-up if needed. Please note: Queries are made part of the Legal Health Record. If you have any questions, please contact the author of this message via ITS. Dr. Stan Carroll Unspecified CKD is documented 02/04/22 Progress Note. Additional clarification regarding the stage of CKD is requested. History/Risk Factors: 51yo M, CAD, MR, HTN, Hx PE, COPD, aortic stenosis, Post Op atelectasis, AHRF, CONNIE, post op Prox A Fib, ABLA, DMII Clinical Indicators: BUN 17; Creatinine 1.23 01/31/22 BUN 41; Creatinine 1.59 02/03/22 BUN 34, creatinine 1.28 02/11/22 Treatment: continue the current medical regimen. Continue IV diuretics. He continues to be fluid overload was evidence of right and left failure. Monitor the kidney function and electrolytes. Please clarify the stage of the CKD, if known: [ ] CKD Stage 1 (GFR > 90) [ ] CKD Stage 2 (GFR 60-89) [ ] CKD Stage 3 (GFR 30-59) [ ] CKD Stage 3a (GFR 45-59) [ ] CKD Stage 3b (GFR 30-44) [ ] CKD Stage 4 (GFR 15-29) [ ] CKD Stage 5 (GFR <15) [ ] ESRD [ x] Other, please specify [ ] Unable to determine (Template last revised: July 2020) Patient does not have CKD. MTDD
== END 2022-02-11 14:14 | disposition home health service (06) | DRG 219 ==
LOC: 2ORMAIN 05:35 → 2SICU 13:16 → 3SCARD 02-07 22:17 → 2SICU 02-09 21:37
PROVIDERS: ADMIT Thoracic Surgery (Cardiothoracic Vascular Surgery); ATTEND Thoracic Surgery (Cardiothoracic Vascular Surgery)
PROC: 5A1221Z Performance of Cardiac Output, Continuous (ICD-10-PCS; 2022-01-31)
PROC: 02L70CK Occlusion of Left Atrial Appendage with Extraluminal Device, Open Approach (ICD-10-PCS; 2022-01-31)
PROC: 5A2204Z Restoration of Cardiac Rhythm, Single (ICD-10-PCS; 2022-01-31)
PROC: 02RF0JZ Replacement of Aortic Valve with Synthetic Substitute, Open Approach (ICD-10-PCS; principal; 2022-01-31 08:00)
PROC: 5A0935A Assistance with Respiratory Ventilation, Less than 24 Consecutive Hours, High Flow/Velocity Cannula (ICD-10-PCS; 2022-02-01)
DX: Q23.1 Congenital insufficiency of aortic valve (principal); I50.33 Acute on chronic diastolic (congestive) heart failure; Z68.41 Body mass index [BMI] 40.0-44.9, adult; N17.9 Acute kidney failure, unspecified; I31.3 Pericardial effusion (noninflammatory); E87.1 Hypo-osmolality and hyponatremia; I48.92 Unspecified atrial flutter; D62 Acute posthemorrhagic anemia; J98.11 Atelectasis; Z68.37 Body mass index [BMI] 37.0-37.9, adult; E11.22 Type 2 diabetes mellitus with diabetic chronic kidney disease; J44.9 Chronic obstructive pulmonary disease, unspecified; E66.01 Morbid (severe) obesity due to excess calories; I11.0 Hypertensive heart disease with heart failure; I34.0 Nonrheumatic mitral (valve) insufficiency; I70.0 Atherosclerosis of aorta; I95.9 Hypotension, unspecified; B95.61 Methicillin susceptible Staphylococcus aureus infection as the cause of diseases classified elsewhere; I48.0 Paroxysmal atrial fibrillation; I25.10 Atherosclerotic heart disease of native coronary artery without angina pectoris; G47.33 Obstructive sleep apnea (adult) (pediatric); E78.5 Hyperlipidemia, unspecified; I49.1 Atrial premature depolarization; M54.50 Low back pain, unspecified; G89.29 Other chronic pain; K21.9 Gastro-esophageal reflux disease without esophagitis; R74.01 Elevation of levels of liver transaminase levels; Z20.822 Contact with and (suspected) exposure to COVID-19; R01.1 Cardiac murmur, unspecified; D72.829 Elevated white blood cell count, unspecified; R00.0 Tachycardia, unspecified; M19.90 Unspecified osteoarthritis, unspecified site; Z86.711 Personal history of pulmonary embolism; Z79.82 Long term (current) use of aspirin; Z79.899 Other long term (current) drug therapy; Z79.02 Long term (current) use of antithrombotics/antiplatelets; Z79.51 Long term (current) use of inhaled steroids; Z79.01 Long term (current) use of anticoagulants; Z72.0 Tobacco use; Z95.5 Presence of coronary angioplasty implant and graft; I25.2 Old myocardial infarction; Z86.16 Personal history of COVID-19; Z87.11 Personal history of peptic ulcer disease; Z98.890 Other specified postprocedural states; Z80.9 Family history of malignant neoplasm, unspecified; Z82.49 Family history of ischemic heart disease and other diseases of the circulatory system
CPT/HCPCS: 71045; 71046; 71250; 80048; 80053; 80069; 81003; 82330; 82803; 82805; 83036; 83605; 83735; 83880; 84132; 84145; 84484; 85025; 85027; 85520; 85610; 85730; 86850; 86891; 86900; 86901; 86920; 87635; 88305; 88311; 93306; 93308; 94002; 94640; 94660; 94760

== ENCOUNTER 2022-02-26 17:27 | Emergency (ER) | payer BC, OTHER ==
[2022-02-26 17:56] VITALS: TEMP 98.3
[2022-02-26 18:23] LABS: Basophils # (A) 0.1 k/uL (0-0.2); Basophils % (A) 1 %; Eosinophils # (A) 1.4 k/uL (0-0.7); Eosinophils % (A) 14 %; HCT 43.6 % (39.0-53.0); HGB 13.8 gm/dL (13.0-17.5); Hypochromasia Slight; Lymphocytes # (A) 2.3 k/uL (1.0-4.8); Lymphocytes % (A) 23 %; MCH 27.4 pg (25.0-35.0); MCHC 31.8 g/dL (31.0-37.0); MCV 86.3 fL (80.0-100.0); Mean Platelet Volume 7.3; Monocytes # (A) 0.4 k/uL (0-1.0); Monocytes % (A) 4 %; Neutrophils # (A) 5.9 k/uL (1.3-7.7); Neutrophils % (A) 58 %; Platelet Count 296 k/uL (150-450); RBC 5.05 m/uL (4.30-5.90); RDW 13.6 % (11.5-15.5); WBC 10.2 k/uL (3.8-10.6)
[2022-02-26 18:34] LABS: Albumin 3.7 g/dL (3.5-5.0); Calcium 8.6 mg/dL (8.4-10.2); Total Bilirubin 0.6 mg/dL (0.2-1.3); Total Protein 6.4 g/dL (6.3-8.2)
[2022-02-26 18:59] LABS: Partial Thromboplastin Time 49.1 sec (22.0-30.0); Prothrombin Time 65.4 sec (9.0-12.0)
[2022-02-26 19:07] LABS: INR 6.5 (<1.2)
[2022-02-26 21:38] VITALS: BP 181/86; PULSE 97; RESP 17
--- NOTE | 2022-02-26 21:45 | ED ---
General Adult HPI - General Chief complaint: Recheck/Abnormal Lab/Rx Stated complaint: Irregular blood work Time Seen by Provider: 02/26/22 21:33 Source: patient, RN notes reviewed, old records reviewed Mode of arrival: ambulatory Limitations: no limitations - History of Present Illness Initial comments: 51-year-old male presents for evaluation of INR. Patient is on Coumadin for mechanical valve. Patient has been doing quite well postoperatively. He's had some elevated INR numbers. He had an INR of 7.1. Patient denies lightheadedness or dyspnea. He's had some minimal chest discomfort after his surgery. - Related Data Home Medications Medication Instructions Recorded Confirmed Albuterol Inhaler [Ventolin Hfa 2 puff INHALATION RT-QID PRN 10/01/21 01/29/22 Inhaler] Ergocalciferol [Vitamin D2 (1250 1,250 mcg PO MO 10/01/21 01/29/22 Mcg = 43813 Iu)] Fluticasone/Umeclidin/Vilanter 1 inhalation INHALATION DAILY 01/30/22 01/30/22 [Trelegy Ellipta 100-62.5-25] Previous Rx's Medication Instructions Recorded Aspirin 81 mg PO DAILY #30 chew 01/21/19 Nitroglycerin Sl Tabs [Nitrostat] 0.4 mg SUBLINGUAL Q5M PRN #25 tab 01/21/19 Fenofibrate [Lofibra] 160 mg PO DAILY 30 Days #30 tab 10/03/21 Acetaminophen Tab [Tylenol] 650 mg PO Q4HR PRN tab 02/11/22 Amiodarone [Cordarone] 200 mg PO BID #20 tab 02/11/22 Atorvastatin [Lipitor] 40 mg PO HS #30 tab 02/11/22 Furosemide [Lasix] 20 mg PO DAILY #30 tab 02/11/22 Glimepiride [Amaryl] 2 mg PO BID #120 tab 02/11/22 Metoprolol Tartrate [Lopressor] 75 mg PO BID #180 tab 02/11/22 Pantoprazole [Protonix] 40 mg PO AC-BRKFST #30 tab 02/11/22 Warfarin [Coumadin] 2.5 mg PO DAILY@1800 #30 tab 02/11/22 Warfarin [Coumadin] 3 mg PO DAILY #30 tab 02/21/22 Allergies Allergy/AdvReac Type Severity Reaction Status Date / Time No Known Allergies Allergy Verified 02/26/22 17:56 Review of Systems ROS Statement: Those systems with pertinent positive or pertinent negative responses have been documented in the HPI. ROS Other: All systems not noted in ROS Statement are negative. Past Medical History Past Medical History: Coronary Artery Disease (CAD), COPD, GERD/Reflux, Hyperlipidemia, Hypertension, Myocardial Infarction ([place]), Osteoarthritis (OA), Pulmonary Embolus (PE) Additional Past Medical History / Comment(s): Bronchitis, gastric ulcer as a teen, 2017 L leg cellulitis, chronic low back pain, vertigo Last Myocardial Infarction Date:: February 2019 History of Any Multi-Drug Resistant Organisms: None Reported Past Surgical History: Heart Catheterization With Stent Additional Past Surgical History / Comment(s): Egd, colonoscopy Past Anesthesia/Blood Transfusion Reactions: No Reported Reaction Date of Last Stent Placement:: February of 2019 Past Psychological History: No Psychological Hx Reported Smoking Status: Current every day smoker Past Alcohol Use History: None Reported Past Drug Use History: None Reported - Past Family History Father Family Medical History: Coronary Artery Disease (CAD), Myocardial Infarction ([place]) Additional Family Medical History / Comment(s): Father of [place] at the age of 71 yrs. Sister(s) Family Medical History: No Reported History Additional Family Medical History / Comment(s): Sister has a heart murmur. Mother Family Medical History: Cancer General Exam Limitations: no limitations General appearance: alert, in no apparent distress Head exam: Present: atraumatic, normocephalic Eye exam: Present: normal appearance, PERRL ENT exam: Present: normal exam Neck exam: Present: normal inspection. Absent: tenderness, meningismus Respiratory exam: Present: normal lung sounds bilaterally. Absent: respiratory distress, wheezes Cardiovascular Exam: Present: regular rate, normal rhythm, systolic murmur GI/Abdominal exam: Present: soft, distended. Absent: tenderness, guarding Extremities exam: Present: normal inspection, normal capillary refill. Absent: calf tenderness Neurological exam: Present: alert, oriented X3, CN II-XII intact, normal gait. Absent: motor sensory deficit Psychiatric exam: Present: normal affect, normal mood Skin exam: Present: warm, dry, intact. Absent: cyanosis, diaphoretic, pallor Course Vital Signs 02/26/22 02/26/22 17:54 21:37 Temperature 98.3 F Pulse Rate 95 97 Respiratory 20 17 Rate Blood Pressure 161/87 181/86 O2 Sat by Pulse 99 98 Oximetry Medical Decision Making - Medical Decision Making 51-year-old male with mechanical heart valve presenting with supratherapeutic INR, INR 6.4 which is down trending from 7.1. Patient's hemoglobin is stable at 13.8. He is a very reliable patient has an appointment with Dr. Carroll tomorrow. He is eager for discharge. He is given strict return parameters and will hold Coumadin awaiting INR recheck. - Lab Data Result diagrams: 02/26/22 18:09 02/26/22 18:09 Lab Results 02/26/22 02/26/22 02/26/22 Range/Units 18:09 18:09 18:09 WBC 10.2 (3.8-10.6) k/uL RBC 5.05 (4.30-5.90) m/uL Hgb 13.8 (13.0-17.5) gm/dL Hct 43.6 (39.0-53.0) % MCV 86.3 (80.0-100.0) fL MCH 27.4 (25.0-35.0) pg MCHC 31.8 (31.0-37.0) g/dL RDW 13.6 (11.5-15.5) % Plt Count 296 (150-450) k/uL MPV 7.3 Neutrophils % 58 % Lymphocytes % 23 % Monocytes % 4 % Eosinophils % 14 % Basophils % 1 % Neutrophils # 5.9 (1.3-7.7) k/uL Lymphocytes # 2.3 (1.0-4.8) k/uL Monocytes # 0.4 (0-1.0) k/uL Eosinophils # 1.4 H (0-0.7) k/uL Basophils # 0.1 (0-0.2) k/uL Hypochromasia Slight PT 65.4 H (9.0-12.0) sec INR 6.5 H* (<1.2) APTT 49.1 H (22.0-30.0) sec Sodium 137 (137-145) mmol/L Potassium 4.0 (3.5-5.1) mmol/L Chloride 102 (98-107) mmol/L Carbon Dioxide 25 (22-30) mmol/L Anion Gap 10 mmol/L BUN 13 (9-20) mg/dL Creatinine 1.14 (0.66-1.25) mg/dL Est GFR (CKD-EPI)AfAm 86 (>60 ml/min/1.73 sqM) Est GFR (CKD-EPI)NonAf 75 (>60 ml/min/1.73 sqM) Glucose 149 H (74-99) mg/dL Calcium 8.6 (8.4-10.2) mg/dL Total Bilirubin 0.6 (0.2-1.3) mg/dL AST 28 (17-59) U/L ALT 30 (4-49) U/L Alkaline Phosphatase 98 (38-126) U/L Troponin I (0.000-0.034) ng/mL Total Protein 6.4 (6.3-8.2) g/dL Albumin 3.7 (3.5-5.0) g/dL 02/26/22 Range/Units 18:09 WBC (3.8-10.6) k/uL RBC (4.30-5.90) m/uL Hgb (13.0-17.5) gm/dL Hct (39.0-53.0) % MCV (80.0-100.0) fL MCH (25.0-35.0) pg MCHC (31.0-37.0) g/dL RDW (11.5-15.5) % Plt Count (150-450) k/uL MPV Neutrophils % % Lymphocytes % % Monocytes % % Eosinophils % % Basophils % % Neutrophils # (1.3-7.7) k/uL Lymphocytes # (1.0-4.8) k/uL Monocytes # (0-1.0) k/uL Eosinophils # (0-0.7) k/uL Basophils # (0-0.2) k/uL Hypochromasia PT (9.0-12.0) sec INR (<1.2) APTT (22.0-30.0) sec Sodium (137-145) mmol/L Potassium (3.5-5.1) mmol/L Chloride (98-107) mmol/L Carbon Dioxide (22-30) mmol/L Anion Gap mmol/L BUN (9-20) mg/dL Creatinine (0.66-1.25) mg/dL Est GFR (CKD-EPI)AfAm (>60 ml/min/1.73 sqM) Est GFR (CKD-EPI)NonAf (>60 ml/min/1.73 sqM) Glucose (74-99) mg/dL Calcium (8.4-10.2) mg/dL Total Bilirubin (0.2-1.3) mg/dL AST (17-59) U/L ALT (4-49) U/L Alkaline Phosphatase (38-126) U/L Troponin I 0.018 (0.000-0.034) ng/mL Total Protein (6.3-8.2) g/dL Albumin (3.5-5.0) g/dL Disposition Clinical Impression: Supratherapeutic INR Disposition: HOME SELF-CARE Condition: Fair Instructions (If sedation given, give patient instructions): Elevated INR (ED) Additional Instructions: Please follow up with Dr. Carroll tomorrow for recheck INR Is patient prescribed a controlled substance at d/c from ED?: No Referrals: Tiffany Gutierrez DO [Primary Care Provider] - 1-2 days Time of Disposition: 21:44
== END 2022-02-26 21:54 | disposition home or self-care (01) ==
LOC: EC 17:27
DX: R79.1 Abnormal coagulation profile (principal); I25.10 Atherosclerotic heart disease of native coronary artery without angina pectoris; J44.9 Chronic obstructive pulmonary disease, unspecified; E78.5 Hyperlipidemia, unspecified; I10 Essential (primary) hypertension; I25.2 Old myocardial infarction; M19.90 Unspecified osteoarthritis, unspecified site; Z86.711 Personal history of pulmonary embolism; F17.200 Nicotine dependence, unspecified, uncomplicated; Z79.51 Long term (current) use of inhaled steroids
CPT/HCPCS: 36415; 80053; 84484; 85025; 85610; 85730; 99283

== ENCOUNTER 2022-03-06 20:50 | Inpatient (IN) | payer BC, OTHER ==
[2022-03-06] MEDS ORDERED: SODIUM CHLORIDE 0.9% 1,000 ML IV STA (21:47)
[2022-03-06] MEDS ORDERED: ACETAMINOPHEN TAB 500 MG TAB PO STA (21:49)
[2022-03-06] MEDS ORDERED: CLINDAMYCIN 600 MG in DEXTROSE 5% IN WATER 50 ML IVPB STA ×2 (21:49)
--- NOTE | 2022-03-06 21:56 | ED ---
Skin/Abscess/FB HPI - General Chief complaint: Skin/Abscess/Foreign Body Stated complaint: Celulitis Time Seen by Provider: 03/06/22 21:39 Source: patient, family Mode of arrival: ambulatory Limitations: no limitations - History of Present Illness Initial comments: This is a pleasant 51-year-old male with a history of multiple issues as listed in the chart. Patient also has valvular heart disease with a mechanical valve replacement. Patient comes in complaining of cellulitis to the left lower leg which started yesterday. Patient also has a low-grade fever 100.6. Patient took acetaminophen at 5 PM. patient states that he had cellulitis in the same area within the last 2 years. No break in skin integrity. Patient denies any injury. No distal proximal abnormalities. No distal paresthesias. Denying any significant pain. No headache, no fever or chills, no changes in vision or hearing, no sore throat or difficulty with speech, no neck pain, no chest pain or shortness of breath, no abdominal pain, no nausea or vomiting, no changes in urination or bowel movements, no numbness or tingling, no other rash Past medical, surgical, social, and family history reviewed. Patient on warfarin for valvular heart disease - Related Data Home Medications Medication Instructions Recorded Confirmed Albuterol Inhaler [Ventolin Hfa 2 puff INHALATION RT-QID PRN 10/01/21 01/29/22 Inhaler] Ergocalciferol [Vitamin D2 (1250 1,250 mcg PO MO 10/01/21 01/29/22 Mcg = 92509 Iu)] Fluticasone/Umeclidin/Vilanter 1 inhalation INHALATION DAILY 01/30/22 01/30/22 [Treleken Ellipta 100-62.5-25] Previous Rx's Medication Instructions Recorded Aspirin 81 mg PO DAILY #30 chew 01/21/19 Nitroglycerin Sl Tabs [Nitrostat] 0.4 mg SUBLINGUAL Q5M PRN #25 tab 01/21/19 Fenofibrate [Lofibra] 160 mg PO DAILY 30 Days #30 tab 10/03/21 Acetaminophen Tab [Tylenol] 650 mg PO Q4HR PRN tab 02/11/22 Amiodarone [Cordarone] 200 mg PO BID #20 tab 02/11/22 Atorvastatin [Lipitor] 40 mg PO HS #30 tab 02/11/22 Furosemide [Lasix] 20 mg PO DAILY #30 tab 02/11/22 Glimepiride [Amaryl] 2 mg PO BID #120 tab 02/11/22 Metoprolol Tartrate [Lopressor] 75 mg PO BID #180 tab 02/11/22 Pantoprazole [Protonix] 40 mg PO AC-BRKFST #30 tab 02/11/22 Warfarin [Coumadin] 2.5 mg PO DAILY@1800 #30 tab 02/11/22 Warfarin [Coumadin] 3 mg PO DAILY #30 tab 02/21/22 Meclizine [Antivert] 25 mg PO BID PRN #60 tab 03/02/22 Allergies Allergy/AdvReac Type Severity Reaction Status Date / Time No Known Allergies Allergy Verified 03/06/22 21:27 Review of Systems ROS Statement: Those systems with pertinent positive or pertinent negative responses have been documented in the HPI. ROS Other: All systems not noted in ROS Statement are negative. Past Medical History Past Medical History: Coronary Artery Disease (CAD), COPD, GERD/Reflux, Hyperli pidemia, Hypertension, Myocardial Infarction ([place]), Osteoarthritis (OA), Pulmonary Embolus ([place]) Additional Past Medical History / Comment(s): Bronchitis, gastric ulcer as a hans n, 2016 L leg cellulitis, chronic low back pain, vertigo Last Myocardial Infarction Date:: February 2019 History of Any Multi-Drug Resistant Organisms: None Reported Past Surgical History: Heart Catheterization With Stent Additional Past Surgical History / Comment(s): Egd, colonoscopy, aortic valve replacement Past Anesthesia/Blood Transfusion Reactions: No Reported Reaction Date of Last Stent Placement:: February of 2019 Past Psychological History: No Psychological Hx Reported Smoking Status: Current every day smoker Past Alcohol Use History: None Reported Past Drug Use History: None Reported - Past Family History Father Family Medical History: Coronary Artery Disease (CAD), Myocardial Infarction ([place]) Additional Family Medical History / Comment(s): Father of [place] at the age of 71 yrs. Sister(s) Family Medical History: No Reported History Additional Family Medical History / Comment(s): Sister has a heart murmur. Mother Family Medical History: Cancer General Exam - General Exam Comments Initial Comments: this is an obese 51-year-old male who is in no significant distress at the time I'm seeing him. Patient has erythema noted to the left lower leg without the foot being involved. Vital signs are noted. Patient febrile and mildly tachycardic. However, does not appear to be significantly ill. Moist mucous membranes. Capillary refill less than 2 seconds. No mottling. Limitations: no limitations General appearance: alert, in no apparent distress Head exam: Present: atraumatic, normocephalic, normal inspection Eye exam: Present: normal appearance, PERRL, EOMI. Absent: scleral icterus, conjunctival injection, periorbital swelling ENT exam: Present: normal exam, normal oropharynx, mucous membranes moist, normal external ear exam. Absent: mucous membranes dry Neck exam: Present: normal inspection, full ROM. Absent: tenderness, meningismus, lymphadenopathy Respiratory exam: Present: normal lung sounds bilaterally. Absent: respiratory distress, wheezes, rales, rhonchi, stridor Cardiovascular Exam: Present: regular rate, normal rhythm, normal heart sounds. Absent: systolic murmur, diastolic murmur, rubs, gallop, clicks GI/Abdominal exam: Present: soft, normal bowel sounds. Absent: distended, tenderness, guarding, rebound, rigid Extremities exam: Present: full ROM, normal capillary refill. Absent: normal inspection (Patient has erythema noted to the left lower leg which does not progress past the knee. This does not involve the foot. This does loida. There is no significant calf tenderness. Negative Homans sign. Pedal pulses are 2+ to 4.), tenderness, pedal edema, joint swelling, calf tenderness Back exam: Present: normal inspection Neurological exam: Present: alert, oriented X3, CN II-XII intact Psychiatric exam: Present: normal affect, normal mood Skin exam: Present: warm, dry, intact, erythema (Left lower leg). Absent: normal color (Aside from left lower leg), rash, cyanosis, diaphoretic, urtic aria, vesicles, petechiae, pallor, mottled, abrasion Course Vital Signs 03/06/22 21:21 Temperature 100.6 F H Pulse Rate 110 H Respiratory 22 Rate Blood Pressure 107/66 O2 Sat by Pulse 97 Oximetry - Consultations Consultation #1: Call placed for the patient's admitting physician at 12:32 AM Consultation #2: Case discussed in detail with the admitting physician, Dr. Wheeler with sepsis patient for admission. Patient placed in observation status's point. Clindamy rosalio 600 mg every 6 hours. Medical Decision Making - Medical Decision Making 51-year-old diabetic male with history of valvular heart disease presents with what appears to be cellulitis involving the left lower leg. Does not appear to be due to any vascular insult either venous or arterial. Pulses are normal in the foot. Distal sensation intact. We'll treat with 600 mg of clindamycin IV piggyback. Gen. septic workup. Plan for reevaluation. The patient was also seen by the ED attending physician, Dr. Singh - Lab Data Result diagrams: 03/06/22 22:00 03/06/22 22:00 Lab Results 03/06/22 03/06/22 03/06/22 Range/Units 22:00 22:00 22:00 WBC 15.2 H (3.8-10.6) k/uL RBC 5.03 (4.30-5.90) m/uL Hgb 13.6 (13.0-17.5) gm/dL Hct 42.4 (39.0-53.0) % MCV 84.2 (80.0-100.0) fL MCH 27.1 (25.0-35.0) pg MCHC 32.2 (31.0-37.0) g/dL RDW 14.0 (11.5-15.5) % Plt Count 235 (150-450) k/uL MPV 7.7 Neutrophils % 85 % Lymphocytes % 11 % Monocytes % 3 % Eosinophils % 0 % Basophils % 1 % Neutrophils # 12.9 H (1.3-7.7) k/uL Lymphocytes # 1.6 (1.0-4.8) k/uL Monocytes # 0.4 (0-1.0) k/uL Eosinophils # 0.0 (0-0.7) k/uL Basophils # 0.1 (0-0.2) k/uL PT (9.0-12.0) sec INR (<1.2) Sodium 132 L (137-145) mmol/L Potassium 4.1 (3.5-5.1) mmol/L Chloride 102 (98-107) mmol/L Carbon Dioxide 19 L (22-30) mmol/L Anion Gap 11 mmol/L BUN 18 (9-20) mg/dL Creatinine 1.49 H (0.66-1.25) mg/dL Est GFR (CKD-EPI)AfAm 62 (>60 ml/min/1.73 sqM) Est GFR (CKD-EPI)NonAf 54 (>60 ml/min/1.73 sqM) Glucose 75 (74-99) mg/dL Plasma Lactic Acid Milind 1.1 (0.7-2.0) mmol/L Calcium 9.1 (8.4-10.2) mg/dL Total Bilirubin 0.6 (0.2-1.3) mg/dL AST 35 (17-59) U/L ALT 18 (4-49) U/L Alkaline Phosphatase 75 (38-126) U/L C-Reactive Protein 19.6 H (<1.0) mg/dL Total Protein 6.3 (6.3-8.2) g/dL Albumin 3.5 (3.5-5.0) g/dL 03/06/22 Range/Units 22:00 WBC (3.8-10.6) k/uL RBC (4.30-5.90) m/uL Hgb (13.0-17.5) gm/dL Hct (39.0-53.0) % MCV (80.0-100.0) fL MCH (25.0-35.0) pg MCHC (31.0-37.0) g/dL RDW (11.5-15.5) % Plt Count (150-450) k/uL MPV Neutrophils % % Lymphocytes % % Monocytes % % Eosinophils % % Basophils % % Neutrophils # (1.3-7.7) k/uL Lymphocytes # (1.0-4.8) k/uL Monocytes # (0-1.0) k/uL Eosinophils # (0-0.7) k/uL Basophils # (0-0.2) k/uL PT 19.3 H (9.0-12.0) sec INR 1.9 H (<1.2) Sodium (137-145) mmol/L Potassium (3.5-5.1) mmol/L Chloride (98-107) mmol/L Carbon Dioxide (22-30) mmol/L Anion Gap mmol/L BUN (9-20) mg/dL Creatinine (0.66-1.25) mg/dL Est GFR (CKD-EPI)AfAm (>60 ml/min/1.73 sqM) Est GFR (CKD-EPI)NonAf (>60 ml/min/1.73 sqM) Glucose (74-99) mg/dL Plasma Lactic Acid Milind (0.7-2.0) mmol/L Calcium (8.4-10.2) mg/dL Total Bilirubin (0.2-1.3) mg/dL AST (17-59) U/L ALT (4-49) U/L Alkaline Phosphatase (38-126) U/L C-Reactive Protein (<1.0) mg/dL Total Protein (6.3-8.2) g/dL Albumin (3.5-5.0) g/dL - Radiology Data Radiology results: report reviewed, image reviewed Disposition Clinical Impression: Sepsis, Cellulitis of left leg without foot, Subtherapeutic anticoagulation Disposition: ADMITTED IP TO THIS [facility] Condition: Stable Referrals: Tiffany Gutierrez DO [Primary Care Provider] - 1-2 days Time of Disposition: 23:47 Decision to Admit Reason: Admit from EC Decision Time: 23:47
[2022-03-06 22:43] LABS: Basophils # (A) 0.1 k/uL (0-0.2); Basophils % (A) 1 %; Eosinophils % (A) 0 %; HCT 42.4 % (39.0-53.0); HGB 13.6 gm/dL (13.0-17.5); Lymphocytes # (A) 1.6 k/uL (1.0-4.8); Lymphocytes % (A) 11 %; MCH 27.1 pg (25.0-35.0); MCHC 32.2 g/dL (31.0-37.0); MCV 84.2 fL (80.0-100.0); Mean Platelet Volume 7.7; Monocytes # (A) 0.4 k/uL (0-1.0); Monocytes % (A) 3 %; Neutrophils # (A) 12.9 k/uL (1.3-7.7); Neutrophils % (A) 85 %; Platelet Count 235 k/uL (150-450); RBC 5.03 m/uL (4.30-5.90); WBC 15.2 k/uL (3.8-10.6)
[2022-03-06 22:52] LABS: INR 1.9 (<1.2); Prothrombin Time 19.3 sec (9.0-12.0)
[2022-03-06 23:12] LABS: Albumin 3.5 g/dL (3.5-5.0); Calcium 9.1 mg/dL (8.4-10.2); Potassium 4.1 mmol/L (3.5-5.1); Total Bilirubin 0.6 mg/dL (0.2-1.3); Total Protein 6.3 g/dL (6.3-8.2)
--- NOTE | 2022-03-06 23:15 | XR ---
EXAMINATION TYPE: XR tibia fibula LT DATE OF EXAM: 03/06/2022 COMPARISON: NONE HISTORY: Pain TECHNIQUE: 3 views FINDINGS: I see no fracture nor dislocation. Joint spaces are normal. Knee joint and ankle joint appe ar intact. There is minor spurring at the tibial tubercle. No sign of knee joint effusion. Achilles c alcaneal spurring is noted. IMPRESSION: Negative left tibia and fibula exam. No fracture. No focal bone destruction.
[2022-03-06 23:30] LABS: C Reactive Protein 19.6 mg/dL (<1.0)
[2022-03-07] MEDS ORDERED: WARFARIN 3 MG TAB PO STA (00:17)
[2022-03-07] MEDS ORDERED: ONDANSETRON 4 MG/2 ML VIAL IVP PRN (01:13)
[2022-03-07] MEDS ORDERED: NALOXONE 0.4 MG/ML 1 ML VIAL IV PRN (01:13)
[2022-03-07] MEDS ORDERED: ACETAMINOPHEN TAB 325 MG TAB PO PRN (01:13)
[2022-03-07] MEDS ORDERED: MORPHINE SULFATE 4 MG/ML SYRINGE IV PRN (01:13)
[2022-03-07] MEDS ORDERED: DEXTROSE 50% SYRINGE 50 ML IVP PRN ×2 (01:22)
[2022-03-07] MEDS ORDERED: ALBUTEROL NEBULIZED 2.5 MG/3 ML INHALATION PRN (01:24)
[2022-03-07] MEDS ORDERED: WARFARIN 2 MG TAB PO ONE (02:00)
[2022-03-07] MEDS: SODIUM CHLORIDE 0.9% 1,000 ML IV SCH ×3 (04:25→20:23)
[2022-03-07] MEDS: CLINDAMYCIN 600 MG in DEXTROSE 5% IN WATER 50 ML IVPB SCH ×4 (04:46→10:07)
[2022-03-07 07:12] LABS: Glucose,Whole Blood 103 mg/dL (70-110)
[2022-03-07] MEDS: INSULIN ASPART (NovoLOG) 100 UNIT/ML VIAL SQ SCH ×4 (07:17→20:21)
[2022-03-07] MEDS ORDERED: PANTOPRAZOLE 40 MG TABLET PO SCH (07:30)
[2022-03-07] MEDS: ASPIRIN 81 MG PO SCH (07:53)
[2022-03-07] MEDS ORDERED: PANTOPRAZOLE 40 MG/10 ML VIAL IV SCH (09:00)
[2022-03-07] MEDS ORDERED: VANCOMYCIN IV PER PHARMACY 1 EACH MISC MISCELLANE PRN (10:02)
[2022-03-07] MEDS ORDERED: VANCOMYCIN 1,750 MG in SODIUM CHLORIDE 0.9% 500 ML 500 ML IVPB ONE (10:30)
[2022-03-07 10:55] LABS: INR 1.9 (<1.2); Prothrombin Time 19.2 sec (9.0-12.0)
--- NOTE | 2022-03-07 11:27 | P.CRDCN ---
History of Present Illness History of present illness: Patient is a pleasant 51-year-old male with history of bicuspid valve with moderate to severe aortic stenosis and moderate aortic insufficiency Status post Mechanical aortic valve replacement with a 25 mm On-X mechanical valve, ligation of the left atrial appendage on 01/31/2022, tobacco abuse, Coronary artery disease status post stenting of the RCA in 2019, COPD, CONNIE, borderline diabetes mellitus type 2, hypertension, chronic nicotine dependence. He follows with Dr. Jin. We have been asked to see in consultation for mechanical valve and possible sepsis. Patient presents emergency department with complaints of left lower extremity cellulitis, fever, chills, night sweats. He states his symptoms began yesterday, he had a fever of 100.9 at home, and noticed left lower extremity redness. He came to the emergency department for further evaluation. He denies any chest pain, shortness of breath, symptoms of orthopnea PND, palpitations, lightheadedness, dizziness, syncope or near syncope. He does endorse some blood in his stool a few weeks ago, which resolved. He states he is compliant with his medication. He denies any recent cuts, scrapes, wounds. Denies any recent travel or in [place]. DIAGNOSTICS * X-ray of tibia and fibula the left leg revealed no fracture, no focal bone distraction. * Echocardiogram 02/10/2022 EF 45-50%, small pericardial effusion, no evidence of tamponade, aortic valve, tricuspid valve and pulmonic valve not well visualized. * Heart catheterization 03/2021 showed mild disease of the proximal RCA and a patent stent in the mid RCA. * Laboratory reviewed, sodium 132, potassium 4.1, BUN 18, serum creatinine 1.49, hemoglobin A1c 5.8, CRP elevated at 19.6, WBC 15.2, hemoglobin 13.6, platelets 235 * Current home cardiac medications include Coumadin 3 mg daily, metoprolol tartrate 75 mg twice a day, Lasix 20 mg daily, atorvastatin 40 mg nightly, aspirin 81 mg daily REVIEW OF SYSTEMS At the time of my exam: CONSTITUTIONAL: + fever + chills.+night sweats CARDIOVASCULAR: Denies chest pain, shortness of breath, orthopnea, PND or palpitations. RESPIRATORY: Denies cough. GASTROINTESTINAL: Denies abdominal pain, diarrhea, constipation, nausea or vomiting. MUSCULOSKELETAL: Denies myalgias. NEUROLOGIC: Denies numbness, tingling, headacbe or weakness. ENDOCRINE: Denies fatigue, weight change, polydipsia or polyurina. GENITOURINARY: Denies burning, hematuria or urgency with micturation. HEMATOLOGIC: Denies history of anemia, reports blood in stool a few weeks ago that resolved. PHYSICAL EXAMINATION Blood pressure 144/77, HR 102, afebrile, 98% on room air CONSTITUTIONAL: No apparent distress. HEENT: Head is normocephalic. Pupils are equal, round. Sclerae anicteric. Mucous membranes of the mouth are moist. No JVD. No carotid bruit. CHEST EXAMINATION: Lungs are clear to auscultation. No chest wall tenderness is noted on palpation or with deep breathing. HEART EXAMINATION: Regular rate and rhythm. S1, S2 heard. AV mechanical click audible, No murmurs, gallops or rubs heard ABDOMEN: Soft, nontender. Positive bowel sounds. EXTREMITIES: Left lower extremity redness below the knee and above left ankle. Small redness in the left upper thigh, 2+ peripheral pulses, no lower extremity edema and no calf tenderness. NEUROLOGIC EXAMINATION: Patient is awake, alert and oriented x3. ASSESSMENT Fever, Chills, night sweats Left lower extremity cellulitis Leukocytosis Bicuspid Aortic stenosis and aortic insufficiency status post On-X mechanical aortic valve 01/31/2022 Postoperative paroxysmal atrial fibrillation Hypertension CAD with prior history of PCI RCA in 2018, with only mild disease involving the proximal RCA 30% by heart catheterization 03/2021 Borderline diabetes mellitus 2 COPD Obstructive sleep apnea Chronic nicotine dependence History of pulmonary embolism on Eliquis outpatient PLAN Recommend obtaining blood cultures Infectious disease has been consulted Continue anticoagulation with Coumadin, will give 5mg tonight Daily INR Continue home medications with aspirin, statin, beta milton Smoking cessation discussed and highly recommended Further recommendations based on clinical course Nurse practitioner note has been reviewed by physician. Signing provider agrees with the documented findings, assessment, and plan of care. Past Medical History Past Medical History: Coronary Artery Disease (CAD), COPD, GERD/Reflux, Hyperlipidemia, Hypertension, Myocardial Infarction (ID), Osteoarthritis (OA), Pulmonary Embolus (PE) Additional Past Medical History / Comment(s): Bronchitis, gastric ulcer as a teen, 2017 L leg cellulitis, chronic low back pain, vertigo Last Myocardial Infarction Date:: February 2019 History of Any Multi-Drug Resistant Organisms: None Reported Past Surgical History: Heart Catheterization With Stent Additional Past Surgical History / Comment(s): Egd, colonoscopy, aortic valve replacement Past Anesthesia/Blood Transfusion Reactions: No Reported Reaction Date of Last Stent Placement:: February of 2019 Past Psychological History: No Psychological Hx Reported Additional Psychological History / Comment(s): Pt resides with his fiancee. He is independent. Smoking Status: Current every day smoker Past Alcohol Use History: None Reported Additional Past Alcohol Use History / Comment(s): Pt started smoking in 1979 and is a 1 ppd smoker. Past Drug Use History: None Reported - Past Family History Father Family Medical History: Coronary Artery Disease (CAD), Myocardial Infarction (ID) Additional Family Medical History / Comment(s): Father of ID at the age of 71 yrs. Sister(s) Family Medical History: No Reported History Additional Family Medical History / Comment(s): Sister has a heart murmur. Mother Family Medical History: Cancer Medications and Allergies Home Medications Medication Instructions Recorded Confirmed Type Aspirin 81 mg PO DAILY #30 chew 01/21/19 03/07/22 Rx Albuterol Inhaler [Ventolin Hfa 2 puff INHALATION RT-QID PRN 10/01/21 03/07/22 History Inhaler] Ergocalciferol [Vitamin D2 (1250 1,250 mcg PO MO 10/01/21 03/07/22 History Mcg = 43187 Iu)] Fenofibrate [Lofibra] 160 mg PO DAILY 30 Days #30 tab 10/03/21 03/07/22 Rx Fluticasone/Umeclidin/Vilanter 1 puff INHALATION RT-DAILY 01/30/22 03/07/22 History [Stephen Ellipta 100-62.5-25] Acetaminophen Tab [Tylenol] 650 mg PO Q4HR PRN tab 02/11/22 03/07/22 Rx Atorvastatin [Lipitor] 40 mg PO HS #30 tab 02/11/22 03/07/22 Rx Furosemide [Lasix] 20 mg PO DAILY #30 tab 02/11/22 03/07/22 Rx Pantoprazole [Protonix] 40 mg PO AC-BRKFST #30 tab 02/11/22 03/07/22 Rx Meclizine [Antivert] 25 mg PO BID PRN #60 tab 03/02/22 03/07/22 Rx Glimepiride [Amaryl] 2 mg PO BID 03/07/22 03/07/22 History Metoprolol Tartrate [Lopressor] 75 mg PO BID 03/07/22 03/07/22 History Nitroglycerin Sl Tabs [Nitrostat] 0.4 mg SL Q5M PRN 03/07/22 03/07/22 History Warfarin [Coumadin] 3 mg PO DAILY@1800 03/07/22 03/07/22 History Allergies Allergy/AdvReac Type Severity Reaction Status Date / Time No Known Allergies Allergy Verified 03/07/22 08:38 Physical Exam Vitals: Vital Signs Temp Pulse Pulse Resp BP BP Pulse Ox 03/07/22 04:01 98.9 F 102 H 18 114/77 98 03/07/22 03:27 98.7 F 92 18 110/73 03/06/22 21:21 100.6 F H 110 H 22 107/66 97 Intake and Output 03/06/22 03/07/22 03/07/22 22:59 06:59 14:59 Other: Voiding Method Toilet Toilet # Voids 1 Weight 108.862 kg 108.862 kg Results 03/06/22 22:00 03/06/22 22:00 Cardiac Enzymes 03/06/22 Range/Units 22:00 AST 35 (17-59) U/L Coagulation 03/06/22 Range/Units 22:00 PT 19.3 H (9.0-12.0) sec CBC 03/06/22 Range/Units 22:00 WBC 15.2 H (3.8-10.6) k/uL RBC 5.03 (4.30-5.90) m/uL Hgb 13.6 (13.0-17.5) gm/dL Hct 42.4 (39.0-53.0) % Plt Count 235 (150-450) k/uL Comprehensive Metabolic Panel 03/06/22 Range/Units 22:00 Sodium 132 L (137-145) mmol/L Potassium 4.1 (3.5-5.1) mmol/L Chloride 102 (98-107) mmol/L Carbon Dioxide 19 L (22-30) mmol/L BUN 18 (9-20) mg/dL Creatinine 1.49 H (0.66-1.25) mg/dL Glucose 75 (74-99) mg/dL Calcium 9.1 (8.4-10.2) mg/dL AST 35 (17-59) U/L ALT 18 (4-49) U/L Alkaline Phosphatase 75 (38-126) U/L Total Protein 6.3 (6.3-8.2) g/dL Albumin 3.5 (3.5-5.0) g/dL Current Medications Generic Name Dose Route Start Last Admin Trade Name Freq PRN Reason Stop Dose Admin Acetaminophen 650 mg 03/07/22 01:13 Acetaminophen Tab 325 Mg Tab PO Q6HR PRN Mild Pain or Fever > 100.5 Albuterol Sulfate 2.5 mg 03/07/22 01:24 Albuterol Nebulized 2.5 Mg/3 Ml INHALATION RT-QID PRN Shortness Of Breath Aspirin 81 mg 03/07/22 09:00 03/07/22 07:53 Aspirin 81 Mg PO 81 mg DAILY BETHANY Administration Dextrose/Water 25 ml 03/07/22 01:22 Dextrose 50% Syringe 50 Ml IVP PER PROTOCOL PRN Hypoglycemia Protocol Dextrose/Water 50 ml 03/07/22 01:22 Dextrose 50% Syringe 50 Ml IVP PER PROTOCOL PRN Hypoglycemia Protocol Sodium Chloride 1,000 mls @ 130 mls/hr 03/07/22 01:15 03/07/22 04:25 Saline 0.9% IV 130 mls/hr .Q7H42M BETHANY Administration Ampicillin Sodium/Sulbactam 100 mls @ 200 mls/hr 03/07/22 12:00 Sodium 3 gm/ Sodium Chloride IVPB Q6HR BETHANY Protocol Vancomycin HCl 1,750 mg/ 500 mls @ 167 mls/hr 03/07/22 10:30 Sodium Chloride IVPB 03/07/22 13:29 ONCE ONE Vancomycin HCl 1,750 mg/ 500 mls @ 167 mls/hr 03/08/22 10:00 Sodium Chloride IVPB Q16H BETHANY Insulin Aspart 0 unit 03/07/22 07:30 03/07/22 07:17 Insulin Aspart (Novolog) 100 Unit/Ml Vial SQ Not Given ACHS BETHANY Protocol Miscellaneous Information 0 each 03/07/22 01:28 Warfarin Per Pharmacy MISCELLANE DIRECTED PRN PER PROTOCOL Miscellaneous Information 1 each 03/07/22 10:02 Vancomycin Iv Per Pharmacy 1 Each Misc MISCELLANE DIRECTED PRN Per Protocol Protocol Morphine Sulfate 4 mg 03/07/22 01:13 Morphine Sulfate 4 Mg/Ml Syringe IV Q4HR PRN Severe Pain (Scale 7 to 10) Naloxone HCl 0.2 mg 03/07/22 01:13 Naloxone 0.4 Mg/Ml 1 Ml Vial IV Q2M PRN Opioid Reversal Ondansetron HCl 4 mg 03/07/22 01:13 Ondansetron 4 Mg/2 Ml Vial IVP Q8HR PRN Nausea And Vomiting Pantoprazole Sodium 40 mg 03/07/22 09:00 03/07/22 07:53 Pantoprazole 40 Mg/10 Ml Vial IV 40 mg DAILY BETHANY Administration Intake and Output 03/06/22 03/07/22 03/07/22 22:59 06:59 14:59 Other: Voiding Method Toilet Toilet # Voids 1 Weight 108.862 kg 108.862 kg 03/06/22 22:00 03/06/22 22:00
[2022-03-07 11:42] LABS: Glucose,Whole Blood 110 mg/dL (70-110)
[2022-03-07] MEDS ORDERED: AMPICILLIN-SULBACTAM 3 GM in SODIUM CHLORIDE 0.9% 100 ML IVPB SCH ×2 (12:00→22:00)
[2022-03-07] MEDS: GLIMEPIRIDE 2 MG TAB PO SCH ×2 (13:40→20:20)
[2022-03-07] MEDS: ACETAMINOPHEN TAB 325 MG TAB PO PRN (14:43)
[2022-03-07] MEDS ORDERED: IPRATROPIUM 0.5 MG/2.5 ML NEBU INHALATION ONE (14:52)
[2022-03-07 17:45] LABS: Glucose,Whole Blood 125 mg/dL (70-110)
[2022-03-07] MEDS ORDERED: WARFARIN 5 MG TAB PO ONE (18:00)
[2022-03-07] MEDS ORDERED: WARFARIN 3 MG TAB PO SCH (18:00)
--- NOTE | 2022-03-07 18:23 | P.HPIM ---
History of Present Illness H&P Date: 03/07/22 Chief Complaint: Left lower extremity cellulitis This is a 51-year-old gentleman with past medical history of CAD, [place], stenting of RCA ,recent AVR with mechanical valve 02/04, PE on Eliquis, COPD, obstructive sleep apnea ,diabetes mellitus, gastroesophageal reflux disease, hypertension, hyperlipidemia, nicotine dependence, morbid obesity, Covid June 2021, recurrent lower extremity cellulitis, admitted with complaints of left lower extremity cellulitis. Reports sweats and chills 2 days, developed left calf pain accompanied by sweats and chills after grocery shopping-states he has recurrent cellulitis of the left lower extremity. Denies syncope. Denies lightheadedness, dizziness or focal deficits. Skin intact, no visual bites noted. Denies numbness or tingling of the affected site. Tib-fib fracture reported negative, no fracture, no focal bone distraction, no effusion. T-max 100.6, WBC 15.2., Sodium 132, creatinine 1.49(1.28 on discharge in ). lactic acid 1.1, CRP 19.6 .IV antibiotics adjusted from clindamycin to vancomycin and Unasyn. Blood sugars controlled, A1c 5.8. Denies any chest pain, palpitations or shortness of breath. Anticoagulated on Coumadin with INR 1.9. Review of Systems ROS Statement: Those systems with pertinent positive or pertinent negative responses have been documented in the HPI. ROS Other: All systems not noted in ROS Statement are negative. Past Medical History Past Medical History: Coronary Artery Disease (CAD), COPD, GERD/Reflux, Hyperlipidemia, Hypertension, Myocardial Infarction (FL), Osteoarthritis (OA), Pulmonary Embolus (PE) Additional Past Medical History / Comment(s): Bronchitis, gastric ulcer as a teen, 2016 L leg cellulitis, chronic low back pain, vertigo Last Myocardial Infarction Date:: February 2019 History of Any Multi-Drug Resistant Organisms: None Reported Past Surgical History: Heart Catheterization With Stent Additional Past Surgical History / Comment(s): Egd, colonoscopy, aortic valve replacement Past Anesthesia/Blood Transfusion Reactions: No Reported Reaction Date of Last Stent Placement:: February of 2019 Past Psychological History: No Psychological Hx Reported Additional Psychological History / Comment(s): [facility]. He is independent. Smoking Status: Current every day smoker Past Alcohol Use History: None Reported Additional Past Alcohol Use History / Comment(s): Pt started smoking in 1979 and is a 1 ppd smoker. Past Drug Use History: None Reported - Past Family History Father Family Medical History: Coronary Artery Disease (CAD), Myocardial Infarction (FL) Additional Family Medical History / Comment(s): Father of [place] at the age of 71 yrs. Sister(s) Family Medical History: No Reported History Additional Family Medical History / Comment(s): Sister has a heart murmur. Mother Family Medical History: Cancer Medications and Allergies Home Medications Medication Instructions Recorded Confirmed Type Aspirin 81 mg PO DAILY #30 chew 01/21/19 03/07/22 Rx Albuterol Inhaler [Ventolin Hfa 2 puff INHALATION RT-QID PRN 10/01/21 03/07/22 History Inhaler] Ergocalciferol [Vitamin D2 (1250 1,250 mcg PO MO 10/01/21 03/07/22 History Mcg = 20467 Iu)] Fenofibrate [Lofibra] 160 mg PO DAILY 30 Days #30 tab 10/03/21 03/07/22 Rx Fluticasone/Umeclidin/Vilanter 1 puff INHALATION RT-DAILY 01/30/22 03/07/22 History [Trelegy Ellipta 100-62.5-25] Acetaminophen Tab [Tylenol] 650 mg PO Q4HR PRN tab 02/11/22 03/07/22 Rx Atorvastatin [Lipitor] 40 mg PO HS #30 tab 02/11/22 03/07/22 Rx Furosemide [Lasix] 20 mg PO DAILY #30 tab 02/11/22 03/07/22 Rx Pantoprazole [Protonix] 40 mg PO AC-BRKFST #30 tab 02/11/22 03/07/22 Rx Meclizine [Antivert] 25 mg PO BID PRN #60 tab 03/02/22 03/07/22 Rx Glimepiride [Amaryl] 2 mg PO BID 03/07/22 03/07/22 History Metoprolol Tartrate [Lopressor] 75 mg PO BID 03/07/22 03/07/22 History Nitroglycerin Sl Tabs [Nitrostat] 0.4 mg SL Q5M PRN 03/07/22 03/07/22 History Warfarin [Coumadin] 3 mg PO DAILY@1800 03/07/22 03/07/22 History Allergies Allergy/AdvReac Type Severity Reaction Status Date / Time No Known Allergies Allergy Verified 03/07/22 08:38 Physical Exam Vitals: Vital Signs Temp Pulse Pulse Resp BP BP Pulse Ox 03/07/22 12:17 98.6 F 98 16 122/77 96 03/07/22 04:01 98.9 F 102 H 18 114/77 98 03/07/22 03:27 98.7 F 92 18 110/73 03/06/22 21:21 100.6 F H 110 H 22 107/66 97 Intake and Output 03/06/22 03/07/22 03/07/22 22:59 06:59 14:59 Other: Voiding Method Toilet Toilet # Voids 1 Weight 108.862 kg 108.862 kg - Exam PHYSICAL EXAM: VITAL SIGNS: [As above] GENERAL: Alert and oriented 3, Sitting up in chair,NAD HEENT: Conjunctivae normal. eyes normal. MMM. NECK: Supple, No JVD. CARDIOVASCULAR: S1, S2 regular. mechanical click. RESPIRATION: Unlabored, Equal air entry, bilateral bases diminished. ABDOMEN: Soft, nondistended, tender left lower quadrant into groin . No guarding. +BS EXTREMITIES: Trace Left thigh redness, left lower extremity with minimal induration, likely reddened, no tenderness. No skin breaks nor bites noted. Tender left groin lymph nodes, Positive DP pulse NERVOUS SYSTEM: Cranial N 2-12 grossly normal.No focal deficits.Strength and sensation grossly intact. Skin: Warm and dry, no rash Results CBC & Chem 7: 03/06/22 22:00 03/06/22 22:00 Labs: Abnormal Lab Results - Last 24 Hours (Table) 03/06/22 03/06/22 03/06/22 Range/Units 22:00 22:00 22:00 WBC 15.2 H (3.8-10.6) k/uL Neutrophils # 12.9 H (1.3-7.7) k/uL PT 19.3 H (9.0-12.0) sec INR 1.9 H (<1.2) Sodium 132 L (137-145) mmol/L Carbon Dioxide 19 L (22-30) mmol/L Creatinine 1.49 H (0.66-1.25) mg/dL C-Reactive Protein 19.6 H (<1.0) mg/dL 03/07/22 Range/Units 10:15 WBC (3.8-10.6) k/uL Neutrophils # (1.3-7.7) k/uL PT 19.2 H (9.0-12.0) sec INR 1.9 H (<1.2) Sodium (137-145) mmol/L Carbon Dioxide (22-30) mmol/L Creatinine (0.66-1.25) mg/dL C-Reactive Protein (<1.0) mg/dL Thrombosis Risk Factor Assmnt - Choose All That Apply Any of the Below Risk Factors Present?: Yes Each Factor Represents 1 point: Abnormal pulmonary function (COPD), Acute FL, Age 41-60 years, Obesity (BMI >25) Other Risk Factors: No Other congenital or acquired thrombophilia - If yes, enter type in comment: No Thrombosis Risk Factor Assessment Total Risk Factor Score: 4 Thrombosis Risk Factor Assessment Level: Moderate Risk Assessment and Plan Assessment: Sepsis secondary to left lower extremity cellulitis, in a patient with history of recurrent cellulitis, mechanical valve Leukocytosis Recent Symptomatic Bicuspid calcified aortic stenosis and insufficiency status post AVR with mechanical valve, ligation of left atrial appendage 02/04 History of Postoperative paroxysmal atrial fibrillation History of Hypercoagulopathy, on Coumadin, postop, required vitamin K CAD, history of [place], stents History of COVID June 2021 COPD Obstructive sleep apnea, Diabetes mellitus, hemoglobin A1c 5.8 Gastroesophageal reflux disease Hypertension Hyperlipidemia Ongoing Nicotine dependence Morbid obesity, BMI 37.6 Plan: Continue on current medication regime ,monitoring and symptomatic treatment. Daily PT/INR, anticoagulated on Coumadin. Blood cultures/MRSA nasal screen in progress. IV antibiotics adjusted to vancomycin and Unasyn. Close monitoring of renal function with repeat labs ordered for a.m. Cardiology consulted secondary to recent mechanical valve, sepsis-blood cultures in progress. Infectious disease consulted. Smoking cessation reinforced. Prognosis guarded given multiple complex medical issues. The impression and plan of care has been dictated as directed. : I performed a history and examination of this patient, discussed the same with the dictator. I agree with the dictator's note ,documented as a scribe. Any additional findings or plans will be noted.
[2022-03-07 20:16] LABS: Glucose,Whole Blood 89 mg/dL (70-110)
[2022-03-07] MEDS: METOPROLOL TARTRATE 25 MG TAB PO SCH (20:21)
[2022-03-07] MEDS: ATORVASTATIN 40 MG TAB PO SCH (20:21)
--- NOTE | 2022-03-07 23:13 | P.CONS ---
History of Present Illness - Reason for Consult Consult date: 03/07/22 Sepsis Requesting physician: Eber Wheeler - Chief Complaint Left leg swelling and redness x few days - History of Present Illness Patient is a 51-year-old male presenting to the ER last evening for evaluation of left lower extremity swelling and redness that apparently started the day before presentation to the hospital patient denies having any history of any trauma or any scratch noticed the left leg becoming more swollen and red and becoming painful patient described the pain to be more of a dull aching 4-5 out of 10 no radiation and did have some improvement with the Tylenol the patient also have a low-grade fever 100.6 F, with the symptom the patient was evaluated by the ER physician on arrival to the ER as mentioned earlier the patient was febrile patient did have white count of 15.2 with a left shift creatinine was mildly elevated at 1.4liver exams are normal CRP was 19.6 patient did have x- rays of the tibia and fibula that was negative for any bony abnormality blood cultures obtained which are currently pending patient was started on vancomycin and Unasyn infectious disease was consulted for further management of antibiotic therapy Review of Systems Positive point has been mentioned in the HPI rest of the systems are negative Past Medical History Past Medical History: Coronary Artery Disease (CAD), COPD, GERD/Reflux, Hyperlipidemia, Hypertension, Myocardial Infarction (AL), Osteoarthritis (OA), Pulmonary Embolus (PE) Additional Past Medical History / Comment(s): Bronchitis, gastric ulcer as a teen, 2017 L leg cellulitis, chronic low back pain, vertigo Last Myocardial Infarction Date:: February 2019 History of Any Multi-Drug Resistant Organisms: None Reported Past Surgical History: Heart Catheterization With Stent Additional Past Surgical History / Comment(s): Egd, colonoscopy, aortic valve replacement Past Anesthesia/Blood Transfusion Reactions: No Reported Reaction Date of Last Stent Placement:: February of 2019 Past Psychological History: No Psychological Hx Reported Additional Psychological History / Comment(s): Pt resides with his fiancee. He is independent. Smoking Status: Current every day smoker Past Alcohol Use History: None Reported Additional Past Alcohol Use History / Comment(s): Pt started smoking in 1979 and is a 1 ppd smoker. Past Drug Use History: None Reported - Past Family History Father Family Medical History: Coronary Artery Disease (CAD), Myocardial Infarction (AL) Additional Family Medical History / Comment(s): Father of AL at the age of 71 yrs. Sister(s) Family Medical History: No Reported History Additional Family Medical History / Comment(s): Sister has a heart murmur. Mother Family Medical History: Cancer Medications and Allergies Home Medications Medication Instructions Recorded Confirmed Type Aspirin 81 mg PO DAILY #30 chew 01/21/19 03/07/22 Rx Albuterol Inhaler [Ventolin Hfa 2 puff INHALATION RT-QID PRN 10/01/21 03/07/22 History Inhaler] Ergocalciferol [Vitamin D2 (1250 1,250 mcg PO MO 10/01/21 03/07/22 History Mcg = 29043 Iu)] Fenofibrate [Lofibra] 160 mg PO DAILY 30 Days #30 tab 10/03/21 03/07/22 Rx Fluticasone/Umeclidin/Vilanter 1 puff INHALATION RT-DAILY 01/30/22 03/07/22 History [Trelegy Ellipta 100-62.5-25] Acetaminophen Tab [Tylenol] 650 mg PO Q4HR PRN tab 02/11/22 03/07/22 Rx Atorvastatin [Lipitor] 40 mg PO HS #30 tab 02/11/22 03/07/22 Rx Furosemide [Lasix] 20 mg PO DAILY #30 tab 02/11/22 03/07/22 Rx Pantoprazole [Protonix] 40 mg PO AC-BRKFST #30 tab 02/11/22 03/07/22 Rx Meclizine [Antivert] 25 mg PO BID PRN #60 tab 03/02/22 03/07/22 Rx Glimepiride [Amaryl] 2 mg PO BID 03/07/22 03/07/22 History Metoprolol Tartrate [Lopressor] 75 mg PO BID 03/07/22 03/07/22 History Nitroglycerin Sl Tabs [Nitrostat] 0.4 mg SL Q5M PRN 03/07/22 03/07/22 History Warfarin [Coumadin] 3 mg PO DAILY@1800 03/07/22 03/07/22 History Allergies Allergy/AdvReac Type Severity Reaction Status Date / Time No Known Allergies Allergy Verified 03/07/22 08:38 Physical Exam Vitals: Vital Signs Temp Pulse Pulse Resp BP BP Pulse Ox 03/07/22 12:17 98.6 F 98 16 122/77 96 03/07/22 04:01 98.9 F 102 H 18 114/77 98 03/07/22 03:27 98.7 F 92 18 110/73 03/06/22 21:21 100.6 F H 110 H 22 107/66 97 Intake and Output 03/06/22 03/07/22 03/07/22 22:59 06:59 14:59 Other: Voiding Method Toilet Toilet # Voids 1 Weight 108.862 kg 108.862 kg GENERAL DESCRIPTION: Middle-aged male lying in bed, no distress. No tachypnea or accessory muscle of respiration use. HEENT: Shows Pallor , no scleral icterus. Oral mucous membrane is dry. No pharyngeal erythema or thrush NECK: Trachea central, no thyromegaly. LUNGS: Unlabored breathing. Clear to auscultation anteriorly. No wheeze or crackle. HEART: S1, S2, regular rate and rhythm. No loud murmur ABDOMEN: Soft, no tenderness , guarding or rigidity, no organomegaly EXTREMITIES: Left leg with swelling and redness warm and tender to touch SKIN: No rash, no masses palpable. NEUROLOGICAL: The patient is awake, alert, oriented x3, mood and affect normal. Results CBC & Chem 7: 03/06/22 22:00 03/06/22 22:00 Labs: Abnormal Lab Results - Last 24 Hours (Table) 03/06/22 03/06/22 03/06/22 Range/Units 22:00 22:00 22:00 WBC 15.2 H (3.8-10.6) k/uL Neutrophils # 12.9 H (1.3-7.7) k/uL PT 19.3 H (9.0-12.0) sec INR 1.9 H (<1.2) Sodium 132 L (137-145) mmol/L Carbon Dioxide 19 L (22-30) mmol/L Creatinine 1.49 H (0.66-1.25) mg/dL C-Reactive Protein 19.6 H (<1.0) mg/dL 03/07/22 Range/Units 10:15 WBC (3.8-10.6) k/uL Neutrophils # (1.3-7.7) k/uL PT 19.2 H (9.0-12.0) sec INR 1.9 H (<1.2) Sodium (137-145) mmol/L Carbon Dioxide (22-30) mmol/L Creatinine (0.66-1.25) mg/dL C-Reactive Protein (<1.0) mg/dL Assessment and Plan (1) Cellulitis of left leg without foot Current Visit: Yes Status: Acute Code(s): L03.116 - CELLULITIS OF LEFT LOWER LIMB SNOMED Code(s): 333064736 (2) Sepsis Current Visit: Yes Status: Acute Code(s): A41.9 - SEPSIS, UNSPECIFIED ORGANISM SNOMED Code(s): 69027622 Plan: 1patient presented to hospital with sepsis and suspected have a fever elevated white count source is left lower extremity cellulitis with diffuse swelling redness likely streptococcal disease. 2 Patient with renal insufficiency and high risk of nephrotoxicity from vancomycin. 3discontinue vancomycin and Unasyn. 4we will start the patient cefazolin 2 g every 8 hours. 5Marked area of the redness and apply Amrik wrap to the left leg from just above the toe to below the knee. We will follow on clinical condition and cultures to further adjust medication if needed Thank you for this consultation will follow this patient along with you Time with Patient: Greater than 30
[2022-03-08] MEDS: ACETAMINOPHEN TAB 325 MG TAB PO PRN ×2 (00:18→07:21)
[2022-03-08] MEDS: SODIUM CHLORIDE 0.9% 1,000 ML IV SCH ×4 (00:35→22:12)
[2022-03-08 07:11] LABS: Glucose,Whole Blood 84 mg/dL (70-110)
[2022-03-08] MEDS: INSULIN ASPART (NovoLOG) 100 UNIT/ML VIAL SQ SCH ×4 (07:24→20:32)
[2022-03-08] MEDS: IPRATROPIUM 0.5 MG/2.5 ML NEBU INHALATION SCH ×4 (07:35→20:37)
[2022-03-08] MEDS: SYMBICORT 80-4.5 MCG INHALER INHALATION SCH ×2 (07:35→20:37)
[2022-03-08] MEDS: GLIMEPIRIDE 2 MG TAB PO SCH ×2 (08:35→20:43)
[2022-03-08] MEDS: FUROSEMIDE 20 MG TAB PO SCH (08:35)
[2022-03-08] MEDS: FENOFIBRATE 160 MG TAB PO SCH (08:35)
[2022-03-08] MEDS: PANTOPRAZOLE 40 MG TABLET PO SCH (08:35)
[2022-03-08 09:05] LABS: Basophils # (A) 0.04 X 10*3/uL (0.00-0.10); Basophils % (A) 0.6 %; Eosinophils # (A) 0.23 X 10*3/uL (0.04-0.35); Eosinophils % (A) 3.2 %; HGB 11.5 g/dL (13.0-17.0); Immature Grans, Automated 0.6 %; Lymphocytes # (A) 1.91 X 10*3/uL (0.90-5.00); Lymphocytes % (A) 26.3 %; MCH 26.4 pg (27.0-32.0); MCHC 31.1 g/dL (32.0-37.0); MCV 85.1 fL (80.0-97.0); Mean Platelet Volume 10.3 fL (9.5-12.2); Monocytes % (A) 8.3 %; NRBC Per 100 WBC 0 /100 WBCS (0.0-0.0); Neutrophils # (A) 4.43 X 10*3/uL (1.80-7.70); Platelet Count 197 X 10*3/uL (140-440); RBC 4.35 X 10*6/uL (4.40-5.60); RDW 14.1 % (11.5-14.5); WBC 7.25 X 10*3/uL (4.50-10.00)
[2022-03-08] MEDS: METOPROLOL TARTRATE 25 MG TAB PO SCH ×2 (09:07→20:43)
[2022-03-08] MEDS: ASPIRIN 81 MG PO SCH (09:07)
[2022-03-08 09:36] LABS: African American GFR (CKD) 89.6 (60.0-200.0); Albumin 3.1 g/dL (3.8-4.9); Albumin/Globulin Ratio 1.41 (1.60-3.17); Anion Gap 7.5 mmol/L (10.00-18.00); BUN/Creat Ratio 9.73 Ratio (12.00-20.00); Blood Urea Nitrogen 10.7 mg/dL (9.0-27.0); Carbon Dioxide 23.5 mmol/L (20.0-27.5); Globulin 2.2 g/dL (1.6-3.3); Non-African American GFR(CKD) 77.3 (60.0-200.0); Potassium 4.2 mmol/L (3.5-5.5); Total Bilirubin 0.3 mg/dL (0.30-1.20); Total Protein 5.3 g/dL (6.2-8.2)
--- NOTE | 2022-03-08 09:51 | P.PN ---
Subjective Patient is a pleasant 51-year-old male with history of bicuspid valve with moderate to severe aortic stenosis and moderate aortic insufficiency Status post Mechanical aortic valve replacement with a 25 mm On-X mechanical valve, ligation of the left atrial appendage on 01/31/2022, tobacco abuse, Coronary artery disease status post stenting of the RCA in 2019, COPD, CONNIE, borderline diabetes mellitus type 2, hypertension, chronic nicotine dependence. He follows with Dr. Jin. We have been asked to see in consultation for mechanical valve and poss ible sepsis. Patient presents emergency department with complaints of left lower extremity cellulitis, fever, chills, night sweats. He states his symptoms began yesterday, he had a fever of 100.9 at home, and noticed left lower extremity redness. He came to the emergency department for further evaluation. He denies any chest pain, shortness of breath, symptoms of orthopnea PND, palpitations, lightheadedness, dizziness, syncope or near syncope. He does endorse some blood in his stool a few weeks ago, which resolved. He states he is compliant with his medication. He denies any recent cuts, scrapes, wounds. Denies any recent travel or in [place]. DIAGNOSTICS * Echocardiogram 02/10/2022 EF 45-50%, small pericardial effusion, no evidence of tamponade, aortic valve, tricuspid valve and pulmonic valve not well visualized. * Heart catheterization 03/2021 showed mild disease of the proximal RCA and a patent stent in the mid RCA. 03/08 Patient seen and examined at bedside, sitting at the edge the bed, no acute distress. He denies any chest pain, shortness of breath, fever, cough, chills. He has been afebrile. Preliminary blood cultures were negative growth to date. Infectious disease following an patient is on IV cefazolin. His vital signs are stable Labs: INR is pending. Sodium 140, potassium 4.2, BUN 10, serum creatinine 1.1, hemoglobin 11.5 PHYSICAL EXAMINATION Blood pressure 113/69, heart 83, afebrile, saturations 96% on room air CONSTITUTIONAL: No apparent distress. HEENT: Neck SUpple No JVD. CHEST EXAMINATION: Lungs are clear to auscultation. No chest wall tenderness is noted on palpation or with deep breathing. HEART EXAMINATION: Regular rate and rhythm. S1, S2 heard. AV mechanical click audible, No murmurs, gallops or rubs heard ABDOMEN: Soft, nontender. Positive bowel sounds. EXTREMITIES: Left lower extremity redness below the knee and above left ankle. Wrapped in GUERLINE bandage. Small redness in the left upper thigh, 2+ peripheral pulses, no lower extremity edema and no calf tenderness. NEUROLOGIC EXAMINATION: Patient is awake, alert and oriented x3. ASSESSMENT Fever, Chills, night sweats Left lower extremity cellulitis Leukocytosis Bicuspid Aortic stenosis and aortic insufficiency status post On-X mechanical aortic valve 01/31/2022 Postoperative paroxysmal atrial fibrillation Hypertension CAD with prior history of PCI RCA in 2019, with only mild disease involving the proximal RCA 30% by heart catheterization 03/2021 Borderline diabetes mellitus 2 COPD Obstructive sleep apnea Chronic nicotine dependence History of pulmonary embolism on Eliquis outpatient PLAN Preliminary blood cultures negative growth to date Infectious disease following Continue anticoagulation with Coumadin, INR pending today Continue home medications with aspirin, statin, beta milton Smoking cessation discussed and highly recommended From cardiology perspective, patient stable to be discharged when cleared by primary noted consultants. Recommend patient follow-up with Dr. Jin for his appointment next week, patient instructed to get his INR checked next week in the office as well. Nurse practitioner note has been reviewed by physician. Signing provider agrees with the documented findings, assessment, and plan of care. Objective - Vital Signs Vital signs: Vital Signs Temp 98.1 F 03/08/22 04:45 Pulse 82 03/08/22 07:47 Resp 18 03/08/22 04:45 BP 113/69 03/08/22 04:45 Pulse Ox 96 03/08/22 04:45 FiO2 Intake & Output 03/07/22 03/08/22 03/08/22 18:59 06:59 18:59 Intake Total 1560 400 Balance 1560 400 Intake: Intake, IV Titration 1560 Amount Sodium Chloride 0.9% 1, 1560 000 ml @ 130 mls/hr IV . Q7H42M [facility] Rx#:[id number] Oral 400 Other: Voiding Method Toilet Toilet # Voids 2 - Labs CBC & Chem 7: 03/08/22 05:33 03/08/22 05:33 Labs: Abnormal Lab Results - Last 24 Hours (Table) 03/07/22 03/07/22 03/08/22 Range/Units 10:15 17:42 05:33 RBC 4.35 L (4.40-5.60) X 10*6/uL Hgb 11.5 L (13.0-17.0) g/dL Hct 37.0 L (39.6-50.0) % MCH 26.4 L (27.0-32.0) pg MCHC 31.1 L (32.0-37.0) g/dL PT 19.2 H (9.0-12.0) sec INR 1.9 H (<1.2) Anion Gap (10.00-18.00) mmol/L BUN/Creatinine Ratio (12.00-20.00) Ratio Glucose (70-110) mg/dL POC Glucose (mg/dL) 125 H (70-110) mg/dL Calcium (8.7-10.3) mg/dL AST (14-35) U/L Total Protein (6.2-8.2) g/dL Albumin (3.8-4.9) g/dL Albumin/Globulin Ratio (1.60-3.17) g/dL 03/08/22 Range/Units 05:33 RBC (4.40-5.60) X 10*6/uL Hgb (13.0-17.0) g/dL Hct (39.6-50.0) % MCH (27.0-32.0) pg MCHC (32.0-37.0) g/dL PT (9.0-12.0) sec INR (<1.2) Anion Gap 7.50 L (10.00-18.00) mmol/L BUN/Creatinine Ratio 9.73 L (12.00-20.00) Ratio Glucose 69 L (70-110) mg/dL POC Glucose (mg/dL) (70-110) mg/dL Calcium 8.0 L (8.7-10.3) mg/dL AST 37 H (14-35) U/L Total Protein 5.3 L (6.2-8.2) g/dL Albumin 3.1 L (3.8-4.9) g/dL Albumin/Globulin Ratio 1.41 L (1.60-3.17) g/dL Microbiology - Last 24 Hours (Table) 03/06/22 22:00 Blood Culture - Preliminary Blood No Growth after 24 hours 03/06/22 21:45 Blood Culture - Preliminary Blood No Growth after 24 hours 03/07/22 10:37 Nasal Screen MRSA/MSSA - Preliminary Nasal Swab
[2022-03-08] MEDS ORDERED: VANCOMYCIN 1,750 MG in SODIUM CHLORIDE 0.9% 500 ML 500 ML IVPB SCH (10:00)
[2022-03-08 10:29] LABS: INR 3.11 (0.90-1.11); Prothrombin Time 33.3 sec (9.9-11.9)
[2022-03-08] MEDS: CYCLOBENZAPRINE 10 MG TAB PO PRN ×2 (11:19→19:22)
[2022-03-08 11:23] LABS: Glucose,Whole Blood 120 mg/dL (70-110)
--- NOTE | 2022-03-08 14:12 | P.PN ---
Subjective Progress Note Date: 03/08/22 H&P Date: 03/07/22 Chief Complaint: Left lower extremity cellulitis This is a 51-year-old gentleman with past medical history of CAD, [place], stenting of RCA ,recent AVR with mechanical valve 02/04, PE on Eliquis, COPD, obstructive sleep apnea ,diabetes mellitus, gastroesophageal reflux disease, hypertension, hyperlipidemia, nicotine dependence, morbid obesity, Covid June 2021, recurrent lower extremity cellulitis, admitted with complaints of left lower e xtremity cellulitis. Reports sweats and chills 2 days, developed left calf pain accompanied by sweats and chills after grocery shopping-states he has recurrent cellulitis of the left lower extremity. Denies syncope. Denies lightheadedness, dizziness or focal deficits. Skin intact, no visual bites noted. Denies numbness or tingling of the affected site. Tib-fib fracture reported negative, no fracture, no focal bone distraction, no effusion. T-max 100.6, WBC 15.2., Sodium 132, creatinine 1.49(1.28 on discharge in ). lactic acid 1.1, CRP 19.6 .IV antibiotics adjusted from clindamycin to vancomycin and Unasyn. Blood sugars controlled, A1c 5.8. Denies any chest pain, palpitations or shortness of breath. Anticoagulated on Coumadin with INR 1.9. 03/08/2022 evaluated by infectious disease, antibiotics further adjusted, maintained on cefazolin. Renal function stable. Significant clinical improvement. Denies chills or sweats. Denies chest pain, palpitations or shortness of breath. Complains of tweaking his back upon getting up and having muscle spasms. Good diet intake with no nausea or vomiting. Passing flatus. Afebrile, normal WBC. Preliminary blood cultures reporting no growth. Anticoagulated on Coumadin, INR 3.11. Objective - Vital Signs Vital signs: Vital Signs Temp 97.6 F 03/08/22 11:28 Pulse 81 03/08/22 11:37 Resp 20 03/08/22 11:28 BP 116/78 03/08/22 11:28 Pulse Ox 97 03/08/22 11:28 FiO2 Intake & Output 03/07/22 03/08/22 03/08/22 18:59 06:59 18:59 Intake Total 1560 400 Balance 1560 400 Intake: Intake, IV Titration 1560 Amount Sodium Chloride 0.9% 1, 1560 000 ml @ 130 mls/hr IV . Q7H42M [facility] Rx#:[id number] Oral 400 Other: Voiding Method Toilet Toilet # Voids 2 - Exam PHYSICAL EXAM: VITAL SIGNS: [As above] GENERAL: Alert and oriented 3, Sitting up at side of bed,NAD HEENT: Conjunctivae normal. eyes normal. MMM. NECK: Supple, No JVD. CARDIOVASCULAR: S1, S2 regular. mechanical click. RESPIRATION: Unlabored, Equal air entry, bilateral bases diminished. ABDOMEN: Soft, nondistended, tender left lower quadrant into groin . No gua rding. +BS EXTREMITIES: Trace Left thigh redness, left lower extremity without induration, minimal redness, minimal tenderness, without progression from prior outlined area. Amrik wrapped. Positive DP pulse NERVOUS SYSTEM: Cranial N 2-12 grossly normal.No focal deficits.Strength and sensation grossly intact. Skin: Warm and dry, no rash - Labs CBC & Chem 7: 03/08/22 05:33 03/08/22 05:33 Labs: Abnormal Lab Results - Last 24 Hours (Table) 03/07/22 03/08/22 03/08/22 Range/Units 17:42 05:33 05:33 RBC 4.35 L (4.40-5.60) X 10*6/uL Hgb 11.5 L (13.0-17.0) g/dL Hct 37.0 L (39.6-50.0) % MCH 26.4 L (27.0-32.0) pg MCHC 31.1 L (32.0-37.0) g/dL PT 33.3 H (9.9-11.9) sec INR 3.11 H (0.90-1.11) Anion Gap (10.00-18.00) mmol/L BUN/Creatinine Ratio (12.00-20.00) Ratio Glucose (70-110) mg/dL POC Glucose (mg/dL) 125 H (70-110) mg/dL Calcium (8.7-10.3) mg/dL AST (14-35) U/L Total Protein (6.2-8.2) g/dL Albumin (3.8-4.9) g/dL Albumin/Globulin Ratio (1.60-3.17) g/dL 03/08/22 03/08/22 Range/Units 05:33 11:20 RBC (4.40-5.60) X 10*6/uL Hgb (13.0-17.0) g/dL Hct (39.6-50.0) % MCH (27.0-32.0) pg MCHC (32.0-37.0) g/dL PT (9.9-11.9) sec INR (0.90-1.11) Anion Gap 7.50 L (10.00-18.00) mmol/L BUN/Creatinine Ratio 9.73 L (12.00-20.00) Ratio Glucose 69 L (70-110) mg/dL POC Glucose (mg/dL) 120 H (70-110) mg/dL Calcium 8.0 L (8.7-10.3) mg/dL AST 37 H (14-35) U/L Total Protein 5.3 L (6.2-8.2) g/dL Albumin 3.1 L (3.8-4.9) g/dL Albumin/Globulin Ratio 1.41 L (1.60-3.17) g/dL Microbiology - Last 24 Hours (Table) 03/06/22 22:00 Blood Culture - Preliminary Blood No Growth after 24 hours 03/06/22 21:45 Blood Culture - Preliminary Blood No Growth after 24 hours 03/07/22 10:37 Nasal Screen MRSA/MSSA - Preliminary Nasal Swab Assessment and Plan Assessment: Sepsis secondary to left lower extremity cellulitis, in a patient with history of recurrent cellulitis, mechanical valve Leukocytosis Recent Symptomatic Bicuspid calcified aortic stenosis and insufficiency status post AVR with mechanical valve, ligation of left atrial appendage 02/04 History of Postoperative paroxysmal atrial fibrillation History of Hypercoagulopathy, on Coumadin, postop, required vitamin K CAD, history of [place], stents History of COVID June 2021 COPD Obstructive sleep apnea, Diabetes mellitus, hemoglobin A1c 5.8 Gastroesophageal reflux disease Hypertension Hyperlipidemia Ongoing Nicotine dependence Morbid obesity, BMI 37.6 Plan: Continue on current medication regime ,monitoring and symptomatic treatment. Daily PT/INR, anticoagulated on Coumadin-as per pharmacy dosing. IV antibiotics as per ID.Smoking cessation reinforced. discharge planning in progress tentatively for tomorrow pending blood cultures and clearance per infectious disease .Prognosis guarded given multiple complex medical issues. The impression and plan of care has been dictated as directed. : I performed a history and examination of this patient, discussed the same with the dictator. I agree with the dictator's note ,documented as a scribe. Any additional findings or plans will be noted.
[2022-03-08 15:51] VITALS: BMI 37.5
[2022-03-08 17:16] LABS: Glucose,Whole Blood 144 mg/dL (70-110)
[2022-03-08] MEDS ORDERED: WARFARIN 3 MG TAB PO ONE (18:00)
[2022-03-08 20:08] LABS: Glucose,Whole Blood 139 mg/dL (70-110)
[2022-03-08] MEDS: ATORVASTATIN 40 MG TAB PO SCH (20:43)
[2022-03-09 06:10] LABS: Prothrombin Time 55.1 sec (9.0-12.0)
[2022-03-09 06:24] LABS: INR 5.5 (<1.2)
[2022-03-09 07:49] LABS: Glucose,Whole Blood 104 mg/dL (70-110)
[2022-03-09] MEDS: SYMBICORT 80-4.5 MCG INHALER INHALATION SCH ×2 (07:49→19:23)
[2022-03-09] MEDS: IPRATROPIUM 0.5 MG/2.5 ML NEBU INHALATION SCH ×4 (07:49→19:23)
[2022-03-09] MEDS: INSULIN ASPART (NovoLOG) 100 UNIT/ML VIAL SQ SCH ×4 (08:06→19:56)
[2022-03-09] MEDS: SODIUM CHLORIDE 0.9% 1,000 ML IV SCH ×3 (09:11→23:59)
[2022-03-09] MEDS: CYCLOBENZAPRINE 10 MG TAB PO PRN (09:11)
[2022-03-09] MEDS: FENOFIBRATE 160 MG TAB PO SCH (09:12)
[2022-03-09] MEDS: PANTOPRAZOLE 40 MG TABLET PO SCH (09:12)
[2022-03-09] MEDS: GLIMEPIRIDE 2 MG TAB PO SCH (09:12)
[2022-03-09] MEDS: ASPIRIN 81 MG PO SCH (09:12)
[2022-03-09] MEDS: FUROSEMIDE 20 MG TAB PO SCH (09:12)
[2022-03-09] MEDS: METOPROLOL TARTRATE 25 MG TAB PO SCH ×2 (09:12→19:55)
[2022-03-09 09:13] LABS: Basophils # (A) 0.04 X 10*3/uL (0.00-0.10); Basophils % (A) 0.6 %; Eosinophils # (A) 0.59 X 10*3/uL (0.04-0.35); Eosinophils % (A) 8.4 %; HCT 33.6 % (39.6-50.0); Immature Grans, Automated 0.6 %; Lymphocytes # (A) 1.89 X 10*3/uL (0.90-5.00); Lymphocytes % (A) 26.9 %; MCH 27.2 pg (27.0-32.0); MCHC 32.7 g/dL (32.0-37.0); MCV 83.2 fL (80.0-97.0); Mean Platelet Volume 10.3 fL (9.5-12.2); Monocytes # (A) 0.56 X 10*3/uL (0.20-1.00); NRBC Per 100 WBC 0 /100 WBCS (0.0-0.0); Neutrophils # (A) 3.91 X 10*3/uL (1.80-7.70); Neutrophils % (A) 55.5 %; Platelet Count 209 X 10*3/uL (140-440); RBC 4.04 X 10*6/uL (4.40-5.60); RDW 14.2 % (11.5-14.5); WBC 7.03 X 10*3/uL (4.50-10.00)
[2022-03-09 09:26] LABS: Magnesium 2.1 mg/dL (1.5-2.4)
[2022-03-09 09:58] LABS: African American GFR (CKD) 114.2 (60.0-200.0); Anion Gap 9.7 mmol/L (10.00-18.00); BUN/Creat Ratio 11.44 Ratio (12.00-20.00); Blood Urea Nitrogen 10.3 mg/dL (9.0-27.0); Calcium 7.8 mg/dL (8.7-10.3); Carbon Dioxide 21.3 mmol/L (20.0-27.5); Non-African American GFR(CKD) 98.5 (60.0-200.0); Potassium 3.9 mmol/L (3.5-5.5)
[2022-03-09 11:58] LABS: Glucose,Whole Blood 70 mg/dL (70-110)
--- NOTE | 2022-03-09 12:39 | US ---
EXAMINATION TYPE: US extremity nonvasc mass LT DATE OF EXAM: 03/09/2022 COMPARISON: NONE CLINICAL HISTORY: swelling , rule out abscess ,hematoma. Patient entire calf from below knee to ankle encompassing anterior to posterior is swollen. A 42cm circumference and 27cm from anterior to posterior segment. Ultrasound shows edematous tissue. IMPRESSION: Suspect diffuse cellulitis. No evidence for drainable abscess.
--- NOTE | 2022-03-09 13:54 | P.PN ---
Subjective Progress Note Date: 03/08/22 Principal diagnosis: Left lower extremity cellulitis Patient is a 51 year old male presenting to the hospital with increasing swelling redness of the left lower extremity has been diagnosed with a left lower extremity cellulitis. On today's evaluation that is 03/08/2022, the patient denies having any fever or any chills, the patient is breathing comfortably. No chest pain or shortness of breath or cough no abdominal pain left leg swelling and redness has slightly d ecreased Objective - Vital Signs Vital signs: Vital Signs Temp 97.6 F 03/08/22 11:28 Pulse 81 03/08/22 11:37 Resp 20 03/08/22 11:28 BP 116/78 03/08/22 11:28 Pulse Ox 97 03/08/22 11:28 FiO2 Intake & Output 03/07/22 03/08/22 03/08/22 18:59 06:59 18:59 Intake Total 1560 400 Balance 1560 400 Intake: Intake, IV Titration 1560 Amount Sodium Chloride 0.9% 1, 1560 000 ml @ 130 mls/hr IV . Q7H42M [facility] Rx#:[id number] Oral 400 Other: Voiding Method Toilet Toilet # Voids 2 - Exam GENERAL DESCRIPTION: Middle-age male lying in bed in no distress RESPIRATORY SYSTEM: Unlabored breathing , decreased breath sounds at bases HEART: S1 S2 regular rate and rhythm , ABDOMEN: Soft , no tenderness EXTREMITIES: Left leg swelling and redness has slightly decreased - Labs CBC & Chem 7: 03/09/22 05:29 03/09/22 05:29 Labs: Abnormal Lab Results - Last 24 Hours (Table) 03/07/22 03/08/22 03/08/22 Range/Units 17:42 05:33 05:33 RBC 4.35 L (4.40-5.60) X 10*6/uL Hgb 11.5 L (13.0-17.0) g/dL Hct 37.0 L (39.6-50.0) % MCH 26.4 L (27.0-32.0) pg MCHC 31.1 L (32.0-37.0) g/dL PT 33.3 H (9.9-11.9) sec INR 3.11 H (0.90-1.11) Anion Gap (10.00-18.00) mmol/L BUN/Creatinine Ratio (12.00-20.00) Ratio Glucose (70-110) mg/dL POC Glucose (mg/dL) 125 H (70-110) mg/dL Calcium (8.7-10.3) mg/dL AST (14-35) U/L Total Protein (6.2-8.2) g/dL Albumin (3.8-4.9) g/dL Albumin/Globulin Ratio (1.60-3.17) g/dL 03/08/22 03/08/22 Range/Units 05:33 11:20 RBC (4.40-5.60) X 10*6/uL Hgb (13.0-17.0) g/dL Hct (39.6-50.0) % MCH (27.0-32.0) pg MCHC (32.0-37.0) g/dL PT (9.9-11.9) sec INR (0.90-1.11) Anion Gap 7.50 L (10.00-18.00) mmol/L BUN/Creatinine Ratio 9.73 L (12.00-20.00) Ratio Glucose 69 L (70-110) mg/dL POC Glucose (mg/dL) 120 H (70-110) mg/dL Calcium 8.0 L (8.7-10.3) mg/dL AST 37 H (14-35) U/L Total Protein 5.3 L (6.2-8.2) g/dL Albumin 3.1 L (3.8-4.9) g/dL Albumin/Globulin Ratio 1.41 L (1.60-3.17) g/dL Microbiology - Last 24 Hours (Table) 03/06/22 22:00 Blood Culture - Preliminary Blood No Growth after 24 hours 03/06/22 21:45 Blood Culture - Preliminary Blood No Growth after 24 hours 03/07/22 10:37 Nasal Screen MRSA/MSSA - Preliminary Nasal Swab Assessment and Plan (1) Cellulitis of left leg without foot Current Visit: Yes Status: Acute Code(s): L03.116 - CELLULITIS OF LEFT LOWER LIMB SNOMED Code(s): 875278545 (2) Sepsis Current Visit: Yes Status: Acute Code(s): A41.9 - SEPSIS, UNSPECIFIED ORGANISM SNOMED Code(s): 52690048 Plan: 1patient presented to hospital with sepsis and suspected have a fever elevated white count source is left lower extremity cellulitis with diffuse swelling redness likely streptococcal disease. 2 Patient with renal insufficiency and high risk of nephrotoxicity from vancomycin. 3 patient seemed to have shown some clinical improvement and will continue with the cefazolin along with Amrik wrap Time with Patient: Less than 30
--- NOTE | 2022-03-09 13:55 | P.PN ---
Subjective Progress Note Date: 03/09/22 Principal diagnosis: Left lower extremity cellulitis Patient is a 51 year old male presenting to the hospital with increasing swelling redness of the left lower extremity has been diagnosed with a left lower extremity cellulitis. On today's evaluation that is 03/09/2022, the patient continues to be afebrile, the patient is breathing comfortably on room air, the patient denies chest pain or shortness of breath or cough no abdominal pain left leg swelling and redness has decreased in intensity Objective - Vital Signs Vital signs: Vital Signs Temp 98.2 F 03/09/22 11:50 Pulse 80 03/09/22 11:50 Resp 18 03/09/22 11:50 BP 127/81 03/09/22 11:50 Pulse Ox 98 03/09/22 11:50 FiO2 Intake & Output 03/08/22 03/09/22 03/09/22 18:59 06:59 18:59 Intake Total 1660 500 Balance 1660 500 Weight 108.862 kg Intake: Intake, IV Titration 1660 Amount Sodium Chloride 0.9% 1, 1560 000 ml @ 130 mls/hr IV . Q7H42M [facility] Rx#:[id number] ceFAZolin 2 gm In Sodium 100 Chloride 0.9% 50 ml @ 100 mls/hr IVPB Q8HR [facility] Rx# :[id number] Oral 500 Other: Voiding Method Toilet # Voids 5 3 - Exam GENERAL DESCRIPTION: Middle-age male lying in bed in no distress RESPIRATORY SYSTEM: Unlabored breathing , decreased breath sounds at bases HEART: S1 S2 regular rate and rhythm , ABDOMEN: Soft , no tenderness EXTREMITIES: Left leg swelling and redness has slightly decreased - Labs CBC & Chem 7: 03/09/22 05:29 03/09/22 05:29 Labs: Abnormal Lab Results - Last 24 Hours (Table) 03/08/22 03/08/22 03/09/22 Range/Units 17:14 19:59 05:29 RBC (4.40-5.60) X 10*6/uL Hgb (13.0-17.0) g/dL Hct (39.6-50.0) % Eosinophils # (0.04-0.35) X 10*3/uL PT 55.1 H (9.0-12.0) sec INR 5.5 H* (<1.2) Anion Gap (10.00-18.00) mmol/L BUN/Creatinine Ratio (12.00-20.00) Ratio Glucose (70-110) mg/dL POC Glucose (mg/dL) 144 H 139 H (70-110) mg/dL Calcium (8.7-10.3) mg/dL 03/09/22 03/09/22 Range/Units 05:29 05:29 RBC 4.04 L (4.40-5.60) X 10*6/uL Hgb 11.0 L (13.0-17.0) g/dL Hct 33.6 L (39.6-50.0) % Eosinophils # 0.59 H (0.04-0.35) X 10*3/uL PT (9.0-12.0) sec INR (<1.2) Anion Gap 9.70 L (10.00-18.00) mmol/L BUN/Creatinine Ratio 11.44 L (12.00-20.00) Ratio Glucose 113 H (70-110) mg/dL POC Glucose (mg/dL) (70-110) mg/dL Calcium 7.8 L (8.7-10.3) mg/dL Microbiology - Last 24 Hours (Table) 03/06/22 22:00 Blood Culture - Preliminary Blood No Growth after 48 hours 03/06/22 21:45 Blood Culture - Preliminary Blood No Growth after 48 hours 03/07/22 10:37 Nasal Screen MRSA/MSSA - Final Nasal Swab Staphylococcus aureus,Not MRSA Assessment and Plan (1) Cellulitis of left leg without foot Current Visit: Yes Status: Acute Code(s): L03.116 - CELLULITIS OF LEFT LOWER LIMB SNOMED Code(s): 428715649 (2) Sepsis Current Visit: Yes Status: Acute Code(s): A41.9 - SEPSIS, UNSPECIFIED ORGANISM SNOMED Code(s): 18474166 Plan: 1patient presented to hospital with sepsis and suspected have a fever elevated white count source is left lower extremity cellulitis with diffuse swelling redness likely streptococcal disease. 2 Patient with renal insufficiency and high risk of nephrotoxicity from vancomycin. 3 patient seemed to have shown some clinical improvement, the patient white count has normalized blood culture negative and will continue with the cefazolin with a plan to finish therapy with oral Keflex Time with Patient: Less than 30
[2022-03-09 17:12] LABS: Glucose,Whole Blood 110 mg/dL (70-110)
--- NOTE | 2022-03-09 17:37 | P.PN ---
Subjective This is a pleasant 68 years old female with multiple problems presents because of left leg cellulitis she had mild sepsis on admissions with fever of 100.6 and mild leukocytosis but these both have resolved now with no need for more IV fluids. She is informed closely and currently she is receiving cefazolin. Patient already reports improvement in her left leg cellulitis. Also she has history of pulmonary embolism on Coumadin with supratherapeutic INR coming down today to 5.5. No signs or evidence of bleeding. We will monitor hemoglobin. Glucose is stable around 139. Creatinine improved down to 1.1. X-ray of the left leg showing no fracture. The left leg is pink in color but looks also indurated and with this supratherapeutic INR and recommended ultrasound to rule out hematoma. Although it is felt less likely as the swelling is symmetrical Objective - Vital Signs Vital signs: Vital Signs Temp 98.5 F 03/09/22 05:00 Pulse 91 03/09/22 09:05 Resp 18 03/09/22 05:00 BP 126/84 03/09/22 09:05 Pulse Ox 95 03/09/22 05:00 FiO2 Intake & Output 03/08/22 03/09/22 03/09/22 18:59 06:59 18:59 Intake Total 1660 500 Balance 1660 500 Weight 108.862 kg Intake: Intake, IV Titration 1660 Amount Sodium Chloride 0.9% 1, 1560 000 ml @ 130 mls/hr IV . Q7H42M [facility] Rx#:[id number] ceFAZolin 2 gm In Sodium 100 Chloride 0.9% 50 ml @ 100 mls/hr IVPB Q8HR [facility] Rx# :[id number] Oral 500 Other: Voiding Method Toilet # Voids 5 3 - Exam GENERAL: The patient is alert and oriented x3, not in any acute distress. Well developed, well nourished. HEENT: Pupils are round and equally reacting to light. EOMI. No scleral icterus. No conjunctival pallor. Normocephalic, atraumatic. No pharyngeal erythema. No t hyromegaly. CARDIOVASCULAR: S1 and S2 present. No murmurs, rubs, or gallops. PULMONARY: Chest is clear to auscultation, no wheezing or crackles. ABDOMEN: Soft, nontender, nondistended, normoactive bowel sounds. No palpable organomegaly. MUSCULOSKELETAL: No joint swelling or deformity. -EXTREMITIES: No cyanosis, clubbing, or pedal edema. Left leg is swollen pink and indurated, patient reports improvement NEUROLOGICAL: Gross neurological examination did not reveal any focal deficits. SKIN: No rashes. no petechiae. - Labs CBC & Chem 7: 03/09/22 05:29 03/09/22 05:29 Labs: Abnormal Lab Results - Last 24 Hours (Table) 03/08/22 03/08/22 03/08/22 Range/Units 05:33 11:20 17:14 RBC (4.40-5.60) X 10*6/uL Hgb (13.0-17.0) g/dL Hct (39.6-50.0) % Eosinophils # (0.04-0.35) X 10*3/uL PT 33.3 H (9.9-11.9) sec INR 3.11 H (0.90-1.11) Anion Gap (10.00-18.00) mmol/L BUN/Creatinine Ratio (12.00-20.00) Ratio Glucose (70-110) mg/dL POC Glucose (mg/dL) 120 H 144 H (70-110) mg/dL Calcium (8.7-10.3) mg/dL 03/08/22 03/09/22 03/09/22 Range/Units 19:59 05:29 05:29 RBC 4.04 L (4.40-5.60) X 10*6/uL Hgb 11.0 L (13.0-17.0) g/dL Hct 33.6 L (39.6-50.0) % Eosinophils # 0.59 H (0.04-0.35) X 10*3/uL PT 55.1 H (9.9-11.9) sec INR 5.5 H* (0.90-1.11) Anion Gap (10.00-18.00) mmol/L BUN/Creatinine Ratio (12.00-20.00) Ratio Glucose (70-110) mg/dL POC Glucose (mg/dL) 139 H (70-110) mg/dL Calcium (8.7-10.3) mg/dL 03/09/22 Range/Units 05:29 RBC (4.40-5.60) X 10*6/uL Hgb (13.0-17.0) g/dL Hct (39.6-50.0) % Eosinophils # (0.04-0.35) X 10*3/uL PT (9.9-11.9) sec INR (0.90-1.11) Anion Gap 9.70 L (10.00-18.00) mmol/L BUN/Creatinine Ratio 11.44 L (12.00-20.00) Ratio Glucose 113 H (70-110) mg/dL POC Glucose (mg/dL) (70-110) mg/dL Calcium 7.8 L (8.7-10.3) mg/dL Microbiology - Last 24 Hours (Table) 03/06/22 22:00 Blood Culture - Preliminary Blood No Growth after 48 hours 03/06/22 21:45 Blood Culture - Preliminary Blood No Growth after 48 hours 03/07/22 10:37 Nasal Screen MRSA/MSSA - Final Nasal Swab Staphylococcus aureus,Not MRSA Assessment and Plan Assessment: The flexible cellulitis Coagulopathy secondary to Coumadin History of PE on imaging Mild sepsis on admission, resolved Type 2 diabetes with hypoglycemia Plan: This is a pleasant 51 years old male with left leg cellulitis and supratherapeutic INR Keep holding Coumadin and monitor INR Hemoglobin is 11 no evidence of bleeding Left leg cellulitis is improving on cefazolin with plan to initiate treatment w ith oral Keflex. ID team on the case Pain controlled Past for PT/OT evaluation. Problems and management plan discussed with the patient and he verbalized understanding and acceptance
[2022-03-09] MEDS ORDERED: WARFARIN 0.5 MG TAB PO ONE (18:00)
[2022-03-09] MEDS: ACETAMINOPHEN TAB 325 MG TAB PO PRN (18:05)
[2022-03-09] MEDS: GLIMEPIRIDE 1 MG TAB PO SCH (18:06)
[2022-03-09] MEDS: ATORVASTATIN 40 MG TAB PO SCH (19:55)
[2022-03-09 20:25] LABS: Glucose,Whole Blood 144 mg/dL (70-110)
[2022-03-10 07:14] LABS: Glucose,Whole Blood 112 mg/dL (70-110)
[2022-03-10] MEDS: SYMBICORT 80-4.5 MCG INHALER INHALATION SCH ×2 (07:33→19:22)
[2022-03-10] MEDS: IPRATROPIUM 0.5 MG/2.5 ML NEBU INHALATION SCH ×4 (07:34→19:22)
[2022-03-10 08:19] LABS: INR 3.4 (<1.2); Prothrombin Time 33.9 sec (9.0-12.0)
[2022-03-10] MEDS: INSULIN ASPART (NovoLOG) 100 UNIT/ML VIAL SQ SCH ×4 (08:30→20:54)
[2022-03-10] MEDS: PANTOPRAZOLE 40 MG TABLET PO SCH (09:43)
[2022-03-10] MEDS: FUROSEMIDE 20 MG TAB PO SCH (09:43)
[2022-03-10] MEDS: GLIMEPIRIDE 1 MG TAB PO SCH ×2 (09:43→16:55)
[2022-03-10] MEDS: FENOFIBRATE 160 MG TAB PO SCH (09:43)
[2022-03-10] MEDS: METOPROLOL TARTRATE 25 MG TAB PO SCH ×2 (09:43→20:47)
[2022-03-10] MEDS: ASPIRIN 81 MG PO SCH (09:43)
[2022-03-10] MEDS: SODIUM CHLORIDE 0.9% 1,000 ML IV SCH ×2 (09:45→16:15)
[2022-03-10 12:29] LABS: Glucose,Whole Blood 106 mg/dL (70-110)
[2022-03-10 12:42] LABS: Basophils # (A) 0.06 X 10*3/uL (0.00-0.10); Basophils % (A) 0.7 %; Eosinophils # (A) 0.79 X 10*3/uL (0.04-0.35); Eosinophils % (A) 9.5 %; HCT 35.5 % (39.6-50.0); HGB 11.3 g/dL (13.0-17.0); Immature Grans, Automated 0.8 %; Lymphocytes # (A) 1.99 X 10*3/uL (0.90-5.00); MCH 26.8 pg (27.0-32.0); MCHC 31.8 g/dL (32.0-37.0); MCV 84.1 fL (80.0-97.0); Mean Platelet Volume 10.4 fL (9.5-12.2); Monocytes # (A) 0.62 X 10*3/uL (0.20-1.00); Monocytes % (A) 7.5 %; NRBC Per 100 WBC 0 /100 WBCS (0.0-0.0); Neutrophils # (A) 4.75 X 10*3/uL (1.80-7.70); Neutrophils % (A) 57.5 %; Platelet Count 225 X 10*3/uL (140-440); RBC 4.22 X 10*6/uL (4.40-5.60); RDW 14.1 % (11.5-14.5); WBC 8.28 X 10*3/uL (4.50-10.00)
[2022-03-10 12:50] LABS: African American GFR (CKD) 114.2 (60.0-200.0); Anion Gap 9.3 mmol/L (10.00-18.00); BUN/Creat Ratio 12.44 Ratio (12.00-20.00); Blood Urea Nitrogen 11.2 mg/dL (9.0-27.0); Carbon Dioxide 22.7 mmol/L (20.0-27.5); Non-African American GFR(CKD) 98.5 (60.0-200.0); Potassium 4.1 mmol/L (3.5-5.5)
[2022-03-10] MEDS: ACETAMINOPHEN TAB 325 MG TAB PO PRN (15:45)
[2022-03-10 17:20] LABS: Glucose,Whole Blood 150 mg/dL (70-110)
[2022-03-10] MEDS: ATORVASTATIN 40 MG TAB PO SCH (20:48)
[2022-03-10 20:49] LABS: Glucose,Whole Blood 140 mg/dL (70-110)
--- NOTE | 2022-03-10 22:17 | P.PN ---
Subjective This is a pleasant 68 years old female with multiple problems presents because of left leg cellulitis she had mild sepsis on admissions with fever of 100.6 and mild leukocytosis but these both have resolved now with no need for more IV fluids. She is informed closely and currently she is receiving cefazolin. Patient already reports improvement in her left leg cellulitis. Also she has history of pulmonary embolism on Coumadin with supratherapeutic INR coming down today to 5.5. No signs or evidence of bleeding. We will monitor hemoglobin. Glucose is stable around 139. Creatinine improved down to 1.1. X-ray of the left leg showing no fracture. The left leg is pink in color but looks also indurated and with this supratherapeutic INR and recommended ultrasound to rule out hematoma. Although it is felt less likely as the swelling is symmetrical 03/10/2022 Patient left leg cellulitis is improving slowly and gradually and he was kept on cefazolin. Doppler was negative for hematoma or an abscess. INR is trending down to 3.4, he has history of aortic valve replacement on mechanical valve. patient was counseled about Coumadin use and the tricuspid with interaction and he verbalized understanding Cartilage team on the case. No more fever. Objective - Vital Signs Vital signs: Vital Signs Temp 98.3 F 03/10/22 05:00 Pulse 94 03/10/22 09:40 Resp 18 03/10/22 05:00 BP 132/74 03/10/22 09:40 Pulse Ox 95 03/10/22 05:00 FiO2 Intake & Output 03/09/22 03/10/22 03/10/22 18:59 06:59 18:59 Intake Total 1630 500 Balance 1630 500 Intake: Intake, IV Titration 1630 Amount Sodium Chloride 0.9% 1, 1430 000 ml @ 130 mls/hr IV . Q7H42M [facility] Rx#:[id number] ceFAZolin 2 gm In Sodium 200 Chloride 0.9% 50 ml @ 100 mls/hr IVPB Q8HR [facility] Rx# :[id number] Oral 500 Other: # Voids 2 - Exam GENERAL: The patient is alert and oriented x3, not in any acute distress. Well developed, well nourished. HEENT: Pupils are round and equally reacting to light. EOMI. No scleral icterus. No conjunctival pallor. Normocephalic, atraumatic. No pharyngeal erythema. No thyromegaly. CARDIOVASCULAR: S1 and S2 present. No murmurs, rubs, or gallops. PULMONARY: Chest is clear to auscultation, no wheezing or crackles. ABDOMEN: Soft, nontender, nondistended, normoactive bowel sounds. No palpable organomegaly. MUSCULOSKELETAL: No joint swelling or deformity. -EXTREMITIES: No cyanosis, clubbing, or pedal edema. Left leg is swollen pink and indurated, patient reports improvement NEUROLOGICAL: Gross neurological examination did not reveal any focal deficits. SKIN: No rashes. no petechiae. - Labs CBC & Chem 7: 03/10/22 07:24 03/10/22 07:24 Labs: Abnormal Lab Results - Last 24 Hours (Table) 03/09/22 03/10/22 03/10/22 Range/Units 20:13 07:13 07:24 PT 33.9 H (9.0-12.0) sec INR 3.4 H (<1.2) POC Glucose (mg/dL) 144 H 112 H (70-110) mg/dL Microbiology - Last 24 Hours (Table) 03/06/22 22:00 Blood Culture - Preliminary Blood No Growth after 72 hours 03/06/22 21:45 Blood Culture - Preliminary Blood No Growth after 72 hours Assessment and Plan Assessment: The flexible cellulitis Coagulopathy secondary to Coumadin History of PE on imaging Mild sepsis on admission, resolved Type 2 diabetes with hypoglycemia Plan: This is a pleasant 51 years old male with left leg cellulitis and supr atherapeutic INR Deep monitoring INR Hemoglobin is 11 no evidence of bleeding Left leg cellulitis is improving on cefazolin with plan to initiate treatment with oral Keflex. ID team on the case Pain controlled Past for PT/OT evaluation. Problems and management plan discussed with the patient and he verbalized understanding and acceptance
[2022-03-11] MEDS: SODIUM CHLORIDE 0.9% 1,000 ML IV SCH ×2 (01:19→04:52)
[2022-03-11 04:33] VITALS: RESP 16
[2022-03-11 05:59] LABS: INR 2.8 (<1.2); Prothrombin Time 27.7 sec (9.0-12.0)
[2022-03-11 07:15] LABS: Glucose,Whole Blood 101 mg/dL (70-110)
[2022-03-11] MEDS: IPRATROPIUM 0.5 MG/2.5 ML NEBU INHALATION SCH ×2 (07:17→10:58)
[2022-03-11] MEDS: SYMBICORT 80-4.5 MCG INHALER INHALATION SCH (07:17)
[2022-03-11] MEDS: INSULIN ASPART (NovoLOG) 100 UNIT/ML VIAL SQ SCH ×2 (07:39→13:09)
[2022-03-11] MEDS: METOPROLOL TARTRATE 25 MG TAB PO SCH (07:41)
[2022-03-11] MEDS: FUROSEMIDE 20 MG TAB PO SCH (07:42)
[2022-03-11] MEDS: FENOFIBRATE 160 MG TAB PO SCH (07:42)
[2022-03-11] MEDS: PANTOPRAZOLE 40 MG TABLET PO SCH (07:42)
[2022-03-11] MEDS: ASPIRIN 81 MG PO SCH (07:42)
[2022-03-11] MEDS: GLIMEPIRIDE 1 MG TAB PO SCH (07:42)
[2022-03-11] MEDS ORDERED: ERGOCALCIFEROL 1,250 MCG (50,000 IU) CAPSULE PO SCH (09:00)
--- NOTE | 2022-03-11 12:03 | P.DS ---
Providers Date of admission: 03/07/22 03:02 Expected date of discharge: 03/11/22 Attending physician: Eber Wheeler MD Consults: 03/07/22 10:02 Consult Physician Routine Consulting Provider: Aye Francis Consult Reason/Comments: sepsis Do you want consulting provider notified?: Yes 03/07/22 10:22 Consult Physician Routine Consulting Provider: Dallin Hodges Consult Reason/Comments: Mechanical valve and septic Do you want consulting provider notified?: Yes Primary care physician: Tiffany Gutierrez Hospital Course: Final Diagnoses: Sepsis secondary to left lower extremity cellulitis, in a patient with history of recurrent cellulitis, mechanical valve Leukocytosis, resolved Recent Symptomatic Bicuspid calcified aortic stenosis and insufficiency status post AVR with mechanical valve, ligation of left atrial appendage 02/04 History of Postoperative paroxysmal atrial fibrillation Coagulopathy secondary to Coumadin ;History of Hypercoagulopathy, on Coumadin, postop AVR, required vitamin K. CAD, history of LA, stents History of COVID June 2021 COPD Obstructive sleep apnea, Diabetes mellitus, hemoglobin A1c 5.8 Gastroesophageal reflux disease Hypertension Hyperlipidemia Ongoing Nicotine dependence Morbid obesity, BMI 37.6 Hospital course:This is a 51-year-old gentleman with past medical history of CAD, LA, stenting of RCA ,recent AVR with mechanical valve 02/04, PE on Eliquis, COPD, obstructive sleep apnea ,diabetes mellitus, gastroesophageal reflux disease, hypertension, hyperlipidemia, nicotine dependence, morbid obesity, Covid June 2021, recurrent lower extremity cellulitis, admitted with complaints of left lower extremity cellulitis. Reports sweats and chills 2 days, developed left calf pain accompanied by sweats and chills after grocery shopping-states he has recurrent cellulitis of the left lower extremity. Denies syncope. Denies lightheadedness, dizziness or focal deficits. Skin intact, no visual bites noted. Denies numbness or tingling of the affected site. Tib-fib fracture reported negative, no fracture, no focal bone distraction, no effusion. T-max 100.6, WBC 15.2., Sodium 132, creatinine 1.49(1.28 on discharge in ). lactic acid 1.1, CRP 19.6 .IV antibiotics adjusted from clindamycin to vancomycin and Unasyn. Blood sugars controlled, A1c 5.8. Denies any chest pain, palpitations or shortness of breath. Anticoagulated on Coumadin with INR 1.9. Evaluated by infectious disease, treated with IV antibiotics with significant clinical improvement. Afebrile, denies chest pain, palpitations or shortness of breath. Left lower extremity cellulitis with pretibial erythema and induration decreased. Minimal tenderness. Patient will be discharged home today, in a stable condition with guarded prognosis, pending final DC recommendations and clearance per ID. On antibiotics, Coumadin dose has been decreased, INR 03/09/2020 to 5.5, 3.4 on 03/10 and this morning 2.8. PT/INR ordered to be drawn on Tuesday 03/13-further recommendations outpatient pending regarding Coumadin dosing. The impression and plan of care has been dictated as directed. : I performed a history and examination of this patient, discussed the same with the dictator. I agree with the dictator's note ,documented as a scribe. Any additional findings or plans will be noted. Patient Condition at Discharge: Stable Plan - Discharge Summary Discharge Rx Participant: Yes New Discharge Prescriptions: New Warfarin [Coumadin] 2 mg PO DAILY@1800 #5 tab Continue Aspirin 81 mg PO DAILY #30 chew Ergocalciferol [Vitamin D2 (1250 Mcg = 70111 Iu)] 1,250 mcg PO MO Albuterol Inhaler [Ventolin Hfa Inhaler] 2 puff INHALATION RT-QID PRN PRN Reason: Shortness Of Breath Fluticasone/Umeclidin/Vilanter [Trelegy Ellipta 100-62.5-25] 1 puff INHALATION RT-DAILY Atorvastatin [Lipitor] 40 mg PO HS #30 tab Pantoprazole [Protonix] 40 mg PO AC-BRKFST #30 tab Acetaminophen Tab [Tylenol] 650 mg PO Q4HR PRN tab PRN Reason: Fever And/ Or Pain Furosemide [Lasix] 20 mg PO DAILY #30 tab Glimepiride [Amaryl] 2 mg PO BID Fenofibrate [Lofibra] 160 mg PO DAILY 30 Days #30 tab Meclizine [Antivert] 25 mg PO BID PRN #60 tab PRN Reason: Vertigo Metoprolol Tartrate [Lopressor] 75 mg PO BID Nitroglycerin Sl Tabs [Nitrostat] 0.4 mg SL Q5M PRN PRN Reason: Chest Pain Discontinued Warfarin [Coumadin] 3 mg PO DAILY@1800 Discharge Medication List Aspirin 81 mg PO DAILY #30 chew 01/21/19 [Rx] Albuterol Inhaler [Ventolin Hfa Inhaler] 2 puff INHALATION RT-QID PRN 10/01/21 [History] Ergocalciferol [Vitamin D2 (1250 Mcg = 61158 Iu)] 1,250 mcg PO MO 10/01/21 [History] Fenofibrate [Lofibra] 160 mg PO DAILY 30 Days #30 tab 10/03/21 [Rx] Fluticasone/Umeclidin/Vilanter [Trelegy Ellipta 100-62.5-25] 1 puff INHALATION RT-DAILY 01/30/22 [History] Acetaminophen Tab [Tylenol] 650 mg PO Q4HR PRN tab 02/11/22 [Rx] Atorvastatin [Lipitor] 40 mg PO HS #30 tab 02/11/22 [Rx] Furosemide [Lasix] 20 mg PO DAILY #30 tab 02/11/22 [Rx] Pantoprazole [Protonix] 40 mg PO AC-BRKFST #30 tab 02/11/22 [Rx] Meclizine [Antivert] 25 mg PO BID PRN #60 tab 03/02/22 [Rx] Glimepiride [Amaryl] 2 mg PO BID 03/07/22 [History] Metoprolol Tartrate [Lopressor] 75 mg PO BID 03/07/22 [History] Nitroglycerin Sl Tabs [Nitrostat] 0.4 mg SL Q5M PRN 03/07/22 [History] Warfarin [Coumadin] 2 mg PO DAILY@1800 #5 tab 03/11/22 [Rx] Follow up Appointment(s)/Referral(s): Eber Wheeler MD [STAFF PHYSICIAN] - 3 Days Ambulatory/Diagnostic Orders: Prothrombin Time INR [LAB.AMB] Time Frame: 03/13/22, Location: None Selected Activity/Diet/Wound Care/Special Instructions: Please follow with Dr. Jin as scheduled and have your INR checked in the office this week. On antibiotics, Coumadin dose has been decreased, INR 03/09/2020 to 5.5, 3.4 on 03/10 and this morning 2.8. PT/INR ordered to be drawn on Tuesday 03/13.
[2022-03-11 12:35] LABS: Glucose,Whole Blood 110 mg/dL (70-110)
[2022-03-11 14:08] VITALS: BP 143/79; PULSE 79; TEMP 98.1
[2022-03-11] MEDS ORDERED: WARFARIN 2 MG TAB PO ONE (18:00)
== END 2022-03-11 14:17 | disposition home or self-care (01) | DRG 872 ==
LOC: EC 20:50 → 5NMEDONC 03-07 03:02
PROVIDERS: ADMIT Family Medicine; ATTEND Family Medicine
DX: A41.9 Sepsis, unspecified organism (principal); L03.116 Cellulitis of left lower limb; Q23.1 Congenital insufficiency of aortic valve; I31.3 Pericardial effusion (noninflammatory); I25.10 Atherosclerotic heart disease of native coronary artery without angina pectoris; J44.9 Chronic obstructive pulmonary disease, unspecified; K21.9 Gastro-esophageal reflux disease without esophagitis; E78.5 Hyperlipidemia, unspecified; I10 Essential (primary) hypertension; G89.29 Other chronic pain; M54.50 Low back pain, unspecified; E66.01 Morbid (severe) obesity due to excess calories; E11.649 Type 2 diabetes mellitus with hypoglycemia without coma; G47.33 Obstructive sleep apnea (adult) (pediatric); I48.0 Paroxysmal atrial fibrillation; R79.1 Abnormal coagulation profile; T45.515A Adverse effect of anticoagulants, initial encounter; F17.210 Nicotine dependence, cigarettes, uncomplicated; M19.90 Unspecified osteoarthritis, unspecified site; Z68.37 Body mass index [BMI] 37.0-37.9, adult; Z71.6 Tobacco abuse counseling; Z79.899 Other long term (current) drug therapy; Z79.84 Long term (current) use of oral hypoglycemic drugs; Z79.82 Long term (current) use of aspirin; I25.2 Old myocardial infarction; Z86.711 Personal history of pulmonary embolism; Z79.01 Long term (current) use of anticoagulants; Z95.5 Presence of coronary angioplasty implant and graft; Z95.2 Presence of prosthetic heart valve; Z86.16 Personal history of COVID-19; Z82.49 Family history of ischemic heart disease and other diseases of the circulatory system
CPT/HCPCS: 36415; 80048; 80053; 83036; 83605; 83735; 85025; 85610; 86140; 87040; 87070; 93005; 94640; 96365; 96366; 99285

== ENCOUNTER → 2022-04-09 | Outpatient (CLI) | payer BC, OTHER ==
--- NOTE | 2022-04-09 14:06 | XR ---
EXAMINATION TYPE: XR chest 2V DATE OF EXAM: 04/09/2022 1:52 PM COMPARISON: Chest radiographs from 02/10/2022 TECHNIQUE: XR chest 2V Frontal and lateral views of the chest. CLINICAL INDICATION:Male, 51 years old with history of R07.9 CHEST PAIN, UNSPECIFIED; FINDINGS: Lungs/Pleura: There is no evidence of pleural effusion, focal consolidation, or pneumothorax. Pulmonary vascularity: Unremarkable. Heart/mediastinum: Cardiomediastinal silhouette is enlarged and stable. Post aortic valve repair yoseph nges. Left atrial appendage occlusion device is present. Musculoskeletal: No acute osseous pathology. Midline sternotomy wires are noted and stable. IMPRESSION: No acute cardiopulmonary disease/process. No significant change from prior examination.
== END | disposition home or self-care (01) ==
LOC: RADXRMAIN 13:38
PROVIDERS: ATTEND Thoracic Surgery (Cardiothoracic Vascular Surgery)
DX: I25.10 Atherosclerotic heart disease of native coronary artery without angina pectoris (principal); R07.9 Chest pain, unspecified
CPT/HCPCS: 71046

== ENCOUNTER → 2023-10-13 | Outpatient (CLI) | payer BC, OTHER ==
[2023-10-13 14:51] LABS: African American GFR (CKD) 75 (>60 ml/min/1.73 sqM); Blood Urea Nitrogen 18 mg/dL (9-20); Non-African American GFR(CKD) 65 (>60 ml/min/1.73 sqM)
--- NOTE | 2023-10-17 10:15 | CT ---
EXAMINATION TYPE: CT abdomen wo/w con DATE OF EXAM: 10/13/2023 COMPARISON: None INDICATION: renal mass, abdominal pain DLP: 2279 mGycm, Automated exposure control for dose reduction was used. CONTRAST: 100 mL of Isovue 300. Study performed with Oral Contrast TECHNIQUE: Axial images were obtained from above the diaphragm to the iliac crests in the axial plane at 5 mm thick sections. Reconstructed images are reviewed on the computer in the coronal plane. FINDINGS: Limited CT sections are obtained the lung bases. The lung bases are clear. CT ABDOMEN: Liver: Normal Spleen: Normal Pancreas: Normal Adrenal glands: The adrenal glands are normal. Gallbladder: Normal Kidneys: No masses are evident. No hydronephrosis is present. No cysts are present. Delayed images were obtained through the kidneys, which remain unremarkable. Early and delayed postcontrast imaging is performed. No renal stones are identified. Aorta: Vascular calcification is within the aorta. Inferior vena cava: Normal. Loops of bowel within the abdomen and upper pelvis are normal. The study has loops of bowel with incomplete distention or lacking oral contrast limiting their evaluation. Appendix: Normal as visualized. IMPRESSION: 1. No acute renal mass evident
== END | disposition home or self-care (01) ==
LOC: RADCTMAIN 13:47
PROVIDERS: ATTEND Family Medicine
DX: R19.4 Change in bowel habit (principal)
CPT/HCPCS: 82565; 84520; 74170; 36415; Q9967